=== PATIENT | male | born 1940 | race Caucasian/White ===

== ENCOUNTER 2016-04-30 19:26 | Emergency (ER) | payer OTHER ==
[~2016-04-30 19:26] MED LIST: AMLO10TA3 PO; CALC-235 PO; IPRA4AER IH; KLO1T PO; METO25TA99 PO; MOXI400T32 PO; OXYC5TAB72 PO; QUET50TA55 PO; TAMS0.4C98 PO; TERA2CAP4 PO; TRAZ-115 PO; VENL75TA3 PO
[2016-04-30 19:36] VITALS: BP 105/72; PULSE 69; RESP 18; O2SAT 98
--- NOTE | 2016-04-30 19:54 | ED.REPORT ---
HPI-Psychiatric Illness Date of Service Apr 30, 2016 ED Provider: Sebastian Herman DO A 76 year old male with a history of depression and PTSD from [place] presents to the ED complaining of depression. The pt states that he has been isolated by choice since 11/2015 and has been suffering from depression and suicidal ideation. The pt has been feeling "very desperate" and surrendered his firearm to avoid suicide. He experienced a flashback several days ago but did not come to the ED because he had other obligations at the time. The pt denies self- mutilation, suicidal ideation, or homicidal ideation while in the ED but is requesting medications to "settle him down." [facility] and is hoping to be admitted at that point. Nursing Notes Stated Complaint: DEPRESSION Chief Complaint: Psychiatric Complaint Nursing Notes Reviewed: Yes Allergies: Coded Allergies: meperidine (Verified Allergy, Severe, HIVES, 12/02/15) HAS TOLERATED OXYCODONE X MANY morphine (Verified Allergy, Severe, HIVES, 12/02/15) HAS TOLERATED OXYCODONE X MANY hydroxyzine (Verified Allergy, Intermediate, Hives, 12/02/15) codeine (Verified Allergy, Unknown, 12/02/15) HAS TOLERATED OXYCODONE X MANY Scheduled Amlodipine (Amlodipine) 10 Mg Tablet 10 MG PO DAILY Calcium Carbonate/Vitamin D3 (Calcium 250+D Tablet) 1 Each Tablet 2 EACH PO BID Metoprolol Succinate ER (Metoprolol Succinate ER) 25 Mg Tab.er.24h 25 MG PO DAILY Moxifloxacin (Moxifloxacin) 400 Mg Tablet 400 MG PO DAILY Quetiapine Fumarate (Quetiapine Fumarate) 50 Mg Tablet 50 MG PO HS Tamsulosin (Flomax) 0.4 Mg Capsule 0.4 MG PO QAM Terazosin (Terazosin) 2 Mg Capsule 2 MG PO HS Trazodone (Trazodone) 50 Mg Tablet 25 MG PO HS Venlafaxine (Venlafaxine) 75 Mg Tablet 225 MG PO DAILY Scheduled PRN Albuterol/Ipratropium (Combivent Respimat Inhal [place]) 120 Spr/4 Gm Inhaler 1 PUFF IH QID PRN PRN For Shortness of Breath Clonazepam (Clonazepam) 1 Mg Tablet 1 MG PO BID PRN PRN For Anxiety oxyCODONE (oxyCODONE) 5 Mg Tablet 5-10 MG PO Q4H PRN PRN For Pain General Time Seen by MD: 19:54 Chief Complaint Depressed Hx Obtained From: Patient Arrived By: Walk-in Onset Occurred: More than a week ago... Symptom Duration: Since onset Recent Healthcare: No recent hospitalization, Recent doctor visit Similar Sx Previous: Yes Risk-Psychiatric Illness Suicide Risk Stratification Suicide Risk Factors - Adult: : Access to firearms RF Statements: Risk factors reviewed Past Medical History Past Medical History depression PTSD from [place] Past Surgical History none reported Smoking History Unknown if Ever Smoker Ambulatory Status Independent Review of Systems Constitutional: Denies: Fever Respiratory: Denies: Non-productive cough, Shortness of breath Cardiovascular: Denies: Chest pain GI: Denies: Abdominal pain Skin: Denies Rash Psychiatric: Reports: Depression, Suicidal ideation (several days ago, not in ED), Denies: Homicidal ideation Complete sys rev & neg: except as marked. Physical Exam Initial Vital Signs Vital Signs (First) Date Time Temp Pulse Resp B/P Pulse Ox O2 Delivery O2 Flow Rate FiO2 04/30/16 19:36 36.4 69 18 105/72 98 Room Air Initial VS: Reviewed General/Constitutional: Awake, Alert rambling, explaining experiences in [place] Neurologic: Oriented X3, Speech NL, No motor deficits, No sensory deficits Psychiatric: Not suicidal, Not homicidal requesting help Head / Eyes: Atraumatic, Normocephalic, PERRL, EOMI ENT: Atraumatic, Airway patent, Mucous membranes moist Respiratory / Chest: Atraumatic, Breath sounds NL, Breath sounds = bilat, No respiratory distress Cardiovascular: Heart rate NL, Regular rhythm, Heart sounds NL Abdomen: Atraumatic, Soft, Non-tender Skin: Atraumatic, Color NL, No rash, Warm, Dry Neck: Atraumatic, Supple, Full range of motion Back: Atraumatic, Full range of motion Upper Extremity / MS: Atraumatic, Full range of motion Lower Extremity / Pelvis / MS: Atraumatic, Full range of motion Interpretation & Diagnostics Lab Results Interpretation Result Diagram: 04/30/16202004/30/162020 Test 04/30/16 20:21 White Blood Count 7.0th/mm3 (3.8-10.1) Red Blood Count 3.95mil/mm3 (4.40-5.80) Hemoglobin 10.9g/dL (13.8-17.2) Hematocrit 33.8% (41.0-50.0) Mean Corpuscular Volume 85.6fL (81-100) Mean Corpuscular Hemoglobin 27.6pg (27.0-35.0) Mean Corpuscular Hemoglobin Concent 32.2% (32.0-37.0) Red Cell Distribution Width 13.6% (12.3-15.4) Platelet Count 423bil/L (150-400) Neutrophils (%) (Auto) 66.5% (40-74) Lymphocytes (%) (Auto) 24.9% (14-46) Monocytes (%) (Auto) 8.0% (4-12) Eosinophils (%) (Auto) 0% (0-5) Basophils (%) (Auto) 0.3% (0-3) Sodium Level 133mEq/L (134-144) Potassium Level 4.3mEq/L (3.5-5.2) Chloride Level 100mEq/L (97-108) Carbon Dioxide Level 19mmol/L (18-29) Blood Urea Nitrogen 23mg/dL (8-27) Creatinine 1.71mg/dL (0.76-1.27) Estimat Glomerular Filtration Rate 42mL/min (>59) Glucose Level 97mg/dL (60-99) Calcium Level 9.2mg/dL (8.5-10.1) Total Bilirubin 0.3mg/dL (0.0-1.2) Aspartate Amino Transf (AST/SGOT) 59U/L (0-50) Alanine Aminotransferase (ALT/SGPT) 46U/L (0-44) Alkaline Phosphatase 110U/L (25-160) Total Protein 7.5g/dL (6.4-8.4) Albumin 3.7g/dL (3.4-5.0) Thyroid Stimulating Hormone (TSH) 3.040uIU/mL (0.450-4.500) Hold Forrest Top Tube Received (Received) Alcohols < 10mg/dL (0-10) Pulse Oximetry Interpretation Pulse Oximetry Interpretation: 98% on room air Pulse Oximetry: Pulse Ox normal Re-Eval/Medical Decision Med Decision/Clinical Course Mr. Benítez is not suicidal nor homicidal. He is clearly anxious. Our secondary social studies teacher recommends discharge with anxiolytics. Mr. Benítez does not like the benzodiazepines that he had been prescribed visit to sedating. He was given lorazepam and he felt much better. My intention was to discuss with him a short course of lorazepam until [facility]. However he left before I could talk to him at discharge. He was not suicidal nor homicidal slight could not force him to stay either way. We will notify the police to see if they can do a welfare check on him because he is a [place] with PTSD and access to firearms. I think that he is going to do well as long as close outpatient follow-up. Source of Hx: Old records Re-Evaluation/Progress : Time of Eval: 21:15 Patient Status: Condition improved Re-Evaluation/Progress Note: Pt rechecked, who is feeling significantly better with Ativan. The plan for discharge is discussed. The pt understands and agrees with the plan. All questions are addressed at this time. Consultation : Call Returned at: 20:48 [employer]: Agrees with eval Note: Spoke with secondary social studies teacher in the ED. warp worker recommends discharge. Counseled Regarding: Diagnosis, Lab results, Need for follow-up, When/why to return to ED Discharge & Departure Impression: Primary Impression: Posttraumatic stress disorder )( Condition at Discharge: No danger to self, No danger to others, No suicidal ideation, No homicidal ideation Disposition: Home Discharge Condition All VS Reviewed: Yes Condition: Stable Patient Instructions: Generalized Anxiety Disorder (GEN), Major Depression (DC) Additional Instructions: [facility] your [facility]. Return to the emergency department if you develop any new or worsening symptoms. Do not drive tonight or while you are under the influence of any sedating medications. Return if you develop any suicidal or homicidal ideations. Return if you feel that you are having a medical or psychiatric emergency. Referrals: [facility] Res[facility] Scribe Attestation Portions of this note were transcribed by Sourav Dodge. I, Dr. Herman personally performed the history, physical exam and medical decision-making; I reviewed and confirmed the accuracy of the information in the transcribed note. Signed by: Padmaja Whyte, 04/30/2016 and 2331. copies to: [facility] Res[facility] Sebastian Herman DO Apr 30, 2016 19:54 SOURAV DODGE Apr 30, 2016 20:16
[2016-04-30 20:34] LABS: BASOPHILS % (AUTO) 0.3 % (0-3); EOSINOPHILS % (AUTO) 0 % (0-5); Mean Corpuscular Hemoglobin 27.6 pg (27.0-35.0); Mean Corpuscular Volume 85.6 fL (81-100); NEUTROPHILS % (AUTO) 66.5 % (40-74); Platelet Count 423 bil/L (150-400)
[2016-04-30] MEDS ORDERED: LORazepam 0.5 mg Tablet PO ONE (20:50)
[2016-04-30] MEDS ORDERED: _LORazepam 1 mg Tablet PO PRN (21:25)
== END 2016-04-30 21:35 | disposition home or self-care (01) ==
LOC: EDUNIT# 19:26 → SED 19:26
DX: F43.10 Post-traumatic stress disorder, unspecified (principal); Z88.5 Allergy status to narcotic agent; Z88.8 Allergy status to other drugs, medicaments and biological substances
CPT/HCPCS: 36415; 80053; 82075; 84443; 85025; 99284; G0480

== ENCOUNTER 2016-05-19 17:45 | Emergency (ER) | payer OTHER ==
[~2016-05-19] VITALS: Ht 177.8 cm; Wt 75.9 kg
[2016-05-19 18:01] VITALS: BP 175/95; PULSE 87; RESP 20; O2SAT 93
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
[2016-05-19 19:53] VITALS: BP 164/98; PULSE 91; RESP 17; O2SAT 95
== END 2016-05-19 21:00 | disposition home or self-care (01) ==
LOC: SED 17:45
DX: M54.9 Dorsalgia, unspecified (principal); G89.29 Other chronic pain; M25.512 Pain in left shoulder; V89.2XXA Person injured in unspecified motor-vehicle accident, traffic, initial encounter; Y93.89 Activity, other specified; Y92.410 Unspecified street and highway as the place of occurrence of the external cause; Y99.8 Other external cause status; I10 Essential (primary) hypertension; K21.9 Gastro-esophageal reflux disease without esophagitis; J44.9 Chronic obstructive pulmonary disease, unspecified; Z90.5 Acquired absence of kidney; Z88.5 Allergy status to narcotic agent; Z88.8 Allergy status to other drugs, medicaments and biological substances

== ENCOUNTER 2016-05-21 03:43 | Inpatient (IN) | payer OTHER ==
[2016-05-21] VITALS (14 sets, daily range): BP systolic 126–168; BP diastolic 56–93; PULSE 57–104; RESP 18–24; O2SAT 93–98
[~2016-05-21] VITALS: Ht 177.8 cm; Wt 78.0 kg
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
[2016-05-21] MEDS ORDERED: Albuterol-Ipratropium 3 mL Inhalation Solution NEB ONE (03:55)
[2016-05-21] MEDS ORDERED: Furosemide 10 mg/mL 4 mL Inj IVPUSH ONE (03:55)
[2016-05-21] MEDS ORDERED: Albuterol 2.5 mg/3 mL Inhalation Solution NEB ONE ×2 (03:55→05:40)
[2016-05-21 04:15] LABS: BASOPHILS % (AUTO) 0.2 % (0-3); EOSINOPHILS % (AUTO) 0 % (0-5); MONOCYTES % (AUTO) 8.1 % (4-12); Mean Corpuscular Hemoglobin 27.8 pg (27.0-35.0); Mean Corpuscular Volume 87.7 fL (81-100); NEUTROPHILS % (AUTO) 72.3 % (40-74); Platelet Count 392 bil/L (150-400)
[2016-05-21 04:32] LABS: INR 0.97 ratio
[2016-05-21 04:38] LABS: TROPONIN T 0.021 ug/L (0.0-0.011)
[2016-05-21 04:49] LABS: Magnesium 1.8 mg/dL (1.6-2.6)
[2016-05-21 04:54] LABS: COLOR,URINE STRAW (YELLOW)
[2016-05-21 04:55] LABS: APPEARANCE,URINE CLEAR (CLEAR,HAZY); OCCULT BLOOD,URINE NEGATIVE (NEGATIVE); UROBILINOGEN,URINE NORMAL (NORMAL)
[2016-05-21] MEDS ORDERED: MethylprednisoLONE Sodium Succinate 62.5 mg/mL 2 mL Inj IVPUSH ONE (06:05)
--- NOTE | 2016-05-21 07:19 | DRSVH ---
PROCEDURE: X-RAY CHEST ONE VIEW, PORTABLE ([id number]) INDICATIONS: chf TECHNIQUE: One view of the chest was acquired. COMPARISON: [facility], CR, XR CHEST 2VW, 05/18/2016, 17:18. FINDINGS: Surgical changes and devices: Cardiac recording device is projected over the left apex. This Lungs and pleura: No pleural effusions or pneumothorax. Lungs are clear. Mediastinum: Mediastinal contours appear normal. Heart size is normal. Bones and chest wall: No suspicious bony lesions. Overlying soft tissues appear unremarkable. IMPRESSION: No acute cardiopulmonary findings. Dictated by: Mitra Marshall M.D. on 05/21/2016 at 7:16 Approved by: Mitra Marshall M.D. on 05/21/2016 at 7:17
[2016-05-21] MEDS ORDERED: Ondansetron 2 mg/mL 2 mL Inj IVPUSH PRN (08:00)
[2016-05-21] MEDS ORDERED: Polyethylene Glycol (PEG) 17 Gm Powder PO PRN (08:00)
[2016-05-21] MEDS ORDERED: Alum-Mag Hydrox-Simeth 30 mL Suspension PO PRN (08:00)
[2016-05-21] MEDS ORDERED: Albuterol-Ipratropium 3 mL Inhalation Solution NEB SCH (08:30)
--- NOTE | 2016-05-21 09:23 | NUR ---
Admission Patient arrived via WC from ED at approx 0915. Oriented patient to room and hospital policies. Patient ambulated to bathroom as SBA. Does state that he uses a FWW at home as baseline. Bed locked and in low position. Continue frequent rounding.
[2016-05-21] MEDS: Potassium Chloride 20 mEq SR Tablet PO SCH ×2 (11:25→21:47)
[2016-05-21] MEDS: Furosemide 10 mg/mL 4 mL Inj IVPUSH SCH ×2 (11:27→21:48)
[2016-05-21] MEDS ORDERED: Albuterol-Ipratropium 120 Spray 4 Gm Inhaler INHALATION PRN (14:10)
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
[2016-05-21] MEDS: MethylprednisoLONE Sodium Succinate 40 mg/mL Inj IVPUSH SCH (18:00)
--- NOTE | 2016-05-21 18:35 | NUR ---
Evaluation completed. Please go to "Notes" then click on "Assessments and Notes" (bottom left corner of screen). Then select appropriate discipline tab on top of screen.
[2016-05-21] MEDS: LORazepam 0.5 mg Tablet PO PRN (19:54)
[2016-05-21] MEDS: Albuterol-Ipratropium 3 mL Inhalation Solution NEB SCH (19:56)
[2016-05-21] MEDS ORDERED: CALCIUM CARBONATE PO SCH (20:30)
[2016-05-21] MEDS ORDERED: VITAMIN D3 PO SCH (20:30)
[2016-05-22] VITALS (16 sets, daily range): BP systolic 102–146; BP diastolic 61–83; PULSE 68–157; RESP 13–24; O2SAT 91–98
[2016-05-22] MEDS: MethylprednisoLONE Sodium Succinate 40 mg/mL Inj IVPUSH SCH ×3 (01:40→17:10)
[2016-05-22] MEDS: Albuterol-Ipratropium 3 mL Inhalation Solution NEB SCH ×4 (02:14→23:55)
[2016-05-22] MEDS: LORazepam 0.5 mg Tablet PO PRN ×3 (02:44→17:52)
[2016-05-22 05:48] LABS: BASOPHILS % (AUTO) 0.1 % (0-3); EOSINOPHILS % (AUTO) 0 % (0-5); MONOCYTES % (AUTO) 2.8 % (4-12); Mean Corpuscular Hemoglobin 28.1 pg (27.0-35.0); Mean Corpuscular Volume 86.6 fL (81-100); NEUTROPHILS % (AUTO) 93.1 % (40-74); Platelet Count 366 bil/L (150-400)
--- NOTE | 2016-05-22 05:55 | NUR ---
Anxiety/Pain Patient was anxious tonight, Ativan given x 2 for minimal calming. 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 Pain medication given x 1 for 10/10 general all over pain.
[2016-05-22 06:26] LABS: TROPONIN T 0.01 ug/L (0.0-0.011)
[2016-05-22 06:38] LABS: Magnesium 1.6 mg/dL (1.6-2.6); Phosphorus 2.9 mg/dL (2.5-4.9)
[2016-05-22] MEDS ORDERED: Magnesium Sulf 4 Gm/100 mL H2O 4 GM in IV Premix 1 EACH IV ONE (09:25)
[2016-05-22] MEDS: MeTOProlol XL 25 mg ER24 Tablet PO SCH (09:28)
[2016-05-22] MEDS: Furosemide 10 mg/mL 4 mL Inj IVPUSH SCH ×2 (09:28→22:15)
[2016-05-22] MEDS: Pantoprazole 40 mg ER24 Tablet PO SCH (09:28)
[2016-05-22] MEDS: Potassium Chloride 20 mEq SR Tablet PO SCH ×2 (09:29→22:15)
--- NOTE | 2016-05-22 11:46 | DRSVH ---
PROCEDURE: X-RAY CHEST, TWO VIEWS ([id number]) INDICATIONS: Follow up for CHF TECHNIQUE: 2 views of the chest were acquired. COMPARISON: [facility], CR, CHEST 1VW (PORTABLE), 12/16/2013, 23:36. [facility], CR, CHEST 2VW, 11/29/2013, 5:37. [facility], CR, XR CHEST 1VW (PORTABLE), 7, 4:13. [facility], CR, XR CHEST 2VW, 05/18/2016, 17:18. FINDINGS: Surgical changes and devices: A electronic device projecting to the left hemithorax. Lungs and pleura: No pleural effusions or pneumothorax. Lungs are clear. The nodular density in th e right lower lung zone is likely the nipple shadow. Mediastinum: Mediastinal contours are normal. Heart size is normal. Bones and chest wall: Multiple old left rib fractures noted. Soft tissues appear unremarkable. IMPRESSION: No acute cardiopulmonary disease. Dictated by: Tiana Gary M.D. on 05/22/2016 at 11:43 Approved by: Tiana Gary M.D. on 05/22/2016 at 11:44
[2016-05-22] MEDS ORDERED: Diltiazem 5 mg/mL 5 mL Inj IVPUSH ONE (13:30)
--- NOTE | 2016-05-22 13:36 | NUR ---
tachycardia parking technician notified this RN that the Pt had a HR that was sustaining in the 170s fir a few minutes. Pt was asymptomatic and resting in bed; denies chest pain but stated This RN asked tele to continue to monitor the pts HR on the patient who was asymptomatic. parking technician notified this RN 45 minutes later that pt was still in the 160-170s. Notified MD. Patient this time stated "I am having chest pain, but not heart pain, just chest pain from anxiety. I just don't feel well". VS: BP 128/77 P 156 RR 20, Spo2 92% on RA. Stat EKG preformed and Dilt bolus and drip ordered. PT to be transferred to [facility].
[2016-05-22] MEDS ORDERED: 0.9% Sodium Chloride 250 ML ONE (14:46)
[2016-05-22] MEDS: levoFLOXacin Inj 500 MG in IV Premix 1 EACH IV SCH (14:54)
[2016-05-22] MEDS: Diltiazem Inj 125 MG in 0.9% Sodium Chloride 100 ML, Pharmacy To Mix 1 EA IV SCH ×2 (15:08→23:06)
[2016-05-22] MEDS ORDERED: LORazepam 0.5 mg Tablet PO ONE (18:45)
--- NOTE | 2016-05-22 19:34 | NUR ---
Transfer to [facility] Afib/Agitation/weakness walking Pt transferred to [facility] at 14:00 from [facility], report received from ISABEL Pangsugar house supervisor: Pt has difficulty describing sensation in chest. He denies that it is pain, but reports he can feel his heart beating quickly. Tele: afib 150s on arrival to floor, Dilt bolus given and gtt started, rate down to 130-140s, gtt titrated up to 15mg/hr. Resp: Pt denies SOB, SPo2 92% on RA. GI/: Pt denies n/v/d Neuro: Pt calm, polite, and receptive to care upon arrival to [facility]. Pt increasingly anxious and reports feeling constrained and claustrophobic. Pt started demanding to return to "his" room on third floor. Ativan 0.5mg given. Dr Dominguez called for anxiolytic order. Ativan dose increased and given and PRN haldol started, but not given. Pt calmed once told that the Dr wanted him to remain on second floor. Pt also came out into [place] with IV pole at one point. While discussing his desire to leave with the nurse the pt's legs grew weak and shaky, pt was assisted back to bed by two nurses without falls but remained weak and unsteady with difficulty walking. Pt reported some pain in his legs which he said was not new. Despite questioning, it was difficult to ascertain from pt whether leg weakness is new.
[2016-05-22] MEDS ORDERED: LORazepam 1 mg Tablet PO PRN (20:00)
--- NOTE | 2016-05-22 22:11 | PCM.PNMED ---
Subjective Date of Service May 22, 2016 Subjective The patient is complaining of extremely high anxiety today. He thanked me for the Ativan and stated that it was helping him. However, the dose had to be escalated as patient continued to have a significant amount of anxiety. Patient has no other new complaints. He has some chest pressure. However, he claims a chest pressure is due to his anxiety and he is used to it. He does not think it is his heart. Exam Vital Signs Vital Sign - Last Date Time Temp Pulse Resp B/P Pulse Ox O2 Delivery O2 Flow Rate FiO2 05/22/16 21:30 36.5 106 24 102/63 93 Room Air 05/22/16 05:19 2.00 Intake and Output 05/21/16 05/21/16 05/22/16 Cumulative From/Thru 15:00 23:00 07:00 05/21/16 03:44 - 05/22/16 06:21 Intake Total 872 ml 800 ml 1672 ml Output Total 2125 ml 570 ml 2695 ml Balance -1253 ml 230 ml -1023 ml Intake Oral 872 ml 800 ml 1672 ml Output Urine Total 2125 ml 570 ml 2695 ml # Voids 2 2 # Bowel Movements 0 0 0 Exam General: Patient appears somewhat anxious today. Otherwise he is in no apparent distress. HEENT: Head is atraumatic and normocephalic. Eyes: Pupils are equally round and reactive to light and accommodation. Extraocular muscles are intact. Sclera are white, anicteric. Subconjunctival mucosa is pink. Ears and nose are unremarkable. Oropharynx: There is no mucosal lesions, there is no thrush, there is no pharyngitis. Neck: Is supple, there are no nodes, or masses or tenderness. Chest: Is slightly clearer today with persistent bibasilar rales and scattered rhonchi. Heart: Rate is tachycardic, rhythm is irregular. There is no murmur, rub or gallop appreciated. Abdomen: Good bowel sounds are present. Abdomen is soft, nontender, no organomegaly or masses were appreciated. Extremities: Are symmetrical and well perfused. There is no edema, there is no cellulitis, no rash. Neurologic: There are no focal neurological deficits. Cranial nerves II through XII are intact. There are no sensory or motor deficits. Psychiatric: Patients mood is somewhat anxious. Genital: Deferred Rectal: Deferred Lab and Diagnostics Result Diagram: 05/22/16 0530 05/22/16 0530 X-Rays, CTs and MRIs PROCEDURE: X-RAY CHEST ONE VIEW, PORTABLE ([id number]) INDICATIONS: chf TECHNIQUE: One view of the chest was acquired. COMPARISON: [facility], CR, XR CHEST 2VW, 05/18/2016, 17:18. FINDINGS: Surgical changes and devices: Cardiac recording device is projected over the left apex. This Lungs and pleura: No pleural effusions or pneumothorax. Lungs are clear. Mediastinum: Mediastinal contours appear normal. Heart size is normal. Bones and chest wall: No suspicious bony lesions. Overlying soft tissues appear unremarkable. IMPRESSION: No acute cardiopulmonary findings. Dictated by: Mitra Marshall M.D. on 05/21/2016 at 7:16 Approved by: Mitra Marshall M.D. on 05/21/2016 at 7:17 Assessment & Plan The patient is a 76-year-old white male with a history of hypertension, depression, pacemaker insertion and COPD who was just admitted to the [facility] PTSD unit in [place] for 2 weeks and was just discharged less than 48 hours ago. He began feeling like he was getting pneumonia in the left lung. He has had pneumonia in an numerous occasions. He was recently seen at [facility] as well as the [place] where he was diagnosed with pleurisy was put on penicillin. His cough and shortness of breath worsened following discharge and he beat became concerned again that he had pneumonia. Patient decided to seek medical care before symptoms became too severe as he has been hospitalized for 2 weeks at a time in the past for pneumonia. He states that he had pneumonia last November and it lasted 13 weeks". Therefore, patient came to [facility] emergency room for further evaluation and treatment. She was evaluated by Dr. Garcia. Patient was felt to have extreme shortness of breath. Patient had edema and jugular venous distention. His chest x-ray showed mildly increased heart size and mild venous engorgement consistent with CHF. His BNP was mildly elevated. Patient was treated with 40 mg of Lasix and with several 100 mL of urine output. Patient was also given a nebulizer treatment with some improvement. Is currently requesting a second treatment. He was eventually admitted to the hospitallist service for further evaluation and treatment. # Acute on chronic respiratory failure with exacerbation of COPD and hypoxia. - Patient is not on oxygen at home and is requiring approximately 3 L here of O2 per nasal cannula despite Lasix and 125 mg of IV Solu-Medrol and SVN treatments. - We will continue SVN treatments - We will continue his Medrol 40 mg IV every 8 hours - We will start levofloxacin 500 mg IV every 24 hours. - We will respiratory virus PCR panel - Check blood cultures and sputum culture if available - Check urine for streptococcal urinary antigen and for Legionella urinary antigen # Suspected congestive heart failure - We will check echocardiogram to further evaluate. The echocardiogram has not yet been either done or red. - We will give further doses of Lasix 40 mg IV twice a day - We will consider beta nivia therapy if necessary. However due to new onset atrial fibrillation with rapid ventricular response today will start on a Cardizem drip after a Cardizem IV bolus. - Patient feels some chest pressure and troponins have been trended and have normalized. He attributes it to anxiety. # Chest pressure - Troponins have been trended and have normalized. She will troponins were not very remarkable. - Could be exacerbated by anxiety and/or atrial fibrillation with rapid ventricular response. - Consider cardiology consult # Atrial fibrillation with rapid ventricular response. - Cardizem drip has been started after Cardizem bolus. - We will order anxiety relief with Ativan 1 mg by mouth 4 times a day when necessary - Consider cardiology consultation. # History of obesity - Patient had gastric bypass surgery and lost approximately 300 pounds - Consider nutrition consult - Multivitamin therapy # History of PTSD, anxiety and depression. Patient was just recently released from a two week stay in a locked inpatient PTSD unit at the [facility] in [place]. - We will offer lorazepam while in patient patient states that he does not want lorazepam ordered for home. - We will observe closely. # Disposition: I suspect patient will be here several more days for the evaluation and treatment of the above problems.. Pain Evaluation: Adequate Pain Control GI Prophylaxis: Proton Pump Inhibitor VTE Prophylaxis: Sub-Q Enoxaparin Resuscitation Status: CPR: Attempt Resuscitation Sumit Dominguez MD May 22, 2016 22:11
[2016-05-23] VITALS (12 sets, daily range): BP systolic 92–115; BP diastolic 56–84; PULSE 67–111; RESP 13–18; O2SAT 89–93
[2016-05-23 03:06] LABS: BASOPHILS % (AUTO) 0.1 % (0-3); EOSINOPHILS % (AUTO) 0 % (0-5); MONOCYTES % (AUTO) 2.4 % (4-12); Mean Corpuscular Hemoglobin 28.1 pg (27.0-35.0); Mean Corpuscular Volume 87.8 fL (81-100); NEUTROPHILS % (AUTO) 93.7 % (40-74); Platelet Count 422 bil/L (150-400)
[2016-05-23 03:28] LABS: Magnesium 2.5 mg/dL (1.6-2.6)
[2016-05-23] MEDS: Albuterol-Ipratropium 3 mL Inhalation Solution NEB SCH ×4 (05:32→22:24)
--- NOTE | 2016-05-23 05:45 | NUR ---
Demeanor/Behavior: Pt. agitated and argumentative throughout shift. Pt. highly anxious throughout shift as well. PRN Ativan administered with little effect. Pt. refused HS Seroquel. This nurse and charge nurse Domingo Yu RN at bedside throughout large portion of shift calming and de-escalating pt. Pt. has variable mentation and answers orientation questions correctly during assessment, however is confused at times and accuses staff of keeping him in a "beauty parlor" and a "storage closet". Pt. also needs very frequent reminders of what equipment and medications are being utilized for. Sitter at bedside for pt. agitation. Pt. remains agitated and extremely argumentative throughout shift. Additionally, pt. demanding that this nurse stay in room at all times with pt.
[2016-05-23] MEDS: LORazepam 1 mg Tablet PO PRN ×4 (08:08→22:04)
[2016-05-23] MEDS: Diltiazem Inj 125 MG in 0.9% Sodium Chloride 100 ML, Pharmacy To Mix 1 EA IV SCH (08:09)
[2016-05-23] MEDS: Furosemide 10 mg/mL 4 mL Inj IVPUSH SCH ×2 (08:33→22:03)
[2016-05-23] MEDS: MethylprednisoLONE Sodium Succinate 40 mg/mL Inj IVPUSH SCH ×2 (08:38)
--- NOTE | 2016-05-23 10:18 | NUR ---
Social Work: Initial Assessment Data & Assessment: See Initial Assessment. EMR reviewed. Patient is a 76 y/o male that admitted on 05/21/16 for COPD and CHF per H&P. House Coordinator met with patient to complete initial assessment, SW role reviewed and discharge plan discussed. Patient is alert and oriented x 3. patient uses a hearing device to hear. Patient could not recall PCP and patient insurance is [employer]. Patient has no LTC benefits. Patient does not have an Advance Directive and decline the information. Patient OLEGARIO is his friend Chuy Wiseman- [phone]. Patient lives home alone in a one story home with 2 steps to enter. Patient uses a WC at baseline, but he also has a walker. Patient has no HH history, but he has been to [facility] and rehab in the past. SW notified patient that PT is recommendin SNF. Patient stated that he is not sure if he wants to go to a SNF when discharged. SW will continue to work with patient on discharge plan. SW provided phone number and plan on white board in room. SW will continue to follow. Plan:Pt to likely discharge home with HH vs SNF. PT recommended SNF. SW will continue to follow. Addendum: 05/23/16 at 1027 by JOHNNY TOMAS Amended: Links added.
[2016-05-23] MEDS: Potassium Chloride 20 mEq SR Tablet PO SCH ×2 (10:28→22:03)
[2016-05-23] MEDS: levoFLOXacin Inj 500 MG in IV Premix 1 EACH IV SCH (10:28)
[2016-05-23] MEDS: MeTOProlol XL 25 mg ER24 Tablet PO SCH (10:29)
[2016-05-23] MEDS: Venlafaxine XR 75 mg ER24 Capsule PO SCH (10:29)
[2016-05-23] MEDS: Pantoprazole 40 mg ER24 Tablet PO SCH (10:29)
--- NOTE | 2016-05-23 10:54 | NUR ---
Spoke with Montse in patient access at [facility], this patient is 100% connected and he also holds MCR A & B. Updated ROLL HANDLER
--- NOTE | 2016-05-23 13:35 | PCM.PNMED ---
Subjective Date of Service May 23, 2016 Subjective Overnight: Per nursing notes patient reported to be agitated and argumentative throughout shift, refusing Seroquel and eventually requiring sitter at bedside for agitation. Today: Patient awake and alert and sitting up in bed. Difficult to direct patient regarding current situation and health status. Patient remains very fixated on his PTSD and care received prior to this admission. As convinced he has a pneumonia as he has had them in the past, fairly uncooperative in regards to helping us complete interview and exam. States that he does not trust us ( the doctors in the room) - but was able to be redirected with assurances that his wishes will be respected regarding his medical care and medications administered to him. Does not endorse any specific complaints. Exam Vital Signs Vital Sign - Last Date Time Temp Pulse Resp B/P Pulse Ox O2 Delivery O2 Flow Rate FiO2 05/23/16 11:45 36.9 95 16 113/84 93 Room Air 05/22/16 05:19 2.00 Intake and Output 05/22/16 05/22/16 05/23/16 Cumulative From/Thru 15:00 23:00 07:00 05/21/16 03:44 - 05/23/16 05:42 Intake Total 1022 ml 917 ml 3611 ml Output Total 650 ml 250 ml 3595 ml Balance 372 ml 667 ml 16 ml Intake Oral 872 ml 917 ml 3461 ml IV Total 150 ml 150 ml Output Urine Total 650 ml 250 ml 3595 ml # Voids 2 4 # Bowel Movements 0 0 Exam General: Awake and alert sitting up in bed, in no apparent distress with hearing aid device in place. Affect is guarded and somewhat confrontational. HEENT: Normocephalic, atraumatic. External ears without defect. Pupils equal, round, and reactive to light and accommodation. Neck: Supple with full range of motion. No jugular venous distension. Cardiovascular: Regular rate and rhythm with no murmurs appreciated. Pulmonary: Upper anterior wheezes, bilateral lower lobe crackles - or prominent on the right. Normal respiratory effort. No use of accessory muscles. Abdomen: Soft, nontender, nondistended. Extremities: No clubbing, cyanosis, edema, or lymphadenopathy appreciated. Skin: Normal temperature, turgor, and texture Neurological: Cranial nerves grossly intact. Psychiatric: Distant and guarded affect becoming easily agitated and confrontational. IVs and Medications Medications Reviewed: Medications were reviewed in detail Lab and Diagnostics Result Diagram: 05/23/16 0255 05/23/16 0255 Microbiology Urine Strep pneumo antigen negative Blood cultures pending Nasopharyngeal viral PCR pending X-Rays, CTs and MRIs . X-RAY CHEST ONE VIEW, PORTABLE IMPRESSION: No acute cardiopulmonary findings. Dictated by: Mitra Marshall M.D. on 05/21/2016 at 7:16 X-RAY CHEST, TWO VIEWS IMPRESSION: No acute cardiopulmonary disease. Dictated by: Tiana Gary M.D. on 05/22/2016 at 11:43 Assessment & Plan is a 76-year-old male with past medical history of hypertension, PTSD, depression, pacemaker placement and history of pneumonia admitted for shortness of breath and cough concern for pneumonia. Hospital day 2. 1. Acute on chronic respiratory failure with exacerbation of COPD and hypoxia. Present on admission. Ongoing - On presentation patient states this is secondary to pneumonia as he has had significant history of same per patient - Patient is not on oxygen at home and is requiring approximately 3 L here of O2 per nasal cannula despite Lasix and 125 mg of IV Solu-Medrol and SVN treatments. - Time of interview today patient on room air saturating low 90s - Continue duo nebs - Prednisone 40 mg daily - Levofloxacin discontinued, no clinical indication bacterial pneumonia - Appropriate cultures and serologies negative to date 2. Atrial fibrillation with rapid ventricular response. Not present on admission. Ongoing - Etiology unknown, possibly secondary to #3, patient believes secondary to anxiety as in #4 - Cardizem drip has been started after Cardizem bolus. - Attempt to wean Cardizem drip - Metoprolol XL 25 mg daily - Initial troponin slightly elevated 0.013, repeat troponin negative 2 - Consider cardiology consultation. 3. Suspected congestive heart failure. Present on admission. Ongoing - Echo pending, prior echo 10/22/2014 showed EF 60/65% - Lasix 40 mg IV twice a day - Consider beta nivia therapy if necessary. 4. PTSD with anxiety and depression. Present on admission. Ongoing - Just completed 2 week stay at [facility] for same - Continue lorazepam 1 mg every 6 when necessary - Continue Seroquel 25 mg by mouth 3 times a day - Continue venlafaxine 225 mg daily - Continue with doctor of nurse anesthesia (sitter) 5. Chest pressure - Possibly secondary to anxiety or A. fib as an #2 - Continue current medications as above 6. History of obesity - Patient had gastric bypass surgery and lost approximately 300 pounds - Consider nutrition consult - Multivitamin therapy 7. Hyperglycemia. Present on admission. Ongoing - A1c 5.3 - Continue with diabetic diet # Disposition: Remain inpatient status for at least another day, test results regarding pneumonia still pending and he remains on a diltiazem drip for rate control. Pain Evaluation: Adequate Pain Control GI Prophylaxis: Proton Pump Inhibitor VTE Prophylaxis: Sub-Q Enoxaparin Resuscitation Status: CPR: Attempt Resuscitation Attending Statement The patient was seen and examined together with Dr. Marx on 05/23/2016 and I agree with the history, exam and plan as outlined in the note above. . BRANDON MARX DO May 23, 2016 13:35 Sanjay Stout MD May 23, 2016 17:19
--- NOTE | 2016-05-23 14:11 | DRSVH ---
[facility] [address] [place] [address] Echocardiogram Report Name: JAYLEN LOPEZ RStudy Date : 05/23/2016 Height: 70 in Hospital Exam Location: [facility] Weight: 150 lb Gender: Male BSA: 1.8 m2 : 1940 Age: 76 yrs BP: 110/65 mmHg Reason For Study: CHF Ordering Physician: Performed By: Rosalia Cruz Interpretation Summary Left ventricular systolic function is normal without focal wall motion abnormalities. The ejection fraction is estimated to be 60-65%. LVEF has not changed since priro study. Left ventricular wall thickness is mild-moderately increased. The right ventricle is at the upper limits of normal in size. The right ventricular systolic function is normal. Right ventricular systolic pressure is estimated to be 20 mmHg plus the clinically estimated CVP which cannot be estimated on this exam. The left atrium is severely dilated. The right atrium is severely dilated. There is mild mitral regurgitation. There is no other significant valvular heart disease. The aortic root is mildly dilated. The ascending aorta is mildly enlarged. The aortic arch is mildly enlarged. Procedure: A two-dimensional transthoracic echocardiogram with color flow and Doppler was performed. The study quality was technically adequate. Comparison is made with the echocardiogram of 10-22-2014. The subcostal views were not obtained due to no visualization. The patient was in atrial fibrillation with rapid ventricular response during the exam with a heart rate exceeding 100 bpm. Left Ventricle: The left ventricle is normal in size. Left ventricular wall thickness is mild-moderately increased. Left ventricular systolic function is normal without focal wall motion abnormalities. The ejection fraction is estimated to be 60-65%. Diastolic function could not be accurately assessed due to atrial fibrillation. Right Ventricle: The right ventricle is at the upper limits of normal in size. The right ventricular systolic function is normal. Atria: The left atrium is severely dilated. The right atrium is severely dilated. There is no Doppler evidence for an atrial septal defect. Mitral Valve: The mitral valve leaflets appear normal. There is no evidence of stenosis, fluttering, or prolapse. There is mild mitral regurgitation. Aortic Valve: The aortic valve is trileaflet. The aortic valve is mildly calcified. The calculated aortic valve area is 1.9 cm2. The peak aortic velocity is 1.8 m/sec. The aortic valve mean gradient is 8 mmHg. There is no hemodynamically significant valvular aortic stenosis. No aortic regurgitation is present. Tricuspid Valve: The tricuspid valve leaflets are thin and pliable. There is trace tricuspid regurgitation. Right ventricular systolic pressure is estimated to be 20 mmHg plus the clinically estimated CVP which cannot be estimated on this exam. Pulmonic Valve: The pulmonic valve is not well visualized. There is no pulmonic valvular regurgitation. There is no other significant valvular heart disease. Great Vessels: The aortic root is mildly dilated. The ascending aorta is mildly enlarged. The aortic arch is mildly enlarged. The pulmonary artery is not well visualized, but is probably normal size. The inferior vena cava was not visualized. Pericardium/ Pleura There is no pericardial effusion. There is no pleural effusion. MMode/2D Measurements & Calculations LVIDd: 4.2 cm LA dimension: 5.0 cm RA long axis LVOT diam: 2.1 cm LVIDs: 2.9 cm AoV Opening FS: 30.1 % LA A2 area: 28.6 cm RA area EPSS: 0.24 cm LA A4 area: 23.5 cm Ao root diam IVSd: 1.3 cm LA length (vol) : 27.3 cm LVPWd: 1.5 cm RA vol asc Aorta Diam LA vol: 94.7 ml : 107.ml LA vol index RA Ao Arch Diam (Prox : 58.1 mm/ Trans): 3.6 cm : 51.3 ml/m2 RVDd major : 6.5 cm LV villeda. diameter/BSA LV sys. diameter/BSA RVD2 (mid) (cm/m^2): 2.3 (cm/m^2): 1.6 : 3.8 cm Doppler Measurements & Calculations Ao V2 max MV E max darío Med Peak E' Darío TR max darío : 184.7 cm/sec : 106.1 cm/sec : 221.7 cm/sec Ao max PG E/E' med: 15.1 TR max P.7 mmHg : 13.7 mmHg Lat Peak E' Darío PA V2 max: 92.5 cm/sec Ao mean PG PA mean P.2 mmHg E/E' lat: 11.5 PA Accel Time LVOT Max Darío E/e' average : 0.10 sec : 131.7 cm/sec ALICE(I,D): 1.9 cm sev ratio Ao V2 mean LV V1 max PG PA V2 mean ALICE indexed to BSA : 134.3 cm/sec : 71.9 cm/sec (cm^2/m^2): 1.0 Ao V2 VTI: 30.6 cmLV V1 VTI: 16.3 cm ALICE(V,D): 2.6 cm2 Reading Physician:DIONISIO
--- NOTE | 2016-05-23 14:46 | NUR ---
Social Work: Brief Note Data Assessment: SW met with patient and attempted to obtain SNF and HH choice, but patient stated that he did not want SNF. Patient stated that he was unable to make a HH decision until he speaks with his senior attorney. SW will continue to follow patient to assist with discharge needs. Plan: Patient will likely discharge home with HH. SW will continue to follow patient and assist with discharge needs. Mariana Cai, SAMEERA, ACM
--- NOTE | 2016-05-23 16:12 | NUR ---
Scheduled hospital [facility] June 03 check in 1040AM for 1050AM with Updated NOTCHING MACHINE OPERATOR
--- NOTE | 2016-05-23 18:11 | NUR ---
Sitter at bedside for safety. Pt cooperative with care for the most part although did refuse to work with PT. He was assisted with a bed bath. Accepting of scheduled medications although does refuse scheduled seroquel. Anxious at times and requesting ativan PRN, given twice this shift. Continues to have shoulder/back/hip pain and was given oxycodone x2 during this shift. Cardiac: Telemetry A-Fib, HR in low 100's. Cardizem gtt infusing at 15mg/hr. Resp: O2 sats stable on RA, SOB with exertion GI/: no BM yet this shift. Reports some issues retention Neuro: AxO x3. Anxiety and paranoia at times, PRN ativan given. Int:
--- NOTE | 2016-05-23 23:22 | NUR ---
Labile emotions and demeanor: Pt. having very labile emotions and demeanor towards staff. Pt. very agitated, aggressive, and argumentative towards staff at beginning of shift. Pt. threatening towards staff. Physician arrived to bedside to appease pt. who was demanding to speak with the physician. Pt. remained agitated even after physician left bedside. At approximately 2100, pt. suddenly became very cooperative and pleasant towards staff. Pt. now thanking staff for care and agreed to take HS medications. Giovanny Hart CNA and charge nurse Shannon Pennington RN witnessing pt.'s labile behavior.
[2016-05-24] VITALS (14 sets, daily range): BP systolic 85–110; BP diastolic 60–74; PULSE 85–108; RESP 10–22; O2SAT 88–94
[2016-05-24] MEDS: Diltiazem Inj 125 MG in 0.9% Sodium Chloride 100 ML, Pharmacy To Mix 1 EA IV SCH ×2 (00:36→22:44)
[2016-05-24] MEDS: LORazepam 1 mg Tablet PO PRN ×2 (04:15→09:28)
[2016-05-24] MEDS: Albuterol-Ipratropium 3 mL Inhalation Solution NEB SCH ×4 (04:57→23:13)
--- NOTE | 2016-05-24 06:25 | NUR ---
Urinary retention: Pt. only able to void 50mL urine independently during shift. Pt. states he has urge to void, however is unable to do so despite multiple attempts. Bladder scan performed, indicating 609mL in bladder. Physician notified of findings, orders received to perform straight cath. Straight cath completed, 700mL light kaveh urine drained from bladder.
--- NOTE | 2016-05-24 08:44 | DRSVH ---
PROCEDURE: X-RAY CHEST ONE VIEW, PORTABLE ([id number]) INDICATIONS: Poss Pneumonia TECHNIQUE: One view of the chest was acquired. COMPARISON: [facility], CR, XR CHEST 2VW, 05/22/2016, 8:29. [facility], CR, XR CHEST 1VW (PORTABLE), 05/21/2016, 4:13. FINDINGS: Surgical changes and devices: Electronic device overlying the left hemithorax. Lungs and pleura: No pleural effusions or pneumothorax. Lungs are clear. Aortic calcification seco ndary to atherosclerosis. Mediastinum: Mediastinal contours appear normal. Heart size is normal. Bones and chest wall: No suspicious bony lesions. Overlying soft tissues appear unremarkable. Maddy re bilateral shoulder joint degeneration. There is an ossicle inferior to the right glenohumeral join t compatible with an intra-articular body. IMPRESSION: No acute cardiopulmonary disease. Dictated by: Tiana Gary M.D. on 05/24/2016 at 8:42 Approved by: Tiana Gary M.D. on 05/24/2016 at 8:42
[2016-05-24 09:06] LABS: BASOPHILS % (AUTO) 0.1 % (0-3); EOSINOPHILS % (AUTO) 0 % (0-5); MONOCYTES % (AUTO) 5.4 % (4-12); Mean Corpuscular Hemoglobin 27.9 pg (27.0-35.0); Mean Corpuscular Volume 87.7 fL (81-100); NEUTROPHILS % (AUTO) 89.1 % (40-74); Platelet Count 369 bil/L (150-400)
[2016-05-24] MEDS: Pantoprazole 40 mg ER24 Tablet PO SCH (09:13)
[2016-05-24] MEDS: Venlafaxine XR 75 mg ER24 Capsule PO SCH (09:14)
[2016-05-24] MEDS: predniSONE 20 mg Tablet PO SCH (09:14)
[2016-05-24] MEDS: Potassium Chloride 20 mEq SR Tablet PO SCH ×2 (09:14→20:30)
[2016-05-24] MEDS: Furosemide 10 mg/mL 4 mL Inj IVPUSH SCH (09:29)
[2016-05-24 09:43] LABS: Magnesium 2.3 mg/dL (1.6-2.6)
--- NOTE | 2016-05-24 10:27 | NUR ---
Refused medication/Behavior Pt refused his Seroquel medication this AM. Cooperative with AM cares. Stated that he was starting to become agitated and was in pain. Administered 5mg PO Oxycodone and 1mg PO Ativan, pt upon reassessment is sleeping. Addendum: 05/24/16 at 1159 by ABEL GERBER RN Pt refusing PT. PT requested that pt move his briefcase off of his lap to allow him to get up. Pt was unable to move his briefcase off of his lap and became extremely agitated. Pt was reassured that we would not move his briefcase and he became calm. Will reapproach at later time. Addendum: 05/24/16 at 1611 by ABEL GERBER RN Pt refused of midday Seroquel.
--- NOTE | 2016-05-24 10:59 | PCM.PNMED ---
Subjective Date of Service May 24, 2016 Subjective Overnight: Per telemetry Patient remained in A. fib with IVCD running and heart rate 70s throughout the evening. Occasional PVCs no other events reported. Per nurse's notes. Patient continued to have labile emotions and demeanor towards staff, times becoming very agitated and aggressive/argumentative as well as threatening. After medications patient was cooperative and pleasant towards staff. Today: Patient to sleep at beginning of interview, awoken to voice though is hard of hearing. Was very calm and cooperative and very respectful towards physicians in rooms. Stating he has no specific complaints no cough shortness of breath or chest pain, though does endorse a left hip pain which she states is being well taken care of and managed with his current medication regimen. Exam Vital Signs Vital Sign - Last Date Time Temp Pulse Resp B/P Pulse Ox O2 Delivery O2 Flow Rate FiO2 05/24/16 09:06 36.9 91 15 100/66 92 Room Air 05/23/16 23:13 2.00 Intake and Output 05/23/16 05/23/16 05/24/16 Cumulative From/Thru 15:00 23:00 07:00 05/21/16 03:44 - 05/24/16 06:22 Intake Total 292 ml 1916 ml 1081 ml 6900 ml Output Total 200 ml 750 ml 4545 ml Balance 292 ml 1716 ml 331 ml 2355 ml Intake Oral 1546 ml 911 ml 5918 ml IV Total 292 ml 370 ml 170 ml 982 ml Output Urine Total 200 ml 750 ml 4545 ml # Voids 4 # Bowel Movements 0 0 0 Exam General: Awake and alert laying in hospital bed in no apparent distress without hearing aid device in place. Pleasant and cooperative demeanor. HEENT: Normocephalic, atraumatic. External ears without defect. Pupils equal, round, and reactive to light and accommodation, tinted eyeglasses in place Neck: Supple with full range of motion. No jugular venous distension. Cardiovascular: Regular rate and rhythm with no murmurs appreciated. Pulmonary: Upper anterior lung field expiratory wheezes bilaterally. Normal respiratory effort. No use of accessory muscles. Abdomen: Soft, nontender, nondistended. Extremities: No edema appreciated Skin: Normal temperature, turgor, and texture Neurological: Cranial nerves grossly intact. Psychiatric: Calm cooperative and pleasant. IVs and Medications Medications Reviewed: Medications were reviewed in detail Lab and Diagnostics Result Diagram: 05/24/16 0850 05/24/16 0850 Microbiology Urine Strep pneumo antigen negative Blood cultures pending Nasopharyngeal viral PCR pending X-Rays, CTs and MRIs . X-RAY CHEST ONE VIEW, PORTABLE IMPRESSION: No acute cardiopulmonary findings. Dictated by: Mitra Marshall M.D. on 05/21/2016 at 7:16 X-RAY CHEST, TWO VIEWS IMPRESSION: No acute cardiopulmonary disease. Dictated by: Tiana Gary M.D. on 05/22/2016 at 11:43 X-RAY CHEST ONE VIEW, PORTABLE IMPRESSION: No acute cardiopulmonary disease. Dictated by: Tiana Gary M.D. on 05/24/2016 at 8:42 Cardiac Echo Impressions . Echocardiogram Report Interpretation Summary Left ventricular systolic function is normal without focal wall motion abnormalities. The ejection fraction is estimated to be 60-65%. LVEF has not changed since priro study. Left ventricular wall thickness is mild-moderately increased. The right ventricle is at the upper limits of normal in size. The right ventricular systolic function is normal. Right ventricular systolic pressure is estimated to be 20 mmHg plus the clinically estimated CVP which cannot be estimated on this exam. The left atrium is severely dilated. The right atrium is severely dilated. There is mild mitral regurgitation. There is no other significant valvular heart disease. The aortic root is mildly dilated. The ascending aorta is mildly enlarged. The aortic arch is mildly enlarged. Assessment & Plan is a 76-year-old male with past medical history of hypertension, PTSD, depression, pacemaker placement and history of pneumonia admitted for shortness of breath and cough concern for pneumonia. Hospital day 3. 1. Acute on chronic respiratory failure with exacerbation of COPD and hypoxia. Present on admission. Ongoing - On presentation patient states this is secondary to pneumonia as he has had significant history of same - Patient is not on home O2, was initially requiring O2 nasal cannula to maintain saturation - Currently saturating in the low 90s on room air ir - Hold Lasix secondary to #5 - Prednisone 40 mg by mouth daily - DuoNeb's when necessary - Levofloxacin discontinued, no clinical indication bacterial pneumonia - Respiratory PCR positive for RSV - All other appropriate cultures and serologies negative to date 2. Atrial fibrillation with rapid ventricular response. Not present on admission. Ongoing - Etiology unknown, possibly secondary to #3, patient believes secondary to anxiety as in #4 - Cardizem drip continues - Continue to attempt to wean Cardizem drip - Metoprolol XL 25 mg twice a day - Initial troponin slightly elevated 0.013, repeat troponin negative 2 - Consider cardiology consultation if rate control achieved 3. Suspected congestive heart failure. Present on admission. Ongoing - Echo pending, prior echo 10/22/2014 showed EF 60/65% - Repeat echo showed EF 6065%, LVEF not changed. Normal RV function, severely dilated left and right atrium - Hold Lasix secondary to #5 - Consider beta nivia therapy if necessary. 4. PTSD with anxiety and depression. Present on admission. Ongoing - Just completed 2 week stay at [facility] in [place] for same - Continue lorazepam 1 mg every 4 when necessary - Continue Seroquel 25 mg by mouth 3 times a day - Continue venlafaxine 225 mg daily - Continue home trazodone 5 mg at bedtime - Continue with supervisor reinforced steel placing (sitter) 5. GILMAR. Present on admission. Ongoing -Creatinine has trended up, on admission 1.72 to 3.23 today -Renal US pending -Urine output last 24 hrs 750mL -Bladder scan showed ~100mL today -Repeat bladder scan tonight -Hold Lasix -Nephrology consult 6. Chest pressure. Present on admission. Resolved - Possibly secondary to anxiety or A. fib as an #2 - Continue current medications as above - Today patient has no complaints of this 7. History of obesity. Present on admission. Resolved - Patient had gastric bypass surgery and lost approximately 300 pounds - BMI 21.7 - Consider nutrition consult - Multivitamin therapy 8. Hyperglycemia. Present on admission. Ongoing - A1c 5.3 - Continue with diabetic diet 9. Hyponatremia. Not present on admission. Ongoing - Most likely secondary to delusional status, patient +2.3 L to date - Continue to monitor 10. BPH. Present on admission. Ongoing - Continue home doxazosin - Continue home tamsulosin # Disposition: Remain inpatient status for at least another day, patient has viral pneumonia. He remains on a diltiazem drip currently trying to wean off. We will reassess tomorrow anticipate discharge 1-2 days. [facility] contacted today no beds. Pain Evaluation: Adequate Pain Control GI Prophylaxis: Proton Pump Inhibitor VTE Prophylaxis: Sub-Q Enoxaparin Resuscitation Status: CPR: Attempt Resuscitation Attending Statement The patient was seen and examined together with Dr. Marx on 05/24/2016 and I agree with the history, exam and plan as outlined in the note above. . BRANDON MARX DO May 24, 2016 10:59 Sanjay Stout MD May 27, 2016 09:59
[2016-05-24] MEDS ORDERED: LORazepam 1 mg Tablet PO PRN (12:30)
--- NOTE | 2016-05-24 16:09 | NUR ---
Social Work Note: Continued Discharge Planning Data& Assessment: SW received phone call from Bautista ruby [place] socially responsible investment adviser who follows pt in the community. Pt had recent psychiatric hospitalization from May 06-May 18 for PTSD, anxiety and suicidal ideation. Pt has not communicated any suicidal ideation during this hospitalization. Pt has an appointment with psychiatric prescriber Janette David on May 31 at 2:45, at [address] through the [place] choice program. Pt was provided with [facility] phone number and with nurses aid was able to speak with Bautista today. SW to continue to follow and check in with regarding safety and if he is experiencing any suicidal ideation. SW to continue to follow. Plan: SW to continue to engage pt in discharge planning, encouraging home health vs. SNF and check in with regarding safety and if he is experiencing any suicidal ideation. SW to continue to follow. NATALIE Hernadez
--- NOTE | 2016-05-24 18:11 | NUR ---
Behavior Pt combative, attempting to leave AMA. Afib per monitor car operator, HR 125. No reported pain. Unable to reassure or calm patient despite multiple attempts. Dr Desir notified, IV ativan ordered and administered without change in pt behavior. Security, RN and sitter remain at bedside. Soft restraints placed for patient safety. Will continue to monitor.
[2016-05-24] MEDS: 0.9% Sodium Chloride 1,000 ML IV SCH (18:29)
[2016-05-24] MEDS ORDERED: Haloperidol 5 mg/mL Inj IVPUSH ONE (20:05)
--- NOTE | 2016-05-24 20:09 | NUR ---
/cardiac No urine output since 6:25 this AM when pt straight catheterization done. Bladder scan results showing < 150cc urine present in bladder. Patient denies distention or urge to void. Continues in atrial fibrillation per natural resources technician. HR controlled in the 90s. Pressure stable, 90s/60s. Dr Desir contacted and updated on patient status. Order for IVFs given. Continue to monitor I&0s closely and bladder scan PRN to r/o urinary retention.
--- NOTE | 2016-05-24 22:55 | NUR ---
Agitation Pt agitated with care. In restraints since previous shift. Difficult to redirect. Pt attempting to take off Cristine sleeve and remove IV. Pt stating "why are you doing this to me!." Calm approach given. PRN Haldol 5mg IV push given. Pt asleep within 5 mins of administration. VSS. Pt At times hypotensive at 93/59 being the lowest BP on the left arm.
[2016-05-25] VITALS (12 sets, daily range): BP systolic 95–111; BP diastolic 57–73; PULSE 85–125; RESP 12–22; O2SAT 90–100
[2016-05-25] MEDS: 0.9% Sodium Chloride 1,000 ML IV SCH ×2 (04:28→13:55)
[2016-05-25 05:18] LABS: Magnesium 2.3 mg/dL (1.6-2.6)
[2016-05-25] MEDS: Albuterol-Ipratropium 3 mL Inhalation Solution NEB SCH ×4 (06:46→20:17)
[2016-05-25 07:14] LABS: BASOPHILS % (AUTO) 0.1 % (0-3); EOSINOPHILS % (AUTO) 0 % (0-5); MONOCYTES % (AUTO) 6.8 % (4-12); Mean Corpuscular Hemoglobin 27.8 pg (27.0-35.0); Mean Corpuscular Volume 87.8 fL (81-100); NEUTROPHILS % (AUTO) 83.8 % (40-74); Platelet Count 351 bil/L (150-400)
[2016-05-25] MEDS: Potassium Chloride 20 mEq SR Tablet PO SCH ×2 (08:30→19:02)
--- NOTE | 2016-05-25 10:29 | NUR ---
D/C from PT; reorder when appropriate D/C from PT secondary to inablility or refusal to participate x3. Please reorder once pt is appropriate to participate.
[2016-05-25] MEDS: LORazepam 1 mg Tablet PO PRN ×3 (11:09→18:43)
[2016-05-25] MEDS: predniSONE 20 mg Tablet PO SCH (11:09)
[2016-05-25] MEDS: Venlafaxine XR 75 mg ER24 Capsule PO SCH (11:09)
--- NOTE | 2016-05-25 11:34 | PCM.PNMED ---
Subjective Date of Service May 25, 2016 Subjective Overnight:Per telemetry Patient remained in A. fib with IVCD running and heart rate in the 90s with a run of bigeminal PVCs. Patient remained agitated and attempting to remove IVs stating "why are you doing this to me" in addition to IV Ativan and Haldol 5 mg IV push given with affect. Elizondo cath placed with approximately 1 L urine drained. Today: Patient , and cooperative during interval, Ativan 1 mg push given just prior. States he is in no pain, has no known history of urinary retention or urinary obstruction. Agrees to be complacent with renal ultrasound which is still pending. Does not state he has any chest pain, shortness of breath or any other complaints. Exam Vital Signs Vital Sign - Last Date Time Temp Pulse Resp B/P Pulse Ox O2 Delivery O2 Flow Rate FiO2 05/25/16 10:34 106 05/25/16 07:54 15 106/73 93 Nasal Cannula 2.00 05/25/16 04:28 36.8 Intake and Output 05/24/16 05/24/16 05/25/16 Cumulative From/Thru 15:00 23:00 07:00 05/21/16 03:44 - 05/25/16 06:08 Intake Total 580 ml 1577 ml 9057 ml Output Total 0 ml 975 ml 5520 ml Balance 580 ml 602 ml 3537 ml Intake Oral 580 ml 300 ml 6798 ml IV Total 1277 ml 2259 ml Output Urine Total 0 ml 975 ml 5520 ml # Voids 4 # Bowel Movements 0 0 Exam General: Awake and alert laying in hospital bed in no apparent distress. Pleasant and cooperative demeanor, inquisitive about health status and care plan. HEENT: Normocephalic, atraumatic. External ears without defect. Pupils equal, round, and reactive to light and accommodation, tinted eyeglasses in place Neck: Supple with full range of motion. No jugular venous distension. Cardiovascular: Regular rate and rhythm with no murmurs appreciated. Pulmonary: Upper anterior lung field expiratory wheezes bilaterally. Normal respiratory effort. No use of accessory muscles. Abdomen: Soft, nontender, nondistended. Extremities: No edema appreciated Skin: Normal temperature, turgor, and texture Neurological: Cranial nerves grossly intact. Psychiatric: Calm cooperative and pleasant. IVs and Medications Medications Reviewed: Medications were reviewed in detail Lab and Diagnostics Result Diagram: 05/25/16 0655 05/25/16 0945 Microbiology Urine Strep pneumo antigen negative Blood cultures pending Nasopharyngeal viral PCR pending X-Rays, CTs and MRIs . X-RAY CHEST ONE VIEW, PORTABLE IMPRESSION: No acute cardiopulmonary findings. Dictated by: Mitra Marshall M.D. on 05/21/2016 at 7:16 X-RAY CHEST, TWO VIEWS IMPRESSION: No acute cardiopulmonary disease. Dictated by: Tiana Gary M.D. on 05/22/2016 at 11:43 X-RAY CHEST ONE VIEW, PORTABLE IMPRESSION: No acute cardiopulmonary disease. Dictated by: Tiana Gary M.D. on 05/24/2016 at 8:42 Cardiac Echo Impressions . Echocardiogram Report Interpretation Summary Left ventricular systolic function is normal without focal wall motion abnormalities. The ejection fraction is estimated to be 60-65%. LVEF has not changed since priro study. Left ventricular wall thickness is mild-moderately increased. The right ventricle is at the upper limits of normal in size. The right ventricular systolic function is normal. Right ventricular systolic pressure is estimated to be 20 mmHg plus the clinically estimated CVP which cannot be estimated on this exam. The left atrium is severely dilated. The right atrium is severely dilated. There is mild mitral regurgitation. There is no other significant valvular heart disease. The aortic root is mildly dilated. The ascending aorta is mildly enlarged. The aortic arch is mildly enlarged. Assessment & Plan is a 76-year-old male with past medical history of hypertension, PTSD, depression, pacemaker placement and history of pneumonia admitted for shortness of breath and cough concern for pneumonia. Hospital day 4. 1. Acute on chronic respiratory failure with exacerbation of COPD and hypoxia. Present on admission. Ongoing - On presentation patient states this is secondary to pneumonia as he has had significant history of same - Patient is not on home O2, was initially requiring O2 nasal cannula to maintain saturation - Currently saturating in the low 90s on room air ir - Hold Lasix secondary to #5 - Prednisone 40 mg by mouth daily - DuoNeb's when necessary - Levofloxacin discontinued, no clinical indication bacterial pneumonia - Respiratory PCR positive for RSV - All other appropriate cultures and serologies negative to date 2. Atrial fibrillation with rapid ventricular response. Not present on admission. Ongoing - Etiology unknown, possibly secondary to #3, patient believes secondary to anxiety as in #4 - Cardizem drip continues - Continue to attempt to wean Cardizem drip - Metoprolol XL 25 mg twice a day - Initial troponin slightly elevated 0.013, repeat troponin negative 2 - Consider cardiology consultation if rate control achieved 3. Suspected congestive heart failure. Present on admission. Ongoing - Echo 10/22/2014 showed EF 60/65% - Repeat echo showed EF 6065%, LVEF not changed. Normal RV function, severely dilated left and right atrium - Hold Lasix secondary to #5 - Consider beta nivia therapy if necessary. 4. PTSD with anxiety and depression. Present on admission. Ongoing - Just completed 2 week stay at [facility] in [place] for same - Continue lorazepam 1 mg every 4 when necessary - Continue Seroquel 25 mg by mouth 3 times a day - Continue venlafaxine 225 mg daily - Continue home trazodone 5 mg at bedtime - Continue with distribution supervisor (sitter) - Ativan 1-2 mg by mouth every 4 when necessary - Ativan 1 mg IV push every 4 when necessary - - Secondary to recurrent nighttime behavioral incidents patient will have Doxazosyn 2 mg by mouth at bedtime replaced with prazosin 2 mg at bedtime - If behavioral incidents continue give additional prazosin 2 mg (2 hours after initial dose), monitor for hypotension - If patient does not find benefit with this new medication regiment will obtain psychiatric consult tomorrow 05/26/2016 5. GILMAR. Present on admission. Ongoing -Creatinine has trended up, on admission 1.72 to 3.83 today -Renal US pending -Overnight Elizondo cath placed with 1 L urine drainage -Hold Lasix -Nephrology consult, the recommendations are appreciated 6. Chest pressure. Present on admission. Resolved - Possibly secondary to anxiety or A. fib as an #2 - Continue current medications as above -Patient continues to have no complaints of chest pain 7. History of obesity. Present on admission. Resolved - Patient had gastric bypass surgery and lost approximately 300 pounds - BMI 21.7 - Consider nutrition consult - Multivitamin therapy 8. Hyperglycemia. Present on admission. Ongoing - A1c 5.3 - Continue with diabetic diet 9. Hyponatremia. Not present on admission. Ongoing - Most likely secondary to delusional status, patient +2.3 L to date - Continue to monitor 10. BPH. Present on admission. Ongoing - Continue home doxazosin - Continue home tamsulosin # Disposition: Remain inpatient status for at least another day, patient has viral pneumonia. He remains on a diltiazem drip currently trying to wean off. We will reassess tomorrow anticipate discharge 1-2 days. [facility] Pain Evaluation: Adequate Pain Control GI Prophylaxis: Proton Pump Inhibitor VTE Prophylaxis: Sub-Q Enoxaparin Resuscitation Status: CPR: Attempt Resuscitation Attending Statement The patient was seen and examined together with Dr. Marx on 05/25/2016 and I agree with the history, exam and plan as outlined in the note above. . BRANDON MARX DO May 25, 2016 11:34 Sanjay Stout MD May 27, 2016 09:59
--- NOTE | 2016-05-25 11:45 | PCM.CHPMED ---
Subjective Date of Service: May 25, 2016 Provider requesting consult: BRANDON SANCHEZ DO Primary Physician: Admitting Physician: Sumit Dominguez MD Primary Care Physician: Jourdan Attending Physician: Sumit Dominguez MD Chief Complaint: Chief Complaint: shortness of breath and trouble with urination History of Present Illness: Nephrology Consult Note The patient is a 76-year-old white male with a history of hypertension, depression, pacemaker insertion and COPD who was just admitted to the [facility] PTSD unit in [place] for 2 weeks and was discharged less than 48 hours prior to readmission into [facility]. The patient states that he was becoming short of breath with some pain with breathing but denies a cough, reports from the H& P indicated that the patient felt he was developing a pneumonia as he has had pneumonia several times in the past. 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 He is seen by a urologist for his BPH and feels as if his difficulty with urination has become worse recently within the last several days. The patient denies a history of kidney stones, gout, HIV/hepatitis , diabetes, cataracts, protein of blood in his urine. The patient denies taking NSAIDS frequently and states that he uses them less than one dose a week. He is very hunger right now. He is a long time [facility] resident and denies hospitalization at other facilities besides the [facility] or [facility]. He is typically followed by a PCP at the [facility], however he cannot recall the doctors name. He is unsure of his past medical history at this time and cannot recall his prior surgeries. from the H&P from Dr. Dominguez "He began feeling like he was getting pneumonia in the left lung. He has had pneumonia in an numerous occasions. He was recently seen at [facility] as well as the [facility] where he was diagnosed with pleurisy was put on penicillin. His cough and shortness of breath worsened following discharge and he beat became concerned again that he had pneumonia. Patient decided to seek medical care before symptoms became too severe as he has been hospitalized for 2 weeks at a time in the past for pneumonia. He states that he had pneumonia last November and it lasted 13 weeks". Therefore, patient came to [facility] emergency room for further evaluation and treatment. She was evaluated by Dr. Garcia. Patient was felt to have extreme shortness of breath. Patient had edema and jugular venous distention. His chest x-ray showed mildly increased heart size and mild venous engorgement consistent with CHF. His BNP was mildly elevated. Patient was treated with 40 mg of Lasix and with several 100 mL of urine output. Patient was also given a nebulizer treatment with some improvement. Is currently requesting a second treatment. He was eventually admitted to the hospitallist service for further evaluation and treatment." Review of Systems: A comprehensive review of systems was obtained and all are negative except for what is included in the HPI. PMH Past Medical History obtained from the H&P PTSD, anxiety and depression after being involved in combat in [place] Bilateral cataracts History of obesity status post gastric bypass surgery patient weighed over 450 pounds and now weighs 154 pounds. BPH Surgical History obtained from the H&P of Dr. 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 The patient has had all this tooth removed. Home Medications Amlodipine (Amlodipine) 10 Mg Tablet 10 MG PO DAILY Calcium Carbonate/Vitamin D3 (Calcium 250+D Tablet) 1 Each Tablet 2 EACH PO BID Metoprolol Succinate ER (Metoprolol Succinate ER) 25 Mg Tab.er.24h 25 MG PO DAILY Moxifloxacin (Moxifloxacin) 400 Mg Tablet 400 MG PO DAILY Quetiapine Fumarate (Quetiapine Fumarate) 50 Mg Tablet 50 MG PO HS Tamsulosin (Flomax) 0.4 Mg Capsule 0.4 MG PO QAM Terazosin (Terazosin) 2 Mg Capsule 2 MG PO HS Trazodone (Trazodone) 50 Mg Tablet 25 MG PO HS Venlafaxine (Venlafaxine) 75 Mg Tablet 225 MG PO DAILY Scheduled PRN Albuterol/Ipratropium (Combivent Respimat Inhal [place]) 120 Spr/4 Gm Inhaler 1 PUFF IH QID PRN PRN For Shortness of Breath Clonazepam (Clonazepam) 1 Mg Tablet 1 MG PO BID PRN PRN For Anxiety oxyCODONE (oxyCODONE) 5 Mg Tablet 5-10 MG PO Q4H PRN PRN For Pain Allergies: Coded Allergies: meperidine (Verified Allergy, Severe, HIVES, 12/02/15) HAS TOLERATED OXYCODONE X MANY morphine (Verified Allergy, Severe, HIVES, 12/02/15) HAS TOLERATED OXYCODONE X MANY hydroxyzine (Verified Allergy, Intermediate, Hives, 12/02/15) codeine (Verified Allergy, Unknown, 12/02/15) HAS TOLERATED OXYCODONE X MANY Family History Family History obtained from the H&P of Dr. Dominguez His father at 59 of a myocardial infarction. He was a heavy smoker and drinker. Patient's mother at 40 after attempting suicide with a 22 caliber gun injuring her right frontal lobe she had to have a plate put over her frontal part of her cranium. She of complications at the age of 40 Patient one sister who is 72 years old and has COPD and is on home oxygen.. Social History Hx Alcohol Use: YesHx Substance Use: NoHx Tobacco Use: Yes (quit 24 years ago ) Smoking Status: Former Smoker (patient quit 31 years ago) Unknown if Ever Smoker Living Arrangement: Alone Exam Vital Signs Vital Sign - Last Date Time Temp Pulse Resp B/P Pulse Ox O2 Delivery O2 Flow Rate FiO2 05/25/16 10:34 106 05/25/16 07:54 15 106/73 93 Nasal Cannula 2.00 05/25/16 04:28 36.8 Intake and Output 05/24/16 05/24/16 05/25/16 Cumulative From/Thru 15:00 23:00 07:00 05/21/16 03:44 - 05/25/16 06:08 Intake Total 580 ml 1577 ml 9057 ml Output Total 0 ml 975 ml 5520 ml Balance 580 ml 602 ml 3537 ml Intake Oral 580 ml 300 ml 6798 ml IV Total 1277 ml 2259 ml Output Urine Total 0 ml 975 ml 5520 ml # Voids 4 # Bowel Movements 0 0 Additional Information: General: Awake and alert laying in hospital bed in no apparent distress. Pleasant and cooperative demeanor, inquisitive about health status and care plan. tinted eyeglasses in place Eyes: PERRLA, EOMI, anicteric sclera, noninjected conjunctiva HEENT: Normocephalic, atraumatic. External ears without defect. dry mucus membranes without central cyanosis or cobblestoning mucosa Neck: Supple with full range of motion. noted jugular venous distension. Cardiovascular: Regular rate and rhythm with no murmurs appreciated. Pulmonary: Upper anterior lung field expiratory wheezes bilaterally mild course breath sounds noted in the axillary bases bilaterally. Normal respiratory effort. No use of accessory muscles. Abdomen: Soft, nontender, nondistended. Extremities: pulses intact bilaterally at the radial and dorsalis pedis with no edema, cyanosis or clubbing appreciated Skin: Normal temperature, turgor, and texture Neurological: Cranial nerves grossly intact, without focal neurologic deficit Psychiatric: Calm cooperative and pleasant. Oriented to Time and person not place Lab and Diagnostics Result Diagram: 05/25/16 0655 05/25/16 0945 X-Rays, CTs and MRIs X-RAY CHEST ONE VIEW, PORTABLE ([id number]) IMPRESSION: No acute cardiopulmonary disease. Dictated by: Tiana Gary M.D. on 05/24/2016 at 8:42 Approved by: Tiana Gary M.D. on 05/24/2016 at 8:42 Additional Diagnostics: renal US ordered and pending Assessment & Plan Assessment is a 76-year-old male with past medical history of hypertension, PTSD, depression, pacemaker placement and history of pneumonia admitted for shortness of breath and cough concern for pneumonia. 1. Acute kidney injury ond chronic kidney disease. Present on admission. Ongoing -Creatinine has trended up, on admission 1.72 to 3.83 today - baseline creatine appears elevated around 1.3 or higher is is unclear currently the etiology of the kidney disease, this will need to be elucidated in the future -Likely a combination of poor renal perfusion with Afib with RVR and rapid reduction of blood pressure from rate control with diltiazem drip and rapid correction of hypervolemia with lasix therapy with systolic blood pressure dropping from 150s to 80s within approximately one day -NS at 100mL per hour will discontinue after this bag of IV fluids is finished to avoid fluid overload of CHF -Renal US pending -Overnight Schaffer cath placed with 1 L urine drainage -Hold Lasix -Changed Enoxaparin to Heparin SQ for DVT prophylaxis given poor creatinine clearance 2. Suspected congestive heart failure. Present on admission. Ongoing - prior echo 10/22/2014 showed EF 60/65% - Repeat echo showed EF 60-65%, LVEF not changed. Normal RV function, severely dilated left and right atrium - Hold Lasix secondary to #1 - discontinue IV fluids after current bag finished to avoid fluid overload - Consider beta nivia therapy if necessary. 3. urinary retention with a history of BPH. Present on admission. Ongoing - Continue home doxazosin - Continue home tamsulosin - bladder scan showed urinary retention and a reported 1000mL of urine with schaffer placed by primary team - renal US ordered and pending for causes of obstruction Patient was seen and examined. Agreed with Dr. Nice' assessment and plan as outlined. Thank you for the consultation. Problems: Pain Evaluation: Adequate Pain Control GI Prophylaxis: H2 nivia VTE Prophylaxis: Sub-Q Heparin (Unfractionated) Resuscitation Status: CPR: Attempt Resuscitation Gabe Nice DO May 25, 2016 11:45 Jose Valles MD May 26, 2016 08:49
--- NOTE | 2016-05-25 13:53 | NUR ---
NUTRITION ASSESSMENT: ASSESS: Pt is a 76yo M admitted for COPD/CHF. Pt has history of PTSD and on occasion can be combative and experience increased agitation. Currently requiring sitter. He is on a Heart healthy diet and due to GILMAR, nephrology has placed him on a 2g K restriction. He has been tolerating his diet well. PO varies a bit, overall eating ~50% of meals. Pt H&P, pt has history of ~300lb intentional wt loss due to gastric bypass surgery. Wt has been stable since admit. PMHX: HTN, PTSD, depression, pacemaker, pneumonia, COPD, gastric bypass. LABS: Reviewed. Na 133, Cl 96, Bun 61, Continuous Improvement Manager 3.83, Glu 156, Ca 8.3, Alb 3.4 MEDS: Reviewed. prednisone GI: 0 BM SKIN: Rogelio 16, no major issues CURRENT WTS: 68.7kg, BMI 21.8kg/m2, admit wt: 68.7kg, IBW: 75kg DIET: Heart Healthy, 2g K restriction, PO 0-75% (avg ~50%) EST. NEEDS: GILMAR Kcals: 1715-2060kcal/day (25-30kcal/kg) Pro: 40-55g/day (.6-.8g/kg) NUTRITION DIAGNOSIS: 1.) Altered nutrition related lab values related to GILMAR as evidence by need for 2gm K diet. 2.) Variable PO intake related at ams as evidence by PO intake varying from 0-75% and pt experiencing episodes of agitation NUTRITION INTERVENTION: 1.) Continue current diet at this time. If PO intake continues to be variable, recommend addition of Suplena nutrition shake on L tray as it is high in kcal, low in protein and low in K. MONITOR / EVAL: PO, labs, wt, BM, POC, nutrition status. Will continue to monitor per moderate nutrition risk guidelines.
--- NOTE | 2016-05-25 14:23 | DRSVH ---
PROCEDURE: US RENAL SONOGRAM INDICATIONS: 76-year-old male with elevated creatinine levels. TECHNIQUE: Real-time scanning was performed of the kidneys and bladder, with image documentation. COMPARISON: None. FINDINGS: Image quality is suboptimal secondary to patient combativeness and lack of cooperation. Kidneys: Kidneys are normal in size. Right kidney measures 11.3 cm long; left kidney measures 10.4 cm long. Right renal cortical thickness is 1.3 cm; left renal cortical thickness is 1.2 cm. Renal pa renchyma is diffusely hyperechoic. No hydronephrosis or nephrolithiasis. No suspicious solid mass l esions. Bladder: Decompressed by a Elizondo catheter, and unable to be further evaluated. Miscellaneous: No free pelvic fluid. IMPRESSION: A post-renal cause is not identified for renal insufficiency. Echogenic bilateral kidneys , consistent with medical renal disease. Dictated by: Enoch Zhu M.D. on 05/25/2016 at 14:19 Approved by: Enoch Zhu M.D. on 05/25/2016 at 14:22
[2016-05-25] MEDS: Polyethylene Glycol (PEG) 17 Gm Powder PO SCH (15:17)
--- NOTE | 2016-05-25 18:20 | NUR ---
Constipation/Afib/LOC Cardiac: Pt denies CP, Tele afib 90-115. cardizem gtt continues at 5mg/hr. Resp: SpO2: 93% on RA. Denies SOB at this time. GI/: schaffer draining to gravity. Denies n/v. No stool since 05/21 Mirilax and senna given. Pt very hungry this shift. Neuro: Alert and oriented x1. Pt states, "I don't know where I am". Agitated, at times. PRN ativan IV and PO ordered. Pt given 1mg ativan IV this AM followed by another 2mg PO two hours later when pt requested them. pt sleeping most of shift. Pt's LOC is diminished from when he was admitted.
[2016-05-25 19:02] LABS: APPEARANCE,URINE CLEAR (CLEAR,HAZY); COLOR,URINE YELLOW (YELLOW); PH,URINE 5.5 (5.0-8.0)
[2016-05-25 19:03] LABS: OCCULT BLOOD,URINE MODERATE (NEGATIVE); UROBILINOGEN,URINE NORMAL (NORMAL)
[2016-05-25] MEDS: Heparin 5,000 Unit/mL Inj SUBQ SCH (20:30)
[2016-05-25] MEDS: Diltiazem Inj 125 MG in 0.9% Sodium Chloride 100 ML, Pharmacy To Mix 1 EA IV SCH (22:51)
--- NOTE | 2016-05-25 23:18 | NUR ---
Confusion Pt awoke in a confusion. Has difficulty hearing. Staff using a pocket talker to assist communication. Pt redirected several times and assured that he is safe and cared for here at the hospital. Pt's HR at 120-140 BPM. BP 95/57. Provider contacted and plan is to watch pt as nephrology does not want to give pt any IV fluids. PO fluids encouraged. Pt has schaffer which is draining straw coloured urine. Currently, pt has 150mL output. Post HS medications, pt is asleep.
[2016-05-26] VITALS (10 sets, daily range): BP systolic 102–120; BP diastolic 66–85; PULSE 87–143; RESP 18–25; O2SAT 93–96
[2016-05-26 03:08] LABS: BASOPHILS % (AUTO) 0.1 % (0-3); EOSINOPHILS % (AUTO) 0 % (0-5); MONOCYTES % (AUTO) 5.8 % (4-12); Mean Corpuscular Volume 88.2 fL (81-100); Platelet Count 363 bil/L (150-400)
[2016-05-26] MEDS: Albuterol-Ipratropium 3 mL Inhalation Solution NEB SCH ×4 (03:27→20:52)
[2016-05-26 03:52] LABS: Magnesium 2.1 mg/dL (1.6-2.6)
--- NOTE | 2016-05-26 06:54 | NUR ---
RIGHT HEARING AID AT BEGINNING OF SHIFT THIS CITY SUPERINTENDENT WAS UNABLE TO LOCATE PTS RIGHT HEARING AID. PT ASSIST W/GOING THROUGH HIS BRIEFCASE;STILL UNFOUND. REPORTED TO RN/CLINICAL GENETICIST.
[2016-05-26] MEDS: Heparin 5,000 Unit/mL Inj SUBQ SCH ×2 (08:30→20:13)
[2016-05-26] MEDS: Polyethylene Glycol (PEG) 17 Gm Powder PO SCH ×2 (08:30→09:25)
[2016-05-26] MEDS ORDERED: Lactulose 20 Gm/30 mL 30 mL Syrup PO ONE (09:20)
[2016-05-26] MEDS: predniSONE 20 mg Tablet PO SCH (09:24)
[2016-05-26] MEDS: LORazepam 1 mg Tablet PO PRN ×3 (09:24→20:01)
[2016-05-26] MEDS: Venlafaxine XR 75 mg ER24 Capsule PO SCH (09:24)
[2016-05-26] MEDS ORDERED: Albuterol 1.25 mg/3 mL Inhalation Solution NEB ONE (10:25)
--- NOTE | 2016-05-26 10:39 | NUR ---
Spoke with Dana in patient access at [facility] and he confirmed there are no ICU step down beds available today. He did confirm patient did have recent stay with them in there [facility] unit, this was from April to May. The number for admit to this unit is [phone] and the patient will need to medically stable before attempting to admit patient to the [facility]. Spoke with DO resident following patient as of this morning patient is not medically stable. When patient becomes medically they will update case management. Updated SEMICONDUCTOR PROCESSOR
--- NOTE | 2016-05-26 11:36 | PCM.PNNEPH ---
Subjective Date of Service May 26, 2016 Subjective The patient continues to have a cough which was bothersome overnight. The patient has some belly pain which feels like constipation. The patient still had not had a bowel movement this morning however nursing reports a large bowel movement occurred since the patient was seen. Exam Vital Signs Vital Sign - Last Date Time Temp Pulse Resp B/P Pulse Ox O2 Delivery O2 Flow Rate FiO2 05/26/16 10:57 104 18 96 Room Air 05/26/16 08:10 102/66 2.00 05/26/16 02:48 36.4 Intake and Output 05/25/16 05/25/16 05/26/16 Cumulative From/Thru 15:00 23:00 07:00 05/21/16 03:44 - 05/26/16 06:18 Intake Total 2088 ml 350 ml 95008 ml Output Total 900 ml 250 ml 6670 ml Balance 1188 ml 100 ml 4825 ml Intake Oral 1200 ml 350 ml 8348 ml IV Total 888 ml 3147 ml Output Urine Total 900 ml 250 ml 6670 ml # Voids 4 # Bowel Movements 0 Exam General: Awake and alert laying in hospital bed in no apparent distress. Pleasant and cooperative demeanor, inquisitive about health status and care plan. tinted eyeglasses in place Eyes: PERRLA, EOMI, anicteric sclera, noninjected conjunctiva HEENT: Normocephalic, atraumatic. External ears without defect. dry mucus membranes without central cyanosis or cobblestoning mucosa Neck: Supple with full range of motion. noted mild jugular venous distension. Cardiovascular: Regular rate and rhythm with no murmurs appreciated. Pulmonary: Upper anterior lung field expiratory wheezes bilaterally mild course breath sounds noted in the axillary bases bilaterally. Normal respiratory effort. No use of accessory muscles. Abdomen: Soft, nontender, nondistended. Extremities: pulses intact bilaterally at the radial and dorsalis pedis with no edema, cyanosis or clubbing appreciated Skin: Normal temperature, turgor, and texture Neurological: Cranial nerves grossly intact, without focal neurologic deficit Psychiatric: Calm cooperative and pleasant. Normal mood and affect Lab and Diagnostics Result Diagram: 05/26/16 0245 05/26/16 0245 Microbiology Urine Strep pneumo antigen negative Blood cultures pending Nasopharyngeal viral PCR pending X-Rays, CTs and MRIs . X-RAY CHEST ONE VIEW, PORTABLE IMPRESSION: No acute cardiopulmonary findings. Dictated by: Mitra Marshall M.D. on 05/21/2016 at 7:16 X-RAY CHEST, TWO VIEWS IMPRESSION: No acute cardiopulmonary disease. Dictated by: Tiana Gary M.D. on 05/22/2016 at 11:43 X-RAY CHEST ONE VIEW, PORTABLE IMPRESSION: No acute cardiopulmonary disease. Dictated by: Tiana Gary M.D. on 05/24/2016 at 8:42 Cardiac Echo Impressions . Echocardiogram Report Interpretation Summary Left ventricular systolic function is normal without focal wall motion abnormalities. The ejection fraction is estimated to be 60-65%. LVEF has not changed since priro study. Left ventricular wall thickness is mild-moderately increased. The right ventricle is at the upper limits of normal in size. The right ventricular systolic function is normal. Right ventricular systolic pressure is estimated to be 20 mmHg plus the clinically estimated CVP which cannot be estimated on this exam. The left atrium is severely dilated. The right atrium is severely dilated. There is mild mitral regurgitation. There is no other significant valvular heart disease. The aortic root is mildly dilated. The ascending aorta is mildly enlarged. The aortic arch is mildly enlarged. Plan Impression is a 76-year-old male with past medical history of hypertension, PTSD, depression, pacemaker placement and history of pneumonia admitted for shortness of breath and cough concern for pneumonia. 1. Acute kidney injury on chronic kidney disease. Present on admission. Ongoing 2. Suspected congestive heart failure. Present on admission. Ongoing 3. urinary retention with a history of BPH. Present on admission. Ongoing Plan: 1. Acute kidney injury ond chronic kidney disease. Present on admission. Ongoing -Creatinine trended up after admission creatinine 1.72 to 3.38 today - baseline creatine appears elevated around 1.3 or higher is is unclear currently the etiology of the kidney disease, this will need to be elucidated in the future -Likely a combination of poor renal perfusion with Afib with RVR and rapid reduction of blood pressure from rate control with diltiazem drip and rapid correction of hypervolemia with lasix therapy with systolic blood pressure dropping from 150s to 80s within approximately one day -NS discontinue to avoid fluid overload of CHF -Schaffer cath placed with 1 L urine drainage -Renal US shows no cause of obstruction -Hold Lasix -Changed Enoxaparin to Heparin SQ for DVT prophylaxis given poor creatinine clearance 2. Suspected congestive heart failure. Present on admission. Ongoing - prior echo 10/22/2014 showed EF 60/65% - Repeat echo showed EF 60-65%, LVEF not changed. Normal RV function, severely dilated left and right atrium - Hold Lasix secondary to #1 - discontinue IV fluids to avoid fluid overload - Consider beta nivia therapy if necessary. 3. urinary retention with a history of BPH. Present on admission. Ongoing - Continue home doxazosin - Continue home tamsulosin - bladder scan showed urinary retention and a reported 1000mL of urine with schaffer placed by primary team - renal US ordered without cause of obstruction identified, likely BPH Gabe Nice DO May 26, 2016 11:36
[2016-05-26] MEDS ORDERED: Diltiazem CD 180 mg ER24 Capsule PO SCH (14:05)
--- NOTE | 2016-05-26 14:47 | NUR ---
Social Work: Continued Discharge Planning D: Pt discussed in am rounds and with REPRODUCTIVE HEALTHCARE ASSISTANT. Per REPRODUCTIVE HEALTHCARE ASSISTANT, once pt is medically stable for discharge case management can pursue a bed at [facility] the inpatient MH unit at the [facility]. See [facility] note for more details. Per MD, pt is medically stable and can discharge to the MH unit if they have a bed available. t/c to [facility] admissions pager ([phone]). Left case management telephone number. BORDER PATROL AGENT confirmed that pt does voluntarily want to go back to [facility] and was recently discharged from there. A: Pt who is ambulatory with PTSD P: BORDER PATROL AGENT working on contacting the [facility] for possible admission to the MH Unit for further stabilization. NATALIE Matias Addendum: 05/26/16 at 1637 by TROY VICKERS SS BORDER PATROL AGENT met with pt at bedside. Pt would like to go the MH unit at the [facility]. Pt denies current suicidal ideation and states that his most recent SI was "about 5 years ago." Pt does not remember the circumstances that got him admitted to the [facility] in April. Pt appears to be struggling with his recent and remote memory. BORDER PATROL AGENT reviewed pt's chart. At this time, pt does not appear to be medically stable with HR in the 120-130s. BORDER PATROL AGENT spoke with [facility] Psych ED Psychiatrist Dr. Zina Macias. She was very helpful and states that they are an acute stabilization unit for an acute psychiatric event. As the pt is not currently suicidal or homicidal, she does not feel that he would meet their clinical criteria for admission. Even then, the Pt's active medical conditions would need to be controlled before he could be admitted. At this time, they feel that the pt needs more outpatient follow up and as he is seen at the [facility], BORDER PATROL AGENT should consult with the [facility] WILIAM Siddiqi ([phone]) to discuss getting pt setup with in-home caregiving and outpatient mental health counseling. She will put in a consult to the [facility] SW to contact BORDER PATROL AGENT to discuss retirement care planning for this pt. t/c to Mony Siddiqi; left message to discuss pt's care and requested return phone call.
--- NOTE | 2016-05-26 17:04 | PCM.PNMED ---
Subjective Date of Service May 26, 2016 Subjective Overnight: Patient remained confused, and anxious. Was given medications at bedtime with effect Today: Patient awake and alert quite agitated and anxious, stating he does not know where he is or why he is here. [facility] he be returned to the third floor. States she has no memory of the last 2 days. Does not endorse any specific complaints though remains quite anxious during interview Exam Vital Signs Vital Sign - Last Date Time Temp Pulse Resp B/P Pulse Ox O2 Delivery O2 Flow Rate FiO2 05/26/16 16:22 36.6 137 25 120/75 95 Room Air 05/26/16 08:10 2.00 Intake and Output 05/25/16 05/25/16 05/26/16 Cumulative From/Thru 15:00 23:00 07:00 05/21/16 03:44 - 05/26/16 06:18 Intake Total 2088 ml 350 ml 22629 ml Output Total 900 ml 250 ml 6670 ml Balance 1188 ml 100 ml 4825 ml Intake Oral 1200 ml 350 ml 8348 ml IV Total 888 ml 3147 ml Output Urine Total 900 ml 250 ml 6670 ml # Voids 4 # Bowel Movements 0 Exam General: Awake and alert laying in hospital bed agitated and anxious. HEENT: Normocephalic, atraumatic. External ears without defect. Pupils equal, round, and reactive to light and accommodation Neck: Supple with full range of motion. No jugular venous distension. Cardiovascular: Regular rate and rhythm with no murmurs appreciated. Pulmonary: Upper anterior lung field expiratory wheezes bilaterally. Normal respiratory effort. No use of accessory muscles. Abdomen: Soft, nontender, nondistended. Extremities: No edema appreciated Skin: Normal temperature, turgor, and texture Neurological: Cranial nerves grossly intact. Psychiatric: Anxious and agitated IVs and Medications Medications Reviewed: Medications were reviewed in detail Lab and Diagnostics Result Diagram: 05/26/16 0245 05/26/16 1150 Microbiology Urine Strep pneumo antigen negative Blood cultures pending Nasopharyngeal viral PCR pending X-Rays, CTs and MRIs . X-RAY CHEST ONE VIEW, PORTABLE IMPRESSION: No acute cardiopulmonary findings. Dictated by: Mitra Marshall M.D. on 05/21/2016 at 7:16 X-RAY CHEST, TWO VIEWS IMPRESSION: No acute cardiopulmonary disease. Dictated by: Tiana Gary M.D. on 05/22/2016 at 11:43 X-RAY CHEST ONE VIEW, PORTABLE IMPRESSION: No acute cardiopulmonary disease. Dictated by: Tiana Gary M.D. on 05/24/2016 at 8:42 US RENAL SONOGRAM IMPRESSION: A post-renal cause is not identified for renal insufficiency. Echogenic bilateral kidneys, consistent with medical renal disease. Dictated by: Enoch Zhu M.D. on 05/25/2016 at 14:19 Cardiac Echo Impressions . Echocardiogram Report Interpretation Summary Left ventricular systolic function is normal without focal wall motion abnormalities. The ejection fraction is estimated to be 60-65%. LVEF has not changed since priro study. Left ventricular wall thickness is mild-moderately increased. The right ventricle is at the upper limits of normal in size. The right ventricular systolic function is normal. Right ventricular systolic pressure is estimated to be 20 mmHg plus the clinically estimated CVP which cannot be estimated on this exam. The left atrium is severely dilated. The right atrium is severely dilated. There is mild mitral regurgitation. There is no other significant valvular heart disease. The aortic root is mildly dilated. The ascending aorta is mildly enlarged. The aortic arch is mildly enlarged. Assessment & Plan is a 76-year-old male with past medical history of hypertension, PTSD, depression, pacemaker placement and history of pneumonia admitted for shortness of breath and cough concern for pneumonia. Hospital day 5. 1. Acute on chronic respiratory failure with exacerbation of COPD and hypoxia. Present on admission. Improved - On presentation patient states this is secondary to pneumonia as he has had significant history of same - Patient is not on home O2, was initially requiring O2 nasal cannula to maintain saturation - Currently saturating in the low 90s on room air ir - Hold Lasix secondary to #5 - Prednisone 40 mg by mouth daily, begin taper tomorrow 30 mg - DuoNeb's when necessary - Levofloxacin discontinued, no clinical indication bacterial pneumonia - Respiratory PCR positive for RSV - All other appropriate cultures and serologies negative to date 2. Atrial fibrillation with rapid ventricular response. Not present on admission. Ongoing - Etiology unknown, possibly secondary to #3, patient believes secondary to anxiety as in #4 - Cardizem drip discontinued, transitioned to oral diltiazem 240 mg daily - Metoprolol XL 25 mg twice a day - Initial troponin slightly elevated 0.013, repeat troponin negative 2 - Consider cardiology consultation if rate control not achieved 3. Suspected congestive heart failure. Present on admission. Ongoing - Echo 10/22/2014 showed EF 60/65% - Repeat echo showed EF 6065%, LVEF not changed. Normal RV function, severely dilated left and right atrium - Hold Lasix secondary to #5 4. PTSD with anxiety and depression. Present on admission. Ongoing - Just completed 2 week stay at [facility] for same - Continue lorazepam 1 mg every 4 when necessary - Continue Seroquel 25 mg by mouth 3 times a day - Continue venlafaxine 225 mg daily - Continue home trazodone 5 mg at bedtime - Continue with watch and clock repair clerk (sitter) when necessary - Ativan 1-2 mg by mouth every 4 when necessary - Ativan 1 mg IV push every 4 when necessary - Prazosin 2 mg by mouth at bedtime 5. GILMAR. Present on admission. Ongoing -Creatinine has begun to trend back down -Renal US did not show a cause for renal insufficiency -Overnight Elizondo cath placed with 1 L urine drainage -Hold Lasix -Nephrology consult, the recommendations are appreciated 6. Chest pressure. Present on admission. Resolved - Possibly secondary to anxiety or A. fib as an #2 - Continue current medications as above - Patient continues to have no complaints of chest pain 7. History of obesity. Present on admission. Resolved - Patient had gastric bypass surgery and lost approximately 300 pounds - BMI 21.7 - Consider nutrition consult - Multivitamin therapy 8. Hyperglycemia. Present on admission. Ongoing - A1c 5.3 - Continue with diabetic diet 9. Hyponatremia. Not present on admission. Resolved - Most likely secondary to dilution - Continue to monitor 10. BPH. Present on admission. Ongoing - Home doxazosin and changed to prazosin as a number for - Continue home tamsulosin # Disposition: Remain inpatient status for at least another day, patient has viral pneumonia. Successfully weaned off diltiazem drip, oral diltiazem increase in metoprolol for rate control. NH will not take patient for psychiatric needs at this time. Refer to social work note Pain Evaluation: Adequate Pain Control GI Prophylaxis: H2 nivia VTE Prophylaxis: Sub-Q Heparin (Unfractionated) Resuscitation Status: CPR: Attempt Resuscitation Attending Statement The patient was seen and examined together with Dr. Marx on 05/26/2016 and I agree with the history, exam and plan as outlined in the note above. . BRANDON MARX DO May 26, 2016 17:04 Sanjay Stout MD May 27, 2016 09:59
[2016-05-26] MEDS ORDERED: Diltiazem CD 240 mg ER24 Capsule PO ONE (17:35)
--- NOTE | 2016-05-26 18:44 | NUR ---
Afib/BM/Anxiety Cardiac: Pt denies CP. Tele: Afib 100-130. Pt has multiple PVCs Cardizem PO given this evening gtt will be titrated off. Resp: SpO2: 95%on RA. Denies SOB at this time. Pt encouraged to drink plenty of fluids. GI/: Large loose BM this AM x2 post senna, lactulose and Kayexalate held due to BMs and lowered K+ per nephrology instructions. Neuro: Alert and oriented x1, more reorientable and alert today. Pt is agitated at times and does not understand why he is in the hospital. Pt's short term memory is currently very poor. Ativan is effective and pt is able to assess his own anxiety level and needs for anxiolytics.
[2016-05-27] VITALS (10 sets, daily range): BP systolic 105–128; BP diastolic 70–97; PULSE 69–139; RESP 14–20; O2SAT 90–98
[2016-05-27] MEDS: LORazepam 1 mg Tablet PO PRN (03:41)
[2016-05-27 05:27] LABS: BASOPHILS % (AUTO) 0 % (0-3); EOSINOPHILS % (AUTO) 0 % (0-5); MONOCYTES % (AUTO) 4.6 % (4-12); Mean Corpuscular Hemoglobin 27.6 pg (27.0-35.0); Mean Corpuscular Volume 87.7 fL (81-100); NEUTROPHILS % (AUTO) 85.4 % (40-74); Platelet Count 373 bil/L (150-400)
--- NOTE | 2016-05-27 06:37 | NUR ---
NOC Pt has been in afib with HR in the 80-90's this shift. Occasional IVCD and PVC's noted. Pt is ORA and gets quite dyspneic with ambulation. His gait is unsteady. Pt is oriented only to self. Twice this shift pt had to be "talked down." It took about a half hour each time to get him to calm down. Ativan was given 3 times this shift. PT does not want to be touched at all, even though at times he was near falling over in room. He did get moderately agitated twice, but again was redirectable. He does not do well with multiple people. ONe person approach, with a relaxed approach. Elizondo intact with clear yellow urine. He was given oxy once for back pain. Lungs have rhonchi t/o. No cough noted. Remains on droplet precautions. Sitter present all shift for pt safety.
--- NOTE | 2016-05-27 07:47 | NUR ---
NOC At around 0710 pt was noted to be attempting to leave his room. THe sitter present was trying to keep in him room at which time pt became aggressive and made contact with the QUILLER MACHINE FIXER. A code rc was called at which time pt was then placed in 4pt restraints. PT is not cooperative. NOt oriented, and at this time, not able to redirect. PT was given 1mg of ativan when placed in restraints as his HR was up into the 150's. He is currently more calm in room and stating, "let me out, I did not do anything."
[2016-05-27] MEDS ORDERED: Diltiazem CD 180 mg ER24 Capsule PO SCH (08:30)
[2016-05-27] MEDS: Venlafaxine XR 75 mg ER24 Capsule PO SCH ×2 (08:30→11:41)
[2016-05-27] MEDS: Heparin 5,000 Unit/mL Inj SUBQ SCH ×2 (08:30→23:34)
[2016-05-27] MEDS: Polyethylene Glycol (PEG) 17 Gm Powder PO SCH (08:30)
[2016-05-27] MEDS: predniSONE 20 mg Tablet PO SCH ×2 (08:30→11:41)
[2016-05-27] MEDS: Diltiazem CD 240 mg ER24 Capsule PO SCH ×2 (08:30→11:41)
[2016-05-27] MEDS: Albuterol-Ipratropium 3 mL Inhalation Solution NEB SCH ×3 (10:52→23:00)
--- NOTE | 2016-05-27 13:53 | NUR ---
Social Work: Continued Discharge Planning D: Pt discussed in am rounds. Pt is still not medically stable. Overnight, pt had several episodes of combativeness with rn staff and received three doses of PRN Ativan. PT was placed in four point restraints which were removed at 0900 this morning. Today pt is not oriented to place or current situation. BAND STRAIGHTENER attempted to meet with pt at bedside however pt is sleeping heavily and not easily roused. BAND STRAIGHTENER reviewed pt's home medications with MD as referenced in [facility] Discharge summary on 05/18/2016. [facility] records were placed on pt's chart. BAND STRAIGHTENER is concerned that the combination of pt receiving Ativan and Halidol along with being placed in 4 point restraints, may be triggering a PTSD response and contributing to the pt's altered mental status. At baseline, pt has a labile personality and can be verbally aggressive. Clinically, the pt is ambulating I although rn staff state that the pt has periods where he is unsteady on his feet. Pt declined SNF during this hospitalization. Pt had expressed interest in going to the [facility] hospital. BAND STRAIGHTENER spoke with Mimi Henderson at the [facility] and they do not have any medical beds at this time. Pt is not clinically appropriate for the inpatient psychiatric unit at this time as he is not currently suicidal, homicidal or gravely disabled. t/c to pt's friend and only NOK, Chuy Melendez ([phone]); no answer. Left message requesting return phone call. BAND STRAIGHTENER staffed the pt's care with [facility] [employer]ier[employer] Knitter, Mony Siddiqi ([phone]). She is aware of the pt and his complex MH and medical history. She agrees that the pt will need ongoing MH Counseling and confirmed that he is scheduled with Janette Hooks on 05/31/16 at 2:45pm. She explained the process of getting the pt in-home care through the [facility] and explained that the pt would be required to have a need in three area of ADLS (Bathing, dressing, toileting, walking, etc.) and that the process takes many months to complete. BAND STRAIGHTENER informed her of the challenges of caring for the pt and agreed that his personality traits can make it challenging for caregivers and that chemical restraints may be contributing to his current change in mental status. She is requesting an update from BAND STRAIGHTENER when pt's discharge plan is more apparent. Plan: Evolving; BAND STRAIGHTENER will continue to follow pt's clinical course closely and work to develop a safe discharge plan with the pt once he is alert and oriented. BAND STRAIGHTENER to rule out any suicidal ideation/plan/intent prior to discharge. NATALIE Matias
--- NOTE | 2016-05-27 14:23 | PCM.PNMED ---
Subjective Date of Service May 27, 2016 Subjective Overnight: Patient continued to receive Ativan both by mouth as well as IV pushes for anxiety and agitation. This morning patient got up and attempted to leave the room. Night staff attempted to redirect the patient and patient quickly became agitated and somewhat combative code hang was called which led to 4-point restraints for patient and an additional dose of Ativan. Rate was controlled with diltiazem oral, remaining in the 80s overnight. Today: Patient awake and alert laying in hospital bed still very confused as to situation. Restraints were removed and patient remained calm. Seen patient later in the morning sitting at bedside chair awake and alert, and cooperative. Still does not remember many events during hospital admission though does remember he has a pneumonia that is being treated. [facility] patient was supposed to be on prior to this admission and will be changed and reflected in today's note. Exam Vital Signs Vital Sign - Last Date Time Temp Pulse Resp B/P Pulse Ox O2 Delivery O2 Flow Rate FiO2 05/27/16 10:52 69 18 97 Room Air 05/27/16 09:28 37.0 128/97 05/26/16 20:52 3.00 Intake and Output 05/26/16 05/26/16 05/27/16 Cumulative From/Thru 15:00 23:00 07:00 05/21/16 03:44 - 05/27/16 06:22 Intake Total 1100 ml 100 ml 86877 ml Output Total 1200 ml 450 ml 8320 ml Balance -100 ml -350 ml 4375 ml Intake Oral 950 ml 100 ml 9398 ml IV Total 150 ml 3297 ml Output Urine Total 1200 ml 450 ml 8320 ml # Voids 4 # Bowel Movements 2 2 Exam General: Awake and alert sitting up at site of hospital bed very anxious and agitated HEENT: Normocephalic, atraumatic. External ears without defect. Pupils equal, round, and reactive to light and accommodation. Tinted glasses in place. Hearing aid device not in place Neck: Supple with full range of motion. No jugular venous distension. Cardiovascular: Tachycardic rate with regular rhythm, no murmurs appreciated. Pulmonary: Upper anterior lung field expiratory wheezes bilaterally - audible without stethoscope. Normal respiratory effort. No use of accessory muscles. Abdomen: Soft, nontender, nondistended. Extremities: No edema appreciated Skin: Normal temperature, turgor, and texture Neurological: Cranial nerves grossly intact. Psychiatric: Anxious and agitated IVs and Medications Medications Reviewed: Medications were reviewed in detail Lab and Diagnostics Result Diagram: 05/27/1651905/27/16519 Microbiology Urine Strep pneumo antigen negative Blood cultures pending Nasopharyngeal viral PCR pending X-Rays, CTs and MRIs . X-RAY CHEST ONE VIEW, PORTABLE IMPRESSION: No acute cardiopulmonary findings. Dictated by: Mitra Marshall M.D. on 05/21/2016 at 7:16 X-RAY CHEST, TWO VIEWS IMPRESSION: No acute cardiopulmonary disease. Dictated by: Tiana Gary M.D. on 05/22/2016 at 11:43 X-RAY CHEST ONE VIEW, PORTABLE IMPRESSION: No acute cardiopulmonary disease. Dictated by: Tiana Gary M.D. on 05/24/2016 at 8:42 US RENAL SONOGRAM IMPRESSION: A post-renal cause is not identified for renal insufficiency. Echogenic bilateral kidneys, consistent with medical renal disease. Dictated by: Enoch Zhu M.D. on 05/25/2016 at 14:19 Cardiac Echo Impressions . Echocardiogram Report Interpretation Summary Left ventricular systolic function is normal without focal wall motion abnormalities. The ejection fraction is estimated to be 60-65%. LVEF has not changed since priro study. Left ventricular wall thickness is mild-moderately increased. The right ventricle is at the upper limits of normal in size. The right ventricular systolic function is normal. Right ventricular systolic pressure is estimated to be 20 mmHg plus the clinically estimated CVP which cannot be estimated on this exam. The left atrium is severely dilated. The right atrium is severely dilated. There is mild mitral regurgitation. There is no other significant valvular heart disease. The aortic root is mildly dilated. The ascending aorta is mildly enlarged. The aortic arch is mildly enlarged. Assessment & Plan is a 76-year-old male with past medical history of hypertension, PTSD, depression, pacemaker placement and history of pneumonia admitted for shortness of breath and cough concern for pneumonia. Hospital day 6. 1. Acute on chronic respiratory failure with exacerbation of COPD and hypoxia. Present on admission. Improved - On presentation patient states this is secondary to pneumonia as he has had significant history of same - Patient is not on home O2, was initially requiring O2 nasal cannula to maintain saturation - Currently saturating in the low 90s on room air ir - Hold Lasix secondary to #5 - Prednisone 40 mg by mouth daily, continue taper - DuoNeb's when necessary - Levofloxacin discontinued, no clinical indication bacterial pneumonia - Respiratory PCR positive for RSV - All other appropriate cultures and serologies negative to date 2. Atrial fibrillation with rapid ventricular response. Not present on admission. Improving - Etiology unknown, possibly secondary to #3, patient believes secondary to anxiety as in #4 - Cardizem drip discontinued, transitioned to oral diltiazem 240 mg daily - overnight telemetry showed improvement in rate control - Metoprolol XL 25 mg twice a day - Initial troponin slightly elevated 0.013, repeat troponin negative 2 - Consider cardiology consultation if rate control not achieved 3. Suspected congestive heart failure. Present on admission. Ongoing - Echo 10/22/2014 showed EF 60/65% - Repeat echo showed EF 6065%, LVEF not changed. Normal RV function, severely dilated left and right atrium - Hold Lasix secondary to #5 4. PTSD with anxiety and depression. Present on admission. Ongoing - Just completed 2 week stay at [facility] for same - Stop Lorazepam - Stop Seroquel, per [place] records patient does not respond well to this medication - Continue venlafaxine 225 mg daily - Continue home trazodone 5 mg at bedtime - Continue with machine filler shredder (sitter) when necessary - Per [place] medication records: - Started citalopram 10 mg daily -Effexor discontinued - Started gabapentin 300 mg by mouth 3 times a day - Continue Prazosin 2 mg by mouth at bedtime - Per admit med rec: - Continued clonazepam 1 mg by mouth twice a day when necessary for anxiety - Psychiatric consult pending, recommendations will be greatly appreciated 5. GILMAR. Present on admission. Ongoing - Nephrology consulted, continue to follow patient -Creatinine has begun to trend back down -Renal US did not show a cause for renal insufficiency -Elizondo cath remains with good urine output, considering removal tomorrow or the next day -Hold Lasix 6. Chest pressure. Present on admission. Resolved - Possibly secondary to anxiety or A. fib as an #2 - Continue current medications as above - Patient continues to have no complaints of chest pain 7. History of obesity. Present on admission. Resolved - Patient had gastric bypass surgery and lost approximately 300 pounds - BMI 21.7 - Consider nutrition consult - Multivitamin therapy 8. Hyperglycemia. Present on admission. Ongoing - A1c 5.3 - Continue with diabetic diet 9. Hyponatremia. Not present on admission. Resolved - Most likely secondary to dilution - Continue to monitor 10. BPH. Present on admission. Ongoing - Home doxazosin and changed to prazosin as in #4 - Continue home tamsulosin # Disposition: Remain inpatient status for at least another day, patient has viral pneumonia. Successfully weaned off diltiazem drip, oral diltiazem increased for rate control. [facility] at this time. Refer to social work note GI Prophylaxis: H2 nivia VTE Prophylaxis: Sub-Q Heparin (Unfractionated) Resuscitation Status: CPR: Attempt Resuscitation Attending Statement The patient was seen and examined together with House Staff/Resident on 05/27/16 and I agree with the history, exam and plan as outlined in the note above. BRANDON SANCHEZ DO May 27, 2016 14:23 Tino Guy May 31, 2016 19:22
--- NOTE | 2016-05-27 15:48 | PCM.PNNEPH ---
Gabe Nice DO 05/27/16 1548: Subjective Date of Service May 27, 2016 Subjective Patient is currently unsure of where he is. The patient is aware that he is in a [place] but he believes he is [place] and does not know the date. The patient denies any abdominal pain at this time. Exam Vital Signs Vital Sign - Last Date Time Temp Pulse Resp B/P Pulse Ox O2 Delivery O2 Flow Rate FiO2 05/27/16 14:12 111 14 93 Room Air 05/27/16 09:28 37.0 05/26/16 20:52 3.00 Intake and Output 05/26/16 05/26/16 05/27/16 Cumulative From/Thru 15:00 23:00 07:00 05/21/16 03:44 - 05/27/16 06:22 Intake Total 1100 ml 100 ml 93654 ml Output Total 1200 ml 450 ml 8320 ml Balance -100 ml -350 ml 4375 ml Intake Oral 950 ml 100 ml 9398 ml IV Total 150 ml 3297 ml Output Urine Total 1200 ml 450 ml 8320 ml # Voids 4 # Bowel Movements 2 2 Exam General: Awake and alert laying in hospital bed in no apparent distress. Pleasant and cooperative demeanor, oriented only to person town and president. tinted eyeglasses in place Eyes: PERRLA, EOMI, anicteric sclera, noninjected conjunctiva HEENT: Normocephalic, atraumatic. External ears without defect. dry mucus membranes without central cyanosis or cobblestoning mucosa Neck: Supple with full range of motion. noted mild jugular venous distension. Cardiovascular: Regular rate and rhythm with no murmurs appreciated. Pulmonary: Upper anterior lung field expiratory wheezes bilaterally mild course breath sounds noted in the axillary bases bilaterally. Normal respiratory effort. No use of accessory muscles. Abdomen: Soft, nontender, nondistended. Extremities: pulses intact bilaterally at the radial and dorsalis pedis with no edema, cyanosis or clubbing appreciated Skin: Normal temperature, turgor, and texture Neurological: Cranial nerves grossly intact, without focal neurologic deficit Psychiatric: Calm cooperative and pleasant. Normal mood and affect Lab and Diagnostics Result Diagram: 05/27/16 0520 05/27/16 0520 Microbiology Urine Strep pneumo antigen negative Blood cultures pending Nasopharyngeal viral PCR pending X-Rays, CTs and MRIs X-RAY CHEST ONE VIEW, PORTABLE IMPRESSION: No acute cardiopulmonary findings. Dictated by: Mitra Marshall M.D. on 05/21/2016 at 7:16 X-RAY CHEST, TWO VIEWS IMPRESSION: No acute cardiopulmonary disease. Dictated by: Tiana Gary M.D. on 05/22/2016 at 11:43 X-RAY CHEST ONE VIEW, PORTABLE IMPRESSION: No acute cardiopulmonary disease. Dictated by: Tiana Gary M.D. on 05/24/2016 at 8:42 US RENAL SONOGRAM IMPRESSION: A post-renal cause is not identified for renal insufficiency. Echogenic bilateral kidneys, consistent with medical renal disease. Dictated by: Enoch Zhu M.D. on 05/25/2016 at 14:19 Cardiac Echo Impressions Echocardiogram Report Interpretation Summary Left ventricular systolic function is normal without focal wall motion abnormalities. The ejection fraction is estimated to be 60-65%. LVEF has not changed since priro study. Left ventricular wall thickness is mild-moderately increased. The right ventricle is at the upper limits of normal in size. The right ventricular systolic function is normal. Right ventricular systolic pressure is estimated to be 20 mmHg plus the clinically estimated CVP which cannot be estimated on this exam. The left atrium is severely dilated. The right atrium is severely dilated. There is mild mitral regurgitation. There is no other significant valvular heart disease. The aortic root is mildly dilated. The ascending aorta is mildly enlarged. The aortic arch is mildly enlarged. Plan Impression is a 76-year-old male with past medical history of hypertension, PTSD, depression, pacemaker placement and history of pneumonia admitted for shortness of breath and cough concern for pneumonia. 1. Acute kidney injury on chronic kidney disease. Present on admission. Ongoing 2. Suspected congestive heart failure. Present on admission. Ongoing 3. urinary retention with a history of BPH. Present on admission. Ongoing Plan: 1. Acute kidney injury ond chronic kidney disease. Present on admission. Ongoing -Creatinine trended up after admission creatinine 1.72 to 3.38 today - baseline creatine appears elevated around 1.3 or higher is is unclear currently the etiology of the kidney disease, this will need to be elucidated in the future -Likely a combination of poor renal perfusion with Afib with RVR and rapid reduction of blood pressure from rate control with diltiazem drip and rapid correction of hypervolemia with lasix therapy with systolic blood pressure dropping from 150s to 80s within approximately one day -NS discontinue to avoid fluid overload of CHF -Schaffer cath placed with 1 L urine drainage -Renal US shows no cause of obstruction -Hold Lasix -Changed Enoxaparin to Heparin SQ for DVT prophylaxis given poor creatinine clearance - Creatinine continues to improve slowly monitored daily 2. Suspected congestive heart failure. Present on admission. Ongoing - prior echo 10/22/2014 showed EF 60/65% - Repeat echo showed EF 60-65%, LVEF not changed. Normal RV function, severely dilated left and right atrium - Hold Lasix secondary to #1 - discontinue IV fluids to avoid fluid overload - Consider beta nivia therapy if necessary. 3. urinary retention with a history of BPH. Present on admission. Ongoing - Discontinue home doxazosin, start prazosin for added PTSD control - Continue home tamsulosin - bladder scan showed urinary retention and a reported 1000mL of urine with schaffer placed by primary team - renal US ordered without cause of obstruction identified, likely BPH Jose Valles MD 05/28/16 0956: Exam Exam Lab and Diagnostics Result Diagram: 05/27/16 0505/27/16 0520 Plan Impression Gabe Nice DO May 27, 2016 15:48 Jose Valles MD May 28, 2016 09:56 Abdomen: Soft, nontender, nondistended. Extremities: pulses intact bilaterally at the radial and dorsalis pedis with no edema, cyanosis or clubbing appreciated Lab and Diagnostics Result Diagram: 05/27/1651905/27/16519 Plan Impression 1. Acute kidney injury on chronic kidney disease. - secondary to prerenal azotemia (overdiuresis), possible ischemic ATN due to poor CO and urinary retention. 2. Afib with RVR. 3. Urinary retention with a history of BPH. 4. HTN with hypertensive nephrosclerosis. Plan: start NS 80 ml/hr. adjust meds per eGFR. avoid nephrotoxin. maintain BP, MAP > 65 mmHg. Gabe Nice DO May 27, 2016 15:48 Jose Valles MD May 28, 2016 09:56
--- NOTE | 2016-05-27 18:04 | NUR ---
Code Lane/Mentation Upon beginning of shift during nurse report Pt. became uncooperative and aggressive and a code hnag was called. MD ordered IV push 1mg ativan once and was administered at ~0730. Pt. was on soft restraints on his lower and upper extremity bilaterally. At ~0900 MD ordered to DC soft restraints due to Pt. being more cooperative. Pt. became agitated again this afternoon and MD was made aware and MD ordered clonazepam 1mg PRN for anxiety. After a couple of minutes and redirecting Pt. agreed to take his clonazepam as long as we left him alone. At this time Pt. is more cooperative with care and appears more relaxed. MD made it clear to not give ativan PO or IV, no more ativan.
[2016-05-28] VITALS (9 sets, daily range): BP systolic 82–114; BP diastolic 53–81; PULSE 80–117; RESP 16–26; O2SAT 92–94
[2016-05-28 02:50] LABS: BASOPHILS % (AUTO) 0.1 % (0-3); EOSINOPHILS % (AUTO) 0 % (0-5); MONOCYTES % (AUTO) 4.6 % (4-12); Mean Corpuscular Hemoglobin 27.7 pg (27.0-35.0); NEUTROPHILS % (AUTO) 89.9 % (40-74); Platelet Count 372 bil/L (150-400)
--- NOTE | 2016-05-28 05:36 | NUR ---
Behavior Patient sleeping throughout most of shift. Arousable to voice and cooperates with care. Woke up shortly after midnight and asked for something to eat; offered to share his snacks with caregivers, then went back to sleep afterwards. Says "thank you" every time a care task is performed. Continues to be oriented to self only, but accepts that he is in the hospital when reminded. Sitter in place. Continue to monitor.
[2016-05-28] MEDS: Polyethylene Glycol (PEG) 17 Gm Powder PO SCH (08:30)
[2016-05-28] MEDS ORDERED: predniSONE 20 mg Tablet PO SCH (08:30)
[2016-05-28] MEDS: Albuterol-Ipratropium 3 mL Inhalation Solution NEB SCH ×4 (08:34→23:00)
[2016-05-28] MEDS: Diltiazem CD 240 mg ER24 Capsule PO SCH (09:10)
[2016-05-28] MEDS: predniSONE 20 mg Tablet PO SCH (09:12)
[2016-05-28] MEDS: Heparin 5,000 Unit/mL Inj SUBQ SCH ×2 (09:17→19:55)
[2016-05-28] MEDS: 0.9% Sodium Chloride 1,000 ML IV SCH ×2 (09:25→22:04)
--- NOTE | 2016-05-28 10:01 | PCM.PNNEPH ---
Subjective Date of Service May 28, 2016 Subjective c/o pain on the left side of the body, reports having anxiety attack. no CP/SOB. labile BP, lowest BP was 82/53. Exam Vital Signs Vital Sign - Last Date Time Temp Pulse Resp B/P Pulse Ox O2 Delivery O2 Flow Rate FiO2 05/28/16 09:01 36.3 110 26 113/61 94 Room Air 05/26/16 20:52 3.00 Intake and Output 05/27/16 05/27/16 05/28/16 Cumulative From/Thru 15:00 23:00 07:00 05/21/16 03:44 - 05/28/16 06:16 Intake Total 800 ml 1030 ml 39974 ml Output Total 900 ml 400 ml 9620 ml Balance -100 ml 630 ml 4905 ml Intake Oral 800 ml 1000 ml 87869 ml IV Total 30 ml 3327 ml Output Urine Total 900 ml 400 ml 9620 ml # Voids 4 # Bowel Movements 0 2 4 Exam General: AAOx3, anxious. Eyes: PERRLA, EOMI, anicteric sclera, noninjected conjunctiva HEENT: Normocephalic, atraumatic. External ears without defect. dry mucus membranes without central cyanosis or cobblestoning mucosa Neck: Supple with full range of motion. noted mild jugular venous distension. Cardiovascular: irregular rhythm. Pulmonary: coarse crackles B/L, expiratory wheezing note. Abdomen: Soft, nontender, nondistended. Extremities: pulses intact bilaterally at the radial and dorsalis pedis with no edema, cyanosis or clubbing appreciated Lab and Diagnostics Result Diagram: 05/28/16 0235 05/28/16 0235 Microbiology Urine Strep pneumo antigen negative Blood cultures pending Nasopharyngeal viral PCR pending X-Rays, CTs and MRIs X-RAY CHEST ONE VIEW, PORTABLE IMPRESSION: No acute cardiopulmonary findings. Dictated by: Mitra Marshall M.D. on 05/21/2016 at 7:16 X-RAY CHEST, TWO VIEWS IMPRESSION: No acute cardiopulmonary disease. Dictated by: Tiana Gary M.D. on 05/22/2016 at 11:43 X-RAY CHEST ONE VIEW, PORTABLE IMPRESSION: No acute cardiopulmonary disease. Dictated by: Tiana Gary M.D. on 05/24/2016 at 8:42 RENAL SONOGRAM IMPRESSION: A post-renal cause is not identified for renal insufficiency. Echogenic bilateral kidneys, consistent with medical renal disease. Dictated by: Enoch Zhu M.D. on 05/25/2016 at 14:19 Cardiac Echo Impressions Echocardiogram Report Interpretation Summary Left ventricular systolic function is normal without focal wall motion abnormalities. The ejection fraction is estimated to be 60-65%. LVEF has not changed since priro study. Left ventricular wall thickness is mild-moderately increased. The right ventricle is at the upper limits of normal in size. The right ventricular systolic function is normal. Right ventricular systolic pressure is estimated to be 20 mmHg plus the clinically estimated CVP which cannot be estimated on this exam. The left atrium is severely dilated. The right atrium is severely dilated. There is mild mitral regurgitation. There is no other significant valvular heart disease. The aortic root is mildly dilated. The ascending aorta is mildly enlarged. The aortic arch is mildly enlarged. Plan Impression 1. Acute kidney injury on chronic kidney disease. - secondary to prerenal azotemia (overdiuresis), possible ischemic ATN due to poor CO and urinary retention. 2. Afib with RVR. 3. Urinary retention with a history of BPH. 4. HTN with hypertensive nephrosclerosis. Plan: Start NS 80 ml/hr. Avoid nephrotoxins, adjust meds per eGFR. Maintain MAP > 65 mmHg. Jsoe Valles MD May 28, 2016 10:00
[2016-05-28] MEDS: Haloperidol 5 mg/mL Inj IVPUSH PRN ×2 (13:56→19:55)
--- NOTE | 2016-05-28 14:37 | CONS ---
[address] [address] CONSULTATION REPORT PATIENT: JAYLEN LOPEZ : 1940 MR#: [id number] ADMIT: 05/21/2016 JOB ID: [id number] DATE OF SERVICE: 05/28/2016 IDENTIFICATION OF PATIENT: The patient is a 76-year-old male seen at request of Dr. Guy due to altered mental status. The patient reportedly has extensive history of PTSD and significant confusion and disorientation. Evidently, last evening, per nursing notes, the patient did require restraint due to combative behaviors. CHIEF COMPLAINT: "I have done a lot of bad things, I can't forgive myself." HISTORY OF PRESENT ILLNESS: As stated above, the patient reportedly was seen at the request of Dr. Guy and hospitalist team due to a significant difficulties with agitation requiring significant Code Lane, forced medications and four-point restraints. The patient most recently was discharged from the [facility] within the past two weeks and has an extensive history of interventions through the [place] medical system. The patient reported to myself that he has spent greater than one year at [facility] in the past for treatment of PTSD. He also spent one year in the [facility] in another residential treatment facility. He reports extensive history of combat flashbacks, difficulties with intrusive nightmares. Most recently, the patient had been initiated on doses of Seroquel, but evidently per [facility] records, patient does not respond well in documentation through the hospitalist team. He reportedly had received greater than 12 mg of Ativan within the past [address] Rodgers was to discontinue p.r.n. usage of Ativan, discontinuation of Effexor, with continuation of doses of Klonopin. In meeting with myself, the patient openly identified significant difficulties with intrusive flashbacks, nightmares. He indicated that he has been tried on so many different medications throughout the years. He reportedly is maintained on prazosin 2 mg q.h.s. and was recently initiated on gabapentin 300 mg t.i.d. He was also initiated on Celexa 10 mg daily at the recommendations of Dr. Rodgers. In reviewing his current status, the patient openly admitted to significant difficulties with confusion, disorientation. He had difficulties with place, time, and situation. He reportedly has an extensive history of gastric bypass, hyperglycemia, hyponatremia, and kidney difficulties. PAST MEDICAL HISTORY: Deferred to the hospitalist team. PAST PSYCHIATRIC HISTORY: Substantial for the above information. SOCIAL HISTORY: Currently patient lives alone independently. 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 The patient reportedly has been clean and sober since 1983. He has been several times, per his own report. He has no contact with his children. He admits to significant combat exposure to trauma and admits to daily flashbacks, nightmare activity. FAMILY HISTORY: Deferred. DEVELOPMENT HISTORY: Deferred. MENTAL STATUS EXAM: General appearance: The patient is quite confused. He has had significant latency of speech throughout. Appears fairly anxious. His speech is noted with paucity. His mood is highly anxious. His affect is congruent to mood. His thought process shows evidence of some racing thoughts, some loose and disorganized presentation. Thought content: He denied any evidence of current suicidal ideation, intent, or plan. He admitted to difficulties with flashbacks and visual illusions. He was alert, orientation often in all quadrants. His attention and concentration are poor. Insight and judgment are poor. IMPRESSIONS: Rogers I. 1. Delirium, not otherwise specified. 2. Posttraumatic stress disorder, chronic. 3. 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 4. Generalized anxiety disorder. 5. Alcohol use disorder, in remission. Rogers II. Deferred. Rogers III. Defer to medical team. Rogers IV. Stressors are noted for significant trauma exposure. Limited social support system. Rogers V. Global Assessment of Functioning current 25. PLAN: 1. Recommendations for discontinuation of Klonopin due to possible disinhibition with combined previous usage of Ativan. 2. Recommendations for continuation of Celexa 10 mg q.a.m. 3. Introduction of some melatonin 5 mg q.h.s. for sleep and possible assistance in dealing with patient's factors of PTSD. 4. Continuation of prazosin with further titration to follow. 5. I do support discontinuation of Seroquel based on the patient's previous history. 6. If the patient does show significant further elevation in aggression, recommendations would be to utilize p.r.n. doses of Haldol IV 2 mg q.2 h. 7. I will continue to check in on the patient periodically to monitor his ongoing status. cc: Rafiq Baker, DO MTDD
--- NOTE | 2016-05-28 16:14 | PCM.PNMED ---
Subjective Date of Service May 28, 2016 Subjective Denies any new issues/complaints Exam Vital Signs Vital Sign - Last Date Time Temp Pulse Resp B/P Pulse Ox O2 Delivery O2 Flow Rate FiO2 05/28/16 14:30 86 21 93 Room Air 05/28/16 13:21 36.4 112/80 05/26/16 20:52 3.00 Intake and Output 05/27/16 05/27/16 05/28/16 Cumulative From/Thru 15:00 23:00 07:00 05/21/16 03:44 - 05/28/16 06:16 Intake Total 800 ml 1030 ml 16061 ml Output Total 900 ml 400 ml 9620 ml Balance -100 ml 630 ml 4905 ml Intake Oral 800 ml 1000 ml 10876 ml IV Total 30 ml 3327 ml Output Urine Total 900 ml 400 ml 9620 ml # Voids 4 # Bowel Movements 0 2 4 General: Alert, Cooperative, No Acute Distress, Other (oriented to place and time only) Head: Normal Eyes: Scleral Anicteric Nose: Mucous Membr Moist/[place] Mouth: Mucous Membr Moist/[place] Neck: Supple Chest & Lungs: Chest Wall Normal, Coarse breath sounds (bilat), Expiratory wheezes (bilat) Cardiovascular: Regular Rate/Rhythm Abdomen: Non-tender, Non-distended, Normoactive bowel tones, Soft Extremities: No cyanosis/clubbing/edma bilat Neurological: Grossly Neurologically Intact, Normal Speech IVs and Medications Medications Reviewed: Medications were reviewed in detail Lab and Diagnostics Result Diagram: 05/28/165 05/28/16 0235 Microbiology Urine Strep pneumo antigen negative Blood cultures pending Nasopharyngeal viral PCR pending X-Rays, CTs and MRIs X-RAY CHEST ONE VIEW, PORTABLE IMPRESSION: No acute cardiopulmonary findings. Dictated by: Mitra Marshall M.D. on 05/21/2016 at 7:16 X-RAY CHEST, TWO VIEWS IMPRESSION: No acute cardiopulmonary disease. Dictated by: Tiana Gary M.D. on 05/22/2016 at 11:43 X-RAY CHEST ONE VIEW, PORTABLE IMPRESSION: No acute cardiopulmonary disease. Dictated by: Tiana Gary M.D. on 05/24/2016 at 8:42 RENAL SONOGRAM IMPRESSION: A post-renal cause is not identified for renal insufficiency. Echogenic bilateral kidneys, consistent with medical renal disease. Dictated by: Enoch Zhu M.D. on 05/25/2016 at 14:19 Cardiac Echo Impressions Echocardiogram Report Interpretation Summary Left ventricular systolic function is normal without focal wall motion abnormalities. The ejection fraction is estimated to be 60-65%. LVEF has not changed since priro study. Left ventricular wall thickness is mild-moderately increased. The right ventricle is at the upper limits of normal in size. The right ventricular systolic function is normal. Right ventricular systolic pressure is estimated to be 20 mmHg plus the clinically estimated CVP which cannot be estimated on this exam. The left atrium is severely dilated. The right atrium is severely dilated. There is mild mitral regurgitation. There is no other significant valvular heart disease. The aortic root is mildly dilated. The ascending aorta is mildly enlarged. The aortic arch is mildly enlarged. Assessment & Plan 76-year-old male with past medical history of hypertension, PTSD, depression, pacemaker placement and history of pneumonia admitted for shortness of breath and cough concern for pneumonia. 1. Acute on chronic respiratory failure with exacerbation of COPD and hypoxia. Present on admission. Improving - Patient is not on home O2, was initially requiring O2 nasal cannula to maintain saturation - Hold Lasix secondary to #5 - Continue with Prednisone taper (down to 30mg daily at this time) - DuoNeb's when necessary - Levofloxacin discontinued, no clinical indication bacterial infection - Respiratory PCR positive for RSV 2. Atrial fibrillation with rapid ventricular response. Not present on admission. Improved - Etiology unknown, possibly secondary to #1 and 3 - Cardizem drip discontinued, transitioned to oral diltiazem 240 mg daily - overnight telemetry showed improvement in rate control - Metoprolol XL 25 mg twice a day - Initial troponin slightly elevated 0.013, repeat troponin negative 2 3. Suspected acute diastolic congestive heart failure. Present on admission. Improved - Echo showed EF 60-65%, LVEF not changed. Normal RV function, severely dilated left and right atrium - Hold Lasix secondary to #5 4. PTSD with anxiety and depression. Present on admission. Ongoing - Just completed 2 week stay at [facility] in [place] for same - Appreciate psychiatry consult. will followup with recommendations: - Recommendations for discontinuation of Klonopin due to possible disinhibition with combined previous usage of Ativan. - Recommendations for continuation of Celexa 10 mg q.a.m. - Introduction of some melatonin 5 mg q.h.s. for sleep and possible assistance in dealing with patient's factors of PTSD. - Continuation of prazosin with further titration to follow. - Continue to hold Seroquel based on the patient's previous history. - If the patient does show significant further elevation in aggression, recommendations would be to utilize p.r.n. doses of Haldol IV 2 mg q.2 h 5. GILMAR. Present on admission. Ongoing - Renal US did not show a cause for renal insufficiency - Elizondo cath remains with good urine output, considering removal tomorrow or the next day - Appreciate Nephrology consult. Will followup with recommendations - Gentle IV NS and followup 6. Chest pressure. Present on admission. Resolved - Possibly secondary to anxiety or A. fib as an #2 - Continue current medications as above 7. History of gastric bypass surgery and lost approximately 300 pounds. Stable 8. Hyperglycemia. Present on admission. - A1c 5.3 - Continue with diabetic diet 9. Hyponatremia. Not present on admission. Resolved - Continue to monitor 10. BPH. Present on admission. Ongoing - Home doxazosin and changed to prazosin as in #4 - Continue home tamsulosin Disposition: 2-3 days pending improved mental, respiratory, and renal functions. GI Prophylaxis: H2 nivia VTE Prophylaxis: Sub-Q Heparin (Unfractionated) Resuscitation Status: CPR: Attempt Resuscitation EjjoselinadelitaCaridadTino May 28, 2016 16:14 # Disposition: Remain inpatient status for at least another day, patient has viral pneumonia. Successfully weaned off diltiazem drip, oral diltiazem increased for rate control. [place] will not take patient for psychiatric needs at this time. Refer to social work note GI Prophylaxis: H2 nivia VTE Prophylaxis: Sub-Q Heparin (Unfractionated) Resuscitation Status: CPR: Attempt Resuscitation Tino Guy May 28, 2016 16:14 GI Prophylaxis: H2 nivia VTE Prophylaxis: Sub-Q Heparin (Unfractionated) Resuscitation Status: CPR: Attempt Resuscitation Tino Guy May 28, 2016 16:14
--- NOTE | 2016-05-28 18:21 | NUR ---
Anxiety Pt. states having high anxiety this morning and was requesting clonazepam, I gave medication as ordered and it seemed to have helped. Later this afternoon Pts. clonazepam was DC'D by and replaced with haldol PRN 2mg IV push. Pt. did get agitated and was getting slightly combative. I administered haldol as ordered and it seemed to have helped Pt. calm down. Pt. at this time is pleasant and cooperative.
--- NOTE | 2016-05-28 20:43 | NUR ---
Per RN to withhold neb treatment due to patient sleeping. Patient is slightly decreased in no distress resting comfortably
[2016-05-29] VITALS (15 sets, daily range): BP systolic 82–113; BP diastolic 50–71; PULSE 64–97; RESP 14–22; O2SAT 89–95
[2016-05-29] MEDS: Haloperidol 5 mg/mL Inj IVPUSH PRN ×4 (01:07→23:52)
--- NOTE | 2016-05-29 01:56 | NUR ---
Anxiety Patient awake at 0100, states he has been having "terrible nightmares" and that he is "hearing voices and having racing thoughts." PRN haldol given. Patient stayed up and had some snacks, then noted to be asleep at 0155. Continue to monitor. Addendum: 05/29/16 at 0435 by TREV CAMPBELL RN Patient awake again at 0425 with nightmares. Spilled water on blankets; bed change and fresh gown. RT to bedside for breathing treatment.
[2016-05-29 03:42] LABS: Magnesium 2.2 mg/dL (1.6-2.6); Phosphorus 6.3 mg/dL (2.5-4.9)
[2016-05-29] MEDS: Albuterol-Ipratropium 3 mL Inhalation Solution NEB SCH ×4 (04:26→23:51)
[2016-05-29] MEDS: Diltiazem CD 240 mg ER24 Capsule PO SCH (07:37)
[2016-05-29] MEDS: predniSONE 20 mg Tablet PO SCH (07:38)
[2016-05-29] MEDS: Polyethylene Glycol (PEG) 17 Gm Powder PO SCH (07:42)
[2016-05-29] MEDS: Heparin 5,000 Unit/mL Inj SUBQ SCH ×2 (07:42→19:47)
[2016-05-29] MEDS: 0.9% Sodium Chloride 1,000 ML IV SCH ×3 (07:45→21:00)
--- NOTE | 2016-05-29 12:29 | PCM.PNNEPH ---
Subjective Date of Service May 29, 2016 Subjective (+) anxiety attack last night, hearing voices. hard of hearing. no F/C/N/V. no CP/SOB. good UOP, serum cr trends. Exam Vital Signs Vital Sign - Last Date Time Temp Pulse Resp B/P Pulse Ox O2 Delivery O2 Flow Rate FiO2 05/29/16 11:02 70 05/29/16 07:29 36.5 22 108/69 95 Room Air 05/26/16 20:52 3.00 Intake and Output 05/28/16 05/28/16 05/29/16 Cumulative From/Thru 15:00 23:00 07:00 05/21/16 03:44 - 05/29/16 05:51 Intake Total 650 ml 2202 ml 19434 ml Output Total 800 ml 450 ml 00051 ml Balance -150 ml 1752 ml 6507 ml Intake Oral 650 ml 600 ml 57900 ml IV Total 1602 ml 4929 ml Output Urine Total 800 ml 450 ml 11250 ml # Voids 4 # Bowel Movements 4 Exam General: AAOx3, anxious. Hard of hearing. Eyes: PERRLA, EOMI, anicteric sclera, noninjected conjunctiva HEENT: Normocephalic, atraumatic. External ears without defect. dry mucus membranes. Neck: Supple with full range of motion. Cardiovascular: irregular rhythm. Pulmonary: coarse crackles B/L, expiratory wheezing noted. Abdomen: Soft, nontender, nondistended. Extremities: no edema, cyanosis, no rash. : Schaffer cath in place, yellowish urine. Lab and Diagnostics Result Diagram: 05/28/16 0235 05/29/16 0214 Microbiology Urine Strep pneumo antigen negative Blood cultures pending Nasopharyngeal viral PCR pending X-Rays, CTs and MRIs X-RAY CHEST ONE VIEW, PORTABLE IMPRESSION: No acute cardiopulmonary findings. Dictated by: Mitra Marshall M.D. on 05/21/2016 at 7:16 X-RAY CHEST, TWO VIEWS IMPRESSION: No acute cardiopulmonary disease. Dictated by: Tiana Gary M.D. on 05/22/2016 at 11:43 X-RAY CHEST ONE VIEW, PORTABLE IMPRESSION: No acute cardiopulmonary disease. Dictated by: Tiana Gary M.D. on 05/24/2016 at 8:42 RENAL SONOGRAM IMPRESSION: A post-renal cause is not identified for renal insufficiency. Echogenic bilateral kidneys, consistent with medical renal disease. Dictated by: Enoch Zhu M.D. on 05/25/2016 at 14:19 Cardiac Echo Impressions Echocardiogram Report Interpretation Summary Left ventricular systolic function is normal without focal wall motion abnormalities. The ejection fraction is estimated to be 60-65%. LVEF has not changed since priro study. Left ventricular wall thickness is mild-moderately increased. The right ventricle is at the upper limits of normal in size. The right ventricular systolic function is normal. Right ventricular systolic pressure is estimated to be 20 mmHg plus the clinically estimated CVP which cannot be estimated on this exam. The left atrium is severely dilated. The right atrium is severely dilated. There is mild mitral regurgitation. There is no other significant valvular heart disease. The aortic root is mildly dilated. The ascending aorta is mildly enlarged. The aortic arch is mildly enlarged. Plan Impression 1. Acute kidney injury on chronic kidney disease. - secondary to prerenal azotemia (overdiuresis), possible ischemic ATN due to poor CO and urinary retention. 2. Afib with RVR. 3. Urinary retention with a history of BPH. 4. HTN with hypertensive nephrosclerosis. Plan: D/c IVF when the current bag is over. d/c schafefr in am. check PVR within 6 hr after schaffer cath removed. start phosphate binders. Jose Valles MD May 29, 2016 12:29
[2016-05-29] MEDS ORDERED: 0.9% Sodium Chloride 500 ML IV ONE (14:10)
--- NOTE | 2016-05-29 15:10 | PCM.PNMED ---
Subjective Date of Service May 29, 2016 Subjective Denies any new issues/complaints at this time but says had a "rough night". Per nursing report patient was agitated last night and received Haldol Exam Vital Signs Vital Sign - Last Date Time Temp Pulse Resp B/P Pulse Ox O2 Delivery O2 Flow Rate FiO2 05/29/16 12:49 36.6 67 14 82/55 92 Room Air 05/26/16 20:52 3.00 Intake and Output 05/28/16 05/28/16 05/29/16 Cumulative From/Thru 15:00 23:00 07:00 05/21/16 03:44 - 05/29/16 05:51 Intake Total 650 ml 2202 ml 76531 ml Output Total 800 ml 450 ml 62850 ml Balance -150 ml 1752 ml 6507 ml Intake Oral 650 ml 600 ml 89200 ml IV Total 1602 ml 4929 ml Output Urine Total 800 ml 450 ml 49334 ml # Voids 4 # Bowel Movements 4 Exam General: Alert, Cooperative, No Acute Distress, Other (oriented to place and time only) Head: Normal Eyes: Scleral Anicteric Nose: Mucous Membr Moist/[place] Mouth: Mucous Membr Moist/[place] Neck: Supple Chest & Lungs: Chest Wall Normal, Coarse breath sounds (bilat), Expiratory wheezes (bilat) Cardiovascular: Regular Rate/Rhythm Abdomen: Non-tender, Non-distended, Normoactive bowel tones, Soft Extremities: No cyanosis/clubbing/edema bilat Neurological: Grossly Neurologically Intact, Normal Speech IVs and Medications Medications Reviewed: Medications were reviewed in detail Lab and Diagnostics Result Diagram: 05/28/16 0235 05/29/16 0214 Microbiology Urine Strep pneumo antigen negative Blood cultures pending Nasopharyngeal viral PCR pending X-Rays, CTs and MRIs X-RAY CHEST ONE VIEW, PORTABLE IMPRESSION: No acute cardiopulmonary findings. Dictated by: Mitra Marshall M.D. on 05/21/2016 at 7:16 X-RAY CHEST, TWO VIEWS IMPRESSION: No acute cardiopulmonary disease. Dictated by: Tiana Gary M.D. on 05/22/2016 at 11:43 X-RAY CHEST ONE VIEW, PORTABLE IMPRESSION: No acute cardiopulmonary disease. Dictated by: Tiana Gary M.D. on 05/24/2016 at 8:42 RENAL SONOGRAM IMPRESSION: A post-renal cause is not identified for renal insufficiency. Echogenic bilateral kidneys, consistent with medical renal disease. Dictated by: Enoch Zhu M.D. on 05/25/2016 at 14:19 Cardiac Echo Impressions Echocardiogram Report Interpretation Summary Left ventricular systolic function is normal without focal wall motion abnormalities. The ejection fraction is estimated to be 60-65%. LVEF has not changed since priro study. Left ventricular wall thickness is mild-moderately increased. The right ventricle is at the upper limits of normal in size. The right ventricular systolic function is normal. Right ventricular systolic pressure is estimated to be 20 mmHg plus the clinically estimated CVP which cannot be estimated on this exam. The left atrium is severely dilated. The right atrium is severely dilated. There is mild mitral regurgitation. There is no other significant valvular heart disease. The aortic root is mildly dilated. The ascending aorta is mildly enlarged. The aortic arch is mildly enlarged. Assessment & Plan 76-year-old male with past medical history of hypertension, PTSD, depression, pacemaker placement and history of pneumonia admitted for shortness of breath and cough concern for pneumonia. 1. Acute on chronic respiratory failure with exacerbation of COPD and hypoxia. Present on admission. Improving - Patient is not on home O2, was initially requiring O2 nasal cannula to maintain saturation - Hold Lasix secondary to #5 - Continue with Prednisone taper (down to 20mg daily starting on 05/30) - DuoNeb's when necessary - Levofloxacin discontinued, no clinical indication bacterial infection - Respiratory PCR positive for RSV 2. Atrial fibrillation with rapid ventricular response. Not present on admission. Improved - Etiology unknown, possibly secondary to #1 and 3 - Cardizem drip discontinued, transitioned to oral diltiazem 240 mg daily - overnight telemetry showed improvement in rate control - Metoprolol XL 25 mg twice a day - Initial troponin slightly elevated 0.013, repeat troponin negative 2 3. Suspected acute diastolic congestive heart failure. Present on admission. Improved - Echo showed EF 60-65%, LVEF not changed. Normal RV function, severely dilated left and right atrium - Hold Lasix secondary to #5 4. PTSD with anxiety and depression. Present on admission. Ongoing - Just completed 2 week stay at [facility] for same - Appreciate psychiatry consult. will followup with recommendations: - Recommendations for discontinuation of Klonopin due to possible disinhibition with combined previous usage of Ativan. - Recommendations for continuation of Celexa 10 mg q.a.m. - Introduction of some melatonin 5 mg q.h.s. for sleep and possible assistance in dealing with patient's factors of PTSD. - Continuation of prazosin with further titration to follow. - Continue to hold Seroquel based on the patient's previous history. - If the patient does show significant further elevation in aggression, recommendations would be to utilize p.r.n. doses of Haldol IV 2 mg q.2 h 5. GILMAR. Present on admission. Ongoing - Renal US did not show a cause for renal insufficiency - Elizondo cath remains with good urine output, considering removal tomorrow or the next day - Appreciate Nephrology consult. Will followup with recommendations - Gentle IV NS and followup 6. Chest pressure. Present on admission. Resolved - Possibly secondary to anxiety or A. fib as an #2 - Continue current medications as above 7. History of gastric bypass surgery and lost approximately 300 pounds. Stable 8. Hyperglycemia. Present on admission. - A1c 5.3 - Continue with diabetic diet 9. Hyponatremia. Not present on admission. Resolved - Continue to monitor 10. BPH. Present on admission. Ongoing - Home doxazosin and changed to prazosin as in #4 - Continue home tamsulosin Disposition: 1-2 days pending improved mental, respiratory, and renal functions. GI Prophylaxis: H2 nivia VTE Prophylaxis: Sub-Q Heparin (Unfractionated) Resuscitation Status: CPR: Attempt Resuscitation Tino Guy May 29, 2016 15:10
--- NOTE | 2016-05-29 18:03 | NUR ---
Anxiety/Hypotension/Respiratory Pt. states having high anxiety this afternoon and one dose of 2mg haldol IV push PRN was given. Pt. states anxiety decreasing. Pts. blood presser was hypotensive this afternoon and MD made aware. MD ordered 500mL bolus 0.9% NS over and hour and 100mL/hr for 10hr of 0.9% NS. Pts. blood pressure slowly increasing with last BP 98/60. Pt. began to c/o of his breathing becoming a little more difficult and feels "rattles" in his chest. MD was made aware and MD ordered to stop IV fluids. Will continue to monitor.
[2016-05-30] VITALS (14 sets, daily range): BP systolic 89–138; BP diastolic 56–67; PULSE 68–104; RESP 10–22; O2SAT 89–95
--- NOTE | 2016-05-30 00:02 | NUR ---
Anxiety Patient expressing multiple times to nursing staff that he is afraid of being discharged home alone. "I don't want to be discharged, I feel very bad, if they discharge me home I'm just going to get sick again." "It's going to end up back in my lungs." "I live alone and I'm afraid I can't take care of myself like this." "If I can't stay here, [facility] Reassured patient that his concerns would be shared with his care team. PRN haldol given for increased anxiety around midnight. Continue to monitor.
[2016-05-30] MEDS: 0.9% Sodium Chloride 1,000 ML IV SCH ×5 (01:10→22:00)
[2016-05-30] MEDS: Albuterol-Ipratropium 3 mL Inhalation Solution NEB SCH ×4 (05:58→23:41)
[2016-05-30] MEDS ORDERED: 0.9% Sodium Chloride 500 ML IV ONE (08:05)
[2016-05-30] MEDS: Haloperidol 5 mg/mL Inj IVPUSH PRN (08:08)
[2016-05-30] MEDS: predniSONE 20 mg Tablet PO SCH (09:59)
[2016-05-30] MEDS: Polyethylene Glycol (PEG) 17 Gm Powder PO SCH (10:00)
[2016-05-30] MEDS: Diltiazem CD 240 mg ER24 Capsule PO SCH (10:01)
[2016-05-30] MEDS: Heparin 5,000 Unit/mL Inj SUBQ SCH ×2 (10:02→20:43)
--- NOTE | 2016-05-30 11:15 | NUR ---
NUTRITION FOLLOW UP: ASSESS: 76 YO M admitted for COPD/CHF. Pt has history of PTSD and on occasion can be combative and experience increased agitation. Pt remains on a Heart healthy diet and due to GILMAR, nephrology has placed him on a 2g K restriction. PO intake continues to be variable but fair. Pt H&P, pt has history of ~300lb intentional wt loss due to gastric bypass surgery. PMHX: HTN, PTSD, depression, pacemaker, pneumonia, COPD, gastric bypass. LABS: Reviewed. Na 133, BUN 62, Cr 3.12, (05/29): 3.1 MEDS: Reviewed. Prednisone, Senna. GI: 2 BM 05/30. SKIN: Rogelio 16, no major issues CURRENT WT: 74.6 kg, BMI 23.6 kg/m2, Admit wt: 68.7 kg, IBW: 75kg DIET: Heart Healthy, 2g K restriction, PO 0-100% ESTIMATED NEEDS: GILMAR Calories: 2112-8906 kcal/day (25-30 kcal/kg BW) Protein: 40-55 g/day (0.6-0.8 g/kg BW) NUTRITION DIAGNOSIS: 1.) Altered nutrition related lab values related to GILMAR as evidence by need for 2gm K diet.---IMPROVING. 2.) Variable PO intake related at ams as evidence by PO intake varying from 0-75% and pt experiencing episodes of agitation.-PERSISTS. NUTRITION INTERVENTION: 1.) Continue current diet at this time. 2.) As pt's PO intake remains variable, will add Suplena nutrition shake on L tray as it is high in kcal, low in protein, and low in K+. MONITOR/EVALUATE: PO intake, labs, wt, POC, GI/nutrition status. Follow per moderate nutrition risk guidelines.
--- NOTE | 2016-05-30 13:46 | PCM.PNMED ---
Subjective Date of Service May 30, 2016 Subjective Overnight: Patient remained anxious and was given Haldol with good effect. Fluids were given for blood pressure support, then discontinued secondary to increased work of breathing. Today: Patient awake and alert lying in hospital bed in no apparent distress and appropriately interactive. Exam Vital Signs Vital Sign - Last Date Time Temp Pulse Resp B/P Pulse Ox O2 Delivery O2 Flow Rate FiO2 05/30/16 12:30 36.4 88 19 100/61 93 Room Air 05/30/16 11:28 3.00 Intake and Output 05/29/16 05/29/16 05/30/16 Cumulative From/Thru 15:00 23:00 07:00 05/21/16 03:44 - 05/30/16 06:35 Intake Total 1610 ml 330 ml 74259 ml Output Total 850 ml 200 ml 88581 ml Balance 760 ml 130 ml 7397 ml Intake Oral 355 ml 300 ml 12974 ml IV Total 1255 ml 30 ml 6214 ml Output Urine Total 850 ml 200 ml 23679 ml # Voids 4 # Bowel Movements 2 6 Exam General: Patient sleeping in bed during start of interview, arousable to voice at which point he is awake and alert and conversing appropriately though still has trouble answering some situational questions HEENT: Normocephalic, atraumatic. External ears without defect. Pupils equal, round, and reactive to light and accommodation. Eyeglasses in place hearing aids not in place Neck: Supple with full range of motion. No jugular venous distension. Cardiovascular: Regular rate with regular rhythm, no murmurs appreciated. Pulmonary: Upper anterior lung field expiratory wheezes bilaterally - audible without stethoscope. Normal respiratory effort. No use of accessory muscles. Abdomen: Soft, nontender, nondistended. Extremities: No edema appreciated Skin: Normal temperature, turgor, and texture Neurological: Cranial nerves grossly intact. Psychiatric: Calm and cooperative. Able to answer some questions such as name and place though cannot tell time date. A&O 2/4 IVs and Medications Medications Reviewed: Medications were reviewed in detail Lab and Diagnostics Result Diagram: 05/28/16 0235 05/30/16 0245 Microbiology Urine Strep pneumo antigen negative Blood cultures negative to date Nasopharyngeal PCR positive for RSV X-Rays, CTs and MRIs X-RAY CHEST ONE VIEW, PORTABLE IMPRESSION: No acute cardiopulmonary findings. Dictated by: Mitra Marshall M.D. on 05/21/2016 at 7:16 X-RAY CHEST, TWO VIEWS IMPRESSION: No acute cardiopulmonary disease. Dictated by: Tiana Gary M.D. on 05/22/2016 at 11:43 X-RAY CHEST ONE VIEW, PORTABLE IMPRESSION: No acute cardiopulmonary disease. Dictated by: Tiana Gary M.D. on 05/24/2016 at 8:42 US RENAL SONOGRAM IMPRESSION: A post-renal cause is not identified for renal insufficiency. Echogenic bilateral kidneys, consistent with medical renal disease. Dictated by: Enoch Zhu M.D. on 05/25/2016 at 14:19 Cardiac Echo Impressions Echocardiogram Report Interpretation Summary Left ventricular systolic function is normal without focal wall motion abnormalities. The ejection fraction is estimated to be 60-65%. LVEF has not changed since priro study. Left ventricular wall thickness is mild-moderately increased. The right ventricle is at the upper limits of normal in size. The right ventricular systolic function is normal. Right ventricular systolic pressure is estimated to be 20 mmHg plus the clinically estimated CVP which cannot be estimated on this exam. The left atrium is severely dilated. The right atrium is severely dilated. There is mild mitral regurgitation. There is no other significant valvular heart disease. The aortic root is mildly dilated. The ascending aorta is mildly enlarged. The aortic arch is mildly enlarged. Assessment & Plan 76-year-old male with past medical history of hypertension, PTSD, depression, pacemaker placement and history of pneumonia admitted for shortness of breath and cough concern for pneumonia. Hospital day 10 Acute on chronic respiratory failure with exacerbation of COPD and hypoxia. Present on admission. Improving - Patient is not on home O2, was initially requiring O2 nasal cannula to maintain saturation - Hold Lasix secondary to GILMAR - Continue with Prednisone taper (down to 20mg daily starting on 05/30) - DuoNeb's when necessary - Levofloxacin discontinued, no clinical indication bacterial infection - Respiratory PCR positive for RSV Atrial fibrillation with rapid ventricular response. Not present on admission. Improved - Etiology unknown, possibly secondary to COPD and CHF - Cardizem drip discontinued, transitioned to oral diltiazem 240 mg daily - remains rate controlled - Metoprolol XL 25 mg twice a day - stopped 05/30/2016 - Initial troponin slightly elevated 0.013, repeat troponin negative 2 Suspected acute diastolic congestive heart failure. Present on admission. Improved - Echo showed EF 60-65%, LVEF not changed. Normal RV function, severely dilated left and right atrium - Hold Lasix secondary to GILMAR PTSD with anxiety and depression. Present on admission. Ongoing - Recently completed 2 week stay at [facility] in [place] - Appreciate psychiatry consult. will followup with recommendations: - Recommendations for discontinuation of Klonopin due to possible disinhibition with combined previous usage of Ativan. - Recommendations for continuation of Celexa 10 mg q.a.m. - Introduction of some melatonin 5 mg q.h.s. for sleep and possible assistance in dealing with patient's factors of PTSD. - Continuation of prazosin with further titration to follow. - Continue to hold Seroquel based on the patient's previous history. - If the patient does show significant further elevation in aggression, recommendations would be to utilize p.r.n. doses of Haldol IV 2 mg q.2 h GILMAR. Present on admission. Ongoing - Renal US did not show a cause for renal insufficiency - Elizondo cath removed today awaiting thyroid response - Nephrology following - Gentle IV NS Chest pressure. Present on admission. Resolved - Possibly secondary to anxiety or A. fib - Continue current medications as above History of gastric bypass surgery and lost approximately 300 pounds. Stable - Continue to monitor Hyperglycemia. Present on admission. - A1c 5.3 - Continue with diabetic diet Hyponatremia. Not present on admission. Resolved - Continue to monitor BPH. Present on admission. Ongoing - Home doxazosin and changed to prazosin - Continue home tamsulosin Disposition: 1-2 days pending improved mental, respiratory, and renal functions. Patient amenable to a SNF placement. GI Prophylaxis: H2 nivia VTE Prophylaxis: Sub-Q Heparin (Unfractionated) Resuscitation Status: CPR: Attempt Resuscitation Attending Statement The patient was seen and examined together with Dr. Marx on 05/30/16 and I have added additional information to the note above. BRANDON MARX DO May 30, 2016 13:46 Nakia Kay DO May 31, 2016 13:23
--- NOTE | 2016-05-30 14:37 | PCM.PNNEPH ---
Subjective Date of Service May 30, 2016 Subjective The patient states that he is feeling better however the patient is concerned that he lives alone and is nervous he may deteriorate at home. The patient states that his appetite has improved. The patient notes some coarse breath and mild trouble with breathing. Exam Vital Signs Vital Sign - Last Date Time Temp Pulse Resp B/P Pulse Ox O2 Delivery O2 Flow Rate FiO2 05/30/16 12:30 36.4 88 19 100/61 93 Room Air 05/30/16 11:28 3.00 Intake and Output 05/29/16 05/29/16 05/30/16 Cumulative From/Thru 15:00 23:00 07:00 05/21/16 03:44 - 05/30/16 06:35 Intake Total 1610 ml 330 ml 19589 ml Output Total 850 ml 200 ml 09059 ml Balance 760 ml 130 ml 7397 ml Intake Oral 355 ml 300 ml 46793 ml IV Total 1255 ml 30 ml 6214 ml Output Urine Total 850 ml 200 ml 98592 ml # Voids 4 # Bowel Movements 2 6 Exam General: Awake and alert laying in hospital bed in no apparent distress. Pleasant and cooperative demeanor, oriented only to person town and president. tinted eyeglasses in place Eyes: PERRLA, EOMI, anicteric sclera, noninjected conjunctiva HEENT: Normocephalic, atraumatic. External ears without defect. dry mucus membranes without central cyanosis or cobblestoning mucosa Neck: Supple with full range of motion. noted mild jugular venous distension. Cardiovascular: Irregularly irregular rate and rhythm with no murmurs appreciated. Pulmonary: Moderate course breath sounds noted in the axillary bases bilaterally worse in the right with significant upper airway transmission no notable wheezing. Normal respiratory effort. No use of accessory muscles. Abdomen: Soft, nontender, nondistended. Extremities: pulses intact bilaterally at the radial and dorsalis pedis with no edema, cyanosis or clubbing appreciated Skin: Normal temperature, turgor, and texture Neurological: Cranial nerves grossly intact, without focal neurologic deficit Psychiatric: Calm cooperative and pleasant. Normal mood and affect Lab and Diagnostics Result Diagram: 05/28/16 0235 05/30/16 0245 Microbiology Urine Strep pneumo antigen negative Blood cultures negative to date Nasopharyngeal PCR positive for RSV X-Rays, CTs and MRIs X-RAY CHEST ONE VIEW, PORTABLE IMPRESSION: No acute cardiopulmonary findings. Dictated by: Mitra Marshall M.D. on 05/21/2016 at 7:16 X-RAY CHEST, TWO VIEWS IMPRESSION: No acute cardiopulmonary disease. Dictated by: Tiana Gary M.D. on 05/22/2016 at 11:43 X-RAY CHEST ONE VIEW, PORTABLE IMPRESSION: No acute cardiopulmonary disease. Dictated by: Tiana Gary M.D. on 05/24/2016 at 8:42 US RENAL SONOGRAM IMPRESSION: A post-renal cause is not identified for renal insufficiency. Echogenic bilateral kidneys, consistent with medical renal disease. Dictated by: Enoch Zhu M.D. on 05/25/2016 at 14:19 Cardiac Echo Impressions Echocardiogram Report Interpretation Summary Left ventricular systolic function is normal without focal wall motion abnormalities. The ejection fraction is estimated to be 60-65%. LVEF has not changed since priro study. Left ventricular wall thickness is mild-moderately increased. The right ventricle is at the upper limits of normal in size. The right ventricular systolic function is normal. Right ventricular systolic pressure is estimated to be 20 mmHg plus the clinically estimated CVP which cannot be estimated on this exam. The left atrium is severely dilated. The right atrium is severely dilated. There is mild mitral regurgitation. There is no other significant valvular heart disease. The aortic root is mildly dilated. The ascending aorta is mildly enlarged. The aortic arch is mildly enlarged. Plan Impression is a 76-year-old male with past medical history of hypertension, PTSD, depression, pacemaker placement and history of pneumonia admitted for shortness of breath and cough concern for pneumonia. 1. Acute kidney injury on chronic kidney disease. 2. Suspected congestive heart failure. 3. urinary retention with a history of BPH. Plan: 1. Acute kidney injury on chronic kidney disease. Present on admission. Ongoing - baseline creatine appears elevated around 1.3 or higher -Creatinine trended up after admission creatinine 1.72 to 3.38, this is likely due to a combination of prerenal azotemia secondary to overdiuresis as well as ischemic acute tubular necrosis due to low cardiac output as well as obstructive uropathy with increased postvoid residual volumes -Encourage oral fluids monitored daily -Mild bump in creatinine today likely secondary to mild hypotension on May 29 , patient was given a 500 mL normal saline fluid bolus May 30 -Initiated PhosLo 667 mg 3 times a day -Patient will need follow-up with nephrology as an outpatient and will likely have a higher baseline creatinine closer to the 1.7 than to the 1.3 2. urinary retention with a history of BPH. Present on admission. Ongoing - Discontinue home doxazosin, start prazosin for added PTSD control - Continue home tamsulosin - bladder scan showed urinary retention and a reported 1000mL of urine with schaffer placed by primary team - renal US ordered without cause of obstruction identified, likely BPH - Schaffer catheter removed May 30 and patient monitored for 6 hours with encouragement by nursing staff to micturate as well as with serial bladder scans before Schaffer replaced 3. Suspected congestive heart failure. Present on admission. Ongoing - prior echo 10/22/2014 showed EF 60/65% - Repeat echo showed EF 60-65%, LVEF not changed - Hold Lasix secondary to #1 - Primary team ordered normal saline 500 mL IV fluids to avoid fluid overload Gabe Nice DO May 30, 2016 14:36 schaffer placed by primary team - renal US ordered without cause of obstruction identified, likely BPH Gabe Nice DO May 30, 2016 14:36
--- NOTE | 2016-05-30 15:42 | NUR ---
Gave access and faxed facesheet to [facility] and [facility] per [employer]
--- NOTE | 2016-05-30 15:59 | NUR ---
Social Work Note: Continued Discharge Planning Data& Assessment: Per MD pt is getting closer to being medically ready for discharge. SW met with pt at bedside to re-engage regarding discharge planning. Pt is now agreeable to discharging to SNF for rehab and continued strengthening. Pt prefers to stay in [place] and does not have a preference for which facility, and will go to whichever SNF has a bed available for him. WILIAM updated [place] social work specialist Bautista ([phone]) who will try and contact his psychiatrist Janette Hooks who he is scheduled to see tomorrow and notify her that pt is hospitalized still. Pt denies any other needs. SW to continue to follow. Plan: Anticipated discharge to [facility] vs[facility] pending acceptance when medically ready. Pt denies any other needs. SW to continue to follow. NATALIE Hernadez
[2016-05-30] MEDS ORDERED: Albuterol 0.5% (5mg/mL) 20 mL Inhalation Solution NEB PRN (17:20)
[2016-05-30] MEDS ORDERED: Albuterol 2.5 mg/3 mL Inhalation Solution NEB PRN (17:27)
--- NOTE | 2016-05-30 18:35 | NUR ---
Bladder Scan Patient voided 100 mL per urinal. Post void bladder scan is 428 mL.
[2016-05-31] VITALS (10 sets, daily range): BP systolic 103–125; BP diastolic 48–86; PULSE 85–116; RESP 12–19; O2SAT 90–100
[2016-05-31 03:33] LABS: BASOPHILS % (AUTO) 0.1 % (0-3); EOSINOPHILS % (AUTO) 0 % (0-5); MONOCYTES % (AUTO) 6.6 % (4-12); Mean Corpuscular Hemoglobin 27.1 pg (27.0-35.0); Mean Corpuscular Volume 86.3 fL (81-100); NEUTROPHILS % (AUTO) 85.9 % (40-74); Platelet Count 353 bil/L (150-400)
[2016-05-31] MEDS: Albuterol-Ipratropium 3 mL Inhalation Solution NEB SCH ×4 (05:37→23:00)
--- NOTE | 2016-05-31 06:04 | NUR ---
NOC mentation / UOP a/o x 3, pleasant and cooperative. no increased behaviors, no hallucinations. mild anxiety, Trazadone and melatonin helpful for c/o sleeplessness. 1:1 listening support provided. voiding small amounts at begin of shift; bladder scan PVR >525. in/out cath 550cc @ 0230. reported need to urinate, and expressed relief after straight cath. 0600: bladder scan: >236mL. denies urinary sx.
--- NOTE | 2016-05-31 06:51 | NUR ---
respiratory Lung sounds continue to be wet, course crackles L>R. encourage cough and deep breathing. PC- creamy sputum.
[2016-05-31] MEDS: Diltiazem CD 240 mg ER24 Capsule PO SCH (08:51)
[2016-05-31] MEDS: predniSONE 20 mg Tablet PO SCH (08:51)
[2016-05-31] MEDS: Heparin 5,000 Unit/mL Inj SUBQ SCH ×2 (08:52→21:14)
[2016-05-31] MEDS: Polyethylene Glycol (PEG) 17 Gm Powder PO SCH (08:53)
[2016-05-31] MEDS: 0.9% Sodium Chloride 1,000 ML IV SCH (08:56)
--- NOTE | 2016-05-31 11:10 | PCM.PNMED ---
Subjective Date of Service May 31, 2016 Subjective Overnight: Patient reportedly pleasant cooperative throughout the night mild anxiety. Reported benefit with melatonin and trazodone. Remained in A. fib in the 80s to 90s with frequent PVCs. Today: Awake and alert program interactive, endorses left lower quadrant abdominal pain ecchymotic bruise over area where heparin injections were administered. No other complaints Exam Vital Signs Vital Sign - Last Date Time Temp Pulse Resp B/P Pulse Ox O2 Delivery O2 Flow Rate FiO2 05/31/16 10:32 106 05/31/16 10:19 Supplement Oxygen 05/31/16 08:48 36.4 14 123/74 100 1.00 Intake and Output 05/30/16 05/30/16 05/31/16 Cumulative From/Thru 15:00 23:00 07:00 05/21/16 03:44 - 05/31/16 06:09 Intake Total 270 ml 800 ml 31975 ml Output Total 100 ml 200 ml 1250 ml 66488 ml Balance -100 ml 70 ml -450 ml 6917 ml Intake Oral 12899 ml IV Total 20 ml 6234 ml TPN/PPN 250 ml 800 ml 1050 ml Output Urine Total 100 ml 200 ml 1250 ml 14270 ml # Voids 0 4 # Bowel Movements 6 Exam General: Patient awake and alert lying in bed appropriately interactive HEENT: Normocephalic, atraumatic. External ears without defect. Pupils equal, round, and reactive to light and accommodation. Eyeglasses in place hearing aids not in place Neck: Supple with full range of motion. No jugular venous distension. Cardiovascular: Regular rate with irregular irregular rhythm, no murmurs appreciated. Pulmonary: Upper anterior and posterior lung field expiratory wheezes bilaterally. Lung bases decreased air movement Normal respiratory effort. + rhonchi Abdomen: Soft, tender to palpation left lower quadrant, nondistended. No rigidity and no guarding. Extremities: No edema or clubbing appreciated Skin: Normal temperature, turgor, and texture Neurological: Cranial nerves grossly intact. Psychiatric: Calm and cooperative. IVs and Medications Medications Reviewed: Medications were reviewed in detail Lab and Diagnostics Result Diagram: 05/31/16 0302 05/31/16 0302 Microbiology Urine Strep pneumo antigen negative Blood cultures negative to date Nasopharyngeal PCR positive for RSV X-Rays, CTs and MRIs X-RAY CHEST ONE VIEW, PORTABLE IMPRESSION: No acute cardiopulmonary findings. Dictated by: Mitra Marshall M.D. on 05/21/2016 at 7:16 X-RAY CHEST, TWO VIEWS IMPRESSION: No acute cardiopulmonary disease. Dictated by: Tiana Gary M.D. on 05/22/2016 at 11:43 X-RAY CHEST ONE VIEW, PORTABLE IMPRESSION: No acute cardiopulmonary disease. Dictated by: Tiana Gary M.D. on 05/24/2016 at 8:42 US RENAL SONOGRAM IMPRESSION: A post-renal cause is not identified for renal insufficiency. Echogenic bilateral kidneys, consistent with medical renal disease. Dictated by: Enoch Zhu M.D. on 05/25/2016 at 14:19 Cardiac Echo Impressions Echocardiogram Report Interpretation Summary Left ventricular systolic function is normal without focal wall motion abnormalities. The ejection fraction is estimated to be 60-65%. LVEF has not changed since priro study. Left ventricular wall thickness is mild-moderately increased. The right ventricle is at the upper limits of normal in size. The right ventricular systolic function is normal. Right ventricular systolic pressure is estimated to be 20 mmHg plus the clinically estimated CVP which cannot be estimated on this exam. The left atrium is severely dilated. The right atrium is severely dilated. There is mild mitral regurgitation. There is no other significant valvular heart disease. The aortic root is mildly dilated. The ascending aorta is mildly enlarged. The aortic arch is mildly enlarged. Assessment & Plan 76-year-old male with past medical history of hypertension, PTSD, depression, pacemaker placement and history of pneumonia admitted for shortness of breath and cough concern for pneumonia. Hospital day 10 Acute on chronic respiratory failure with exacerbation of COPD and hypoxia. Present on admission. Improving - Patient is not on home O2, was initially requiring O2 nasal cannula to maintain saturation - Hold Lasix secondary to CAD - Continue with Prednisone taper (down to 10mg daily starting on 06/01) - DuoNeb's when necessary - Levofloxacin discontinued, no clinical indication bacterial infection - Respiratory PCR positive for RSV Pneumonia. Present on admission. Acute. Ongoing -Viral PCR showed respiratory syncopal virus -Continue with supportive treatment Atrial fibrillation with rapid ventricular response. Not present on admission. Improved - Etiology unknown, possibly secondary to respiratory failure and CHF - Cardizem drip discontinued, transitioned to oral diltiazem 240 mg daily - remains rate controlled - Metoprolol XL 25 mg twice a day - stopped 05/30/2016 - Initial troponin slightly elevated 0.013, repeat troponin negative 2 Suspected acute diastolic congestive heart failure. Present on admission. Improved - Echo showed EF 60-65%, LVEF not changed. Normal RV function, severely dilated left and right atrium - Hold Lasix PTSD with anxiety and depression. Present on admission. Ongoing - Just completed 2 week stay at [facility] for same - Appreciate psychiatry consult. will followup with recommendations: - Recommendations for discontinuation of Klonopin due to possible disinhibition with combined previous usage of Ativan. - Recommendations for continuation of Celexa 10 mg q.a.m. - Introduction of some melatonin 5 mg q.h.s. for sleep and possible assistance in dealing with patient's factors of PTSD. - Continuation of prazosin with further titration to follow. - Continue to hold Seroquel based on the patient's previous history. - If the patient does show significant further elevation in aggression, recommendations would be to utilize p.r.n. doses of Haldol IV 2 mg q.2 h Leukocytosis. Not present on admission. Every. Ongoing -Slightly secondary to stress reaction versus steroids -Consider concomitant bacterial infection -Calcitonin is mildly elevated 0.24 -Patient remains afebrile -Continue to monitor GILMAR. Present on admission. Ongoing - Renal U/S did not show a cause for renal insufficiency - Elizondo cath removed today - Nephrology following and recommend fluids for dehydration - Gentle IV NS Chest pressure. Present on admission. Resolved - Possibly secondary to anxiety or A. fib - Continue current medications as above History of gastric bypass surgery and lost approximately 300 pounds. Stable - Continue to monitor Hyperglycemia. Present on admission. - A1c 5.3 - Continue with diabetic diet Hyponatremia. Not present on admission. Resolved - Continue to monitor BPH. Present on admission. Ongoing - Home doxazosin and changed to prazosin as in #4 - Continue home tamsulosin Disposition: 1-2 days pending improved mental, respiratory, and renal functions. Patient amenable to a SNF placement. This case was discussed with Dr. Grubbs from nephrology who agrees that today the patient does seem to be a little dehydrated and will continue fluids at 80 mL an hour after current fluid bolus. We will continue to monitor the patient. GI Prophylaxis: H2 nivia VTE Prophylaxis: Sub-Q Heparin (Unfractionated) Resuscitation Status: CPR: Attempt Resuscitation Attending Statement The patient was seen and examined together with Dr. Marx on 05/31/16 and I have added additional information to the note above. BRANDON MARX DO May 31, 2016 11:10 Nakia Kay DO May 31, 2016 13:31
--- NOTE | 2016-05-31 12:41 | DRSVH ---
PROCEDURE: X-RAY CHEST ONE VIEW, PORTABLE ([id number]) INDICATIONS: Pneumonia TECHNIQUE: One view of the chest was acquired. COMPARISON: Located Within [facility], CR, XR CHEST 1VW (PORTABLE), 05/24/2016, 5:20. FINDINGS: Surgical changes and devices: Electronic device again seen projected over the mid left lung. Cholecy stectomy clips. Lungs and pleura: Bibasalar space opacity present otherwise lungs are clear. Mediastinum: Mediastinal contours appear normal. Heart size is normal. Bones and chest wall: No suspicious bony lesions. Overlying soft tissues appear unremarkable. Maddy re left glenohumeral joint arthropathy and probable intra-articular body involving the right glenohum eral join IMPRESSION: Bibasilar atelectasis versus aspiration or pneumonia. Correlate clinically. Dictated by: Earl Zavala RRA Interpreted: Wendie Villar MD on 05/31/2016 at 12:37 Transcribed by: ANDRES on 05/31/2016 at 12:40 Approved by: Wendie Villar MD, PhD on 05/31/2016 at 13:17
--- NOTE | 2016-05-31 13:04 | NUR ---
NS infusion IV on hold per patient's request while he eats.
--- NOTE | 2016-05-31 13:30 | PCM.PNNEPH ---
Gabe iNce DO 05/31/16 1330: Subjective Date of Service May 31, 2016 Subjective The patient states that his had some abdominal pain as well as some shortness of breath and cough which is consistent with the prior days. The patient states that he does not believe he is fully emptying his bladder after voiding. He denies any ongoing fever or chills, or nausea and vomiting. Exam Vital Signs Vital Sign - Last Date Time Temp Pulse Resp B/P Pulse Ox O2 Delivery O2 Flow Rate FiO2 05/31/16 12:37 36.5 103 12 104/86 94 Nasal Cannula 1.00 Intake and Output 05/30/16 05/30/16 05/31/16 Cumulative From/Thru 15:00 23:00 07:00 05/21/16 03:44 - 05/31/16 06:09 Intake Total 270 ml 800 ml 13882 ml Output Total 100 ml 200 ml 1250 ml 30551 ml Balance -100 ml 70 ml -450 ml 6917 ml Intake Oral 39637 ml IV Total 20 ml 6234 ml TPN/PPN 250 ml 800 ml 1050 ml Output Urine Total 100 ml 200 ml 1250 ml 25247 ml # Voids 0 4 # Bowel Movements 6 Exam General: Pleasant and cooperative elderly male, awake and alert laying in hospital bed in no apparent distress, tinted eyeglasses in place Eyes: PERRLA, EOMI, anicteric sclera, noninjected conjunctiva HENT: Normocephalic, atraumatic. External ears without defect. dry mucus membranes without central cyanosis or cobblestoning mucosa Neck: Supple with full range of motion. noted mild jugular venous distension which decreases with inspiration Cardiovascular: Irregularly irregular rate and rhythm with no murmurs appreciated. Pulmonary: mild course breath sounds noted in the axillary bases bilaterally worse in the right with significant upper airway transmission no notable wheezing. Normal respiratory effort. No use of accessory muscles. Abdomen: Soft, nontender, nondistended, some guarding noted Extremities: pulses intact bilaterally at the radial and dorsalis pedis with no edema, cyanosis or clubbing appreciated Skin: Normal temperature, and texture, mildly decreased skin turgor Neurological: Cranial nerves grossly intact, without focal neurologic deficit Psychiatric: Calm cooperative and pleasant. Normal mood and affect Lab and Diagnostics Result Diagram: 05/31/16 0302 05/31/16 0302 Microbiology Urine Strep pneumo antigen negative Blood cultures negative to date Nasopharyngeal PCR positive for RSV X-Rays, CTs and MRIs X-RAY CHEST ONE VIEW, PORTABLE IMPRESSION: No acute cardiopulmonary findings. Dictated by: Mitra Marshall M.D. on 05/21/2016 at 7:16 X-RAY CHEST, TWO VIEWS IMPRESSION: No acute cardiopulmonary disease. Dictated by: Tiana Gary M.D. on 05/22/2016 at 11:43 X-RAY CHEST ONE VIEW, PORTABLE IMPRESSION: No acute cardiopulmonary disease. Dictated by: Tiana Gary M.D. on 05/24/2016 at 8:42 US RENAL SONOGRAM IMPRESSION: A post-renal cause is not identified for renal insufficiency. Echogenic bilateral kidneys, consistent with medical renal disease. Dictated by: Enoch Zhu M.D. on 05/25/2016 at 14:19 Cardiac Echo Impressions Echocardiogram Report Interpretation Summary Left ventricular systolic function is normal without focal wall motion abnormalities. The ejection fraction is estimated to be 60-65%. LVEF has not changed since priro study. Left ventricular wall thickness is mild-moderately increased. The right ventricle is at the upper limits of normal in size. The right ventricular systolic function is normal. Right ventricular systolic pressure is estimated to be 20 mmHg plus the clinically estimated CVP which cannot be estimated on this exam. The left atrium is severely dilated. The right atrium is severely dilated. There is mild mitral regurgitation. There is no other significant valvular heart disease. The aortic root is mildly dilated. The ascending aorta is mildly enlarged. The aortic arch is mildly enlarged. Plan Impression is a 76-year-old male with past medical history of hypertension, PTSD, depression, pacemaker placement and history of pneumonia admitted for shortness of breath and cough concern for pneumonia. 1. Acute kidney injury on chronic kidney disease. 2. urinary retention with a history of BPH 3. Suspected congestive heart failure. Plan: 1. Acute kidney injury on chronic kidney disease. Present on admission. Ongoing - baseline creatine appears elevated around 1.3 or higher -Creatinine trended up after admission creatinine 1.72 to 3.38, this is likely due to a combination of prerenal azotemia secondary to overdiuresis as well as ischemic acute tubular necrosis due to low cardiac output from Atrial fibrillation with RVR and hypotension as well as obstructive uropathy with increased postvoid residual volumes -Encourage oral fluids monitored daily -Initiated PhosLo 667 mg 3 times a day -Patient appears to be still intravascularly volume depleted May 31 -Primary team to load 2 liters with the initial 1L at 150mL/hr and the second at 80mL/hr -Patient will need follow-up with nephrology as an outpatient and will likely have a higher baseline creatinine closer to the 1.7 than to the 1.3 2. urinary retention with a history of BPH. Present on admission. Ongoing - Discontinue home doxazosin, start prazosin for added PTSD control - Continue home tamsulosin - bladder scan showed urinary retention and a reported 1000mL of urine with schaffer placed by primary team - renal US ordered without cause of obstruction identified, likely BPH - Schaffer catheter removed May 30 and patient monitored for 6 hours with encouragement by nursing staff to micturate as well as with serial bladder scans before Schaffer replaced 3. Suspected congestive heart failure. Present on admission. Ongoing - prior echo 10/22/2014 showed EF 60/65% - Repeat echo showed EF 60-65%, LVEF not changed - Hold Lasix secondary to #1 - avoid fluid overload Delano Grubbs DO 05/31/16 1424: Exam Lab and Diagnostics Result Diagram: 05/31/16 0302 05/31/16 030 Plan Plan: Pt. was seen and examined with Dr. Nice, lab reviewed and plan detailed above. I feel that he has intravascular vol. depletion and IVF is appropriate. Gabe Nice DO May 31, 2016 13:30 Delano Grubbs DO May 31, 2016 14:24
--- NOTE | 2016-05-31 15:09 | NUR ---
[facility] will accept patient with to follow Updated [employer]
--- NOTE | 2016-05-31 16:56 | NUR ---
Social Work Note: Readiness for Discharge Data& Assessment: EMR reviewed. Pt is on day 10 of hospitalization for COPD/CHF per H&P. Pt is not medically stable, anticipate discharge in 1-2 more days. Pt received on site visit today from [facility] and Laura Medina. [facility] is agreeable to accept pt with MD Nelson to follow. PT reordered by MD. SW met with pt regarding discharge plan, reinforced need for pt to continue to work with PT. Pt agreeable to this, stated emphatically that he needs to get stronger. SW to update ID psych social worker Bautista ([phone]) as discharge plan evolves. Paperwork in chart, PASRR in folder. SW to continue to follow. Plan: [facility] has accepted pt with MD Nelson to follow. Paperwork in chart, PASRR in folder. SW to continue to follow. Yvonne Lakhani MSW
--- NOTE | 2016-05-31 18:34 | NUR ---
Fluids asked that NS be ran at 150 mls/hr per Nephrology consult for 1L then go to 80 mls/hr from there on out. NS started this am. Due to pt's IV being in his left ac it has taken a while to get in. When pt at rest it flows fine, when pt agitated and fidgety we need to remind him multiple times to quit bending his arm. Pt declines having another IV started. Orders still say NS at 250, will pass along in report.
[2016-05-31] MEDS ORDERED: 0.9% Sodium Chloride 1,000 ML IV SCH (20:40)
[2016-06-01] MEDS: Albuterol-Ipratropium 3 mL Inhalation Solution NEB SCH ×3 (00:19→08:48)
[2016-06-01 00:21] VITALS: PULSE 87; RESP 16; O2SAT 93
[2016-06-01 03:01] VITALS: BP 140/71; PULSE 101; RESP 15; O2SAT 92
[2016-06-01] MEDS ORDERED: 0.9% Sodium Chloride 1,000 ML IV SCH (03:19)
--- NOTE | 2016-06-01 03:24 | NUR ---
NOC activity uneventful night; tolerating IVF, NS at 80cc/hour per nephrology.
[2016-06-01 03:34] LABS: BASOPHILS % (AUTO) 0.1 % (0-3); EOSINOPHILS % (AUTO) 0 % (0-5); MONOCYTES % (AUTO) 7.6 % (4-12); Mean Corpuscular Hemoglobin 27.4 pg (27.0-35.0); Mean Corpuscular Volume 87.7 fL (81-100); Platelet Count 349 bil/L (150-400)
[2016-06-01] MEDS: 0.9% Sodium Chloride 1,000 ML IV SCH (05:55)
[2016-06-01 07:36] VITALS: BP 132/68; PULSE 70; RESP 16; O2SAT 95
[2016-06-01] MEDS: predniSONE 20 mg Tablet PO SCH (07:49)
[2016-06-01] MEDS: Diltiazem CD 240 mg ER24 Capsule PO SCH (07:50)
[2016-06-01] MEDS: Polyethylene Glycol (PEG) 17 Gm Powder PO SCH (07:51)
[2016-06-01] MEDS: Heparin 5,000 Unit/mL Inj SUBQ SCH (07:52)
[2016-06-01] MEDS: Haloperidol 5 mg/mL Inj IVPUSH PRN (10:13)
[2016-06-01 10:27] VITALS: PULSE 105
[2016-06-01] MEDS ORDERED: ASPI81TA3 PO (10:51)
[2016-06-01] MEDS ORDERED: GABA300C PO (10:51)
[2016-06-01] MEDS ORDERED: PRAZ2CAP PO (10:51)
[2016-06-01] MEDS ORDERED: OXYC5TAB72 PO (10:51)
[2016-06-01] MEDS ORDERED: DILT240C85 PO (10:51)
[2016-06-01] MEDS ORDERED: HALO5AMP3 IVPUSH (11:18)
[2016-06-01] MEDS ORDERED: PRED-508 PO (11:18)
[2016-06-01] MEDS ORDERED: CITA20TA PO (11:18)
[2016-06-01] MEDS ORDERED: MELA5TAB14 PO (11:18)
[2016-06-01] MEDS ORDERED: HALO5AMP3 PO (11:22)
--- NOTE | 2016-06-01 11:40 | PCM.DIMED ---
BRANDON MARX DO 06/01/16 1052: Discharge Instructions Date of Service Jun 01, 2016 Dates of Hospitalization May 21, 2016 at 08:00 Discharge Diagnosis Discharge Diagnosis . Acute on chronic respiratory failure with exacerbation of COPD and hypoxia Viral Pneumonia Atrial fibrillation with rapid ventricular response Suspected acute diastolic congestive heart failure PTSD with anxiety and depression Leukocytosis GILMAR Chest pressure Hyperglycemia Hyponatremia BPH Medication Instructions Mr. Benítez is being discharged with the following medications. New prescriptions: Aspirin 81 mg by mouth daily Citalopram 10 mg by mouth daily Diltiazem ER 240 mg by mouth daily Gabapentin 300 mg by mouth 3 times a day Haloperidol 2 mg by mouth 3 times a day Melatonin 5 mg by mouth at bedtime Prazosin 2 mg by mouth at bedtime Prednisone 10 mg by mouth daily for 2 days starting 06/02/2016 - patient will take 10 mg of this medication on 06/02/2016, an additional 10 mg this medication 06/03/2016 thus ending a prednisone taper Changed prescriptions: Oxycodone 5 mg tablets, 1 tablet by mouth every 4 when necessary Continued medications: Amlodipine 10 mg daily Albuterol/ipratropium (Combivent) 1 puff IH 4 times a day when necessary for SOB Calcium carbonate/vitamin D -2 each by mouth twice a day Tamsulosin 0.4 mg by mouth every morning Trazodone when he 5 mg by mouth at bedtime Stopped medications: Clonazepam Metoprolol Moxifloxacin Quetiapine Fumarate Terazosin Venlafaxine Diet Heart Healthy, Renal Diet Activity Limited until seen by PCP Call your provider Fever or Chills, Shortness of breath, Bleeding, Chest pain, Vomitting, Excessive diarrhea, Weakness (unilateral) Patient Instructions Patient is being [facility]. I spoke with the director of the facility Dr. Nelson and he is aware of patient transfer for inpatient needs. Follow-up Provider: Ken Nelson DO Follow-up with PCP in: 1 week Sanjay Stout MD 06/02/16 0208: Discharge Instructions Attending's Statement The patient was seen and examined together with Dr. Marx on 06/01/2016 and I agree with the history, exam and plan as outlined in the note above. . BRANDON MARX DO Jun 01, 2016 10:52 Sanjay Stout MD Jun 02, 2016 02:08
[2016-06-01 12:29] VITALS: BP 126/82; PULSE 98; RESP 12; O2SAT 98
--- NOTE | 2016-06-01 13:46 | PCM.PNNEPH ---
Subjective Date of Service Jun 01, 2016 Subjective The patient is a bit more alert today. He denies any chest pain, nausea or vomiting. His systolic blood pressures have ranged between 100 and 140. Intake and output in the last 24 hours are 2202 in and 2050 out. His hemoglobin is 9.1, sodium 136, potassium 5.8, chloride 103, bicarbonate 15, BUN and creatinine were 59 and 2.92 Exam Vital Signs Vital Sign - Last Date Time Temp Pulse Resp B/P Pulse Ox O2 Delivery O2 Flow Rate FiO2 06/01/16 12:29 36.8 98 12 126/82 98 Nasal Cannula 2.00 Intake and Output 05/31/16 05/31/16 06/01/16 Cumulative From/Thru 15:00 23:00 07:00 05/21/16 03:44 - 06/01/16 06:18 Intake Total 422 ml 980 ml 537 ml 27665 ml Output Total 175 ml 625 ml 650 ml 20780 ml Balance 247 ml 355 ml -113 ml 7406 ml Intake Oral 530 ml 537 ml 32414 ml IV Total 422 ml 450 ml 7106 ml TPN/PPN 1050 ml Output Urine Total 175 ml 625 ml 650 ml 18959 ml # Voids 1 5 # Bowel Movements 0 6 Exam HEENT examination is remarkable for pale sclera. Neck is supple without adenopathy, thyromegaly, or jugular venous distention. Lungs showed scattered rhonchi and end expiratory wheezes throughout both lung ayala. Heart was regular rhythmical but somewhat distant. Abdomen is soft without any tenderness rebound guarding masses or hepatosplenomegaly. Extremities show any evidence of any clubbing, cyanosis, or edema. Good. Lab and Diagnostics Result Diagram: 06/01/16 0311 06/01/16 0311 Microbiology Urine Strep pneumo antigen negative Blood cultures negative to date Nasopharyngeal PCR positive for RSV X-Rays, CTs and MRIs X-RAY CHEST ONE VIEW, PORTABLE IMPRESSION: No acute cardiopulmonary findings. Dictated by: Mitra Marshall M.D. on 05/21/2016 at 7:16 X-RAY CHEST, TWO VIEWS IMPRESSION: No acute cardiopulmonary disease. Dictated by: Tiana Gary M.D. on 05/22/2016 at 11:43 X-RAY CHEST ONE VIEW, PORTABLE IMPRESSION: No acute cardiopulmonary disease. Dictated by: Tiana Gary M.D. on 05/24/2016 at 8:42 RENAL SONOGRAM IMPRESSION: A post-renal cause is not identified for renal insufficiency. Echogenic bilateral kidneys, consistent with medical renal disease. Dictated by: Enoch Zhu M.D. on 05/25/2016 at 14:19 Cardiac Echo Impressions Echocardiogram Report Interpretation Summary Left ventricular systolic function is normal without focal wall motion abnormalities. The ejection fraction is estimated to be 60-65%. LVEF has not changed since priro study. Left ventricular wall thickness is mild-moderately increased. The right ventricle is at the upper limits of normal in size. The right ventricular systolic function is normal. Right ventricular systolic pressure is estimated to be 20 mmHg plus the clinically estimated CVP which cannot be estimated on this exam. The left atrium is severely dilated. The right atrium is severely dilated. There is mild mitral regurgitation. There is no other significant valvular heart disease. The aortic root is mildly dilated. The ascending aorta is mildly enlarged. The aortic arch is mildly enlarged. Plan Impression Impression #1 acute on chronic kidney injury #2 obstructive uropathy #3 type IV renal tubular acidosis Recommendations #1 would like to start him on sodium bicarbonate tablets 650 mg one twice a day. Once he is discharged like to see him in the office in about one month. Delano Grubbs DO Jun 01, 2016 13:46
--- NOTE | 2016-06-01 15:35 | NUR ---
Discharge Pt. discharged to [facility] [place]. Pt. left his watch and cologne in room 2006. Other belongings that Pt. had in his room he took with him. Transporters came and took Pt. down with wheel chair and patients information packet for [facility] was taken by transporters. Transfer report was given to RN from [facility].
--- NOTE | 2016-06-01 16:59 | NUR ---
Social Work Note: Discharge Data& Assessment: EMR reviewed. Per pt is medically ready to discharge. Donovan Benítez is a 76 year old male admitted on 05/21/2016 for COPD/CHF. Per pt is medically ready to discharge to SNF for rehab. PT continues to recommend SNF. SW met with pt at bedside to confirm discharge plan and assess for any unmet needs. Pt is excited to discharge to [facility]. Pt denies any other needs. SW confirmed with [facility] that they are able to accept pt today and arranged transportation for 3:30p.m. MD ISABEL, pt and facility all updated and agreeable to plan. SW also notified pt [place] social security specialist Bautista [phone]. Plan: Per pt is medically stable and ready to discharge to [facility] for rehab. MD ISABEL, pt and facility all updated and agreeable to plan. Pt denies any unmet needs. No other discharge needs identified. NATALIE Hernadez
--- NOTE | 2016-06-01 17:42 | PCM.DC.MED ---
Discharge Summary Date of Service Jun 01, 2016 Dates of Hospitalization Date of Hospital Admission May 21, 2016 at 08:00 Date of Discharge: Jun 01, 2016 Providers: Admitting Physician: Sumit Dominguez MD Primary Care Physician: Nopcp Attending Physician: Sumit Dominguez MD Diagnosis at Time of Discharge Diagnosis at Time of Discharge . Acute on chronic respiratory failure with exacerbation of COPD and hypoxia Viral Pneumonia Atrial fibrillation with rapid ventricular response Suspected acute diastolic congestive heart failure PTSD with anxiety and depression Leukocytosis GILMAR Chest pressure Hyperglycemia Hyponatremia BPH Consultations Dr. Hai Varghese, nephrology Dr. Mildred D.O., psychiatry Dr. Romie D.O., nephrology Procedures XRay, CTs & MRIs X-RAY CHEST ONE VIEW, PORTABLE IMPRESSION: No acute cardiopulmonary findings. Dictated by: Mitra Marshall M.D. on 05/21/2016 at 7:16 X-RAY CHEST, TWO VIEWS IMPRESSION: No acute cardiopulmonary disease. Dictated by: Tiana Gary M.D. on 05/22/2016 at 11:43 X-RAY CHEST ONE VIEW, PORTABLE IMPRESSION: No acute cardiopulmonary disease. Dictated by: Tiana Gary M.D. on 05/24/2016 at 8:42 US RENAL SONOGRAM IMPRESSION: A post-renal cause is not identified for renal insufficiency. Echogenic bilateral kidneys, consistent with medical renal disease. Dictated by: Enoch Zhu M.D. on 05/25/2016 at 14:19 Cardiac Echo Impression Echocardiogram Report Interpretation Summary Left ventricular systolic function is normal without focal wall motion abnormalities. The ejection fraction is estimated to be 60-65%. LVEF has not changed since priro study. Left ventricular wall thickness is mild-moderately increased. The right ventricle is at the upper limits of normal in size. The right ventricular systolic function is normal. Right ventricular systolic pressure is estimated to be 20 mmHg plus the clinically estimated CVP which cannot be estimated on this exam. The left atrium is severely dilated. The right atrium is severely dilated. There is mild mitral regurgitation. There is no other significant valvular heart disease. The aortic root is mildly dilated. The ascending aorta is mildly enlarged. The aortic arch is mildly enlarged. Brief History History of present illness per Dr. Alberto M.D. 05/21/2016 "The patient is a 76-year-old white male with a history of hypertension, depression, pacemaker insertion and COPD who was just admitted to the [facility] PTSD unit in [place] for 2 weeks and was just discharged less than 48 hours ago. He began feeling like he was getting pneumonia in the left lung. He has had pneumonia in an numerous occasions. He was recently seen at [facility] as well as the [place] where he was diagnosed with pleurisy was put on penicillin. His cough and shortness of breath worsened following discharge and he beat became concerned again that he had pneumonia. Patient decided to seek medical care before symptoms became too severe as he has been hospitalized for 2 weeks at a time in the past for pneumonia. He states that he had pneumonia last November and it lasted 13 weeks". Therefore, patient came to [facility] emergency room for further evaluation and treatment. She was evaluated by Dr. Garcia. Patient was felt to have extreme shortness of breath. Patient had edema and jugular venous distention. His chest x-ray showed mildly increased heart size and mild venous engorgement consistent with CHF. His BNP was mildly elevated. Patient was treated with 40 mg of Lasix and with several 100 mL of urine output. Patient was also given a nebulizer treatment with some improvement. Is currently requesting a second treatment. He was eventually admitted to the hospitallist service for further evaluation and treatment." Hospital Course 76-year-old male with past medical history of hypertension, PTSD, depression, pacemaker placement and history of pneumonia admitted for shortness of breath and cough concern for pneumonia. Patient stayed in the hospital for 11 days total. Summary of hospital stay as below Acute on chronic respiratory failure with exacerbation of COPD and hypoxia - Prior to admission patient was not on home 2 and initially required O2 via nasal cannula periodically throughout hospital admission - Prednisone given, was almost complete with taper at time of discharge - DuoNeb's when necessary throughout hospital admission - Levofloxacin discontinued, no clinical indication bacterial infection - Respiratory PCR positive for RSV Pneumonia. -Viral PCR showed respiratory syncytial virus -Continued with supportive treatment. Atrial fibrillation with rapid ventricular response. - Etiology unknown, possibly secondary to respiratory failure and CHF - Cardizem drip initiated then weaned down with successful transition to oral diltiazem 240 mg daily with control of heart rate - Metoprolol XL 25 mg twice a day - stopped 05/30/2016 - Initial troponin slightly elevated 0.013, repeat troponin negative 2 Suspected acute diastolic congestive heart failure - Echo showed EF 60-65%, LVEF not changed. Normal RV function, severely dilated left and right atrium - Held Lasix PTSD with anxiety and depression. - Two days prior to admission he had completed 2 week stay at [facility] in [place] for [facility] - Psychiatry consult during hospital admission, recommendations as follows - Recommendations for discontinuation of Klonopin due to possible disinhibition with combined previous usage of Ativan. - Overall patient seems to not respond well to benzodiazepines - Recommendations for continuation of Celexa 10 mg q.a.m. - Introduction of some melatonin 5 mg q.h.s. for sleep and possible assistance in dealing with patient's factors of PTSD. - Continuation of prazosin with further titration to follow. - Continue to hold Seroquel based on the patient's previous history. - If the patient does show significant further elevation in aggression, recommendations would be to utilize p.r.n. doses of Haldol IV 2 mg q.2 h - Haldol was utilized with resolution of aggression and almost complete resolution of anxiety. Patient responded very well to this medication. Prior to discharge from hospital psychiatrist Dr. Levy contacted and agreed with discharge medication of 2 mg Haldol by mouth 3 times a day scheduled Leukocytosis. -Likely secondary to stress reaction versus steroids -Less likely bacterial infection -Calcitonin is mildly elevated 0.24, remained at this level throughout stay -Patient remains afebrile Acute renal failure, present on admission. Ongoing. - Nephrology followed patient throughout hospital admission - Upon discharge recommendations for sodium bicarbonate pills 650 mg twice a day Chest pressure. - EKG, troponin physical exam findings did not show evidence of myocardial infarction - Possibly secondary to anxiety or A. fib - Continued current medications as above, chest pressure resolved within 1 day of hospital admission History of gastric bypass surgery and lost approximately 300 pounds. - Nutrition consult, followed recommendations Hyperglycemia. - A1c 5.3 - Continue with diabetic diet Hyponatremia. - Resolved after fluid administration BPH. - Continued home doxazosin and changed to prazosin - Continued home tamsulosin Exam Vital Signs (Last) Date Time Temp Pulse Resp B/P Pulse Ox O2 Delivery O2 Flow Rate FiO2 06/01/16 12:29 36.8 98 12 126/82 98 Nasal Cannula 2.00 Exam General: Patient awake and alert lying in bed appropriately interactive. No apparent distress HEENT: Normocephalic, atraumatic. External ears without defect. Pupils equal, round, and reactive to light and accommodation. Eyeglasses in place hearing aids not in place Neck: Supple with full range of motion. No jugular venous distension. Cardiovascular: Regular rate with irregular irregular rhythm, no murmurs appreciated. Pulmonary: Upper anterior and posterior lung field expiratory wheezes bilaterally. Lung bases decreased air movement Normal respiratory effort. Abdomen: Soft, tender to palpation left lower quadrant, nondistended. No rigidity and no guarding. Extremities: No edema or clubbing appreciated Skin: Normal temperature, turgor, and texture Neurological: Cranial nerves grossly intact. Psychiatric: Calm and cooperative. Test 05/21/16 04:05 05/21/16 04:45 05/21/16 10:50 05/22/16 05:30 Prothrombin Time 10.4sec (8.1-12.5) Prothromb Time International Ratio 0.97ratio Hold Forrest Top Tube Received (Received) Urine Legionella pneumophilia Ag Negative (Negative) Hemoglobin A1c 5.3% (4.8-5.6) Troponin T 0.010ug/L (0.0-0.011) Pro-B-Type Natriuretic Peptide 6402pg/mL (0-486) Triglycerides Level 53mg/dL (0-149) Cholesterol Level 121mg/dL (100-199) LDL Cholesterol, Calculated 32.400mg/dL (0-99) VLDL Cholesterol 10.600mg/dL HDL Cholesterol 78mg/dL (>39) Cholesterol/HDL Ratio 1.55 (0.0-4.4) Test 05/25/16 09:45 05/25/16 18:24 05/29/16 02:14 06/01/16 03:11 Osmolality 300 (275-300) Thyroid Stimulating Hormone (TSH) 3.100uIU/mL (0.450-4.500) Urine Color Yellow (YELLOW) Urine Appearance Clear (CLEAR,HAZY) Urine pH 5.5 (5.0-8.0) Urine Specific [place] 1.015 (1.003-1.035) Urine Protein Negativemg/dL (NEG,TRACE) Urine Glucose (UA) Negativemg/dL (NEGATIVE) Urine Ketones Negativemg/dL (NEGATIVE) Urine Occult Blood Moderate (NEGATIVE) Urine Nitrite Negative (NEGATIVE) Urine Bilirubin Negative (NEGATIVE) Urine Urobilinogen Normalmg/dL (NORMAL) Urine Leukocyte Esterase Moderate (NEGATIVE) Urine RBC 3-10/hpf (0-2) Urine WBC 6-10/hpf (0-5) Urine Epithelial Cells Moderate/hpf (NONE-MOD) Urine Crystals None seen (NONE SEEN) Urine Bacteria Few/hpf (NONE-FEW) Urine Hyaline Casts None/lpf (NONE) Urine Granular Casts None seen (NONE SEEN) Urine Waxy Casts None seen (NONE SEEN) Urine Red Blood Cell Casts None seen (NONE SEEN) Urine White Blood Cell Casts None seen (NONE SEEN) Urine Mucus None seen (None Seen) Urine Trichomonas None seen (NONE SEEN) Urine Yeast None (NONE SEEN) Urinalysis Comment None Urine Culture Reflexed Indicated Urine Random Creatinine 85mg/dL (22-328) Urine Random Total Protein 16mg/dL (0-15) Urine Urea Nitrogen 700mg/dL (Not Estab.) Phosphorus Level 6.3mg/dL (2.5-4.9) White Blood Count 11.9th/mm3 (3.8-10.1) Red Blood Count 3.32mil/mm3 (4.40-5.80) Hemoglobin 9.1g/dL (13.8-17.2) Hematocrit 29.1% (41.0-50.0) Mean Corpuscular Volume 87.7fL (81-100) Mean Corpuscular Hemoglobin 27.4pg (27.0-35.0) Mean Corpuscular Hemoglobin Concent 31.3% (32.0-37.0) Red Cell Distribution Width 14.1% (12.3-15.4) Platelet Count 349bil/L (150-400) Neutrophils (%) (Auto) 83.0% (40-74) Lymphocytes (%) (Auto) 8.3% (14-46) Monocytes (%) (Auto) 7.6% (4-12) Eosinophils (%) (Auto) 0% (0-5) Basophils (%) (Auto) 0.1% (0-3) Sodium Level 136mEq/L (134-144) Potassium Level 5.2mEq/L (3.5-5.2) Chloride Level 103mEq/L (97-108) Carbon Dioxide Level 15mmol/L (18-29) Blood Urea Nitrogen 59mg/dL (8-27) Creatinine 2.92mg/dL (0.76-1.27) Estimat Glomerular Filtration Rate 23mL/min (>59) Glucose Level 97mg/dL (60-99) Calcium Level 8.5mg/dL (8.5-10.1) Magnesium Level 2.0mg/dL (1.6-2.6) Total Bilirubin 0.3mg/dL (0.0-1.2) Aspartate Amino Transf (AST/SGOT) 17U/L (0-50) Alanine Aminotransferase (ALT/SGPT) 19U/L (0-44) Alkaline Phosphatase 80U/L (25-160) Total Protein 5.5g/dL (6.4-8.4) Albumin 3.2g/dL (3.4-5.0) Procalcitonin 0.21ng/mL (0.00-0.08) Microbiology Results Urine Strep pneumo antigen negative Blood cultures negative to date Nasopharyngeal PCR positive for RSV Discharge Medications Discharge Medications Amlodipine (Amlodipine) 10 Mg Tablet 10 MG PO DAILY (Reported) Aspirin Chew (Aspirin Chew) 81 Mg Chew 81 MG PO DAILY Prescribed by: BRANDON MARX DO Calcium Carbonate/Vitamin D3 (Calcium 250+D Tablet) 1 Each Tablet 2 EACH PO BID (Reported) Citalopram Hydrobromide (Celexa) 20 Mg Tablet 10 MG PO DAILY Prescribed by: BRANDON MARX DO Diltiazem ER (Cardizem CD) 240 Mg Cap.er.24h 240 MG PO DAILY Prescribed by: BRANDON MARX DO Gabapentin (Neurontin) 300 Mg Capsule 300 MG PO TID Prescribed by: BRANDON MARX DO Prazosin (Minipress) 2 Mg Capsule 2 MG PO HS Prescribed by: BRANDON MARX DO Prednisone (Deltasone) 20 Mg Tablet 10 MG PO DAILY Prescribed by: BRANDON MARX DO Tamsulosin (Flomax) 0.4 Mg Capsule 0.4 MG PO QAM (Reported) Trazodone (Trazodone) 50 Mg Tablet 25 MG PO HS (Reported) As needed Albuterol/Ipratropium (Combivent Respimat Inhal [place]) 120 Spr/4 Gm Inhaler 1 PUFF IH QID PRN PRN For Shortness of Breath (Reported) Haloperidol Lactate (Haloperidol) 5 Mg/1 Ml Ampul 2 MG PO TID PRN PRN For Agitation Prescribed by: BRANDON MARX DO Melatonin (Melatonin) 5 Mg Tablet 5 MG PO HS PRN PRN Insomnia Prescribed by: BRANDON MARX DO Sodium Bicarbonate (Sodium Bicarbonate) 650 Mg Tablet 650 MG PO BID PRN PRN DO Prescribed by: BRANDON MARX DO oxyCODONE (oxyCODONE) 5 Mg Tablet 5 MG PO Q4H PRN PRN For Pain Prescribed by: BRANDON MARX DO Additional med instructions Mr. Benítez is being discharged with the following medications. New prescriptions: Aspirin 81 mg by mouth daily Citalopram 10 mg by mouth daily Diltiazem ER 240 mg by mouth daily Gabapentin 300 mg by mouth 3 times a day Haloperidol 2 mg by mouth 3 times a day Melatonin 5 mg by mouth at bedtime Prazosin 2 mg by mouth at bedtime Prednisone 10 mg by mouth daily for 2 days starting 06/02/2016 - patient will take 10 mg of this medication on 06/02/2016, an additional 10 mg this medication 06/03/2016 thus ending a prednisone taper Changed prescriptions: Oxycodone 5 mg tablets, 1 tablet by mouth every 4 when necessary Continued medications: Amlodipine 10 mg daily Albuterol/ipratropium (Combivent) 1 puff IH 4 times a day when necessary for SOB Calcium carbonate/vitamin D -2 each by mouth twice a day Tamsulosin 0.4 mg by mouth every morning Trazodone when he 5 mg by mouth at bedtime Stopped medications: Clonazepam Metoprolol Moxifloxacin Quetiapine Fumarate Terazosin Venlafaxine Additional medication instructions: Per Nephrology - patient to start on sodium bicarbonate 650 mg twice a day, this prescription was sent to patient's pharmacy [facility] Followup Plan Disposition: Discharged to shelter facility in stable condition Follow-up plan Follow-up with Dr. Nelson within the week, follow up Dr. Grubbs of nephrology in one month Discharge Diet: Heart Healthy, Renal Diet Discharge Activity: Limited until seen by PCP Patient Instructions Patient is being discharged to shelter facility. I spoke with the director of the facility Dr. Nelson and he is aware of patient transfer for inpatient needs. Follow-up Provider: Ken Nelson DO Follow-up with PCP in: 1 week Provider: Delano Grubbs DO Follow-up in: 4 weeks Time spent Greater than 30 minutes was spent in preparation of discharge with greater than 50% of that time dedicated to patient counseling and coordination of care. . Attending Statement The patient was seen and examined together with Dr. Marx on 06/01/2016 and I agree with the history, exam and plan as outlined in the note above. . copies to: Delano Grubbs DO; Ken Nelson GILES A DO Jun 01, 2016 17:42 Sanjay Stout MD Jun 02, 2016 02:12
[2016-06-01] MEDS ORDERED: SODI650T PO (17:50)
== END 2016-06-01 15:32 | DRG 189 ==
LOC: SED 03:43 → MPC 08:00 → OBSVTOIN 08:00 → PCC 05-22 14:47 → UNDODISIN 05-31 11:47
PROVIDERS: ADMIT Internal Medicine Infectious Disease; ATTEND Internal Medicine Infectious Disease
DX: J96.21 Acute and chronic respiratory failure with hypoxia (principal); I50.31 Acute diastolic (congestive) heart failure; J12.1 Respiratory syncytial virus pneumonia; J44.1 Chronic obstructive pulmonary disease with (acute) exacerbation; N17.9 Acute kidney failure, unspecified; E87.1 Hypo-osmolality and hyponatremia; I13.0 Hypertensive heart and chronic kidney disease with heart failure and stage 1 through stage 4 chronic kidney disease, or unspecified chronic kidney disease; F43.10 Post-traumatic stress disorder, unspecified; Y36.90XA War operations, unspecified, initial encounter; F32.9 Major depressive disorder, single episode, unspecified; Z95.0 Presence of cardiac pacemaker; Z87.891 Personal history of nicotine dependence; Z98.84 Bariatric surgery status; I48.91 Unspecified atrial fibrillation; R73.9 Hyperglycemia, unspecified; N40.1 Benign prostatic hyperplasia with lower urinary tract symptoms; R33.8 Other retention of urine; Z78.1 Physical restraint status; N18.9 Chronic kidney disease, unspecified

== ENCOUNTER 2016-06-18 04:13 | Inpatient (IN) | payer OTHER ==
[2016-06-18] VITALS (13 sets, daily range): BP systolic 86–118; BP diastolic 52–70; PULSE 101–126; RESP 17–23; O2SAT 89–99
[~2016-06-18] VITALS: Ht 177.8 cm; Wt 90.2 kg
[~2016-06-18 04:13] MED LIST changes: +ASPI81TA3 PO; +CITA20TA PO; +DILT240C85 PO; +GABA300C PO; +HALO5AMP3 PO; -KLO1T PO; +MELA5TAB14 PO; -METO25TA99 PO; -MOXI400T32 PO; +PRAZ2CAP PO; +PRED-508 PO; -QUET50TA55 PO; +SODI650T PO; -TERA2CAP4 PO; -VENL75TA3 PO
[2016-06-18] MEDS ORDERED: Albuterol-Ipratropium 3 mL Inhalation Solution ONE (04:23)
[2016-06-18] MEDS ORDERED: Albuterol 2.5 mg/3 mL Inhalation Solution NEB ONE (04:34)
--- NOTE | 2016-06-18 04:35 | ED.REPORT ---
HPI-General Illness Date of Service June 18, 2016 ED Provider: Sumit Fields MD 76 year old male with a history of COPD, multiple episodes of pneumonia, chronic renal failure, and HTN presents to the ER via EMS after staff at [facility] found him unresponsive with decreased O2 saturation just prior to arrival. Recent diagnosis of pneumonia. He was given oxycodone and Ativan at 03:30. It is not possible to obtain a history from the patient due to his current condition. Nursing Notes Stated Complaint: SHORT OF BREATH Chief Complaint: Respiratory Distress Nursing Notes Reviewed: Yes Allergies: Coded Allergies: meperidine (Verified Allergy, Severe, HIVES, 12/02/15) HAS TOLERATED OXYCODONE X MANY morphine (Verified Allergy, Severe, HIVES, 12/02/15) HAS TOLERATED OXYCODONE X MANY hydroxyzine (Verified Allergy, Intermediate, Hives, 12/02/15) codeine (Verified Allergy, Unknown, 12/02/15) HAS TOLERATED OXYCODONE X MANY Scheduled Amlodipine (Amlodipine) 10 Mg Tablet 10 MG PO DAILY Aspirin Chew (Aspirin Chew) 81 Mg Chew 81 MG PO DAILY Calcium Carbonate/Vitamin D3 (Calcium 250+D Tablet) 1 Each Tablet 2 EACH PO BID Citalopram Hydrobromide (Celexa) 20 Mg Tablet 10 MG PO DAILY Diltiazem ER (Cardizem CD) 240 Mg Cap.er.24h 240 MG PO DAILY Gabapentin (Neurontin) 300 Mg Capsule 300 MG PO TID Prazosin (Minipress) 2 Mg Capsule 2 MG PO HS Prednisone (Deltasone) 20 Mg Tablet 10 MG PO DAILY Tamsulosin (Flomax) 0.4 Mg Capsule 0.4 MG PO QAM Trazodone (Trazodone) 50 Mg Tablet 25 MG PO HS Scheduled PRN Albuterol/Ipratropium (Combivent Respimat Inhal [place]) 120 Spr/4 Gm Inhaler 1 PUFF IH QID PRN PRN For Shortness of Breath Haloperidol Lactate (Haloperidol) 5 Mg/1 Ml Ampul 2 MG PO TID PRN PRN For Agitation Melatonin (Melatonin) 5 Mg Tablet 5 MG PO HS PRN PRN Insomnia Sodium Bicarbonate (Sodium Bicarbonate) 650 Mg Tablet 650 MG PO BID PRN PRN DO oxyCODONE (oxyCODONE) 5 Mg Tablet 5 MG PO Q4H PRN PRN For Pain General Time Seen by MD: 04:34 Chief Complaint Other (Shortness of Breath) Hx Obtained From: EMS Arrived By: Ambulance Sudden in Onset?: Yes Onset Occurred: Just prior to arrival Symptom Duration: Since onset Context Related History: Reports COPD Similar Sx Previous: Yes Past Medical History Past Medical History Notes: Multiple admissions for pneumonia Recent admission with acute on chronic renal failure COPD PTSD/depression Chronic atrial fibrillation Hypertension Past Medical History depression PTSD from [place] Reports: COPD, Congestive heart failure, GERD, Hypertension Reports: Atrial fibrillation, Depression, Renal failure Past Surgical History Pacemaker Reports: Knee replacement, Pacemaker insertion Family History Noncontributory Smoking History Former Smoker Social History Alcohol Use: In recovery Drug Use: Denies drug use Other Social History: Local resident Occupation [place] [employer] Amb[employer] Status Independent Review of Systems Unable to Obtain ROS Patient condition Physical Exam Vital Signs Vital Signs Date Time Temp Pulse Resp B/P Pulse Ox O2 Delivery O2 Flow Rate FiO2 06/18/16 05:39 96 06/18/16 05:15 113 23 118/61 99 Mechanical Ventilator 06/18/16 05:00 115 19 86/52 94 11 06/18/16 04:23 37.3 101 20 102/56 89 Nasal Cannula 5 Initial VS: Reviewed Head / Eyes: Atraumatic, Normocephalic Neck: Supple, Non-tender, Full range of motion Abdomen / GI: Soft, Non-tender, No guarding, No rebound, No distention Extremities: Vascular intact, Neuro intact, No swelling, No tenderness Skin: Warm, Dry, No cyanosis General/Constitutional: Well developed, Well nourished Alertness: Positive: Unresponsive Neck: Full range of motion, Non-tender, No midline vertebral tend Neck Vascular: Positive: JVD moderate (Drains with occasional prolonged labored breaths) Resp Distress / Stridor: Positive: Resp distress severe Rales / Rhonchi: Positive: Rales diffuse, Rhonchi diffuse Heart Rate / Rhythm: Positive: Irregular rhythm, Tachycardia Chronic peripheral edema. Abdomen: Soft, Non-tender, No guarding, No rebound, No distention Draining wound, dressed. Neurologic: No motor deficits, No sensory deficits Mental Status: Positive: Unresponsive Interpretation & Diagnostics Lab Results Interpretation Result Diagram: 06/18/16 0455 06/18/16 0455 Test 06/18/16 04:50 06/18/16 04:55 06/18/16 05:45 Hold Forrest Top Tube Received (Received) White Blood Count 8.9th/mm3 (3.8-10.1) Red Blood Count 2.92mil/mm3 (4.40-5.80) Hemoglobin 8.0g/dL (13.8-17.2) Hematocrit 24.7% (41.0-50.0) Mean Corpuscular Volume 84.6fL (81-100) Mean Corpuscular Hemoglobin 27.4pg (27.0-35.0) Mean Corpuscular Hemoglobin Concent 32.4% (32.0-37.0) Red Cell Distribution Width 15.6% (12.3-15.4) Platelet Count 322bil/L (150-400) Neutrophils (%) (Auto) 87.4% (40-74) Lymphocytes (%) (Auto) 4.5% (14-46) Monocytes (%) (Auto) 7.8% (4-12) Eosinophils (%) (Auto) 0% (0-5) Basophils (%) (Auto) 0% (0-3) Prothrombin Time 11.0sec (8.1-12.5) Prothromb Time International Ratio 1.03ratio Activated Partial Thromboplast Time 33.0sec (22.8-33.0) Sodium Level 124mEq/L (134-144) Potassium Level 4.4mEq/L (3.5-5.2) Chloride Level 92mEq/L (97-108) Carbon Dioxide Level 16mmol/L (18-29) Blood Urea Nitrogen 90mg/dL (8-27) Creatinine 4.53mg/dL (0.76-1.27) Estimat Glomerular Filtration Rate 14mL/min (>59) Glucose Level 97mg/dL (60-99) Lactic Acid Level 1.0mmol/L (0.4-2.0) Calcium Level 8.0mg/dL (8.5-10.1) Phosphorus Level 7.0mg/dL (2.5-4.9) Magnesium Level 1.8mg/dL (1.6-2.6) Total Bilirubin 0.3mg/dL (0.0-1.2) Aspartate Amino Transf (AST/SGOT) 21U/L (0-50) Alanine Aminotransferase (ALT/SGPT) 11U/L (0-44) Alkaline Phosphatase 60U/L (25-160) Troponin T 0.034ug/L (0.0-0.011) Pro-B-Type Natriuretic Peptide 54837za/mL (0-486) Total Protein 6.0g/dL (6.4-8.4) Albumin 3.0g/dL (3.4-5.0) Lipase 125U/L (13-60) Procalcitonin 0.24ng/mL (0.00-0.08) Urine Color Yellow (YELLOW) Urine Appearance Cloudy (CLEAR,HAZY) Urine pH 7.5 (5.0-8.0) Urine Specific [place] 1.010 (1.003-1.035) Urine Protein Negativemg/dL (NEG,TRACE) Urine Glucose (UA) Negativemg/dL (NEGATIVE) Urine Ketones Negativemg/dL (NEGATIVE) Urine Occult Blood Trace (NEGATIVE) Urine Nitrite Negative (NEGATIVE) Urine Bilirubin Negative (NEGATIVE) Urine Urobilinogen Normalmg/dL (NORMAL) Urine Leukocyte Esterase Large (NEGATIVE) Urine RBC 0-2/hpf (0-2) Urine WBC Packed/hpf (0-5) Urine Epithelial Cells Occasional/hpf (NONE-MOD) Urine Crystals None seen (NONE SEEN) Urine Bacteria Moderate/hpf (NONE-FEW) Urine Hyaline Casts None/lpf (NONE) Urine Granular Casts None seen (NONE SEEN) Urine Waxy Casts None seen (NONE SEEN) Urine Red Blood Cell Casts None seen (NONE SEEN) Urine White Blood Cell Casts None seen (NONE SEEN) Urine Mucus None seen (None Seen) Urine Trichomonas None seen (NONE SEEN) Urine Yeast None (NONE SEEN) Urinalysis Comment None Urine Culture Reflexed Indicated X-Ray Chest Interpretation Chest Xray Interpretation: Diffuse right lung pneumnonia. NG tube in place. Endotracheal tube in place. View: Portable, 1 view Interpretation / Wet Read by: Wet read ED physician Procedures Central Line Placement Time: 06:03 Procedure Performed by: ED physician Consent / Setup / Site Prep: No consent - emergent, Time-out performed, Needle aspirate performed, Oxygen administered, Pulse oximeter applied, boiler room helper applied, Hand hygiene observed, Standard surgical scrub, Max barrier precaution, Sterile drapes applied, Position Trendelenburg Skin Preparation Agent: Hibiclens - Chlorhexidine Procedural Sedation/Analgesia: Sedation: Etomidate (20mg) Side / Location / Ultrasound: Subclavian right, Ultrasound assisted Catheter / Lumen / Technique: Triple lumen, Seldinger technique, Good blood return, Secured w catheter device Central Line Tip Location: Cath tip good position in the SVC Post-Procedure / Complications: Condition improved, Tolerated procedure well , Patient stable Intubation Time: 04:56 Procedure Performed by: ED physician Consent / Setup / Site Prep: No consent - emergent, Time-out performed, Oxygen administered, Pulse oximeter applied, boiler room helper applied, Hand hygiene observed, Stand sterile technique, Removed dentures Patient Position: Neutral position Blade / ET Tube / Route: [place], ET tube cuffed, Route: oral Procedural Sedation/Analgesia: Sedation: Etomidate (20mg) Neuromuscular Agent: Succinylcholine (160mg) ET Confirmation: Direct visualization, BS equal, End tidal CO2 device, CXR, Rising O2 sat Secured / Marked: ET tube device, Tube marked at ___ cm (22), Tube marked at teeth Complications: None Post-Procedure: Condition improved, Tolerated procedure well, Patient stable NG Tube Insertion Time: 05:08 Procedure Performed by: ED physician Site of Insertion: Nare right # of Attempts: 1 Size of Oral/NG Tube: 16 Fr Placement/Verification/Secured: Insertion difficult, Placement by auscultation , Verified by auscultation, Verified by x-ray Post-Procedure / Complications: Suction: continuous med, No complications, Tolerated procedure well, Patient stable Peripheral / EJ IV Start Time: 04:43 Procedure Performed by: ED physician Type of Catheter: Single lumen Size of Catheter: #18 # of Attempts: Unsuccessful IV Site: ACF left Skin Preparation Agent: Hibiclens - Chlorhexidine Proced Mod Sedation/Analgesia Time: 04:56 Procedure Performed by: ED physician Consent / Setup: No consent - emergent, Time-out performed, Hand hygiene observed, Stand sterile technique, Patient sitting up Preparation: boiler room helper applied, Pulse oximeter applied, Constant attendance, IV access established, Eval last meal time, Supplemental oxygen, Procedure explained, Suction available, End tidal CO2 mon applied VS Prior to Procedure: All vital signs normal, O2 saturation normal, Blood pressure normal, Heart Rate normal, Respiratory rate normal Mallampati: Class & Anatomy: 1 tonsils/uvula/s palate Airway Exam: Normal facial anatomy, Normal neck anatomy, Normal anatomy CVS/Resp Exam: Rales, Respiratory distress, Rhonchi Sedation: Sedation: Etomidate (20mg) Response During Procedure: Handled secretions adeq, Maintained airway well, Oxygenation stable, Sedation appropriate, Vital signs stable Complications During/After: None Reversal: None required Attestation: I performed procedure, I performed sedation Re-Eval/Medical Decision Med Decision/Clinical Course 76-year-old with multiple medical issues presents from [facility] with what is probably an aspiration episode and pneumonia. Pneumonia is fairly extensive and all of the right upper middle and lower lobes. He is requiring high flow oxygen to maintain barely adequate saturations. He is acidotic and required intubation. Blood pressure is been borderline. A central line was placed for fluid management and CVP measurements. BUN/creatinine are noted be markedly elevated from his recent discharge. He appears to be clinically somewhat dry, and some of the observed renal failure is probably prerenal azotemia superimposed on underlying chronic kidney disease. Begun with antibiotics for healthcare associated pneumonia including vancomycin and Zosyn and Levaquin. Urinary tract infection also noted. Source of Hx: Old records Counseled Regarding: Diagnosis, Lab results Discharge & Departure Primary Impression: Sepsis Additional Impressions: Pneumonia Acute on chronic renal failure HCAP (healthcare-associated pneumonia) UTI (lower urinary tract infection) Respiratory failure Hyponatremia Disposition: ADMITTED TO HOSPITAL Discharge Condition All VS Reviewed: Yes Condition: Critical Referrals: NOPCP (PCP) Crit Care Except Billable Proc Time Spent: 105-134 minutes (117) Services Performed: Patient management by me, Time spent at bedside, Reviewing test results, Reviewing imaging, Discussing patient care, Documentation in record Critical Care Notes: Critical care time exclusive of procedures including intubation, NG tube placement and right internal jugular triple-lumen central line placement all done by me. Ginaibe Attestation Portions of this note were transcribed by Giuliano Garg. I, Dr. Fields, personally performed the history, physical exam and medical decision-making; I reviewed and confirmed the accuracy of the information in the transcribed note. Signed by: Padmaja Matias, 06/18/2016 at 06:25 Sumit Fields MD June 18, 2016 04:35 GIULIANO GARG June 18, 2016 04:43
--- NOTE | 2016-06-18 04:41 | ABG ---
DateTimeAnalyzed 04:37:00 -_ pH ____7.246 - 7.350 7.450 pCO2 ___43.0__ -mmHg 35.0 45.0 pO2 ___36.5__ -mmHg 69.0 116 HCO3- ___18.0__ -mmol/L 22.0 26.0 ABE ___-8.2__ -mmol/L -2.0 2.0 tHb ____8.2__ -g/dL O2Hb ___61.2__ -% COHb ____1.0__ -% MetHb ____1.3__ -% sO2 ___62.6__ -% 25.0 FIO2 ___45.0__ -% Drawn By LT - Date/Time Notified____ 04:40:00 -_ Notified By LT - Notified Whom DR BORJA - B 755 -mmHg tO2 ____7.1__ -Vol% Joel test N/A -
[2016-06-18 05:07] LABS: BASOPHILS % (AUTO) 0 % (0-3); EOSINOPHILS % (AUTO) 0 % (0-5); MONOCYTES % (AUTO) 7.8 % (4-12); Mean Corpuscular Hemoglobin 27.4 pg (27.0-35.0); Mean Corpuscular Volume 84.6 fL (81-100); NEUTROPHILS % (AUTO) 87.4 % (40-74); Platelet Count 322 bil/L (150-400)
[2016-06-18] MEDS ORDERED: Propofol 10,000 mCg/mL 100 mL Inj ONE (05:18)
[2016-06-18 05:35] LABS: INR 1.03 ratio
[2016-06-18 05:53] LABS: TROPONIN T 0.034 ug/L (0.0-0.011)
[2016-06-18] MEDS ORDERED: levoFLOXacin Inj 750 MG in IV Premix 1 EACH IV ONE (05:55)
[2016-06-18] MEDS ORDERED: Vancomycin Dose per Pharmacist XX ONE (05:55)
[2016-06-18] MEDS ORDERED: Piperacillin-Tazo 3.375 Gm Inj 3.375 GM in Dextrose 5% Minibag Plus 50 ML IV ONE (05:55)
[2016-06-18] MEDS ORDERED: Vancomycin Inj 1,000 MG in IV Premix 1 EACH IV ONE (06:00)
[2016-06-18 06:03] LABS: APPEARANCE,URINE CLOUDY (CLEAR,HAZY); COLOR,URINE YELLOW (YELLOW); OCCULT BLOOD,URINE TRACE (NEGATIVE); PH,URINE 7.5 (5.0-8.0); UROBILINOGEN,URINE NORMAL (NORMAL)
[2016-06-18 06:08] LABS: Magnesium 1.8 mg/dL (1.6-2.6)
[2016-06-18] MEDS ORDERED: Succinylcholine Chloride 20 mg/mL 5 mL Inj ONE (06:19)
[2016-06-18] MEDS ORDERED: Propofol 10,000 mCg/mL 20 mL Inj ONE (06:19)
[2016-06-18] MEDS ORDERED: Acetaminophen IV 1,000 MG in IV Premix 1 EACH IV PRN (08:05)
[2016-06-18] MEDS: Albuterol-Ipratropium 3 mL Inhalation Solution NEB SCH ×2 (08:30→19:55)
[2016-06-18] MEDS: metroNIDAZOLE Inj 500 MG in IV Premix 1 EACH IV SCH ×3 (08:30→20:59)
[2016-06-18] MEDS: Chlorhexidine 0.12% 15 mL Oral Solution MT SCH ×4 (08:30→20:30)
--- NOTE | 2016-06-18 08:35 | NUR ---
Urgent admit from E.R. Intubated pt/borderline BP 94/59 after 500cc NS bolus. Sedation currently Propofol @ 10mcg/kg/min. Admit in progress. Med records requested from [facility].
[2016-06-18] MEDS ORDERED: LORA0.5T PO (09:05)
[2016-06-18] MEDS ORDERED: ALBU0.63 INHALATION (09:06)
[2016-06-18] MEDS ORDERED: FUR20 PO (09:07)
[2016-06-18] MEDS ORDERED: FLUT1AER IH (09:08)
[2016-06-18] MEDS ORDERED: MAGN400O4 PO (09:12)
[2016-06-18] MEDS: Propofol Inj 1,000,000 MCG in IV Premix 1 EACH IV SCH ×2 (09:12→15:50)
[2016-06-18] MEDS ORDERED: fentaNYL 2,500 mCg/250 mL 2,500 MCG in IV Premix 1 EACH IV PRN (09:12)
[2016-06-18] MEDS ORDERED: BISA10SU61 RC (09:13)
[2016-06-18] MEDS ORDERED: ACET325T51 PO (09:15)
[2016-06-18] MEDS ORDERED: ONDA-54 PO (09:17)
[2016-06-18] MEDS ORDERED: MELA1TAB11 PO (09:18)
[2016-06-18] MEDS ORDERED: 0.9% Sodium Chloride 1,000 ML IV ONE (09:20)
--- NOTE | 2016-06-18 10:02 | ABG ---
DateTimeAnalyzed 09:56:00 -_ pH ____7.463 - 7.350 7.450 pCO2 ___24.5__ -mmHg 35.0 45.0 pO2 ___71.7__ -mmHg 69.0 116 HCO3- ___17.3__ -mmol/L 22.0 26.0 ABE ___-5.4__ -mmol/L -2.0 2.0 tHb ____7.7__ -g/dL O2Hb ___93.1__ -% COHb ____0.0__ -% MetHb ____0.9__ -% sO2 ___93.9__ -% 25.0 FIO2 ___40.0__ -% PRVC 560 - PEEP ____5.0__ -cmH2O Set_RR ___20.0__ -b/min Vt __599.0__ -L Drawn By RC - Date/Time Notified____ 10:01:00 -_ Spontaneous_RR ___20.0__ -b/min Oxygen Device 1 VENTILATOR - Notified By RC - Notified Whom ___DR. FOUNTAIN - B 756 -mmHg tO2 ___10.2__ -Vol% Joel test _Positive -
--- NOTE | 2016-06-18 10:22 | CONS ---
[address] [address] CONSULTATION REPORT PATIENT: JAYLEN LOPEZ : 1940 MR#: [id number] ADMIT: 06/18/2016 JOB ID: [id number] DATE OF SERVICE: 06/18/2016 REQUESTING PHYSICIAN: Frandy perezist . REASON FOR CONSULTATION: Acute respiratory failure, acute kidney injury, pneumonia. HISTORY OF ILLNESS: The patient is a 76-year-old resident of a local care facility who was brought to our emergency room early on the day of admission due to altered mental status and hypoxemia. He was intubated in our department. Chest x-ray revealed extensive infiltrates throughout much of the right lung. Admission laboratories revealed significant acute kidney injury. Physical exam revealed a draining fluctuant wound over the mid abdomen. He was admitted to the intensive care unit, and pulmonary critical care consultation was requested. The patient himself is intubated and sedated and unable to provide additional information. None of his caregivers or other sources of information are available except for the electronic medical record. PAST MEDICAL HISTORY: 1. Morbid obesity, status post bariatric surgery. 2. History of PSVT. 3. Status post pacemaker placement, indication unclear from available records. 4. Obstructive sleep apnea, reportedly noncompliant with CPAP. 5. Chronic pain on chronic oral narcotics. 6. Nephrolithiasis. 7. Gastroesophageal reflux disease. 8. Prostatism. 9. Hypertension. 10. PTSD. 11. Previous "bowel blockages," status post surgeries. 12. "Colitis" 2012. 13. COPD by report without any documented pulmonary function testing to confirm. OUTPATIENT MEDICATIONS: No reconciliation done. 1. Albuterol by nebulizer q.4 p.r.n. 2. Albuterol ipratropium Respimat q.i.d. p.r.n. 3. Amlodipine 10 mg daily. 4. Citalopram 20 mg daily. 5. Diltiazem ER 240 mg daily. 6. Fluticasone/vilanterol Breo inhaler one puff daily. 7. Furosemide 20 mg daily. 8. Gabapentin 300 mg t.i.d. 9. Lorazepam 0.5 to 1 mg p.o. q.6 h. p.r.n. 10. Melatonin/pyridoxine at bedtime. 11. Zofran 8 mg p.r.n. 12. Oxycodone 5 mg p.o. q.4 p.r.n. 13. Prazosin 2 mg daily. 14. Trazodone 25 mg at bedtime. DRUG ALLERGIES: 1. CODEINE. 2. HYDROXYZINE. 3. MEPERIDINE. 4. MORPHINE. SOCIAL HISTORY: He is a resident of a local extended care facility. As mentioned, he is . Unable to obtain additional information. FAMILY HISTORY: Unable to obtain. REVIEW OF SYSTEMS: Unable to obtain given patient's intubation and sedation. PHYSICAL EXAMINATION: This is a pale, obese gentleman who is sedated and on ventilation through an oral airway. His blood pressure is 90/60. His heart rate is 112 with frequent extrasystoles. Respiratory rate is 20, on a ventilator rate of 18, and his O2 saturation is 97% on FiO2 of 0.35. He is and has been afebrile with a current temperature of 37.3. HEENT exam: Conjunctivae are pale, noninjected. Sclerae anicteric. Pupils are 8 mm bilaterally and gaze appears conjugate. Head is normocephalic and atraumatic. He has a catheter in the left external jugular vein and a triple-lumen catheter in the right internal jugular vein. Visible oral mucosa is moist and free of ulceration and exudate. The trachea is midline. There is no palpable lymphadenopathy, crepitus, or mass in the neck or supraclavicular region. Chest x-ray is normal to inspection with symmetric rise. He does have some transverse scars in the inframammary regions of both hemithorax. Not sure what this was. On auscultation, he has good air movement in all ayala with minimal scattered crackles over the right lung. No wheezing is heard. Cardiac exam shows a distant irregular rhythm with frequent extrasystoles. There is no murmur, gallop, or rub. Neck veins are flat. Pulses are 1+ at the wrist, trace palpable at both dorsalis pedis. Skin: He has some ecchymoses over the left upper arm. He has area of approximately 10 x 12 cm of erythema and induration over the mid abdomen centered over a well-healed midline incision scar. This is draining some purulent material. Abdomen: He has multiple healed scars. There is a palpable infraumbilical defect without any obvious hernia. No bowel tones are present. Not obviously tender, but he is sedated. There is no organomegaly. Extremities: He has got pale upper nail beds without other pathologic change. No cyanosis. No obvious synovitis at this point. Lower extremities show some trace edema. Neurologic: Sedated with some purposeful movements of his right upper extremity on response to noxious stimuli. DATABASE: Per the electronic medical record. His CBC shows a hemoglobin of 8, hematocrit 24.7, WBC 8.9 with 87% neutrophils and 322,000 platelets. His chemistry shows sodium 124, potassium 4.4, chloride 92, total CO2 of 16. BUN 90, creatinine 4.53, random glucose 97. Total calcium is 8.0. Lactate in the ER was 1.0. B type natriuretic peptide level is 15,413. Procalcitonin level of 0.24. Venous blood gas in the ER showed a pH of 17.25, a pCO2 of 43, and a pO2 of 36.5. IMPRESSION: 1. Hypoxemic respiratory failure, though with report he has significant chronic underlying lung disease and now has a fairly extensive right-sided pneumonia on his admission imaging. Given his residence in a care facility, we can assume this is a healthcare acquired infection. He should be covered for those organisms with antipseudomonal and Staphylococcus coverage empirically. Surprising, his gas exchange is not that disturbed, as he has adequate O2 saturations on 35%. He even appeared to tolerated a very brief spontaneous breathing trial when I was in the room initially, but given the fact that he has just arrived in critical care and we are attempting to collect his extensive records, I think will maintain him on volume cycle ventilation for now and begin spontaneous trials regularly tomorrow. 2. Acute kidney injury. He was apparently hospitalized within the last month but is is not clear that he had any significant exposures to known nephrotoxic agents during that stay. This current presentation is somewhat similar to his last admission when he had acute kidney injury and a creatinine of 2.5 that returned to near normal before he was discharged after approximately a week. I suspect that this is hypovolemia perhaps with a component of acute tubular necrosis from sepsis. He needs fairly aggressive volume resuscitation. If urine output does not improve, he may need additional studies, including ultrasound. At present, it appears he is not oliguric, so I am hopeful for renal recovery with volume replacement over time. There is no indication for acute hemodialysis present. 3. Abdominal wound. This appears just to be a superficial infection, but it does overlie an old midline incision, and with the presence of the defect in the infraumbilical area, I am concerned that there may be a foreign body such as mesh in this incision. Will attempt to obtain some outside records, culture this material, and cover him empirically for probable organisms including Staphylococcus. 4. Hyponatremia. 5. History of chronic obstructive pulmonary disease. He will be on scheduled inhaled bronchodilators. It appears from his outside medical records that he is on regular corticosteroids, and these should be continued if nothing else for stress doses, although he does not appear to have significant bronchospastic component complicating this admission. RECOMMENDATIONS: 1. Empiric antibiotics as you are with cefepime and vancomycin. Stress dose steroids should be given in light of his chronic steroid use and probably adrenal suppression. 2. Culture endotracheal aspirate and abdominal wound. 3. Attempt to obtain outside records regarding previous abdominal surgeries and regarding the presence of any implants. 4. Continued fluid resuscitation. 5. Close monitoring of urine output. 6. Consider retroperitoneal ultrasound if he becomes oliguric. 7. Serial metabolics. 8. Repeat blood gas. 9. Begin spontaneous breathing trials. 10. Routine sedation with fentanyl and propofol. 11. Routine intensive care unit prophylaxis with H2 nivia and subcutaneous unfractionated heparin. Thank you for requesting pulmonary critical care consultation. Total of 45 minutes critical care spent as of this dictation exclusive of procedures and shared time. We will continue following with you while he remains critically ill. CHUCK
--- NOTE | 2016-06-18 10:57 | CONS ---
[address] [address] CONSULTATION REPORT PATIENT: JAYLEN LOPEZ : 1940 MR#: [id number] ADMIT: 06/18/2016 JOB ID: [id number] DATE OF SERVICE: 06/18/2016 RENAL CONSULTATION: HISTORY: The patient is a 76-year-old white male who was admitted to [facility] from [facility] for sepsis, pneumonia, pyelonephritis, and acute on chronic kidney injury. Renal consultation is being sought for further evaluation of his acute on chronic kidney injury. The patient is well known to our service from a hospitalization several weeks ago. At that time, he was seen by my partner, Dr. Pacheco, for a similar picture of acute on chronic kidney injury due to sepsis. He had an improvement in his renal function, and at time of discharge, his creatinine was approximately 2.6. He was discharged to [facility] for rehabilitation. The patient is currently intubated and on a ventilator so most of the information has been obtained from the patient's chart. He has had multiple episodes of pneumonia. Apparently, he has had decreased responsiveness yesterday and through the night. This morning he was found to have CO2 retention, decreased oxygen saturation and hypotension. He was given aggressive IV hydration with improvement in his blood pressure. He was subsequently intubated and placed on a mechanical ventilator after he was found to be quite hypoxic and evidence of a right multilobular pneumonia. Since being on a ventilator, he has responded well to IV hydration. He has been given several antibiotics after being velazquez cultured. Of note, at time of admission, his BUN and creatinine were 90 and 4.53 and his urinalysis showed packed white cells, white cell casts, and moderate bacteria. PAST MEDICAL HISTORY: Is significant for chronic kidney disease secondary to prior episodes of acute tubular necrosis, hypertension with hypertensive heart disease and hypertensive nephrosclerosis. There is also a history of COPD, atrial fibrillation, and posttraumatic stress disorder. PAST SURGICAL HISTORY: Significant for a left knee replacement, pacemaker insertion, and some type of abdominal surgery. ALLERGIES: He is allergic to CODEINE, HYDROXYZINE, MEPERIDINE and MORPHINE. SOCIAL HISTORY: He has a history of heavy ethanol use in the remote past but currently has not drank or used tobacco in a number of years. FAMILY HISTORY: Is unobtainable. REVIEW OF SYSTEMS: Is unobtainable other than that detailed above. PHYSICAL EXAMINATION: Revealed a thin, pale, chronically ill-appearing 76-year-old white male who was sedated and on a ventilator. His blood pressure was 108/56 with a heart rate of 93. HEENT examination is remarkable for pale sclerae, dry mucous membranes. Sclerae and cornea were normal. Pupils were quite sluggish in their reaction to the light. Neck is supple without adenopathy, thyromegaly or jugular venous distention. Lungs showed a few scattered rhonchi, more pronounced on the right as compared to the left. Heart was regular and rhythmical with a soft systolic murmur. Abdomen showed a red and erythematous area of approximately 4 x 4 cm above the umbilicus in the midline with a purulent exudative ulcer noted. The area was quite indurated and warm to touch with diffuse erythema. Bowel sounds were diminished. There were no tenderness, rebound, guarding or masses noted. Extremities did not show any evidence of any clubbing, cyanosis or edema. Skin turgor was diminished and there is no evidence of any rashes. LABORATORY EXAMINATION: His white count is 8.9, hemoglobin of 8.0, hematocrit 24.7, red cell indices and platelet count were normal. There were 87 neutrophils. PT and PTT were normal. His sodium was 124, potassium 4.4, chloride of 92, bicarbonate 16, BUN and creatinine were 90 and 4.53, phosphorus is 7.0. Liver function studies were normal with the exception of an albumin of 3.0. His lipase was slightly elevated at 125. Urinalysis showed a specific gravity 1.010, pH was 7.5. Tests for occult blood and leukocyte esterase were positive. There were packed WBCs noted on microscopic and moderate bacteria. IMPRESSION: 1. 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 2. Acute pyelonephritis. 3. Metabolic acidosis. 4. Chronic kidney disease stage 4. 5. Hypertension with hypertensive heart disease and hypertensive nephrosclerosis. RECOMMENDATION: 1. I agree with the surgical evaluation of his abdominal issues. I would also like to cautiously volume expand him to keep his systolic blood pressure above 100 and he appears to be making a fair amount of urine. Once again, I would like to thank you for allowing me to participate in the care of this most unfortunate patient. I will be following him closely with you. Total time was 45 minutes.
--- NOTE | 2016-06-18 11:21 | NUR ---
NUTRITION ASSESSMENT: ASSESS:76 YO male readmitted with sepsis, pneumonia, pyelonephritis, and acute on chronic kidney injury in patient with chronic stage 4 kidney disease. 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 He was intubated in the ED related to AMS and hypoxemia. Surgery consult pending. Code status: full. PMHx:Morbid obesity status post bariatric surgery, chronic kidney disease secondary to prior episodes of acute tubular necrosis, hypertension with hypertensive heart disease and hypertensive nephrosclerosis, COPD, atrial fibrillation, and posttraumatic stress disorder. DIET:NPO. LABS: Reviewed. Na 124, Chloride 92, CO2 16, BUN 90, Cr 4.53, Ca 8.0, Phos 7.0, Troponin 0.034, BNP 19567, alb 3.0, Lipase 125, Procalcitonin 0.24. MEDICATIONS: Reviewed. Fentanyl. Propofol rate 5 mL/hr, providing 132 lipid kcal. NUTRITION FOCUSED PHYSICAL ASSESSMENT: GI symptoms / stool: No stool reported.Rogelio: Not yet recorded. 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 ANTHROPOMETRICS: Current Wt: 84.3 kgBMI: 26.7 kg/m2. IBW: 75.45 kg (112% IBW) ESTIMATED NEEDS (VENT, GILMAR): Calories: 2108 - 2529 (25 - 30 kcal / kg BW) Protein: 67 - 84 g protein (0.8 - 1.0 g / kg BW) NUTRITION DIAGNOSIS: 1)Inadequate oral intake related to inability to consume sufficient energy, as evidenced by NPO / vent status. 2)Increased nutrient needs related to wound, acute on chronic stage 4 renal disease, as evidenced by multiple electrolyte abnormalities, nephrology and surgery consults. INTERVENTION: 1) Enteral nutrition formula difficult to recommend at this time, as there are no I&O's recorded, nephrology is cautiously observing renal function, and he appears to be a CO2 retainer. Potential enteral formula possibilities follow: a) Nepro, goal rate 60 mL/hr, would provide 2376 kcal (2508 kcal with propofol), 107 g protein. b) Pulmocare, goal rate 70 mL/hr, would provide 2310 kcal (2442 with propofol), 96 g protein. 2) In the event enteral feeding ordered today, would recommend trophic feeding with Nepro until POC determined. MONITOR/EVALUATE: NPO / vent status, renal and pulmonary function, labs, GI/nutrition status. Follow up per high nutrition risk guidelines.
[2016-06-18 11:44] LABS: Magnesium 1.7 mg/dL (1.6-2.6)
[2016-06-18] MEDS ORDERED: Chlorhexidine 0.12% 15 mL Oral Solution MT SCH (12:30)
--- NOTE | 2016-06-18 12:43 | DRSVH ---
PROCEDURE: X-RAY CHEST ONE VIEW, PORTABLE ([id number]) INDICATIONS: POST CENTRAL LINE TECHNIQUE: One view of the chest was acquired. COMPARISON: [facility], CR, XR CHEST 1VW (PORTABLE), 05/24/2016, 5:20. [facility], CR, XR CHEST 2VW, 05/22/2016, 8:29. [facility], CR, XR CHEST 2VW, 05/18/2016, 17:1 8. [facility], CR, XR CHEST 1VW (PORTABLE), 12/02/2015, 19:32. [facility], CR, XR CHEST 1VW (PORTABLE), 06/18/2016, 4:46. FINDINGS: Surgical changes and devices: Endotracheal tube with the tip projecting 3 cm above the samantha. Right subclavian central venous catheter with the tip projecting in the mid SVC. Enteric tube is seen with the tip below the gastroesophageal junction however not included on study. Lungs and pleura: Extensive right lung widespread consolidation appears mildly worsened since earlier same day. Left lung appears clear Mediastinum: Cardiac stable Bones and chest wall: No suspicious bony lesions. Overlying soft tissues appear unremarkable. Maddy re bilateral shoulder joint degeneration as before. Right rib fracture, as before IMPRESSION: Slight worsening in widespread right lung consolidative opacity since earlier same day. Support equipment as above. No pneumothorax. Dictated by: Rizwan Orta M.D. on 06/18/2016 at 12:40 Approved by: Rizwan Orta M.D. on 06/18/2016 at 12:42
[2016-06-18] MEDS ORDERED: Vancomycin Dose per Pharmacist XX SCH (13:20)
[2016-06-18] MEDS ORDERED: Vancomycin Inj 1,250 MG in 0.9% Sodium Chloride 250 ML IV ONE (13:45)
--- NOTE | 2016-06-18 13:48 | PCM.CONPHA ---
Subjective Date of Service: June 18, 2016 Vancomycin dosing Reason for Pharmacy Consult: Vancomycin Dosing Assessment/Plan Assessment/Plan Patient is a 76 y.o. male receiving vancomycin for pneumonia. Concurrent abx include: cefepime. WBC count is 8.9 and the patient is febrile. Patient is 84 kg, 70 inches tall with a SCr of 4.53 mg/dL--with GILMAR. Renal dosing in GILMAR will be an initial dose of 15mg/kg and then daily random vancomycin levels will be drawn. Pt. will be redosed for random levels <20. First random level will be drawn 06/19 @ 0500. Pharmacy will follow daily and adjust as appropriate. Thank you for the consult in the care of this patient. P Sanjay Zepeda June 18, 2016 13:48
--- NOTE | 2016-06-18 13:55 | DRSVH ---
PROCEDURE: CT ABDOMEN AND PELVIS WITHOUT CONTRAST ([id number]) INDICATIONS: mesenteric cutaneous fistula TECHNIQUE: After the administration of oral contrast, 5 mm thick sections acquired from the diaphragms to the sy mphysis. 5 mm coronal and sagittal reformats were performed. For radiation dose reduction, the foll owing was used: automated exposure control, adjustment of mA and/or kV according to patient size. COMPARISON: [facility], CT, CT ABD PELVIS W CON, 09[facility]02[facility]2014[facility] 18:18[facility] 06/18/2016, 6:19. FINDINGS: Image quality: Excellent. ABDOMEN: Lung bases: Small bilateral pleural effusions, with adjacent atelectasis right greater than left. Hea rt mildly enlarged. Enteric tube is present. Solid organs: Liver and spleen are normal in size. Gallbladder surgically absent. Pancreas is norm al in size. No adrenal nodules. Both kidneys are mildly atrophic in size, without hydronephrosis or nephrolithiasis. Peritoneum and bowel: Stomach demonstrates postsurgical changes. There is a large amount of stool. Sc attered air-fluid levels are present however no definite bowel obstruction or transition point. Marke d amount of stool seen in the rectum. Oral contrast material is present within small bowel loops. The re is linear density seen along the anterior abdominal wall and midline in position, which is probabl y postsurgical changes related to mesh and present on prior study dated 09/02/14. There is a small xu unt of oral contrast material seen within midline anterior abdominal wound in keeping with patient's given clinical history of enterocutaneous fistula, however the actual location is not definitely well -visualized. There is a small bubble of gas seen in the subcutaneous soft tissues on image 44 series 2 in the midline anterior abdominal wall which may represent the location of her technically indeterm inate. Elsewhere, no extraluminal intraperitoneal contrast material. Nodes and vessels: No retroperitoneal or mesenteric adenopathy by size criteria. Aorta and inferior vena cava are normal in size. Miscellaneous: No ventral hernias. There is extensive circumferential body wall subcutaneous edema PELVIS: Genitourinary: Bladder wall is thickened however the bladder is decompressed at this time and technic ally nonspecific. Recommend correlation with urinalysis. Miscellaneous: No inguinal hernias or adenopathy. Bones: No suspicious bony lesions. Age indeterminate L3 compression fracture with approximately 30% height loss. No vertebral body compression fractures. 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 Possible location in the midline anterior abdominal wa ll on image 44 as above, however technically indeterminate and recommend clinical correlation. No extraluminal intraperitoneal contrast material. Small bilateral pleural effusions with adjacent atelectasis, right greater left. Cardiomegaly. Dictated by: Rizwan Orta M.D. on 06/18/2016 at 13:45 Approved by: Rizwan Orta M.D. on 06/18/2016 at 13:54
--- NOTE | 2016-06-18 14:00 | NUR ---
CT Abd & pelvis w/ oral contrast completed
--- NOTE | 2016-06-18 14:01 | DRSVH ---
PROCEDURE: X-RAY CHEST ONE VIEW, PORTABLE ([id number]) INDICATIONS: shortness of breath, wheezes TECHNIQUE: One view of the chest was acquired. COMPARISON: [facility], CR, XR CHEST 1VW (PORTABLE), 06/18/2016, 6:19. [facility], CR, XR CHEST 1VW (PORTABLE), 05/31/2016, 11:20. FINDINGS: Surgical changes and devices: Endotracheal tube is seen with the tip approximately 4 cm above the car nivia. Enteric tube is present with the tip projecting in the stomach. Lungs and pleura: No pleural effusions or pneumothorax. Large right perihilar consolidative opacitie s are present. Mediastinum: Mediastinal contours appear normal. Heart size is normal. Bones and chest wall: No suspicious bony lesions. Overlying soft tissues appear unremarkable. [employer] Captain jada appearing bilateral rib fractures. IMPRESSION: Support equipment as detailed above. Right perihilar consolidation, which could represent multifocal pneumonia and/or aspiration. Recommen d clinical correlation and short interval radiographic surveillance to document resolution after silvina tment and exclude abnormal soft tissue/neoplasm. Dictated by: Rizwan Orta M.D. on 06/18/2016 at 13:58 Approved by: Rizwan Orta M.D. on 06/18/2016 at 14:00
--- NOTE | 2016-06-18 16:00 | NUR ---
Extubated to 6Lnc After SBT with sedation off, successfully extubated. Awake, alert, Ox3. See bedside CCU flowsheet for data.
[2016-06-18] MEDS: 0.9% Sodium Chloride 1,000 ML IV SCH ×2 (16:24→16:46)
[2016-06-18] MEDS: Famotidine Inj 20 MG in IV Premix 1 EACH IV SCH ×2 (16:25→20:59)
[2016-06-18] MEDS: Heparin 5,000 Unit/mL Inj SUBQ SCH ×2 (16:26→20:58)
[2016-06-18] MEDS: Cefepime Inj 2,000 MG in Dextrose 5% Minibag Plus 50 ML IV SCH (16:30)
[2016-06-18] MEDS ORDERED: Albuterol-Ipratropium 120 Spray 4 Gm Inhaler INHALATION PRN (18:15)
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
[2016-06-18] MEDS ORDERED: Albuterol 2.5 mg/3 mL Inhalation Solution NEB PRN (18:59)
[2016-06-18] MEDS: MethylprednisoLONE Sodium Succinate 40 mg/mL Inj IVPUSH SCH (20:58)
[2016-06-18] MEDS: Fluticasone-Salmererol 250-50 Inhaler INHALATION SCH (20:59)
--- NOTE | 2016-06-18 22:39 | NUR ---
Transfer Pt downgraded to PCC/Tele. He is tolerating 6L NC well. No respiratory distress noted. VSS. Pt moved to PCU # [id number]. Report given and care transfer to the receiving RN (Iman Younger) at the bedside.
[2016-06-19] VITALS (14 sets, daily range): BP systolic 94–101; BP diastolic 58–73; PULSE 70–124; RESP 18–20; O2SAT 92–98
[2016-06-19] MEDS: Chlorhexidine 0.12% 15 mL Oral Solution MT SCH ×6 (00:30→21:08)
--- NOTE | 2016-06-19 01:53 | CONS ---
[address] [address] CONSULTATION REPORT PATIENT: JAYLEN LOPEZ : 1940 MR#: [id number] ADMIT: 06/18/2016 JOB ID: [id number] CORRECTED REPORT: DATE OF SERVICE: 06/18/2016 REASON FOR CONSULTATION: Dr. Stout has asked me to see this 76-year-old man with possible abdominal wall abscess. HISTORY OF PRESENT ILLNESS: The patient was admitted from a local care facility with altered mental status and hypoxia in the setting of reported COPD and what appears to be extensive right-sided pneumonia with additional acute care kidney injury. He was noted to have a possible abscess on his anterior abdominal wall which has a clinical appearance of a small-bowel fistula with a midline incision and a punctate lesion with surrounding erythema with green drainage and expressible gas bubbles. He has had a previous history of morbid obesity, history of some sort of bariatric surgery, status post surgery for small bowel obstruction, and the CT is suggestive of a ventral hernia repair or midline closure with mesh. PAST MEDICAL HISTORY: As above. Status post pacemaker placement for unknown indications, hypertension, PTSD, SVT. All of this history is obtained from the chart and other physicians in that the patient is currently intubated and sedated. MEDICATIONS: See med reconciliation list, include albuterol, amlodipine, citalopram, diltiazem, furosemide, gabapentin, lorazepam, Zofran, prazosin, and trazodone. ALLERGIES: CODEINE, HYDROXYZINE, MEPERIDINE and MORPHINE. SOCIAL HISTORY, FAMILY HISTORY, REVIEW OF SYSTEMS: Per admission history and physical, and chart. PHYSICAL EXAMINATION: The patient appears younger than stated age, is intubated. His pulse is between 101-115, blood pressure is borderline at 92/58 to 109/70. His sclerae are clear, and he is anicteric. His abdomen is soft. He has a midline incision that is well healed. He has a punctate lesion with erythema and what appears to be very likely small-bowel contents coming out. LABORATORY DATA: White count is 8.9, hematocrit is 24.7. Chemistries on admission demonstrated a creatinine of 4.53, hyponatremia, normal LFTs, albumin of 3. IMAGING: We obtained a CT scan of the abdomen and pelvis, and this demonstrates what appears to be an enterocutaneous fistula from the small bowel at the anterior abdominal wall right next to what appears to be an intra-abdominal mesh. There does not appear to be distal obstruction. IMPRESSION/PLAN: Critically ill, 76-year-old man with what appears to be a small bowel and enteric cutaneous fistula, possibly related to intra-abdominal mesh. He clearly has a right-sided pneumonia and the question is whether this enterocutaneous fistula, which looks fairly new, is related to his sudden deterioration and status, or whether it is simply temporarily concurrent. At this point, I would address his fistula with a Wound Care consult for protecting the skin integrity, continue Zosyn for the time being, start him up on TPN for nutrition, keep him n.p.o. except meds, and General Surgery will follow him along. Given the fact that this seems to be associated with mesh, I think there is a high likelihood that he will require surgical intervention, but certainly not at this point, given his lung disease. General Surgery will continue to follow along. ADDITIONAL INFORMATION: Additionally, the patient should be on antibiotics to cover intra-abdominal infection. He has received Zosyn and vancomycin x1, with repeat doses pending his renal function. I believe that piperacillin and tazobactam is a good selection for his antibiotic coverage at this time. Addenda added by KIRSTY 06/20/16 at 8:18am
[2016-06-19] MEDS: 0.9% Sodium Chloride 1,000 ML IV SCH ×3 (01:55→17:40)
[2016-06-19] MEDS: metroNIDAZOLE Inj 500 MG in IV Premix 1 EACH IV SCH ×4 (01:57→21:08)
--- NOTE | 2016-06-19 04:26 | NUR ---
Mentation Alert and orientated. Speech is clear and pt is able to make needs known. No concerns voiced.
[2016-06-19] MEDS ORDERED: Vancomycin Serum Trough XX ONE (05:00)
[2016-06-19 05:16] LABS: BASOPHILS % (AUTO) 0 % (0-3); EOSINOPHILS % (AUTO) 0 % (0-5); MONOCYTES % (AUTO) 1.2 % (4-12); Mean Corpuscular Hemoglobin 27.9 pg (27.0-35.0); Mean Corpuscular Volume 85.1 fL (81-100); NEUTROPHILS % (AUTO) 96.9 % (40-74); Platelet Count 279 bil/L (150-400)
[2016-06-19] MEDS: LORazepam 0.5 mg Tablet PO PRN ×3 (05:41→22:46)
[2016-06-19] MEDS: Cefepime Inj 2,000 MG in Dextrose 5% Minibag Plus 50 ML IV SCH ×2 (05:41→15:44)
[2016-06-19] MEDS ORDERED: Vancomycin Inj 1,000 MG in IV Premix 1 EACH IV ONE (06:20)
--- NOTE | 2016-06-19 06:36 | PCM.PHAPRO ---
Progress Date of Service: June 19, 2016 Health care acquired Pneumonia Vancomycin management per pharmacy Indication: pneumonia Vancomycin trough goal: 15-20 Pertinent info: - SCr: 3.67 - patient with GILMAR. SCr has improved from 4.53 at admit. - Patient received one time loading dose of vancomycin 1250 mg IV one time yesterday. - WBC: 8.1 - Procalcitonin: pending - Nasal MRSA swab: neg Vancomycin random level is subtherapeutic. Will order another bolus dose. Give vancomycin 1000 mg IV one time now. Another random level has been ordered for 06/20 @ 0500. Pharmacy to continue to monitor and dose vancomycin daily. Thank you, Krista Whyte Pharmacist Krista Whyte June 19, 2016 06:36
--- NOTE | 2016-06-19 07:57 | PCM.PNMED ---
Subjective Date of Service June 19, 2016 Subjective Sleeping comfortably After awakening, C/O Lt shoulder pain which he says has been present for 8 months. Reviewed his problems and plan for probable surgery once his PNA and GILMAR have resolved/improved. Yesterday, he had requested transfer to the [place] [facility] and I mentioned that we could explore that as an option. He said " Oh I see, now it' s all about dollars and cents, you want all you can get from [facility] and [facility]". I reminded him that he was the one who repeatedly requested that we explore transferring him to the [facility] and that where he had his surgery made no financial difference to me. He then began to complain " Every time I come here for the last 2 years, I ask to go to the [facility] and you tell me that they can't take me because they don't have any room but when I ask them later the [facility] tells me they were never asked and had room". At this point I told him that if he had questions about whether we were giving him accurate information from the [facility], he might call them directly. He then told me "fuck you " and I told him our meeting was over. Exam Vital Signs Vital Sign - Last Date Time Temp Pulse Resp B/P Pulse Ox O2 Delivery O2 Flow Rate FiO2 06/19/16 04:43 36.7 91 20 99/64 98 Nasal Cannula 6.00 06/18/16 15:00 35 Intake and Output 06/18/16 06/18/16 06/19/16 Cumulative From/Thru 15:00 23:00 07:00 06/18/16 04:23 - 06/19/16 06:42 Intake Total 2861 ml 0 ml 3361 ml Output Total 1580 ml 850 ml 2430 ml Balance 1281 ml -850 ml 931 ml Intake Oral 0 ml 0 ml IV Total 2861 ml 3361 ml Output Urine Total 1500 ml 850 ml 2350 ml Gastric Drainage Total 80 ml 80 ml # Bowel Movements 0 0 Exam Pale Chronically ill man speaking in short sentences Lungs Good air movement with scattered crackles on LT, Decreased BS on Rt, NO wheezes CV Distant HTs, IIR, no m/g/r Ext LE's warm, no edema Lab and Diagnostics Result Diagram: 06/19/16 0510 06/19/16 0510 Microbiology Respiratory viral panel negative Gram stain of abdominal pus with gram variable rods MRSA nasal negative X-Rays, CTs and MRIs CT abdomen and pelvis without contrast IMPRESSION: Small amount of contrast material seen within the midline anterior abdominal wall wound, presumably leaked from a 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 Possible location in the midline anterior abdominal wall on image 44 as above, however technically indeterminate and recommend clinical correlation. No extraluminal intraperitoneal contrast material. Small bilateral pleural effusions with adjacent atelectasis, right greater left. Cardiomegaly. Chest x-ray 06/18/2016 at 0429 FINDINGS: Surgical changes and devices: Endotracheal tube is seen with the tip approximately 4 cm above the samantha. Enteric tube is present with the tip projecting in the stomach. Lungs and pleura: No pleural effusions or pneumothorax. Large right perihilar consolidative opacities are present. Mediastinum: Mediastinal contours appear normal. Heart size is normal. Bones and chest wall: No suspicious bony lesions. Overlying soft tissues appear unremarkable. Chronic appearing bilateral rib fractures. IMPRESSION: Support equipment as detailed above. Right perihilar consolidation, which could represent multifocal pneumonia and/ or aspiration. Recommend clinical correlation and short interval radiographic surveillance to document resolution after treatment and exclude abnormal soft tissue/neoplasm. Chest x-ray 06/18/2016 at 0626 12-lead ECG Atrial fibrillation with a rate of 120, ventricular premature complexes, right bundle branch block and left anterior fascicular block Assessment & Plan IMP HAP day #2 Cefepime and Vanco ET aspirate mixed jarvis. O2 requirement stable GILMAR/CKD Probably hyoperfusion and ATN d/t sepsis. Slow improvement in creatinine over noc. No indications for acute renal replacement A. 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 Will need to be resected eventually. For now needs wound care, nutrition until appropriate for surgery Morbid obesity S/P bariatric surgery H/O COPD No PFT's available, Seems well controlled for now PTSD Might partly explain some of his anger and personality issues REC Begin TPN, Providing adequate protein may be an issue if his renal function doesn't improve significantly but he needs this in order to have any chance of healing from his upcoming surgery. Abx as you are Taper steroids Mobility, PT consult Wean O2 as tolerates Resume outpatient meds, especially psych VTE Prophylaxis: Sub-Q Heparin (Unfractionated) VTE Mechanical Devices: Intermittant Pneumatic CD Resuscitation Status: CPR: Attempt Resuscitation Mcarthur,Sanjay S MD June 19, 2016 07:57 Suspected acute diastolic congestive heart failure. Present on admission. - BNP greater than 15,000 - Echo showed EF 60-65% from last hospitalization, LVEF not changed. Normal RV function, severely dilated left and right atrium - Hold Lasix Hyponatremia. Present on admission. Active -Sodium at discharge on 06/01/2016 is 136, but also low during that admission -Likely secondary to poor volume status PTSD with anxiety and depression. Present on admission. Ongoing - Recently completed [address] [facility] for same - Continue home medications have been in use at the SNF since his last hospitalization Chest pressure. Present on admission. Resolved - Possibly secondary to anxiety or A. fib - Continue current medications as above History of gastric bypass surgery and lost approximately 300 pounds. Stable - Continue to monitor Hyperglycemia. Present on admission. - A1c 5.3 - Continue with diabetic diet Hyponatremia. Not present on admission. Resolved - Continue to monitor BPH. Present on admission. Ongoing - Home doxazosin and changed to prazosin as in #4 - Continue home tamsulosin Disposition: Patient likely to return to SNF, length of hospitalization may be extensive VTE Prophylaxis: Sub-Q Heparin (Unfractionated) VTE Mechanical Devices: Intermittant Pneumatic CD Resuscitation Status: CPR: Attempt Resuscitation Sanjay Mcarthur MD June 19, 2016 07:57
[2016-06-19] MEDS: Albuterol-Ipratropium 3 mL Inhalation Solution NEB SCH ×4 (07:59→20:31)
[2016-06-19] MEDS: Famotidine Inj 20 MG in IV Premix 1 EACH IV SCH ×2 (08:20→20:46)
[2016-06-19] MEDS: MethylprednisoLONE Sodium Succinate 40 mg/mL Inj IVPUSH SCH ×2 (08:24→20:46)
[2016-06-19] MEDS ORDERED: Diltiazem CD 240 mg ER24 Capsule PO SCH (08:30)
[2016-06-19] MEDS: Heparin 5,000 Unit/mL Inj SUBQ SCH ×2 (08:33→20:47)
[2016-06-19] MEDS: Fluticasone-Salmererol 250-50 Inhaler INHALATION SCH ×2 (09:58→20:46)
--- NOTE | 2016-06-19 11:39 | PCM.PNNEPH ---
Subjective Date of Service June 19, 2016 Subjective Patient is considerably better today compared to yesterday. He is awake alert and wheezing on his own without the ventilator he denies any headache or chest pain. He still has some shortness of breath and has audible rhonchi during my evaluation. He denies any nausea or vomiting but does have some abdominal pain over the fistula which is in the midline. I have reviewed CT scan and discuss the case with Dr. Shetty of surgery. 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 In light of his poor nutritional and physical condition the goal is to do TPN for a week or so prior to surgery. His intake and output last 24 hours were 3361 in and 1580 out with 850 out already today. His hemoglobin is 7.7, sodium is 135 potassium 4.6, chloride 101 , bicarbonate 16, BUN and creatinine are improving at 78 and 3.67. His albumin is 2.7 with a Vanco 3.6. Exam Vital Signs Vital Sign - Last Date Time Temp Pulse Resp B/P Pulse Ox O2 Delivery O2 Flow Rate FiO2 06/19/16 09:51 113 06/19/16 08:40 36.4 18 97/73 97 Nasal Cannula 5.00 06/18/16 15:00 35 Intake and Output 06/18/16 06/18/16 06/19/16 Cumulative From/Thru 15:00 23:00 07:00 06/18/16 04:23 - 06/19/16 06:42 Intake Total 2861 ml 0 ml 3361 ml Output Total 1580 ml 850 ml 2430 ml Balance 1281 ml -850 ml 931 ml Intake Oral 0 ml 0 ml IV Total 2861 ml 3361 ml Output Urine Total 1500 ml 850 ml 2350 ml Gastric Drainage Total 80 ml 80 ml # Bowel Movements 0 0 Exam HEENT examination is remarkable for pale sclerae and bitemporal wasting. Neck is supple without adenopathy, thyromegaly, or jugular venous distention. He does have some mild conversational dyspnea and he does use the accessory muscles of respiration. Lungs loud rhonchi, rales, and scattered wheezes more pronounced on the right as compared to the left side. Heart is tachycardic. Abdomen is nondistended and there are diminished bowel sounds noted. There is some mild tenderness to palpation which is nonfocal. There is no rebound guarding or hepatosplenomegaly. Extremities do not show any evidence of any clubbing, cyanosis, or edema. Skin turgor is a bit diminished and there are no rashes noted. 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 Possible location in the midline anterior abdominal wall on image 44 as above, however technically indeterminate and recommend clinical correlation. No extraluminal intraperitoneal contrast material. Small bilateral pleural effusions with adjacent atelectasis, right greater left. Cardiomegaly. Chest x-ray 06/18/2016 at 0429 FINDINGS: Surgical changes and devices: Endotracheal tube is seen with the tip approximately 4 cm above the samantha. Enteric tube is present with the tip projecting in the stomach. Lungs and pleura: No pleural effusions or pneumothorax. Large right perihilar consolidative opacities are present. Mediastinum: Mediastinal contours appear normal. Heart size is normal. Bones and chest wall: No suspicious bony lesions. Overlying soft tissues appear unremarkable. Chronic appearing bilateral rib fractures. IMPRESSION: Support equipment as detailed above. Right perihilar consolidation, which could represent multifocal pneumonia and/ or aspiration. Recommend clinical correlation and short interval radiographic surveillance to document resolution after treatment and exclude abnormal soft tissue/neoplasm. Chest x-ray 06/18/2016 at 0626 12-lead ECG Atrial fibrillation with a rate of 120, ventricular premature complexes, right bundle branch block and left anterior fascicular block Plan Impression Impression #1 acute on chronic kidney injury secondary to acute pyelonephritis with Proteus #2 dehydration #3 chronic kidney disease stage III/4 #4 anion gap and non-anion gap metabolic acidosis #5 and control continuous fistula #5 hypertension with hypertensive heart disease and hypertensive nephrosclerosis. Recommendations #1 he is to be started on TPN today. I would not recommend trying to restrict protein on him as he needs protein he can tolerate. We need to continue to follow his renal function along with his intake and output. He is currently getting cefepime and I will await sensitivities. It is fully adequate for Proteus infections. Delano Grubbs DO June 19, 2016 11:38
--- NOTE | 2016-06-19 12:55 | PROG NOTE ---
[address] [address] PROGRESS NOTE PATIENT: JAYLEN LOPEZ : 1940 MR#: [id number] ADMIT: 06/18/2016 JOB ID: [id number] DATE: 06/19/2016 NOTE FOLLOWS: Patient was extubated yesterday and I have awakened him to review his surgical problem. He initially seemed a bit confused about where he was, but then blamed that on his being hard of hearing. I reviewed his history and he does tell me that he has had a hernia repair with mesh though was vague about the year and dismissed the question. He initially asked me to leave him alone and that he just wanted to watch TV, but after I have reviewed his overall situation, I explained that he had a small-bowel fistula that was likely related to mesh erosion, and that after we got him over his acute lung illness, as well as optimized his nutritional status, and controlled any gross infection that he would likely need an operation to have this repaired. His abdominal examination is much the same as it was yesterday though there is increased skin erythema due to small bowel contents. IMPRESSION AND PLAN: Patient acknowledges his situation and does agree to eventually proceed with surgery though it is not entirely clear to me that his mental status is back to baseline and/or whether his psychiatric issues are playing into our discussion today. Nonetheless, I think we need to move ahead with the plan of continuing his Zosyn for now, starting up IV TPN, and keeping him n.p.o. except for sips of liquids, getting him over his lung problems, and I think he will still likely need an operation though it may not be this hospitalization. I have put in a Wound Care consult for his skin integrity. Dr. Desir of the General Surgery service will follow up for me tomorrow.
--- NOTE | 2016-06-19 14:32 | NUR ---
Social Work: Initial Assessment Data & Assessment: See Initial Assessment. EMR reviewed. Patient is a 76 y/o male that admitted on 06/18/16 for Trilobar Pneumonia and Respiratory failure per H&P. First Assistant Manager met with patient to complete initial assessment, SW role reviewed and discharge plan discussed. Patient is alert and oriented. patient uses a hearing device to hear. Patient was unable to recall PCP and patient insurance is [facility] [employer]. Patient has no LTC benefits. Patient's Advance Directive is scanned into his chart. Patient's person to notify is his friend Chuy Wiseman- [phone]. Patient lives home alone in a one story home with 2 steps to enter, but prior to admission patient was at [facility]. Patient uses a WC at baseline, but he also has a walker. Patient has no HH history, but he has been to [facility] and rehab in the past. Patient currently has a PT evaluation pending, but he declined today due to pain. SW will continue to follow and assist patient throughout stay. SW provided phone number and plan on white board in room. SW will continue to follow. Plan:Pt will continue to follow patient for discharge planning needs. Plan evolving. Johnny Cai LMSW, JODY Addendum: 06/19/16 at 1440 by JOHNNY CAI SS Amended: Links added. Addendum: 06/19/16 at 1440 by JOHNNY TOMAS Patient's re-admit score is 5 high risk
--- NOTE | 2016-06-19 16:09 | PCM.PNMED ---
Subjective Date of Service June 19, 2016 Subjective Hospital day 2. Overnight, his mentation improved significantly to baseline normal. However, continuing to require about 6 L by nasal cannula to maintain saturations. 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 Nephrology also met with the patient, and agrees with surgical intervention if necessary. In addition, pulmonology is following. Meeting with the patient today, he reports that he has some pain/discomfort in his abdomen near area of the fistula and surrounding. He notes that the pain medications he is receiving here in the hospital are helpful, but to wear off somewhat quickly. He otherwise denies complaints today. Focused ROS otherwise negative except as noted above. Exam Vital Signs Vital Sign - Last Date Time Temp Pulse Resp B/P Pulse Ox O2 Delivery O2 Flow Rate FiO2 06/19/16 12:30 36.5 111 20 101/69 96 Nasal Cannula 5.00 06/18/16 15:00 35 Intake and Output 06/18/16 06/18/16 06/19/16 Cumulative From/Thru 15:00 23:00 07:00 06/18/16 04:23 - 06/19/16 06:42 Intake Total 2861 ml 0 ml 3361 ml Output Total 1580 ml 850 ml 2430 ml Balance 1281 ml -850 ml 931 ml Intake Oral 0 ml 0 ml IV Total 2861 ml 3361 ml Output Urine Total 1500 ml 850 ml 2350 ml Gastric Drainage Total 80 ml 80 ml # Bowel Movements 0 0 Exam General/Constitutional: Well developed, Well nourished, appropriately interactive today. No acute distress, but does appear mildly to moderately uncomfortable Head / Eyes: Atraumatic, Normocephalic. Pupils are equal and reactive to light , with normal extraocular movements. Sclerae are anicteric, conjunctiva are not injected Neck: Supple, Non-tender, Full range of motion Resp: Clear bilaterally with diffuse rales. Normal respiratory effort on supplemental oxygen CV: Regular (please note sinus tachycardia overnight), systolic ejection murmur 2/6. Radial pulses are 2+ bilaterally Abdomen: Soft, mildly tender around the fistula and surrounding area, No guarding, No rebound, No distention Extremities: Vascular intact, Neuro intact, No swelling, No tenderness. No peripheral edema appreciated Skin: Warm, Dry, No cyanosis, erythema of anterior abdomen midline, approximately 5x8cm, with an elevation midline topped by a draining wound/ fistula Neurologic: Grossly intact today Psych: Appropriate mood and affect IVs and Medications Medications Reviewed: Medications were reviewed in detail Lab and Diagnostics Laboratory Tests Test 06/19/16 05:10 White Blood Count 8.1th/mm3 (3.8-10.1) Red Blood Count 2.76mil/mm3 (4.40-5.80) Hemoglobin 7.7g/dL (13.8-17.2) Hematocrit 23.5% (41.0-50.0) Mean Corpuscular Volume 85.1fL (81-100) Mean Corpuscular Hemoglobin 27.9pg (27.0-35.0) Mean Corpuscular Hemoglobin Concent 32.8% (32.0-37.0) Red Cell Distribution Width 15.6% (12.3-15.4) Platelet Count 279bil/L (150-400) Neutrophils (%) (Auto) 96.9% (40-74) Lymphocytes (%) (Auto) 1.7% (14-46) Monocytes (%) (Auto) 1.2% (4-12) Eosinophils (%) (Auto) 0% (0-5) Basophils (%) (Auto) 0% (0-3) Sodium Level 135mEq/L (134-144) Potassium Level 4.6mEq/L (3.5-5.2) Chloride Level 101mEq/L (97-108) Carbon Dioxide Level 16mmol/L (18-29) Blood Urea Nitrogen 78mg/dL (8-27) Creatinine 3.67mg/dL (0.76-1.27) Estimat Glomerular Filtration Rate 17mL/min (>59) Glucose Level 155mg/dL (60-99) Calcium Level 8.0mg/dL (8.5-10.1) Total Bilirubin 0.3mg/dL (0.0-1.2) Aspartate Amino Transf (AST/SGOT) 18U/L (0-50) Alanine Aminotransferase (ALT/SGPT) 8U/L (0-44) Alkaline Phosphatase 51U/L (25-160) Total Protein 5.1g/dL (6.4-8.4) Albumin 2.7g/dL (3.4-5.0) Triglycerides Level 33mg/dL (0-149) Procalcitonin 0.40ng/mL (0.00-0.08) Random Vancomycin Level 8.6ug/mL Rx Result Diagram: 06/19/16 0510 06/19/16 0510 Microbiology Respiratory viral panel positive for RSV (please note this was positive in 2016) Gram stain of abdominal pus with gram variable rods with ID and sensitivity to follow Preliminary urine culture showing probable Proteus * Please note: Urine culture 12/16/13 showed velazquez-resistant Proteus mirabilis MRSA nasal negative Strep urine antigen negative Sputum culture shows normal jarvis X-Rays, CTs and MRIs CT abdomen and pelvis without contrast 06/18/16 IMPRESSION: Small amount of contrast material seen within the midline anterior abdominal wall wound, presumably leaked from a 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 Possible location in the midline anterior abdominal wall on image 44 as above, however technically indeterminate and recommend clinical correlation. No extraluminal intraperitoneal contrast material. Small bilateral pleural effusions with adjacent atelectasis, right greater left. Cardiomegaly. Chest x-ray 06/18/2016 at 0429 IMPRESSION: Support equipment as detailed above. Right perihilar consolidation, which could represent multifocal pneumonia and/ or aspiration. Recommend clinical correlation and short interval radiographic surveillance to document resolution after treatment and exclude abnormal soft tissue/neoplasm. 12-lead ECG 06/18/16 Atrial fibrillation with a rate of 120, ventricular premature complexes, right bundle branch block and left anterior fascicular block Cardiac Echo Impressions Please note following echo is from 05/23/16: Interpretation Summary Left ventricular systolic function is normal without focal wall motion abnormalities. The ejection fraction is estimated to be 60-65%. LVEF has not changed since priro study. Left ventricular wall thickness is mild-moderately increased. The right ventricle is at the upper limits of normal in size. The right ventricular systolic function is normal. Right ventricular systolic pressure is estimated to be 20 mmHg plus the clinically estimated CVP which cannot be estimated on this exam. The left atrium is severely dilated. The right atrium is severely dilated. There is mild mitral regurgitation. There is no other significant valvular heart disease. The aortic root is mildly dilated. The ascending aorta is mildly enlarged. The aortic arch is mildly enlarged. Assessment & Plan 76-year-old male with past medical history of hypertension, PTSD, depression, pacemaker placement and history of pneumonia admitted for shortness of breath and cough concern for pneumonia. Hospital day 2. Acute on chronic hypoxic respiratory failure. Present on admission. - extensive right lung widespread consolidation on chest x-ray - Empiric cefepime and Flagyl, and vancomycin were initiated at time of admission. (Vancomycin stopped 06/19 given negative MRSA screen) - microbiological workup as noted above - Patient is not on home O2, intubated a.m. 06/18 in the emergency room, (and extubated 06/18 afternoon at 1540) - Hold Lasix for now given GILMAR - Solu-Medrol 40 mg IV every 12 hours in the setting of COPD (possible exacerbation). Consider switching to prednisone 40 mg daily tomorrow - DuoNeb's when necessary Healthcare associated pneumonia. Presumed acute. Present on admission. -Cefepime 2 g IV every 12 hours, Flagyl 500 mg IV every 6 hours (please note again vancomycin was stopped 06/19). Otherwise these antibiotics will continue -Appreciate the expertise of the pulmonary service in the care of this patient -Continue empiric antibiotic coverage given slowly increasing pro-calcitonin -Please note RSV positive -Continue with supportive treatment Enterocutaneous fistula, unknown chronicity. Present on admission. - Surgery has been consulted, and we appreciate their expertise in the care of this patient. -Suspect associated with previous abdominal surgery involving mesh. -Some suspicion that he will proceed to the OR, but deferred surgery in that regard. -Wound care to evaluate his fistula, and continue in his evaluation throughout hospitalization -We will initiate TPN -Nothing by mouth except for medications, sips, and ice chips -Pain control with narcotic medication by mouth (consideration for IV if unable to tolerate by mouth) Abdominal wall cellulitis, presumed acute. Present on admission -Associated with enterocutaneous fistula -Empiric antibiotics as noted -Surgical intervention (possible) as noted GILMAR in the setting of CKD stage IV. Present on admission. -Suspect baseline closer to 1.7 -CKD likely secondary to his hypertension (nephrosclerosis - Patient was discharged last on 06/01/[address] ([facility]) with creatinine of 2.92, creatinine at time of admission was 4.53 - Renal U/S on last admission did not show a cause for renal insufficiency - Nephrology following, and we appreciate their expertise - Hold Lasix as noted - We will reduce Normal saline to 100 mils per hour IV (consideration for stopping altogether tomorrow a.m. as we get TPN started) Anion gap metabolic acidosis. Acute, present on admission. -Anion gap today is 20 after correction for albumin -Likely associated with GILMAR, potential contributions from infections as noted and/or respiratory failure -Ingestions seem less likely at this time, but we will check aspirin and Tylenol levels -Continue to monitor labs Bacteriuria, unclear if represents acute UTI versus colonization. Present on admission. -Please note the patient has history of velazquez resistant Proteus mirabilis in 2013 -Please note that the patient's urine culture is growing probable Proteus -Current cefepime and Flagyl regimen ineffective against suspected velazquez resistant microbe -Continue patient in full contact precautions. * Consideration for involving infectious disease tomorrow Atrial fibrillation with rapid ventricular response. Acute RVR on chronic disease. Present on admission. -Patient without home medications the morning of day of admission, and is infectious/hypoxic respiratory failure presentation may have precipitated RVR. -Fluid replacement as above -Hold off on home diltiazem as he is relatively rate controlled off of medication at this time. We are also holding based on his borderline low blood pressures. * Consideration for restarting diltiazem (perhaps in the IV formulation) if rate worsens, and BP drops. -Consideration for anticoagulation as the patient's Pa Vasc score is 2-3 ( hypertension, age, question of CHF). Question of acute diastolic congestive heart failure was raised in previous notes. - BNP greater than 15,000. Admission note mentioned JVD present. This would indicate clinical CHF. - Echo from last hospitalization as noted above (please note the diastolic function could not be ascertained at that time as the patient was in atrial fibrillation) - Hold Lasix as noted above -Consideration for medication optimization (beta nivia, zaida/ARB, etc.) once more stable clinically with regards to his abdominal process -IVF as noted above Hyponatremia. Present on admission. Resolved -Was 124 at time of admission, with rapid correction to 135 on 06/19 * Potentially contributing to patient's altered mentation at time of presentation -Sodium at discharge on 06/01/2016 was 136 -Likely secondary to hypovolemia given response to isotonic fluids. -Continue to monitor closely Encephalopathy of uncertain etiology. Present on admission. Resolved -Likely multifactorial in this gentleman with acute GILMAR/uremia, hypoxemia, hypoperfusion in the setting of volume depletion and clinical CHF, and possible contribution from significant outpatient medications (gabapentin, trazodone, Ativan). -Continue to monitor closely PTSD with anxiety and depression, chronic - Recently completed 2 week stay at [facility] in [place] for same - Continue home medications have been in use at the SNF since his last hospitalization * Gabapentin, prazosin, trazodone, melatonin, citalopram, Ativan Patient has a pacemaker, chronic. Uncertain initial indication per available records. -We will continue to monitor on telemetry as noted above Chest pressure. Present on admission. Resolved - Possibly secondary to anxiety or A. fib History of gastric bypass surgery and lost approximately 300 pounds. - Continue to monitor (especially as surgery is contemplating intervention for suspected mesh involvement) -TPN and nothing by mouth as noted above Hyperglycemia, acute. Present on admission. - A1c 5.3 last admission, repeat pending -No need for intervention at this time given patient's bedside blood glucose readings BPH, chronic - Continue home tamsulosin PRN MEDICATIONS - Acetaminophen as needed for mild pain/fever/headache - Bowel regimen as needed - Antiemetic as needed Patient is admitted under inpatient status with expected length of stay greater than 2 midnights due to severity of presenting symptoms, risk of adverse event, and complexity of treatment plan. Disposition: Anticipate several days prior to full determination of disposition. Likely to return to [facility] at time of discharge. Pain Evaluation: Adequate Pain Control GI Prophylaxis: H2 nivia VTE Prophylaxis: Sub-Q Heparin (Unfractionated) VTE Mechanical Devices: Intermittant Pneumatic CD Resuscitation Status: CPR: Attempt Resuscitation Attending Statement The patient was seen and examined together with Dr. Vallejo on 06/19/2016 and I agree with the history, exam and plan as outlined in the note above. . Tj Phan DO June 19, 2016 16:09 Sanjay Stout MD June 19, 2016 18:09
[2016-06-19] MEDS ORDERED: MeTOProlol 1 mg/mL 5 mL Inj IVPUSH SCH (18:30)
--- NOTE | 2016-06-19 19:46 | NUR ---
abdominal drainage Dressing on abdomen was soaked after around 4 hours. Light green/yellow copious drainage. Surrounding skin is red, blanchable. Cleansed with NS, covered with gauze, and secured with tape. Pt states no pain but is tender to touch. Pt has been NPO for entire shift except for ice chips and meds.
[2016-06-20] VITALS (11 sets, daily range): BP systolic 90–110; BP diastolic 57–65; PULSE 74–120; RESP 16–20; O2SAT 90–98
[2016-06-20] MEDS: Chlorhexidine 0.12% 15 mL Oral Solution MT SCH ×6 (00:30→20:57)
[2016-06-20] MEDS: metroNIDAZOLE Inj 500 MG in IV Premix 1 EACH IV SCH ×2 (02:22→09:18)
[2016-06-20] MEDS: Diltiazem CD 240 mg ER24 Capsule PO SCH (02:40)
--- NOTE | 2016-06-20 03:07 | NUR ---
Pain/dressing/HR Pt reporting pain to right shoulder and abdomen rated 8/10, given 5mg Oxycodone with relief for 2 hrs then pt was given Tylenol and was able to sleep until about 0230. Dressing to abdomen has been changed x1 so far, cleaned with NS, bright red in color, wound care to see today, Gauze and tape applied. Pt HR trending up into 120-140, paged due to lower BP 94/58. changed order to Cardizem CD 240 mg daily (first dose now). Pt had been taking this medication at home. Upon waking pt HR jumped into 160s per surveillance system monitor. Cardizem given. Continue to monitor. Addendum: 06/20/16 at 0503 by LUCRECIA SNYDER RN HR Pt telemetry now AFib 100s-110s.
[2016-06-20] MEDS: Cefepime Inj 2,000 MG in Dextrose 5% Minibag Plus 50 ML IV SCH (03:54)
[2016-06-20] MEDS: 0.9% Sodium Chloride 1,000 ML IV SCH ×2 (04:29→09:32)
[2016-06-20 04:52] LABS: Magnesium 1.8 mg/dL (1.6-2.6); Phosphorus 6.7 mg/dL (2.5-4.9)
[2016-06-20] MEDS ORDERED: Vancomycin Serum Trough XX ONE (05:00)
[2016-06-20] MEDS: Albuterol-Ipratropium 3 mL Inhalation Solution NEB SCH ×4 (08:05→19:45)
--- NOTE | 2016-06-20 09:08 | PCM.PNSURG ---
Subjective Visit Information: Reason for Visit Trilobar Pneumonia, Respiratory Failure Surgery/Surgery Date Post-Op Day # Date of Admission: June 18, 2016 at 06:01 Hospital Day # Subjective: pt unable to provide detailed hx of prior surgery, except some at [facility], no n/v, unable to tell me how long he's had this abd wound Objective Objective Awake in bed, no distress Abd: midabodmen with small opening with drainage of greenish fluid, and a visible stitch thru the opening, surrounding erythema about 8-10 cm wide, mildly tender Vital Sign- Last 8 Hours Date Time Temp Pulse Resp B/P Pulse Ox O2 Delivery O2 Flow Rate FiO2 06/20/16 08:05 88 20 92 Room Air 06/20/16 04:52 36.4 120 16 110/61 94 Nasal Cannula 5.00 06/20/16 02:29 105 90/57 Intake and Output- Last 8 Hour 06/20/16 Cumulative From/Thru 07:00 06/18/16 04:23 - 06/20/16 06:04 Intake Total 1300 ml 6861 ml Output Total 600 ml 3730 ml Balance 700 ml 3131 ml Intake Oral 0 ml 100 ml IV Total 1300 ml 6761 ml Output Urine Total 600 ml 3650 ml Gastric Drainage Total 80 ml # Bowel Movements 0 0 Result Diagram: 06/20/16 0400 06/20/16 0400 Assessment & Plan Impression 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
[2016-06-20] MEDS: Fluticasone-Salmererol 250-50 Inhaler INHALATION SCH ×2 (09:17→21:00)
[2016-06-20] MEDS: MethylprednisoLONE Sodium Succinate 40 mg/mL Inj IVPUSH SCH ×2 (09:19→20:58)
[2016-06-20] MEDS: Heparin 5,000 Unit/mL Inj SUBQ SCH ×2 (09:31→20:59)
--- NOTE | 2016-06-20 10:31 | NUR ---
NUTRITION FOLLOW UP: ASSESS: 76 YO male readmitted with sepsis, pneumonia, pyelonephritis, and acute on chronic kidney injury in patient with chronic stage 4 kidney disease. 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 TPN to start today. Pt extubated 06/18. Per notes, nephrology recommends not restricting protein. 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 DIET: NPO. LABS: Reviewed. Na 133, BUN 72, Cr 3.29, Ca 8.2, Glu 150, Ca 6.7, (06/19): Alb 2.7, (06/18): PAB 7 MEDICATIONS: Reviewed. Solu-medrol. GI: No BM noted. SKIN: Surgery consult pending related to potential abdominal wall abscess with possible enteric fistula. ANTHROPOMETRICS: Current Wt: 83.6 kg, BMI: 26.4 kg/m2. IBW: 75.45 kg (112% IBW) ESTIMATED NEEDS (CKD/FISTULA): Calories: 4848-3358 kcal/day (25-35 kcal/kg BW) Protein: 67-100 g/day (0.8-1.2 g/kg BW) NUTRITION DIAGNOSIS: 1) Inadequate oral intake related to inability to consume sufficient energy, as evidenced by NPO status.---PERSISTS. 2) Increased nutrient needs related to wound, acute on chronic stage 4 renal disease, as evidenced by multiple electrolyte abnormalities, nephrology and surgery consults.---PERSISTS. INTERVENTION: 1) Recommend initial TPN of 200 g Dex, 40 g Lipids, 60 g AA to provide 1320 kcal, 60 g protein; meeting 63% calorie 90% protein needs. DIR: 1.66 mg/kg/min. Recommendations given to Pharmacy. 2) Once TPN tolerance established, slowly advance to 400 g Dex, 60 g lipids, 85 g protein, providing 2300 kcal, 85 g protein; meeting 100% calorie/protein needs. DIR: 3.32 mg/kg/min. MONITOR/EVALUATE: NPO status, labs, TPN tolerance/advance, GI/nutrition status. Follow per high nutrition risk guidelines.
[2016-06-20] MEDS ORDERED: TPN Per Pharmacist XX ONE (10:54)
[2016-06-20] MEDS: Famotidine Inj 20 MG in IV Premix 1 EACH IV SCH (11:09)
--- NOTE | 2016-06-20 12:09 | PCM.CONPHA ---
Subjective Health care acquired Pneumonia Reason for Pharmacy Consult: TPN Management Assessment/Plan Assessment/Plan PARENTERAL NUTRITION ORDERS 1 - Standard Hang Time: 2100 Substrates Total kcal: 1320 AMINO ACIDS 60 g DEXTROSE 200 g Total Volume (mL): 1500 LIPIDS 40 g Sterile Water for Injection QS mL To Infuse Over (hrs): 24 Total Volume 1500 mL At at a rate of (mL/hr): 63 Additives Sodium Chloride 40 mEq "typical" daily requirements Sodium Acetate 40 mEq Sodium 50-120mEq Potassium Chloride 60 mEq Potassium 60-120mEq Potassium Phosphate mEq Phosphate 20-40mEq Calcium Gluconate 12 mEq Magnesium 8-32mEq Magnesium Sulfate 16 mEq Calcium 9-22mEq Acetate* 80-120mEq Chloride* 80-120mEq Regular Insulin units *Depending on acid-base status Famotidine mg Multivitamins 1 std dose Insulin Regimen Trace Elements 1 std dose none Thiamine 100 mg Regular Low Intensity Subcut Folic Acid 1 mg Regular Medium Intensity Subcut Ascorbic Acid mg Regular High Intensity Subcut Regular Insulin Infusion Other: Special Instructions: To be infused via central line only. For delay or inturruption of TPN contact the pharmacist for alternative replacement solution. Signature Date: JAYLEN LOPEZ [address] [facility] Will recommend that current maintenance fluids be stopped once TPN is started this evening. Pt does show signs of renal insufficiency. Estimated needs of a little over 1600ml/day. Jose Oconnor, PharmD Jose Oconnor June 20, 2016 12:09
[2016-06-20] MEDS ORDERED: Ertapenem Inj 1,000 MG in 0.9% Sodium Chloride 50 ML IV ONE (12:30)
--- NOTE | 2016-06-20 13:33 | NUR ---
Evaluation completed. Please go to "Notes" then click on "Assessments and Notes" (bottom left corner of screen). Then select appropriate discipline tab on top of screen.
--- NOTE | 2016-06-20 13:44 | NUR ---
Called and left message for Kirti in patient access at [facility] [phone]. Let her know patient is here and we are needing bed. Updated INFORMATION ASSISTANT
--- NOTE | 2016-06-20 14:12 | PCM.PNNEPH ---
Subjective Date of Service June 20, 2016 Subjective (+) Afib with RVR. (+) starving, wants to eat. Serum creatinine continues to improve. Exam Vital Signs Vital Sign - Last Date Time Temp Pulse Resp B/P Pulse Ox O2 Delivery O2 Flow Rate FiO2 06/20/16 13:29 36.3 18 101/59 93 Nasal Cannula 2.00 06/20/16 12:24 74 06/18/16 15:00 35 Intake and Output 06/19/16 06/19/16 06/20/16 Cumulative From/Thru 15:00 23:00 07:00 06/18/16 04:23 - 06/20/16 06:04 Intake Total 2200 ml 1300 ml 6861 ml Output Total 700 ml 600 ml 3730 ml Balance 1500 ml 700 ml 3131 ml Intake Oral 100 ml 0 ml 100 ml IV Total 2100 ml 1300 ml 6761 ml Output Urine Total 700 ml 600 ml 3650 ml Gastric Drainage Total 80 ml # Bowel Movements 0 0 0 Exam General: AAOx3, anxious. Eyes: PERRLA, EOMI, anicteric sclera, noninjected conjunctiva. HEENT: Normocephalic, atraumatic. mild pallor, no icteric sclerae. Neck: Supple with full range of motion. Cardiovascular: irregular rhythm, variable S1, S2. Pulmonary: coarse crackles B/L, occasional expiratory wheezing noted. Abdomen: Soft, tenderness at midabdomen, (+) greenish drainage. Extremities: no edema, cyanosis, no rash. : Elizondo cath in place, yellowish urine. Lab and Diagnostics Result Diagram: 06/20/16 0400 06/20/16 0400 Microbiology Respiratory viral panel positive for RSV (please note this was positive in 2016) Gram stain of abdominal pus with gram variable rods with ID and sensitivity to follow Preliminary urine culture showing probable Proteus * Please note: Urine culture 12/16/13 showed velazquez-resistant Proteus mirabilis MRSA nasal negative Strep urine antigen negative Sputum culture shows normal jarvis X-Rays, CTs and MRIs CT abdomen and pelvis without contrast 06/18/16 IMPRESSION: Small amount of contrast material seen within the midline anterior abdominal wall wound, presumably leaked from a 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 Possible location in the midline anterior abdominal wall on image 44 as above, however technically indeterminate and recommend clinical correlation. No extraluminal intraperitoneal contrast material. Small bilateral pleural effusions with adjacent atelectasis, right greater left. Cardiomegaly. Chest x-ray 06/18/2016 at 0429 IMPRESSION: Support equipment as detailed above. Right perihilar consolidation, which could represent multifocal pneumonia and/ or aspiration. Recommend clinical correlation and short interval radiographic surveillance to document resolution after treatment and exclude abnormal soft tissue/neoplasm. 12-lead ECG 06/18/16 Atrial fibrillation with a rate of 120, ventricular premature complexes, right bundle branch block and left anterior fascicular block Cardiac Echo Impressions Please note following echo is from 05/23/16: Interpretation Summary Left ventricular systolic function is normal without focal wall motion abnormalities. The ejection fraction is estimated to be 60-65%. LVEF has not changed since priro study. Left ventricular wall thickness is mild-moderately increased. The right ventricle is at the upper limits of normal in size. The right ventricular systolic function is normal. Right ventricular systolic pressure is estimated to be 20 mmHg plus the clinically estimated CVP which cannot be estimated on this exam. The left atrium is severely dilated. The right atrium is severely dilated. There is mild mitral regurgitation. There is no other significant valvular heart disease. The aortic root is mildly dilated. The ascending aorta is mildly enlarged. The aortic arch is mildly enlarged. Plan Impression 1. GILMAR on CKD due to ATN/UTI. h/o urinary retention. 2. Enterocutaneous fistula. 3. UTI. 4. High anion gap and non gap metabolic acidosis. 5. COPD. 6. Afib. 7. PTSD. 8. Hypertension with hypertensive nephrosclerosis. 9. Hyperphosphatemia Plan: Start TPN. Recommend low phos concentration. D/c IVF. Anemia w/u. Jose Valles MD June 20, 2016 14:12
--- NOTE | 2016-06-20 15:25 | NUR ---
Wound Note Wound orders for help with skin integrity received, patent seen at bedside. 76 yo male admitted to [facility] with pneumonia. Patient presents with a draining fistula at his abdomen approx 5 inches above his umbilicus. Fistula has a non absorbable suture sticking out of it, fistula opening itself is 0.4 cms and is draining moderate amount of thin greenish fluid, i believe that this drainage may be partly responsible for his reddened perifistula skin. I applied skin prep and stoma powder to control this and placed a high output drainable fistula pouch on him to collect drainage and spare his skin further insult, left an extra replacement bag in patients room for nursing in case appliance were to fail or if patient inadvertently removed it. Will follow up as needed.
--- NOTE | 2016-06-20 16:19 | NUR ---
Social Work Note: Continued Discharge Planning Data& Assessment: Per MD pt is not medically ready for discharge at this time. Pt may require surgery for his fistula. Pt TPN started tonight. laboratory courier placed fistula pouch today. Per MD in morning rounds, pt will likely require SNF again at time of discharge. SW spoke with [facility] and confirmed they will accept pt back to their facility when medically ready for continued rehab. Access provided. SW to continue to follow. Plan: Anticipate discharge to [facility] when medically ready. SW to continue to follow for MD recommendations and medical progression. NATALIE Hernadez
--- NOTE | 2016-06-20 16:55 | PCM.PNMED ---
Subjective Date of Service June 20, 2016 Subjective Mr. Benítez is a 76 year old male with a history of COPD, multiple episodes of pneumonia, Afib with RVR, chronic renal failure, PTSD, pacemaker, and HTN, hospitalized here from 05/21-06/01/16 with respiratory failure and hospitalized at the [facility] PTSD unit in [place] for 2 weeks with discharge on 05/19/16, who presented to the ER via EMS after staff at [facility] found him unresponsive with decreased O2 saturation just prior to arrival. Today is hospital day 3. Overnight, patient had atrial fibrillation in 160s bpm and low blood pressure. Medication switched to diltiazem ER 240 mg and rate decreased to 100-110s bpm. Today, he continues to have a productive cough and abdominal pain and feels fatigued and generalized weakness. He is concerned about his pet dogs and finances. Exam Vital Signs Vital Sign - Last Date Time Temp Pulse Resp B/P Pulse Ox O2 Delivery O2 Flow Rate FiO2 06/20/16 13:29 36.3 18 101/59 93 Nasal Cannula 2.00 06/20/16 12:24 74 06/18/16 15:00 35 Intake and Output 06/19/16 06/19/16 06/20/16 Cumulative From/Thru 15:00 23:00 07:00 06/18/16 04:23 - 06/20/16 06:04 Intake Total 2200 ml 1300 ml 6861 ml Output Total 700 ml 600 ml 3730 ml Balance 1500 ml 700 ml 3131 ml Intake Oral 100 ml 0 ml 100 ml IV Total 2100 ml 1300 ml 6761 ml Output Urine Total 700 ml 600 ml 3650 ml Gastric Drainage Total 80 ml # Bowel Movements 0 0 0 Exam General/Constitutional: Well developed, Well nourished, appropriately interactive today. No acute distress, but does appear mildly to moderately uncomfortable Head / Eyes: Atraumatic, Normocephalic. Normal extraocular movements. Sclerae are anicteric, conjunctiva are not injected Neck: Supple with full range of motion Resp: Clear bilaterally with diffuse rales, worse at lung bases. Normal respiratory effort on supplemental oxygen CV: Irregularly irregular, systolic ejection murmur 2/6. Radial pulses are 2+ bilaterally Abdomen: Soft, mildly tender around the fistula and surrounding area, No guarding, No rebound, No distention Extremities: No swelling, No tenderness. No peripheral edema appreciated Skin: Warm, Dry, No cyanosis, erythema of anterior abdomen midline, approximately 5x8cm, with an elevation midline topped by a draining wound/ fistula Neurologic: Grossly intact today Psych: Anxious about psychosocial stressors today. Appropriate affect IVs and Medications Medications Reviewed: Medications were reviewed in detail Lab and Diagnostics Result Diagram: 06/20/16 0400 06/20/16 0400 Microbiology Respiratory viral panel positive for RSV (please note this was positive in 2016) Gram stain of abdominal pus with gram variable rods with ID and sensitivity to follow Preliminary urine culture showing probable Proteus * Please note: Urine culture 12/16/13 showed velazquez-resistant Proteus mirabilis MRSA nasal negative Strep urine antigen negative Sputum culture shows normal jarvis X-Rays, CTs and MRIs CT abdomen and pelvis without contrast 06/18/16 IMPRESSION: Small amount of contrast material seen within the midline anterior abdominal wall wound, presumably leaked from a 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 Possible location in the midline anterior abdominal wall on image 44 as above, however technically indeterminate and recommend clinical correlation. No extraluminal intraperitoneal contrast material. Small bilateral pleural effusions with adjacent atelectasis, right greater left. Cardiomegaly. Chest x-ray 06/18/2016 at 0429 IMPRESSION: Support equipment as detailed above. Right perihilar consolidation, which could represent multifocal pneumonia and/ or aspiration. Recommend clinical correlation and short interval radiographic surveillance to document resolution after treatment and exclude abnormal soft tissue/neoplasm. 12-lead ECG 06/18/16 Atrial fibrillation with a rate of 120, ventricular premature complexes, right bundle branch block and left anterior fascicular block Cardiac Echo Impressions Please note following echo is from 05/23/16: Interpretation Summary Left ventricular systolic function is normal without focal wall motion abnormalities. The ejection fraction is estimated to be 60-65%. LVEF has not changed since priro study. Left ventricular wall thickness is mild-moderately increased. The right ventricle is at the upper limits of normal in size. The right ventricular systolic function is normal. Right ventricular systolic pressure is estimated to be 20 mmHg plus the clinically estimated CVP which cannot be estimated on this exam. The left atrium is severely dilated. The right atrium is severely dilated. There is mild mitral regurgitation. There is no other significant valvular heart disease. The aortic root is mildly dilated. The ascending aorta is mildly enlarged. The aortic arch is mildly enlarged. Assessment & Plan 76-year-old male with past medical history of hypertension, PTSD, depression, pacemaker placement and history of pneumonia admitted for shortness of breath and cough concern for pneumonia. Hospital day 3. Acute on chronic hypoxic respiratory failure. Present on admission. - extensive right lung widespread consolidation on chest x-ray - Empiric cefepime and Flagyl, and vancomycin were initiated at time of admission. (Vancomycin stopped 06/19 given negative MRSA screen) - microbiological workup as noted above - Patient is not on home O2, intubated a.m. 06/18 in the emergency room, (and extubated 06/18 afternoon at 1540) - Hold Lasix for now given acute kidney injury - Solu-Medrol 40 mg IV every 12 hours in the setting of COPD (possible exacerbation). Consider switching to prednisone 40 mg daily tomorrow morning. - DuoNebs as needed - Consider discussing possible thoracentesis with IR tomorrow if patient will not be able to be transferred to a [place] facility Healthcare associated pneumonia. Presumed acute. Present on admission. -Cefepime 2 g IV every 12 hours, Flagyl 500 mg IV every 6 hours (please note again vancomycin was stopped 06/19). Otherwise these antibiotics will continue -Appreciate the expertise of the pulmonary service in the care of this patient -Continue empiric antibiotic coverage given slowly increasing pro-calcitonin -Please note RSV positive -Continue with supportive treatment -Infectious disease consulted. Their time and recommendations are appreciated. Enterocutaneous fistula, unknown chronicity. Present on admission. - Surgery has been consulted, and we appreciate their expertise in the care of this patient. -Suspect associated with previous abdominal surgery involving mesh. -Some suspicion that he will proceed to the OR, but deferred surgery in that regard. -Wound care to evaluate his fistula, and continue in his evaluation throughout hospitalization -We will initiate TPN, pharmacy consulted, their time and recommendations appreciated. -Nothing by mouth except for medications, sips, and ice chips -Pain control with narcotic medication by mouth (consideration for IV if unable to tolerate by mouth) -Discontinue normal saline IV fluids once TPN has been initiated -Discussing with aids social worker possible transfer to [place] for optimal continuity of care for patient Abdominal wall cellulitis, presumed acute. Present on admission -Associated with enterocutaneous fistula -Empiric antibiotics as noted -Surgical intervention (possible) as noted GILMAR in the setting of CKD stage IV. Present on admission. -Suspect baseline closer to 1.7 -CKD likely secondary to his hypertension (nephrosclerosis) - Patient was discharged last on 06/01/2016 (from [facility]) with creatinine of 2.92, creatinine at time of admission was 4.53 - Renal U/S on last admission did not show a cause for renal insufficiency - Nephrology following, and we appreciate their expertise - Hold Lasix as noted - We will reduce Normal saline to 100 mils per hour IV and discontinue when TPN started Anion gap metabolic acidosis. Acute, present on admission. -Anion gap today is 20 after correction for albumin -Likely associated with GILMAR, potential contributions from infections as noted and/or respiratory failure -Ingestions seem less likely at this time, but we will check aspirin and Tylenol levels -Continue to monitor labs Bacteriuria, unclear if represents acute UTI versus colonization. Present on admission. -Please note the patient has history of velazquez resistant Proteus mirabilis in 2013 -Please note that the patient's urine culture is growing probable Proteus -Current cefepime and Flagyl regimen ineffective against suspected velazquez resistant microbe -Continue patient in full contact precautions. * Infectious disease consulted today. Atrial fibrillation with rapid ventricular response. Acute RVR on chronic disease. Present on admission. -Patient without home medications the morning of day of admission, and is infectious/hypoxic respiratory failure presentation may have precipitated RVR. -Fluid replacement as above -Resumed home diltiazem last night due to low blood pressure and increased rate -Metoprolol tartrate 5 mg IV pushes available for total of 3 doses -Consideration for anticoagulation as the patient's Pa Vasc score is 2-3 ( hypertension, age, question of CHF). -Continue to monitor on telemetry Question of acute diastolic congestive heart failure was raised in previous notes. - BNP greater than 15,000. Admission note mentioned JVD present. This would indicate clinical CHF. - Echo from last hospitalization as noted above (please note the diastolic function could not be ascertained at that time as the patient was in atrial fibrillation) - Hold Lasix as noted above -Consideration for medication optimization (beta nivia, zaida/ARB, etc.) once more stable clinically with regards to his abdominal process -IVF as noted above Hyponatremia. Present on admission. Resolved -Was 124 at time of admission, with rapid correction to 135 on 06/19 * Potentially contributing to patient's altered mentation at time of presentation -Sodium at discharge on 06/01/2016 was 136 -Likely secondary to hypovolemia given response to isotonic fluids. -Continue to monitor closely Encephalopathy of uncertain etiology. Present on admission. Resolved -Likely multifactorial in this gentleman with acute GILMAR/uremia, hypoxemia, hypoperfusion in the setting of volume depletion and clinical CHF, and possible contribution from significant outpatient medications (gabapentin, trazodone, Ativan). -Continue to monitor closely PTSD with anxiety and depression, chronic - Recently completed 2 week stay at [facility] for same - Continue home medications have been in use at the SNF since his last hospitalization * Gabapentin, prazosin, trazodone, melatonin, citalopram, Ativan Patient has a pacemaker, chronic. Uncertain initial indication per available records. -We will continue to monitor on telemetry as noted above Chest pressure. Present on admission. Resolved - Possibly secondary to anxiety or A. fib History of gastric bypass surgery and lost approximately 300 pounds. - Continue to monitor (especially as surgery is contemplating intervention for suspected mesh involvement) -TPN and nothing by mouth as noted above Hyperglycemia, acute. Present on admission. - A1c 5.3 last admission, repeat pending -No need for intervention at this time given patient's bedside blood glucose readings BPH, chronic - Continue home tamsulosin PRN MEDICATIONS - Acetaminophen as needed for mild pain/fever/headache - Bowel regimen as needed - Antiemetic as needed Patient is admitted under inpatient status with expected length of stay greater than 2 midnights due to severity of presenting symptoms, risk of adverse event, and complexity of treatment plan. Disposition: Anticipate several days prior to full determination of disposition. Likely to return to [facility] [place] at time of discharge. GI Prophylaxis: H2 nivia VTE Prophylaxis: Sub-Q Heparin (Unfractionated) VTE Mechanical Devices: Intermittant Pneumatic CD Resuscitation Status: CPR: Attempt Resuscitation Attending Statement The patient was seen and examined together with Dr. Franz on 06/20/2016 and I agree with the history, exam and plan as outlined in the note above. . Cammie Franz DO June 20, 2016 16:36 Sanjay Stout MD June 20, 2016 17:08
--- NOTE | 2016-06-20 16:57 | DRSVH ---
PROCEDURE: X-RAY CHEST ONE VIEW, PORTABLE ([id number]) INDICATIONS: aspiration pneumonia TECHNIQUE: One view of the chest was acquired. COMPARISON: [facility], CR, XR CHEST 1VW (PORTABLE), 05/31/2016, 11:20. [facility], CR, XR CHEST 1VW (PORTABLE), 06/18/2016, 4:46. [facility], CR, XR CHEST 1VW (PORT ABLE), 06/18/2016, 6:19. FINDINGS: Surgical changes and devices: The endotracheal tube and nasogastric tube have been removed. There is a right IJ central line with the tip in the error of SVT. An electronic device is again noted projec ting in the left lung. Lungs and pleura: There is improved aeration in right lung, reflecting decreased pneumonia. No pleur al effusions or pneumothorax. Mediastinum: Mediastinal contours appear normal. Heart size is normal. Bones and chest wall: No suspicious bony lesions. Overlying soft tissues appear unremarkable. Maddy re shoulder joint degeneration bilaterally. IMPRESSION: Decreased right pneumonia. Dictated by: Tiana Gary M.D. on 06/20/2016 at 16:52 Approved by: Tiana Gary M.D. on 06/20/2016 at 16:55
--- NOTE | 2016-06-20 17:28 | CONS ---
[address] [address] CONSULTATION REPORT PATIENT: JAYLEN LOPEZ : 1940 MR#: [id number] ADMIT: 06/18/2016 JOB ID: [id number] DATE OF SERVICE: 06/20/[address] Stout for this timely consult. REASON FOR CONSULTATION: ESBL E. coli urinary tract infection with associated enterocutaneous ESBL Proteus urinary tract infection with associated enterocutaneous fistula in a patient with multiple underlying medical problems. HISTORY OF PRESENT ILLNESS: The patient is a 76-year-old gentleman who has been residing at [facility]. He was admitted here back in April with respiratory failure and following that admission was transferred to [facility] where he has remained. He was sent back to this facility on the when he was found with altered mental status. Since his admission here, it has been found that the patient has any ESBL Proteus complicated urinary tract infection which may produce his change in mental status, but he also has what appears to be an infected enterocutaneous fistula which was not noted at present back on his May 2016 admission for other causes. He has been seen by General Surgery and numerous other specialties. Since his readmission, General Surgery is planning to place him on TPN to help beef him up in preparation for an abdominal surgery to remove his enterocutaneous fistula as well as any infected mesh which remains from prior bariatric surgery. Infectious Disease is consulted today regarding management of his ESBL Proteus UTI. The patient is confused at times and confabulates. He is known to have underlying severe PTSD. He at times is uncertain as to recent events and believes that he may have been locked in a basement during his hospital stay, for example. On the other hand, he does seem able to answer some questions about where he has been living in a more general way about his life history. Nonetheless, the patient's history should be taken with a grain of salt given his confabulation and confusion which permeates his thought processes. The patient today states he has no significant headache, cough, shortness of breath or dyspnea. He does say that he has some abdominal pain and localizes that to the area of the enterocutaneous fistula. He specifically denies urgency, frequency or dysuria and does not have an indwelling Elizondo catheter. Little else can be garnered from his history other than he is clear on the fact that he has mesh in his abdominal wall which is left over from a bariatric surgery procedure. PAST MEDICAL HISTORY: 1. Organic heart disease; a. Atrial fibrillation. b. Pacemaker in place. 2. Chronic renal insufficiency. 3. Severe PTSD. 4. Recurrent pneumonia. 5. Hypertension. 6. COPD. 7. 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 SOCIAL HISTORY: The patient was born on the [facility] [place] in [place], subsequently grew up in [place] and then joined the [employer] where he saw action in [place] which has left him with rather severe PTSD. He states that he stopped drinking and smoking 31 years ago. He currently resides at [facility] for the last month. He has been three times. FAMILY HISTORY: Negative for tuberculosis, he says, in 1st or 2nd-degree relatives and he himself has never been suspected of having TB. REVIEW OF SYSTEMS: Was done but was at times quite confusing. Patient states he has no significant headache. No visual loss. No sores in the mouth. No trouble swallowing. No significant cough, shortness of breath or chest pain. He does note that he has abdominal pain but no nausea, vomiting, or diarrhea. He has had weight loss. He denies urgency, frequency or dysuria. The patient can walk at baseline though has not during his short stay here. Remainder of the review of systems was not obtainable or negative. PHYSICAL EXAMINATION: Reveals an afebrile, gentleman lying supine in his hospital bed. Temperature 36.4, pulse 91, respiratory rate 16, blood pressure 101/65. He is saturating 91% but on 2 L. He is confused at times and confabulating at times, so I would say oriented x1 though he is able to give some apparently sharp answers to selected questions. His head is notable for very significant temporal wasting. We note his BMI is 26. His eyes are without scleral icterus or conjunctivitis. Nose is normal. He is edentulous. There is no pharyngitis. No gingivitis noted. His neck seems reasonably supple. Does not have cervical or supraclavicular adenopathy. Lungs are no significant rales or rhonchi. He does have a right IJ that was placed here and does have a left upper chest pacer which is nontender. His abdomen is a bit difficult to examine, but he has a cross-like scar in the middle of his abdomen which presumably is related to his bariatric surgery. From the middle of this, there is a small enterocutaneous fistula apparently draining greenish material which was present on the dressing. There is some surrounding erythema and about a 4 cm in diameter circular area surrounding the enterocutaneous fistula and this is somewhat tender as well. The lower portions of the abdomen are nontender. He does not have a Elizondo. His penis and scrotum appear normal. No significant evidence of synovitis. His extremities are well perfused. No skin rashes noted. No significant peripheral edema. The patient can move his extremities and participates some in his exam. As mentioned, no skin rash noted. LABORATORIES: Include white count 8100, hematocrit 23, neutrophils 97%, but note that he has been placed on steroids for possible COPD exacerbation. His creatinine is 3.29, down from 4.53 when he was admitted. His LFTs basically normal. Albumin 2.7. Lipase was elevated at 125, that is about two times normal. Procalcitonin has been bouncing around but basically we have four measurements all around 0.3 which, given his renal function, is normal. Urinalysis had too numerous to count white cells, no red cells. Micro studies include negative blood cultures. Negative MRSA screen. Positive Proteus urine culture to go with the packed white cells, and this is a true ESBL organism which is resistant to everything except ertapenem on our panel. Note that meropenem of course, was not checked but presumably would work, but everything else is completely resistant with very high MICs and this is a Proteus mirabilis. Multiple urine blood cultures as noted are negative. A swab from the draining enterocutaneous fistula shows rare polys and moderate gram-negative rods. A comment from the radiologist shows that there is mixed aerobic and anaerobic organisms consistent with a bowel fistula and they did not work up those organisms. A respiratory viral PCR study is positive for RSV, interestingly, but it was also positive during his admission back in May and this likely represents simply residual virus. A chest x-ray done on this admission shows some right lower lobe consolidation. The CT of the abdomen was reviewed. It shows some leaking contrast material into the anterior abdominal wall, undoubtedly coming from an enterocutaneous fistula. Small bilateral pleural effusions are seen, and there is atelectasis in the right lung in particular as well as cardiomegaly. IMPRESSION: This is an extremely unfortunate gentleman with a collection of severe problems as well as a fairly abnormal mental status perhaps secondary to his chronic underlying postraumatic stress disorder. His current major problems would include altered mental status which I believe is due to his extended spectrum beta lactamase Proteus complicated urinary tract infection as well as an ongoing and apparently recently developed enterocutaneous fistula. The enterocutaneous fistula, in and of itself, represents a major problem because we believe, and the patient believes, that there is mesh underlying this and this certainly constitutes a major upcoming surgical problem as efforts will need to be made to correct the enterocutaneous fistula, but with some difficulty because of the retained mesh which will need to be removed if possible. In addition to these problems, the patient has quite severe renal failure as well as underlying chronic obstructive pulmonary disease and organic heart disease. RECOMMENDATIONS: 1. Will change the cefepime to ertapenem. A recent article in the Journal Clinical Infectious Disease shows the cefepime is a poor choice for ESBL organisms even when they appear to be susceptible which this one does not. There are almost no other antibiotic options available here, but we could consider the use of a novel antibiotic combination, ceftolozane plus tazobactam, but I think in this case ertapenem will suffice. 2. We will go ahead and discontinue the metronidazole as well, as we do not need any additional anaerobic coverage beyond the ertapenem. 3. Note that the ertapenem will be renally adjusted because of his ongoing renal failure. 4. This case discussed in person with Dr. Stout. I believe this patient should be transferred to the [facility] in [place] if possible as they know him and his complex history and would be in a better position perhaps to address his enterocutaneous fistula with underlying mesh infection presumably. Thank you very much for this consultation.
--- NOTE | 2016-06-20 19:22 | PROG NOTE ---
[address] [address] PROGRESS NOTE PATIENT: JAYLEN LOPEZ : 1940 MR#: [id number] ADMIT: 06/18/2016 JOB ID: [id number] DATE: 06/20/2016 PROBLEM LIST: 1. Aspiration pneumonia. 2. Enterocutaneous fistula, status post abdominal surgery with mesh implantation. 3. Acute kidney injury with slowly improving creatinine. 4. Proteus mirabilis in urine. SUBJECTIVE: Feeling a little bit better. Still notes shortness of breath with minimal exertion. Coughing up some rather thick phlegm. Relatively white in color. No chest pain per se. Having problems with abdominal wall drainage. He is happier with the colostomy bag to help collect the drainage. OBJECTIVE: Afebrile with T-max of 36.4, pulse 74-100, respiratory rate of 16-20, blood pressure 101/59, O2 sat on 2 L is 93% to 98%. General appearance: Rather loquacious. Seemingly pleasant. Confused. Chest shows fairly good breath sounds bilaterally. Maybe a few scattered crackles, mostly in the lower lung ayala. No use of accessory muscles. Heart tones normal. Abdomen soft. Colostomy collecting some thinnish, green piriform secretions. Extremities: No pretibial edema. LABORATORY DATA: White cell count is 8100. Hemoglobin slowly decreasing, 8 on admission, now 7.2. Platelet count 279,000. White cell differential: Marked neutrophilia. Sodium 133, potassium 4.3, chloride 101, CO2 16, BUN 72, creatinine 3.29. Calcium 8.2. Procalcitonin 0.34, relatively stable. Calcium 8.2. Phosphorus elevated at 6.7. Magnesium normal at 1.8. ASSESSMENT: Aspiration pneumonitis. Doing reasonably well. I think we will repeat the chest x-ray, see how we are doing. Certainly his oxygenation is improving. Seems to be coughing up secretions relatively well. Do not know that we need Acapella or any other measures at this point. Will see how he is doing symptomatically at this point. PLAN: 1. Continue current regimen. 2. Chest x-ray, AP portable upright today.
[2016-06-20] MEDS: LORazepam 0.5 mg Tablet PO PRN (19:28)
--- NOTE | 2016-06-20 19:59 | NUR ---
Heart rate/Neuros Tele HR a-fib IVCD with occasional RVR up to the 140s and 150s. MD notified. Metroprolol 5mg IVP given per MD order for sustained HR above 120. HR decreased to around 90s and has remained there. Pt was less oriented today than he was yesterday. Asked two different times where he was. Asked many times where his dogs were. Does not remember previous conversations we had. Increased agitation noted that subsided in the evening.
[2016-06-20] MEDS: Total Parenteral Nutrition 1 BAG IV SCH (22:38)
[2016-06-21] VITALS (12 sets, daily range): BP systolic 103–129; BP diastolic 63–103; PULSE 82–129; RESP 12–22; O2SAT 92–96
[2016-06-21] MEDS: Chlorhexidine 0.12% 15 mL Oral Solution MT SCH ×7 (00:34→22:41)
[2016-06-21] MEDS: LORazepam 0.5 mg Tablet PO PRN (00:38)
--- NOTE | 2016-06-21 03:29 | NUR ---
Confusion/IJ line and TPN Pt alert and forgetful but oriented at start of shift. Awakened confused asking where his bed was and pulled out his IJ with TPN infusing. Catheter intact and bleeding stopped with dressing. MD notified. No new orders at present, with plan for PICC in AM.
[2016-06-21 03:59] LABS: Mean Corpuscular Hemoglobin 26.9 pg (27.0-35.0); Mean Corpuscular Volume 84.5 fL (81-100)
[2016-06-21 04:00] LABS: BASOPHILS % (AUTO) 0.1 % (0-3); EOSINOPHILS % (AUTO) 0 % (0-5); MONOCYTES % (AUTO) 4.6 % (4-12); NEUTROPHILS % (AUTO) 91.7 % (40-74); Platelet Count 326 bil/L (150-400)
[2016-06-21 04:35] LABS: Phosphorus 5.8 mg/dL (2.5-4.9)
[2016-06-21 04:36] LABS: Unsaturated Iron Binding 239.7 ug/dL
--- NOTE | 2016-06-21 04:39 | NUR ---
Pain/HR HR increased to 130's and 140's during periods of agitation. Now afib in 110's while sleeping. C/o left shoulder pain and given pain medication. Calmed down and now sleeping.
[2016-06-21] MEDS: Albuterol-Ipratropium 3 mL Inhalation Solution NEB SCH ×4 (07:25→20:53)
--- NOTE | 2016-06-21 08:50 | NUR ---
Spoke with Montse in patient access at Loc[facility] and there is no bed available today but they have spoken with and this patient will be the first to move once something is available. He will either be moved to their surgical floor or to a medicine bed with surgical consult. Montse is requesting clinicals be sent first thing on Mon06/22/16 to ensure transfer if bed is open. Patient is 100% connected for PTSD patient is PNT and FEE. This is a priority patient and is being paid for while here. Updated [employer] and
[2016-06-21] MEDS ORDERED: Sodium Chloride LOK Flush 10 mL Syringe IVFLUSH PRN ×2 (09:05)
--- NOTE | 2016-06-21 09:13 | PCM.PNSURG ---
Subjective Visit Information: Reason for Visit Trilobar Pneumonia, Respiratory Failure Surgery/Surgery Date Post-Op Day # Date of Admission: June 18, 2016 at 06:01 Hospital Day # Subjective: comfortable in bed, bag placed by administrative services specialist yesterday onto abd wound, not completely oriented, thinks he's in [place] Objective Objective Awake in bed, answers questions, but not oriented to place Abd: bag appliance on mid-abd wound, low output of greenish drainage in bag, otherwise nontender Vital Sign- Last 8 Hours Date Time Temp Pulse Resp B/P Pulse Ox O2 Delivery O2 Flow Rate FiO2 06/21/16 08:55 36.4 110 109/74 94 Nasal Cannula 06/21/16 07:26 118 12 92 Nasal Cannula 3.00 06/21/16 02:50 36.6 106 20 129/103 93 Nasal Cannula 3.00 Intake and Output- Last 8 Hour 06/21/16 Cumulative From/Thru 07:00 06/18/16 04:23 - 06/21/16 06:03 Intake Total 1422 ml 93332 ml Output Total 700 ml 5080 ml Balance 722 ml 5235 ml Intake Oral 540 ml 1040 ml IV Total 882 ml 9275 ml Output Urine Total 700 ml 5000 ml Gastric Drainage Total 80 ml # Bowel Movements 0 Result Diagram: 06/21/16 0350 06/21/16 0350 Assessment & Plan Impression Likely enterocutaneous fistula from mesh/suture erosion R pneumonia Clinically stable Problems: Plan Continue TPN and abx NPO x ice chips Recommend transfer to [facility]. VTE Prophylaxis: Sub-Q Heparin (Unfractionated) Resuscitation Status: CPR: Attempt Resuscitation John Desir MD June 21, 2016 09:13
[2016-06-21] MEDS: Fluticasone-Salmererol 250-50 Inhaler INHALATION SCH ×2 (09:16→20:18)
[2016-06-21] MEDS: Heparin 5,000 Unit/mL Inj SUBQ SCH ×2 (09:17→20:19)
[2016-06-21] MEDS: Diltiazem CD 240 mg ER24 Capsule PO SCH (09:27)
--- NOTE | 2016-06-21 09:50 | DRSVH ---
PROCEDURE: X-RAY CHEST ONE VIEW, PORTABLE ([id number]) INDICATIONS: f/u lung infiltrate TECHNIQUE: One view of the chest was acquired. COMPARISON: [facility], CR, XR CHEST 1VW (PORTABLE), 06/18/2016, 6:19. [facility], CR, XR CHEST 1VW (PORTABLE), 06/18/2016, 4:46. [facility], CR, XR CHEST 1VW (IGNACIO BLE), 05/31/2016, 11:20. [facility], CR, XR CHEST 1VW (PORTABLE), 06/20/2016, 16:02. FINDINGS: Surgical changes and devices: None. Lungs and pleura: Persistent airspace opacity redemonstrated throughout the right lung and the medial left lung base which appears increased within the right upper lobe. No pneumothorax. Mediastinum: Mediastinal contours appear normal. Heart size is normal. Bones and chest wall: No suspicious bony lesions. Overlying soft tissues appear unremarkable. Maddy re left shoulder arthropathy redemonstrated. IMPRESSION: Bilateral pneumonia, increased involving the right upper lobe when compared to prior exam ination. Dictated by: Earl Zavala RRA Interpreted: Wendie Villar MD on 06/21/2016 at 9:48 Transcribed by: ANDRES on 06/21/2016 at 9:49 Approved by: Wendie Villar MD, PhD on 06/21/2016 at 15:04
--- NOTE | 2016-06-21 10:10 | PROG NOTE ---
[address] [address] PROGRESS NOTE PATIENT: JAYLEN LOPEZ : 1940 MR#: [id number] ADMIT: 06/18/2016 JOB ID: [id number] DATE: 06/21/2016 INFECTIOUS DISEASE FOLLOW UP NOTE: REASON FOR FOLLOW UP: RSV pneumonitis, ESBL UTI, possible superimposed bacterial aspiration pneumonia and enterocutaneous fistula with TPN. INTERVAL HISTORY: Overnight, the patient reports he has not been feeling too bad. He notes that he has no fever or chills. He has a bit of a cough and a little shortness of breath but he thinks they are both better. He notes he has continued drainage from his abdominal enterocutaneous fistula but that a device has been placed over it to catch the drainage which is an improvement. He has no abdominal pain at this point and denies nausea or vomiting. He is currently n.p.o. and receiving TPN in an attempt to correct his enterocutaneous fistula. LABORATORIES: Include a white count of 9100, 91% segs. Creatinine slightly better at 3.1. LFTs normal. Procalcitonin stable at 0.3. Note that his procalcitonin is being checked almost daily and it is consistently about 0.3 which is normal for someone in renal failure. I do not think any more procalcitonins need to be checked. Urinalysis was packed with white cells and the urine culture grew Proteus mirabilis which was an ESBL organism that was sensitive to carbapenems and Zosyn and nothing else. Though there is controversy in the literature, Zosyn would probably work for this organism as the BURT was 4. Chest x-ray shows continued extensive right greater than left infiltrate which could be compatible with aspiration pneumonia or unilateral pulmonary edema or RSV pneumonia rather than a bacterial aspiration pneumonia. I reviewed this chest x-ray and compared it to prior films myself. IMPRESSION: This was an unfortunate gentleman with multiple significant medical problems. His current issues include a complicated ESBL, Proteus urinary tract infection which we are treating with ertapenem. In addition, he appears to have an aspiration type pneumonia superimposed on his previously documented RSV pneumonitis which is also being likely effectively treated with the ertapenem. As a third issue, we have an enterocutaneous fistula which is being treated conservatively with drainage bag and TPN to rest his bowel. This is probably on the basis of a chronically infected mesh which is a messy problem that will eventually require surgical intervention. RECOMMENDATIONS: 1. Will continue with ertapenem. 2. The ertapenem will be a renally adjusted dose of 500 a day. 3. All involved physicians agree this patient should be transferred to the [facility] where he is well-known where appropriate surgical expertise would be available to take out the mesh which apparently was placed as a consequence of a prior surgery for morbid obesity.
--- NOTE | 2016-06-21 10:56 | NUR ---
NUTRITION FOLLOW UP: ASSESS: 76 YO male readmitted with sepsis, pneumonia, pyelonephritis, and acute on chronic kidney injury in patient with chronic stage 4 kidney disease. 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 TPN started 06/20. Pt extubated 06/18. Per notes, nephrology recommends not restricting protein. Pt awaiting bed at [facility]. Pt with some confusion per notes. 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 DIET: NPO. TPN: 200 g Dex, 40 g Lipids, 60 g AA providing 1320 kcal, 60 g protein; 63% calorie 90% protein needs. DIR: 1.66 mg/kg/min LABS: Reviewed. Na 133, BUN 71, Cr 3.10, Glu 154, Ca 8.3, Phos 5.8, Alb 2.6, PAB 8, K+/Mg WNL. MEDICATIONS: Reviewed. Solu-medrol. GI: No BM noted. SKIN: Surgery consult pending related to potential abdominal wall abscess with possible enteric fistula. ANTHROPOMETRICS: Current Wt: 84.3 kg, BMI: 26.7 kg/m2. IBW: 75.45 kg (112% IBW), Admit wt: 84.3 kg. ESTIMATED NEEDS (CKD/FISTULA): Calories: 5132-7011 kcal/day (25-35 kcal/kg BW) Protein: 67-100 g/day (0.8-1.2 g/kg BW) NUTRITION DIAGNOSIS: 1) Inadequate oral intake related to inability to consume sufficient energy, as evidenced by NPO status.---PERSISTS. 2) Increased nutrient needs related to wound, acute on chronic stage 4 renal disease, as evidenced by multiple electrolyte abnormalities, nephrology and surgery consults.---PERSISTS. INTERVENTION: 1) Continue current TPN as ordered. If TPN appears tolerated tomorrow, consider advancing to 300 g Dex, 50 g lipids, 75 g protein; meeting 1820 kcal, 75 g protein; meeting 87% calorie, 100% protein needs. 2) Once TPN tolerance established, slowly advance to goal of 400 g Dex, 60 g lipids, 85 g protein, providing 2300 kcal, 85 g protein; meeting 100% calorie/protein needs. DIR: 3.32 mg/kg/min. MONITOR/EVALUATE: NPO status, labs, TPN tolerance/advance, GI/nutrition status. Follow per high nutrition risk guidelines.
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
--- NOTE | 2016-06-21 12:01 | PCM.PNNEPH ---
Subjective Date of Service June 21, 2016 Subjective TPN started last night. Pulled out IJ. Confused at times. Kidney function continues to improve slowly. Exam Vital Signs Vital Sign - Last Date Time Temp Pulse Resp B/P Pulse Ox O2 Delivery O2 Flow Rate FiO2 06/21/16 11:20 120 16 95 Nasal Cannula 3.00 06/21/16 08:55 36.4 109/74 06/18/16 15:00 35 Intake and Output 06/20/16 06/20/16 06/21/16 Cumulative From/Thru 15:00 23:00 07:00 06/18/16 04:23 - 06/21/16 06:03 Intake Total 2032 ml 1422 ml 75332 ml Output Total 650 ml 700 ml 5080 ml Balance 1382 ml 722 ml 5235 ml Intake Oral 400 ml 540 ml 1040 ml IV Total 1632 ml 882 ml 9275 ml Output Urine Total 650 ml 700 ml 5000 ml Gastric Drainage Total 80 ml # Bowel Movements 0 0 Exam General: AAOx3,NAD, comfortably at the moment. Eyes: PERRLA, EOMI, anicteric sclera, noninjected conjunctiva. HEENT: Normocephalic, atraumatic. mild pallor, no icteric sclerae. Neck: Supple with full range of motion. Cardiovascular: irregular rhythm, variable S1, S2. Pulmonary: coarse crackles B/L, occasional expiratory wheezing noted. Abdomen: Soft, tenderness at midabdomen, fistula noted colostomy bag placed. Extremities: no edema, cyanosis, no rash. : Elizondo cath in place, yellowish urine. Lab and Diagnostics Result Diagram: 06/21/16 0350 06/21/16 0350 Microbiology Respiratory viral panel positive for RSV (please note this was positive in 2016) Gram stain of abdominal pus with gram variable rods with ID and sensitivity to follow Preliminary urine culture showing probable Proteus * Please note: Urine culture 12/16/13 showed velazquez-resistant Proteus mirabilis MRSA nasal negative Strep urine antigen negative Sputum culture shows normal jarvis X-Rays, CTs and MRIs CT abdomen and pelvis without contrast 06/18/16 IMPRESSION: Small amount of contrast material seen within the midline anterior abdominal wall wound, presumably leaked from a 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 Possible location in the midline anterior abdominal wall on image 44 as above, however technically indeterminate and recommend clinical correlation. No extraluminal intraperitoneal contrast material. Small bilateral pleural effusions with adjacent atelectasis, right greater left. Cardiomegaly. Chest x-ray 06/18/2016 at 0429 IMPRESSION: Support equipment as detailed above. Right perihilar consolidation, which could represent multifocal pneumonia and/ or aspiration. Recommend clinical correlation and short interval radiographic surveillance to document resolution after treatment and exclude abnormal soft tissue/neoplasm. 12-lead ECG 06/18/16 Atrial fibrillation with a rate of 120, ventricular premature complexes, right bundle branch block and left anterior fascicular block Cardiac Echo Impressions Please note following echo is from 05/23/16: Interpretation Summary Left ventricular systolic function is normal without focal wall motion abnormalities. The ejection fraction is estimated to be 60-65%. LVEF has not changed since priro study. Left ventricular wall thickness is mild-moderately increased. The right ventricle is at the upper limits of normal in size. The right ventricular systolic function is normal. Right ventricular systolic pressure is estimated to be 20 mmHg plus the clinically estimated CVP which cannot be estimated on this exam. The left atrium is severely dilated. The right atrium is severely dilated. There is mild mitral regurgitation. There is no other significant valvular heart disease. The aortic root is mildly dilated. The ascending aorta is mildly enlarged. The aortic arch is mildly enlarged. Plan Impression 1. GILMAR on CKD due to ATN/UTI. h/o urinary retention. 2. Enterocutaneous fistula. 3. UTI. 4. High anion gap and non gap metabolic acidosis. 5. COPD. 6. Afib. 7. PTSD. 8. Hypertension with hypertensive nephrosclerosis. 9. Hyperphosphatemia Plan: Continue supportive treatment per renal. Continue TPN. No objection to place PICC line. Jose Valles MD June 21, 2016 12:01
--- NOTE | 2016-06-21 13:44 | DRSVH ---
PROCEDURE: X-RAY PICC LINE PLACEMENT BY NURSE ([id number]) INDICATIONS: access for TPN, pt pulled out his IJ COMPARISON: [facility], CR, XR PICC LINE PLACE BY NURSE, 10/14/2014, 20:51. FINDINGS: PICC was placed by the intravenous therapy team from the right side. Fluoroscopic spot fi lm demonstrates tip projected over the cavoatrial junction. IMPRESSION: Tip of PICC projected over the cavoatrial junction. Dictated by: Earl ALFARO Interpreted: Wendie Villar MD on 06/21/2016 at 13:43 Transcribed by: ANDRES on 06/21/2016 at 13:43 Approved by: Wendie Villar MD, PhD on 06/21/2016 at 15:13
[2016-06-21] MEDS ORDERED: 0.9% Sodium Chloride 250 ML ONE (13:47)
[2016-06-21] MEDS: Ertapenem Inj 500 MG in 0.9% Sodium Chloride 50 ML IV SCH (13:55)
[2016-06-21] MEDS: Famotidine Inj 20 MG in IV Premix 1 EACH IV SCH (13:55)
[2016-06-21] MEDS: Dextrose 10% 1,000 ML IV SCH ×2 (17:30→22:41)
--- NOTE | 2016-06-21 18:28 | NUR ---
Wound Care Patient seen at bedside at nursing request as fistula appliance is noted to be leaking. Excoriated skin was treated with stoma powder and skin barrier for crusting. Replaced fistula bag with a flat moldable convatec #[id number] appliance and pouch. Will recheck on how this is working for the patient tomorrow.
--- NOTE | 2016-06-21 19:47 | NUR ---
Confusion/Pain/fistula Cardiac: Denies chest pain. Tele afib 90-120 up to 150 this AM. Resp: = Pt denies SOB, SPO2 low to mid 90s on 3LNC. GI/: Pt denies n/v, reports abdominal pain around noon. abdominal fistula is putting out brown green liquid. Fistula bag changed for ostomy bag by wound care. Elizondo draining to gravity. Neuro: Pt is confused at times, A&O to self and year only. Has been cooperative with care so long as things are well explained. Pt is reorientable, sometimes needs to be reminded that he has been confused lately. Abdominal and shoulder pain is tolerable with Po pain meds.
[2016-06-21] MEDS: Total Parenteral Nutrition 1 BAG IV SCH (20:19)
[2016-06-22] VITALS (9 sets, daily range): BP systolic 100–122; BP diastolic 67–77; PULSE 83–113; RESP 14–20; O2SAT 87–93
[2016-06-22 04:23] LABS: Magnesium 2.2 mg/dL (1.6-2.6); Phosphorus 5.8 mg/dL (2.5-4.9)
--- NOTE | 2016-06-22 05:49 | NUR ---
Agitation Pt AOX3 at beginning of shift, compliant with care, answers questions appropriately and verbalizes needs. Verbalized understanding of POC and interventions. Able to rest throughout shift until approx. 0300 when aide reported hearing pt waking up and cussing in room - upon arrival to room, pt agitated, angry, and confused. Reported "feeling like an animal" and that he "didn't deserve to be treated this way", though unable to verbalize what "this way" meant. Pt demanded to speak to "higher-up", charge nurse notified. Charge nurse Earl Ortega conversed with pt for approx. 20-30min with this RN present attempting to reorient to situation. Pt eventually calmed once excess furniture removed from room, bedside table de-cluttered, and curtains/windows opened to prevent claustrophobic feelings in pt. No further incidents this shift. VSS, tele afib 80s-90s, TPN infusing through PICC. Oxycodone administered x1 this shift with relief upon reassessment per pt report.
--- NOTE | 2016-06-22 08:12 | NUR ---
Called and left message for Montse in patient access at [facility] [phone] checking on beds. There are no beds available and they are currently boarding 11 patients in their ER. Updated MANAGER SKILLED
[2016-06-22] MEDS ORDERED: MethylprednisoLONE Sodium Succinate 40 mg/mL Inj IVPUSH SCH (08:30)
[2016-06-22] MEDS: Fluticasone-Salmererol 250-50 Inhaler INHALATION SCH ×2 (08:44→20:09)
[2016-06-22] MEDS: Heparin 5,000 Unit/mL Inj SUBQ SCH ×2 (08:45→20:10)
[2016-06-22] MEDS: Chlorhexidine 0.12% 15 mL Oral Solution MT SCH ×5 (08:45→19:17)
[2016-06-22] MEDS: Polyethylene Glycol (PEG) 17 Gm Powder PO PRN (08:45)
[2016-06-22] MEDS: Albuterol-Ipratropium 3 mL Inhalation Solution NEB SCH ×4 (08:47→19:48)
--- NOTE | 2016-06-22 09:40 | PCM.PNSURG ---
Subjective Date of Service: June 22, 2016 Date of Service: June 22, 2016 Visit Information: Reason for Visit Trilobar Pneumonia, Respiratory Failure Surgery/Surgery Date Post-Op Day # Date of Admission: June 18, 2016 at 06:01 Hospital Day # Subjective: Pt states that he had not moved from bed. He has not had a bowel movement, he is passing gas. He states abdominal pain and tenderness. During interview he became upset and refused to answer additional questions. He continues to have behavioral problems and conflicts with day and night staff. Objective Objective Laying in bed in no apparent distress. Abdominal fistula drainage bag in place and draining minimal amount of green fluid. Surrounding skin is slightly erythematous and tender to palpation. Pt refused further physical exam and requested to be left alone. Vital Sign- Last 8 Hours Date Time Temp Pulse Resp B/P Pulse Ox O2 Delivery O2 Flow Rate FiO2 06/22/16 08:21 36.3 95 18 110/74 Nasal Cannula 2.50 06/22/16 03:53 36.3 102 20 100/67 91 Room Air 0.00 Intake and Output- Last 8 Hour 06/22/16 Cumulative From/Thru 07:00 06/18/16 04:23 - 06/22/16 06:20 Intake Total 980 ml 00320 ml Output Total 400 ml 6030 ml Balance 580 ml 6206 ml Intake Oral 200 ml 2040 ml IV Total 780 ml 82771 ml Output Urine Total 400 ml 5950 ml Gastric Drainage Total 80 ml # Bowel Movements 0 0 General: Alert, No Acute Distress Abdomen: Appropriately tender, Guarding Result Diagram: 06/22/16 0345 06/22/16 0345 Assessment & Plan Impression Assessment and Plan: 1. Probable enterocutaneous fistula - Most likely secondary to previous abdominal surgery mesh/suture erosion - Wound care following, fistula drainage bag in place - NPO, with the exception of ice chips, sips of water and medications - Continue with ABX - [facility] ([facility] today), pt reported to be at top of transfer list Other Conditions 2. Healthcare associated pneumonia 3. Acute kidney injury in the setting of chronic kidney disease stage IV 4. Atrial fibrillation with rapid ventricular response 5. Anion gap metabolic acidosis 6. Bacteriuria 7. Hyponatremia 8. Encephalopathy 9. PTSD with anxiety and depression Problems: VTE Prophylaxis: Sub-Q Heparin (Unfractionated) Resuscitation Status: CPR: Attempt Resuscitation Attending Statement: I agree with Dr. Marx's assessment and plan. Continue TPN and IV abx. BRANDON MARX DO June 22, 2016 09:10 John Desir MD June 26, 2016 16:15
[2016-06-22] MEDS: Famotidine Inj 20 MG in IV Premix 1 EACH IV SCH (09:51)
[2016-06-22] MEDS: Diltiazem CD 240 mg ER24 Capsule PO SCH (09:52)
--- NOTE | 2016-06-22 10:13 | NUR ---
NUTRITION FOLLOW UP: ASSESS: 76 YO male readmitted with sepsis, pneumonia, pyelonephritis, and acute on chronic kidney injury in patient with chronic stage 4 kidney disease. Pt with likely enterocutaneous fistula. TPN started 06/20 due to need for bowel rest. Surgery is following. Pt extubated 06/18. Nephrology is following for CKD stg 4. Pt awaiting bed at [facility]. Pt with some confusion per notes. 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 DIET: NPO. TPN: 200 g Dex, 40 g Lipids, 60 g AA providing 1320 kcal, 60 g protein; 63% calorie 90% protein needs. DIR: 1.66 mg/kg/min LABS: Reviewed. CO2 16, Bun 76, District Manager In Training 3.03, Glu 143, phos 5.8, Alb 2.7 MEDICATIONS: Reviewed. Solu-medrol. GI: No BM noted. SKIN: WC following for Enterocutaneous fistula ANTHROPOMETRICS: Current Wt: 88.8 kg, BMI: 28.1kg/m2. IBW: 75.45 kg, Admit wt: 84.3 kg. ESTIMATED NEEDS (CKD/FISTULA): Calories: 5016-2929 kcal/day (25-35 kcal/kg admit BW) Protein: 65-85 g/day (0.8-1.0 g/kg BW) Fluids: 1850-2100ml/day (22-25ml/kg) or per nephrology NUTRITION DIAGNOSIS: 1) Inadequate oral intake related to inability to consume sufficient energy, as evidenced by NPO status.---PERSISTS. 2) Increased nutrient needs related to wound, acute on chronic stage 4 renal disease, as evidenced by multiple electrolyte abnormalities, nephrology and surgery consults.---PERSISTS. INTERVENTION: 1) Recommend advance TPN to 275g Dex, 70g AA and 50g lipids to provide 1715kcal and 70g pro (~75% kcal and 100% pro needs) Pharmacy aware. 2) Once TPN tolerance established, slowly advance to goal of 375 g Dex, 80g AA and 60g lipids providing 2110 kcal, 80 g protein; meeting 100% calorie/protein needs. 3) Adjust TPN macronutrients based on labs/POC MONITOR/EVALUATE: NPO status, labs, TPN tolerance/advance, GI/nutrition status. Follow per high nutrition risk guidelines. Addendum: 06/23/16 at [address] Continue current TPN today. Pharmacy is aware of recommendations. Will continue to monitor per high nutrition risk guidelines
--- NOTE | 2016-06-22 11:07 | NUR ---
Social Work Note: Continued Discharge Planning Data& Assessment: Per MD in morning rounds, pt is await bed at [facility] for transfer to fistula repair surgery. No beds at [facility] at this time. SW met with pt at bedside to assess for any unmet needs. Pt RN explained he was concerned about his dogs Tawanna and Sandi who are staying at the [facility] in [facility] and have been for the past couple of months. Pt requested SW contact them to ensure his payments were up to date and pay ahead for a couple more months in anticipation of a lengthy hospitalization and recover process. SW contacted the [employer] who explained pt owes $208 at this time and the cost per day after today would be $35 per day. This information was provided to pt and pt explained he would call on his own to make further payments for the upcoming weeks. Pt denies any other needs at this time. SW to continue to follow if any needs arise. Plan: Pt awaiting bed at [facility] for fistula surgery. [facility] is willing to accept pt back to their facility for continued rehab when pt is medically ready and stable if [facility] hospital transfers him back to his community at discharge. Pt denies any other needs at this time. SW to continue to follow if any needs arise. NATALIE Hernadez Addendum: 06/22/16 at 1618 by MUNIR TOMAS WILIAM received phone call from [facility] explaining pt daughter was attempting to get update on pt status, but they did NOT share any information with her based on previous requests from the pt. Pt was notified and will think about whether or not he would like his daughter involved in his care but requested SW follow up with him about this tomorrow. SW to continue to follow. NATALIE Hernadez
[2016-06-22] MEDS: Ertapenem Inj 500 MG in 0.9% Sodium Chloride 50 ML IV SCH (13:41)
--- NOTE | 2016-06-22 14:01 | PCM.PHAPRO ---
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 Fluids/VS Euvolemic, heart rate controlled reasonably, UOP good, I/O trending positive. p/ Consider reducing fluid delivery Continue ~ 1/3 NS equivalent solution II. Chem Lytes WNL and without significant trends. SCr trending down slowly p/ Keep Mg>2, K>4 and consider restricting fluids further III. Glycemic control BG < 150 IV. Substrate/Misc Advancing today per rec's of Clinical Nutrition PARENTERAL NUTRITION ORDERS 3 22-Jun-16 Standard Hang Time: 2100 Substrates Total kcal: 1715 AMINO ACIDS 70 g DEXTROSE 275 g Total Volume (mL): 1500 LIPIDS 50 g Sterile Water for Injection QS mL To Infuse Over (hrs): 24 Total Volume 1500 mL At at a rate of (mL/hr): 63 Additives Sodium Chloride 40 mEq "typical" daily requirements Sodium Acetate 40 mEq Sodium 50-120mEq Potassium Chloride 40 mEq Potassium 60-120mEq Potassium Phosphate mEq Phosphate 20-40mEq Calcium Gluconate 12 mEq Magnesium 8-32mEq Magnesium Sulfate 12 mEq Calcium 9-22mEq Acetate* 80-120mEq Chloride* 80-120mEq Regular Insulin units *Depending on acid-base status Famotidine mg Multivitamins 1 std dose Insulin Regimen Trace Elements 1 std dose none Thiamine mg Regular Low Intensity Subcut Folic Acid mg Regular Medium Intensity Subcut Ascorbic Acid mg Regular High Intensity Subcut Regular Insulin Infusion Other: Special Instructions: To be infused via central line only. For delay or inturruption of TPN contact the pharmacist for alternative replacement solution. Dick Ramirez Pharm D June 22, 2016 14:01
[2016-06-22] MEDS: LORazepam 0.5 mg Tablet PO PRN (14:10)
--- NOTE | 2016-06-22 16:20 | PCM.PNMED ---
Subjective Date of Service June 22, 2016 Subjective Mr. Benítez is a 76 year old male with a history of COPD, multiple episodes of pneumonia, Afib with RVR, chronic renal failure, PTSD, pacemaker, and HTN, hospitalized here from 05/21-06/01/16 with respiratory failure and hospitalized at the [facility] PTSD unit in [place] for 2 weeks with discharge on 05/19/16, who presented to the ER via EMS after staff at [facility] found him unresponsive with decreased O2 saturation just prior to arrival. Today is hospital day 5. Overnight, he became agitated but was able to be reoriented and calmed down with some changes to his environment. This morning, he states that he has abdominal pain and left shoulder pain. The pain medication does not completely help. He feels the same as yesterday. He does not feel any better. Exam Vital Signs Vital Sign - Last Date Time Temp Pulse Resp B/P Pulse Ox O2 Delivery O2 Flow Rate FiO2 06/22/16 03:53 36.3 102 20 100/67 91 Room Air 0.00 06/18/16 15:00 35 Intake and Output 06/21/16 06/21/16 06/22/16 Cumulative From/Thru 15:00 23:00 07:00 06/18/16 04:23 - 06/22/16 06:20 Intake Total 941 ml 980 ml 51189 ml Output Total 550 ml 400 ml 6030 ml Balance 391 ml 580 ml 6206 ml Intake Oral 800 ml 200 ml 2040 ml IV Total 141 ml 780 ml 70201 ml Output Urine Total 550 ml 400 ml 5950 ml Gastric Drainage Total 80 ml # Bowel Movements 0 0 0 Exam General/Constitutional: Thin, Well nourished, appropriately interactive. Mild distress due to frustration with being in a hospital, but does appear mildly uncomfortable Head / Eyes: Atraumatic, Normocephalic. Normal extraocular movements. Sclerae are anicteric, conjunctiva are not injected Neck: Supple with full range of motion. Bandage in place on right side of neck at site of IJ catheter insertion. Resp: Bilateral diffuse rales, worse at lung bases. Normal respiratory effort on supplemental oxygen CV: Irregularly irregular, systolic ejection murmur grade 2/6. Radial pulses are 2+ bilaterally Abdomen: Soft, moderately tender around the fistula and surrounding area, No guarding, No rebound, No distention Extremities: No swelling, No tenderness. No peripheral edema appreciated Skin: Warm, Dry, No cyanosis, erythema of anterior abdomen midline with an elevation midline topped by a draining wound/fistula covered by a wound bag with purulent brown drainage. Neurologic: Grossly intact today Psych: Irritable about being in the hospital. Appropriate affect IVs and Medications Medications Reviewed: Medications were reviewed in detail Lab and Diagnostics Result Diagram: 06/22/16 0345 06/22/16 0345 Microbiology Respiratory viral panel positive for RSV (please note this was positive in 2016) Gram stain of abdominal pus with gram variable rods with ID and sensitivity to follow Preliminary urine culture showing Proteus mirabilis sensitive to ertapenem * Please note: Urine culture 12/16/13 showed velazquez-resistant Proteus mirabilis MRSA nasal negative Strep urine antigen negative Sputum culture shows normal jarvis X-Rays, CTs and MRIs CT abdomen and pelvis without contrast 06/18/16 IMPRESSION: Small amount of contrast material seen within the midline anterior abdominal wall wound, presumably leaked from a 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 Possible location in the midline anterior abdominal wall on image 44 as above, however technically indeterminate and recommend clinical correlation. No extraluminal intraperitoneal contrast material. Small bilateral pleural effusions with adjacent atelectasis, right greater left. Cardiomegaly. Chest x-ray 06/18/2016 at 0429 IMPRESSION: Support equipment as detailed above. Right perihilar consolidation, which could represent multifocal pneumonia and/ or aspiration. Recommend clinical correlation and short interval radiographic surveillance to document resolution after treatment and exclude abnormal soft tissue/neoplasm. PROCEDURE: X-RAY CHEST ONE VIEW, PORTABLE IMPRESSION: Bilateral pneumonia, increased involving the right upper lobe when compared to prior examination. Approved by: Wendie Villar MD, PhD on 06/21/2016 at 15:04 12-lead ECG 06/18/16 Atrial fibrillation with a rate of 120, ventricular premature complexes, right bundle branch block and left anterior fascicular block Cardiac Echo Impressions Please note following echo is from 05/23/16: Interpretation Summary Left ventricular systolic function is normal without focal wall motion abnormalities. The ejection fraction is estimated to be 60-65%. LVEF has not changed since priro study. Left ventricular wall thickness is mild-moderately increased. The right ventricle is at the upper limits of normal in size. The right ventricular systolic function is normal. Right ventricular systolic pressure is estimated to be 20 mmHg plus the clinically estimated CVP which cannot be estimated on this exam. The left atrium is severely dilated. The right atrium is severely dilated. There is mild mitral regurgitation. There is no other significant valvular heart disease. The aortic root is mildly dilated. The ascending aorta is mildly enlarged. The aortic arch is mildly enlarged. Assessment & Plan 76-year-old male with past medical history of hypertension, PTSD, depression, pacemaker placement and history of pneumonia admitted for shortness of breath and cough concern for pneumonia. Acute on chronic hypoxic respiratory failure. Present on admission. - Patient is not on home O2, intubated a.m. 06/18 in the emergency room, (and extubated 06/18 afternoon at 1540). However, patient has probable chronic obstructive pulmonary disease. - Extensive right lung widespread consolidation on chest x-ray - Empiric cefepime and Flagyl, and vancomycin were initiated at time of admission. (Vancomycin stopped 06/19 given negative MRSA screen and cefepime and Flagyl stopped 06/20/16 due to better coverage with ertapenem) - Microbiological workup as noted above - Hold Lasix for now given acute kidney injury - Solu-Medrol 40 mg IV every 12 hours in the setting of COPD (possible exacerbation). Started taper today. Decreased Solu-Medrol to 40 mg IV once daily 06/21/16. Continue taper with transition to PO prednisone 40 mg once daily tomorrow morning. - DuoNebs as needed Healthcare associated pneumonia. Presumed acute. Present on admission. -Please note RSV positive -Appreciate the expertise of the pulmonary service in the care of this patient -Continue antibiotic coverage as above -Continue with supportive treatment -Infectious disease consulted. Their time and recommendations are appreciated. Enterocutaneous fistula, unknown chronicity. Present on admission. -Suspect associated with previous abdominal surgery involving mesh. -Some suspicion that he will proceed to the OR, but defer to surgery in that regard. -Surgery has been consulted, and we appreciate their expertise in the care of this patient. -Wound care to evaluate his fistula, and continue in his evaluation throughout hospitalization -Continue TPN, pharmacy consulted, their time and recommendations appreciated. -Nothing by mouth except for medications, sips, and ice chips -Pain control with narcotic medication by mouth (consideration for IV if unable to tolerate by mouth) and topical lidocaine patch. Acetaminophen as needed for pain as well. -PICC line placement 06/21/16 to replace prior IJ and for TPN -Continue working towards transfer to [place] for optimal continuity of care for patient. Awaiting an open bed. Abdominal wall cellulitis, presumed acute. Present on admission -Associated with enterocutaneous fistula -Empiric antibiotics as noted above -Surgical intervention (possible) as noted PTSD with anxiety and depression, chronic - Recently completed 2 week stay at [facility] in [place] for same - Continue home medications have been in use at the SNF since his last hospitalization * Gabapentin, prazosin, trazodone, melatonin, citalopram, Ativan -Tapering steroid down as above -Continue reorienting patient and environmental modifications Chronic pain - Continue oxycodone as needed - Tylenol as needed - Added lidocaine patch once daily - K pad for additional relief for left shoulder pain - Reassess tomorrow and consider switch oxycodone alone to Percocet and adding diclofenac topical gel as needed Acute kidney injury in the setting of chronic kidney disease stage IV. Present on admission, improving. -Suspect baseline closer to 1.7. -CKD likely secondary to his hypertension (nephrosclerosis) - Patient was discharged last on 06/01/2016 (from [facility]) with creatinine of 2.92, creatinine at time of admission was 4.53 but now 3.03 - Renal U/S on last admission did not show a cause for renal insufficiency - Nephrology following, and we appreciate their expertise - Hold Lasix as noted - Discontinued fluids - TPN started as above Atrial fibrillation with rapid ventricular response. Acute RVR on chronic disease. Present on admission. -Patient without home medications the morning of day of admission, and is infectious/hypoxic respiratory failure presentation may have precipitated RVR. -Fluid replacement as above -Resumed home diltiazem 240 mg on 06/19/16 due to low blood pressure and increased rate -Metoprolol tartrate 5 mg IV pushes available for total of 3 doses -Consideration for anticoagulation as the patient's Pa Vasc score is 2-3 ( hypertension, age, question of CHF). -Continue to monitor on telemetry Anion gap metabolic acidosis. Acute, present on admission. -Anion gap today is 18.25 after correction for albumin -Likely associated with GILMAR, potential contributions from infections as noted and/or respiratory failure -Ingestions seem less likely at this time -Continue to monitor labs Bacteriuria, unclear if represents acute UTI versus colonization. Present on admission. -Please note the patient has history of velazquez resistant Proteus mirabilis in 2014 -Please note that the patient's urine culture is growing Proteus sensitive to ertapenem -Current cefepime and Flagyl regimen ineffective against suspected velazquez resistant microbe. Ertapenem as above. -Continue patient in full contact precautions. * Infectious disease consulted and following. Their time and recommendations are appreciated. Question of acute diastolic congestive heart failure was raised in previous notes. - BNP greater than 15,000. Admission note mentioned JVD present. This would indicate clinical CHF. - Echo from last hospitalization as noted above (please note the diastolic function could not be ascertained at that time as the patient was in atrial fibrillation) - Hold Lasix as noted above -Consideration for medication optimization (beta nivia, zaida/ARB, etc.) once more stable clinically with regards to his abdominal process -IVF as noted above Hyponatremia. Present on admission. Resolved. -Was 124 at time of admission, with rapid correction to 135 on 06/19. Sodium 134 today. * Potentially contributing to patient's altered mentation at time of presentation -Sodium at discharge on 06/01/2016 was 136 -Likely secondary to hypovolemia given response to isotonic fluids. -Continue to monitor closely Encephalopathy of uncertain etiology. Present on admission. Resolved -Likely multifactorial in this gentleman with acute GILMAR/uremia, hypoxemia, hypoperfusion in the setting of volume depletion and clinical CHF, and possible contribution from significant outpatient medications (gabapentin, trazodone, Ativan). -Continue to monitor closely Patient has a pacemaker, chronic. Uncertain initial indication per available records. -We will continue to monitor on telemetry as noted above Chest pressure. Present on admission. Resolved - Possibly secondary to anxiety or A. fib History of gastric bypass surgery and lost approximately 300 pounds. - Continue to monitor (especially as surgery is contemplating intervention for suspected mesh involvement) -TPN and nothing by mouth as noted above Hyperglycemia, acute. Present on admission. - A1c 5.3 last admission, repeat 5.1% -No need for intervention at this time given patient's bedside blood glucose readings BPH, chronic - Continue home tamsulosin PRN MEDICATIONS - Acetaminophen as needed for mild pain/fever/headache - Bowel regimen as needed - Antiemetic as needed Pain Evaluation: Adequate Pain Control GI Prophylaxis: H2 nivia VTE Prophylaxis: Sub-Q Heparin (Unfractionated) VTE Mechanical Devices: Intermittant Pneumatic CD Resuscitation Status: CPR: Attempt Resuscitation Attending Statement The patient was seen and examined together with Dr. Franz on 06/22/2016 and I agree with the history, exam and plan as outlined in the note above. . Cammie Franz DO June 22, 2016 08:21 Sanjay Stout MD June 24, 2016 07:46
[2016-06-22] MEDS: Lidocaine Topical 5% Patch TOPICAL SCH (18:25)
[2016-06-22] MEDS: Dextrose 10% 1,000 ML IV SCH (19:16)
--- NOTE | 2016-06-22 19:26 | PCM.PHAPRO ---
Progress Date of Service: June 22, 2016 Health care acquired Pneumonia TPN FOR 06/22 PARENTERAL NUTRITION ORDERS 2 - Standard Hang Time: 2100 Substrates Total kcal: 1320 AMINO ACIDS 60 g DEXTROSE 200 g Total Volume (mL): 1500 LIPIDS 40 g Sterile Water for Injection QS mL To Infuse Over (hrs): 24 Total Volume 1500 mL At at a rate of (mL/hr): 63 Additives Sodium Chloride 40 mEq "typical" daily requirements Sodium Acetate 40 mEq Sodium 50-120mEq Potassium Chloride 40 mEq Potassium 60-120mEq Potassium Phosphate mEq Phosphate 20-40mEq Calcium Gluconate 12 mEq Magnesium 8-32mEq Magnesium Sulfate 12 mEq Calcium 9-22mEq Acetate* 80-120mEq Chloride* 80-120mEq Regular Insulin units *Depending on acid-base status Famotidine mg Multivitamins 1 std dose Insulin Regimen Trace Elements 1 std dose none Thiamine mg Regular Low Intensity Subcut Folic Acid mg Regular Medium Intensity Subcut Ascorbic Acid mg Regular High Intensity Subcut Regular Insulin Infusion Other: 06/22 TPN FORMULA WILL BE THE SAME PREVIOUS DAY. Rio Heller [facility] June 22, 2016 19:26
--- NOTE | 2016-06-22 19:46 | NUR ---
TPN/no BM/Fistula/Dogs TPN continues to run. Fistula redressed with ostomy appliance this shift. 30ml dark green fluid out. Skin is excoriated around fistula. barrier wipes used to clean skin between dressing changes. Cardiac: Pt denies CP, tele afib 80-110 Resp: Pt denies SOB, SPO2 93% on 2.5LNC GI/: Pt denies N/V, No BM since admit, NPO for many days. Mirilax given this AM. Still no BM, discussed with Dr doll. Neuro: A&Ox3, NAIR pt confused at times and needs reorientation. Quite worried about his dogs this AM, worked with SW to contact kennel and help pt set up accommodation for his pets while he is hospitalized.
[2016-06-22] MEDS: Total Parenteral Nutrition 1 BAG IV SCH (20:10)
[2016-06-23] VITALS (9 sets, daily range): BP systolic 108–125; BP diastolic 63–86; PULSE 84–112; RESP 16–18; O2SAT 89–94
[2016-06-23] MEDS: Chlorhexidine 0.12% 15 mL Oral Solution MT SCH ×5 (00:13→19:48)
[2016-06-23 04:09] LABS: BASOPHILS % (AUTO) 0 % (0-3); EOSINOPHILS % (AUTO) 0 % (0-5); MONOCYTES % (AUTO) 7.4 % (4-12); Mean Corpuscular Hemoglobin 27.6 pg (27.0-35.0); Mean Corpuscular Volume 85.8 fL (81-100); NEUTROPHILS % (AUTO) 87.4 % (40-74); Platelet Count 327 bil/L (150-400)
--- NOTE | 2016-06-23 06:14 | NUR ---
Pain Pt c/o significant pain to arm throughout shift; oxycodone 10mg administered x2 this shift with relief upon reassessment. Pt cooperative and compliant this shift; at HS, pt attempted to get out of bed to go tend to dogs - pt reoriented to situation and reassured dogs were cared for in kennel as per report from day nurse: arrangements had been made prior in the day for dog care. VSS, tele afib 90s. Able to rest this shift. TPN infusing.
[2016-06-23 07:25] LABS: Magnesium 2.4 mg/dL (1.6-2.6); Phosphorus 5.2 mg/dL (2.5-4.9)
[2016-06-23] MEDS: predniSONE 20 mg Tablet PO SCH (08:12)
[2016-06-23] MEDS: Diltiazem CD 240 mg ER24 Capsule PO SCH (08:14)
[2016-06-23] MEDS: Heparin 5,000 Unit/mL Inj SUBQ SCH ×2 (08:14→19:46)
[2016-06-23] MEDS: Famotidine Inj 20 MG in IV Premix 1 EACH IV SCH (08:14)
[2016-06-23] MEDS: Polyethylene Glycol (PEG) 17 Gm Powder PO PRN (08:15)
[2016-06-23] MEDS: Fluticasone-Salmererol 250-50 Inhaler INHALATION SCH ×2 (08:15→19:46)
[2016-06-23] MEDS: Albuterol-Ipratropium 3 mL Inhalation Solution NEB SCH ×4 (08:26→20:07)
--- NOTE | 2016-06-23 09:13 | PCM.PNSURG ---
Subjective Visit Information: Reason for Visit Trilobar Pneumonia, Respiratory Failure Surgery/Surgery Date Post-Op Day # Date of Admission: June 18, 2016 at 06:01 Hospital Day # Subjective: hasn't had a BM for a few days, no n/v reported, on TPN, stomal bag is on EC fistula Objective Objective Awake in bed Abd: Stomal bag removed, obvious passage of flatus and greenish fluid from fistula, suture sticking out of EC fistula opening; no peritonitis Some skin erythema and excoriation around the EC fistula Vital Sign- Last 8 Hours Date Time Temp Pulse Resp B/P Pulse Ox O2 Delivery O2 Flow Rate FiO2 06/23/16 08:26 102 16 89 Room Air 06/23/16 08:01 36.4 96 16 125/80 90 Room Air 06/23/16 05:21 92 06/23/16 03:51 36.5 99 18 108/63 90 Room Air Intake and Output- Last 8 Hour 06/23/16 Cumulative From/Thru 07:00 06/18/16 04:23 - 06/23/16 06:28 Intake Total 1158 ml 87147 ml Output Total 450 ml 7080 ml Balance 708 ml 7757 ml Intake Oral 400 ml 2960 ml IV Total 758 ml 60604 ml Output Urine Total 450 ml 7000 ml Gastric Drainage Total 80 ml # Bowel Movements 0 Result Diagram: 06/23/16 0400 06/23/16 0400 Assessment & Plan Impression Low output EC fistula likely due to mesh erosion Multiple co-morbidity R pneumonia Problems: Plan Continue abx and TPN Await transfer to [facility] for EC fistula site VTE Prophylaxis: Sub-Q Heparin (Unfractionated) Resuscitation Status: CPR: Attempt Resuscitation John Desir MD June 23, 2016 09:13
--- NOTE | 2016-06-23 09:51 | DRSVH ---
PROCEDURE: X-RAY CHEST ONE VIEW, PORTABLE ([id number]) INDICATIONS: PNEUMONIA TECHNIQUE: One view of the chest was acquired. COMPARISON: [facility], CR, XR CHEST 1VW (PORTABLE), 06/21/2016, 5:00. FINDINGS: Surgical changes and devices: Stable position of right PICC. Lungs and pleura: Slight decrease in airspace opacity within the right upper lobe otherwise persisten t mid and basilar patchy air space opacities are present. No pneumothorax. Mediastinum: Mediastinal contours appear normal. Heart size is normal. Bones and chest wall: No suspicious bony lesions. Overlying soft tissues appear unremarkable. IMPRESSION: Slight decrease in confluent right upper lobe airspace opacity otherwise persistent pulmo nary opacities present likely related to multiple old pneumonia. Dictated by: Earl ALFARO Interpreted: Blanca Phoenix MD on 06/23/2016 at 9:50 Transcribed by: JERSON on 06/23/2016 at 9:51 Approved by: Blanca Phoenix M.D. on 06/24/2016 at 9:09
[2016-06-23] MEDS ORDERED: oxyCODONE-Acetamin 5-325 mg Tablet PO PRN (10:05)
--- NOTE | 2016-06-23 11:05 | PCM.PHAPRO ---
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 Fluids/VS VSS, ~8 Liters fluid overload, I=O last 24h p/ Consider reducing fluid delivery Continue ~ 1/3 NS equivalent solution II. Chem Anion gap metabolic acidosis - nephrology managing p/ Continue 1:1 Cl to Ac salts Hyperphosphatemia - continue to hold SCr ~ 3.0 and relatively stable p/ Keep Mg>2, K>4 and consider restricting fluids further III. Glycemic control BG >150 today p/ Add 10 units insulin to TPN and start SQ insulin Regular, low intensity IV. Substrate/Misc Advancing today per rec's of Clinical Nutrition PARENTERAL NUTRITION ORDERS 23-Jun-16 Standard Hang Time: 2100 Substrates Total kcal: 1715 AMINO ACIDS 70 g DEXTROSE 275 g Total Volume (mL): 1500 LIPIDS 50 g Sterile Water for Injection QS mL To Infuse Over (hrs): 24 Total Volume 1500 mL At at a rate of (mL/hr): 63 Additives Sodium Chloride 40 mEq "typical" daily requirements Sodium Acetate 40 mEq Sodium 50-120mEq Potassium Chloride 40 mEq Potassium 60-120mEq Potassium Phosphate mEq Phosphate 20-40mEq Calcium Gluconate 12 mEq Magnesium 8-32mEq Magnesium Sulfate 12 mEq Calcium 9-22mEq Acetate* 80-120mEq Chloride* 80-120mEq Regular Insulin units *Depending on acid-base status Famotidine mg Multivitamins 1 std dose Insulin Regimen Trace Elements 1 std dose none Thiamine mg Regular Low Intensity Subcut Folic Acid mg Regular Medium Intensity Subcut Ascorbic Acid mg Regular High Intensity Subcut Regular Insulin Infusion Other: Special Instructions: To be infused via central line only. For delay or inturruption of TPN contact the pharmacist for alternative replacement solution. Signature Date: JAYLEN LOPEZ 2002 Dick Ramirez Pharm D June 23, 2016 11:05
--- NOTE | 2016-06-23 11:42 | PCM.PNNEPH ---
Subjective Date of Service June 23, 2016 Subjective C/o abd pain, no BM. no F/C/N/V. Kidney function essentially unchanged. Exam Vital Signs Vital Sign - Last Date Time Temp Pulse Resp B/P Pulse Ox O2 Delivery O2 Flow Rate FiO2 06/23/16 08:26 102 16 89 Room Air 06/23/16 08:01 36.4 125/80 06/22/16 16:29 2.00 06/18/16 15:00 35 Intake and Output 06/22/16 06/22/16 06/23/16 Cumulative From/Thru 15:00 23:00 07:00 06/18/16 04:23 - 06/23/16 06:28 Intake Total 1443 ml 1158 ml 42012 ml Output Total 600 ml 450 ml 7080 ml Balance 843 ml 708 ml 7757 ml Intake Oral 520 ml 400 ml 2960 ml IV Total 923 ml 758 ml 83628 ml Output Urine Total 600 ml 450 ml 7000 ml Gastric Drainage Total 80 ml # Bowel Movements 0 Exam General: AAOx3,NAD, comfortably at the moment. Eyes: PERRLA, EOMI, anicteric sclera, noninjected conjunctiva. HEENT: Normocephalic, atraumatic. mild pallor, no icteric sclerae. Neck: Supple with full range of motion. Cardiovascular: irregular rhythm, variable S1, S2. Pulmonary: coarse crackles B/L, occasional expiratory wheezing noted. Abdomen: Soft, tenderness at midabdomen, EC fistula noted stromal bag placed with greenish fluid. Extremities: no edema, cyanosis, no rash. : Elizondo cath in place, yellowish urine. Lab and Diagnostics Result Diagram: 06/23/16 0400 06/23/16 0400 Microbiology Respiratory viral panel positive for RSV (please note this was positive in 2016) Gram stain of abdominal pus with gram variable rods with ID and sensitivity to follow Preliminary urine culture showing Proteus mirabilis sensitive to ertapenem * Please note: Urine culture 12/16/13 showed velazquez-resistant Proteus mirabilis MRSA nasal negative Strep urine antigen negative Sputum culture shows normal jarvis X-Rays, CTs and MRIs CT abdomen and pelvis without contrast 06/18/16 IMPRESSION: Small amount of contrast material seen within the midline anterior abdominal wall wound, presumably leaked from a 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 Possible location in the midline anterior abdominal wall on image 44 as above, however technically indeterminate and recommend clinical correlation. No extraluminal intraperitoneal contrast material. Small bilateral pleural effusions with adjacent atelectasis, right greater left. Cardiomegaly. Chest x-ray 06/18/2016 at 0429 IMPRESSION: Support equipment as detailed above. Right perihilar consolidation, which could represent multifocal pneumonia and/ or aspiration. Recommend clinical correlation and short interval radiographic surveillance to document resolution after treatment and exclude abnormal soft tissue/neoplasm. PROCEDURE: X-RAY CHEST ONE VIEW, PORTABLE IMPRESSION: Bilateral pneumonia, increased involving the right upper lobe when compared to prior examination. Approved by: Wendie Villar MD, PhD on 06/21/2016 at 15:04 12-lead ECG 06/18/16 Atrial fibrillation with a rate of 120, ventricular premature complexes, right bundle branch block and left anterior fascicular block Cardiac Echo Impressions Please note following echo is from 05/23/16: Interpretation Summary Left ventricular systolic function is normal without focal wall motion abnormalities. The ejection fraction is estimated to be 60-65%. LVEF has not changed since priro study. Left ventricular wall thickness is mild-moderately increased. The right ventricle is at the upper limits of normal in size. The right ventricular systolic function is normal. Right ventricular systolic pressure is estimated to be 20 mmHg plus the clinically estimated CVP which cannot be estimated on this exam. The left atrium is severely dilated. The right atrium is severely dilated. There is mild mitral regurgitation. There is no other significant valvular heart disease. The aortic root is mildly dilated. The ascending aorta is mildly enlarged. The aortic arch is mildly enlarged. Plan Impression 1. GILMAR on CKD due to ATN/UTI. h/o urinary retention. 2. Enterocutaneous fistula. 3. UTI. 4. High anion gap and non gap metabolic acidosis. 5. COPD. 6. Afib. 7. PTSD. 8. Hypertension with hypertensive nephrosclerosis. 9. Hyperphosphatemia Plan: Add more sodium acetate in TPN. Low K/PO4 concentration. Double concentrate IV meds and TPN to minimize fluid intake. Repeat UA. DW pharmacist. Jose Valles MD June 23, 2016 11:42
[2016-06-23] MEDS: Ertapenem Inj 500 MG in 0.9% Sodium Chloride 50 ML IV SCH (13:20)
[2016-06-23] MEDS: Insulin REGULAR SS Low-Dose SUBQ PRN ×2 (13:22→19:53)
--- NOTE | 2016-06-23 13:23 | PROG NOTE ---
[address] [address] PROGRESS NOTE PATIENT: JAYLEN LOPEZ : 1940 MR#: [id number] ADMIT: 06/18/2016 JOB ID: [id number] DATE: 06/23/2016 INFECTIOUS DISEASE FOLLOWUP NOTE: REASON FOR FOLLOWUP: ESBL klebsiella urinary tract infection with enterocutaneous fistula and possible aspiration type bibasilar pneumonia. INTERVAL HISTORY: Overnight, the patient has been relatively stable. He continues to receive prednisone for a presumed COPD exacerbation, as well as TPN to rest his gut, given his enterocutaneous fistula, and he is still on the ertapenem for treatment of a complex UTI and possible pneumonia. The patient is tolerating all his therapies well. He has no fever or chills today. No significant change in his compromised respiratory status and perhaps more drainage from his enterocutaneous fistula. PHYSICAL EXAMINATION: Reveals an afebrile gentleman. Temperature 36.4, pulse 102, respiratory rate 16, blood pressure 125/80. He is saturating 89% to 91% on room air. He is somnolent much of the time. Oral cavity negative. He is edentulous. His lungs are with bibasilar crackles. Abdomen is notable for an enterocutaneous fistula, which seems to be producing more air than yellow material. Remainder of the abdomen is fairly benign. The patient still has a Elizondo catheter. LABORATORIES: Include white count 7200 today and stable. Mild left shift likely due to steroids. Creatinine 3.08. LFT are normal. Hemoglobin A1c on admission was 5.1, though his blood glucose is now 178, likely due to the effect of steroids. His procalcitonin is down to 0.19. It was as high at one point to 0.4. Serologic studies include negative urine legionella and pneumococcal antigens. Blood cultures likewise negative. Urine grew Proteus mirabilis, which is an extremely resistant ESBL organism, sensitive only to carbapenems and Zosyn. IMAGING: His most recent chest radiograph dated today shows a decrease in the right upper lobe infiltrate. I personally reviewed the chest x-ray. It is difficult to tell how much of this is scarring and old disease versus new but he certainly has extensive right greater than left infiltrate, some of which appear more like atelectasis or scar than infiltrate but nonetheless, considerable infiltrate on the right. IMPRESSION: This is an unfortunate 76-year-old gentleman who has multiple ongoing overlapping and intertwined medical problems. He has an extended spectrum beta lactamase proteus urinary tract infection we are treating with ertapenem. In addition, it looks like he has a right-sided aspiration pneumonia, which should also be effectively treated with ertapenem. Unfortunately, he has an enterocutaneous fistula arising from what is probably an infected mesh in his anterior abdominal wall. This is an extraordinarily difficult problem, which will eventually likely require surgical exploration and debridement. He is currently receiving total parenteral nutrition in an attempt to rest his gut and improve the enterocutaneous fistula but this is problematic because he is also receiving broad-spectrum antibiotics. To cap off his problems, he is receiving prednisone for presumed chronic obstructive pulmonary disease exacerbation which further increases his risk of opportunistic superinfection with organisms such as juan pablo. RECOMMENDATIONS: 1. Will continue with ertapenem. 2. The total course of ertapenem will probably be on the order of 10 days, which would be about four or five days from now. 3. Will continue with the renally adjusted dose of ertapenem, given his renal insufficiency. 4. A transfer to the [place] is still under active consideration for this complex patient. 5. Should he develop any unexplained fevers or worsening leukocytosis, fungal blood cultures and Fungitell should be obtained, as it is likely that he will develop disseminated candidiasis or fungemia on the basis of the above-mentioned risk factors, including high-dose steroids, TPN, broad-spectrum antibiotics and renal insufficiency.
[2016-06-23] MEDS: LORazepam 0.5 mg Tablet PO PRN ×2 (13:28→21:20)
[2016-06-23] MEDS: Dextrose 10% 1,000 ML IV SCH (13:28)
--- NOTE | 2016-06-23 14:54 | PCM.PNMED ---
Subjective Date of Service June 23, 2016 Subjective Mr. Benítez is a 76 year old male with a history of COPD, multiple episodes of pneumonia, Afib with RVR, chronic renal failure, PTSD, pacemaker, and HTN, hospitalized here from 05/21-06/01/16 with respiratory failure and hospitalized at the [facility] PTSD unit in [place] for 2 weeks with discharge on 05/19/16, who presented to the ER via EMS after staff at [facility] found him unresponsive with decreased O2 saturation just prior to arrival. Today is hospital day 6. Today, he reports that he currently does not have abdominal pain. His arms intermittently feel weak. His left shoulder is not bothering him this morning. He continues to have a cough. He feels a little better today. Exam Vital Signs Vital Sign - Last Date Time Temp Pulse Resp B/P Pulse Ox O2 Delivery O2 Flow Rate FiO2 06/23/16 12:45 Room Air 06/23/16 11:45 36.6 110 18 111/72 90 06/22/16 16:29 2.00 06/18/16 15:00 35 Intake and Output 06/22/16 06/22/16 06/23/16 Cumulative From/Thru 15:00 23:00 07:00 06/18/16 04:23 - 06/23/16 06:28 Intake Total 1443 ml 1158 ml 46936 ml Output Total 600 ml 450 ml 7080 ml Balance 843 ml 708 ml 7757 ml Intake Oral 520 ml 400 ml 2960 ml IV Total 923 ml 758 ml 30314 ml Output Urine Total 600 ml 450 ml 7000 ml Gastric Drainage Total 80 ml # Bowel Movements 0 Exam General/Constitutional: Thin, well developed, appropriately interactive. No acute distress. Head / Eyes: Atraumatic, Normocephalic. Normal extraocular movements. Sclerae are anicteric, conjunctiva are not injected Neck: Supple with full range of motion. Resp: Bilateral diffuse rales, worse at lung bases. Normal respiratory effort on supplemental oxygen CV: Irregularly irregular, systolic ejection murmur grade 2/6. Radial pulses are 2+ bilaterally Abdomen: Soft, non-tender,surrounding area, No guarding, No rebound, No distention Extremities: Bilateral mild non-pitting edema of legs up to mid lower leg , No tenderness. Skin: Warm, Dry, No cyanosis, erythema of anterior abdomen midline with an elevation midline topped by a draining wound/fistula covered by a wound bag with green fluid. Neurologic: Grossly intact Psych: Appropriate mood and affect. Behavior appropriate for age. IVs and Medications Medications Reviewed: Medications were reviewed in detail Lab and Diagnostics Result Diagram: 06/23/16 0400 06/23/16 0400 Microbiology Respiratory viral panel positive for RSV (please note this was positive in 2016) Gram stain of abdominal pus with gram variable rods with ID and sensitivity to follow Preliminary urine culture showing Proteus mirabilis sensitive to ertapenem * Please note: Urine culture 12/16/13 showed velazquez-resistant Proteus mirabilis MRSA nasal negative Strep urine antigen negative Sputum culture shows normal jarvis X-Rays, CTs and MRIs CT abdomen and pelvis without contrast 06/18/16 IMPRESSION: Small amount of contrast material seen within the midline anterior abdominal wall wound, presumably leaked from a 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 Possible location in the midline anterior abdominal wall on image 44 as above, however technically indeterminate and recommend clinical correlation. No extraluminal intraperitoneal contrast material. Small bilateral pleural effusions with adjacent atelectasis, right greater left. Cardiomegaly. Chest x-ray 06/18/2016 at 0429 IMPRESSION: Support equipment as detailed above. Right perihilar consolidation, which could represent multifocal pneumonia and/ or aspiration. Recommend clinical correlation and short interval radiographic surveillance to document resolution after treatment and exclude abnormal soft tissue/neoplasm. PROCEDURE: X-RAY CHEST ONE VIEW, PORTABLE IMPRESSION: Bilateral pneumonia, increased involving the right upper lobe when compared to prior examination. Approved by: Wendie Villar MD, PhD on 06/21/2016 at 15:04 12-lead ECG 06/18/16 Atrial fibrillation with a rate of 120, ventricular premature complexes, right bundle branch block and left anterior fascicular block Cardiac Echo Impressions Please note following echo is from 05/23/16: Interpretation Summary Left ventricular systolic function is normal without focal wall motion abnormalities. The ejection fraction is estimated to be 60-65%. LVEF has not changed since priro study. Left ventricular wall thickness is mild-moderately increased. The right ventricle is at the upper limits of normal in size. The right ventricular systolic function is normal. Right ventricular systolic pressure is estimated to be 20 mmHg plus the clinically estimated CVP which cannot be estimated on this exam. The left atrium is severely dilated. The right atrium is severely dilated. There is mild mitral regurgitation. There is no other significant valvular heart disease. The aortic root is mildly dilated. The ascending aorta is mildly enlarged. The aortic arch is mildly enlarged. Assessment & Plan 76-year-old male with past medical history of hypertension, PTSD, depression, pacemaker placement and history of pneumonia admitted for shortness of breath and cough concern for pneumonia. Acute on chronic hypoxic respiratory failure. Present on admission. - Patient is not on home O2, intubated a.m. 06/18 in the emergency room, (and extubated 06/18 afternoon at 1540). However, patient has probable chronic obstructive pulmonary disease. - Extensive right lung widespread consolidation on chest x-ray - Empiric cefepime and Flagyl, and vancomycin were initiated at time of admission. (Vancomycin stopped 06/19 given negative MRSA screen and cefepime and Flagyl stopped 06/20/16 due to better coverage with ertapenem) - Microbiological workup as noted above - Hold Lasix for now given acute kidney injury - Solu-Medrol 40 mg IV every 12 hours in the setting of COPD (possible exacerbation). Started taper.. Decreased Solu-Medrol to 40 mg IV once daily on 06/21/16. Continue taper with transition to PO prednisone 40 mg once daily for 3 days. - DuoNebs as needed Healthcare associated pneumonia. Presumed acute. Present on admission. -Please note RSV positive -Appreciate the expertise of the pulmonary service in the care of this patient -Continue antibiotic coverage as above -Continue with supportive treatment -Infectious disease consulted. Their time and recommendations are appreciated. Enterocutaneous fistula, unknown chronicity. Present on admission. -Suspect associated with previous abdominal surgery involving mesh. -Some suspicion that he will proceed to the OR, but defer to surgery in that regard. -Surgery has been consulted, and we appreciate their expertise in the care of this patient. -Wound care to evaluate his fistula, and continue in his evaluation throughout hospitalization -Continue TPN, pharmacy consulted, their time and recommendations appreciated. -Nothing by mouth except for medications, sips, and ice chips -Pain control with narcotic medication by mouth (consideration for IV if unable to tolerate by mouth). -PICC line placement 06/21/16 to replace prior IJ and for TPN -Continue working towards transfer to [place] for optimal continuity of care for patient. Awaiting an open bed. Abdominal wall cellulitis, presumed acute. Present on admission -Associated with enterocutaneous fistula -Empiric antibiotics as noted above -Surgical intervention (possible) as noted PTSD with anxiety and depression, chronic - Recently completed 2 week stay at [facility] in [place] for same - Continue home medications have been in use at the SNF since his last hospitalization * Gabapentin, prazosin, trazodone, melatonin, citalopram, Ativan -Tapering steroid down as above -Continue reorienting patient and environmental modifications Chronic pain - Switched oxycodone to oxycodone with acetaminophen - Added lidocaine patch once daily - K pad for additional relief for left shoulder pain - Reassess tomorrow and consider adding diclofenac topical gel as needed Acute kidney injury in the setting of chronic kidney disease stage IV. Present on admission, improving. - Suspect baseline closer to 1.7. - CKD likely secondary to his hypertension (nephrosclerosis) - Patient was discharged last on 06/01/2016 (from [facility]) with creatinine of 2.92, creatinine at time of admission was 4.53 but now 3.08 - Renal U/S on last admission did not show a cause for renal insufficiency - Nephrology following, and we appreciate their expertise - Hold Lasix as noted - Discontinued fluids - TPN started as above Atrial fibrillation with rapid ventricular response. Acute RVR on chronic disease. Present on admission. -Patient without home medications the morning of day of admission, and is infectious/hypoxic respiratory failure presentation may have precipitated RVR. -Resumed home diltiazem 240 mg on 06/19/16 due to low blood pressure and increased rate -Metoprolol tartrate 5 mg IV pushes available for total of 3 doses -Consideration for anticoagulation as the patient's Pa Vasc score is 2-3 ( hypertension, age, question of CHF). -Continue to monitor on telemetry Possible acute diastolic congestive heart failure was raised in previous notes. - BNP greater than 15,000. Admission note mentioned JVD present. This would indicate clinical CHF. - Echo from last hospitalization as noted above (please note the diastolic function could not be ascertained at that time as the patient was in atrial fibrillation) - Hold Lasix as noted above - Consideration for medication optimization (beta nivia, zaida/ARB, etc.) once more stable clinically with regards to his abdominal process - IVF as noted above - Monitor lower extremity edema, added SIDNEY hose Anion gap metabolic acidosis. Acute, present on admission. -Anion gap today is 19 after correction for albumin -Likely associated with GILMAR, potential contributions from infections as noted and/or respiratory failure -Ingestions seem less likely at this time -Continue to monitor labs Bacteriuria, unclear if represents acute UTI versus colonization. Present on admission. -Please note the patient has history of velazquez resistant Proteus mirabilis in 2013 -Please note that the patient's urine culture is growing Proteus sensitive to ertapenem -Current cefepime and Flagyl regimen ineffective against suspected velazquez resistant microbe. Ertapenem as above. -Continue patient in full contact precautions. * Infectious disease consulted and following. Their time and recommendations are appreciated. Hyponatremia. Present on admission. Resolved. -Was 124 at time of admission, with rapid correction to 135 on 06/19. Sodium 134 today. * Potentially contributing to patient's altered mentation at time of presentation -Sodium at discharge on 06/01/2016 was 136 -Likely secondary to hypovolemia given response to isotonic fluids. -Continue to monitor closely Encephalopathy of uncertain etiology. Present on admission. Resolved -Likely multifactorial in this gentleman with acute GILMAR/uremia, hypoxemia, hypoperfusion in the setting of volume depletion and clinical CHF, and possible contribution from significant outpatient medications (gabapentin, trazodone, Ativan). -Continue to monitor closely Patient has a pacemaker, chronic. Uncertain initial indication per available records. -We will continue to monitor on telemetry as noted above Chest pressure. Present on admission. Resolved - Possibly secondary to anxiety or A. fib History of gastric bypass surgery and lost approximately 300 pounds. - Continue to monitor (especially as surgery is contemplating intervention for suspected mesh involvement) -TPN and nothing by mouth as noted above Hyperglycemia, acute. Present on admission. - A1c 5.3 last admission, repeat 5.1% -No need for intervention at this time given patient's bedside blood glucose readings BPH, chronic - Continue home tamsulosin PRN MEDICATIONS - Acetaminophen as needed for mild pain/fever/headache - Bowel regimen as needed - Antiemetic as needed Pain Evaluation: Adequate Pain Control GI Prophylaxis: H2 nivia VTE Prophylaxis: Sub-Q Heparin (Unfractionated) VTE Mechanical Devices: Intermittant Pneumatic CD Resuscitation Status: CPR: Attempt Resuscitation Attending Statement The patient was seen and examined together with Dr. Franz on 06/23/2016 and I agree with the history, exam and plan as outlined in the note above. . Cammie Franz DO June 23, 2016 14:54 Sanjay Stout MD June 24, 2016 07:47
[2016-06-23] MEDS: Lidocaine Topical 5% Patch TOPICAL SCH (15:58)
--- NOTE | 2016-06-23 20:04 | NUR ---
Fistula Cardiac: Pt denies CP, tele afib 80-110 up to 150 with activity today. Resp: sp02 low 90s on RA GI/: Pt denies nausea and vomiting, schaffer catheter draining to\ gravity. Abdominal fistula bubbling green liquid, bag changed twice today. Barrior wipes used to protect skin. 30 ml out this shift. No BM, mirilax given. Po zofran given this afternoon for nausea with good effect. Neuro: AOx3 at times, confused an unoriented at times, reorientable and remembers staff members. able to NAIR, moves independently in bed. Ativan given for anxiety.
[2016-06-23] MEDS: Total Parenteral Nutrition 1 BAG IV SCH (20:58)
[2016-06-24] VITALS (9 sets, daily range): BP systolic 100–122; BP diastolic 54–79; PULSE 84–117; RESP 16–20; O2SAT 82–94
[2016-06-24] MEDS: Chlorhexidine 0.12% 15 mL Oral Solution MT SCH ×3 (00:30→08:30)
[2016-06-24] MEDS: Insulin REGULAR SS Low-Dose SUBQ PRN (04:06)
--- NOTE | 2016-06-24 04:41 | NUR ---
NOC: Tele Afib- pt denies chest pain/ discomfort. When awake sp02 maintained on RA. when asleep sp02 decreased to mid- low 80s. pt placed on 2 L NC. sats currently low 90s. PRN PO Ativan given x1 for increase in anxiety. Dressing to fistula remains intact. TPN infusing as ordered. Blood glucoses checked q6hrs. Blood sugars have been in the 170s- insulin given per s/s
[2016-06-24 05:06] LABS: Magnesium 2.5 mg/dL (1.6-2.6); Phosphorus 4.7 mg/dL (2.5-4.9)
--- NOTE | 2016-06-24 07:53 | NUR ---
NUTRITION FOLLOW UP: ASSESS: 76 YO male readmitted with sepsis, pneumonia, pyelonephritis, and acute on chronic kidney injury in patient with chronic stage 4 kidney disease. Chest x-ray showing extensive right lung widespread consolidation; RSV positive. Pt now with enterocutaneous fistula associated with previous abdominal surgery involving mesh. There is some suspicion that he require surgical intervention. TPN started 06/20 due to need for bowel rest; surgery following. Nephrology is following for CKD stg 4. Pt awaiting bed at [place]. Pt with some confusion per notes. 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 DIET: NPO. TPN: 275 g Dex, 50 g Lipids, 70 g AA providing 1715kcal and 70g pro (~75% kcal and 100% pro needs). LABS: Reviewed. CO2 16, BUn 81, Cr 2.97, Glu 174, Alb 2.7. MEDICATIONS: Reviewed. Solu-medrol decreasing, insulin. GI: No BM noted since admit x 6 D. SKIN: WC following for Enterocutaneous fistula. Fistula appliance noted to be leaking. Excoriated skin treated with stoma powder and skin barrier for crusting. Replaced fistula bag. ANTHROPOMETRICS: Current Wt: 90.2 kg, BMI: 28.0 kg/m2. IBW: 75.45 kg, Admit wt: 84.3 kg. ESTIMATED NEEDS (CKD/FISTULA): Calories: 1611-2223 kcal/day (25-35 kcal/kg admit BW) Protein: 65-85 g/day (0.8-1.0 g/kg BW) Fluids: 1850-2100ml/day (22-25ml/kg) or per nephrology NUTRITION DIAGNOSIS: 1) Inadequate oral intake related to inability to consume sufficient energy, as evidenced by NPO status - PERSISTS. 2) Increased nutrient needs related to wound, acute on chronic stage 4 renal disease, as evidenced by multiple electrolyte abnormalities, nephrology and surgery consults - PERSISTS. INTERVENTION: 1) Now that refeeding risk resolved, recommend advance TPN to goal: 375 g Dex, 80g AA and 60g lipids providing 2110 kcal, 80 g protein; meeting 100% calorie/protein needs. 2) Adjust TPN macronutrients based on labs/POC. MONITOR/EVALUATE: NPO status, labs, TPN tolerance/advance, GI/nutrition status. Follow per high nutrition risk guidelines.
[2016-06-24] MEDS: Albuterol-Ipratropium 3 mL Inhalation Solution NEB SCH ×2 (08:03→12:29)
[2016-06-24] MEDS: predniSONE 20 mg Tablet PO SCH (08:39)
[2016-06-24] MEDS: Heparin 5,000 Unit/mL Inj SUBQ SCH (08:40)
[2016-06-24] MEDS: Fluticasone-Salmererol 250-50 Inhaler INHALATION SCH (08:44)
[2016-06-24] MEDS: Lidocaine Topical 5% Patch TOPICAL SCH (08:44)
--- NOTE | 2016-06-24 08:49 | NUR ---
Spoke with Montse at [facility] in patient access and she is working with Surgical team to coordinate with for transfer of patient if possible. She needed 's pager # and the surgeon from [place] will be contacting him directly. Updated HOME HEALTH AIDE
[2016-06-24] MEDS: Diltiazem CD 240 mg ER24 Capsule PO SCH (08:55)
[2016-06-24] MEDS: LORazepam 0.5 mg Tablet PO PRN (08:55)
[2016-06-24] MEDS: Dextrose 10% 1,000 ML IV SCH (10:26)
[2016-06-24] MEDS: Famotidine Inj 20 MG in IV Premix 1 EACH IV SCH (10:28)
--- NOTE | 2016-06-24 10:33 | NUR ---
Verbally inappropriate Pt verbally inappropriate with this RN, called this RN a bitch for not bringing in another cup of ice. This RN unaware pt was out of ice. Called [facility] [employer] STAFF OFFICER to help while hanging bag of protonix and D5. Encouraged pt this RN would help him after programing pump. Pt calling MDs names, RN names and [facility] [employer] STAFF OFFICER names. [facility] [employer] STAFF OFFICER brought ice cup in after [facility] [employer] STAFF OFFICER was done with other pt. Pt is not appropriate during this shift. MD notified Care continues.
--- NOTE | 2016-06-24 10:54 | PCM.PNSURG ---
Subjective Date of Service: June 24, 2016 Date of Service: June 24, 2016 Visit Information: Reason for Visit Trilobar Pneumonia, Respiratory Failure Surgery/Surgery Date Post-Op Day # Date of Admission: June 18, 2016 at 06:01 Hospital Day # Subjective: Continues to remain in bed with. Still has not had a bowel movement, he is passing gas. He states abdominal pain and tenderness. States he does not wish to remain in this hospital and remains verbally abusive to nursing staff. During today's interview he was pleasant. Primary status transferred to assisted facility Objective Vital Sign- Last 8 Hours Date Time Temp Pulse Resp B/P Pulse Ox O2 Delivery O2 Flow Rate FiO2 06/24/16 08:10 36.5 117 18 109/72 90 Nasal Cannula 3.00 06/24/16 08:00 108 06/24/16 07:50 93 16 94 Room Air 06/24/16 06:06 84 06/24/16 03:29 36.5 86 18 100/58 93 Nasal Cannula 2.00 Intake and Output- Last 8 Hour 06/24/16 Cumulative From/Thru 07:00 06/18/16 04:23 - 06/24/16 06:07 Intake Total 707 ml 22427 ml Output Total 60 ml 7840 ml Balance 647 ml 9856 ml Intake Oral 50 ml 3610 ml IV Total 657 ml 91528 ml Output Urine Total 60 ml 7760 ml Gastric Drainage Total 80 ml # Bowel Movements 0 General: Alert Lungs: Normal Air Movement Abdomen: Appropriately tender SURGICAL WOUND : Wound Location/Description Stomal bag in place, continues to drain minimal amount greenish fluid from fistula. Some surrounding skin erythema. Result Diagram: 06/24/16 0400 06/24/16 0400 Assessment & Plan Impression Assessment and Plan: 1. 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 Healthcare associated pneumonia 3. Acute kidney injury in the setting of chronic kidney disease stage IV 4. Atrial fibrillation with rapid ventricular response 5. Anion gap metabolic acidosis 6. Bacteriuria 7. Hyponatremia 8. Encephalopathy 9. PTSD with anxiety and depression Problems: VTE Prophylaxis: Sub-Q Heparin (Unfractionated) Resuscitation Status: CPR: Attempt Resuscitation Attending Statement: I agree with Dr. Marx's assessment and plan. Await transfer to [facility]. BRANDON MARX DO June 24, 2016 10:13 John Desir MD June 26, 2016 16:08
--- NOTE | 2016-06-24 12:06 | NUR ---
Social Work: Readiness for Discharge D: Pt discussed in am rounds. Pt is awaiting surgery at the [facility] for a fistula repair. Case Management KATELYN and have been in contact with the [facility] who states that they do not have beds available for pt's transfer. The patient will need to discharge back to [facility] and follow up with the [facility] Outpatient coordinator to schedule this surgery. Pt is currently on TPN and IV ABX. LOGISTICS PLANNER met with the pt at bedside to discuss discharge back to [facility]. [facility] but agreeable to discharge back to [facility] after a conversation with . LOGISTICS PLANNER spoke with Ayala at [facility] who states that they can accept the patient back but will need orders by 1:00pm to order the TPN. LOGISTICS PLANNER updated MD on this and is writing orders. A: Pt who will require a return to halfway based on clinical status. P: Anticipate pt to return back to [facility] with Dr. Webb to follow; LOGISTICS PLANNER to fax orders and arrange for transport once orders are finalized. NATALIE Matias Addendum: 06/24/16 at 1347 by TROY VICKERS Orders have been faxed and NATALIE confirmed they have been received by Ayala at [facility]. Per EMR review, pt is able to transport via cabulance and does not require BLS transport. [facility] is calling to arrange for transportation and will update LOGISTICS PLANNER. NATALIE met with pt at bedside, per patient's request. He is very concerned about his Medicare days and not receiving a bill for his co-pay. LOGISTICS PLANNER spoke with Ayala at [facility] who states that the pt has used 16 of his 100 days of coverage. Pt update of this and wanting to leave [facility] before his 20 days of 100 percent coverage are up. He is willing to go for several days to allow [facility] to assist him in getting setup for home TPN (if possible) and finish his course of IV ABX.
[2016-06-24] MEDS ORDERED: LORA0.5T PO (12:14)
[2016-06-24] MEDS ORDERED: GABA300C PO (12:14)
[2016-06-24] MEDS ORDERED: PRED-508 PO (12:14)
[2016-06-24] MEDS ORDERED: OXYC1TAB24 PO (12:14)
[2016-06-24] MEDS ORDERED: ADV250INH INHALATION (12:14)
[2016-06-24] MEDS ORDERED: MELA1TAB9 PO (12:14)
[2016-06-24] MEDS ORDERED: Ferric Sod Gluc Complex Inj 125 MG in 0.9% Sodium Chloride 100 ML IV ONE (12:15)
--- NOTE | 2016-06-24 12:20 | PCM.PNNEPH ---
Subjective Date of Service June 24, 2016 Subjective Verbally abuse to nursing staffs. Reports abd pain, no fever/chills. Exam Vital Signs Vital Sign - Last Date Time Temp Pulse Resp B/P Pulse Ox O2 Delivery O2 Flow Rate FiO2 06/24/16 11:57 37.0 104 18 122/79 91 Room Air 06/24/16 08:10 3.00 06/18/16 15:00 35 Intake and Output 06/23/16 06/23/16 06/24/16 Cumulative From/Thru 15:00 23:00 07:00 06/18/16 04:23 - 06/24/16 06:07 Intake Total 2152 ml 707 ml 58144 ml Output Total 700 ml 60 ml 7840 ml Balance 1452 ml 647 ml 9856 ml Intake Oral 600 ml 50 ml 3610 ml IV Total 1552 ml 657 ml 69292 ml Output Urine Total 700 ml 60 ml 7760 ml Gastric Drainage Total 80 ml # Bowel Movements 0 Exam General: AAOx3,NAD, comfortably at the moment. Eyes: PERRLA, EOMI, anicteric sclera, noninjected conjunctiva. HEENT: Normocephalic, atraumatic. mild pallor, no icteric sclerae. Neck: Supple with full range of motion. Cardiovascular: irregular rhythm, variable S1, S2. Pulmonary: coarse crackles B/L, occasional expiratory wheezing noted. Abdomen: Soft, tenderness at midabdomen, EC fistula noted stomal bag placed with greenish fluid. Extremities: no edema, cyanosis, no rash. : Elizondo cath in place, yellowish urine. Lab and Diagnostics Result Diagram: 06/24/16 0400 06/24/16 0400 Microbiology Respiratory viral panel positive for RSV (please note this was positive in 2016) Gram stain of abdominal pus with gram variable rods with ID and sensitivity to follow Preliminary urine culture showing Proteus mirabilis sensitive to ertapenem * Please note: Urine culture 12/16/13 showed velazquez-resistant Proteus mirabilis MRSA nasal negative Strep urine antigen negative Sputum culture shows normal jarvis X-Rays, CTs and MRIs CT abdomen and pelvis without contrast 06/18/16 IMPRESSION: Small amount of contrast material seen within the midline anterior abdominal wall wound, presumably leaked from a 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 Possible location in the midline anterior abdominal wall on image 44 as above, however technically indeterminate and recommend clinical correlation. No extraluminal intraperitoneal contrast material. Small bilateral pleural effusions with adjacent atelectasis, right greater left. Cardiomegaly. Chest x-ray 06/18/2016 at 0429 IMPRESSION: Support equipment as detailed above. Right perihilar consolidation, which could represent multifocal pneumonia and/ or aspiration. Recommend clinical correlation and short interval radiographic surveillance to document resolution after treatment and exclude abnormal soft tissue/neoplasm. PROCEDURE: X-RAY CHEST ONE VIEW, PORTABLE IMPRESSION: Bilateral pneumonia, increased involving the right upper lobe when compared to prior examination. Approved by: Wendie Villar MD, PhD on 06/21/2016 at 15:04 12-lead ECG 06/18/16 Atrial fibrillation with a rate of 120, ventricular premature complexes, right bundle branch block and left anterior fascicular block Cardiac Echo Impressions Please note following echo is from 05/23/16: Interpretation Summary Left ventricular systolic function is normal without focal wall motion abnormalities. The ejection fraction is estimated to be 60-65%. LVEF has not changed since priro study. Left ventricular wall thickness is mild-moderately increased. The right ventricle is at the upper limits of normal in size. The right ventricular systolic function is normal. Right ventricular systolic pressure is estimated to be 20 mmHg plus the clinically estimated CVP which cannot be estimated on this exam. The left atrium is severely dilated. The right atrium is severely dilated. There is mild mitral regurgitation. There is no other significant valvular heart disease. The aortic root is mildly dilated. The ascending aorta is mildly enlarged. The aortic arch is mildly enlarged. Plan Impression 1. GILMAR on CKD due to ATN/UTI. h/o urinary retention. 2. Enterocutaneous fistula. 3. UTI. 4. Health-assoc PNA. 5. COPD excerbation. 6. Afib with RVR. 7. PTSD. 8. Hypertension with hypertensive nephrosclerosis. 9. Iron def anemia. Plan: start IV ferrlecit 125 mg given controlled infection and being NPO. Add more sodium acetate in TPN. Low K/PO4 concentration. Double concentrate IV meds and TPN to minimize fluid intake. Jose Valles MD June 24, 2016 12:20
--- NOTE | 2016-06-24 12:43 | PCM.DIMED ---
Cammie Franz DO 06/24/16 1229: Discharge Instructions Date of Service June 24, 2016 Dates of Hospitalization June 18, 2016 at 06:01 Discharge Diagnosis Discharge Diagnosis Acute on chronic hypoxic respiratory failure. Present on admission. Healthcare associated pneumonia. Presumed acute. Present on admission. Enterocutaneous fistula, unknown chronicity. Present on admission. Abdominal wall cellulitis, presumed acute. Present on admission PTSD with anxiety and depression, chronic Chronic pain Acute kidney injury in the setting of chronic kidney disease stage IV. Present on admission, improving. Atrial fibrillation with rapid ventricular response. Acute RVR on chronic disease. Present on admission. Possible acute diastolic congestive heart failure was raised in previous notes. Anion gap metabolic acidosis. Acute, present on admission. Bacteriuria, unclear if represents acute UTI versus colonization. Present on admission. Hyponatremia. Encephalopathy of uncertain etiology. Patient has a pacemaker, chronic. Chest pressure. History of gastric bypass surgery and lost approximately 300 pounds. Hyperglycemia, acute. Present on admission. BPH, chronic Medication Instructions NUTRITION FOLLOW UP: ASSESS: 76 YO male readmitted with sepsis, pneumonia, pyelonephritis, and acute on chronic kidney injury in patient with chronic stage 4 kidney disease. Chest x-ray showing extensive right lung widespread consolidation; RSV positive. Pt now with enterocutaneous fistula associated with previous abdominal surgery involving mesh. There is some suspicion that he require surgical intervention. TPN started 06/20 due to need for bowel rest; surgery following. Nephrology is following for CKD stg 4. Pt awaiting bed at [place]. Pt with some confusion per notes. 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 DIET: NPO. TPN: 275 g Dex, 50 g Lipids, 70 g AA providing 1715kcal and 70g pro (~ 75% kcal and 100% pro needs). LABS: Reviewed. CO2 16, BUn 81, Cr 2.97, Glu 174, Alb 2.7. MEDICATIONS: Reviewed. Solu-medrol decreasing, insulin. GI: No BM noted since admit x 6 D. SKIN: WC following for Enterocutaneous fistula. Fistula appliance noted to be leaking. Excoriated skin treated with stoma powder and skin barrier for crusting. Replaced fistula bag. ANTHROPOMETRICS: Current Wt: 90.2 kg, BMI: 28.0 kg/m2. IBW: 75.45 kg, Admit wt: 84.3 kg. ESTIMATED NEEDS (CKD/FISTULA): Calories: 5295-4750 kcal/day (25-35 kcal/kg admit BW) Protein: 65-85 g/day (0.8-1.0 g/kg BW) Fluids: 1850-2100ml/day (22-25ml/kg) or per nephrology NUTRITION DIAGNOSIS: 1) Inadequate oral intake related to inability to consume sufficient energy, as evidenced by NPO status - PERSISTS. 2) Increased nutrient needs related to wound, acute on chronic stage 4 renal disease, as evidenced by multiple electrolyte abnormalities, nephrology and surgery consults - PERSISTS. INTERVENTION: 1) Now that refeeding risk resolved, recommend advance TPN to goal: 375 g Dex, 80g AA and 60g lipids providing 2110 kcal, 80 g protein; meeting 100% calorie/protein needs. 2) Adjust TPN macronutrients based on labs/POC. MONITOR/EVALUATE: NPO status, labs, TPN tolerance/advance, GI/nutrition status. Follow per high nutrition risk guidelines. 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 Fluids/VS VSS, >8 Liters fluid overload, continues upward trend p/ TPN maximally concentrated at 1250mL ~ 1/3 NS equivalent solution II. Chem Anion gap metabolic acidosis - nephrology managing p/ Increase acetate salts to 80mEq/d Hyperphosphatemia a/normalized, will add SMALL place-holding dose in TPN SCr ~ 3.0 and relatively stable III. Glycemic control BG >150 today p/ Add 10 units insulin to TPN and start SQ insulin Regular, low intensity 5 - Standard Hang Time: 2100 Substrates Total kcal: 1715 AMINO ACIDS 70 g DEXTROSE 275 g Total Volume (mL): 1250 LIPIDS 50 g Sterile Water for Injection QS mL To Infuse Over (hrs): 24 Total Volume 1250 mL At at a rate of (mL/hr): 52 Additives Sodium Chloride 10 mEq "typical" daily requirements Sodium Acetate 80 mEq Sodium 50-120mEq Potassium Chloride 20 mEq Potassium 60-120mEq Potassium Phosphate 2 mEq Phosphate 20-40mEq Calcium Gluconate 12 mEq Magnesium 8-32mEq Magnesium Sulfate 8 mEq Calcium 9-22mEq Acetate* 80-120mEq Chloride* 80-120mEq Regular Insulin 10 units *Depending on acid-base status Famotidine mg Multivitamins 1 std dose Insulin Regimen Trace Elements 1 std dose none Thiamine mg Regular Low Intensity Subcut x Folic Acid mg Regular Medium Intensity Subcut Ascorbic Acid mg Regular High Intensity Subcut Regular Insulin Infusion Other: Dick Ramirez Pharm D June 24, 2016 12:45 <Electronically signed by Dick Ramirez Pharm D> 06/24/16 1245 Report status: Signed Transcribed by: ROCÍO 06/24/16 1245 REPORT#: [id number] cc: Dick Ramirez Pharm D; STEVAN CUETO [facility] Diet Other (TPN see above) Activity Other (physical therapy at [facility]) Call your provider Fever or Chills, Shortness of breath, Bleeding, Chest pain, Vomitting, Excessive diarrhea, Weakness (unilateral), Other Patient Instructions See above for TPN order and ertapenem. Continue ertapenem IV 500 mg every 24 hours until 06/29/2016. The [place] surgical office will contact the [facility] with instructions about managing TPN. Nephrology recommends starting an iron supplement. Start taking iron once daily with vitamin C. The [place] surgical office will need to be contacted by the [facility] about setting up an appointment for the patient with the surgeon. The patient will need to follow up with his primary care provider in 7-10 days. Please discuss his left shoulder pain as well. Physical therapy [facility] and progression of safe functional independence with mobility. Please finish the prednisone taper as deemed appropriate by your primary care provider. Please help the patient find his two dogs. Also, please help the patient obtain a pocket communication device as requested by the patient. Continue to follow patient's renal function, phosphorus, magnesium, hemoglobin, and hematocrit. Please do a daily basic metabolic panel with phosphorus and magnesium level. Also check a hemoglobin and hematocrit every other day. [facility] Follow-up with PCP in: 1 week Sanjay Stout MD 06/25/16 1436: Discharge Instructions Attending's Statement The patient was seen and examined together with Dr. Franz on 06/24/2016 and I agree with the history, exam and plan as outlined in the note above. . Cmamie Franz DO June 24, 2016 12:29 Sanjay Stout MD June 25, 2016 14:36
[2016-06-24] MEDS ORDERED: ASCO-294 PO (12:47)
[2016-06-24] MEDS ORDERED: FERR324T5 PO (12:47)
[2016-06-24] MEDS: Ertapenem Inj 500 MG in 0.9% Sodium Chloride 50 ML IV SCH (13:39)
--- NOTE | 2016-06-24 13:48 | NUR ---
Called and spoke with Colleen at [facility] in admission and she is arranging transport for 1500. Updated EQUINE VET
--- NOTE | 2016-06-24 14:40 | PROG NOTE ---
[address] [address] PROGRESS NOTE PATIENT: JAYLEN LOPEZ : 1940 MR#: [id number] ADMIT: 06/18/2016 JOB ID: [id number] DATE: 10/11/1914 The patient is seen in followup. He is still awaiting transportation to the [facility] pending availability of a bed, but by Dr. Desir's report, they have otherwise accepted him.
--- NOTE | 2016-06-24 14:41 | PROG NOTE ---
[address] [address] PROGRESS NOTE PATIENT: JAYLEN LOPEZ : 1940 MR#: [id number] ADMIT: 06/18/2016 JOB ID: [id number] DATE: 06/24/2016 REASON FOR FOLLOWUP: ESBL Proteus urinary tract infection with enterocutaneous fistula and respiratory RSV infection. INTERVAL HISTORY: Overnight, the patient has been relatively stable. He complains of chills this morning but has not had any measured fevers. He has an occasional cough but is not short of breath. He reports diffuse abdominal pain unchanged from baseline. No skin rash. PHYSICAL EXAMINATION: Reveals an afebrile gentleman, temperature 36.5, pulse 117, respiratory rate 18, blood pressure 109/72, saturating reasonably well on 3 L. The patient is awake and alert. His oral exam unchanged. He remains edentulous, of course. His lungs relatively clear anteriorly. Cardiac tones without new murmur but remains irregular, as he is in atrial fibrillation. His abdomen is diffusely rather tender. There is an enterocutaneous fistula just left of the midline without significant surrounding erythema or tenderness beyond that which he has elsewhere in his abdomen. No skin rashes noted. LABORATORIES: Include a white count yesterday at 7000. Today, a crit is 23. Creatinine today 2.97. That creatinine is only slightly better than baseline. His liver function tests are normal. Procalcitonin 0.19. Serologic studies include negative urine Legionella and pneumococcal antigen. RSV PCR respiratory secretions positive. Urine grew the ESBL Proteus. Blood cultures have been negative. IMAGING: Includes a chest x-ray done yesterday that shows right upper lobe opacity. IMPRESSION: This is an extremely complicated case of a 76-year-old [place] with underlying chronic obstructive pulmonary disease made worse by respiratory syncytial virus, as well as an extended-spectrum beta-lactamase Proteus urinary tract infection and an enterocutaneous fistula related to mesh placement from prior gastric bypass for morbid obesity. This extraordinary range of intertwined problems makes his management extremely challenging. At this point, I think he is improving with respect to infectious parameters, and especially with respect to his extended-spectrum beta-lactamase Proteus urinary tract infection, as well as his respiratory syncytial virus. RECOMMENDATIONS: 1. I would continue the IV ertapenem to complete a 10-day course which will take us through June 29, which is five days from now. 2. The patient remains at extremely high risk for fungemia, as he is now receiving TPN for his enterocutaneous fistula even as he receives prednisone for COPD exacerbation and broad-spectrum antibiotics with the ertapenem. Should he have any fevers, fungal blood culture should be drawn through the PICC line, as well as through the skin, and a Fungitell should be done. 3. ID will go ahead and sign off at this time, as there are no active ID issues. 4. I continue to believe this patient's interest would be best served at the [facility] where they can surgically addressed the issues with his enterocutaneous fistula and overlying multiple medical problems.
--- NOTE | 2016-06-24 15:47 | NUR ---
Discharge Pt discharged at approximately [address] [facility] via cabulance. Pt refused catheter removal by RN per . Pt left with double lumen PICC intact for antibiotic regimen, pt left with schaffer intact bag emptied. Pt able to transfer to wheelchair for transport. Report given to Aleah HALL by .
--- NOTE | 2016-06-24 20:54 | PCM.DC.MED ---
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 06/24/16 1245 Report status: Signed Transcribed by: ROCÍO 06/24/16 1245 REPORT#: [id number] cc: Dick Ramirez Pharm D; [facility] Followup Plan Discharge Diet: Other (TPN see above) Discharge Activity: Other (physical therapy at [facility]) Patient Instructions See above for TPN order and ertapenem. Continue ertapenem IV 500 mg every 24 hours until 06/29/2016. The OR surgical office will contact the [facility] with instructions about managing TPN. Nephrology recommends starting an iron supplement. Start taking iron once daily with vitamin C. The OR surgical office will need to be contacted by the Assisted Facility about setting up an appointment for the patient with the surgeon. The patient will need to follow up with his primary care provider in 7-10 days. Please discuss his left shoulder pain as well. Physical therapy recommends Assisted Facility via [facility] for daily PT and progression of safe functional independence with mobility. Please finish the prednisone taper as deemed appropriate by your primary care provider. Please help the patient find his two dogs. Also, please help the patient obtain a pocket communication device as requested by the patient. Continue to follow patient's renal function, phosphorus, magnesium, hemoglobin, and hematocrit. Please do a daily basic metabolic panel with phosphorus and magnesium level. Also check a hemoglobin and hematocrit every other day. Follow-up Provider: [facility] Follow-up with PCP in: 1 week Time spent Greater than 30 minutes was spent in preparation of discharge with greater than 50% of that time dedicated to patient counseling and coordination of care. . Attending Statement The patient was seen and examined together with Dr. Franz on 06/24/2016 and I agree with the history, exam and plan as outlined in the note above. . copies to: [facility]; Eduar Webb MD, Marissa L DO June 24, 2016 20:54 Sanjay Stout MD June 25, 2016 14:42
== END 2016-06-24 15:30 | DRG 208 ==
LOC: SED 04:13 → CCU 06:01 → PCC 22:44
PROVIDERS: ADMIT Internal Medicine; ATTEND Internal Medicine
PROC: 5A1935Z Respiratory Ventilation, Less than 24 Consecutive Hours (ICD-10-PCS; principal; 2016-06-18)
PROC: 02HV33Z Insertion of Infusion Device into Superior Vena Cava, Percutaneous Approach (ICD-10-PCS; 2016-06-18)
PROC: 0BH17EZ Insertion of Endotracheal Airway into Trachea, Via Natural or Artificial Opening (ICD-10-PCS; 2016-06-18)
PROC: 0D9670Z Drainage of Stomach with Drainage Device, Via Natural or Artificial Opening (ICD-10-PCS; 2016-06-18)
PROC: 4A033R1 Measurement of Arterial Saturation, Peripheral, Percutaneous Approach (ICD-10-PCS; 2016-06-18)
PROC: 3E0436Z Introduction of Nutritional Substance into Central Vein, Percutaneous Approach (ICD-10-PCS; 2016-06-20)
DX: J96.21 Acute and chronic respiratory failure with hypoxia (principal); I50.31 Acute diastolic (congestive) heart failure; G93.40 Encephalopathy, unspecified; N17.0 Acute kidney failure with tubular necrosis; J12.1 Respiratory syncytial virus pneumonia; J69.0 Pneumonitis due to inhalation of food and vomit; E87.1 Hypo-osmolality and hyponatremia; J44.0 Chronic obstructive pulmonary disease with (acute) lower respiratory infection; K63.2 Fistula of intestine; N10 Acute pyelonephritis; N18.4 Chronic kidney disease, stage 4 (severe); L03.311 Cellulitis of abdominal wall; T83.718A Erosion of other implanted mesh to organ or tissue, initial encounter; Y95 Nosocomial condition; Z79.52 Long term (current) use of systemic steroids; I48.2 Chronic atrial fibrillation; F43.10 Post-traumatic stress disorder, unspecified; I12.9 Hypertensive chronic kidney disease with stage 1 through stage 4 chronic kidney disease, or unspecified chronic kidney disease; Z87.891 Personal history of nicotine dependence; Z79.82 Long term (current) use of aspirin; Z98.84 Bariatric surgery status; Z96.653 Presence of artificial knee joint, bilateral; R73.9 Hyperglycemia, unspecified; N40.0 Benign prostatic hyperplasia without lower urinary tract symptoms; B96.4 Proteus (mirabilis) (morganii) as the cause of diseases classified elsewhere; Y83.2 Surgical operation with anastomosis, bypass or graft as the cause of abnormal reaction of the patient, or of later complication, without mention of misadventure at the time of the procedure

== ENCOUNTER 2016-08-31 15:31 | Inpatient (IN) | payer OTHER ==
[~2016-08-31] VITALS: Ht 152.4 cm; Wt 87.7 kg
[2016-08-31] VITALS (8 sets, daily range): BP systolic 103–152; BP diastolic 76–106; PULSE 63–162; RESP 13–25; O2SAT 92–99
[~2016-08-31 15:31] MED LIST changes: +ACET325T51 PO; +ADV250INH INHALATION; +ALBU0.63 INHALATION; -AMLO10TA3 PO; +ASCO-294 PO; -ASPI81TA3 PO; +BISA10SU61 RC; -CALC-235 PO; +FERR324T5 PO; -HALO5AMP3 PO; +LORA0.5T PO; +MAGN400O4 PO; +MELA1TAB9 PO; -MELA5TAB14 PO; +ONDA-54 PO; +OXYC1TAB24 PO; -OXYC5TAB72 PO; -SODI650T PO; -TAMS0.4C98 PO
--- NOTE | 2016-08-31 15:42 | ED.REPORT ---
HPI-Dyspnea / Wheezing Date of Service Aug 31, 2016 ED Provider: Sonny Lantigua MD History of Present Illness: OCC Patient is a 76 year old male with a history of COPD, CHF, pacemaker, chronic atrial fibrillation and was recently hospitalized for a PE who presents to the ED via EMS complaining of shortness of breath onset 4 days ago. Associated symptoms include dyspnea with exertion, chest pain, palpitations, chills, subjective fever today, lightheadedness and swelling in his legs that began about 1.5 weeks ago. The patient describes the chest pain as a sharp, 10/10 pain. Upon medics arrival, the patient was found to be in atrial fibrillation with RVR. He denies cough. The patient reports that his dyspnea is worse than when he was in the hospital a week ago. During his stay at the [facility] the patient was put on Warfarin for his PE and he also had a blood transfusion. Nursing Notes Stated Complaint: RESPIRATORY DISTRESS Chief Complaint: Respiratory Distress Nursing Notes Reviewed: Yes ([employer], blank) Allergies: Coded Allergies: meperidine (Verified Allergy, Severe, HIVES, 12/02/15) HAS TOLERATED OXYCODONE X MANY morphine (Verified Allergy, Severe, HIVES, 12/02/15) HAS TOLERATED OXYCODONE X MANY hydroxyzine (Verified Allergy, Intermediate, Hives, 12/02/15) codeine (Verified Allergy, Unknown, 12/02/15) HAS TOLERATED OXYCODONE X MANY Scheduled Cholecalciferol (Vitamin D3) (Vitamin D3) 2,000 Unit Capsule 2,000 UNIT PO DAILY Docusate Sodium (Docusate Sodium) 250 Mg Capsule 250 MG PO QAM Gabapentin (Gabapentin) 300 Mg Capsule 300 MG PO TID Metoprolol Tartrate (Metoprolol Tartrate) 25 Mg Tablet 25 MG PO BID Omeprazole (Omeprazole) 20 Mg Capsule.dr 20 MG PO DAILY Prazosin (Prazosin) 1 Mg Capsule 3 MG PO HS Tamsulosin (Flomax) 0.4 Mg Capsule 0.4 MG PO DAILY Venlafaxine (Venlafaxine) 75 Mg Tablet 75 MG PO TID Warfarin Sodium (Warfarin Sodium) 5 Mg Tablet 5 MG PO DAILY Scheduled PRN Acetaminophen (Acetaminophen) 500 Mg Tablet 500 MG PO BID PRN PRN For Pain Melatonin/Pyridoxine HCl (B6) (Melatonin 3 mg Tablet) 1 Each Tablet 1 EACH PO HS PRN PRN Insomnia Oxycodone (Roxicodone) 5 Mg Tablet 5 MG PO Q4H PRN PRN For Pain General Time Seen by MD: 15:37 Chief Complaint Shortness of breath Hx Obtained From: Patient, EMS Arrived By: Ambulance Sudden in Onset?: Yes Onset Occurred: 4 days ago Symptom Duration: Since onset Location: : Substernal Quality: Painful, Sharp Radiation: : Does not radiate Severity: Current: Moderate Severity: Maximum: Pain level 10 out of 10 Associated with: Reports: Chest pain, Leg swelling, Nausea, Denies: Cough Recent Healthcare: Recent doctor visit, Recent hospitalization Similar Sx Previous: Yes Past Medical History Past Medical History Notes: Multiple admissions for pneumonia (June 2016) Recent admission with acute on chronic renal failure Chronic atrial fibrillation History of ESBL Proteus UTI History of enterocutaneous fistula Past Medical History depression PTSD from [place] Reports: COPD, Congestive heart failure, GERD, Hypertension Reports: Atrial fibrillation, Depression, Renal failure Past Surgical History Pacemaker History of gastric bypass Reports: Knee replacement, Pacemaker insertion Family History Noncontributory Smoking History Former Smoker Social History Alcohol Use: In recovery Drug Use: Denies drug use Other Social History: Local resident Occupation [employer] [place] Ambulatory Status Independent Review of Systems Constitutional: Reports: Chills, Fever Respiratory: Reports: Dyspnea on exertion, Shortness of breath, Denies: Non-productive cough Cardiovascular: Reports: Chest pain, Palpitations Skin: Denies Diaphoresis, Denies Itching, Denies Rash Complete sys rev & neg: except as marked. GI: Reports: Nausea, Denies: Vomiting Neurologic: Reports: Lightheaded Physical Exam Initial Vital Signs Vital Signs (First) Date Time Temp Pulse Resp B/P Pulse Ox O2 Delivery O2 Flow Rate FiO2 08/31/16 15:43 36.1 162 25 142/104 96 Room Air 08/31/16 17:08 2 Initial VS: Reviewed, Vital signs abnormal General/Constitutional: Awake, Alert Neck: Atraumatic, Supple Respiratory / Chest: Atraumatic, Breath sounds NL, Breath sounds = bilat, No respiratory distress, No wheezing Cardiovascular: Regular rhythm, No murmurs Heart Rate / Rhythm: Positive: Tachycardia Abdomen: Atraumatic, Soft enterocutaneous fistula on the right side of the abdomen LOWER EXTREMITIES: 2-3+ pitting edema bilateral extremities Skin: Atraumatic, Color NL, No rash, Warm, Dry Neurologic: Oriented X3, Speech NL, No motor deficits, No sensory deficits Head / Eyes: Atraumatic, Normocephalic, PERRL, EOMI Psychiatric: Affect NL, Mood NL Interpretation & Diagnostics Lab Results Interpretation Result Diagram: 08/31/16 1629 08/31/16 1629 Test 08/31/16 16:29 08/31/16 16:35 08/31/16 16:47 08/31/16 19:10 White Blood Count 6.7th/mm3 (3.8-10.1) Red Blood Count 3.78mil/mm3 (4.40-5.80) Hemoglobin 11.4g/dL (13.8-17.2) Hematocrit 36.6% (41.0-50.0) Mean Corpuscular Volume 96.8fL (81-100) Mean Corpuscular Hemoglobin 30.2pg (27.0-35.0) Mean Corpuscular Hemoglobin Concent 31.1% (32.0-37.0) Red Cell Distribution Width 15.2% (12.3-15.4) Platelet Count 426bil/L (150-400) Neutrophils (%) (Auto) 76.2% (40-74) Lymphocytes (%) (Auto) 15.3% (14-46) Monocytes (%) (Auto) 7.5% (4-12) Eosinophils (%) (Auto) 0.3% (0-5) Basophils (%) (Auto) 0.2% (0-3) Prothrombin Time 19.3sec (8.1-12.5) Prothromb Time International Ratio 1.78ratio Sodium Level 136mEq/L (134-144) Potassium Level 4.9mEq/L (3.5-5.2) Chloride Level 100mEq/L (97-108) Carbon Dioxide Level 21mmol/L (18-29) Blood Urea Nitrogen 26mg/dL (8-27) Creatinine 1.77mg/dL (0.76-1.27) Estimat Glomerular Filtration Rate 40mL/min (>59) Glucose Level 103mg/dL (60-99) Calcium Level 8.5mg/dL (8.5-10.1) Magnesium Level 1.9mg/dL (1.6-2.6) Total Bilirubin 0.6mg/dL (0.0-1.2) Aspartate Amino Transf (AST/SGOT) 41U/L (0-50) Alanine Aminotransferase (ALT/SGPT) 27U/L (0-44) Alkaline Phosphatase 70U/L (25-160) Troponin T 0.056ug/L (0.0-0.011) Pro-B-Type Natriuretic Peptide 37552ix/mL (0-486) Total Protein 6.6g/dL (6.4-8.4) Albumin 3.2g/dL (3.4-5.0) Procalcitonin 0.06ng/mL (0.00-0.08) D-Dimer 0.78mg/L FEU (<0.50) Lactic Acid Level 1.2mmol/L (0.4-2.0) Urine Color Yellow (YELLOW) Urine Appearance Hazy (CLEAR,HAZY) Urine pH 6.5 (5.0-8.0) Urine Specific [place] 1.020 (1.003-1.035) Urine Protein 30mg/dL (NEG,TRACE) Urine Glucose (UA) Negativemg/dL (NEGATIVE) Urine Ketones Negativemg/dL (NEGATIVE) Urine Occult Blood Trace (NEGATIVE) Urine Nitrite Positive (NEGATIVE) Urine Bilirubin Negative (NEGATIVE) Urine Urobilinogen Normalmg/dL (NORMAL) Urine Leukocyte Esterase Small (NEGATIVE) Urine RBC 0-2/hpf (0-2) Urine WBC Packed/hpf (0-5) Urine Epithelial Cells Few/hpf (NONE-MOD) Urine Crystals None seen (NONE SEEN) Urine Bacteria Many/hpf (NONE-FEW) Urine Hyaline Casts None/lpf (NONE) Urine Granular Casts None seen (NONE SEEN) Urine Waxy Casts None seen (NONE SEEN) Urine Red Blood Cell Casts None seen (NONE SEEN) Urine White Blood Cell Casts None seen (NONE SEEN) Urine Mucus None seen (None Seen) Urine Trichomonas None seen (NONE SEEN) Urine Yeast None (NONE SEEN) Urinalysis Comment None Urine Culture Reflexed Indicated Lab Results Interpretation: CBC normal CMP moderate renal insufficiency D-dimer marginally elevated, borderline for age adjustment INR subtherapeutic Troponin elevated, difficult since interpret in setting of atrial fibrillation, renal insufficiency Lactic acid normal ProBNP severely elevated ECG Interpretation ECG Interpretation: atrial fibrillation, rate 162 Q waves anteriorly left ventricular hypertrophy intraventricular conduction block Time: 15:38 Interpreted by: ED physician ECG Interpretation: still in atrial fibrillation, rate control achieved (92bpm) no acute ischemic changes, overall improved Time: 16:24 Interpreted by: ED physician X-Ray Chest Interpretation Chest Xray Interpretation: IMPRESSION: The bibasilar pneumonia, left greater than right, possible mild or early pneumonia right upper lobe. Asymmetric left greater than right shoulder joint osteoarthritis, with intra-articular 1.2 cm loose body inferior margin of the right glenohumeral joint. Dictated by: William Baker M.D. on 08/31/2016 at 16:23 Approved by: William Baker M.D. on 08/31/2016 at 16:24 View: Portable, 1 view Interpretation / Wet Read by: Interpret - Radiologist CT Chest Interpretation IMPRESSION: Small to moderate bilateral pleural effusions with adjacent atelectasis. Additional patchy consolidation in the left lung base possibly pneumonia or aspiration. Please correlate clinically. Mild cardiomegaly. Circumferential lower chest wall edema, possibly third spacing/anasarca. Please correlate clinically. Dictated by: Rizwan Orta M.D. on 08/31/2016 at 18:13 Approved by: Rizwan Orta M.D. on 08/31/2016 at 18:19 Interpretation / Wet Read by: Interpret - Radiologist Re-Eval/Medical Decision Med Decision/Clinical Course This is a very complex 76-year-old male presents with worsening shortness of breath for the past several days. Patient reports this is worse than, and he reports he just recently got out of the hospital the [facility]. He has a history of recurrent pneumonias, history of COPD and chronic low-dose steroids, and was recently diagnosed with a pulmonary embolus and is now on warfarin. He denies chest pain, but reports increasing shortness breath, thinks he may benefit fever , no chills, and nausea that has been progressively the past few days. He denies new leg swelling. He reports she has been compliant with his medications. On arrival is dyspneic with a respiratory rate of 25, but still oxygenating adequately, he appears moderately ill, and he is very tachycardic with atrial fibrillation with rapid ventricular response. I do not appreciate any audible bronchospasm and he seems to have reasonable air movement. There is significant edema of the legs, which the patient states is relatively new. EKG demonstrated atrial fibrillation rapid ventricular response, the patient had an IV placed with significant difficulty-was able received diltiazem with subsequent rate control. Repeat EKG is improved, I do not appreciate overt signs of ischemia. History as to x-rays directly abnormal and the radiologist reads as pneumonia. To my eyes differential also includes congestive heart failure that could be tachydysrhythmia related, but the patient does have a history of complex pneumonias. He is not currently febrile. He does not have a leukocytosis. However his proBNP, and his troponin are marginally elevated however these are both made difficult to interpret in the setting of his atrial fibrillation, and his renal insufficiency. Additionally he is marginally subtherapeutic on his INR, and I attempted to obtain records from the [facility] but been unsuccessful, but the patient clearly tells me he is diagnosed with a pulmonary embolus. He was then placed on heparin per pharmacy dosing recommendations. Given the radiologist is reading this as pneumonia, healthcare associated pneumonia antibiotics are being initiated. Again I suspect a component of CHF-the patient seems clinically improved and in no longer in distress following rate control. Given he has marked edema, and what may be CHF and again may be rate controlled rather than volume related. However with his complex presentation, admission and careful monitoring are warranted. I discussed this issue the [facility] and was content to return to the [facility] for bed available. Source of Hx: Old records Re-Evaluation/Progress #1: Time of Eval: 15:55 Re-Evaluation/Progress Note: More than 10 calls have been put out to the [facility] in attempt to get records for the patient, without success. Re-Evaluation/Progress #2: Time of Eval: 16:11 Patient Status: Condition improved Re-Evaluation/Progress Note: Patient reports that his breathing has improved as well as his other symptoms. Heart rate is down to 89 Re-Evaluation/Progress #3: Time of Eval: 17:52 Re-Evaluation/Progress Note: Patient would like to wait to see if he can be admitted at the [facility] Re-Evaluation/Progress #4: Time of Eval: 19:04 Re-Evaluation/Progress Note: Discussed plan to admit here. Patient understands and agrees to plan. All questions were addressed. Consultation #1: Call Returned at: 18:46 Note: Spoke with SHAWN Dexter at the [facility] who indicates they cannot accept the patient transfers there are no beds available. Consultation #2: Referral / Consult Name: Damien Vila MD Consulted With: Hospitalist Call Returned at: 19:58 Cash Applications Analyst: Agrees with eval, Agrees with plan, Accepts admit Counseled Regarding: Diagnosis, Lab results, Need for admission Discharge & Departure Impression: Primary Impression: Dyspnea Dyspnea type: unspecified Qualified Code: R06.00 - Dyspnea, unspecified Additional Impressions: Healthcare associated bacterial pneumonia CHF (congestive heart failure) Congestive heart failure type: unspecified congestive heart failure type Congestive heart failure chronicity: unspecified congestive heart failure chronicity Qualified Code: I50.9 - Heart failure, unspecified Atrial fibrillation with RVR Subtherapeutic international normalized ratio (INR) History of pulmonary embolism Disposition: ADMITTED TO HOSPITAL Discharge Condition All VS Reviewed: Yes Condition: Stable Referrals: [facility] (PCP) Crit Care Except Billable Proc Time Spent: 30-74 minutes Services Performed: Patient management by me, Time spent at bedside, Reviewing test results, Reviewing imaging, Discussing patient care, Documentation in record Critical Care Notes: Management of Afib w/RVR in complex patient with extensive differential Scribe Attestation Portions of this note were transcribed by vIory Johnson. I, Dr. Lantigua personally performed the history, physical exam and medical decision-making; I reviewed and confirmed the accuracy of the information in the transcribed note. Signed by: Ivory Giang, 08/31/16 copies to: [facility] Sonny Lantigua MD Aug 31, 2016 15:42 Lisa Johnson Aug 31, 2016 15:59
[2016-08-31] MEDS ORDERED: Diltiazem 5 mg/mL 5 mL Inj IVPUSH ONE (15:45)
[2016-08-31] MEDS ORDERED: Ondansetron 2 mg/mL 2 mL Inj IVPUSH ONE (16:25)
--- NOTE | 2016-08-31 16:26 | DRSVH ---
PROCEDURE: X-RAY CHEST ONE VIEW, PORTABLE ([id number]) INDICATIONS: sob TECHNIQUE: One view of the chest was acquired. COMPARISON: [facility], CR, XR CHEST 1VW (PORTABLE), 06/23/2016, 8:37. [facility], CR, XR CHEST 1VW (PORTABLE), 06/21/2016, 5:00. FINDINGS: Surgical changes and devices: None. Lungs and pleura: No pleural effusions or pneumothorax. Lungs are abnormal with left lower lobe pne umonia, and probable medial right lower lung pneumonia and possibly a slight degree of pneumonia the right upper lobe. Mediastinum: Mediastinal contours appear normal. Heart size is normal. Bones and chest wall: No suspicious bony lesions. Note is made of an intra-articular loose body at the inferior margin of the glenohumeral joint on the right, and moderate osteoarthritis in that area. Severe left osteoarthritis at the shoulder joint is noted at the glenohumeral articulation. [place] ing soft tissues appear unremarkable. IMPRESSION: The bibasilar pneumonia, left greater than right, possible mild or early pneumonia right upper lobe. Asymmetric left greater than right shoulder joint osteoarthritis, with intra-articular 1.2 cm loose b reji inferior margin of the right glenohumeral joint. Dictated by: William Baker M.D. on 08/31/2016 at 16:23 Approved by: William Baker M.D. on 08/31/2016 at 16:24
[2016-08-31 16:32] LABS: BASOPHILS % (AUTO) 0.2 % (0-3); EOSINOPHILS % (AUTO) 0.3 % (0-5); MONOCYTES % (AUTO) 7.5 % (4-12); Mean Corpuscular Hemoglobin 30.2 pg (27.0-35.0); Mean Corpuscular Volume 96.8 fL (81-100); NEUTROPHILS % (AUTO) 76.2 % (40-74); Platelet Count 426 bil/L (150-400)
[2016-08-31] MEDS ORDERED: levoFLOXacin Inj 750 MG in IV Premix 1 EACH IV ONE (16:35)
[2016-08-31] MEDS ORDERED: Piperacillin-Tazo 3.375 Gm Inj 3.375 GM in Dextrose 5% Minibag Plus 50 ML IV ONE (16:35)
[2016-08-31] MEDS ORDERED: Vancomycin Dose per Pharmacist XX ONE (16:35)
[2016-08-31] MEDS ORDERED: MethylprednisoLONE Sodium Succinate 62.5 mg/mL 2 mL Inj IVPUSH ONE (16:40)
[2016-08-31 17:09] LABS: Magnesium 1.9 mg/dL (1.6-2.6)
[2016-08-31 17:12] LABS: INR 1.78 ratio
[2016-08-31 17:16] LABS: TROPONIN T 0.056 ug/L (0.0-0.011)
[2016-08-31] MEDS ORDERED: Heparin 25K Unit/500mL 0.45 NS 25,000 UNIT in IV Premix 1 EACH IV ONE (17:25)
--- NOTE | 2016-08-31 18:22 | DRSVH ---
PROCEDURE: CT CHEST WITHOUT CONTRAST ([id number]) INDICATIONS: SOB TECHNIQUE: Noncontrast 5 mm thick sections acquired from the pulmonary apices to the posterior costophrenic angl es. 7 mm thick coronal and sagittal MIP reformats were then acquired. For radiation dose reduction, the following was used: automated exposure control, adjustment of mA and/or kV according to patient size. COMPARISON: None. FINDINGS: Image quality: Excellent. Lungs and pleura: Small-moderate bilateral pleural effusions with adjacent atelectasis. There is supe rimposed bilateral lower lobe scarring, and left basilar consolidation. Mediastinum: Heart size is mildly enlarged. Trace pericardial effusion. No mediastinal adenopathy b y size criteria. Thoracic aorta and central pulmonary arteries are normal in size. Esophagus is nor mal in caliber. Bones and chest wall: No suspicious bony lesions. No vertebral body compression fractures. No axil rosa maria or supraclavicular adenopathy by size criteria. Thyroid gland negative. Abdomen: There is diffuse circumferential chest wall edema. Possible small hiatal hernia and postsurg ical changes in the region of the stomach IMPRESSION: Small to moderate bilateral pleural effusions with adjacent atelectasis. Additional patchy consolidat ion in the left lung base possibly pneumonia or aspiration. Please correlate clinically. Mild cardiomegaly. Circumferential lower chest wall edema, possibly third spacing/anasarca. Please correlate clinically. Dictated by: Rizwan Orta M.D. on 08/31/2016 at 18:13 Approved by: Rizwan Orta M.D. on 08/31/2016 at 18:19
[2016-08-31] MEDS ORDERED: Insulin Human REGular-Omnicell 100 Unit/mL SUBQ ONE (18:40)
[2016-08-31] MEDS ORDERED: PRAZ1CAP2 PO (19:32)
[2016-08-31] MEDS ORDERED: WARF5TAB7 PO (19:32)
[2016-08-31] MEDS ORDERED: ACET-171 PO (19:32)
[2016-08-31] MEDS ORDERED: CHOL200047 PO (19:32)
[2016-08-31] MEDS ORDERED: VENL75TA3 PO (19:32)
[2016-08-31] MEDS ORDERED: OMEP20CA11 PO (19:32)
[2016-08-31] MEDS ORDERED: MELA1TAB28 PO (19:32)
[2016-08-31] MEDS ORDERED: DOCU250C2 PO (19:32)
[2016-08-31] MEDS ORDERED: GABA-502 PO (19:32)
[2016-08-31] MEDS ORDERED: METO25TA6 PO (19:32)
[2016-08-31] MEDS ORDERED: TAMS0.4C98 PO (19:32)
[2016-08-31] MEDS ORDERED: OXYC-474 PO (19:32)
[2016-08-31 19:45] LABS: APPEARANCE,URINE HAZY (CLEAR,HAZY); COLOR,URINE YELLOW (YELLOW); PH,URINE 6.5 (5.0-8.0)
[2016-08-31 19:47] LABS: OCCULT BLOOD,URINE TRACE (NEGATIVE); UROBILINOGEN,URINE NORMAL (NORMAL)
[2016-08-31] MEDS ORDERED: Alum-Mag Hydrox-Simeth 30 mL Suspension PO PRN (20:20)
[2016-08-31] MEDS ORDERED: Senna-Docusate 8.6-50 mg Tablet PO PRN (20:20)
[2016-08-31] MEDS ORDERED: Polyethylene Glycol (PEG) 17 Gm Powder PO PRN (20:20)
--- NOTE | 2016-08-31 21:07 | NUR ---
admit note: pt. admitted for sob, rapid afib, heart rate now 113, sats 93% on room air. pt. on heparin drip.
[2016-08-31] MEDS: Sodium Chloride LOK Flush 10 mL Syringe IVFLUSH SCH (21:40)
[2016-08-31] MEDS ORDERED: Heparin 25K Unit/500mL 0.45 NS 25,000 UNIT in IV Premix 1 EACH IV SCH (21:45)
[2016-08-31] MEDS ORDERED: Heparin 5,000 Unit/mL Inj IVPUSH PRN (21:45)
--- NOTE | 2016-08-31 21:54 | PCM.HPMED ---
Subjective Date of Service Aug 31, 2016 Primary Provider: Admitting Physician: Damien Vila MD [facility] Attending Physician: Damien Vila MD Chief Complaint: Shortness of breath History of Present Illness: Donovan Benítez is a 76 -year-old man with past medical history significant for COPD, diastolic congestive heart failure, pacemaker placement, atrial fibrillation, PTSD requiring admission in a psychiatric facility, with multiple recurrent admissions for pneumonia who was recently admitted to an outside facility for pulmonary embolism now on warfarin who presented to the [facility] emergency department today via EMS due to shortness of breath that started 4 days ago. Patient noted dyspnea on exertion, chest pain, palpitations, chills, subjective fever, lightheadedness and swelling in his legs that has been worsening for about last week and a half. Patient noticed that he became her breath while walking a few steps which is new for him. Patient also noticed orthopnea. Patient notes that his chest pain but states that this chest pain is similar to his anxiety events. Medics noted that the patient was found in fibrillation with rapid ventricular response. Patient denies any nausea or vomiting. He does state that he feels very anxious and claustrophobic. In the emergency department his vital signs were notable for a pulse of 162. Patient was afebrile with a temperature of 36.1. Patient underwent evaluation with chest x-ray which noted some possible pneumonia and then a chest CT which noted likely atelectasis and bilateral pleural effusions more consistent with fluid overload rather than pneumonia. Patient's EKG was notable for atrial fibrillation with left ventricular hypertrophy and intraventricular block. Patient's INR was found to be subtherapeutic in the setting of a elevated d- dimer and a past history of pulmonary and was not patient was initiated on a heparin drip until his warfarin could be therapeutic. Patient was also started on given IV doses of Cardizem with good response. She was also given vancomycin , Levaquin, Zosyn 4 possible healthcare associated pneumonia. Patient was also given 125 mg of Solu-Medrol for possible COPD exacerbation. Review of Systems: A comprehensive review of systems was conducted with the patient and found to be negative except as above in the History of Present Illness. Allergies Coded Allergies: meperidine (Verified Allergy, Severe, HIVES, 12/02/15) HAS TOLERATED OXYCODONE X MANY morphine (Verified Allergy, Severe, HIVES, 12/02/15) HAS TOLERATED OXYCODONE X MANY hydroxyzine (Verified Allergy, Intermediate, Hives, 12/02/15) codeine (Verified Allergy, Unknown, 12/02/15) HAS TOLERATED OXYCODONE X MANY Home Medications Discharge Medications Ascorbate Calcium (Vitamin C) 500 Mg Tablet 500 MG PO DAILY Prescribed by: XENIA CARR DO Citalopram Hydrobromide (Celexa) 20 Mg Tablet 10 MG PO DAILY Prescribed by: BRANDON SANCHEZ DO Diltiazem ER (Cardizem CD) 240 Mg Cap.er.24h 240 MG PO DAILY Prescribed by: BRANDON SANCHEZ DO Ferrous Gluconate (Ferrous Gluconate) 324 Mg Tablet 324 MG PO DAILY Prescribed by: XENIA CARR DO Fluticasone/Salmeterol (Advair 250-50 Diskus) 60 Puff/Inh Disk 1 PUFF INHALATION BID Prescribed by: XENIA CARR DO Gabapentin (Neurontin) 300 Mg Capsule 300 MG PO DAILY Prescribed by: XENIA CARR DO Prazosin (Minipress) 2 Mg Capsule 2 MG PO HS Prescribed by: BRANDON SANCHEZ DO Prednisone (Deltasone) 20 Mg Tablet 40 MG PO DAILY Take 2 tablets (40 mg) by mouth for 3 days, then take 1.5 tablets (30 mg) by mouth for 5 days, then take 1 tablet (20 mg) by mouth for 5 days, then take 0.5 tablet (10 mg) by mouth for 5 days, and then as directed by your PCP. Prescribed by: XENIA CARR DO Trazodone (Trazodone) 50 Mg Tablet 25 MG PO HS (Reported) As needed Acetaminophen (Acetaminophen) 325 Mg Tablet 650 MG PO Q4H PRN PRN For Fever ( Reported) Albuterol Neb Soln (Albuterol Neb Soln) 0.63 Mg/3 Ml Vial.neb 0.63 MG INHALATION Q4H PRN PRN For Wheezing (Reported) Albuterol/Ipratropium (Combivent Respimat Inhal [place]) 120 Spr/4 Gm Inhaler 1 PUFF IH QID PRN PRN For Shortness of Breath (Reported) Bisacodyl (Dulcolax Rectal) 10 Mg Supp.rect 10 MG RC Q3D PRN PRN For Constipation (Reported) Lorazepam (Lorazepam) 0.5 Mg Tablet 0.5-1 TABLET PO Q6H PRN PRN For Anxiety or Agitation Prescribed by: XENIA CARR DO Magnesium Hydroxide (Milk of Magnesia) 400 Mg/5 Ml Oral.susp 30 ML PO Q3D PRN PRN For Constipation (Reported) Melatonin (Melatonin) 1 Mg Tablet 3 MG PO HS PRN PRN Insomnia Prescribed by: XENIA CARR DO Ondansetron (Ondansetron) 8 Mg Tablet 8 MG PO Q6H PRN PRN For Nausea/Vomiting ( Reported) oxyCODONE-Acetaminophen 5-325 mg (oxyCODONE-Acetaminophen 5-325 mg) 1 Each Tablet 1-2 TAB PO Q4H PRN PRN For Pain Prescribed by: XENIA CARR DO PMH PTSD, anxiety and depression after being involved in combat in [place] Bilateral cataracts History of obesity status post gastric bypass surgery patient weighed over 450 pounds BPH Surgical History Gastric bypass surgery in [place] Small bowel obstruction requiring surgery twice Tonsillectomy Appendectomy at the age of 10 ORIF of compound fracture of the right distal upper extremity Patient states he has had 3 right total knee arthroplasties and 2 left total knee arthroplasties. The patient has had all this tooth removed. Family History His father at 59 of a myocardial infarction. He was a heavy smoker and drinker. Patient's mother at 40 after attempting suicide with a 22 caliber gun injuring her right frontal lobe she had to have a plate put over her frontal part of her cranium. She of complications at the age of 40 Patient one sister who is 72 years old and has COPD and is on home oxygen.. Social History Hx Alcohol Use: Yes Hx Substance Use: No Hx Tobacco Use: Yes (quit 24 years ago) Smoking Status: Former Smoker (patient quit 31 years ago) Exam Vital Signs Vital Sign - Last Date Time Temp Pulse Resp B/P Pulse Ox O2 Delivery O2 Flow Rate FiO2 08/31/16 20:04 37.4 113 17 144/104 93 Room Air 08/31/16 17:08 2 Exam General: No acute distress, chronically ill-appearing, appropriately interactive appears anxious HEENT: Normocephalic, atraumatic. External ears without defect. Pupils equal, round, and reactive to light and accommodation. Anicteric sclerae, moist conjunctivae, and no lid lag. Oropharynx free of erythema and cobble stoning with moist mucosa. Neck: Supple with full range of motion. No jugular venous distension. No lymphadenopathy or thyromegaly. Cardiovascular: Regular rate and irregular rhythm with soft systolic murmur. Pulmonary: Clear to auscultation bilaterally with no crackles, wheezes, or rhonchi. Normal respiratory effort with no use of accessory muscles. Reduced breath sounds at bilateral bases. Abdomen: Bowel tones present. Soft, nontender, nondistended. No hepatosplenomegaly or masses appreciated. Extremities: No clubbing, cyanosis. Bilateral pitting lower extremity edema up to the knee. Skin: Normal temperature, turgor, and texture; no rash, ulcers, or subcutaneous nodules appreciated. Neurological: Cranial nerves grossly intact. Normal muscle strength, tone, and bulk. No known gait impairment. Psychiatric: Anxious but pleasant and cooperative.. Alert and oriented to person , place, and time. Lab and Diagnostics Result Diagram: 08/31/16 1629 08/31/16 1629 X-Rays, CTs and MRIs CT CHEST WITHOUT CONTRAST IMPRESSION: Small to moderate bilateral pleural effusions with adjacent atelectasis. Additional patchy consolidation in the left lung base possibly pneumonia or aspiration. Please correlate clinically. Mild cardiomegaly. Circumferential lower chest wall edema, possibly third spacing/anasarca. Please correlate clinically. Dictated by: Rizwan Orta M.D. on 08/31/2016 at 18:13 X-RAY CHEST ONE VIEW, PORTABLE IMPRESSION: The bibasilar pneumonia, left greater than right, possible mild or early pneumonia right upper lobe. 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 Dictated by: William Baker M.D. on 08/31/2016 at 16:23 Cardiac Echo Impressions Interpretation Summary Left ventricular systolic function is normal without focal wall motion abnormalities. The ejection fraction is estimated to be 60-65%. LVEF has not changed since priro study. Left ventricular wall thickness is mild-moderately increased. The right ventricle is at the upper limits of normal in size. The right ventricular systolic function is normal. Right ventricular systolic pressure is estimated to be 20 mmHg plus the clinically estimated CVP which cannot be estimated on this exam. The left atrium is severely dilated. The right atrium is severely dilated. There is mild mitral regurgitation. There is no other significant valvular heart disease. The aortic root is mildly dilated. The ascending aorta is mildly enlarged. The aortic arch is mildly enlarged. E/E' med: 15.1 Assessment & Plan Donovan Benítez is a 76 -year-old man with past medical history significant for COPD, diastolic congestive heart failure, pacemaker placement, atrial fibrillation, PTSD requiring admission in a psychiatric facility, with multiple recurrent admissions for pneumonia who was recently admitted to an outside facility for pulmonary embolism now on warfarin who presented to the [facility] emergency department today via EMS due to shortness of breath that started 4 days ago. Atrial fibrillation with rapid ventricular response, present on admission, active -Unclear if CHF exacerbated the atrial fibrillation or vice versa. -Troponin elevation likely secondary to demand ischemia from rapid rate, will trend. -Patient well rate controlled with IV Cardizem. -We will continue to monitor and give IV Cardizem when necessary. -We will continue with outpatient by mouth medications as well. -Telemetry monitoring. Acute exacerbation of chronic diastolic congestive heart failure, present on admission, active -Patient has noted orthopnea, exertional dyspnea and lower extremity edema over the last week. BNP is also significantly elevated at 25,000. -Patient had an echocardiogram about 3 months ago which did note a significantly elevated E to E' ratio suggestive of diastolic dysfunction. Of note, E to E' can denote diastolic dysfunction even in the setting of atrial fibrillation. -Unclear if atrial fibrillation with RVR has worsened CHF or vice versa -Patient is now rate controlled with IV diltiazem -We will initiate 40 mg of IV Lasix twice a day -Strict I and O's, standing weights, CHF teaching, low-salt diet, 2 L fluid restriction Acute on chronic respiratory failure in the setting of COPD and CHF, present on admission, active - Likely secondary to CHF exacerbation. Do not see evidence of pneumonia or COPD exacerbation at this time. Patient is afebrile, has no white count, has a normal calcitonin, has no cough. - Patient was given 125 mg of SoluMedrol in emergency department. - He was also given vancomycin, Zosyn and Levaquin for presumed HCAP. We will not be continuing this as there is does not appear to be pneumonia. Patient also has a history of ESBL and we would like to prevent further antibiotic resistance in this patient. - respiratory virus PCR panel - Ipratropium every 4 hours while awake, levalbuterol every 2 hours as needed for shortness of breath - Keep O2 saturation between 88 and 92% Recent history of pulmonary embolism, present on admission, active -Patient's INR is subtherapeutic. He was initiated on heparin drip. We will continue. -Warfarin pharmacy. Chronic issues, present on admission, stable: History of PTSD, anxiety and depression - Patient feels significantly claustrophobic. Will leave the door open. - 1 time IV lorazepam 1 mg. Continue patient's outpatient by mouth lorazepam. Chronic kidney disease stage IV -Appears to be patient's baseline. -Continue to monitor CODE STATUS: Full code Patient is admitted under inpatient status with expected length of stay greater than 2 midnights due to severity of presenting symptoms, risk of adverse event, and complexity of treatment plan. VTE Prophylaxis Indicated: Meets Criteria for Anticoag Therapy Resuscitation Status: CPR: Attempt Resuscitation Attending Statement The patient was seen and examined together with Dr. Heredia on 08/31 and I agree with the history, exam and plan as outlined in the note above. Angela Heredia DO Aug 31, 2016 20:25 Damien Vila MD Sep 01, 2016 06:51
[2016-08-31] MEDS: Furosemide 10 mg/mL 4 mL Inj IVPUSH SCH (21:58)
[2016-09-01] VITALS (13 sets, daily range): BP systolic 90–123; BP diastolic 67–92; PULSE 69–126; RESP 8–22; O2SAT 92–96
[2016-09-01 02:35] LABS: BASOPHILS % (AUTO) 0.2 % (0-3); EOSINOPHILS % (AUTO) 0 % (0-5); MONOCYTES % (AUTO) 1.7 % (4-12); Mean Corpuscular Hemoglobin 31.1 pg (27.0-35.0); Mean Corpuscular Volume 97.4 fL (81-100); NEUTROPHILS % (AUTO) 90.7 % (40-74); Platelet Count 338 bil/L (150-400)
--- NOTE | 2016-09-01 04:18 | PCM.CONPHA ---
Subjective Date of Service: Sep 01, 2016 Requesting Provider: Angela Heredia DO Shortness of breath History of Present Illness SOB, ACS, CHF Reason for Pharmacy Consult: Anticoagulation Management Objective Assessment/Plan Assessment/Plan A/ - 76 y/o male patient is on warfarin for atrial fibrillation and recently diagnosed with pulmonary embolism. He has hx of CHF, pacemaker replacement, CKD stage IV, COPD, and PTSD - Home dose: reported 5mg daily (no record of outpt), unknown last dose taken - INR: 1.78; Hct/Plt: 36.6/426, no s/s of bruises or bleed - Patient was first thought to have pneumonia, in ED, he received one dose of Vancomycin, Levaquin, and Zosyn, and no antibiotics at this moment - Heparin drip was initiated until INR is therapeutic P/ - Give Warfarin 5mg tonight (08/31). INR ordered until 09/05 Pharmacy will monitor s/s of bleeding, INR level, and dose warfarin daily Thank you Chani Rodriguez Sep 01, 2016 04:18 Height (Inches): 0.00 Test 08/31/16 16:29 08/31/16 16:35 08/31/16 16:47 08/31/16 19:10 Sodium Level 136mEq/L (134-144) Potassium Level 4.9mEq/L (3.5-5.2) Chloride Level 100mEq/L (97-108) Carbon Dioxide Level 21mmol/L (18-29) Blood Urea Nitrogen 26mg/dL (8-27) Creatinine 1.77mg/dL (0.76-1.27) Estimat Glomerular Filtration Rate 40mL/min (>59) Glucose Level 103mg/dL (60-99) Calcium Level 8.5mg/dL (8.5-10.1) Magnesium Level 1.9mg/dL (1.6-2.6) Total Bilirubin 0.6mg/dL (0.0-1.2) Aspartate Amino Transf (AST/SGOT) 41U/L (0-50) Alanine Aminotransferase (ALT/SGPT) 27U/L (0-44) Alkaline Phosphatase 70U/L (25-160) Troponin T 0.056ug/L (0.0-0.011) Pro-B-Type Natriuretic Peptide 42205zp/mL (0-486) Total Protein 6.6g/dL (6.4-8.4) Albumin 3.2g/dL (3.4-5.0) Procalcitonin 0.06ng/mL (0.00-0.08) D-Dimer 0.78mg/L FEU (<0.50) Lactic Acid Level 1.2mmol/L (0.4-2.0) Urine Color Yellow (YELLOW) Urine Appearance Hazy (CLEAR,HAZY) Urine pH 6.5 (5.0-8.0) Urine Specific [place] 1.020 (1.003-1.035) Urine Protein 30mg/dL (NEG,TRACE) Urine Glucose (UA) Negativemg/dL (NEGATIVE) Urine Ketones Negativemg/dL (NEGATIVE) Urine Occult Blood Trace (NEGATIVE) Urine Nitrite Positive (NEGATIVE) Urine Bilirubin Negative (NEGATIVE) Urine Urobilinogen Normalmg/dL (NORMAL) Urine Leukocyte Esterase Small (NEGATIVE) Urine RBC 0-2/hpf (0-2) Urine WBC Packed/hpf (0-5) Urine Epithelial Cells Few/hpf (NONE-MOD) Urine Crystals None seen (NONE SEEN) Urine Bacteria Many/hpf (NONE-FEW) Urine Hyaline Casts None/lpf (NONE) Urine Granular Casts None seen (NONE SEEN) Urine Waxy Casts None seen (NONE SEEN) Urine Red Blood Cell Casts None seen (NONE SEEN) Urine White Blood Cell Casts None seen (NONE SEEN) Urine Mucus None seen (None Seen) Urine Trichomonas None seen (NONE SEEN) Urine Yeast None (NONE SEEN) Urinalysis Comment None Urine Culture Reflexed Indicated Test 09/01/16 02:05 White Blood Count 5.5th/mm3 (3.8-10.1) Red Blood Count 3.86mil/mm3 (4.40-5.80) Hemoglobin 12.0g/dL (13.8-17.2) Hematocrit 37.6% (41.0-50.0) Mean Corpuscular Volume 97.4fL (81-100) Mean Corpuscular Hemoglobin 31.1pg (27.0-35.0) Mean Corpuscular Hemoglobin Concent 31.9% (32.0-37.0) Red Cell Distribution Width 15.0% (12.3-15.4) Platelet Count 338bil/L (150-400) Neutrophils (%) (Auto) 90.7% (40-74) Lymphocytes (%) (Auto) 7.0% (14-46) Monocytes (%) (Auto) 1.7% (4-12) Eosinophils (%) (Auto) 0% (0-5) Basophils (%) (Auto) 0.2% (0-3) Prothrombin Time 24.8sec (8.1-12.5) Prothromb Time International Ratio 2.28ratio Assessment/Plan Assessment/Plan A/ - 76 y/o male patient is on warfarin for atrial fibrillation and recently diagnosed with pulmonary embolism - Home dose: reported 5mg daily (no record of outpt), unknown last dose taken - INR: 1.78; Hct/Plt: 36.6/426, no s/s of bruises or bleed - Patient was first thought to have pneumonia, in ED, he received one dose of Vancomycin, Levaquin, and Zosyn, and no antibiotics at this moment - Heparin drip was initiated until INR is therapeutic P/ - Give Warfarin 5mg tonight (08/31). INR ordered until 09/05 Pharmacy will monitor s/s of bleeding, INR level, and dose warfarin daily Thank you Chani Rodriguez Sep 01, 2016 04:18
[2016-09-01 05:58] LABS: INR 2.41 ratio
[2016-09-01] MEDS ORDERED: Albuterol 2.5 mg/3 mL Inhalation Solution NEB PRN (07:00)
[2016-09-01] MEDS: Ipratropium 0.02% 0.5 mg/2.5 mL Inhalation Solution NEB SCH ×4 (07:43→19:57)
[2016-09-01] MEDS ORDERED: Diltiazem HCl 125 MG in 0.9% Sodium Chloride 100 ML, Pharmacy To Mix 1 EA IV SCH (08:00)
--- NOTE | 2016-09-01 08:18 | NUR ---
Spoke with Montse at [facility] in patient access and he is 100% permanent and total service connected and also holds MCR A and B Updated PRODUCTION QUALITY ANALYST
[2016-09-01] MEDS ORDERED: LORazepam 0.5 mg Tablet PO ONE (09:00)
[2016-09-01] MEDS: Pantoprazole 20 mg ER24 Tablet PO SCH (09:09)
[2016-09-01] MEDS: Furosemide 10 mg/mL 4 mL Inj IVPUSH SCH ×2 (09:10→17:29)
[2016-09-01] MEDS: Sodium Chloride LOK Flush 10 mL Syringe IVFLUSH SCH ×2 (09:22→15:45)
--- NOTE | 2016-09-01 11:29 | NUR ---
Social Work: Initial Assessment/Multidisciplinary Rounds D: Per EMR review, pt is a 76 year old male admitted for SOB/Pneumonia/ACS/CHF. Pt is 100 percent service connected with the [place]; pt has has Medicare. ASSISTANT ACCOUNTING MANAGER inquired if pt wishes to use his VA benefit or [facility] for hospitzation coverage. Pt states that he would like to use his VA benefit. PCP continues to be through the [place]. NOK is Darwin Perez, friend, . Advanced directives not completed- POLST on file. Pt declined AD info from ASSISTANT ACCOUNTING MANAGER. Reamdit score not entered at this time. Pt discussed in am round. ASSISTANT ACCOUNTING MANAGER and MD familiar with this patient. Pt frequently admitted to [facility] and was recently down at the [facility] in [place]. Anticipate pt to likely require several days of hospitalization. D/c needs unknown at this time. ASSISTANT ACCOUNTING MANAGER met with the patient at bedside. Sw role explained, contact info and d/c planning checklist provided. Pt lives at home, alone in [place]. Pt has been ambulating with the use of a FWW but also owns a w/c. Pt has 2 steps to enter his home. Pt states that he was recently down at the [facility] and would be receptive to a transfer if they have a bed available. Pt has a history at [facility] and [facility]. Pt states that he will not return to a SNF at discharge. He is willing to consider possible home health services if the MD orders them. He is reviewing the CHOICE LIST. Pt very friendly with ASSISTANT ACCOUNTING MANAGER and willing to engage in assessment. Pt has a labile personality and is easily frustrated with the healthcare system, per previously visits and interactions with the case management department. A: Pt who lives at home, alone. P: Evolving; ASSISTANT ACCOUNTING MANAGER to continue to follow pt's clinical course closely to assess for d/c needs. Case management to call [facility] daily to inquire about bed status for this patient. NATALIE Matias Addendum: 09/01/16 at 1137 by TROY TOMAS Amended: Links added.
--- NOTE | 2016-09-01 11:49 | PCM.PNMED ---
Subjective Date of Service Sep 01, 2016 Subjective Donovan Benítez is a 76 -year-old man with past medical history significant for COPD, diastolic congestive heart failure, pacemaker placement, atrial fibrillation, PTSD requiring admission in a psychiatric facility, with multiple recurrent admissions for pneumonia who was recently admitted to an outside facility for pulmonary embolism now on warfarin who presented to the [facility] emergency department today via EMS due to shortness of breath that started 4 days ago. Patient noted dyspnea on exertion, chest pain, palpitations, chills, subjective fever, lightheadedness and swelling in his legs that has been worsening [facility]). Patient notes that his chest pain but states that this chest pain is similar to his anxiety events. He was reported to be in afib with RVR. Patient reports today feeling the same as the day before. He is anxious regarding his health condition and his 2 dogs. He reports completely positive review of systems. Exam Vital Signs Vital Sign - Last Date Time Temp Pulse Resp B/P Pulse Ox O2 Delivery O2 Flow Rate FiO2 09/01/16 08:00 126 09/01/16 07:44 22 96 Room Air 09/01/16 02:31 36.8 123/83 08/31/16 20:35 2 Intake and Output 08/31/16 08/31/16 09/01/16 Cumulative From/Thru 15:00 23:00 07:00 08/31/16 15:43 - 09/01/16 05:06 Intake Total 300 ml 300 ml Output Total 650 ml 650 ml Balance -350 ml -350 ml Intake Oral 300 ml 300 ml Output Urine Total 650 ml 650 ml # Bowel Movements 0 0 Exam General: No acute distress, chronically ill-appearing, appropriately interactive appears anxious HEENT: Normocephalic, atraumatic. External ears without defect. Pupils equal, round, and reactive to light and accommodation, with sunglasses in place. Anicteric sclerae, moist conjunctivae, and no lid lag. Oropharynx free of erythema and cobble stoning with moist mucosa. Neck: Supple with full range of motion. No jugular venous distension. No lymphadenopathy or thyromegaly. Cardiovascular: Regular rate and irregular rhythm with soft systolic murmur. Pulmonary: Clear to auscultation bilaterally with no crackles, wheezes, or rhonchi. Normal respiratory effort with no use of accessory muscles. Reduced breath sounds at right base. Abdomen: Bowel tones present. Soft, nontender, nondistended. No hepatosplenomegaly or masses appreciated. Extremities: No clubbing, cyanosis. Bilateral pitting lower extremity edema up to the knee. Skin: Normal temperature, turgor, and texture; no rash, ulcers, or subcutaneous nodules appreciated. Neurological: Cranial nerves grossly intact. Normal muscle strength, tone, and bulk. No known gait impairment. Psychiatric: Anxious but pleasant and cooperative.. Alert and oriented to person , place, and time. IVs and Medications Medications Reviewed: Medications were reviewed in detail Lab and Diagnostics Result Diagram: 09/01/16 0205 09/01/16 0420 X-Rays, CTs and MRIs CT CHEST WITHOUT CONTRAST IMPRESSION: Small to moderate bilateral pleural effusions with adjacent atelectasis. Additional patchy consolidation in the left lung base possibly pneumonia or aspiration. Please correlate clinically. Mild cardiomegaly. Circumferential lower chest wall edema, possibly third spacing/anasarca. Please correlate clinically. Dictated by: Rizwan Orta M.D. on 08/31/2016 at 18:13 X-RAY CHEST ONE VIEW, PORTABLE IMPRESSION: The bibasilar pneumonia, left greater than right, possible mild or early pneumonia right upper lobe. 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 Dictated by: William Baker M.D. on 08/31/2016 at 16:23 Cardiac Echo Impressions Interpretation Summary Left ventricular systolic function is normal without focal wall motion abnormalities. The ejection fraction is estimated to be 60-65%. LVEF has not changed since priro study. Left ventricular wall thickness is mild-moderately increased. The right ventricle is at the upper limits of normal in size. The right ventricular systolic function is normal. Right ventricular systolic pressure is estimated to be 20 mmHg plus the clinically estimated CVP which cannot be estimated on this exam. The left atrium is severely dilated. The right atrium is severely dilated. There is mild mitral regurgitation. There is no other significant valvular heart disease. The aortic root is mildly dilated. The ascending aorta is mildly enlarged. The aortic arch is mildly enlarged. E/E' med: 15.1 Assessment & Plan Donovan Benítez is a 76 -year-old man with past medical history significant for COPD, diastolic congestive heart failure, pacemaker placement, atrial fibrillation, PTSD requiring admission in a psychiatric facility, with multiple recurrent admissions for pneumonia who was recently admitted to an outside facility for pulmonary embolism now on warfarin who presented to the [facility] emergency department today via EMS due to shortness of breath that started 4 days ago. Atrial fibrillation with rapid ventricular response, present on admission, active - Unclear if CHF exacerbated the atrial fibrillation or vice versa.Troponin elevation likely secondary to demand ischemia from rapid rate, will trend. - We will continue with outpatient by mouth medications as well. - Telemetry monitoring. - Diltiazem ggt for now. Acute exacerbation of chronic diastolic congestive heart failure, present on admission, active -Patient has noted orthopnea, exertional dyspnea and lower extremity edema over the last week. BNP is also significantly elevated at 25,000. -Patient had an echocardiogram about 3 months ago which did note a significantly elevated E to E' ratio suggestive of diastolic dysfunction. Of note, E to E' can denote diastolic dysfunction even in the setting of atrial fibrillation. -Unclear if atrial fibrillation with RVR has worsened CHF or vice versa -Strict I and O's, standing weights, CHF teaching, low-salt diet, 2 L fluid restriction - Continue diuresis, 40 mg IV Lasix BID. Acute on chronic respiratory failure in the setting of COPD and CHF, present on admission, Resolved. - Likely secondary to CHF exacerbation. Do not see evidence of pneumonia or COPD exacerbation at this time. Patient is afebrile, has no white count, has a normal calcitonin, has no cough. - Patient was given 125 mg of SoluMedrol in emergency department. - He was also given vancomycin, Zosyn and Levaquin for presumed HCAP. Patient also has a history of ESBL and we would like to prevent further antibiotic resistance in this patient. - Respiratory virus PCR panel - Ipratropium every 4 hours while awake, levalbuterol every 2 hours as needed for shortness of breath - Keep O2 saturation between 88 and 92% - Moderate sized right sided pleural effusions on CT. Patient reports a recent thoracentesis at [facility] in [place]. - Procalcitonin negative. Will d/c abs. Recent history of pulmonary embolism, present on admission, active - Patient's INR is subtherapeutic. - Warfarin per pharmacy. Chronic issues, present on admission, stable: History of PTSD, anxiety and depression - Patient feels significantly claustrophobic. Will leave the door open. - 1 time IV lorazepam 1 mg. Continue patient's outpatient by mouth lorazepam. Chronic kidney disease stage IV, stable -Appears to be patient's baseline. -Continue to monitor CODE STATUS: Full code Patient is admitted under inpatient status with expected length of stay greater than 2 midnights due to severity of presenting symptoms, risk of adverse event, and complexity of treatment plan. Pain Evaluation: Adequate Pain Control Resuscitation Status: CPR: Attempt Resuscitation Attending Statement I interviewed and examined the patient on rounds today. Improving A. fib rate control. I agree with the assessment and plan as stated above. JANEY SANCHEZ DO Sep 01, 2016 11:49 Rupesh Carolina MD Sep 02, 2016 07:11
--- NOTE | 2016-09-01 16:30 | NUR ---
Anxiety pt c/o of anxiety in AM medicated with one dose of 0.5mg Ativan. Pt resting quietly for most the day however around 1600 pt asking for more Ativan. MD made aware, no Ativan orders at his time. Ongoing care.
[2016-09-02] VITALS (12 sets, daily range): BP systolic 72–107; BP diastolic 45–76; PULSE 87–104; RESP 11–22; O2SAT 91–95
[2016-09-02] MEDS: Sodium Chloride LOK Flush 10 mL Syringe IVFLUSH SCH ×3 (00:30→17:28)
[2016-09-02 03:12] LABS: INR 3.71 ratio
--- NOTE | 2016-09-02 05:41 | NUR ---
Cardiac/Pain/Anxiety Pt on Diltiazem @ 5mg/hr pt became slightly hypotensive 75/49 and asymptomatic, diltiazem stopped and BP increased to 91/65 and HR stable at Afib 80's to 100's. Pt c/o of abdominal pain 09/15 x1 this shift. Administered 1 Tab roxicodone and effective, no further complaints. Pt also stated he was having some anxiety, allowed pt to express feelings and provided a calm environment. VSS
[2016-09-02 07:07] LABS: BASOPHILS % (AUTO) 0.1 % (0-3); EOSINOPHILS % (AUTO) 0.5 % (0-5); MONOCYTES % (AUTO) 6.3 % (4-12); Mean Corpuscular Hemoglobin 31.1 pg (27.0-35.0); Mean Corpuscular Volume 99.4 fL (81-100); NEUTROPHILS % (AUTO) 83.8 % (40-74); Platelet Count 319 bil/L (150-400)
[2016-09-02] MEDS: Ipratropium 0.02% 0.5 mg/2.5 mL Inhalation Solution NEB SCH ×4 (07:36→20:46)
[2016-09-02] MEDS: Pantoprazole 20 mg ER24 Tablet PO SCH (08:26)
[2016-09-02] MEDS ORDERED: CITA20TA PO (09:00)
--- NOTE | 2016-09-02 11:08 | PCM.PHAPRO ---
Progress Shortness of breath WARFARIN MANAGEMENT Age: Gender: Ht (in): Wt (Kg) Room Name: JAYLEN LOPEZ 76 M 62 78 2000 Indication: A.fib and recent PE Home dose: reported 5mg daily INR goal: 2-3 Admit Dx: ACS, SOB, CHF Pertinent Hx: CHF, a.fib, CKD stage IV, pacemaker replacement, COPD Hospital Team: [facility] (day) 1 [facility] DFF f Date Sep 01-Sep 02-Sep 03-Sep 04-Sep 05-Aug 06-Sep INR 1.78 2.41 3.71 Warf Dose 5 mg 2.5 hold a/p; INR jump likely related to CHF exacerbation. Hold today and follow INR. Dick Ramirez Pharm D Sep 02, 2016 11:08
[2016-09-02] MEDS: Furosemide 10 mg/mL 4 mL Inj IVPUSH SCH ×2 (11:28→17:28)
--- NOTE | 2016-09-02 16:23 | PCM.PNMED ---
Subjective Date of Service Sep 02, 2016 Subjective Donovan Benítez is a 76 -year-old man with past medical history significant for COPD, diastolic congestive heart failure, pacemaker placement, atrial fibrillation, PTSD requiring admission in a psychiatric facility, with multiple recurrent admissions for pneumonia who was recently admitted to an outside facility for pulmonary embolism now on warfarin who presented to the [facility] emergency department today via EMS due to shortness of breath that started 4 days ago. Patient noted dyspnea on exertion, chest pain, palpitations, chills, subjective fever, lightheadedness and swelling in his legs that has been worsening [facility]). Patient notes that his chest pain but states that this chest pain is similar to his anxiety events. He was reported to be in afib with RVR. Patient reports feeling very anxious today and requests a transfer to [facility]. He also requests that we not discharge him too quickly, cause last time we "missed the GI bleed." He reports completely positive review of systems. Exam Vital Signs Vital Sign - Last Date Time Temp Pulse Resp B/P Pulse Ox O2 Delivery O2 Flow Rate FiO2 09/02/16 03:51 36.5 87 11 82/51 91 Room Air 08/31/16 20:35 2 Intake and Output 09/01/16 09/01/16 09/02/16 Cumulative From/Thru 15:00 23:00 07:00 08/31/16 15:43 - 09/02/16 00:43 Intake Total 396 ml 740 ml 1436 ml Output Total 1275 ml 1925 ml Balance 396 ml -535 ml -489 ml Intake Oral 700 ml 1000 ml IV Total 396 ml 40 ml 436 ml Output Urine Total 1275 ml 1925 ml # Bowel Movements 0 0 Exam General: No acute distress, chronically ill-appearing, appropriately interactive appears very anxious HEENT: Normocephalic, atraumatic. External ears without defect. Pupils equal, round, and reactive to light and accommodation, with sunglasses in place. Anicteric sclerae, moist conjunctivae, and no lid lag. Oropharynx free of erythema and cobble stoning with moist mucosa. Neck: Supple with full range of motion. No jugular venous distension. No lymphadenopathy or thyromegaly. Cardiovascular: Regular rate and irregular rhythm with soft systolic murmur. Pulmonary: Clear to auscultation bilaterally with no crackles, wheezes, or rhonchi. Normal respiratory effort with no use of accessory muscles. Reduced breath sounds at right base. Abdomen: Bowel tones present. Soft, nontender, nondistended. No hepatosplenomegaly or masses appreciated. Extremities: No clubbing, cyanosis. Bilateral pitting lower extremity edema up to the knee. Skin: Normal temperature, turgor, and texture; no rash, ulcers, or subcutaneous nodules appreciated. Neurological: Cranial nerves grossly intact. Normal muscle strength, tone, and bulk. No known gait impairment. Psychiatric: Anxious but pleasant and cooperative.. Alert and oriented to person , place, and time. IVs and Medications Medications Reviewed: Medications were reviewed in detail Lab and Diagnostics Result Diagram: 09/01/16 0205 09/01/16 0420 X-Rays, CTs and MRIs CT CHEST WITHOUT CONTRAST IMPRESSION: Small to moderate bilateral pleural effusions with adjacent atelectasis. Additional patchy consolidation in the left lung base possibly pneumonia or aspiration. Please correlate clinically. Mild cardiomegaly. Circumferential lower chest wall edema, possibly third spacing/anasarca. Please correlate clinically. Dictated by: Rizwan Orta M.D. on 08/31/2016 at 18:13 X-RAY CHEST ONE VIEW, PORTABLE IMPRESSION: The bibasilar pneumonia, left greater than right, possible mild or early pneumonia right upper lobe. 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 Dictated by: William Baker M.D. on 08/31/2016 at 16:23 Cardiac Echo Impressions Interpretation Summary Left ventricular systolic function is normal without focal wall motion abnormalities. The ejection fraction is estimated to be 60-65%. LVEF has not changed since priro study. Left ventricular wall thickness is mild-moderately increased. The right ventricle is at the upper limits of normal in size. The right ventricular systolic function is normal. Right ventricular systolic pressure is estimated to be 20 mmHg plus the clinically estimated CVP which cannot be estimated on this exam. The left atrium is severely dilated. The right atrium is severely dilated. There is mild mitral regurgitation. There is no other significant valvular heart disease. The aortic root is mildly dilated. The ascending aorta is mildly enlarged. The aortic arch is mildly enlarged. E/E' med: 15.1 Assessment & Plan Donovan Benítez is a 76 -year-old man with past medical history significant for COPD, diastolic congestive heart failure, pacemaker placement, atrial fibrillation, PTSD requiring admission in a psychiatric facility, with multiple recurrent admissions for pneumonia who was recently admitted to an outside facility for pulmonary embolism now on warfarin who presented to the [facility] emergency department today via EMS due to shortness of breath that started 4 days ago. Atrial fibrillation with rapid ventricular response, present on admission, active - Unclear if CHF exacerbated the atrial fibrillation or vice versa.Troponin elevation likely secondary to demand ischemia from rapid rate, will trend. - We will continue with outpatient by mouth medications as well. - Telemetry monitoring. - Diltiazem 30 mg Q6H. Acute on chronic anemia. not present on admission. Active and stable. - Recent GI bleed and surgery at the [facility] within the last 2 mo. - Hgb on admit 11.4, - 09/02 - 10.1 to 10.3 on repeat. - Stool guiac pending. - LDH, haptoglobin, and peripheral smear ordered. Acute Pyuria, present on admission. Active. - He was also given vancomycin, Zosyn and Levaquin for presumed HCAP in the ED. - Patient also has a history of ESBL proteus M. in June. and we would like to prevent further antibiotic resistance in this patient, await cx and sensitivities. Acute exacerbation of chronic diastolic congestive heart failure, present on admission, active - Patient has noted orthopnea, exertional dyspnea and lower extremity edema over the last week. BNP is also significantly elevated at 25,000. - Patient had an echocardiogram about 3 months ago which did note a significantly elevated E to E' ratio suggestive of diastolic dysfunction. Of note, E to E' can denote diastolic dysfunction even in the setting of atrial fibrillation. - Unclear if atrial fibrillation with RVR has worsened CHF or vice versa - Strict I and O's, standing weights, CHF teaching, low-salt diet, 2 L fluid restriction - Continue diuresis, 40 mg IV Lasix BID. Acute on chronic respiratory failure in the setting of COPD and CHF, present on admission, Resolved. - Likely secondary to CHF exacerbation. Do not see evidence of pneumonia or COPD exacerbation at this time. Patient is afebrile, has no white count, has a normal calcitonin, has no cough. - Patient was given 125 mg of SoluMedrol in emergency department. - Ipratropium every 4 hours while awake, levalbuterol every 2 hours as needed for shortness of breath - Keep O2 saturation between 88 and 92% - Moderate sized right sided pleural effusions on CT. Patient reports a recent thoracentesis at [facility] in [place]. - Procalcitonin negative. Will d/c abs. Recent history of pulmonary embolism, present on admission, active - Patient's INR is subtherapeutic. - Warfarin per pharmacy. Chronic issues, present on admission, stable: History of PTSD, anxiety and depression - Patient feels significantly claustrophobic. Will leave the door open. - 1 time IV lorazepam 1 mg. Continue patient's outpatient by mouth lorazepam. Chronic kidney disease stage IV, stable -Appears to be patient's baseline. -Continue to monitor CODE STATUS: Full code Social: Spoke with [facility]. Thay have no available beds, and do not expect a bed to open up this weekend. They are aware of inpatient status. Patient is admitted under inpatient status with expected length of stay greater than 2 midnights due to severity of presenting symptoms, risk of adverse event, and complexity of treatment plan. Pain Evaluation: Adequate Pain Control Resuscitation Status: CPR: Attempt Resuscitation Time spent 45 minutes Attending Statement I interviewed and examined the patient on rounds today. Listened to patient at length regarding his concerns about quality of care. Offered supportive responses. I agree with the assessment and plan as stated above. JANEY SANCHEZ DO Sep 02, 2016 06:11 Rupesh Carolina MD Sep 02, 2016 17:03
--- NOTE | 2016-09-02 18:00 | NUR ---
Pain/telemetry/anxiety pt reported abdominal pain a couple times during the day. PRN oxycodone given per md order. pt transition to PO cardizem, effective in reducing hr. pt maintained blood pressure/map. pt napping throughout afternoon, noting brief dips in respiratory rate, pt arousible. maintained adequate o2 saturation. MD informed of situation. instructed to monitor. Pt reporting moderate anxiety at times. requesting meds. ordered ativan as needed as pt able to tolerate medication load. will continue to monitor.
[2016-09-02] MEDS ORDERED: LORazepam 0.5 mg Tablet PO ONE (18:05)
[2016-09-02] MEDS ORDERED: LORazepam 0.5 mg Tablet PO PRN (18:10)
[2016-09-02] MEDS ORDERED: 0.9% Sodium Chloride 100 ML ONE (20:11)
[2016-09-02] MEDS: Ertapenem Inj 500 MG in 0.9% Sodium Chloride 50 ML IV SCH (22:13)
[2016-09-03] VITALS (11 sets, daily range): BP systolic 74–111; BP diastolic 6–81; PULSE 70–113; RESP 14–20; O2SAT 92–99
[2016-09-03] MEDS: Sodium Chloride LOK Flush 10 mL Syringe IVFLUSH SCH ×3 (00:30→16:32)
--- NOTE | 2016-09-03 05:21 | NUR ---
Pain/Hypotension Pt c/o pain in his abdomen 8-10/16 x2 this shift. Administered 5mg Roxicodone x2 and effective at decreasing pain. Held pm dose of prazosin as pt BP was 90/53. VSS and Tele Afib
[2016-09-03 06:01] LABS: INR 2.73 ratio
[2016-09-03] MEDS: Ipratropium 0.02% 0.5 mg/2.5 mL Inhalation Solution NEB SCH ×4 (07:00→20:01)
[2016-09-03] MEDS: Pantoprazole 20 mg ER24 Tablet PO SCH (07:59)
--- NOTE | 2016-09-03 11:25 | NUR ---
NUTRITION ASSESSMENT: ASSESS:76 YO male admitted with shortness of breath that started 4 days ago. Patient noted dyspnea on exertion, chest pain, palpitations, chills, subjective fever, lightheadedness and swelling in his legs that has been worsening for about last week and a half. Patient noticed that he became SOB while walking a few steps which is new for him. Patient also noticed orthopnea. Patient notes that his chest pain but states that this chest pain is similar to his anxiety events. Medics noted that the patient was found in fibrillation with rapid ventricular response. Patient denies any nausea or vomiting. He does state that he feels very anxious and claustrophobic d/t complex PTSD issues. He is currently being treated for A-fib, acute exacerbation CHF, acute on chronic respiratory failure, UTI. 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 DIET:General with fluid restriction. PO intake 0 - 100% trays. LABS: Reviewed. BUN 29, Cr 1.97, Glu 166, ca 8.0, Lactate Dehydrogenaase 242, Alb 2.6. MEDICATIONS: Reviewed. Coumadin, ativan. NUTRITION FOCUSED PHYSICAL ASSESSMENT: GI symptoms / stool: BM x 1 today.Rogelio: 17. Skin Integrity: No issues reported. ANTHROPOMETRICS: Current Wt: 73.8 kgBMI: 31.0 kg/m2.Admit weight: 78.1 kg. IBW: 162% IBW. ESTIMATED NEEDS (CLASS I OBESITY): Calories: 1205 - 1445 kcal (25 - 30 kcal / kg IBW) Protein: 87 - 96 g protein (1.8 - 2.0 g / kg IBW) NUTRITION DIAGNOSIS: 1)Inconsistent PO intake related to inability to consume sufficient energy, as evidenced by 0 - 100% trays, likely due to significant psychological issues. INTERVENTION: 1) Will add supplements to trays. MONITOR/EVALUATE: PO intake, supplement tolerance, labs, GI status. Follow up per low nutrition risk guidelines.
--- NOTE | 2016-09-03 16:41 | PCM.PNMED ---
Subjective Date of Service Sep 03, 2016 Subjective 76 -year-old man with COPD, diastolic congestive heart failure, pacemaker placement, atrial fibrillation, PTSD, recurrent admissions for pneumonia, recent for pulmonary embolism presents with 4 days of shortness of breath and found to be in rapid atrial fibrillation. States he continues to feel quite weak despite better rate control and diuresis. Initiated antibiotic treatment for recurrence of his UTI yesterday. No specific complaint of dysuria or CVAT. No fevers or leukocytosis. These infections have been ESBL, now on ertapenem. Worried about gastrointestinal bleeding which he feels was missed in previous hospital admissions. He has severe anxiety and requests benzodiazepine. Exam Vital Signs Vital Sign - Last Date Time Temp Pulse Resp B/P Pulse Ox O2 Delivery O2 Flow Rate FiO2 09/03/16 11:45 78 20 94 Room Air 09/03/16 07:49 36.7 111/81 08/31/16 20:35 2 Intake and Output 09/02/16 09/02/16 09/03/16 Cumulative From/Thru 15:00 23:00 07:00 08/31/16 15:43 - 09/03/16 05:52 Intake Total 47 ml 306 ml 674 ml 3193 ml Output Total 375 ml 775 ml 950 ml 5000 ml Balance -328 ml -469 ml -276 ml -1807 ml Intake Oral 306 ml 674 ml 2710 ml IV Total 47 ml 483 ml Output Urine Total 375 ml 775 ml 950 ml 5000 ml # Bowel Movements 1 1 4 Exam General: [place] ill-appearing man in mild psychological distress HEENT: sclerae anicteric, oral mucosa moist Neck: no JVD Chest: Generally clear to auscultation, dull at bases Cardiac: S1S2, irregular Abdomen: BS normal, non-tender Extremities: No pitting edema Neuro: A&O, cranial nerves symmetric, motor strength 5-/5 diffusely, coordination normal IVs and Medications Medications Reviewed: Medications were reviewed in detail Lab and Diagnostics Result Diagram: 09/03/16 0520 09/02/16 0220 X-Rays, CTs and MRIs CT CHEST WITHOUT CONTRAST IMPRESSION: Small to moderate bilateral pleural effusions with adjacent atelectasis. Additional patchy consolidation in the left lung base possibly pneumonia or aspiration. Please correlate clinically. Mild cardiomegaly. Circumferential lower chest wall edema, possibly third spacing/anasarca. Please correlate clinically. Dictated by: Rizwan Orta M.D. on 08/31/2016 at 18:13 X-RAY CHEST ONE VIEW, PORTABLE IMPRESSION: The bibasilar pneumonia, left greater than right, possible mild or early pneumonia right upper lobe. 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 Dictated by: William Baker M.D. on 08/31/2016 at 16:23 Cardiac Echo Impressions Interpretation Summary Left ventricular systolic function is normal without focal wall motion abnormalities. The ejection fraction is estimated to be 60-65%. LVEF has not changed since priro study. Left ventricular wall thickness is mild-moderately increased. The right ventricle is at the upper limits of normal in size. The right ventricular systolic function is normal. Right ventricular systolic pressure is estimated to be 20 mmHg plus the clinically estimated CVP which cannot be estimated on this exam. The left atrium is severely dilated. The right atrium is severely dilated. There is mild mitral regurgitation. There is no other significant valvular heart disease. The aortic root is mildly dilated. The ascending aorta is mildly enlarged. The aortic arch is mildly enlarged. E/E' med: 15.1 Assessment & Plan Chronic Atrial fibrillation with acute rapid ventricular response, present on admission, active. Cause of escape from rate control is unclear. Possibly related to worsened congestive heart failure or urinary infection. - Telemetry monitoring. - Diltiazem 30 mg Q6H. Acute exacerbation of chronic diastolic congestive heart failure, present on admission, active. Patient has noted orthopnea, exertional dyspnea and lower extremity edema over the last week. BNP is also significantly elevated at 25, 000. Unclear if atrial fibrillation with RVR has worsened CHF or vice versa - Strict I and O's, standing weights, CHF teaching, low-salt diet, 2 L fluid restriction - Continue diuresis, 40 mg IV Lasix BID. Acute on chronic anxiety, History of PTSD and depression. Patient feels significantly anxious and claustrophobic. Processes limited trust with care providers at [facility]. Will leave the door open. We do not have accurate medication records and he [facility] twice daily lor[facility]epam. - Lorazepam 1 mg twice a day - Resume sertraline . Acute Pyuria, present on admission. Active. No clinical symptoms. He has history of relatively asymptomatic infections in the past. - He was also given vancomycin, Zosyn and Levaquin for presumed HCAP in the ED. - Patient also has a history of ESBL proteus M. in June. - Ertapenem initiated on 09/02/16 Acute on chronic respiratory failure in the setting of COPD and CHF, present on admission, Resolved. Likely secondary to CHF exacerbation. Do not see evidence of pneumonia or COPD exacerbation at this time. Patient is afebrile, has no white count, has a normal calcitonin, has no cough. Patient was given 125 mg of SoluMedrol in emergency department, subsequently discontinued. Moderate sized right sided pleural effusions on CT. Patient reports a recent thoracentesis at [facility] in [place]. Procalcitonin negative. No antibiotic treatment for pneumonia at this time. - Ipratropium every 4 hours while awake, levalbuterol every 2 hours as needed for shortness of breath - Keep O2 saturation between 88 and 92% Resolving or Chronic issues, present on admission, stable: Recent history of pulmonary embolism, present on admission, active. Patient's INR was subtherapeutic on admission. - Warfarin management per pharmacy. Troponin elevation, present on admission. Troponin elevation likely secondary to demand ischemia from rapid rate. Acute on chronic anemia. not present on admission. Active and stable. Recent GI bleed and surgery at the [facility] within the last 2 mo. Hgb on admit 11.4, 09/02 - 10.1 to 10.3 on repeat. Stool guiac negative. LDH, haptoglobin, and peripheral smear ordered. No evidence of GI blood loss anemia at this time. - Follow clinically Chronic kidney disease stage IV, stable -Appears to be patient's baseline. -Continue to monitor CODE STATUS: Full code Social: Spoke with [facility]. Thay have no available beds, and do not expect a bed to open up this weekend. They are aware of inpatient status. Patient is admitted under inpatient status with expected length of stay greater than 2 midnights due to severity of presenting symptoms, risk of adverse event, and complexity of treatment plan. Pain Evaluation: Adequate Pain Control VTE Prophylaxis: Theraputic Anticoag with Warfarin Resuscitation Status: CPR: Attempt Resuscitation Time spent 35 minutes Rupesh Carolina MD Sep 03, 2016 16:41
--- NOTE | 2016-09-03 17:59 | NUR ---
Anxiety Patient c/o feeling extremely anxious. PRN ativan given, patient resting with eyes closed for several hours. When patient awoke, stated he feels much more relaxed.
[2016-09-03] MEDS: Ertapenem Inj 500 MG in 0.9% Sodium Chloride 50 ML IV SCH (19:19)
[2016-09-03] MEDS ORDERED: 0.9% Sodium Chloride 250 ML IV ONE (23:25)
[2016-09-04] VITALS (12 sets, daily range): BP systolic 86–109; BP diastolic 59–77; PULSE 62–109; RESP 14–20; O2SAT 92–95
[2016-09-04] MEDS: Sodium Chloride LOK Flush 10 mL Syringe IVFLUSH SCH ×3 (00:37→15:23)
--- NOTE | 2016-09-04 00:37 | NUR ---
Hypotension BP noted to be 74/50 P 86 at 2300, symptomatic for dizziness. Provider notified, rec'd order for 250 mL NS bolus. BP improved to 90/58 P 81. Orders rec'd for 250 mL NS bolus for MAP <65. Care continues. Addendum: 09/04/16 at 0553 by ELIUD MALIN RN BP stable for the remainder of this shift. No agitation or anxiety observed. Pt slept soundly after administration of roxicodone x1 for abdominal pain and ondansetron x1 for nausea. No stools this shift. LS diminished at bases per pt's baseline, no s/s fluid overload observed.
[2016-09-04] MEDS ORDERED: 0.9% Sodium Chloride 250 ML IV ONE (01:55)
[2016-09-04] MEDS ORDERED: 0.9% Sodium Chloride 250 ML IV PRN (02:15)
[2016-09-04] MEDS: Ondansetron 2 mg/mL 2 mL Inj IVPUSH PRN (02:35)
[2016-09-04 02:47] LABS: BASOPHILS % (AUTO) 0.1 % (0-3); MONOCYTES % (AUTO) 6.9 % (4-12); Mean Corpuscular Hemoglobin 30.7 pg (27.0-35.0); Mean Corpuscular Volume 98.8 fL (81-100); NEUTROPHILS % (AUTO) 81.1 % (40-74); Platelet Count 292 bil/L (150-400)
[2016-09-04 03:03] LABS: INR 1.95 ratio
[2016-09-04] MEDS: Pantoprazole 20 mg ER24 Tablet PO SCH (05:58)
[2016-09-04] MEDS: Ipratropium 0.02% 0.5 mg/2.5 mL Inhalation Solution NEB SCH ×4 (07:00→20:30)
[2016-09-04] MEDS: LORazepam 0.5 mg Tablet PO PRN ×2 (08:53→20:17)
--- NOTE | 2016-09-04 12:48 | PCM.PNMED ---
Subjective Date of Service Sep 04, 2016 Subjective Donovan Benítez is a 76 -year-old man with past medical history significant for COPD, diastolic congestive heart failure, pacemaker placement, atrial fibrillation, PTSD requiring admission in a psychiatric facility, with multiple recurrent admissions for pneumonia who was recently admitted to an outside facility for pulmonary embolism now on warfarin who presented to the [facility] emergency department today via EMS due to shortness of breath that started 4 days ago. Patient noted dyspnea on exertion, chest pain, palpitations, chills, subjective fever, lightheadedness and swelling in his legs that has been worsening [facility]08[facility]25/16). Patient notes that his chest pain but states that this chest pain is similar to his anxiety events. He was reported to be in afib with RVR. He reports increased lower extremity weakness. His UA and vitals presented similar to his last admit when he was treated with ertapenem for ESBL proteus UTI. IV Ertapenem was started. His strength is increasing daily and we are no longer concerned about a GI bleed. Patient reports feeling very anxious today. Feeling better and stronger from the day before. He reports a nearly positive review of systems. Exam Vital Signs Vital Sign - Last Date Time Temp Pulse Resp B/P Pulse Ox O2 Delivery O2 Flow Rate FiO2 09/04/16 11:34 36.7 86 20 101/71 95 Room Air 08/31/16 20:35 2 Intake and Output 09/03/16 09/03/16 09/04/16 Cumulative From/Thru 15:00 23:00 07:00 08/31/16 15:43 - 09/04/16 05:37 Intake Total 840 ml 500 ml 4533 ml Output Total 875 ml 375 ml 6250 ml Balance -35 ml 125 ml -1717 ml Intake Oral 840 ml 200 ml 3750 ml IV Total 300 ml 783 ml Output Urine Total 875 ml 375 ml 6250 ml # Bowel Movements 0 4 Exam General: No acute distress, chronically ill-appearing, appropriately interactive appears very anxious HEENT: Normocephalic, atraumatic. External ears without defect. Pupils equal, round, and reactive to light and accommodation, with sunglasses in place. Anicteric sclerae, moist conjunctivae, and no lid lag. Oropharynx free of erythema and cobble stoning with moist mucosa. Neck: Supple with full range of motion. No jugular venous distension. No lymphadenopathy or thyromegaly. Cardiovascular: Regular rate and irregular rhythm with soft systolic murmur. Pulmonary: Clear to auscultation bilaterally with no crackles, wheezes, or rhonchi. Normal respiratory effort with no use of accessory muscles. Reduced breath sounds at right base. Abdomen: Bowel tones present. Soft, nontender, nondistended. No hepatosplenomegaly or masses appreciated. Extremities: No clubbing, cyanosis. Bilateral pitting lower extremity edema up to the knee. Skin: Normal temperature, turgor, and texture; no rash, ulcers, or subcutaneous nodules appreciated. Neurological: Cranial nerves grossly intact. Normal muscle strength, tone, and bulk. No known gait impairment. Psychiatric: Anxious but pleasant and cooperative.. Alert and oriented to person , place, and time. IVs and Medications Medications Reviewed: Medications were reviewed in detail Lab and Diagnostics Result Diagram: 09/04/1623409/04/16 023 X-Rays, CTs and MRIs CT CHEST WITHOUT CONTRAST IMPRESSION: Small to moderate bilateral pleural effusions with adjacent atelectasis. Additional patchy consolidation in the left lung base possibly pneumonia or aspiration. Please correlate clinically. Mild cardiomegaly. Circumferential lower chest wall edema, possibly third spacing/anasarca. Please correlate clinically. Dictated by: Rizwan Orta M.D. on 08/31/2016 at 18:13 X-RAY CHEST ONE VIEW, PORTABLE IMPRESSION: The bibasilar pneumonia, left greater than right, possible mild or early pneumonia right upper lobe. 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 Dictated by: William Baker M.D. on 08/31/2016 at 16:23 Cardiac Echo Impressions Interpretation Summary Left ventricular systolic function is normal without focal wall motion abnormalities. The ejection fraction is estimated to be 60-65%. LVEF has not changed since priro study. Left ventricular wall thickness is mild-moderately increased. The right ventricle is at the upper limits of normal in size. The right ventricular systolic function is normal. Right ventricular systolic pressure is estimated to be 20 mmHg plus the clinically estimated CVP which cannot be estimated on this exam. The left atrium is severely dilated. The right atrium is severely dilated. There is mild mitral regurgitation. There is no other significant valvular heart disease. The aortic root is mildly dilated. The ascending aorta is mildly enlarged. The aortic arch is mildly enlarged. E/E' med: 15.1 Assessment & Plan Chronic Atrial fibrillation with acute rapid ventricular response, present on admission, Stable. Cause of escape from rate control is unclear. Possibly related to worsened congestive heart failure or urinary infection. - Telemetry monitoring. - Diltiazem 30 mg Q6H. Acute exacerbation of chronic diastolic congestive heart failure, present on admission, active. Patient has noted orthopnea, exertional dyspnea and lower extremity edema over the last week. BNP is also significantly elevated at 25,000. Unclear if atrial fibrillation with RVR has worsened CHF or vice versa - Strict I and O's, standing weights, CHF teaching, low-salt diet, 2 L fluid restriction - Continue diuresis, 40 mg IV Lasix BID. Acute on chronic anxiety, History of PTSD and depression. Patient feels significantly anxious and claustrophobic. Processes limited trust with care providers at [facility]. Will leave the door open. We do not have accurate medication records and he claims [facility] twice daily lorazepam. - Lorazepam 1 mg twice a day - Resume sertraline . Acute Pyuria, present on admission. Active. No clinical symptoms. He has history of relatively asymptomatic infections in the past. - He was also given vancomycin, Zosyn and Levaquin for presumed HCAP in the ED. - Patient also has a history of ESBL proteus M. in June. - Ertapenem initiated on 09/02/16 Acute on chronic respiratory failure in the setting of COPD and CHF, present on admission, Resolved. Likely secondary to CHF exacerbation. Do not see evidence of pneumonia or COPD exacerbation at this time. Patient is afebrile, has no white count, has a normal calcitonin, has no cough. Patient was given 125 mg of SoluMedrol in emergency department, subsequently discontinued. Moderate sized right sided pleural effusions on CT. Patient reports a recent thoracentesis at [facility] in [place]. Procalcitonin negative. No antibiotic treatment for pneumonia at this time. - Ipratropium every 4 hours while awake, levalbuterol every 2 hours as needed for shortness of breath - Keep O2 saturation between 88 and 92% Resolving or Chronic issues, present on admission, stable: Recent history of pulmonary embolism, present on admission, active. Patient's INR was subtherapeutic on admission. - Warfarin management per pharmacy. Troponin elevation, present on admission. Troponin elevation likely secondary to demand ischemia from rapid rate. Acute on chronic anemia. not present on admission. Active and stable. Recent GI bleed and surgery at the [facility] within the last 2 mo. Hgb on admit 11.4, 09/02 - 10.1 to 10.3 on repeat. Stool guiac negative. LDH, haptoglobin, and peripheral smear ordered. No evidence of GI blood loss anemia at this time. - Follow clinically Chronic kidney disease stage IV, stable -Appears to be patient's baseline. -Continue to monitor CODE STATUS: Full code Social: Spoke with [facility]. They have no available beds, and do not expect a bed to open up this weekend. They are aware of inpatient status. Patient is admitted under inpatient status with expected length of stay greater than 2 midnights due to severity of presenting symptoms, risk of adverse event, and complexity of treatment plan. Pain Evaluation: Adequate Pain Control VTE Prophylaxis: Theraputic Anticoag with Warfarin Resuscitation Status: CPR: Attempt Resuscitation Attending Statement I interviewed and examined the patient on rounds today. I agree with the assessment and plan as stated above. JANEY SANCHEZ DO Sep 04, 2016 12:48 Rupesh Carolina MD Sep 05, 2016 07:05
--- NOTE | 2016-09-04 15:12 | NUR ---
Anxiety Patient c/o extreme anxiety at beginning of shift. PRN lorazepam ordered and given with good effect. No further s/sx or c/o of anxiety.
[2016-09-04] MEDS: Ertapenem Inj 500 MG in 0.9% Sodium Chloride 50 ML IV SCH (20:35)
[2016-09-05] VITALS (10 sets, daily range): BP systolic 99–111; BP diastolic 62–78; PULSE 77–109; RESP 16–22; O2SAT 91–97
[2016-09-05] MEDS: Sodium Chloride LOK Flush 10 mL Syringe IVFLUSH SCH ×3 (00:39→16:26)
--- NOTE | 2016-09-05 03:18 | NUR ---
Behavior Pt irate that soda wasn't given at what he considers, "proper time." Pt up from bed and yelling in the hallway for a soda. Pt on fluid restrictions.
[2016-09-05] MEDS: Ondansetron 2 mg/mL 2 mL Inj IVPUSH PRN (05:40)
[2016-09-05] MEDS: Ipratropium 0.02% 0.5 mg/2.5 mL Inhalation Solution NEB SCH ×4 (06:00→20:24)
[2016-09-05] MEDS: Pantoprazole 20 mg ER24 Tablet PO SCH (07:04)
[2016-09-05 07:32] LABS: INR 1.37 ratio
--- NOTE | 2016-09-05 08:32 | NUR ---
Spoke with Montse in patient access at [facility] and there are no beds available today. Updated RN SURGICAL
[2016-09-05] MEDS: LORazepam 0.5 mg Tablet PO PRN (09:04)
--- NOTE | 2016-09-05 12:42 | NUR ---
Pt will need a f/u apt at the anti-coag clinic at [place], . advised DATAST[employer] ARCHITECT>
--- NOTE | 2016-09-05 14:01 | PCM.PNMED ---
Subjective Date of Service Sep 05, 2016 Subjective Donovan Benítez is a 76 -year-old man with past medical history significant for COPD, diastolic congestive heart failure, pacemaker placement, atrial fibrillation, PTSD requiring admission in a psychiatric facility, with multiple recurrent admissions for pneumonia who was recently admitted to an outside facility for pulmonary embolism now on warfarin who presented to the [facility] emergency department today via EMS due to shortness of breath that started 4 days ago. Patient noted dyspnea on exertion, chest pain, palpitations, chills, subjective fever, lightheadedness and swelling in his legs that has been worsening [facility]08[facility]16). Patient notes that his chest pain but states that this chest pain is similar to his anxiety events. He was reported to be in afib with RVR. He reports increased lower extremity weakness. His UA and vitals presented similar to his last admit when he was treated with ertapenem for ESBL proteus UTI. IV Ertapenem was started. His strength is increasing daily and we are no longer concerned about a GI bleed. Patient reports feeling a bit more anxious today. Feeling better and stronger from the day before. He reports a nearly positive review of systems daily and expresses desire to increase strength. Exam Vital Signs Vital Sign - Last Date Time Temp Pulse Resp B/P Pulse Ox O2 Delivery O2 Flow Rate FiO2 09/05/16 11:44 83 16 95 Room Air 09/05/16 08:56 36.6 103/66 08/31/16 20:35 2 Intake and Output 09/04/16 09/04/16 09/05/16 Cumulative From/Thru 15:00 23:00 07:00 08/31/16 15:43 - 09/05/16 06:08 Intake Total 900 ml 400 ml 5833 ml Output Total 500 ml 300 ml 7050 ml Balance 400 ml 100 ml -1217 ml Intake Oral 900 ml 400 ml 5050 ml IV Total 783 ml Output Urine Total 500 ml 300 ml 7050 ml # Bowel Movements 1 1 6 Exam General: No acute distress, chronically ill-appearing, appropriately interactive appears very anxious HEENT: Normocephalic, atraumatic. External ears without defect. Pupils equal, round, and reactive to light and accommodation, with sunglasses in place. Anicteric sclerae, moist conjunctivae, and no lid lag. Oropharynx free of erythema and cobble stoning with moist mucosa. Neck: Supple with full range of motion. No jugular venous distension. No lymphadenopathy or thyromegaly. Cardiovascular: Regular rate and irregular rhythm with soft systolic murmur. Pulmonary: Clear to auscultation bilaterally with no crackles, wheezes, or rhonchi. Normal respiratory effort with no use of accessory muscles. Reduced breath sounds at right base. Abdomen: Bowel tones present. Soft, nontender, nondistended. No hepatosplenomegaly or masses appreciated. Extremities: No clubbing, cyanosis. Bilateral pitting lower extremity edema up to the knee. Skin: Normal temperature, turgor, and texture; no rash, ulcers, or subcutaneous nodules appreciated. Neurological: Cranial nerves grossly intact. Normal muscle strength, tone, and bulk. No known gait impairment. Psychiatric: Anxious but pleasant and cooperative.. Alert and oriented to person , place, and time. IVs and Medications Medications Reviewed: Medications were reviewed in detail Lab and Diagnostics Result Diagram: 09/05/16 0655 09/05/16 0655 X-Rays, CTs and MRIs CT CHEST WITHOUT CONTRAST IMPRESSION: Small to moderate bilateral pleural effusions with adjacent atelectasis. Additional patchy consolidation in the left lung base possibly pneumonia or aspiration. Please correlate clinically. Mild cardiomegaly. Circumferential lower chest wall edema, possibly third spacing/anasarca. Please correlate clinically. Dictated by: Rizwan Orta M.D. on 08/31/2016 at 18:13 X-RAY CHEST ONE VIEW, PORTABLE IMPRESSION: The bibasilar pneumonia, left greater than right, possible mild or early pneumonia right upper lobe. 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 Dictated by: William Baker M.D. on 08/31/2016 at 16:23 Cardiac Echo Impressions Interpretation Summary Left ventricular systolic function is normal without focal wall motion abnormalities. The ejection fraction is estimated to be 60-65%. LVEF has not changed since priro study. Left ventricular wall thickness is mild-moderately increased. The right ventricle is at the upper limits of normal in size. The right ventricular systolic function is normal. Right ventricular systolic pressure is estimated to be 20 mmHg plus the clinically estimated CVP which cannot be estimated on this exam. The left atrium is severely dilated. The right atrium is severely dilated. There is mild mitral regurgitation. There is no other significant valvular heart disease. The aortic root is mildly dilated. The ascending aorta is mildly enlarged. The aortic arch is mildly enlarged. E/E' med: 15.1 Assessment & Plan ESBL proteus UTI, present on admission. Active. - No clinical symptoms aside from lower extremity weakness. He has history of relatively asymptomatic infections in the past. - Ertapenem initiated on 09/02/16 - Infectious disease consult, recommendations for length of treatment and expertise appreciated. Chronic Atrial fibrillation with acute rapid ventricular response, present on admission, Stable. Cause of escape from rate control is unclear. Possibly related to worsened congestive heart failure or urinary infection. - Telemetry monitoring. - Diltiazem 30 mg Q6H. Acute exacerbation of chronic diastolic congestive heart failure, present on admission, active. Patient has noted orthopnea, exertional dyspnea and lower extremity edema over the last week. BNP is also significantly elevated at 25,000. Unclear if atrial fibrillation with RVR has worsened CHF or vice versa - Strict I and O's, standing weights, CHF teaching, low-salt diet, 2 L fluid restriction - Continue diuresis, 40 mg IV Lasix BID. Acute on chronic anxiety, History of PTSD and depression. Patient feels significantly anxious and claustrophobic. Processes limited trust with care providers at [facility]. Will leave the door open. We do not have accurate medication records and he claims his [facility] him twice daily lorazepam. - Lorazepam 1 mg twice a day - Resume sertraline . Acute on chronic respiratory failure in the setting of COPD and CHF, present on admission, Resolved. Likely secondary to CHF exacerbation. Do not see evidence of pneumonia or COPD exacerbation at this time. Patient is afebrile, has no white count, has a normal calcitonin, has no cough. Patient was given 125 mg of SoluMedrol in emergency department, subsequently discontinued. Moderate sized right sided pleural effusions on CT. Patient reports a recent thoracentesis at [facility] in [place]. Procalcitonin negative. No antibiotic treatment for pneumonia at this time. - Ipratropium every 4 hours while awake, levalbuterol every 2 hours as needed for shortness of breath - Keep O2 saturation between 88 and 92% Resolving or Chronic issues, present on admission, stable: Recent history of pulmonary embolism, present on admission, active. Patient's INR was subtherapeutic on admission. - Warfarin management per pharmacy. Troponin elevation, present on admission. Troponin elevation likely secondary to demand ischemia from rapid rate. Acute on chronic anemia. not present on admission. Active and stable. Recent GI bleed and surgery at the [facility] within the last 2 mo. Hgb on admit 11.4, 09/02 - 10.1 to 10.3 on repeat. Stool guiac negative. LDH, haptoglobin, and peripheral smear ordered. No evidence of GI blood loss anemia at this time. - Follow clinically Chronic kidney disease stage IV, stable -Appears to be patient's baseline. -Continue to monitor CODE STATUS: Full code Social: Spoke with [facility]. They have no available beds, and do not expect a bed to open up this weekend. They are aware of inpatient status. Patient is admitted under inpatient status with expected length of stay greater than 2 midnights due to severity of presenting symptoms, risk of adverse event, and complexity of treatment plan. Pain Evaluation: Adequate Pain Control VTE Prophylaxis: Theraputic Anticoag with Warfarin Resuscitation Status: CPR: Attempt Resuscitation Attending Statement I interviewed and examined the patient on rounds today. Cardiac stable, requiring ongoing treatment for urinary infection. I agree with the assessment and plan as stated above. JANEY SANCHEZ DO Sep 05, 2016 14:01 Rupesh Carolina MD Sep 05, 2016 19:07
--- NOTE | 2016-09-05 16:44 | CONS ---
[address] [address] CONSULTATION REPORT PATIENT: JAYLEN LOPEZ : 1940 MR#: [id number] ADMIT: 08/31/2016 JOB ID: [id number] DATE OF SERVICE: 09/05/[address] Cleary for this timely consult. REASON FOR CONSULT: Complicated urinary tract infection due to ESBL E. coli. HISTORY OF PRESENT ILLNESS: The patient is an extremely unfortunate gentleman well known to me from an admission earlier this year. 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 When we saw him here in the hospital in June, the patient was having a very difficult time in terms of the enterocutaneous fistula and attendant problems and also was suffering from a complicated urinary tract infection as well as respiratory RSV infection. Our plan at that time was to continue with IV ertapenem for his very resistant gram-negative urinary tract infection. It is also notable at that time, he was receiving TPN for his enterocutaneous fistula as well as prednisone for COPD and we were very worried about the possibility of a fungemia. The plan was for him to be transferred to the [facility] in [place] and apparently this was eventually done after I had signed off on the case. The patient then had a very long hospital stay at the [facility]. We do not have complete records, but some of the house staff caring for the patient have found out that the during the time of the [facility] surgery, his enterocutaneous fistula was repaired and instead ostomy was placed in his upper abdomen. He still has apparently stool via the rectum as well as output through this ostomy, and he is now much improved overall. In spite of his successful surgery at the [facility] in [place], the patient still has some ongoing problems and was admitted to [facility] again on August 31 with progressive shortness of breath for several days. This shortness of breath was severe when he exerted himself, and was associated with some chest pain, palpitations, chills, sweats, lightheadedness and weakness. He also noticed his legs have been swelling up for about a week prior to his admission on the . He also noted that he had orthopnea and increase in baseline anxiety. In the emergency department on the , he was found to have AFib with rapid ventricular response. Additional studies were done which included urinalysis when it was noted the patient complained of dysuria. That urinalysis returned packed with white cells, and subsequent grew an ESBL gram-negative juan jose. Patient was appropriately started three days ago on ertapenem for his highly resistant urinary gram-negative juan jose and ID consult is requested today regarding the duration and intensity recommended for treatment of this ESBL complicated urinary tract infection. PAST MEDICAL HISTORY: 1. Organic heart disease; a. Atrial fibrillation. b. Pacemaker in place. c. Periods of recurrent rapid ventricular response. 2. Chronic renal insufficiency. 3. Severe PTSD. 4. Recurrent pulmonary infections including recent RSV infection. 5. Hypertension. 6. COPD. 7. History of morbid obesity cured with bypass surgery.. 8. 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 SOCIAL HISTORY: The patient [place] up [place] the [facility] and subsequently lived in [place]. He served four years in the [employer] and [employer] and left there with PTSD. He stopped drinking and smoking 31 years ago. He has been three times. Currently lives near the hospital in an apartment. FAMILY HISTORY: Negative for TB in 1st and 2nd-degree relatives. REVIEW OF SYSTEMS: Generally quite positive. The patient reports he has headache though it is improving. He has diminished vision which is stable. No sore throat or trouble swallowing per se. No stiff neck. He is short of breath at baseline but is better than when he was admitted here now several days ago with rapid AFib. He is not currently having chest pain. He has a minimal dry cough. He has less abdominal pain than on his last admission but still a bit of pain around his right upper quadrant colostomy. He denies nausea or vomiting at this time. No diarrhea. He notes that his legs are gradually getting stronger since his surgery at the [facility], and he is able to ambulate some on his own. Remainder of the review of systems is negative. PHYSICAL EXAMINATION: Reveals a chronically ill gentleman lying supine in his hospital bed. He is quite hard of hearing. He has been afebrile since his admission now five days ago. Currently, his temp is 36.6, his pulse is 83, respiratory rate 16, blood pressure 103/66, he is saturating well on room air. The patient is alert, oriented, and able to give a history though it is a bit discombobulated. His head is without evidence of trauma. There is some evidence of what could be early temporal wasting. His eyes are without conjunctivitis or scleral icterus. His oral cavity without pharyngitis. Neck reasonably supple without adenopathy. Lungs: Clear except a few crackles, left greater than right base. Cardiac tones: Irregular rate and rhythm. The abdomen is notable for the absence of the enterocutaneous fistula he had when he was here two months ago. The ostomy is in almost the center of the abdomen above the umbilicus on the right side. There is no surrounding inflammation. His abdomen is surprisingly nontender in an area where it was quite painful previously. He does not have a Elizondo catheter nor does he have suprapubic fullness. He is wearing a diaper. No inguinal adenopathy. Lower extremities have 2+ edema bilaterally but without any skin breakdown or oozing. No evidence of cellulitis is seen. No evidence of synovitis. Patient has reasonable strength in his lower extremities, about 4/5 bilaterally. Remainder of the exam unremarkable. LABORATORIES: Include white count 7100, hematocrit 35, platelet count 292, mild left shift is present, 81% segs. His creatinine is 1.57 which is actually better than his baseline, so, this is quite good renal function for him. His LFTs normal. LDH 242. Albumin 2.6. Procalcitonin has been measured three times, all are less than 0.1. Urinalysis had packed white cells, 0-2 red cells. Serologic studies not done during this admission. Blood cultures from admission on the negative. Urine grew Proteus mirabilis which is an ESBL sensitive only to ertapenem with an excellent BURT. IMAGING: Includes a chest CT that was done shortly after admission. The chest CT shows medium-sized bilateral pleural effusions with some atelectasis, especially on the left base. Mild cardiomegaly is also seen. I concur with this interpretation and do not think there is a significant underlying pneumonia. The chest x-ray itself shows bibasilar infiltrates, pneumonia versus atelectasis. IMPRESSION: This is a difficult case in that it is hard to know whether or not he has a true complicated urinary tract infection or simply asymptomatic bacteriuria. This patient is known to harbor extremely resistant organisms and is a frequent patient on inpatient facilities receiving considerable antibiotics and this has produced a very resistant Proteus organism. Given the fact he has pyuria, positive culture, and does report dysuria, I believe we have to treat him even though I am a bit concerned that he may not have a urinary tract infection. The patient tends on this and prior admissions to have a rather positive review of systems, so how much to make of his dysuria, urgency and frequency is unclear, but given he reports these symptoms with pyuria and with the culture, I think we have no option but to treat him here. RECOMMENDATIONS: 1. Will continue with ertapenem 500 a day for total course of 14 days. This will take us through approximately September 15. 2. If the patient is going to a intermediate facility, this could be accomplished by placement of a midline catheter which should probably be adequate to use for the next 10 days. 3. If the patient is going home, will have to try and arrange for home IV antibiotic therapy or arrange for the patient to come and go every day back to the hospital for this single infusion of ertapenem through September 15. 4. This case was discussed with Dr. Cleary. 5. As there are no additional ID decisions to be made, ID will go ahead and sign off at this time.
--- NOTE | 2016-09-05 17:50 | NUR ---
Mobility/TELE/Mentation The pt was able to ambulate in the [place] with PT today. He refused the walker, and was markedly unsteady on his feet. The pt continued to refuse despite PT and RN requests. TELE Afib 90-100's. The pt exhibits large variances in behavior throughout the shift.
[2016-09-05] MEDS: Ertapenem Inj 500 MG in 0.9% Sodium Chloride 50 ML IV SCH (22:00)
[2016-09-06] VITALS (11 sets, daily range): BP systolic 92–118; BP diastolic 60–81; PULSE 85–120; RESP 16–20; O2SAT 92–97
[2016-09-06] MEDS: Ondansetron 2 mg/mL 2 mL Inj IVPUSH PRN (01:31)
[2016-09-06] MEDS: Sodium Chloride LOK Flush 10 mL Syringe IVFLUSH SCH ×3 (01:32→18:26)
[2016-09-06 03:06] LABS: INR 1.37 ratio
--- NOTE | 2016-09-06 05:59 | NUR ---
Pain Pt c/o pain in abdomen -09/15 administered PRN oxycodone x2 this shift and effective at decreasing pain. VSS and Tele AFib 80's to 100's
[2016-09-06] MEDS: Pantoprazole 20 mg ER24 Tablet PO SCH (06:43)
--- NOTE | 2016-09-06 08:34 | NUR ---
[facility] [place] report but will transfer patient if bed is open and they have accepting doctor. Updated WRISTER
[2016-09-06] MEDS: Ipratropium 0.02% 0.5 mg/2.5 mL Inhalation Solution NEB SCH ×4 (08:46→21:00)
[2016-09-06] MEDS: LORazepam 0.5 mg Tablet PO PRN ×2 (09:04→21:03)
--- NOTE | 2016-09-06 11:15 | NUR ---
Fpc Referral: Gave access and faxed facesheet to [facility] per MD order, patient is needing additional 10 days of IV ABX and patient has HX at [facility] Addendum: 09/07/16 at 0821 by COLLEEN WEEMS CM Spoke with Patrick CLARK at [facility] and he is working with [facility] to see if they can accept patient. Patient currently owes them 1316.00 and would need to pay that upon arrival. He would also need to know he is over his 20 days so immediately he will have a copay. They would also like us to encourage patient to participate because last stay at [facility] patient was not committed to participating in therapies. Updated [facility]
--- NOTE | 2016-09-06 17:25 | PCM.PNMED ---
Subjective Date of Service Sep 06, 2016 Subjective Donovan Benítez is a 76 -year-old man with past medical history significant for COPD, diastolic congestive heart failure, pacemaker placement, atrial fibrillation, PTSD requiring admission in a psychiatric facility, with multiple recurrent admissions for pneumonia who was recently admitted to an outside facility for pulmonary embolism now on warfarin who presented to the [facility] emergency department today via EMS due to shortness of breath that started 4 days ago. Patient noted dyspnea on exertion, chest pain, palpitations, chills, subjective fever, lightheadedness and swelling in his legs that has been worsening [facility] Patient notes that his chest pain but states that this chest pain is similar to his anxiety events. He was reported to be in afib with RVR. He reports increased lower extremity weakness. His UA and vitals presented similar to his last admit when he was treated with ertapenem for ESBL proteus UTI. IV Ertapenem was started and will continue till August 15. His strength is increasing daily and we are no longer concerned about a GI bleed. We recommend a follow up with urology as an outpatient. Patient reports feeling well today. He slept for most of the day. He worked with PT well and they continue to recommend SNF. Feeling better and stronger from the day before. He reports a nearly positive review of systems daily and expresses desire to increase strength. Exam Vital Signs Vital Sign - Last Date Time Temp Pulse Resp B/P Pulse Ox O2 Delivery O2 Flow Rate FiO2 09/06/16 04:26 36.5 90 20 118/81 97 Room Air 08/31/16 20:35 2 Intake and Output 09/05/16 09/05/16 09/06/16 Cumulative From/Thru 15:00 23:00 07:00 08/31/16 15:43 - 09/06/16 05:58 Intake Total 1010 ml 711 ml 7554 ml Output Total 500 ml 7550 ml Balance 1010 ml 211 ml 4 ml Intake Oral 1010 ml 711 ml 6771 ml IV Total 783 ml Output Urine Total 500 ml 7550 ml # Voids 1 2 3 # Bowel Movements 1 1 8 Exam General: No acute distress, chronically ill-appearing, appropriately interactive appears very anxious HEENT: Normocephalic, atraumatic. External ears without defect. Pupils equal, round, and reactive to light and accommodation, with sunglasses in place. Anicteric sclerae, moist conjunctivae, and no lid lag. Oropharynx free of erythema and cobble stoning with moist mucosa. Neck: Supple with full range of motion. No jugular venous distension. No lymphadenopathy or thyromegaly. Cardiovascular: Regular rate and irregular rhythm with soft systolic murmur. Pulmonary: Clear to auscultation bilaterally with no crackles, wheezes, or rhonchi. Normal respiratory effort with no use of accessory muscles. Reduced breath sounds at right base. Abdomen: Bowel tones present. Soft, nontender, nondistended. No hepatosplenomegaly or masses appreciated. Extremities: No clubbing, cyanosis. Bilateral pitting lower extremity edema up to the knee. Skin: Normal temperature, turgor, and texture; no rash, ulcers, or subcutaneous nodules appreciated. Neurological: Cranial nerves grossly intact. Normal muscle strength, tone, and bulk. No known gait impairment. Psychiatric: Anxious but pleasant and cooperative.. Alert and oriented to person , place, and time. IVs and Medications Medications Reviewed: Medications were reviewed in detail Lab and Diagnostics Result Diagram: 09/05/16 0655 09/05/16 0655 X-Rays, CTs and MRIs CT CHEST WITHOUT CONTRAST IMPRESSION: Small to moderate bilateral pleural effusions with adjacent atelectasis. Additional patchy consolidation in the left lung base possibly pneumonia or aspiration. Please correlate clinically. Mild cardiomegaly. Circumferential lower chest wall edema, possibly third spacing/anasarca. Please correlate clinically. Dictated by: Rizwan Orta M.D. on 08/31/2016 at 18:13 X-RAY CHEST ONE VIEW, PORTABLE IMPRESSION: The bibasilar pneumonia, left greater than right, possible mild or early pneumonia right upper lobe. 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 Dictated by: William Baker M.D. on 08/31/2016 at 16:23 Cardiac Echo Impressions Interpretation Summary Left ventricular systolic function is normal without focal wall motion abnormalities. The ejection fraction is estimated to be 60-65%. LVEF has not changed since priro study. Left ventricular wall thickness is mild-moderately increased. The right ventricle is at the upper limits of normal in size. The right ventricular systolic function is normal. Right ventricular systolic pressure is estimated to be 20 mmHg plus the clinically estimated CVP which cannot be estimated on this exam. The left atrium is severely dilated. The right atrium is severely dilated. There is mild mitral regurgitation. There is no other significant valvular heart disease. The aortic root is mildly dilated. The ascending aorta is mildly enlarged. The aortic arch is mildly enlarged. E/E' med: 15.1 Assessment & Plan ESBL proteus UTI, present on admission. Active. - No clinical symptoms aside from lower extremity weakness. He has history of relatively asymptomatic infections in the past. - Ertapenem initiated on 09/02/16, will continue through August 15. Plan to place a picc line tomorrow. - Infectious disease consult, recommendations for length of treatment and expertise appreciated. Chronic Atrial fibrillation with acute rapid ventricular response, present on admission, Stable. Cause of escape from rate control is unclear. Possibly related to worsened congestive heart failure or urinary infection. - Telemetry monitoring. - Diltiazem 30 mg Q6H. Acute on chronic anxiety, History of PTSD and depression. Patient feels significantly anxious and claustrophobic. Processes limited trust with care providers at [facility]. Will leave the door open. We do not have accurate medication records and he claims [facility] daily lorazepam. - Lorazepam 1 mg twice a day - Resume sertraline . Resolving or Chronic issues, present on admission, stable: Acute on chronic respiratory failure in the setting of COPD and CHF, present on admission, Resolved. Likely secondary to CHF exacerbation. Do not see evidence of pneumonia or COPD exacerbation at this time. Patient is afebrile, has no white count, has a normal calcitonin, has no cough. Patient was given 125 mg of SoluMedrol in emergency department, subsequently discontinued. Moderate sized right sided pleural effusions on CT. Patient reports a recent thoracentesis at [facility] in [place]. Procalcitonin negative. No antibiotic treatment for pneumonia at this time. - Ipratropium every 4 hours while awake, levalbuterol every 2 hours as needed for shortness of breath - Keep O2 saturation between 88 and 92% Acute exacerbation of chronic diastolic congestive heart failure, present on admission, Resolved. Patient has noted orthopnea, exertional dyspnea and lower extremity edema over the last week. BNP is also significantly elevated at 25,000. Unclear if atrial fibrillation with RVR has worsened CHF or vice versa Recent history of pulmonary embolism, present on admission, active. Patient's INR was subtherapeutic on admission. - Warfarin management per pharmacy. Troponin elevation, present on admission. Troponin elevation likely secondary to demand ischemia from rapid rate. Acute on chronic anemia. not present on admission. Active and stable. Recent GI bleed and surgery at the [facility] within the last 2 mo. Hgb on admit 11.4, 09/02 - 10.1 to 10.3 on repeat. Stool guiac negative. LDH, haptoglobin, and peripheral smear ordered. No evidence of GI blood loss anemia at this time. - Follow clinically Chronic kidney disease stage IV, stable -Appears to be patient's baseline. -Continue to monitor CODE STATUS: Full code Social: Spoke with [facility]. They have no available beds, and do not expect a bed to open up this weekend. They are aware of inpatient status. We recommend SNF for strength and IV Ertapenem antibiotics till August 15. Patient is admitted under inpatient status with expected length of stay greater than 2 midnights due to severity of presenting symptoms, risk of adverse event, and complexity of treatment plan. Pain Evaluation: Adequate Pain Control VTE Prophylaxis: Theraputic Anticoag with Warfarin Resuscitation Status: CPR: Attempt Resuscitation Time spent 30 minutes Attending Statement I interviewed and examined the patient on rounds today. I agree with the assessment and plan as stated above. JANEY SANCHEZ DO Sep 06, 2016 08:01 Rupesh Carolina MD Sep 07, 2016 07:09
[2016-09-06] MEDS: Ertapenem Inj 500 MG in 0.9% Sodium Chloride 50 ML IV SCH (18:35)
[2016-09-07] VITALS (10 sets, daily range): BP systolic 107–119; BP diastolic 57–88; PULSE 52–119; RESP 18–20; O2SAT 88–97
[2016-09-07] MEDS: Sodium Chloride LOK Flush 10 mL Syringe IVFLUSH SCH ×3 (00:30→17:04)
[2016-09-07 05:14] LABS: INR 1.35 ratio
--- NOTE | 2016-09-07 05:18 | NUR ---
Mentation/Urine output Around 0000 pt has a bout of BM incontinence and nursing went to change and clean pt. Pt very agitated, kept asking where he was and kept yelling at nursing to stop. Tried to reorient pt but unable at that time. Nursing able to change and clean pt. Pt awake around 0400 and was A&O and agreeable to POC. Pt unable to urinate at this time, bladder scanner showed greater than 600mL. MD notified and orders for extra dose of Flowmax given. Pt has UTI and MD reluctant to place [place] or do in and out at this time. Awaiting medication from pharmacy. VSS and Tele Afib 80's to 120's.
[2016-09-07] MEDS: Pantoprazole 20 mg ER24 Tablet PO SCH (05:42)
[2016-09-07] MEDS: Ipratropium 0.02% 0.5 mg/2.5 mL Inhalation Solution NEB SCH ×5 (07:45→21:29)
[2016-09-07] MEDS: Diltiazem CD 120 mg ER24 Capsule PO SCH (09:30)
[2016-09-07] MEDS: LORazepam 0.5 mg Tablet PO PRN (09:30)
[2016-09-07] MEDS ORDERED: Sodium Chloride LOK Flush 10 mL Syringe IVFLUSH PRN ×2 (09:40)
--- NOTE | 2016-09-07 11:16 | NUR ---
NUTRITION FOLLOW-UP: ASSESS: 76 YO male admitted with shortness of breath. He is on a general diet and tolerating well at ~50-100% of meals. His wt has been stable throughout hospital stay. ID is following. 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 DIET: General with fluid restriction. PO intake 0 - 100% trays. LABS: Reviewed. (09/06) K 5.5, property site manager 1.57, Ca 7.7, Alb 2.6 MEDICATIONS: Reviewed. Coumadin, ativan. GI symptoms / stool: BMx1 09/07 Skin Integrity: No issues reported. ANTHROPOMETRICS: Current Wt: 77.1 kg BMI: 33.2 kg/m2. Admit weight: 78.1 kg ESTIMATED NEEDS Calories: 1700-1925kcal/day (22-25kcal/kg) Protein: 75-95g/day (1.0-1.2g/kg) NUTRITION DIAGNOSIS: 1) Inconsistent PO intake related to inability to consume sufficient energy, as evidenced by 0 - 100% trays, likely due to significant psychological issues.--IMPROVING INTERVENTION: 1) Continue current supplements of PBw/crackers @ 10 and yogurt @ 2 MONITOR/EVALUATE: PO intake, wt, labs, GI status, POC, nutrition status. Follow up per moderate nutrition risk guidelines.
--- NOTE | 2016-09-07 11:23 | NUR ---
Spoke with Montse at [facility] in patient access and she does not have bed available today. 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 Updated BUTTON CUTTING MACHINE OPERATOR
--- NOTE | 2016-09-07 11:24 | NUR ---
Social Work-continued d/c planning: Data:EMR reviewed. Pt is on day 7 of hospitalization for SOB per H&P. Pt is not medically stable for discharge. Pt resides at home alone. PT recommending SNF placement. SW followed up with regarding SNF placement. Pt refusing to go to SNF and states that he will go home. SW went over risk and benefits with pt and he continues to decline. SW updated in rounds that pt needs 10 days of IV abx and has already had 2 days. IV abx are once a day. SW explained recommendation of IV abx to pt and explained 3 options. 1. SNF placement 2. Daily MOC abx 3. Home infusion. Pt states he does not want to go SNF, does not want to come to MOC. Pt is agreeable to home Infusion. order receive for arrange home infusion. SW provided pt with choice list, pt has no agency preference. SW referred to rotating calendar and made referral to [facility], access given. Rupert to check benefits and call SW back. SW will continue to follow. Assessment:Pt who will need IV abx. Plan:pt to discharge home when medically stable via POV. pt declining SNF and MOC for IV abx. Pt is agreeable to Home Infusion, SW made referral to [facility]. [facility] checking benefits. SW will continue to follow. NATALIE Tidwell
[2016-09-07] MEDS ORDERED: LORazepam 0.5 mg Tablet PO ONE (13:45)
--- NOTE | 2016-09-07 17:45 | NUR ---
Discharge plan Social work came to talk about discharge plan and possible SNF placement, patient became agitated and refuses to go to SNF. Patient continued to be agitated, repeatedly asking the plan and what we were up to, stating "I don't trust you guys". This RN and MD calmly explained POC repeadtedly to patient and PRN lorazepam given which seemed to help patient relax. Patient currently resting with eyes closed, call light within reach.
--- NOTE | 2016-09-07 19:39 | PCM.PNMED ---
Subjective Date of Service Sep 07, 2016 Subjective Donovan Benítez is a 76 -year-old man with past medical history significant for COPD, diastolic congestive heart failure, pacemaker placement, atrial fibrillation, PTSD requiring admission in a psychiatric facility, with multiple recurrent admissions for pneumonia who was recently admitted to an outside facility for pulmonary embolism now on warfarin who presented to the [facility] emergency department today via EMS due to shortness of breath that started 4 days ago. Patient noted dyspnea on exertion, chest pain, palpitations, chills, subjective fever, lightheadedness and swelling in his legs that has been worsening since d/c from the [place] last , 1 week ago (08/25/16). Patient notes that his chest pain but states that this chest pain is similar to his anxiety events. He was reported to be in afib with RVR. He reports increased lower extremity weakness. His UA and vitals presented similar to his last admit when he was treated with ertapenem for ESBL proteus UTI. IV Ertapenem was started and will continue till August 15. His strength is increasing daily and we are no longer concerned about a GI bleed. We recommend a follow up with urology as an outpatient. Patient reports feeling well early in the day. He became very agitated mid-day today with thoughts of persecution. We did not place the picc line due to his agitation. He expressed extreme anxiety with going to another facility. He slept for most of the day. He worked with PT well and they continue to recommend SNF. Feeling better and stronger from the day before. He reports a nearly positive review of systems daily and expresses desire to increase strength. He does not wish to be transferred to [facility] or anywhere else aside from the [facility]. Exam Vital Signs Vital Sign - Last Date Time Temp Pulse Resp B/P Pulse Ox O2 Delivery O2 Flow Rate FiO2 09/07/16 11:07 116 09/07/16 09:25 36.6 20 110/73 88 Room Air Intake and Output 09/06/16 09/06/16 09/07/16 Cumulative From/Thru 15:00 23:00 07:00 08/31/16 15:43 - 09/07/16 05:24 Intake Total 1180 ml 300 ml 9089 ml Output Total 150 ml 150 ml 7850 ml Balance 1030 ml 150 ml 1239 ml Intake Oral 1180 ml 300 ml 8251 ml IV Total 838 ml Output Urine Total 150 ml 150 ml 7850 ml Drainage Total 0 ml 0 ml # Voids 3 # Bowel Movements 0 1 9 Exam General: No acute distress, chronically ill-appearing, appropriately interactive appears very anxious HEENT: Normocephalic, atraumatic. External ears without defect. Pupils equal, round, and reactive to light and accommodation, with sunglasses in place. Anicteric sclerae, moist conjunctivae, and no lid lag. Oropharynx free of erythema and cobble stoning with moist mucosa. Neck: Supple with full range of motion. No jugular venous distension. No lymphadenopathy or thyromegaly. Cardiovascular: Regular rate and irregular rhythm with soft systolic murmur. Pulmonary: Clear to auscultation bilaterally with no crackles, wheezes, or rhonchi. Normal respiratory effort with no use of accessory muscles. Reduced breath sounds at right base. Abdomen: Bowel tones present. Soft, nontender, nondistended. No hepatosplenomegaly or masses appreciated. Extremities: No clubbing, cyanosis. Bilateral pitting lower extremity edema up to the knee. Skin: Normal temperature, turgor, and texture; no rash, ulcers, or subcutaneous nodules appreciated. Neurological: Cranial nerves grossly intact. Normal muscle strength, tone, and bulk. No known gait impairment. Psychiatric: Anxious but pleasant and cooperative.. Alert and oriented to person , place, and time. IVs and Medications Medications Reviewed: Medications were reviewed in detail Lab and Diagnostics Result Diagram: 09/06/16 0815 09/06/16 0815 X-Rays, CTs and MRIs CT CHEST WITHOUT CONTRAST IMPRESSION: Small to moderate bilateral pleural effusions with adjacent atelectasis. Additional patchy consolidation in the left lung base possibly pneumonia or aspiration. Please correlate clinically. Mild cardiomegaly. Circumferential lower chest wall edema, possibly third spacing/anasarca. Please correlate clinically. Dictated by: Rizwan Orta M.D. on 08/31/2016 at 18:13 X-RAY CHEST ONE VIEW, PORTABLE IMPRESSION: The bibasilar pneumonia, left greater than right, possible mild or early pneumonia right upper lobe. 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 Dictated by: William Baker M.D. on 08/31/2016 at 16:23 Cardiac Echo Impressions Interpretation Summary Left ventricular systolic function is normal without focal wall motion abnormalities. The ejection fraction is estimated to be 60-65%. LVEF has not changed since priro study. Left ventricular wall thickness is mild-moderately increased. The right ventricle is at the upper limits of normal in size. The right ventricular systolic function is normal. Right ventricular systolic pressure is estimated to be 20 mmHg plus the clinically estimated CVP which cannot be estimated on this exam. The left atrium is severely dilated. The right atrium is severely dilated. There is mild mitral regurgitation. There is no other significant valvular heart disease. The aortic root is mildly dilated. The ascending aorta is mildly enlarged. The aortic arch is mildly enlarged. E/E' med: 15.1 Assessment & Plan ESBL proteus UTI, present on admission. Active. - No clinical symptoms aside from lower extremity weakness. He has history of relatively asymptomatic infections in the past. - Ertapenem initiated on 09/02/16, will continue through August 15. Plan to place a picc line tomorrow. - Infectious disease consult, recommendations for length of treatment and expertise appreciated. Chronic Atrial fibrillation with acute rapid ventricular response, present on admission, Stable. Cause of escape from rate control is unclear. Possibly related to worsened congestive heart failure or urinary infection. - Telemetry monitoring. - Diltiazem 30 mg Q6H transitioned to 120 CD PO daily. Acute on chronic anxiety, History of PTSD and depression. Patient feels significantly anxious and claustrophobic. Processes limited trust with care providers at [facility]. Will leave the door open. We do not have accurate medication records and he claims his [facility] doctors give him twice daily lorazepam. - Lorazepam 1 mg twice a day - Resume sertraline. Resolving or Chronic issues, present on admission, stable: Acute on chronic respiratory failure in the setting of COPD and CHF, present on admission, Resolved. Likely secondary to CHF exacerbation. Do not see evidence of pneumonia or COPD exacerbation at this time. Patient is afebrile, has no white count, has a normal calcitonin, has no cough. Patient was given 125 mg of SoluMedrol in emergency department, subsequently discontinued. Moderate sized right sided pleural effusions on CT. Patient reports a recent thoracentesis at [facility] in [place]. Procalcitonin negative. No antibiotic treatment for pneumonia at this time. - Ipratropium every 4 hours while awake, levalbuterol every 2 hours as needed for shortness of breath - Keep O2 saturation between 88 and 92% Acute exacerbation of chronic diastolic congestive heart failure, present on admission, Resolved. Patient has noted orthopnea, exertional dyspnea and lower extremity edema over the last week. BNP is also significantly elevated at 25,000. Unclear if atrial fibrillation with RVR has worsened CHF or vice versa Recent history of pulmonary embolism, present on admission, active. Patient's INR was subtherapeutic on admission. - Warfarin management per pharmacy. Troponin elevation, present on admission. Troponin elevation likely secondary to demand ischemia from rapid rate. Acute on chronic anemia. not present on admission. Active and stable. Recent GI bleed and surgery at the [facility] within the last 2 mo. Hgb on admit 11.4, 09/02 - 10.1 to 10.3 on repeat. Stool guiac negative. LDH, haptoglobin, and peripheral smear ordered. No evidence of GI blood loss anemia at this time. - Follow clinically Chronic kidney disease stage IV, stable -Appears to be patient's baseline. -Continue to monitor CODE STATUS: Full code Social: Spoke with [facility]. They have no available beds, and do not expect a bed to open up this weekend. They are aware of inpatient status. We recommend SNF for strength and IV Ertapenem antibiotics till August 15. Patient is admitted under inpatient status with expected length of stay greater than 2 midnights due to severity of presenting symptoms, risk of adverse event, and complexity of treatment plan. Pain Evaluation: Adequate Pain Control VTE Prophylaxis: Theraputic Anticoag with Warfarin Resuscitation Status: CPR: Attempt Resuscitation Attending Statement I interviewed and examined the patient on rounds today. I agree with the assessment and plan as stated above. JANEY SANCHEZ DO Sep 07, 2016 11:53 Rupesh Carolina MD Sep 15, 2016 07:07
[2016-09-07] MEDS: Ertapenem Inj 500 MG in 0.9% Sodium Chloride 50 ML IV SCH (20:40)
[2016-09-08] VITALS (8 sets, daily range): BP systolic 113–135; BP diastolic 80–98; PULSE 55–115; RESP 14–22; O2SAT 93–97
[2016-09-08] MEDS: Sodium Chloride LOK Flush 10 mL Syringe IVFLUSH SCH ×3 (00:34→15:39)
--- NOTE | 2016-09-08 03:26 | NUR ---
IV/Refusal Pulled out IV , refused assessment by RN , Initially refused PO meds from RN, then allowed them to be given Hard of hearing, difficult to assess, difficult to communicate with. can become withdrawn with scant provocation ON 2 Liter fluid restriction. Tele: A-Fib up to 130 generally in the low 100 range.
[2016-09-08 06:42] LABS: INR 1.52 ratio
[2016-09-08] MEDS: Pantoprazole 20 mg ER24 Tablet PO SCH (06:55)
[2016-09-08] MEDS: Ipratropium 0.02% 0.5 mg/2.5 mL Inhalation Solution NEB SCH ×5 (07:26→20:19)
[2016-09-08] MEDS: Diltiazem CD 120 mg ER24 Capsule PO SCH (08:01)
[2016-09-08] MEDS: LORazepam 0.5 mg Tablet PO PRN ×2 (08:01→21:45)
--- NOTE | 2016-09-08 11:52 | NUR ---
Pt. just went to sleep. Tx. held till pt awakens. Nsg informed. Will call.
[2016-09-08] MEDS: ERTAPENEM IM SCH (12:44)
[2016-09-08] MEDS: LIDOCAINE 1% IM SCH (12:44)
--- NOTE | 2016-09-08 17:04 | NUR ---
1619- PT. REFUSED TX @1550. REQUESTED TX AND GIVEN MED NEB. SEE MAR.
--- NOTE | 2016-09-08 18:27 | PCM.PNMED ---
Subjective Date of Service Sep 08, 2016 Subjective Donovan Benítez is a 76 -year-old man with past medical history significant for COPD, diastolic congestive heart failure, pacemaker placement, atrial fibrillation, PTSD requiring admission in a psychiatric facility, with multiple recurrent admissions for pneumonia who was recently admitted to an outside facility for pulmonary embolism now on warfarin who presented to the [facility] emergency department today via EMS due to shortness of breath that started 4 days ago. Patient noted dyspnea on exertion, chest pain, palpitations, chills, subjective fever, lightheadedness and swelling in his legs that has been worsening since [facility] , 1 [facility] ago (08/25/16). Patient notes that his chest pain but states that this chest pain is similar to his anxiety events. He was reported to be in afib with RVR. He reports increased lower extremity weakness. His UA and vitals presented similar to his last admit when he was treated with ertapenem for ESBL proteus UTI. IV Ertapenem was started and will continue till August 15. His strength is increasing daily and we are no longer concerned about a GI bleed. We recommend a follow up with urology as an outpatient. Overnight events: patient pulled out his IV access and refused to have it replaced. Patient reports feeling well early in the day. We did not place the picc line due to his agitation. He expressed extreme anxiety with going to another facility. He slept for most of the day. He worked with PT well and they continue to recommend SNF. Feeling better and stronger from the day before. He reports a nearly positive review of systems daily and expresses desire to increase strength. He does not wish to be transferred to [facility] or anywhere else aside from the [facility]. Exam Vital Signs Vital Sign - Last Date Time Temp Pulse Resp B/P Pulse Ox O2 Delivery O2 Flow Rate FiO2 09/08/16 17:03 36.6 95 18 123/87 95 Room Air 09/08/16 08:00 2.00 Intake and Output 09/07/16 09/07/16 09/08/16 Cumulative From/Thru 15:00 23:00 07:00 08/31/16 15:43 - 09/08/16 05:10 Intake Total 890 ml 364 ml 89274 ml Output Total 400 ml 250 ml 8500 ml Balance 490 ml 114 ml 1843 ml Intake Oral 890 ml 300 ml 9441 ml IV Total 64 ml 902 ml Output Urine Total 400 ml 250 ml 8500 ml Drainage Total 0 ml # Voids 3 # Bowel Movements 0 9 Exam General: No acute distress, chronically ill-appearing, appropriately interactive appears very anxious HEENT: Normocephalic, atraumatic. External ears without defect. Pupils equal, round, and reactive to light and accommodation, with sunglasses in place. Anicteric sclerae, moist conjunctivae, and no lid lag. Oropharynx free of erythema and cobble stoning with moist mucosa. Neck: Supple with full range of motion. No jugular venous distension. No lymphadenopathy or thyromegaly. Cardiovascular: Regular rate and irregular rhythm with soft systolic murmur. Pulmonary: Clear to auscultation bilaterally with no crackles, wheezes, or rhonchi. Normal respiratory effort with no use of accessory muscles. Reduced breath sounds at right base. Abdomen: Bowel tones present. Soft, nontender, nondistended. No hepatosplenomegaly or masses appreciated. Extremities: No clubbing, cyanosis. Bilateral pitting lower extremity edema up to the knee. Skin: Normal temperature, turgor, and texture; no rash, ulcers, or subcutaneous nodules appreciated. Neurological: Cranial nerves grossly intact. Normal muscle strength, tone, and bulk. No known gait impairment. Psychiatric: Anxious but pleasant and cooperative.. Alert and oriented to person , place, and time. IVs and Medications Medications Reviewed: Medications were reviewed in detail Lab and Diagnostics Result Diagram: 09/06/16 0815 09/06/16 0815 X-Rays, CTs and MRIs CT CHEST WITHOUT CONTRAST IMPRESSION: Small to moderate bilateral pleural effusions with adjacent atelectasis. Additional patchy consolidation in the left lung base possibly pneumonia or aspiration. Please correlate clinically. Mild cardiomegaly. Circumferential lower chest wall edema, possibly third spacing/anasarca. Please correlate clinically. Dictated by: Rizwan Orta M.D. on 08/31/2016 at 18:13 X-RAY CHEST ONE VIEW, PORTABLE IMPRESSION: The bibasilar pneumonia, left greater than right, possible mild or early pneumonia right upper lobe. 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 Dictated by: William Baker M.D. on 08/31/2016 at 16:23 Cardiac Echo Impressions Interpretation Summary Left ventricular systolic function is normal without focal wall motion abnormalities. The ejection fraction is estimated to be 60-65%. LVEF has not changed since priro study. Left ventricular wall thickness is mild-moderately increased. The right ventricle is at the upper limits of normal in size. The right ventricular systolic function is normal. Right ventricular systolic pressure is estimated to be 20 mmHg plus the clinically estimated CVP which cannot be estimated on this exam. The left atrium is severely dilated. The right atrium is severely dilated. There is mild mitral regurgitation. There is no other significant valvular heart disease. The aortic root is mildly dilated. The ascending aorta is mildly enlarged. The aortic arch is mildly enlarged. E/E' med: 15.1 Assessment & Plan ESBL proteus UTI, present on admission. Active. - No clinical symptoms aside from lower extremity weakness. He has history of relatively asymptomatic infections in the past. - Ertapenem initiated on 09/02/16, will continue through August 15. IM injections 1G Q24H. - Infectious disease consult, recommendations for length of treatment and expertise appreciated. Chronic Atrial fibrillation with acute rapid ventricular response, present on admission, Stable. Cause of escape from rate control is unclear. Possibly related to worsened congestive heart failure or urinary infection. - Telemetry monitoring. - Diltiazem 30 mg Q6H transitioned to 120 CD PO daily. Acute on chronic anxiety, History of PTSD and depression. Patient feels significantly anxious and claustrophobic. Processes limited trust with care providers at [facility]. Will leave the door open. We do not have accurate medication records and he claims his [facility] doctors give him twice daily lorazepam. - Lorazepam 1 mg twice a day - Resume sertraline. Resolving or Chronic issues, present on admission, stable: Acute on chronic respiratory failure in the setting of COPD and CHF, present on admission, Resolved. Likely secondary to CHF exacerbation. Do not see evidence of pneumonia or COPD exacerbation at this time. Patient is afebrile, has no white count, has a normal calcitonin, has no cough. Patient was given 125 mg of SoluMedrol in emergency department, subsequently discontinued. Moderate sized right sided pleural effusions on CT. Patient reports a recent [facility]acentesis at [facility] in [place]. Procalcitonin negative. No antibiotic treatment for pneumonia at this time. - Ipratropium every 4 hours while awake, levalbuterol every 2 hours as needed for shortness of breath - Keep O2 saturation between 88 and 92% Acute exacerbation of chronic diastolic congestive heart failure, present on admission, Resolved. Patient has noted orthopnea, exertional dyspnea and lower extremity edema over the last week. BNP is also significantly elevated at 25,000. Unclear if atrial fibrillation with RVR has worsened CHF or vice versa Recent history of pulmonary embolism, present on admission, active. Patient's INR was subtherapeutic on admission. - Warfarin management per pharmacy. Troponin elevation, present on admission. Troponin elevation likely secondary to demand ischemia from rapid rate. Acute on chronic anemia. not present on admission. Active and stable. Recent GI bleed and surgery at the [facility] within the last 2 mo. Hgb on admit 11.4, 09/02 - 10.1 to 10.3 on repeat. Stool guiac negative. LDH, haptoglobin, and peripheral smear ordered. No evidence of GI blood loss anemia at this time. - Follow clinically Chronic kidney disease stage IV, stable -Appears to be patient's baseline. -Continue to monitor CODE STATUS: Full code Social: Spoke with [facility]. They have no available beds, and do not expect a bed to open up this weekend. They are aware of inpatient status. We recommend SNF for strength and IV Ertapenem antibiotics till August 15. Patient is admitted under inpatient status with expected length of stay greater than 2 midnights due to severity of presenting symptoms, risk of adverse event, and complexity of treatment plan. Pain Evaluation: Adequate Pain Control VTE Prophylaxis: Theraputic Anticoag with Warfarin Resuscitation Status: CPR: Attempt Resuscitation Attending Statement The patient was seen and examined together with Dr. Sanchez on 09/08/2016 and I agree with the history, exam findings, and plan as outlined in the note above. I did participate in all aspects of the services provided today, including documentation and the plan of care. The patient continues to improve with regards to his breathing and diuresis. He has overall felt much improved off last 2 days. He continues to decline discharge to shelter facility and transferred back to the [facility] continues to be unavailable. JANEY SANCHEZ DO Sep 08, 2016 18:27 Joel Mckenna MD Sep 11, 2016 15:25
[2016-09-09] VITALS (9 sets, daily range): BP systolic 105–122; BP diastolic 67–88; PULSE 53–106; RESP 18–20; O2SAT 92–99
[2016-09-09] MEDS: Sodium Chloride LOK Flush 10 mL Syringe IVFLUSH SCH ×4 (00:25→21:20)
--- NOTE | 2016-09-09 05:43 | NUR ---
SOB / O2 / Pain / Tele / Refusing Care Pt c/o SOB at the beginning of the shift. Pt Placed on O2 @ 1.5L NC, and was still c/o SOB, with SpO2 sats 94-96%. RT called for Neb treatment was given, and SOB then resolved. Bilateral lung sounds are course diminished with crackles and rhonchi heard per auscultation. Pt c/o abdominal pain 10/16, medicated for Pain with Oxycodone once this shift and pain resolved. No c/o chest pain, Tele Afib per Screening Technician with base HR 100-120s. Pt medicated with PO Ativan once this evening for anxiety 11/15, with no further c/o anxiety. Pt refusing to allow RN to assess abdomen Ostomy tonight and also refused his AM Lab draws as well.
[2016-09-09] MEDS: Pantoprazole 20 mg ER24 Tablet PO SCH (09:06)
[2016-09-09] MEDS: LORazepam 0.5 mg Tablet PO PRN (09:06)
[2016-09-09] MEDS: Diltiazem CD 120 mg ER24 Capsule PO SCH (09:06)
[2016-09-09 09:11] LABS: Mean Corpuscular Hemoglobin 30.5 pg (27.0-35.0); Mean Corpuscular Volume 98.6 fL (81-100)
[2016-09-09] MEDS: ERTAPENEM IM SCH (09:15)
[2016-09-09] MEDS: LIDOCAINE 1% IM SCH (09:15)
[2016-09-09 09:18] LABS: INR 1.97 ratio
[2016-09-09] MEDS: Ipratropium 0.02% 0.5 mg/2.5 mL Inhalation Solution NEB SCH ×3 (10:32→21:22)
--- NOTE | 2016-09-09 13:26 | NUR ---
Pain/Transfer Pt reporting pain / in abd this am, given PRN oxycodone, Pt reported as effective, Pt requesting pain medication prior to Q4 seven and reporting pain had returned, spoke with MD, dose increased to 5-10mg and 5mg dose given prior to Pt's transfer. Report called to receiving ISABEL ARELLANO on [facility] and Pt transferred from room 2003 to [facility] room 3005 at ~1330.
--- NOTE | 2016-09-09 13:40 | NUR ---
Arrival on [facility] Pt transferred up to room 3005 following report from [facility] ISABEL Savage. Pt alert, req to be left alone to sleep. Introduced to staff/call light/bed controls. Pt did allow VS to be taken. On TELE: afib at 105. Bed in lowest, locked position and call light in reach.
--- NOTE | 2016-09-09 14:40 | PCM.PNMED ---
Subjective Date of Service Sep 09, 2016 Subjective Donovan Benítez is a 76 -year-old man with past medical history significant for COPD, diastolic congestive heart failure, pacemaker placement, atrial fibrillation, PTSD requiring admission in a psychiatric facility, with multiple recurrent admissions for pneumonia who was recently admitted to an outside facility for pulmonary embolism now on warfarin who presented to the [facility] emergency department today via EMS due to shortness of breath that started 4 days ago. Patient noted dyspnea on exertion, chest pain, palpitations, chills, subjective fever, lightheadedness and swelling in his legs that has been worsening [facility] Patient notes that his chest pain but states that this chest pain is similar to his anxiety events. He was reported to be in afib with RVR. He reports increased lower extremity weakness. His UA and vitals presented similar to his last admit when he was treated with ertapenem for ESBL proteus UTI. IV Ertapenem was started and will continue till August 15. His strength is increasing daily and we are no longer concerned about a GI bleed. We recommend a follow up with urology as an outpatient. Overnight events: NONE Patient reports feeling well early in the day. We did not place the picc line due to his agitation the day before, however patient was agreeable to IV line. He expressed extreme anxiety with going to another facility. He stated he was about 85% his normal strength however he slept for most of the day, refused to work with PT and often refuses to ambulate with RN. He reports a nearly positive review of systems daily and expresses desire to increase strength but does not act upon it. He does not wish to be transferred to [facility] or anywhere else aside from the [facility]. Exam Vital Signs Vital Sign - Last Date Time Temp Pulse Resp B/P Pulse Ox O2 Delivery O2 Flow Rate FiO2 09/09/16 13:40 36.7 105 20 115/67 96 Room Air 09/09/16 09:02 1.50 Intake and Output 09/08/16 09/08/16 09/09/16 Cumulative From/Thru 14:59 22:59 06:59 08/31/16 15:43 - 09/09/16 04:01 Intake Total 550 ml 100 ml 58170 ml Output Total 450 ml 0 ml 8950 ml Balance 100 ml 100 ml 2043 ml Intake Oral 550 ml 100 ml 63159 ml IV Total 902 ml Output Urine Total 450 ml 0 ml 8950 ml Drainage Total 0 ml # Voids 3 # Bowel Movements 2 11 Exam General: No acute distress, chronically ill-appearing, appropriately interactive appears very anxious HEENT: Normocephalic, atraumatic. External ears without defect. Pupils equal, round, and reactive to light and accommodation, with sunglasses in place. Anicteric sclerae, moist conjunctivae, and no lid lag. Oropharynx free of erythema and cobble stoning with moist mucosa. Neck: Supple with full range of motion. No jugular venous distension. No lymphadenopathy or thyromegaly. Cardiovascular: Regular rate and irregular rhythm with soft systolic murmur. Pulmonary: Clear to auscultation bilaterally with no crackles, wheezes, or rhonchi. Normal respiratory effort with no use of accessory muscles. Reduced breath sounds at right base. Abdomen: Bowel tones present. Soft, nontender, nondistended. No hepatosplenomegaly or masses appreciated. Extremities: No clubbing, cyanosis. Bilateral pitting lower extremity edema up to the knee. Skin: Normal temperature, turgor, and texture; no rash, ulcers, or subcutaneous nodules appreciated. Neurological: Cranial nerves grossly intact. Normal muscle strength, tone, and bulk. No known gait impairment. Psychiatric: Anxious but pleasant and cooperative.. Alert and oriented to person , place, and time. IVs and Medications Medications Reviewed: Medications were reviewed in detail Lab and Diagnostics Result Diagram: 09/09/16 0850 09/09/16 0850 X-Rays, CTs and MRIs CT CHEST WITHOUT CONTRAST IMPRESSION: Small to moderate bilateral pleural effusions with adjacent atelectasis. Additional patchy consolidation in the left lung base possibly pneumonia or aspiration. Please correlate clinically. Mild cardiomegaly. Circumferential lower chest wall edema, possibly third spacing/anasarca. Please correlate clinically. Dictated by: Rizwan Orta M.D. on 08/31/2016 at 18:13 X-RAY CHEST ONE VIEW, PORTABLE IMPRESSION: The bibasilar pneumonia, left greater than right, possible mild or early pneumonia right upper lobe. 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 Dictated by: William Baker M.D. on 08/31/2016 at 16:23 Cardiac Echo Impressions Interpretation Summary Left ventricular systolic function is normal without focal wall motion abnormalities. The ejection fraction is estimated to be 60-65%. LVEF has not changed since priro study. Left ventricular wall thickness is mild-moderately increased. The right ventricle is at the upper limits of normal in size. The right ventricular systolic function is normal. Right ventricular systolic pressure is estimated to be 20 mmHg plus the clinically estimated CVP which cannot be estimated on this exam. The left atrium is severely dilated. The right atrium is severely dilated. There is mild mitral regurgitation. There is no other significant valvular heart disease. The aortic root is mildly dilated. The ascending aorta is mildly enlarged. The aortic arch is mildly enlarged. E/E' med: 15.1 Assessment & Plan ESBL proteus UTI, present on admission. Active. - No clinical symptoms aside from lower extremity weakness. He has history of relatively asymptomatic infections in the past. - Ertapenem initiated on 09/02/16, will continue through August 15. IM injections 1G Q24H. - Infectious disease consult. Chronic Atrial fibrillation with acute rapid ventricular response, present on admission, Stable. Cause of escape from rate control is unclear. Possibly related to worsened congestive heart failure or urinary infection. - Telemetry monitoring. - Diltiazem 120 CD PO daily, however patient's HR spikes in the low 100s, will increase to 180 daily starting 09/10/16. Acute on chronic anxiety, History of PTSD and depression. Active. Patient feels significantly anxious and claustrophobic. Processes limited trust with care providers at [facility]. Will leave the door open. We do not have accurate medication records and [facility] daily lorazepam. - Lorazepam 1 mg twice a day - Resume sertraline. Resolving or Chronic issues, present on admission, stable: Acute on chronic respiratory failure in the setting of COPD and CHF, present on admission, Resolved. Likely secondary to CHF exacerbation. Do not see evidence of pneumonia or COPD exacerbation at this time. Patient is afebrile, has no white count, has a normal calcitonin, has no cough. Patient was given 125 mg of SoluMedrol in emergency department, subsequently discontinued. Moderate sized right sided pleural effusions on CT. Patient reports a recent [facility]acentesis at [facility] [place]. Procalcitonin negative. No antibiotic treatment for pneumonia at this time. - Ipratropium every 4 hours while awake, levalbuterol every 2 hours as needed for shortness of breath - Keep O2 saturation between 88 and 92% Acute exacerbation of chronic diastolic congestive heart failure, present on admission, Resolved. Patient has noted orthopnea, exertional dyspnea and lower extremity edema over the last week. BNP is also significantly elevated at 25,000. Unclear if atrial fibrillation with RVR has worsened CHF or vice versa Recent history of pulmonary embolism, present on admission, active. Patient's INR was subtherapeutic on admission. - Warfarin management per pharmacy. Troponin elevation, present on admission. Troponin elevation likely secondary to demand ischemia from rapid rate. Acute on chronic anemia. not present on admission. Active and stable. Recent GI bleed and surgery at the [facility] within the last 2 mo. Hgb on admit 11.4, 09/02 - 10.1 to 10.3 on repeat. Stool guiac negative. LDH, haptoglobin, and peripheral smear ordered. No evidence of GI blood loss anemia at this time. - Follow clinically Chronic kidney disease stage IV, stable -Appears to be patient's baseline. -Continue to monitor CODE STATUS: Full code Social: Spoke with [facility]. They have no available beds, and do not expect a bed to open up this weekend. They are aware of inpatient status. We recommend SNF for strength and IV Ertapenem antibiotics till August 15. He is requesting to go Home on Monday09/12/16, when his friend can give him a ride... Patient is admitted under inpatient status with expected length of stay greater than 2 midnights due to severity of presenting symptoms, risk of adverse event, and complexity of treatment plan. Pain Evaluation: Adequate Pain Control VTE Prophylaxis: Theraputic Anticoag with Warfarin Resuscitation Status: CPR: Attempt Resuscitation Attending Statement The patient was seen and examined together with on 09/09/2016 and I agree with the history, exam findings, and plan as outlined in the note above. I did participate in all aspects of the services provided today, including documentation and the plan of care. Patient is improving medically. We will continue to treat his ESBL Proteus urinary tract infection. The patient has improved from a respiratory standpoint. JANEY SANCHEZ DO Sep 09, 2016 14:40 Joel Mckenna MD Sep 11, 2016 07:55
--- NOTE | 2016-09-09 16:05 | NUR ---
Anxiety Pt reporting increased anxiety, tearful. Current order is BID PRN, pt states this "is not sufficient." paged, order rec'd for 0.5mg x1.
[2016-09-09] MEDS ORDERED: LORazepam 0.5 mg Tablet PO ONE (16:10)
--- NOTE | 2016-09-09 17:50 | NUR ---
Patient without IV access due to patient refusal until now. He is agreeable. One attempt at U.S. IV was unsuccessful. Will place PICC or midline first thing in the morning, whichever the hospitalist recommends. RN and MD aware that pt has no IV access overnight.
--- NOTE | 2016-09-09 18:15 | NUR ---
IV IVT unable to place IV on pt this evening. paged and does NOT want a PICC/midline placed at this time. Okay per MD to leave IV out for now and AM MD will re evaluate.
[2016-09-10] VITALS (8 sets, daily range): BP systolic 90–118; BP diastolic 63–69; PULSE 78–107; RESP 12–20; O2SAT 93–98
--- NOTE | 2016-09-10 05:08 | NUR ---
Nursing, NOC shift Patient slept well thru NOC, reluctant to change soiled gown and attends; hitting at DENTAL CERAMIST ASSISTANT and this RN. Buttocks and scrotum red, patient refused barrier cream but fresh gown and attends. Urinal available at bedside. o2 via 1.5lpm via NC, spo2 mid 90s. Denies pain/discomfort. Tele: Afib 89. Call light w/in reach, CTM for changes. Addendum: 09/10/16 at 0512 by JUAN F CANALES RN allowed emptying of ostomy; approx light green liquid emptied into graduate. Patient refused to allow t-drain dressing change to insertion site.
[2016-09-10 06:00] LABS: INR 2.56 ratio
[2016-09-10] MEDS: Pantoprazole 20 mg ER24 Tablet PO SCH (06:14)
--- NOTE | 2016-09-10 07:31 | PCM.PNMED ---
Subjective Date of Service Sep 10, 2016 Subjective Patient resting in bed in has no new complaints. He does admit to some mild abdominal pain after his ostomy placement at the [facility] a few weeks ago. Exam Vital Signs Vital Sign - Last Date Time Temp Pulse Resp B/P Pulse Ox O2 Delivery O2 Flow Rate FiO2 09/10/16 05:17 107 09/10/16 00:57 36.5 16 99/69 94 Nasal Cannula 1.50 Intake and Output 09/09/16 09/09/16 09/10/16 Cumulative From/Thru 15:00 23:00 07:00 08/31/16 15:43 - 09/10/16 05:36 Intake Total 236 ml 400 ml 02647 ml Output Total 0 ml 0 ml 8950 ml Balance 236 ml 400 ml 2679 ml Intake Oral 236 ml 400 ml 97033 ml IV Total 902 ml Output Urine Total 0 ml 0 ml 8950 ml Drainage Total 0 ml # Voids 3 # Bowel Movements 0 2 13 Exam Constitutional: Elderly male in no acute distress but does appear anxious Head: Normocephalic atraumatic Chest: Decreased breath sounds at his bases Cor: Irregular rate and rhythm S1-S2 Abdomen: Soft mild diffuse tenderness ostomy is in place no surrounding erythema bowel sounds are present stool is an ostomy bag Studies: No pedal edema Psych: Slightly anxious Neuro: Alert and oriented 3, motor strength is intact bilaterally Skin: No rashes seen on areas examined IVs and Medications Medications Reviewed: Medications were reviewed in detail Lab and Diagnostics Laboratory Tests 72 Hours Test 09/08/16 06:05 09/09/16 08:50 09/10/16 05:32 Prothrombin Time 16.4sec (8.1-12.5) 21.4sec (8.1-12.5) 27.9sec (8.1-12.5) Prothromb Time International Ratio 1.52ratio 1.97ratio 2.56ratio White Blood Count 6.3th/mm3 (3.8-10.1) Red Blood Count 3.57mil/mm3 (4.40-5.80) Hemoglobin 10.9g/dL (13.8-17.2) Hematocrit 35.2% (41.0-50.0) Mean Corpuscular Volume 98.6fL (81-100) Mean Corpuscular Hemoglobin 30.5pg (27.0-35.0) Mean Corpuscular Hemoglobin Concent 31.0% (32.0-37.0) Red Cell Distribution Width 14.7% (12.3-15.4) Platelet Count 296bil/L (150-400) Sodium Level 137mEq/L (134-144) Potassium Level 5.3mEq/L (3.5-5.2) Chloride Level 100mEq/L (97-108) Carbon Dioxide Level 27mmol/L (18-29) Blood Urea Nitrogen 23mg/dL (8-27) Creatinine 1.60mg/dL (0.76-1.27) Estimat Glomerular Filtration Rate 45mL/min (>59) Glucose Level 69mg/dL (60-99) Calcium Level 8.1mg/dL (8.5-10.1) Total Bilirubin 0.2mg/dL (0.0-1.2) Aspartate Amino Transf (AST/SGOT) 80U/L (0-50) Alanine Aminotransferase (ALT/SGPT) 34U/L (0-44) Alkaline Phosphatase 80U/L (25-160) Total Protein 5.2g/dL (6.4-8.4) Albumin 2.8g/dL (3.4-5.0) Result Diagram: 09/09/16 0850 09/09/16 0850 X-Rays, CTs and MRIs CT CHEST WITHOUT CONTRAST IMPRESSION: Small to moderate bilateral pleural effusions with adjacent atelectasis. Additional patchy consolidation in the left lung base possibly pneumonia or aspiration. Please correlate clinically. Mild cardiomegaly. Circumferential lower chest wall edema, possibly third spacing/anasarca. Please correlate clinically. Dictated by: Rizwan Orta M.D. on 08/31/2016 at 18:13 X-RAY CHEST ONE VIEW, PORTABLE IMPRESSION: The bibasilar pneumonia, left greater than right, possible mild or early pneumonia right upper lobe. 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 Dictated by: William Baker M.D. on 08/31/2016 at 16:23 PROCEDURE: X-RAY CHEST, TWO VIEWS ([id number]) INDICATIONS: hypoxia TECHNIQUE: 2 views of the chest were acquired. COMPARISON: None. FINDINGS: Surgical changes and devices: None. Lungs and pleura: No pleural effusions or pneumothorax. Lungs are abnormal with retrocardiac left lower lobe pneumonia what appears to be mild scarring over the right upper lobe. Mediastinum: Mediastinal contours are normal. Heart size is normal. Bones and chest wall: No suspicious bony abnormalities. Soft tissues appear unremarkable. IMPRESSION: Retrocardiac left lower lobe pneumonia, while mild right upper lobe scarring. Dictated by: William Baker M.D. on 09/10/2016 at 17:23 Approved by: William Baker M.D. on 09/10/2016 at 17:23 Cardiac Echo Impressions Interpretation Summary Left ventricular systolic function is normal without focal wall motion abnormalities. The ejection fraction is estimated to be 60-65%. LVEF has not changed since priro study. Left ventricular wall thickness is mild-moderately increased. The right ventricle is at the upper limits of normal in size. The right ventricular systolic function is normal. Right ventricular systolic pressure is estimated to be 20 mmHg plus the clinically estimated CVP which cannot be estimated on this exam. The left atrium is severely dilated. The right atrium is severely dilated. There is mild mitral regurgitation. There is no other significant valvular heart disease. The aortic root is mildly dilated. The ascending aorta is mildly enlarged. The aortic arch is mildly enlarged. E/E' med: 15.1 Assessment & Plan ESBL proteus UTI, present on admission. Active. - No clinical symptoms aside from lower extremity weakness. He has history of relatively asymptomatic infections in the past. - Ertapenem initiated on 09/02/16, will continue through August 15. IM injections 1G Q24H. - Infectious disease consult. Has been completed by Dr. Summers. Chronic Atrial fibrillation with acute rapid ventricular response, present on admission, Stable. Cause of escape from rate control is unclear. Possibly related to worsened congestive heart failure or urinary infection. - Telemetry monitoring. - Diltiazem 120 CD PO daily, however patient's HR spikes in the low 100s, will increase to 180 daily starting 09/10/16. Acute on chronic anxiety, History of PTSD and depression. Active. Patient feels significantly anxious and claustrophobic. Processes limited trust with care providers at [facility]. Will leave the door open. We do not have accurate medication records and he claims [facility] him twice daily lorazepam. - Lorazepam 1 mg twice a day - Resume sertraline. Acute respiratory distress with new retrocardiac pneumonic infiltrate, acute, not present on admission -Patient has developed a retrocardiac pneumonic infiltrate and will be placed on broad-spectrum antibiotics this occurred this afternoon at 6:30 PM -VBG obtained by respiratory showed pH of 7.28 PCO2 of 64 with bicarbonate of 29.[address] on BiPAP protocol and transferred to [facility] for this -We will also obtain sputum culture Gram stain and respiratory PCR Resolving or Chronic issues, present on admission, stable: Acute on chronic respiratory failure in the setting of COPD and CHF, present on admission, Resolved. Likely secondary to CHF exacerbation. Do not see evidence of pneumonia or COPD exacerbation at this time. Patient is afebrile, has no white count, has a normal calcitonin, has no cough. Patient was given 125 mg of SoluMedrol in emergency department, subsequently discontinued. Moderate sized right sided pleural effusions on CT. Patient reports a recent thoracentesis at NH in [place]. Procalcitonin negative. No antibiotic treatment for pneumonia at this time. - Ipratropium every 4 hours while awake, levalbuterol every 2 hours as needed for shortness of breath - Keep O2 saturation between 88 and 92% Acute exacerbation of chronic diastolic congestive heart failure, present on admission, Resolved. Patient has noted orthopnea, exertional dyspnea and lower extremity edema over the last week. BNP is also significantly elevated at 25,000. Unclear if atrial fibrillation with RVR has worsened CHF or vice versa -We will go ahead and check BMP today and will give dose of po Lasix 40 mg daily Recent history of pulmonary embolism, present on admission, active. Patient's INR was subtherapeutic on admission. - Warfarin management per pharmacy. Troponin elevation, present on admission. Troponin elevation likely secondary to demand ischemia from rapid rate. Acute on chronic anemia. not present on admission. Active and stable. Recent GI bleed and surgery at the NH within the last 2 mo. Hgb on admit 11.4, 09/02 - 10.1 to 10.3 on repeat. Stool guiac negative. LDH, haptoglobin, and peripheral smear ordered. No evidence of GI blood loss anemia at this time. - Follow clinically Chronic kidney disease stage IV, stable -Appears to be patient's baseline. -Continue to monitor CODE STATUS: Full code Social: [facility] beds, and do not expect a bed to open up this weekend. They are aware of inpatient status. We recommend SNF for strength and IV Ertapenem antibiotics till August 15. He is requesting to go Home on Monday09/12/16, when his friend can give him a ride... Patient is admitted under inpatient status with expected length of stay greater than 2 midnights due to severity of presenting symptoms, risk of adverse event, and complexity of treatment plan. VTE Prophylaxis: Theraputic Anticoag with Warfarin VTE Mechanical Devices: Venous Foot Pump Resuscitation Status: CPR: Attempt Resuscitation Time spent 30 minutes Sanaz Zimmer MD Sep 10, 2016 07:30
[2016-09-10] MEDS: LORazepam 0.5 mg Tablet PO PRN ×2 (07:41→17:34)
[2016-09-10] MEDS: Diltiazem CD 180 mg ER24 Capsule PO SCH (07:41)
[2016-09-10] MEDS: Sodium Chloride LOK Flush 10 mL Syringe IVFLUSH SCH ×3 (07:44→22:16)
[2016-09-10] MEDS ORDERED: Furosemide 10 mg/mL 4 mL Inj IVPUSH SCH (08:30)
[2016-09-10] MEDS: Ipratropium 0.02% 0.5 mg/2.5 mL Inhalation Solution NEB SCH ×3 (08:35→21:00)
--- NOTE | 2016-09-10 09:27 | PCM.PHAPRO ---
Progress Date of Service: Sep 10, 2016 Shortness of breath warfarin dosing Sep 01-Sep 02-Sep 03-Sep 04-Sep 05-Aug 06-Sep 07-Sep 08-Sep 09-Sep 10-Sep 1.78 2.41 3.71 2.73 1.95 1.37 1.37 1.35 1.57 1.97 2.56 0.63 1.3 -0.98 -0.78 -0.58 -0.02 0.22 0.4 0.59 5 mg 2.5 hold 1 2.5 5 5 10 10 8 2mg Jae Almaguer [facility] Sep 10, 2016 09:27
[2016-09-10] MEDS: LIDOCAINE 1% IM SCH (10:39)
[2016-09-10] MEDS: ERTAPENEM IM SCH (10:39)
--- NOTE | 2016-09-10 12:25 | NUR ---
Abd pain/ostomy drainage and sample Pt c/o 10/10 abdominal pain that increased with palpitation to all 4 quadrants. Drainage in ostomy bag was purulent looking in color and pt stated that is "was not normal looking." notified. Stool PCR sample taken from ostomy bag and sent to lab. 10 Oxycodone administered to pt for abd pain and upon reassessment pt stated that pain decreased to a 5/10.
--- NOTE | 2016-09-10 14:41 | PROG NOTE ---
[address] [address] PROGRESS NOTE PATIENT: JAYLEN LOPEZ : 1940 MR#: [id number] ADMIT: 08/31/2016 JOB ID: [id number] DATE: 09/10/2016 REASON FOR FOLLOWUP: Possible CRE from colostomy site. INTERVAL HISTORY: I saw this patient in consult about one week ago. At that time, it appeared that in addition to other issues that he may have a complicated UTI due to any ESBL E. coli. It is always difficult to know if this patient is truly infected or colonized, but we decided that we would treat him for a total of two weeks through September 15 with ertapenem, and that has been ongoing. I then signed off the case. Apparently in the last week or so, he started to have some odd discharge through his colostomy, as well as some perhaps increasing abdominal pain. There have been no reports though with fevers, chills, sweats or overt symptoms of infection. This morning, I was called by the micro lab, and they report that an abdominal swab done from the abdomen on September 06 is growing what may be a carbapenem-resistant enteric organism. This has not been confirmed but is preliminary. I came up to see how the patient was doing today. I found the patient sleeping, and when I woke him up, he opened his eyes but remained essentially noncommunicative. I was unable to get any more history. PHYSICAL EXAMINATION: Reveals a comfortable but nonspeaking gentleman. He has been afebrile throughout his long hospital stay which is now up to about its 10th day. His temperature is 36.5 this morning. Pulse 98, respiratory rate 20, blood pressure 99/69. He is saturating well on 2 L. He appears comfortable. His lungs are clear. Cardiac tones without new murmur. Abdomen is rather firm including the area around the colostomy but I see no open wounds. The colostomy had scant drainage of what almost appears to be purulent material. No skin rash noted. LABORATORIES: Include a white count yesterday 6300. Creatinine 1.6. BNP is 11,000. AST 80, ALT 34, albumin 2.8. Procalcitonin 0.04. Urinalysis had packed white cells back on August 31 and it grew Proteus mirabilis ESBL which we are treating with ertapenem. More recently, on September 06, a culture of the abdomen was done by Dr. Heredia, and I am not sure exactly how this was done, but it was growing a very light growth of what appears to be CRE. It is worth noting there were very few gram-negative rods seen on the Gram stain with this sample and no polys, suggesting it was not purulent. IMPRESSION: This is a complicated patient who has got an extended-spectrum beta-lactamase Proteus urinary tract infection which seems to be responding well to the ertapenem therapy. We now have what appears to be a CRE growing from an abdominal swab, but there was no real purulence associated with this sample as no polys were seen on the Gram stain. My sense is that this represents contamination rather than true infection in this afebrile, nontoxic-appearing gentleman but will need to continue to carefully assess the situation. RECOMMENDATIONS: 1. Continue with ertapenem through September 15. 2. We await the final identification of the abdominal organism. 3. I will see the patient again on September 12 and comment again on what we should do with antibiotics, if anything.
--- NOTE | 2016-09-10 17:25 | DRSVH ---
PROCEDURE: X-RAY CHEST, TWO VIEWS ([id number]) INDICATIONS: hypoxia TECHNIQUE: 2 views of the chest were acquired. COMPARISON: None. FINDINGS: Surgical changes and devices: None. Lungs and pleura: No pleural effusions or pneumothorax. Lungs are abnormal with retrocardiac left l ower lobe pneumonia what appears to be mild scarring over the right upper lobe. Mediastinum: Mediastinal contours are normal. Heart size is normal. Bones and chest wall: No suspicious bony abnormalities. Soft tissues appear unremarkable. IMPRESSION: Retrocardiac left lower lobe pneumonia, while mild right upper lobe scarring. Dictated by: William Baker M.D. on 09/10/2016 at 17:23 Approved by: William Baker M.D. on 09/10/2016 at 17:23
--- NOTE | 2016-09-10 17:34 | DRSVH ---
PROCEDURE: CT ABDOMEN AND PELVIS WITHOUT CONTRAST ([id number]) INDICATIONS: abd pain, prior history of enterocutaneous fistula TECHNIQUE: After the administration of oral contrast, 5 mm thick sections acquired from the diaphragms to the sy mphysis. 5 mm coronal and sagittal reformats were performed. For radiation dose reduction, the foll owing was used: automated exposure control, adjustment of mA and/or kV according to patient size. COMPARISON: None. FINDINGS: Image quality: Excellent. ABDOMEN: Lung bases: Lung bases are atelectatic posteriorly adjacent to bilateral moderate effusions. Heart size is normal. Solid organs: Liver and spleen are normal in size. Gallbladder appears previously resected. Pancre as is normal in size. No adrenal nodules. Both kidneys are normal in size, without hydronephrosis o r nephrolithiasis. Peritoneum and bowel: Bowel loops demonstrate normal wall thickness and caliber. No free fluid or a ir. Nodes and vessels: No retroperitoneal or mesenteric adenopathy by size criteria. Aorta and inferior vena cava are normal in size. Miscellaneous: No abdominal ventral hernias but the anterior midline of the upper abdominal body wal l in the area of prior identified gas and contrast within the soft tissues (series 2 image 33) there 2 separate small gas bubbles. There is a suspected enterocutaneous in this area. PELVIS: Genitourinary: Bladder wall thickness is normal. Miscellaneous: No inguinal hernias or adenopathy. There is a pelvic ventral hernia at the midline ju st above the bladder dome, containing small bowel loops with contrast within show no evidence of inca rceration or strangulation. Bones: No suspicious bony lesions. No vertebral body compression fractures. 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 No abscess is seen, no intestinal obstruction is suspected. Small nonincarcerated non-strangulated small bowel ventral hernia at the pelvic body wall, just abov e the bladder level. Moderate bilateral pleural effusions with adjacent posterior bibasilar atelecta sis, prior cholecystectomy. Dictated by: William Baker M.D. on 09/10/2016 at 17:28 Approved by: William Baker M.D. on 09/10/2016 at 17:32
[2016-09-10 17:48] LABS: Mean Corpuscular Hemoglobin 30.5 pg (27.0-35.0); Mean Corpuscular Volume 99.2 fL (81-100)
[2016-09-10 17:49] LABS: BASOPHILS % (AUTO) 0.5 % (0-3); EOSINOPHILS % (AUTO) 1.1 % (0-5); MONOCYTES % (AUTO) 12.4 % (4-12); NEUTROPHILS % (AUTO) 72.1 % (40-74); Platelet Count 279 bil/L (150-400)
--- NOTE | 2016-09-10 18:03 | ABG ---
DateTimeAnalyzed 17:55:00 -_ pH ____7.284 - pCO2 ___63.7__ -mmHg pO2 ___45.4__ -mmHg HCO3- ___29.3__ -mmol/L ABE ____1.9__ -mmol/L tHb ___11.1__ -g/dL O2Hb ___79.0__ -% COHb ____1.4__ -% MetHb ____1.0__ -% sO2 ___80.9__ -% FIO2 ___28.0__ -% Drawn By __[facility] - Date/Time Notified____ 18:03:00 -_ Liter_Flow ____2.0__ -L/min Oxygen Device 1 nasal cannula - Notified By lw - Notified Whom ___Dr. Kubisty - B 755 -mmHg tO2 ___12.3__ -Vol% Joel test N/A -
[2016-09-10] MEDS: Vancomycin Dose per Pharmacist XX SCH (18:25)
[2016-09-10] MEDS ORDERED: Piperacillin-Tazo 3.375 Gm Inj 3.375 GM in Dextrose 5% Minibag Plus 50 ML IV ONE (18:50)
[2016-09-10] MEDS ORDERED: Vancomycin Inj 1,250 MG in 0.9% Sodium Chloride 250 ML IV ONE (19:00)
--- NOTE | 2016-09-10 19:55 | PCM.CONPHA ---
Subjective Date of Service: Sep 10, 2016 Shortness of breath Objective Vital Signs Date Time Temp Pulse Resp B/P Pulse Ox O2 Delivery O2 Flow Rate FiO2 09/10/16 15:42 Supplement Oxygen 09/10/16 14:41 36.4 82 20 93/67 93 Nasal Cannula 1.50 09/10/16 12:34 98 20 95 Nasal Cannula 2.50 09/10/16 11:20 97 09/10/16 08:35 93 16 97 Nasal Cannula 2.00 09/10/16 08:00 Supplement Oxygen 09/10/16 05:17 107 09/10/16 00:57 36.5 78 16 99/69 94 Nasal Cannula 1.50 09/09/16 21:24 105 18 99 Nasal Cannula 3.50 09/09/16 21:00 Supplement Oxygen 09/09/16 20:14 36.4 106 20 105/75 97 Room Air 1.50 Intake and Output 09/08/16 09/09/16 09/10/16 00:00 00:00 00:00 Intake Total 1190 ml 914 ml 336 ml Output Total 550 ml 700 ml 0 ml Balance 640 ml 214 ml 336 ml Weight (Kilograms): 79.000 Assessment/Plan Assessment/Plan Vancomycin management per pharmacy Indication: Acute respiratory distress with new retrocardiac pneumonic infiltrate, acute, not present on admission Vancomycin trough goal: 15-20 Pertinent info: - SCr: 1.47 - Weight: 79 kg Vancomycin loading dose of 1250 mg IV one time has been ordered. However, per RN , patient does not have IV access. RN will discuss with night hospitalist regarding lack of IV access. Pharmacy to continue to follow. Thank you, Krista Whyte Pharmacist Krista Whyte Sep 10, 2016 19:55 Hazy (CLEAR,HAZY) Urine pH 6.5 (5.0-8.0) Urine Specific [place] 1.020 (1.003-1.035) Urine Protein 30mg/dL (NEG,TRACE) Urine Glucose (UA) Negativemg/dL (NEGATIVE) Urine Ketones Negativemg/dL (NEGATIVE) Urine Occult Blood Trace (NEGATIVE) Urine Nitrite Positive (NEGATIVE) Urine Bilirubin Negative (NEGATIVE) Urine Urobilinogen Normalmg/dL (NORMAL) Urine Leukocyte Esterase Small (NEGATIVE) Urine RBC 0-2/hpf (0-2) Urine WBC Packed/hpf (0-5) Urine Epithelial Cells Few/hpf (NONE-MOD) Urine Crystals None seen (NONE SEEN) Urine Bacteria Many/hpf (NONE-FEW) Urine Hyaline Casts None/lpf (NONE) Urine Granular Casts None seen (NONE SEEN) Urine Waxy Casts None seen (NONE SEEN) Urine Red Blood Cell Casts None seen (NONE SEEN) Urine White Blood Cell Casts None seen (NONE SEEN) Urine Mucus None seen (None Seen) Urine Trichomonas None seen (NONE SEEN) Urine Yeast None (NONE SEEN) Urinalysis Comment None Urine Culture Reflexed Indicated Phosphorus Level 5.0mg/dL (2.5-4.9) D-Dimer 0.52mg/L FEU (<0.50) Test 09/01/16 20:38 09/02/16 13:32 09/02/16 14:15 09/04/16 02:35 Troponin T 0.066ug/L (0.0-0.011) Hematology Comments Haptoglobin < 10mg/dL (34-200) Lactate Dehydrogenase 242U/L (100-190) Procalcitonin 0.04ng/mL (0.00-0.08) Test 09/10/16 05:32 09/10/16 17:10 Prothrombin Time 27.9sec (8.1-12.5) Prothromb Time International Ratio 2.56ratio Pro-B-Type Natriuretic Peptide 73710ee/mL (0-486) White Blood Count 6.1th/mm3 (3.8-10.1) Red Blood Count 3.61mil/mm3 (4.40-5.80) Hemoglobin 11.0g/dL (13.8-17.2) Hematocrit 35.8% (41.0-50.0) Mean Corpuscular Volume 99.2fL (81-100) Mean Corpuscular Hemoglobin 30.5pg (27.0-35.0) Mean Corpuscular Hemoglobin Concent 30.7% (32.0-37.0) Red Cell Distribution Width 14.3% (12.3-15.4) Platelet Count 279bil/L (150-400) Neutrophils (%) (Auto) 72.1% (40-74) Lymphocytes (%) (Auto) 13.7% (14-46) Monocytes (%) (Auto) 12.4% (4-12) Eosinophils (%) (Auto) 1.1% (0-5) Basophils (%) (Auto) 0.5% (0-3) Sodium Level 133mEq/L (134-144) Potassium Level 4.9mEq/L (3.5-5.2) Chloride Level 95mEq/L (97-108) Carbon Dioxide Level 26mmol/L (18-29) Blood Urea Nitrogen 23mg/dL (8-27) Creatinine 1.47mg/dL (0.76-1.27) Estimat Glomerular Filtration Rate 50mL/min (>59) Glucose Level 77mg/dL (60-99) Lactic Acid Level 1.0mmol/L (0.4-2.0) Calcium Level 7.9mg/dL (8.5-10.1) Total Bilirubin 0.2mg/dL (0.0-1.2) Aspartate Amino Transf (AST/SGOT) 110U/L (0-50) Alanine Aminotransferase (ALT/SGPT) 46U/L (0-44) Alkaline Phosphatase 89U/L (25-160) Total Protein 5.6g/dL (6.4-8.4) Albumin 2.7g/dL (3.4-5.0) Krista Whyte Sep 10, 2016 19:55
[2016-09-10] MEDS: Albuterol-Ipratropium 3 mL Inhalation Solution NEB SCH (20:30)
--- NOTE | 2016-09-10 22:02 | NUR ---
TRANSFER FROM 3004 TO 2018 1929 - Patient transferred into room 2019, very drowsy and not following commands, ordered IV abx and BIPAP, no IV access at this time, RT notified of BIPAP orders. 2144 - Patient mentation improving slightly, opens eyes to voice and squeezes hands on command, moving upper extremities but weak, IV access obtained, tolerating BiPAP well. 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
[2016-09-11] VITALS (12 sets, daily range): BP systolic 89–120; BP diastolic 58–82; PULSE 71–107; RESP 14–20; O2SAT 92–98
[2016-09-11] MEDS: Ipratropium 0.02% 0.5 mg/2.5 mL Inhalation Solution NEB SCH ×5 (00:03→21:00)
[2016-09-11] MEDS: Albuterol-Ipratropium 3 mL Inhalation Solution NEB SCH ×7 (00:04→20:30)
[2016-09-11] MEDS: LORazepam 0.5 mg Tablet PO PRN ×4 (01:27→19:28)
[2016-09-11] MEDS: Piperacillin-Tazo 3.375 Gm Inj 3.375 GM in Dextrose 5% Minibag Plus 50 ML IV SCH ×2 (02:47→10:08)
[2016-09-11 03:45] LABS: INR 2.87 ratio
--- NOTE | 2016-09-11 03:47 | NUR ---
Activity Assumed care of patient at 0000. Pt alert and oriented x 3 answering and asking questions appropriately. Pt stated, "Did I do something wrong?" Pt educated on reason for hospital stay and civil celebrant being in the room. "Oh I'm sorry." Pt moving upper extremities with generalized weakness noted. Pt requested a sandwich and ate a small portion due to the need for Bipap. Pt also requested an anxiety and pain medication 8/10 px. Lorazepam and Oxycodone given. Bipap in place and the Pt appears to be asleep at this time resting without s/sx of distress. Care continues.
[2016-09-11] MEDS: Pantoprazole 20 mg ER24 Tablet PO SCH (06:49)
[2016-09-11] MEDS: Sodium Chloride LOK Flush 10 mL Syringe IVFLUSH SCH ×2 (07:52→15:48)
[2016-09-11] MEDS: Diltiazem CD 180 mg ER24 Capsule PO SCH (07:53)
[2016-09-11] MEDS: levoFLOXacin Inj 750 MG in IV Premix 1 EACH IV SCH (08:27)
[2016-09-11] MEDS: Vancomycin Dose per Pharmacist XX SCH (08:28)
[2016-09-11] MEDS ORDERED: Vancomycin Serum Trough XX ONE (09:00)
[2016-09-11] MEDS: LIDOCAINE 1% IM SCH (09:10)
[2016-09-11] MEDS: ERTAPENEM IM SCH (09:10)
--- NOTE | 2016-09-11 10:16 | PCM.PHAPRO ---
Progress Date of Service: Sep 11, 2016 Warfarin dosing Date Sep 01-Sep 02-Sep 03-Sep 04-Sep 05-Aug 06-Sep 07-Sep 08-Sep 09-Sep 10-Sep 11 -Sep INR 1.78 2.41 3.71 2.73 1.95 1.37 1.37 1.35 1.57 1.97 2.56 2.87 INR change 0.63 1.3 -0.98 -0.78 -0.58 -0.02 0.22 0.4 0.59 0.31 Warf Dose 5 mg 2.5 mg hold 1 mg 2.5 mg 5 mg 5 mg 10 mg 10 mg 8 mg 2mg 2mg Sanjay Cage Sep 11, 2016 10:16
--- NOTE | 2016-09-11 10:46 | NUR ---
Social Work: Continued d/c planning Data: Pt is on day 7 of hospitalization. EMR reviewed, pt discussed in multidisciplinary rounds. MD states pt is not medically stable for discharge likely for 2-3 more days. MD states that he will discuss SNF with pt again in relation to some other nursing needs, D[facility]ISER will follow up with MD and pt if needed regarding pt possibly changing their mind regarding SNF. D[facility]ER continues to move forward with information for home IVABX for this pt to fully understand options. Referral previously sent to [facility] for home IVABX. DOUGH RAISER or UR specialist will follow up with MD benefit for home infusion on Monday. D[facility]ISER will continue to follow. Assessment:Pt who will need IV abx. Plan: Pt to discharge home when medically stable via POV. Pt declining SNF and MOC for IV abx. MD to talk with pt regarding SNF and other nursing needs along with IVABX. DOUGH RAISER will follow up regarding SNF if pt changes their mind. Pt is agreeable to Home Infusion, SW previously made referral to [facility]. DOUGH RAISER or UR specialist will follow up with MD benefit for home infusion on Monday. D[facility] RAISER will continue to follow. NATALIE Cabrera
--- NOTE | 2016-09-11 12:41 | PCM.PNMED ---
Subjective Date of Service Sep 11, 2016 Subjective He states he is doing well at this point denies any pain. He also denies shortness of breath and does not remember what happened last night. He is not having any diarrhea. He denies any abdominal pain. With long discussion about residential facility discharge and again he adamantly refuses this and will be discharged back to his house. Overnight events were notable for confusion leading to a blood gas with PCO2 of 62 and a pH of 7.2. He was transferred to second floor and placed on BiPAP overnight and only tolerated this for several hours. He denies confusion currently. Exam Vital Signs Vital Sign - Last Date Time Temp Pulse Resp B/P Pulse Ox O2 Delivery O2 Flow Rate FiO2 09/11/16 12:00 37.0 93 18 101/65 98 Nasal Cannula 2.00 09/11/16 05:08 30 Intake and Output 09/10/16 09/10/16 09/11/16 Cumulative From/Thru 15:00 23:00 07:00 08/31/16 15:43 - 09/11/16 06:44 Intake Total 636 ml 580 ml 74090 ml Output Total 60 ml 20 ml 9030 ml Balance 576 ml 560 ml 3815 ml Intake Oral 636 ml 100 ml 41554 ml IV Total 480 ml 1382 ml Output Urine Total 8950 ml Stool Total 60 ml 60 ml Drainage Total 20 ml 20 ml # Voids 2 5 # Bowel Movements 13 Exam Alert and oriented to person and place. He thinks it is 1998. No distress. Fluent speech Anicteric sclera. Lungs are clear with normal rate and effort Heart is regular without murmur gallop or rub Abdomen soft nontender, flat Extremities are free of edema. Skin is free of rash or lesions. IVs and Medications Medications Reviewed: Medications were reviewed in detail Lab and Diagnostics Result Diagram: 09/10/16 1710 09/11/16 0300 X-Rays, CTs and MRIs CT CHEST WITHOUT CONTRAST IMPRESSION: Small to moderate bilateral pleural effusions with adjacent atelectasis. Additional patchy consolidation in the left lung base possibly pneumonia or aspiration. Please correlate clinically. Mild cardiomegaly. Circumferential lower chest wall edema, possibly third spacing/anasarca. Please correlate clinically. Dictated by: Rizwan Orta M.D. on 08/31/2016 at 18:13 X-RAY CHEST ONE VIEW, PORTABLE IMPRESSION: The bibasilar pneumonia, left greater than right, possible mild or early pneumonia right upper lobe. 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 Dictated by: William Baker M.D. on 08/31/2016 at 16:23 PROCEDURE: X-RAY CHEST, TWO VIEWS ([id number]) INDICATIONS: hypoxia TECHNIQUE: 2 views of the chest were acquired. COMPARISON: None. FINDINGS: Surgical changes and devices: None. Lungs and pleura: No pleural effusions or pneumothorax. Lungs are abnormal with retrocardiac left lower lobe pneumonia what appears to be mild scarring over the right upper lobe. Mediastinum: Mediastinal contours are normal. Heart size is normal. Bones and chest wall: No suspicious bony abnormalities. Soft tissues appear unremarkable. IMPRESSION: Retrocardiac left lower lobe pneumonia, while mild right upper lobe scarring. Dictated by: William Baker M.D. on 09/10/2016 at 17:23 Approved by: William Baker M.D. on 09/10/2016 at 17:23 Cardiac Echo Impressions Interpretation Summary Left ventricular systolic function is normal without focal wall motion abnormalities. The ejection fraction is estimated to be 60-65%. LVEF has not changed since priro study. Left ventricular wall thickness is mild-moderately increased. The right ventricle is at the upper limits of normal in size. The right ventricular systolic function is normal. Right ventricular systolic pressure is estimated to be 20 mmHg plus the clinically estimated CVP which cannot be estimated on this exam. The left atrium is severely dilated. The right atrium is severely dilated. There is mild mitral regurgitation. There is no other significant valvular heart disease. The aortic root is mildly dilated. The ascending aorta is mildly enlarged. The aortic arch is mildly enlarged. E/E' med: 15.1 Assessment & Plan #. ESBL proteus UTI, present on admission. Active and improving. - No clinical symptoms aside from lower extremity weakness. He has history of relatively asymptomatic infections in the past. - Ertapenem initiated on 09/02/16, will continue through August 15. 1G Q24H. - Infectious disease consult. Has been completed by Dr. Summers. #. Chronic Atrial fibrillation with acute rapid ventricular response, present on admission, improved. Cause of escape from rate control is unclear. Possibly related to worsened congestive heart failure or urinary infection. - Telemetry monitoring. -He is currently rate controlled. Continue diltiazem at current dose. Continue warfarin. #. Acute on chronic anxiety, History of PTSD and depression. Active and stable. Patient feels significantly anxious and claustrophobic. Processes limited trust with care providers at [facility]. Will leave the door open. We do not have accurate medication records and [facility] daily lorazepam. - Lorazepam 1 mg twice a day - Resume sertraline. #. Acute respiratory failure with hypercarbia (with new retrocardiac pneumonic infiltrate), acute, not present on admission and improving. Patient has been off BiPAP all day and is doing well. Ertapenem should cover this without difficulty. We will discontinue Zosyn and vancomycin. #. Acute on chronic respiratory failure in the setting of COPD and CHF, present on admission, Resolved. Likely secondary to CHF exacerbation. Do not see evidence of pneumonia or COPD exacerbation at this time. Patient is afebrile, has no white count, has a normal calcitonin, has no cough. Patient was given 125 mg of SoluMedrol in emergency department, subsequently discontinued. Moderate sized right sided pleural effusions on CT. Patient reports a recent thoracentesis at [facility] in [place]. Procalcitonin negative. No antibiotic treatment for pneumonia at this time. - Ipratropium every 4 hours while awake, levalbuterol every 2 hours as needed for shortness of breath - Keep O2 saturation between 88 and 92% Acute exacerbation of chronic diastolic congestive heart failure, present on admission, Resolved. Patient has noted orthopnea, exertional dyspnea and lower extremity edema over the last week. BNP is also significantly elevated at 25,000. Unclear if atrial fibrillation with RVR has worsened CHF or vice versa -We will go ahead and check BMP today and will give dose of po Lasix 40 mg daily Recent history of pulmonary embolism, present on admission, active. Patient's INR was subtherapeutic on admission. - Warfarin management per pharmacy. Troponin elevation, present on admission. Troponin elevation likely secondary to demand ischemia from rapid rate. Acute on chronic anemia. not present on admission. Active and stable. Recent GI bleed and surgery at the [facility] within the last 2 mo. Hgb on admit 11.4, 09/02 - 10.1 to 10.3 on repeat. Stool guiac negative. LDH, haptoglobin, and peripheral smear ordered. No evidence of GI blood loss anemia at this time. - Follow clinically Chronic kidney disease stage IV, stable -Appears to be patient's baseline. -Continue to monitor CODE STATUS: Full code Social: [facility], and do not expect a bed to open up this weekend. They are aware of inpatient status. We recommend SNF for strength and IV Ertapenem antibiotics till August 15. He is requesting to go Home on Monday09/12/16, when his friend can give him a ride he continues to decline residential facility. Patient is admitted under inpatient status with expected length of stay greater than 2 midnights due to severity of presenting symptoms, risk of adverse event, and complexity of treatment plan. VTE Prophylaxis: Theraputic Anticoag with Warfarin VTE Mechanical Devices: Venous Foot Pump Resuscitation Status: CPR: Attempt Resuscitation Joel Mckenna MD Sep 11, 2016 12:41
--- NOTE | 2016-09-11 13:53 | NUR ---
Mentation/Resp/Hemodynamics/Activity Patient is a/o x3 this morning upon first assessment, but has been confused since. He has short term memory problems and does not remember what he has been told. Sitter at bedside until around 1400. Patient pulls at lines, but does not try to get OOB. Remains on 2L 02. Lungs decreased t/o and noted a few crackles in the bases. BP stable. UOP adequate, but voids only a small amount at a time. Incontinent x1. Small bm, but minimal ostomy output. Turning patient q 2 hours in bed. Patient does not move himself. Occasionally patient refuses any care at all. Insists on holding his one galvan on a galvan chain and his $100 bill. These belongings have been documented. Offered to place swenson in safe, but patient refused. He is paranoid that staff will take his money. He is holding his money in his hand, in bed now. Continuing to monitor closely.
--- NOTE | 2016-09-11 18:48 | NUR ---
Patient transferred to room 2027. $100 bill and house galvan is still in patient's hand upon transfer.
[2016-09-12] VITALS (8 sets, daily range): BP systolic 100–127; BP diastolic 63–85; PULSE 87–113; RESP 16–20; O2SAT 90–95
[2016-09-12] MEDS: Albuterol-Ipratropium 3 mL Inhalation Solution NEB SCH ×5 (00:30→19:54)
[2016-09-12] MEDS: Sodium Chloride LOK Flush 10 mL Syringe IVFLUSH SCH ×3 (00:47→16:27)
--- NOTE | 2016-09-12 03:09 | NUR ---
MENTATION/SLEEP/BM Pt was confused throughout the night, but pleasant otherwise. Pt slept extremely well most of the night with a few confused episodes of shouting for help instead of using call light. Pt bedrest, Q2 turns, tolerated well. Pt incontin. in brief, semi-formed stools. Ostomy with low output, creamy yellow.
[2016-09-12 03:50] LABS: INR 2.96 ratio
[2016-09-12] MEDS: Pantoprazole 20 mg ER24 Tablet PO SCH (05:05)
[2016-09-12] MEDS: Ipratropium 0.02% 0.5 mg/2.5 mL Inhalation Solution NEB SCH ×4 (05:05→19:54)
[2016-09-12] MEDS: Diltiazem CD 180 mg ER24 Capsule PO SCH (09:22)
[2016-09-12] MEDS: levoFLOXacin Inj 750 MG in IV Premix 1 EACH IV SCH (09:29)
[2016-09-12] MEDS: LORazepam 0.5 mg Tablet PO PRN ×2 (09:53→22:38)
[2016-09-12] MEDS: Ertapenem Inj 1,000 MG in 0.9% Sodium Chloride 50 ML IV SCH (12:29)
--- NOTE | 2016-09-12 13:11 | PCM.PNMED ---
Subjective Date of Service Sep 12, 2016 Subjective He was a little more confused earlier this morning. He my interview denies pain or confusion but does say that it is 1953. He denies any shortness of breath, cough or pain. He denies any nausea or difficulty with bowel movements or urination. No overnight events. Exam Vital Signs Vital Sign - Last Date Time Temp Pulse Resp B/P Pulse Ox O2 Delivery O2 Flow Rate FiO2 09/12/16 12:06 36.7 113 18 100/63 95 Nasal Cannula 2.00 09/11/16 05:08 30 Intake and Output 09/11/16 09/11/16 09/12/16 Cumulative From/Thru 15:00 23:00 07:00 08/31/16 15:43 - 09/12/16 06:17 Intake Total 472 ml 16486 ml Output Total 1075 ml 88448 ml Balance -603 ml 3212 ml Intake Oral 420 ml 10518 ml IV Total 52 ml 1434 ml Output Urine Total 1075 ml 77099 ml Stool Total 60 ml Drainage Total 20 ml # Voids 1 6 # Bowel Movements 1 14 Exam Alert and oriented to person and place, no distress. Fluent speech Anicteric sclera. Lungs are clear with normal rate and effort Heart is regular without murmur gallop or rub Abdomen soft nontender, flat Extremities are free of edema. Skin is free of rash or lesions. IVs and Medications Medications Reviewed: Medications were reviewed in detail Lab and Diagnostics Result Diagram: 09/10/16 1710 09/12/16 0320 X-Rays, CTs and MRIs CT CHEST WITHOUT CONTRAST IMPRESSION: Small to moderate bilateral pleural effusions with adjacent atelectasis. Additional patchy consolidation in the left lung base possibly pneumonia or aspiration. Please correlate clinically. Mild cardiomegaly. Circumferential lower chest wall edema, possibly third spacing/anasarca. Please correlate clinically. Dictated by: Rizwan Orta M.D. on 08/31/2016 at 18:13 X-RAY CHEST ONE VIEW, PORTABLE IMPRESSION: The bibasilar pneumonia, left greater than right, possible mild or early pneumonia right upper lobe. 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 Dictated by: William Baker M.D. on 08/31/2016 at 16:23 PROCEDURE: X-RAY CHEST, TWO VIEWS ([id number]) INDICATIONS: hypoxia TECHNIQUE: 2 views of the chest were acquired. COMPARISON: None. FINDINGS: Surgical changes and devices: None. Lungs and pleura: No pleural effusions or pneumothorax. Lungs are abnormal with retrocardiac left lower lobe pneumonia what appears to be mild scarring over the right upper lobe. Mediastinum: Mediastinal contours are normal. Heart size is normal. Bones and chest wall: No suspicious bony abnormalities. Soft tissues appear unremarkable. IMPRESSION: Retrocardiac left lower lobe pneumonia, while mild right upper lobe scarring. Dictated by: William Baker M.D. on 09/10/2016 at 17:23 Approved by: William Baker M.D. on 09/10/2016 at 17:23 Cardiac Echo Impressions Interpretation Summary Left ventricular systolic function is normal without focal wall motion abnormalities. The ejection fraction is estimated to be 60-65%. LVEF has not changed since priro study. Left ventricular wall thickness is mild-moderately increased. The right ventricle is at the upper limits of normal in size. The right ventricular systolic function is normal. Right ventricular systolic pressure is estimated to be 20 mmHg plus the clinically estimated CVP which cannot be estimated on this exam. The left atrium is severely dilated. The right atrium is severely dilated. There is mild mitral regurgitation. There is no other significant valvular heart disease. The aortic root is mildly dilated. The ascending aorta is mildly enlarged. The aortic arch is mildly enlarged. E/E' med: 15.1 Assessment & Plan #. ESBL proteus UTI, present on admission. Active and improving. - No clinical symptoms aside from lower extremity weakness. He has history of relatively asymptomatic infections in the past. - Ertapenem initiated on 09/02/16, will continue through August 15. 1G Q24H. - Infectious disease consult. Has been completed by Dr. Summers. There is one additional culture revealing and ertapenem resistant species. Infectious disease is aware. #. Chronic Atrial fibrillation with acute rapid ventricular response, present on admission, improved and now rate controlled.. Cause of escape from rate control is unclear. Possibly related to worsened congestive heart failure or urinary infection. - Telemetry monitoring. -He is currently rate controlled. Continue diltiazem at current dose. Continue warfarin. #. Acute on chronic anxiety, History of PTSD and depression. Active and stable. Patient feels significantly anxious and claustrophobic. Processes limited trust with care providers at [facility]. Will leave the door open. We do not have accurate medication records and he claims his [place] doctors give him twice daily lorazepam. - Lorazepam 1 mg twice a day - Resume sertraline. #. Acute respiratory failure with hypercarbia (with new retrocardiac pneumonic infiltrate), acute, not present on admission and improving. The patient was confused this morning but declined a blood gas or BiPAP. We will continue to follow clinically. Ertapenem should cover this without difficulty. We will discontinue Zosyn and vancomycin. #. Acute on chronic respiratory failure with hypercarbia and hypoxia, present on admission, Resolved. Likely secondary to CHF exacerbation. Do not see evidence of pneumonia or COPD exacerbation at this time. Patient is afebrile, has no white count, has a normal calcitonin, has no cough. Patient was given 125 mg of SoluMedrol in emergency department, subsequently discontinued. Moderate sized right sided pleural effusions on CT. Patient reports a recent thoracentesis at [facility] in [place]. Procalcitonin negative. No antibiotic treatment for pneumonia at this time. - Ipratropium every 4 hours while awake, levalbuterol every 2 hours as needed for shortness of breath - Keep O2 saturation between 88 and 92% He did have recurrent hypercarbia 2 nights ago and required BiPAP but this appears improved. He is somewhat confused today but declines ABG or BiPAP. We will continue to follow clinically. Acute exacerbation of chronic diastolic congestive heart failure, present on admission, Resolved. Patient has noted orthopnea, exertional dyspnea and lower extremity edema over the last week. BNP is also significantly elevated at 25,000. Unclear if atrial fibrillation with RVR has worsened CHF or vice versa -We will go ahead and check BMP today and will give dose of po Lasix 40 mg daily Recent history of pulmonary embolism, present on admission, active. Patient's INR was subtherapeutic on admission. - Warfarin management per pharmacy. Troponin elevation, present on admission. Resolved. Troponin elevation likely secondary to demand ischemia from rapid rate. No further workup. Acute on chronic anemia. not present on admission. Active and stable. Recent GI bleed and surgery at the [place] within the last 2 mo. Hgb on admit 11.4, - 10.1 to 10.3 on repeat. Stool guiac negative. LDH, haptoglobin, and peripheral smear ordered. No evidence of GI blood loss anemia at this time. - Follow clinically Chronic kidney disease stage IV, POA and stable -Appears to be patient's baseline. -Continue to monitor CODE STATUS: Full code Social: [facility], and do not expect a bed to open up this weekend. They are aware of inpatient status. We recommend SNF for strength and IV Ertapenem antibiotics till August 15. He is requesting to go Home on Monday09/12/16, when his friend can give him a ride he continues to decline [facility] facility. Patient is admitted under inpatient status with expected length of stay greater than 2 midnights due to severity of presenting symptoms, risk of adverse event, and complexity of treatment plan. VTE Prophylaxis: Theraputic Anticoag with Warfarin VTE Mechanical Devices: Venous Foot Pump Resuscitation Status: CPR: Attempt Resuscitation Joel Mckenna MD Sep 12, 2016 13:11
--- NOTE | 2016-09-12 14:18 | PCM.PHAPRO ---
Progress Date of Service: Sep 12, 2016 Warfarin dosing Date Sep 01-Sep 02-Sep 03-Sep 04-Sep 05-Aug 06-Sep 07-Sep 08-Sep 09-Sep 10-Sep 11 -Sep 12-Sep INR 1.78 2.41 3.71 2.73 1.95 1.37 1.37 1.35 1.57 1.97 2.56 2.87 2.96 INR change 0.63 1.3 -0.98 -0.78 -0.58 -0.02 0.22 0.4 0.59 0.31 0.09 Warf Dose 5mg 2.5mg hold 1mg 2.5mg 5mg 5mg 10mg 10mg 8mg 2mg 2mg 2mg Sanjay Cage Sep 12, 2016 14:18
--- NOTE | 2016-09-12 14:20 | NUR ---
NUTRITION FOLLOW-UP: ASSESS: 76 YO male admitted with shortness of breath. He is on a general diet with variable PO intake, mostly good. His wt has been stable throughout hospital stay. Pt with some confusion per notes. PMHx: PTSD, anxiety and depression after being involved in combat in [place], bilateral cataracts, gastric bypass surgery, BPH, pyelonephritis, stage IV renal disease, RSV, enterocutaneous fistula requiring TPN. DIET: General with fluid restriction. PO intake refusal-100% trays. LABS: Reviewed. Cr 1.69, Ca 8.1 MEDICATIONS: Reviewed. Lasix, Coumadin, Colace GI: 1 BM 09/12. SKIN: No issues reported. ANTHROPOMETRICS: Current Wt: 79.9 kg, BMI: 34.4 kg/m2. Admit weight: 78.1 kg ESTIMATED NEEDS Calories: 2700-2956 kcal/day (22-25 kcal/kg) Protein: 75-95 g/day (1.0-1.2 g/kg) NUTRITION DIAGNOSIS: 1) Inconsistent PO intake related to inability to consume sufficient energy, as evidenced by 0-100% trays, likely due to significant psychological issues.--IMPROVING INTERVENTION: 1) Continue current diet with supplements of PB w/ crackers @ 10 am and yogurt @ 2 pm. MONITOR/EVALUATE: PO intake, wt, labs, GI status, POC, nutrition status. Follow per low nutrition risk guidelines.
--- NOTE | 2016-09-12 16:38 | PROG NOTE ---
[address] [address] PROGRESS NOTE PATIENT: JAYLEN LOPEZ : 1940 MR#: [id number] ADMIT: 08/31/2016 JOB ID: [id number] DATE: 09/12/2016 REASON FOR FOLLOWUP: Complicated urinary tract infection. INTERVAL HISTORY: Over the weekend, the patient has remained relatively stable. He again is very hard to get a history from and is very laconic. He voices no new complaint but says he has some abdominal pain, but where and how much seems very unclear as he basically does not respond to questions, though he is clearly awake. He does voice some consternation at not being able to get out of bed and use a commode or regular bathroom, as he is confined to bed because of weakness. When asked about fevers, chills, sweats, pulmonary complaints, he really does not answer. PHYSICAL EXAMINATION: Reveals a bed-bound gentleman. He has been afebrile since admission and he has now been here almost 10 days. Current temp 36.7, pulse 113, respiratory rate 18, blood pressure 100/63. He is in no acute distress but it is very difficult to read his situation as he seems to have one facial expression and not usually answer questions. His eyes are without conjunctivitis. His oral cavity is negative. His lungs without significant change. His abdomen is basically nontender today. He has a right upper quadrant ostomy device which is draining some thin beige-colored fluid which has the appearance potentially of being succus. there is no real tenderness or inflammation around the ostomy device. Remainder of the abdomen is not especially tender. There is no evidence of cellulitis. LABORATORIES: Include a white count 6100. That was two days ago. Creatinine 1.69 which is slightly increased. BNP 11,000. Micro studies include negative viral PCR panel from the 6th, a negative stool PCR panel from the 5th, an abdominal wound swab which is growing a true CRE Klebsiella and this organism is resistant to all antibiotics except Bactrim. Note that we also tested this organism for the new antibiotic combination ceftazidime/avibactam, and it was completely resistant, so this is truly a "super bug." It is also notable that his urine grew Proteus, which was an ESBL. IMAGING: Chest x-ray from the showed retrocardiac, possible left-sided infiltrate. An abdominal CT scan from the showed enterocutaneous fistula without abscess or obstruction. IMPRESSION: This is an extremely difficult case of a gentleman with probable complicated extended-spectrum beta-lactamase Proteus urinary tract infection which we are treating through . Additionally he has had an abdominal wall or wound culture that was done September 06. It is unclear to me where or how this culture was obtained, and the physician who obtained it is not mentioned in the chart, so I am not certain as to why this was done, but it is growing a CRE. I see no evidence of infection of the anterior abdominal wall and wonder if this was material from the enterocutaneous fistula or from the ostomy itself that was sent for culture. The patient has multiple additional problems including respiratory issues, posttraumatic stress disorder, depression and congestive heart failure. At this point, I think we should treat the extended-spectrum beta-lactamase organism isolated from urinary tract through September 15 and then stop therapy. I would not treat this CRE found in the abdomen as I am not sure it is causing any problem at this time and treatment would involve relatively high doses of Bactrim, as we have absolutely no other options, and I would be afraid of producing resistance to our last available antibiotic without clear-cut evidence or actually treating something. RECOMMENDATIONS: 1. Continue with the ertapenem through . 2. I would ignore the CRE organism at this point. 3. Strict isolation is indicated here and I have discussed this with Infection Control. [facility] HOSPITALAren
--- NOTE | 2016-09-12 18:32 | NUR ---
Mentation/Respirations Pt. at times becomes confused and states he does not where he is at. He is alert to self and day but not place or time. Pt. states "I want to go home get me outta here. Ill give you gas money". Pt. also at one time stated he wanted to go back to room 2027 which I reassured him that he was in room 2027 [facility]. PT. did not want to believe me. Pt. also refused to wear his CPAP machine this afternoon after RT tried to convince him to wear it because it would benefit him. Pt. still refused. Pt.a this time is using 1L NC SpO2 at 93%. Will continue to monitor.
[2016-09-13] VITALS (9 sets, daily range): BP systolic 111–129; BP diastolic 75–92; PULSE 79–119; RESP 16–20; O2SAT 92–96
[2016-09-13] MEDS: Sodium Chloride LOK Flush 10 mL Syringe IVFLUSH SCH ×4 (00:30→20:55)
[2016-09-13] MEDS: Albuterol-Ipratropium 3 mL Inhalation Solution NEB SCH ×3 (00:30→08:32)
[2016-09-13 04:20] LABS: INR 2.15 ratio
[2016-09-13] MEDS: Ipratropium 0.02% 0.5 mg/2.5 mL Inhalation Solution NEB SCH ×2 (06:00→11:00)
--- NOTE | 2016-09-13 06:21 | NUR ---
NOC PT has been awake all night except for maybe 1 hour at best. PT is oriented only to self. HE states over and over that he wants to go to the hospital. PT does not believe this RN and will continue to request to be moved. PT also requesting to speak the "head MD" because he wants someone to sit at his door because he feels isolated. PT was adamant that it was daytime and that we had not fed him. Even though we offered him snacks. He believed he missed breakfast and lunch. PT has been voiding in urinal and is incontinent of stool. He is apologetic for this. Pt on NC sometimes, but will also remove. HR remains in afib in the low 100 range. Asymptomatic. IV heplock in shoulder patent. PT requested ativan and oxycodone at bedtime for abdominal pain. Pain was relieved, but the anxiety was still present. Ostomy bag has small amount of purulent drainage noted. PT reports this is from his gallbladder and this RN could not find info contradicting this. Stool is soft. Emy area and buttocks are excoriated and barrier cream is applied with each hygiene. PT refuses to turn as often as he should. Has been yelling out all night long! PT is [employer]ITT[employer] and very loud and disruptive to other pt's. WIll CTM.
[2016-09-13] MEDS: Pantoprazole 20 mg ER24 Tablet PO SCH (06:39)
[2016-09-13] MEDS: Diltiazem CD 180 mg ER24 Capsule PO SCH (08:30)
[2016-09-13] MEDS: levoFLOXacin Inj 750 MG in IV Premix 1 EACH IV SCH (08:39)
--- NOTE | 2016-09-13 11:14 | PCM.PHAPRO ---
Progress Date of Service: Sep 13, 2016 Warfarin dosing Date Sep 01-Sep 02-Sep 03-Sep 04-Sep 05-Aug 06-Sep 07-Sep 08-Sep 09-Sep 10-Sep 11 -Sep 12-Sep 13-Sep INR 1.78 2.41 3.71 2.73 1.95 1.37 1.37 1.35 1.57 1.97 2.56 2.87 2.96 2.15 INR change 0.63 1.3 -0.98 -0.78 -0.58 -0.02 0.22 0.4 0.59 0.31 0.09 -0.81 Warf Dose 5mg 2.5mg hold 1mg 2.5mg 5mg 5mg 10mg 10mg 8mg 2mg 2mg 2mg 5mg Sanjay Cage Sep 13, 2016 11:14
--- NOTE | 2016-09-13 11:56 | PROG NOTE ---
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 INTERVAL HISTORY: The patient tells me that he has diffuse ongoing abdominal pain, which never stops and apparently does not change very much. He denies any fevers or chills. He denies shortness of breath. He states that his anxiety is somewhat worse than it has been in recent days and he wonders if he could have medicines on standby for anxiety. The patient's overall mental capacity is suspect to me. He tells me that he has not had any recent visitors, but about 10 minutes before my visit a woman in a wheelchair entered and spoke to him at some length. When I asked him if a woman in a wheelchair had been in his room this morning. He said no only a doctor, and he has not been visited by any doctors today at all according to the nursing staff. PHYSICAL EXAMINATION: Reveals a somewhat withdrawn, but more conversational gentleman in that the past couple days he has been basically just mute and today, he did answer some questions and interact a bit. He is consistently afebrile. Temp 36.6, his pulse 90 to 105, respiratory rate 18, blood pressure 113/75. He is in no acute distress though difficult to ascertain as he is not terribly interactive. Lungs relatively clear anteriorly. Cardiac tones without new murmur. Abdomen has the ostomy in the right upper abdomen area. Around it appears uninflamed and uninfected. There is diffuse mild abdominal tenderness today to palpation. No skin rash is noted. LABORATORIES: Include a white count of 6500, last done three days ago. We do have a creatinine from today and it is 1.74. AST is 110, ALT 46, albumin 2.7. Urine white cells recall was packed when he came in the hospital, it has not been repeated. Urine did grow an ESBL Proteus which we are treating with ertapenem. We have been concerned about the abdominal culture from September 06 which is growing CRE Klebsiella. I spoke to the physician who ordered this and this was done just in passing as she was asked by a nurse what to do with the swab the nurse had taken from a small area that was draining around the ostomy appliance. The nurse wondered if she could culture it and the physician then ordered a culture, but there was no real hint of any infection or change in his status on September 06 when this culture was done. That culture subsequently grew CRE Klebsiella which was resistant to all antibiotics including ceftazidime, avibactam except Bactrim to which it remains fully susceptible. IMPRESSION: We are treating what we believe to be an extended spectrum beta lactamases Proteus complicated urinary tract infection and that treatment will conclude the morning of September 15. I do not see any evidence of ongoing abdominal wall or abdominal infection related to this carbapenem resistant Enterobacteriaceae Klebsiella and suspect that this is simply a reflection of bowel or skin colonization. RECOMMENDATIONS: 1. Will continue with ertapenem through September 15 in the a.m. 2. The CRE organism does not require any treatment at this point as I think he is just colonized and will save Bactrim in reserve should we have to treat it at some point in the future. 3. I have ordered disposable trays to facilitate keeping this patient in strict isolation. 4. Given that we only have 48 hours or so to go on antibiotics I think ID will go ahead and sign off at this point, as there is no active issues. I would continue with the ertapenem through the morning of the . 5. I note that the patient is also receiving levofloxacin and it is extremely unclear to me why this was initiated. I suspect this may have been triggered by a chest x-ray done on the , though it is uncertain to me why this was initiated. Given his lack of respiratory complaint or symptom and his overall improving clinical situation, I would go ahead and discontinue this on the as well, and I have written for that. 6. ID will go ahead and sign off at this time. Note that this case was discussed with infection control practitioner as well as the nursing staff today.
[2016-09-13] MEDS: Ertapenem Inj 1,000 MG in 0.9% Sodium Chloride 50 ML IV SCH (12:19)
--- NOTE | 2016-09-13 12:34 | PCM.PNMED ---
Subjective Date of Service Sep 13, 2016 Subjective Patient continues to be very difficult. He has periods of agitation. Today he states he does not understand what is going on is reminded that he is being treated for a resistant organism in his urine. The patient continues to Brennan. He Does Have Diffuse Chronic Abdominal Pain but Denies Any Cough or Shortness of Breath. No Headache. He Does Not Believe He Is Confused. No Overnight Events Noted Exam Vital Signs Vital Sign - Last Date Time Temp Pulse Resp B/P Pulse Ox O2 Delivery O2 Flow Rate FiO2 09/13/16 10:53 106 09/13/16 08:32 20 96 Nasal Cannula 2.50 09/13/16 08:20 36.6 113/75 09/11/16 05:08 30 Intake and Output 09/12/16 09/12/16 09/13/16 Cumulative From/Thru 15:00 23:00 07:00 08/31/16 15:43 - 09/13/16 03:36 Intake Total 200 ml 400 ml 23534 ml Output Total 400 ml 525 ml 300 ml 74823 ml Balance -200 ml -125 ml -300 ml 2587 ml Intake Oral 200 ml 400 ml 59234 ml IV Total 1434 ml Output Urine Total 400 ml 525 ml 300 ml 34559 ml Stool Total 60 ml Drainage Total 20 ml # Voids 3 1 10 # Bowel Movements 1 1 16 Exam Alert and oriented -3, no distress. Fluent speech Anicteric sclera. Lungs are clear with normal rate and effort Heart is regular without murmur gallop or rub Abdomen soft nontender, flat. Ostomy in place. Extremities are free of edema. Skin is free of rash or lesions. IVs and Medications Medications Reviewed: Medications were reviewed in detail Lab and Diagnostics Result Diagram: 09/10/16 1710 09/13/16 0335 X-Rays, CTs and MRIs CT CHEST WITHOUT CONTRAST IMPRESSION: Small to moderate bilateral pleural effusions with adjacent atelectasis. Additional patchy consolidation in the left lung base possibly pneumonia or aspiration. Please correlate clinically. Mild cardiomegaly. Circumferential lower chest wall edema, possibly third spacing/anasarca. Please correlate clinically. Dictated by: Rizwan Orta M.D. on 08/31/2016 at 18:13 X-RAY CHEST ONE VIEW, PORTABLE IMPRESSION: The bibasilar pneumonia, left greater than right, possible mild or early pneumonia right upper lobe. 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 Dictated by: William Baker M.D. on 08/31/2016 at 16:23 PROCEDURE: X-RAY CHEST, TWO VIEWS ([id number]) INDICATIONS: hypoxia TECHNIQUE: 2 views of the chest were acquired. COMPARISON: None. FINDINGS: Surgical changes and devices: None. Lungs and pleura: No pleural effusions or pneumothorax. Lungs are abnormal with retrocardiac left lower lobe pneumonia what appears to be mild scarring over the right upper lobe. Mediastinum: Mediastinal contours are normal. Heart size is normal. Bones and chest wall: No suspicious bony abnormalities. Soft tissues appear unremarkable. IMPRESSION: Retrocardiac left lower lobe pneumonia, while mild right upper lobe scarring. Dictated by: William Baker M.D. on 09/10/2016 at 17:23 Approved by: William Baker M.D. on 09/10/2016 at 17:23 Cardiac Echo Impressions Interpretation Summary Left ventricular systolic function is normal without focal wall motion abnormalities. The ejection fraction is estimated to be 60-65%. LVEF has not changed since priro study. Left ventricular wall thickness is mild-moderately increased. The right ventricle is at the upper limits of normal in size. The right ventricular systolic function is normal. Right ventricular systolic pressure is estimated to be 20 mmHg plus the clinically estimated CVP which cannot be estimated on this exam. The left atrium is severely dilated. The right atrium is severely dilated. There is mild mitral regurgitation. There is no other significant valvular heart disease. The aortic root is mildly dilated. The ascending aorta is mildly enlarged. The aortic arch is mildly enlarged. E/E' med: 15.1 Assessment & Plan #. ESBL proteus UTI, present on admission. Active and improving. - No clinical symptoms aside from lower extremity weakness. He has history of relatively asymptomatic infections in the past. - Ertapenem initiated on 09/02/16, will continue through August 15. 1G Q24H. - Infectious disease consult. Has been completed by Dr. Summers. There is one additional culture revealing and ertapenem resistant species. Infectious disease is aware. Continue Anaprox September 15. #. Chronic Atrial fibrillation with acute rapid ventricular response, present on admission, improved and now rate controlled.. Cause of escape from rate control is unclear. Possibly related to worsened congestive heart failure or urinary infection. - Telemetry monitoring. -He is currently rate controlled. Continue diltiazem at current dose. Continue warfarin. No further changes. #. Acute on chronic anxiety, History of PTSD and depression. Active and stable. Patient feels significantly anxious and claustrophobic. Processes limited trust with care providers at [facility]. Will leave the door open. We do not have accurate medication records and he claims [facility] him twice daily lorazepam. - Lorazepam 1 mg twice a day - Resume sertraline. No further changes. #. Acute respiratory failure with hypercarbia (with new retrocardiac pneumonic infiltrate), acute, not present on admission and his all. The patient was confused this morning but declined a blood gas or BiPAP. We will continue to follow clinically. Ertapenem should cover this without difficulty. We will discontinue Zosyn and vancomycin. The patient continues to decline AT this point we will remove the BiPAP. We will also simplify any nebulizer treatments as when necessary every 6 hours. #. Acute on chronic respiratory failure with hypercarbia and hypoxia, present on admission, Resolved. Likely secondary to CHF exacerbation. Do not see evidence of pneumonia or COPD exacerbation at this time. Patient is afebrile, has no white count, has a normal calcitonin, has no cough. Patient was given 125 mg of SoluMedrol in emergency department, subsequently discontinued. Moderate sized right sided pleural effusions on CT. Patient reports a recent thoracentesis at [facility] in [place]. Procalcitonin negative. No antibiotic treatment for pneumonia at this time. - Ipratropium every 4 hours while awake, levalbuterol every 2 hours as needed for shortness of breath - Keep O2 saturation between 88 and 92% He did have recurrent hypercarbia 2 nights ago and required BiPAP but this appears improved. He is somewhat confused today but declines ABG or BiPAP. We will continue to follow clinically. Acute exacerbation of chronic diastolic congestive heart failure, present on admission, Resolved. Patient has noted orthopnea, exertional dyspnea and lower extremity edema over the last week. BNP is also significantly elevated at 25,000. Unclear if atrial fibrillation with RVR has worsened CHF or vice versa -We will go ahead and check BMP today and will give dose of po Lasix 40 mg daily Recent history of pulmonary embolism, present on admission, active. Patient's INR was subtherapeutic on admission. - Warfarin management per pharmacy. This is therapeutic, no change in current therapy. Troponin elevation, present on admission. Resolved. Troponin elevation likely secondary to demand ischemia from rapid rate. No further workup. Acute on chronic anemia. not present on admission. Active and stable. Recent GI bleed and surgery at the [facility] within the last 2 mo. Hgb on admit 11.4, - 10.1 to 10.3 on repeat. Stool guiac negative. LDH, haptoglobin, and peripheral smear ordered. No evidence of GI blood loss anemia at this time. - Follow clinically Chronic kidney disease stage IV, POA and stable -Appears to be patient's baseline. -Continue to monitor CODE STATUS: Full code Social: Spoke with DC. They have no available beds, and do not expect a bed to open up this weekend. They are aware of inpatient status. We recommend SNF for strength and IV Ertapenem antibiotics till August 15. He is requesting to go Home on Monday09/12/16, when his friend can give him a ride he continues to decline longterm facility. Patient is admitted under inpatient status with expected length of stay greater than 2 midnights due to severity of presenting symptoms, risk of adverse event, and complexity of treatment plan. Discharge continues to be quite difficult. Plan on keeping him through September 15 for IV antibiotics and then we will possibly attempt to send him home depending on his mental status and general gait stability VTE Prophylaxis: Theraputic Anticoag with Warfarin VTE Mechanical Devices: Intermittant Pneumatic CD Resuscitation Status: CPR: Attempt Resuscitation Joel Mckenna MD Sep 13, 2016 12:34
[2016-09-13] MEDS: LORazepam 0.5 mg Tablet PO PRN (13:52)
--- NOTE | 2016-09-13 18:40 | NUR ---
Mentation Pt is alert and oriented x3. Pt has been forgetful and at times confused during shift but has been easily reoriented. For majority of shift pt has been compliant with cares and appropriate with using call light to make needs knowm. As of approximately 1700 pt has been displaying increasing confusion. He increasingly does not know where he is or what he is doing in the hospital and when this RN tries to reorient him, he becomes defensive and argumentative. Pt has been using call light and when RN or ALARM INSTALLER enters room he can not respond or remember to what he is in need of. At 1830 pt started yelling our "Nurse, nurse" when this RN entered room he stated that "I'm sorry that I got up on the table", and that "I really enjoy it when the TV guys come in"
[2016-09-13] MEDS: Albuterol 2.5 mg/3 mL Inhalation Solution NEB PRN (19:55)
[2016-09-14 04:26] LABS: INR 1.79 ratio
[2016-09-14] MEDS: Pantoprazole 20 mg ER24 Tablet PO SCH (06:07)
--- NOTE | 2016-09-14 06:37 | NUR ---
Anxiety/Pain/Skin Pt voicing anxiety/SOB at start of shift, treated w/ neb treatment as long as pt could tolerate, O2 sats WNL. Pt given night meds and appeared to sleep comfortably between care interventions the rest of the night. Pt pleasant and cooperative w/ care, A&O though very forgetful and sometimes says things that don't make sense. Pt voices needs appropriately. Pt c/o of abdominal pain early in shift but after HS meds feel asleep and did not wake until next vitals, no c/o pain since then until this morning w/ reassessment. Pt given PRN oxycodone and appears to be sleeping again. Pt had 2 BMs overnight, skin in mike area, especially groin is very red/raw, area cleansed gently w/ barrier wipes and barrier cream used, pt resistant to this at first but allowed nursing to clean him after explaining things thoroughly.
[2016-09-14] MEDS: LORazepam 0.5 mg Tablet PO PRN ×2 (08:57→20:13)
[2016-09-14] MEDS: Sodium Chloride LOK Flush 10 mL Syringe IVFLUSH SCH ×3 (08:58→20:14)
[2016-09-14] MEDS: Diltiazem CD 180 mg ER24 Capsule PO SCH (08:58)
[2016-09-14 09:03] VITALS: BP 123/89; PULSE 112; RESP 14; O2SAT 94
--- NOTE | 2016-09-14 09:16 | PCM.PHAPRO ---
Progress Date of Service: Sep 14, 2016 Warfarin dosing Date Sep 01-Sep 02-Sep 03-Sep 04-Sep 05-Aug 06-Sep 07-Sep 08-Sep 09-Sep 10-Sep 11 -Sep 12-Sep 13-Sep 14-Sep INR 1.78 2.41 3.71 2.73 1.95 1.37 1.37 1.35 1.57 1.97 2.56 2.87 2.96 2.15 1.79 INR change 0.63 1.3 -0.98 -0.78 -0.58 -0.02 0.22 0.4 0.59 0.31 0.09 -0.81 - 0.36 Warf Dose 5mg 2.5mg hold 1mg 2.5mg 5mg 5mg 10mg 10mg 8mg 2mg 2mg 2mg 5mg 5mg Sanjay Cage Sep 14, 2016 09:16
[2016-09-14 10:18] VITALS: PULSE 107
[2016-09-14] MEDS: Ertapenem Inj 1,000 MG in 0.9% Sodium Chloride 50 ML IV SCH (11:59)
--- NOTE | 2016-09-14 12:01 | NUR ---
[facility] and faxed clinicals to [phone], he is reviewing and will be in contact with . Updated DRUG SAFETY PHYSICIAN
[2016-09-14 12:10] VITALS: BP 126/78; PULSE 98; RESP 16; O2SAT 95
--- NOTE | 2016-09-14 14:50 | PCM.PNMED ---
Subjective Date of Service Sep 14, 2016 Subjective Is doing about the same. He did a little bit better physical therapy stood up and walked a couple steps and instructed in place. He denies any chest pain cough or shortness of breath. No abdominal pain. He is somewhat intermittent and is answering of questions today. He did not refuse physical therapy today which is good. No overnight events Exam Vital Signs Vital Sign - Last Date Time Temp Pulse Resp B/P Pulse Ox O2 Delivery O2 Flow Rate FiO2 09/14/16 12:10 37.0 98 16 126/78 95 Room Air 09/13/16 19:56 2.50 09/11/16 05:08 30 Intake and Output 09/13/16 09/13/16 09/14/16 Cumulative From/Thru 15:00 23:00 07:00 08/31/16 15:43 - 09/13/16 20:40 Intake Total 686 ml 636 ml 50663 ml Output Total 800 ml 355 ml 11607 ml Balance -114 ml 281 ml 2754 ml Intake Oral 475 ml 636 ml 96955 ml IV Total 211 ml 1645 ml Output Urine Total 800 ml 325 ml 24855 ml Stool Total 60 ml Drainage Total 30 ml 50 ml # Voids 10 # Bowel Movements 1 1 18 Exam Alert and oriented to self and place. Somewhat withdrawn. Fluent speech but soft. Anicteric sclera. Lungs are clear with normal rate and effort Heart is irregular without murmur gallop or rub Abdomen soft nontender, flat Extremities are free of edema. Skin is free of rash or lesions. IVs and Medications Medications Reviewed: Medications were reviewed in detail Lab and Diagnostics Result Diagram: 09/10/16 1710 09/14/16 0355 X-Rays, CTs and MRIs CT CHEST WITHOUT CONTRAST IMPRESSION: Small to moderate bilateral pleural effusions with adjacent atelectasis. Additional patchy consolidation in the left lung base possibly pneumonia or aspiration. Please correlate clinically. Mild cardiomegaly. Circumferential lower chest wall edema, possibly third spacing/anasarca. Please correlate clinically. Dictated by: Rizwan Orta M.D. on 08/31/2016 at 18:13 X-RAY CHEST ONE VIEW, PORTABLE IMPRESSION: The bibasilar pneumonia, left greater than right, possible mild or early pneumonia right upper lobe. 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 Dictated by: William Baker M.D. on 08/31/2016 at 16:23 PROCEDURE: X-RAY CHEST, TWO VIEWS ([id number]) INDICATIONS: hypoxia TECHNIQUE: 2 views of the chest were acquired. COMPARISON: None. FINDINGS: Surgical changes and devices: None. Lungs and pleura: No pleural effusions or pneumothorax. Lungs are abnormal with retrocardiac left lower lobe pneumonia what appears to be mild scarring over the right upper lobe. Mediastinum: Mediastinal contours are normal. Heart size is normal. Bones and chest wall: No suspicious bony abnormalities. Soft tissues appear unremarkable. IMPRESSION: Retrocardiac left lower lobe pneumonia, while mild right upper lobe scarring. Dictated by: William Baker M.D. on 09/10/2016 at 17:23 Approved by: William Baker M.D. on 09/10/2016 at 17:23 Cardiac Echo Impressions Interpretation Summary Left ventricular systolic function is normal without focal wall motion abnormalities. The ejection fraction is estimated to be 60-65%. LVEF has not changed since priro study. Left ventricular wall thickness is mild-moderately increased. The right ventricle is at the upper limits of normal in size. The right ventricular systolic function is normal. Right ventricular systolic pressure is estimated to be 20 mmHg plus the clinically estimated CVP which cannot be estimated on this exam. The left atrium is severely dilated. The right atrium is severely dilated. There is mild mitral regurgitation. There is no other significant valvular heart disease. The aortic root is mildly dilated. The ascending aorta is mildly enlarged. The aortic arch is mildly enlarged. E/E' med: 15.1 Assessment & Plan #. ESBL proteus UTI, present on admission. Active and improving. - No clinical symptoms aside from lower extremity weakness. He has history of relatively asymptomatic infections in the past. - Ertapenem initiated on 09/02/16, will continue through August 15. 1G Q24H. - Infectious disease consult. Has been completed by Dr. Summers. There is one additional culture revealing and ertapenem resistant species. Infectious disease is aware. Lastl day of antibiotics is September 15. #. Chronic Atrial fibrillation with acute rapid ventricular response, present on admission, improved and now rate controlled. Active and stable. Cause of escape from rate control is unclear. Possibly related to worsened congestive heart failure or urinary infection. - Telemetry monitoring. -He is currently rate controlled. Continue diltiazem at current dose. Continue warfarin. No further changes. #. Acute on chronic anxiety, History of PTSD and depression. Active and stable. Patient feels significantly anxious and claustrophobic. Processes limited trust with care providers at [facility]. Will leave the door open. We do not have accurate medication records and he claims [facility] him twice daily lorazepam. - Lorazepam 1 mg twice a day - Resume sertraline. No further changes. #. Acute respiratory failure with hypercarbia (with new retrocardiac pneumonic infiltrate), acute, not present on admission and his all. The patient was confused this morning but declined a blood gas or BiPAP. We will continue to follow clinically. Ertapenem should cover this without difficulty. We will discontinue Zosyn and vancomycin. The patient continues to decline AT this point we will remove the BiPAP. We will also simplify any nebulizer treatments as when necessary every 6 hours. #. Acute on chronic respiratory failure with hypercarbia and hypoxia, present on admission, Resolved. Likely secondary to CHF exacerbation. Do not see evidence of pneumonia or COPD exacerbation at this time. Patient is afebrile, has no white count, has a normal calcitonin, has no cough. Patient was given 125 mg of SoluMedrol in emergency department, subsequently discontinued. Moderate sized right sided pleural effusions on CT. Patient reports a recent thoracentesis at [facility] in [place]. Procalcitonin negative. No antibiotic treatment for pneumonia at this time. - Ipratropium every 4 hours while awake, levalbuterol every 2 hours as needed for shortness of breath - Keep O2 saturation between 88 and 92% He did have recurrent hypercarbia 2 nights ago and required BiPAP but this appears improved. He is somewhat confused today but declines ABG or BiPAP. We will continue to follow clinically. Acute exacerbation of chronic diastolic congestive heart failure, present on admission, Resolved. Patient has noted orthopnea, exertional dyspnea and lower extremity edema over the last week. BNP is also significantly elevated at 25,000. Unclear if atrial fibrillation with RVR has worsened CHF or vice versa -We will go ahead and check BMP today and will give dose of po Lasix 40 mg daily Recent history of pulmonary embolism, present on admission, active. Patient's INR was subtherapeutic on admission. - Warfarin management per pharmacy. This is therapeutic, no change in current therapy. Troponin elevation, present on admission. Resolved. Troponin elevation likely secondary to demand ischemia from rapid rate. No further workup. Acute on chronic anemia. not present on admission. Active and stable. Recent GI bleed and surgery at the [facility] within the last 2 mo. Hgb on admit 11.4, - 10.1 to 10.3 on repeat. Stool guiac negative. LDH, haptoglobin, and peripheral smear ordered. No evidence of GI blood loss anemia at this time. - Follow clinically Chronic kidney disease stage IV, POA and stable -Appears to be patient's baseline. -Continue to monitor CODE STATUS: Full code Social: Spoke with [facility]. They have no available beds, and do not expect a bed to open up this weekend. They are aware of inpatient status. We recommend SNF for strength and IV Ertapenem antibiotics till August 15. He is requesting to go Home on Monday09/12/16, when his friend can give him a ride he continues to decline snf facility. Patient is admitted under inpatient status with expected length of stay greater than 2 midnights due to severity of presenting symptoms, risk of adverse event, and complexity of treatment plan. The [facility] had a bed today. However the patient only needs 1 more day of antibiotics and this really is his only true medical need. He does continue to be a discharge problem. The [facility] has no additional resources over disposition compared to our current situation. This was discussed at length with the [facility] today. The patient will likely be stable for discharge in several days. He will continue to be a tenuous discharge as he declines snf as well as home health resources. The patient will likely continue to readmit over and over again until his health deteriorates to the point that he is unable to continue to refuse for additional care. VTE Prophylaxis: Theraputic Anticoag with Warfarin VTE Mechanical Devices: Intermittant Pneumatic CD Resuscitation Status: CPR: Attempt Resuscitation Joel Mckenna MD Sep 14, 2016 14:50
--- NOTE | 2016-09-14 15:43 | NUR ---
Social Work: Continued Discharge Planning/Multidisciplinary Rounds D: Pt discussed in am rounds. Pt is not yet medically stable for discharge. Pt has CRE with a course of abx through until tomorrow. The patient's discharge plan remains undetermined at this time. Pt would require skilled rehab/nursing for a safe discharge. During admission pt has adamantly declined skilled rehab stating he would not go to a facility at discharge. Pt has been participating with PT ambulated less than 10 feet and is CGA. Per ID note, pt's mentation/memory is questionable; see ID note for more information. SINGLE CORNER CUTTER met with the patient at bedside and introduced the subject of discharge planning. Pt was very slow to answer SINGLE CORNER CUTTER's questions and initially SINGLE CORNER CUTTER believed pt was having trouble hearing. At baseline pt does have some hearing difficulties however SINGLE CORNER CUTTER has never witnessed his impairment to this extent. SINGLE CORNER CUTTER asked pt if he could hear SINGLE CORNER CUTTER- pt states "Yes, I can hear you, I'm just a really quiet dilip" SINGLE CORNER CUTTER mentioned discharge to SNF as a possible discharge option, uncharacteristically pt quietly states "oh ok that would be fine." Surprised by this response, SINGLE CORNER CUTTER informed the patient that a SNF is a facility like [facility], in which pt had previously stated he would not go to. Pt states "maybe, we'll see" and then told the SINGLE CORNER CUTTER "I'll see you later, thank you for your time and help." It is challenging for SINGLE CORNER CUTTER to determine whether pt's unexpected receptiveness to skilled rehab is due to a lack of hearing/understanding or memory loss. SINGLE CORNER CUTTER will communicate this with attending provider. A: Pt who lives at home, alone. P: Evolving; SINGLE CORNER CUTTER to continue to follow to assess pt's discharge plan and communicating concerns with MD. Safe discharge recommendation still remains for [facility]. NATALIE Matias
[2016-09-14 16:27] VITALS: BP 126/93; PULSE 81; RESP 14; O2SAT 93
--- NOTE | 2016-09-14 17:56 | NUR ---
anxiety/pain/mentation Pt anxious and in chronic pain. Pt forgetful, requests meds frequently and needs reminding of when next dose is available. Makes needs known. No changes in pt's condition this shift. Will cont to monitor.
[2016-09-14 20:11] VITALS: BP 89/59; PULSE 86; RESP 18; O2SAT 96
[2016-09-14 21:45] VITALS: BP 90/59; PULSE 86
[2016-09-15 02:51] VITALS: BP 107/75; PULSE 110; RESP 16; O2SAT 92
[2016-09-15 04:11] LABS: INR 1.93 ratio
--- NOTE | 2016-09-15 04:55 | NUR ---
Some asymptomatic hypotension observed this shift, MAP remained above 80. BP WNL at this time. Anxiety/agitation with cares. Reports 9/10 generalized pain, resolved to pt satisfaction with 10 mg oxycodone x1. Slept off and on this shift. One episode of bowel incontinence.
[2016-09-15] MEDS: Pantoprazole 20 mg ER24 Tablet PO SCH (05:38)
[2016-09-15 08:30] VITALS: BP 106/62; PULSE 68; RESP 18; O2SAT 96
[2016-09-15] MEDS: Diltiazem CD 180 mg ER24 Capsule PO SCH (09:05)
[2016-09-15] MEDS: LORazepam 0.5 mg Tablet PO PRN (09:07)
[2016-09-15] MEDS: Sodium Chloride LOK Flush 10 mL Syringe IVFLUSH SCH ×3 (09:12→22:49)
--- NOTE | 2016-09-15 13:30 | NUR ---
Faxed referral to all local SNF's per POTATO PEELING MACHINE OPERATOR.
--- NOTE | 2016-09-15 15:15 | NUR ---
Mentation/incontinence A&O to self and place. Otherwise quite confused. Continuously mistakes this RN for someone he knew from his past. Constantly asks why he has to be in the hospital and tries to refuse cares. pain meds and ativan given in the afternoon for c/o 1010 headache and "bad" anxiety. DSS held this AM however 3 large loose incontinent brown bowel movements. Also incontinent of urine. Uses the urinal at times. Spills on himself at times. Pt very reluctant to let staff roll him back and forth to clean him. Much encouragement needed.
--- NOTE | 2016-09-15 16:03 | PCM.PNMED ---
Subjective Date of Service Sep 15, 2016 Subjective 76-year-old man with multiple medical problems presented with acute on chronic systolic congestive heart failure, A. fib with RVR, and urinary infection with ESBL. Prolonged hospital course with both physical and psychological disability. He reports feeling terrible today. Seems primarily bothered by frequent diarrhea anytime he tries to eat. Also associated with nausea, possibly vomiting. States he is too weak to get up. States that he is confused and unable to properly express his concerns. No cardiorespiratory complaint. Exam Vital Signs Vital Sign - Last Date Time Temp Pulse Resp B/P Pulse Ox O2 Delivery O2 Flow Rate FiO2 09/15/16 08:30 36.4 68 18 106/62 96 Room Air 09/13/16 19:56 2.50 09/11/16 05:08 30 Intake and Output 09/14/16 09/14/16 09/15/16 Cumulative From/Thru 15:00 23:00 07:00 08/31/16 15:43 - 09/15/16 06:28 Intake Total 200 ml 924 ml 300 ml 89401 ml Output Total 1000 ml 1300 ml 425 ml 06994 ml Balance -800 ml -376 ml -125 ml 1453 ml Intake Oral 200 ml 874 ml 300 ml 65358 ml IV Total 50 ml 1695 ml Output Urine Total 1000 ml 1300 ml 425 ml 43970 ml Stool Total 60 ml Drainage Total 50 ml # Voids 1 1 12 # Bowel Movements 2 2 1 23 Exam General: Dysphoric man, hard of hearing, breathing comfortably HEENT: sclerae anicteric, oral mucosa moist Neck: no apparent JVD, supple Chest: Generally clear to auscultation Cardiac: S1S2, irregular Abdomen: BS normal, non-tender, fecal incontinence Extremities: No pitting edema Neuro: Alert but slow and easily confused, cranial nerves appear symmetric, motor strength and coordination difficult to assess, poor cooperation with exam IVs and Medications Medications Reviewed: Medications were reviewed in detail Lab and Diagnostics Result Diagram: 09/10/16 1710 09/15/16 0325 X-Rays, CTs and MRIs CT CHEST WITHOUT CONTRAST IMPRESSION: Small to moderate bilateral pleural effusions with adjacent atelectasis. Additional patchy consolidation in the left lung base possibly pneumonia or aspiration. Please correlate clinically. Mild cardiomegaly. Circumferential lower chest wall edema, possibly third spacing/anasarca. Please correlate clinically. Dictated by: Rizwan Orta M.D. on 08/31/2016 at 18:13 X-RAY CHEST ONE VIEW, PORTABLE IMPRESSION: The bibasilar pneumonia, left greater than right, possible mild or early pneumonia right upper lobe. 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 Dictated by: William Baker M.D. on 08/31/2016 at 16:23 PROCEDURE: X-RAY CHEST, TWO VIEWS ([id number]) INDICATIONS: hypoxia TECHNIQUE: 2 views of the chest were acquired. COMPARISON: None. FINDINGS: Surgical changes and devices: None. Lungs and pleura: No pleural effusions or pneumothorax. Lungs are abnormal with retrocardiac left lower lobe pneumonia what appears to be mild scarring over the right upper lobe. Mediastinum: Mediastinal contours are normal. Heart size is normal. Bones and chest wall: No suspicious bony abnormalities. Soft tissues appear unremarkable. IMPRESSION: Retrocardiac left lower lobe pneumonia, while mild right upper lobe scarring. Dictated by: William Baker M.D. on 09/10/2016 at 17:23 Approved by: William Baker M.D. on 09/10/2016 at 17:23 Cardiac Echo Impressions Interpretation Summary Left ventricular systolic function is normal without focal wall motion abnormalities. The ejection fraction is estimated to be 60-65%. LVEF has not changed since priro study. Left ventricular wall thickness is mild-moderately increased. The right ventricle is at the upper limits of normal in size. The right ventricular systolic function is normal. Right ventricular systolic pressure is estimated to be 20 mmHg plus the clinically estimated CVP which cannot be estimated on this exam. The left atrium is severely dilated. The right atrium is severely dilated. There is mild mitral regurgitation. There is no other significant valvular heart disease. The aortic root is mildly dilated. The ascending aorta is mildly enlarged. The aortic arch is mildly enlarged. E/E' med: 15.1 Assessment & Plan #. ESBL proteus UTI, present on admission. Active and improving. - No clinical symptoms aside from lower extremity weakness. He has history of relatively asymptomatic infections in the past. - Ertapenem initiated on 09/02/16, course completed on 09/15/16. Now discontinued - Infectious disease consult by Dr. Summers. There is one additional culture revealing ertapenem resistant species. Infectious disease is aware. #. Acute on chronic anxiety, History of PTSD and depression. Active and stable. Patient feels significantly anxious and claustrophobic. Processes limited trust with care providers at [facility]. Will leave the door open. We do not have accurate medication records and he claims [facility] twice daily lorazepam. He seems intermittently somewhat sedated on this regimen - Lorazepam 1 mg twice a day, continue for now if no encephalopathy - Resume sertraline. #. Acute on chronic respiratory failure with hypercarbia and hypoxia, present on admission, Resolved. Likely secondary to CHF exacerbation. Do not see evidence of pneumonia or COPD exacerbation at this time. Patient is afebrile, has no white count, has a normal calcitonin, has no cough. Patient was given 125 mg of SoluMedrol in emergency department, subsequently discontinued. Moderate sized right sided pleural effusions on CT. Patient reports a recent thoracentesis at [facility] in [place]. Procalcitonin negative. No antibiotic treatment for pneumonia at this time. - Ipratropium every 4 hours while awake, levalbuterol every 2 hours as needed for shortness of breath - Keep O2 saturation between 88 and 92% - Check ABG with any worsened encephalopathy to rule out benzodiazepine induced respiratory depression #. Acute exacerbation of chronic diastolic congestive heart failure, present on admission, Resolved. Patient has noted orthopnea, exertional dyspnea and lower extremity edema over the last week. BNP is also significantly elevated at 25,000. Unclear if atrial fibrillation with RVR has worsened CHF or vice versa - Continue po Lasix 40 mg daily Resolving, stable and/or chronic conditions. #. Recent history of pulmonary embolism, present on admission, active. Patient' s INR was subtherapeutic on admission. - Warfarin management per pharmacy. This is therapeutic, no change in current therapy. #. Chronic Atrial fibrillation with acute rapid ventricular response, present on admission, improved and now rate controlled. Active and stable. Cause of escape from rate control is unclear. Possibly related to worsened congestive heart failure or urinary infection. - Telemetry monitoring. - Continue diltiazem at current dose. Continue warfarin. No further changes. #. Troponin elevation, present on admission. Resolved. - Troponin elevation likely secondary to demand ischemia from rapid rate. No further workup. #. Acute on chronic anemia. not present on admission. Active and stable. [facility] Hgb on admit 11.4, - 10.1 to 10.3 on repeat. Stool guiac negative. LDH, haptoglobin, and peripheral smear ordered. No evidence of GI blood loss anemia at this time. - Follow clinically #. Chronic kidney disease stage IV, POA and stable -Appears to be patient's baseline. -Continue to monitor CODE STATUS: Full code Disposition: Anticipate recovery of care and antibiotic-induced diarrhea. Increase physical activity and discharge home, possibly 09/16-. VTE Prophylaxis: Theraputic Anticoag with Warfarin VTE Mechanical Devices: Intermittant Pneumatic CD Resuscitation Status: CPR: Attempt Resuscitation Time spent 35 minutes Rupesh Carolina MD Sep 15, 2016 16:03
[2016-09-15 17:17] VITALS: BP 109/77; PULSE 93; RESP 18; O2SAT 95
--- NOTE | 2016-09-15 17:44 | NUR ---
Social Work: Continued Discharge Planning D: PAVING MACHINE OPERATOR received telephone communication from pt's friend, Darwin Perez, ([phone]). He is concerned about pt's health and his mentation yesterday. He states that yesterday the patient did not recognize him. He is financial and medical DPOA and has provided a notarized copy for the patient's chart. He is not sure what he needs to do in regards to discharge planning and whether the patient is decisional. PAVING MACHINE OPERATOR and the pt's friend met with him at bedside. Pt's mentation is much improved today. He recongized his friend and appears to be alert and oriented x4. Pt provided his friend with authorization to pay his bills while he is an inpatient. PAVING MACHINE OPERATOR introduced the topic of discharge planning. Pt is now adamant that he is not going to discharge to skilled rehab/nursing. The patient states that he will go home and does not wish to speak with PAVING MACHINE OPERATOR any further. Pt's friend is very helpful attempting to help PAVING MACHINE OPERATOR establish rapport with the patient. Pt still states he will not consider SNF discharge. 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 In the future, patient's friend, Darwin, would be a very helpful resource and contact as pt will likely continue to readmit to [facility]. A: Pt who lives at home P: Anticipate pt to discharge home via POV; PAVING MACHINE OPERATOR to continue to follow to assess for discharge needs and coordinate discharge plan with pt and family. NATALIE Matias
[2016-09-15 22:42] VITALS: BP 118/85; PULSE 109; RESP 18; O2SAT 95
[2016-09-16] VITALS (8 sets, daily range): BP systolic 109–118; BP diastolic 74–85; PULSE 80–116; RESP 18–22; O2SAT 92–97
[2016-09-16 05:26] LABS: INR 2.09 ratio
[2016-09-16] MEDS: Diltiazem CD 180 mg ER24 Capsule PO SCH (09:08)
[2016-09-16] MEDS: Pantoprazole 20 mg ER24 Tablet PO SCH (09:09)
[2016-09-16] MEDS: Sodium Chloride LOK Flush 10 mL Syringe IVFLUSH SCH ×2 (09:11→16:49)
[2016-09-16] MEDS: LORazepam 0.5 mg Tablet PO PRN ×3 (10:56→22:53)
--- NOTE | 2016-09-16 12:24 | PCM.PHAPRO ---
Progress Warfarin dosing o/ INR therapeutic a/ Likely steadying up on home dose of 5mg/day p/ Continue 5mg/d and follow. Dick Ramirez Pharm D Sep 16, 2016 12:24
--- NOTE | 2016-09-16 15:23 | NUR ---
Mentation/Stools/Skin Pt A&O X3 today. Less confusion than yesterday. Answers questions appropriately, has not appeared to be confused. Pt was agitated in the morning while nursing was cleaning the pt up but appeared more calm after receiving ativan. So far only 1 loose incontinent stool today. DSS was refused by patient both yesterday and today. Has not spilled urinal on self, has only required one bed change so far today. Emy area and buttocks remain quite red and tender to touch. Lesia applied.
--- NOTE | 2016-09-16 16:37 | PCM.PNMED ---
Subjective Date of Service Sep 16, 2016 Subjective 76-year-old man with multiple medical problems presented with acute on chronic systolic congestive heart failure, A. fib with RVR, and urinary infection with ESBL. Prolonged hospital course with both physical and psychological disability. He seems to have fewer complaints today. Still bothered by diarrhea, which seems to be slowing. He was able to get up to the bathroom but slowly requiring assistance. He is voicing concerns about assistance at home, diarrhea with limited mobility. Friend and caregiver will not be home until Monday. Exam Vital Signs Vital Sign - Last Date Time Temp Pulse Resp B/P Pulse Ox O2 Delivery O2 Flow Rate FiO2 09/16/16 16:04 37.5 80 118/85 94 Room Air 09/16/16 08:59 18 09/13/16 19:56 2.50 09/11/16 05:08 30 Intake and Output 09/15/16 09/15/16 09/16/16 Cumulative From/Thru 15:00 23:00 07:00 08/31/16 15:43 - 09/16/16 05:02 Intake Total 250 ml 83073 ml Output Total 300 ml 64649 ml Balance -50 ml 1403 ml Intake Oral 250 ml 74790 ml IV Total 1695 ml Output Urine Total 300 ml 80816 ml Stool Total 60 ml Drainage Total 50 ml # Voids 12 # Bowel Movements 3 26 Exam General: Dysphoric man but generally alert, breathing comfortably HEENT: sclerae anicteric, oral mucosa moist Neck: no apparent JVD, supple Chest: Generally clear to auscultation Cardiac: S1S2, irregular Abdomen: BS normal, non-tender Extremities: No pitting edema Neuro: Alert hard of hearing, cranial nerves appear symmetric, motor strength diffusely weak Lab and Diagnostics Result Diagram: 09/10/16 1710 09/15/16 0325 X-Rays, CTs and MRIs CT CHEST WITHOUT CONTRAST IMPRESSION: Small to moderate bilateral pleural effusions with adjacent atelectasis. Additional patchy consolidation in the left lung base possibly pneumonia or aspiration. Please correlate clinically. Mild cardiomegaly. Circumferential lower chest wall edema, possibly third spacing/anasarca. Please correlate clinically. Dictated by: Rizwan Orta M.D. on 08/31/2016 at 18:13 X-RAY CHEST ONE VIEW, PORTABLE IMPRESSION: The bibasilar pneumonia, left greater than right, possible mild or early pneumonia right upper lobe. 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 Dictated by: William Baker M.D. on 08/31/2016 at 16:23 PROCEDURE: X-RAY CHEST, TWO VIEWS ([id number]) INDICATIONS: hypoxia TECHNIQUE: 2 views of the chest were acquired. COMPARISON: None. FINDINGS: Surgical changes and devices: None. Lungs and pleura: No pleural effusions or pneumothorax. Lungs are abnormal with retrocardiac left lower lobe pneumonia what appears to be mild scarring over the right upper lobe. Mediastinum: Mediastinal contours are normal. Heart size is normal. Bones and chest wall: No suspicious bony abnormalities. Soft tissues appear unremarkable. IMPRESSION: Retrocardiac left lower lobe pneumonia, while mild right upper lobe scarring. Dictated by: William Baker M.D. on 09/10/2016 at 17:23 Approved by: William aBker M.D. on 09/10/2016 at 17:23 Cardiac Echo Impressions Interpretation Summary Left ventricular systolic function is normal without focal wall motion abnormalities. The ejection fraction is estimated to be 60-65%. LVEF has not changed since priro study. Left ventricular wall thickness is mild-moderately increased. The right ventricle is at the upper limits of normal in size. The right ventricular systolic function is normal. Right ventricular systolic pressure is estimated to be 20 mmHg plus the clinically estimated CVP which cannot be estimated on this exam. The left atrium is severely dilated. The right atrium is severely dilated. There is mild mitral regurgitation. There is no other significant valvular heart disease. The aortic root is mildly dilated. The ascending aorta is mildly enlarged. The aortic arch is mildly enlarged. E/E' med: 15.1 Assessment & Plan #. ESBL proteus UTI, present on admission. Active and improving. - No clinical symptoms aside from lower extremity weakness. He has history of relatively asymptomatic infections in the past. - Ertapenem initiated on 09/02/16, course completed on 09/15/16. Now discontinued - Infectious disease consult by Dr. Summers. There is one additional culture revealing ertapenem resistant species. Infectious disease is aware. #. Acute on chronic anxiety, History of PTSD and depression. Active and stable. Patient feels significantly anxious and claustrophobic. Processes limited trust with care providers at [facility]. Will leave the door open. We do not have accurate medication records and [facility]ep[facility]. He seems intermittently somewhat sedated on this regimen - Lorazepam 1 mg twice a day, continue for now if no encephalopathy - Resume sertraline. #. Acute on chronic respiratory failure with hypercarbia and hypoxia, present on admission, Resolved. Likely secondary to CHF exacerbation. Do not see evidence of pneumonia or COPD exacerbation at this time. Patient is afebrile, has no white count, has a normal calcitonin, has no cough. Patient was given 125 mg of SoluMedrol in emergency department, subsequently discontinued. Moderate sized right sided pleural effusions on CT. Patient reports a recent thoracentesis at [facility] in [place]. Procalcitonin negative. No antibiotic treatment for pneumonia at this time. - Ipratropium every 4 hours while awake, levalbuterol every 2 hours as needed for shortness of breath - Keep O2 saturation between 88 and 92% - Check ABG with any worsened encephalopathy to rule out benzodiazepine induced respiratory depression #. Acute exacerbation of chronic diastolic congestive heart failure, present on admission, Resolved. Patient has noted orthopnea, exertional dyspnea and lower extremity edema over the last week. BNP is also significantly elevated at 25,000. Unclear if atrial fibrillation with RVR has worsened CHF or vice versa - Continue po Lasix 40 mg daily #. Diarrhea, not present on admission. Likely antibiotic related. No suspicious features to suggest C. difficile. Seems to be resolving now that antibiotic course is finished. - Antidiarrheal agents when necessary Resolving, stable and/or chronic conditions. #. Recent history of pulmonary embolism, present on admission, active. Patient' s INR was subtherapeutic on admission. - Warfarin management per pharmacy. This is therapeutic, no change in current therapy. #. Chronic Atrial fibrillation with acute rapid ventricular response, present on admission, improved and now rate controlled. Active and stable. Cause of escape from rate control is unclear. Possibly related to worsened congestive heart failure or urinary infection. - Telemetry monitoring. - Continue diltiazem at current dose. Continue warfarin. No further changes. #. Troponin elevation, present on admission. Resolved. - Troponin elevation likely secondary to demand ischemia from rapid rate. No further workup. #. Acute on chronic anemia. not present on admission. Active and stable. [facility] Hgb on admit 11.4, - 10.1 to 10.3 on repeat. Stool guiac negative. LDH, haptoglobin, and peripheral smear ordered. No evidence of GI blood loss anemia at this time. - Follow clinically #. Chronic kidney disease stage IV, POA and stable -Appears to be patient's baseline. -Continue to monitor CODE STATUS: Full code Disposition: Anticipate discharge home or SNF, possibly 09/16-. VTE Prophylaxis: Theraputic Anticoag with Warfarin VTE Mechanical Devices: Intermittant Pneumatic CD Resuscitation Status: CPR: Attempt Resuscitation Time spent 35 minutes Rupesh Carolina MD Sep 16, 2016 16:37
--- NOTE | 2016-09-16 19:00 | NUR ---
Incident Pt received his PRN ativan and oxycodone around 1640. He still had some pain, per baseline, but he appeared calm and had been A&O X3 for the entirety of the shift. Pt had been checked on recently and had no further needs. Around 1830, staff heard martín alarm go off. As staff was quickly gowning up into contact protection wear, pt stood up and immediately fell backwards, hitting the back of his head on the bathroom door. Pt has a scratch on his upper left arm and a couple of scratches on his left lower back as well as some redness. Vital signs have remained stable. MD notified. QMM paperwork filled out. Night RN notified.
--- NOTE | 2016-09-16 20:30 | NUR ---
CT Pt refused head CT which was ordered post fall. Pt incoherent, yelling, refusing to use pocket talker to letter communicate. 30 minutes later, pt calm and remembering incident, stating that he still refuses to have CT done today but would like to, "wait until tomorrow." CT staff notified and stated they would come again in the AM.
[2016-09-17] MEDS: Sodium Chloride LOK Flush 10 mL Syringe IVFLUSH SCH ×3 (00:30→17:24)
[2016-09-17 04:39] VITALS: BP 110/74; PULSE 79; RESP 18; O2SAT 91
[2016-09-17 05:57] LABS: INR 1.99 ratio
[2016-09-17] MEDS: Pantoprazole 20 mg ER24 Tablet PO SCH (06:30)
[2016-09-17] MEDS: Diltiazem CD 180 mg ER24 Capsule PO SCH (08:42)
[2016-09-17 08:57] VITALS: BP 123/82; PULSE 88; RESP 18; O2SAT 91
--- NOTE | 2016-09-17 13:38 | DRSVH ---
PROCEDURE: CT BRAIN WITHOUT CONTRAST ([id number]) INDICATIONS: head trauma, fall TECHNIQUE: Noncontrast 4.5 mm thick angled axial sections acquired from the foramen magnum to the vertex, with c oronal reformats. COMPARISON: [facility], CT, CT BRAIN WO CON, 06/25/2015, 17:54. [facility], CT, BRAIN W/O CONTRAST, 04/09/2010, 2:42. [facility], CT, BRAIN W/O CONTRAST, 009, 17:37. [facility], CT, BRAIN W/O CONTRAST, 12/21/2004, 20:53. FINDINGS: Image quality: Excellent. CSF spaces: Basal cisterns are patent. No extra-axial fluid collections. Ventricles are normal in size and shape. Brain: No midline shift. No intracranial masses or hemorrhage. Lnae-white matter interface is norm al. Skull and face: Calvarium and visualized facial bones are intact, without suspicious lesions. Sinuses: Visualized sinuses and mastoids are clear. IMPRESSION: No CT evidence of acute intracranial pathology. Dictated by: Antwon Miller M.D. on 09/17/2016 at 13:33 Approved by: Antwon Miller M.D. on 09/17/2016 at 13:36
--- NOTE | 2016-09-17 15:04 | NUR ---
CT/mentation/ambulating Pt agreed to go to CT today. No issues. Pt A&O X3 with baseline confusion. Mistakes this RN for people he knew in his past, doesn't always remember that he fell yesterday. Pt states that he plans to go home "on Monday." Agitated throughout day per baseline. More impulsive as he is becoming more ambulatory. Multiple attempts to self transfer and very resistant to accept help. Ate meals in the chair per MD request. "Get your hands off me" and "back up right now" when attempting to assist with transfers. Unsteady on feet but able to pivot short distance to chair or BSC with 1-2 assistance.
--- NOTE | 2016-09-17 16:58 | PCM.PNMED ---
Subjective Date of Service Sep 17, 2016 Subjective 76-year-old man with multiple medical problems presented with acute on chronic systolic congestive heart failure, A. fib with RVR, and urinary infection with ESBL. Prolonged hospital course with both physical and psychological disability. He seems to have fewer complaints today. He fell when ambulating to bathroom and hit his shoulder and head yesterday. Diarrhea is resolving. He is voicing concerns about need for assistance at home, due to general weakness. Friend and caregiver will not be home until Monday. He says he does not have acute his home until then. Exam Vital Signs Vital Sign - Last Date Time Temp Pulse Resp B/P Pulse Ox O2 Delivery O2 Flow Rate FiO2 09/17/16 08:57 36.5 88 18 123/82 91 Room Air 09/13/16 19:56 2.50 09/11/16 05:08 30 Intake and Output 09/16/16 09/16/16 09/17/16 Cumulative From/Thru 15:00 23:00 07:00 08/31/16 15:43 - 09/17/16 04:39 Intake Total 580 ml 850 ml 64948 ml Output Total 1000 ml 1200 ml 98087 ml Balance -420 ml -350 ml 633 ml Intake Oral 580 ml 850 ml 40285 ml IV Total 1695 ml Output Urine Total 1000 ml 1200 ml 77895 ml Stool Total 60 ml Drainage Total 50 ml # Voids 12 # Bowel Movements 1 27 Exam General: generally alert, labored breathing when he is emotionally distressed HEENT: sclerae anicteric, oral mucosa moist Neck: no apparent JVD, supple Chest: Generally clear to auscultation Cardiac: S1S2, irregular Abdomen: BS normal, non-tender Extremities: No pitting edema; left shoulder has no focal palpation pain, but he reports significant pain with active movement unwilling to tolerate passive movement Neuro: Alert, hard of hearing, cranial nerves appear symmetric, motor diffusely weak IVs and Medications Medications Reviewed: Medications were reviewed in detail Lab and Diagnostics Result Diagram: 09/15/16 0325 X-Rays, CTs and MRIs CT CHEST WITHOUT CONTRAST IMPRESSION: Small to moderate bilateral pleural effusions with adjacent atelectasis. Additional patchy consolidation in the left lung base possibly pneumonia or aspiration. Please correlate clinically. Mild cardiomegaly. Circumferential lower chest wall edema, possibly third spacing/anasarca. Please correlate clinically. Dictated by: Rizwan Orta M.D. on 08/31/2016 at 18:13 X-RAY CHEST ONE VIEW, PORTABLE IMPRESSION: The bibasilar pneumonia, left greater than right, possible mild or early pneumonia right upper lobe. 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 Dictated by: William Baker M.D. on 08/31/2016 at 16:23 PROCEDURE: X-RAY CHEST, TWO VIEWS ([id number]) IMPRESSION: Retrocardiac left lower lobe pneumonia, while mild right upper lobe scarring. Dictated by: William Baker M.D. on 09/10/2016 at 17:23 Approved by: William Baker M.D. on 09/10/2016 at 17:23 PROCEDURE: CT BRAIN WITHOUT CONTRAST ([id number]) IMPRESSION: No CT evidence of acute intracranial pathology. Dictated by: Antwon Miller M.D. on 09/17/2016 at 13:33 Cardiac Echo Impressions Interpretation Summary Left ventricular systolic function is normal without focal wall motion abnormalities. The ejection fraction is estimated to be 60-65%. LVEF has not changed since priro study. Left ventricular wall thickness is mild-moderately increased. The right ventricle is at the upper limits of normal in size. The right ventricular systolic function is normal. Right ventricular systolic pressure is estimated to be 20 mmHg plus the clinically estimated CVP which cannot be estimated on this exam. The left atrium is severely dilated. The right atrium is severely dilated. There is mild mitral regurgitation. There is no other significant valvular heart disease. The aortic root is mildly dilated. The ascending aorta is mildly enlarged. The aortic arch is mildly enlarged. E/E' med: 15.1 Assessment & Plan #. ESBL proteus UTI, present on admission. Active and improving. - No clinical symptoms aside from generalized weakness. He has history of relatively asymptomatic infections in the past. - Ertapenem initiated on 09/02/16, course completed on 09/15/16. Now discontinued - Infectious disease consult by Dr. Summers. There is one additional culture revealing ertapenem resistant species. Infectious disease is aware. #. Muscular deconditioning, not present on admission. Patient does not seem able to safely ambulate short distances. He is anticoagulated. Fall on did not result in brain bleeding. He refuses to consider discharge to SNF - Continue physical therapy - Plan discharge with home health RN and PT #. Acute on chronic anxiety, History of PTSD and depression. Active and stable. Patient feels significantly anxious and claustrophobic. Processes limited trust with care providers at [facility]. Will leave the door open. We do not have accurate medication records and he claims [facility] daily lorazepam. He seems intermittently somewhat sedated on this regimen - Lorazepam 1 mg twice a day, continue for now if no encephalopathy - Resume sertraline. #. Acute on chronic respiratory failure with hypercarbia and hypoxia, present on admission, Resolved. Likely secondary to CHF exacerbation. Do not see evidence of pneumonia or COPD exacerbation at this time. Patient is afebrile, has no white count, has a normal calcitonin, has no cough. Patient was given 125 mg of SoluMedrol in emergency department, subsequently discontinued. Moderate sized right sided pleural effusions on CT. Patient reports a recent thoracentesis at [facility] in [place]. Procalcitonin negative. No antibiotic treatment for pneumonia at this time. - Ipratropium every 4 hours while awake, levalbuterol every 2 hours as needed for shortness of breath - Keep O2 saturation between 88 and 92% - Check ABG with any worsened encephalopathy to rule out benzodiazepine induced respiratory depression #. Acute exacerbation of chronic diastolic congestive heart failure, present on admission, Resolved. Patient has noted orthopnea, exertional dyspnea and lower extremity edema over the last week. BNP is also significantly elevated at 25,000. Unclear if atrial fibrillation with RVR has worsened CHF or vice versa - Continue po Lasix 40 mg daily Resolving, stable and/or chronic conditions. #. Diarrhea, not present on admission. Likely antibiotic related. No suspicious features to suggest C. difficile. Seems to be resolving now that antibiotic course is finished. - Resolving #. Recent history of pulmonary embolism, present on admission, active. Patient' s INR was subtherapeutic on admission. - Warfarin management per pharmacy. This is therapeutic, no change in current therapy. #. Chronic Atrial fibrillation with acute rapid ventricular response, present on admission, improved and now rate controlled. Active and stable. Cause of escape from rate control is unclear. Possibly related to worsened congestive heart failure or urinary infection. - Telemetry monitoring. - Continue diltiazem at current dose. Continue warfarin. No further changes. #. Troponin elevation, present on admission. Resolved. - Troponin elevation likely secondary to demand ischemia from rapid rate. No further workup. #. Acute on chronic anemia. not present on admission. Active and stable. Recent GI bleed and surgery at the [facility] within the last 2 mo. Hgb on admit 11.4, - 10.1 to 10.3 on repeat. Stool guiac negative. LDH, haptoglobin, and peripheral smear ordered. No evidence of GI blood loss anemia at this time. - Follow clinically #. Chronic kidney disease stage IV, POA and stable -Appears to be patient's baseline. -Continue to monitor CODE STATUS: Full code Disposition: The patient is medically ready for discharge as of 09/18/16. VTE Prophylaxis: Theraputic Anticoag with Warfarin VTE Mechanical Devices: Intermittant Pneumatic CD Resuscitation Status: CPR: Attempt Resuscitation Time spent 35 minutes Rupesh Carolina MD Sep 17, 2016 16:58 - Follow clinically #. Chronic kidney disease stage IV, POA and stable -Appears to be patient's baseline. -Continue to monitor CODE STATUS: Full code Disposition: Anticipate discharge home or SNF, possibly 09/16-. VTE Prophylaxis: Theraputic Anticoag with Warfarin VTE Mechanical Devices: Intermittant Pneumatic CD Resuscitation Status: CPR: Attempt Resuscitation Rupesh Carolina MD Sep 17, 2016 16:58
[2016-09-17 17:20] VITALS: BP 95/63; PULSE 89; O2SAT 93
[2016-09-17 21:27] VITALS: BP 113/79; PULSE 83; RESP 22; O2SAT 92
[2016-09-17] MEDS: LORazepam 0.5 mg Tablet PO PRN (21:41)
[2016-09-18] MEDS: Sodium Chloride LOK Flush 10 mL Syringe IVFLUSH SCH ×3 (00:30→17:51)
--- NOTE | 2016-09-18 02:48 | NUR ---
Erratic/Pain Pt somewhat non compliant with care, not allow a full assessment, Agreed to take all his medications. is on room air, Telemetry DC'd. Saline locked Alert and oriented to self, somewhat to place. On strict Contact precautions, shoe covers required to enter room as well as gown and mask.
[2016-09-18 03:49] VITALS: BP 105/76; PULSE 82; RESP 18; O2SAT 92
[2016-09-18 04:36] LABS: INR 2.08 ratio
[2016-09-18] MEDS: Pantoprazole 20 mg ER24 Tablet PO SCH (05:53)
--- NOTE | 2016-09-18 07:48 | PCM.PHAPRO ---
Progress Warfarin dosing WARFARIN DOSING PER PHARMACY [facility] GSF DFF DFF -Sep 14-Sep 15-Sep 16-Sep 17-Sep 18-Sep 2.15 1.79 1.93 2.09 1.99 2.08 -0.81 -0.36 0.14 0.16 -0.1 0.09 5mg 5mg 5MG 5 MG 5 MG 5 MG Therapeutic INR. Will continue warfarin 5 mg this evening. Jose Oconnor, PharmD Jose Oconnor Sep 18, 2016 07:48
[2016-09-18 08:42] VITALS: BP 114/81; PULSE 90; RESP 14; O2SAT 92
[2016-09-18] MEDS: LORazepam 0.5 mg Tablet PO PRN ×2 (08:53→23:29)
[2016-09-18] MEDS: Diltiazem CD 180 mg ER24 Capsule PO SCH (08:53)
[2016-09-18 10:30] VITALS: BP 124/80; PULSE 86; RESP 18; O2SAT 92
--- NOTE | 2016-09-18 11:23 | NUR ---
Agitation Patient uncooperative with care, using inappropriate language with staff and refusing assessments. Patient requesting pain meds and ativan, both were given as ordered. Patient resting with eyes closed will not verbally respond to stimuli but pulls hands/feet away and resists repositioning. MD aware. VSS.
--- NOTE | 2016-09-18 11:47 | PCM.PNMED ---
Subjective Date of Service Sep 18, 2016 Subjective 76-year-old man with multiple medical problems presented with acute on chronic systolic congestive heart failure, A. fib with RVR, and urinary infection with ESBL. Prolonged hospital course with both physical and psychological disability. He is somnolent this morning but responding minimally to voice. Not cooperative with interview or exam. Exam Vital Signs Vital Sign - Last Date Time Temp Pulse Resp B/P Pulse Ox O2 Delivery O2 Flow Rate FiO2 09/18/16 10:30 86 18 124/80 92 Room Air 09/18/16 08:42 36.6 09/13/16 19:56 2.50 Intake and Output 09/17/16 09/17/16 09/18/16 Cumulative From/Thru 15:00 23:00 07:00 08/31/16 15:43 - 09/18/16 03:49 Intake Total 300 ml 1120 ml 09443 ml Output Total 400 ml 1025 ml 98980 ml Balance -100 ml 95 ml 628 ml Intake Oral 300 ml 1120 ml 92849 ml IV Total 1695 ml Output Urine Total 400 ml 1025 ml 22928 ml Stool Total 60 ml Drainage Total 50 ml # Voids 12 # Bowel Movements 27 Exam General: Sleepy, in no distress HEENT: sclerae anicteric, Chest: Generally clear to auscultation Cardiac: S1S2, irregular Abdomen: BS normal, non-tender Extremities: No pitting edema Neuro: Minimally responsive to voice but appears to understand, hard of hearing , cranial nerves appear symmetric IVs and Medications Medications Reviewed: Medications were reviewed in detail Lab and Diagnostics Result Diagram: 09/15/16 0325 X-Rays, CTs and MRIs CT CHEST WITHOUT CONTRAST IMPRESSION: Small to moderate bilateral pleural effusions with adjacent atelectasis. Additional patchy consolidation in the left lung base possibly pneumonia or aspiration. Please correlate clinically. Mild cardiomegaly. Circumferential lower chest wall edema, possibly third spacing/anasarca. Please correlate clinically. Dictated by: Rizwan Orta M.D. on 08/31/2016 at 18:13 X-RAY CHEST ONE VIEW, PORTABLE IMPRESSION: The bibasilar pneumonia, left greater than right, possible mild or early pneumonia right upper lobe. 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 Dictated by: William Baker M.D. on 08/31/2016 at 16:23 PROCEDURE: X-RAY CHEST, TWO VIEWS ([id number]) IMPRESSION: Retrocardiac left lower lobe pneumonia, while mild right upper lobe scarring. Dictated by: William Baker M.D. on 09/10/2016 at 17:23 Approved by: William Baker M.D. on 09/10/2016 at 17:23 PROCEDURE: CT BRAIN WITHOUT CONTRAST ([id number]) IMPRESSION: No CT evidence of acute intracranial pathology. Dictated by: Antwon Miller M.D. on 09/17/2016 at 13:33 Cardiac Echo Impressions Interpretation Summary Left ventricular systolic function is normal without focal wall motion abnormalities. The ejection fraction is estimated to be 60-65%. LVEF has not changed since priro study. Left ventricular wall thickness is mild-moderately increased. The right ventricle is at the upper limits of normal in size. The right ventricular systolic function is normal. Right ventricular systolic pressure is estimated to be 20 mmHg plus the clinically estimated CVP which cannot be estimated on this exam. The left atrium is severely dilated. The right atrium is severely dilated. There is mild mitral regurgitation. There is no other significant valvular heart disease. The aortic root is mildly dilated. The ascending aorta is mildly enlarged. The aortic arch is mildly enlarged. E/E' med: 15.1 Assessment & Plan #. Acute on chronic anxiety, History of PTSD and depression. Active and stable. Patient feels significantly anxious and claustrophobic. Processes limited trust with care providers at [facility]. Will leave the door open. We do not have accurate medication records and he claims [facility] give him twice daily lorazepam. He seems intermittently somewhat sedated on this regimen - Lorazepam 1 mg twice a day, continue for now if no encephalopathy - Resume sertraline. #. Muscular deconditioning, not present on admission. Patient does not seem able to safely ambulate short distances. He is anticoagulated. Fall on did not result in brain bleeding. He refuses to consider discharge to SNF - Continue physical therapy - Plan discharge with home health RN and PT Resolving, stable and/or chronic conditions. #. ESBL proteus UTI, present on admission. Resolved. - No clinical symptoms aside from generalized weakness. He has history of relatively asymptomatic infections in the past. - Ertapenem initiated on 09/02/16, course completed on 09/15/16. Now discontinued - Infectious disease consult by Dr. Summers. There is one additional culture revealing ertapenem resistant species. Infectious disease is aware. #. Acute on chronic respiratory failure with hypercarbia and hypoxia, present on admission, Resolved. Likely secondary to CHF exacerbation. Do not see evidence of pneumonia or COPD exacerbation at this time. Patient is afebrile, has no white count, has a normal calcitonin, has no cough. Patient was given 125 mg of SoluMedrol in emergency department, subsequently discontinued. Moderate sized right sided pleural effusions on CT. Patient reports a recent thoracentesis at [facility] in [place]. Procalcitonin negative. No antibiotic treatment for pneumonia at this time. - Ipratropium every 4 hours while awake, levalbuterol every 2 hours as needed for shortness of breath - Keep O2 saturation between 88 and 92% #. Acute exacerbation of chronic diastolic congestive heart failure, present on admission, Resolved. Patient has noted orthopnea, exertional dyspnea and lower extremity edema over the last week. BNP is also significantly elevated at 25,000. Unclear if atrial fibrillation with RVR has worsened CHF or vice versa - Continue po Lasix 40 mg daily #. Diarrhea, not present on admission. Likely antibiotic related. No suspicious features to suggest C. difficile. Seems to be resolving now that antibiotic course is finished. - Resolved #. Recent history of pulmonary embolism, present on admission, active. Patient' s INR was subtherapeutic on admission. - Warfarin management per pharmacy. This is therapeutic, no change in current therapy. #. Chronic Atrial fibrillation with acute rapid ventricular response, present on admission, improved and now rate controlled. Active and stable. Cause of escape from rate control is unclear. Possibly related to worsened congestive heart failure or urinary infection. - Telemetry monitoring. - Continue diltiazem at current dose. Continue warfarin. No further changes. #. Troponin elevation, present on admission. Resolved. - Troponin elevation likely secondary to demand ischemia from rapid rate. No further workup. #. Acute on chronic anemia. not present on admission. Active and stable. Recent GI bleed and surgery at the [facility] within the last 2 mo. Hgb on admit 11.4, - 10.1 to 10.3 on repeat. Stool guiac negative. LDH, haptoglobin, and peripheral smear ordered. No evidence of GI blood loss anemia at this time. - Follow clinically #. Chronic kidney disease stage IV, POA and stable -Appears to be patient's baseline. -Continue to monitor CODE STATUS: Full code Disposition: The patient is medically ready for discharge as of 09/18/16. VTE Prophylaxis: Theraputic Anticoag with Warfarin VTE Mechanical Devices: Intermittant Pneumatic CD Resuscitation Status: CPR: Attempt Resuscitation Time spent 25 min Rupesh Carolina MD Sep 18, 2016 11:47
--- NOTE | 2016-09-18 14:00 | NUR ---
Fall Patient was found down on floor next between bed and the bathroom. Patient unable to communicate exactly what happened, but initially refused help getting up. We were able to assist patient back to bed. Patient appears uninjured, his only complaint is L shoulder pain that has been bothering him for a few days. MD notified of fall. Patient resting in bed watching TV and eating lunch. Call light within reach and bed alarm on for safety.
--- NOTE | 2016-09-18 15:23 | NUR ---
Discharge Patient has had no chest pain/discomfort since admission, VSS. Denies dyspnea, discomfort. Discharge instructions printed and reviewed verbally with patient and her son. Patient teaching on sublingual nitroglycerin reviewed with patient. Patient left unit via with all personal belongings and discharged home via private vehicle. Addendum: 09/18/16 at 1527 by ABBIE CROWELL RN Note entered in error.
[2016-09-18 16:45] VITALS: PULSE 88; RESP 20; O2SAT 95
--- NOTE | 2016-09-18 18:07 | NUR ---
Shoulder pain Patient continues to c/o 10/10 L shoulder pain. MD notified and xrays ordered and done. Awaiting results. Will continue to monitor pt closely.
--- NOTE | 2016-09-18 18:10 | NUR ---
Social Work Note:Continued Discharge Planning Data& Assessment: Per MD in multidisciplinary rounds, pt is getting closer to being medically ready for discharge. However, pt is declining in mentation and physical strength. Pt is refusing to work with PT when they arrive for PT evaluations and pt continues to firmly decline going to SNF. Pt is having falls in his room when he does attempt to get out of bed without assistance and had a fall this afternoon. Pt CARLOSOA/Friend Darwin was at bedside today, PANELBOARD OPERATOR met with pt and pt friend Darwin together to discuss working with PT, safeness for discharge home and medical readiness for discharge. Pt states that he hasn't worked with PT lately because he hasn't found one that he feels comfortable working with. RN states that it has been different physical therapists trying to work with him. Pt confirmed his desire to discharge home as soon as possible but agrees that he needs to gain strength first. Pt friend Darwin insisted that pt work with PT and eat food to gain his strength back. Pt Friend/DANIAL Darwin shared privately that he believes pt condition is worsening and pt physically looks more ill than earlier this week. Pt friend questioned whether pt was on any new medications as well due to his change in mentation (Pt had a moment where he did not recognize Yoseph). Pt friend Darwin is beginning to think about LTC options but pt still has times of being alert and oriented and he does not feel comfortable with pt going anywhere he does not want to go in regard to SNF and states that pt would also not want caregivers or people in his home. Pt Darwin will continue to encourage pt to work with PT or consider going to SNF. Darwin plans to notify RN when he will visit pt next this week so we can coordinate PT evaluating pt while Darwin is at bedside to encourage him since Darwin seems to have a positive influence on pt. RN notified, updated and agreeable to plan. SW to continue to follow. Plan: Anticipated discharge home via POV when medically ready pending safeness of discharge and pt strengthening. Pt friend Darwin to be at bedside for PT evaluation this week to motivate pt. SW to continue to follow. NATALIE Hernadez
--- NOTE | 2016-09-18 18:28 | DRSVH ---
PROCEDURE: X-RAY LEFT SHOULDER, MINIMUM TWO VIEWS ([id number]) INDICATIONS: 76 year-old male with left shoulder pain after fall. TECHNIQUE: 2 views of the shoulder were acquired. COMPARISON: [facility], CR, XR SHOULDER MIN 2VW LT, 06/25/2015, 17:08. [facility], CR, XR SHOULDER MIN 2VW LT, 05/17/2015, 1:53. FINDINGS: Bones: There is an acute impacted fracture of the left humeral neck. There is nonacute nonunited lat eral left clavicle fracture as before. Severe left glenohumeral joint degeneration is again noted. No suspicious bony lesions. Visualized ribs appear intact. Soft tissues: No suspicious soft tissue calcifications. There is aortic atherosclerosis. IMPRESSION: 1. Mildly impacted acute fracture of the left humeral neck. 2. Nonacute nonunited lateral left clavicle fracture. 3. Severe left glenohumeral joint degeneration. Dictated by: Enoch Zhu M.D. on 09/18/2016 at 18:25 Approved by: Enoch Zhu M.D. on 09/18/2016 at 18:27
--- NOTE | 2016-09-18 18:29 | DRSVH ---
PROCEDURE: X-RAY LEFT ELBOW, TWO VIEWS ([id number]) INDICATIONS: 76 year-old male with left elbow pain after fall. TECHNIQUE: 2 views of the elbow were acquired. COMPARISON: None. FINDINGS: Bones: Comminuted intra-articular fracture of the olecranon is present, with 8 mm distraction of the main fracture components. Other bones appear intact. No suspicious bony lesions. Soft tissues: No elbow joint effusion. No suspicious soft tissue calcifications. IMPRESSION: Mildly displaced comminuted intra-articular fracture of the olecranon. Dictated by: Enoch Zhu M.D. on 09/18/2016 at 18:27 Approved by: Enoch Zhu M.D. on 09/18/2016 at 18:28
[2016-09-18 20:08] VITALS: BP 122/88; PULSE 124; RESP 23; O2SAT 89
[2016-09-19] MEDS: Sodium Chloride LOK Flush 10 mL Syringe IVFLUSH SCH ×3 (00:45→17:11)
[2016-09-19 04:25] LABS: INR 2.32 ratio
[2016-09-19 05:31] VITALS: BP 99/70; PULSE 124; RESP 20; O2SAT 90
--- NOTE | 2016-09-19 06:44 | NUR ---
MENTATION/REST/RESPIRATORY PT INTERMITTENT ORIENTATION, RESTED WITH EYES CLOSED FOR EXTENDED PERIODS. WAKES TO GENTLE STIMULI. C/O INCREASE PAIN IN L SHOULDER, IMMOBILIZER PLACED, MEDICATION GIVEN, ICE INTERMITTENTLY APPLIED. SPO2 84-86% WHEN ASLEEP, 2L O2 APPLIED SPO2 INCREASE TO 90-92%. PT. NOT ON TELE, HR RANGED 90-120. REPORT GIVEN TO ON COMING RN.
[2016-09-19 08:52] VITALS: BP 101/70; PULSE 101; O2SAT 86
[2016-09-19] MEDS: Diltiazem CD 180 mg ER24 Capsule PO SCH (09:01)
[2016-09-19] MEDS: Pantoprazole 20 mg ER24 Tablet PO SCH (09:03)
--- NOTE | 2016-09-19 10:40 | NUR ---
[facility] FOLLOW UP: Leon is asking for updated clinicals on patient and would like to know what is making this patient acute and why now would the transfer be needed. Leon is also referring us to the [facility]CH[facility] to help with any kind of fdc planning and placement. He is not understanding why we can not get patient placed at this time. Updated SCENIC DESIGNER
--- NOTE | 2016-09-19 14:15 | PCM.PNMED ---
Subjective Date of Service Sep 19, 2016 Subjective 76-year-old man with multiple medical problems presented with acute on chronic systolic congestive heart failure, A. fib with RVR, and urinary infection with ESBL. Prolonged hospital course with both physical and psychological disability. Now complicated by falling episodes with left humerus and olecranon fractures. He is alert this morning. No cardiorespiratory symptoms. Continued pain of left shoulder and upper arm, fairly minimal at rest. Exam Vital Signs Vital Sign - Last Date Time Temp Pulse Resp B/P Pulse Ox O2 Delivery O2 Flow Rate FiO2 09/19/16 09:00 Supplement Oxygen 09/19/16 08:52 36.7 101 101/70 86 09/19/16 05:31 20 09/13/16 19:56 2.50 Intake and Output 09/18/16 09/18/16 09/19/16 Cumulative From/Thru 15:00 23:00 07:00 08/31/16 15:43 - 09/19/16 05:58 Intake Total 200 ml 200 ml 100 ml 42661 ml Output Total 200 ml 1225 ml 59389 ml Balance 0 ml -1025 ml 100 ml -297 ml Intake Oral 200 ml 200 ml 100 ml 32799 ml IV Total 0 ml 1695 ml Output Urine Total 200 ml 1225 ml 42504 ml Stool Total 60 ml Drainage Total 50 ml # Voids 2 3 17 # Bowel Movements 1 28 Exam General: Alert, conversant, in no distress HEENT: sclerae anicteric, Chest: Generally clear to auscultation Cardiac: S1S2, irregular Abdomen: BS normal, non-tender Extremities: No pitting edema; left elbow with swelling 5 x 10 cm; point tender left elbow and left clavicle Neuro: Affect somewhat brighter today, hard of hearing, cranial nerves appear symmetric, moving other extremities normally IVs and Medications Medications Reviewed: Medications were reviewed in detail Lab and Diagnostics Result Diagram: 09/15/16 0325 X-Rays, CTs and MRIs CT CHEST WITHOUT CONTRAST IMPRESSION: Small to moderate bilateral pleural effusions with adjacent atelectasis. Additional patchy consolidation in the left lung base possibly pneumonia or aspiration. Please correlate clinically. Mild cardiomegaly. Circumferential lower chest wall edema, possibly third spacing/anasarca. Please correlate clinically. Dictated by: Rizwan Orta M.D. on 08/31/2016 at 18:13 X-RAY CHEST ONE VIEW, PORTABLE IMPRESSION: The bibasilar pneumonia, left greater than right, possible mild or early pneumonia right upper lobe. 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 Dictated by: William Baker M.D. on 08/31/2016 at 16:23 PROCEDURE: X-RAY CHEST, TWO VIEWS ([id number]) IMPRESSION: Retrocardiac left lower lobe pneumonia, while mild right upper lobe scarring. Dictated by: William Baker M.D. on 09/10/2016 at 17:23 Approved by: William Baker M.D. on 09/10/2016 at 17:23 PROCEDURE: CT BRAIN WITHOUT CONTRAST ([id number]) IMPRESSION: No CT evidence of acute intracranial pathology. Dictated by: Antwon Miller M.D. on 09/17/2016 at 13:33 PROCEDURE: X-RAY LEFT SHOULDER, MINIMUM TWO VIEWS ([id number]) IMPRESSION: 1. Mildly impacted acute fracture of the left humeral neck. 2. Nonacute nonunited lateral left clavicle fracture. 3. Severe left glenohumeral joint degeneration. Dictated by: Enoch Zhu M.D. on 09/18/2016 at 18:25 PROCEDURE: X-RAY LEFT ELBOW, TWO VIEWS ([id number]) IMPRESSION: Mildly displaced comminuted intra-articular fracture of the olecranon. Dictated by: Enoch Zhu M.D. on 09/18/2016 at 18:27 . Cardiac Echo Impressions Interpretation Summary Left ventricular systolic function is normal without focal wall motion abnormalities. The ejection fraction is estimated to be 60-65%. LVEF has not changed since priro study. Left ventricular wall thickness is mild-moderately increased. The right ventricle is at the upper limits of normal in size. The right ventricular systolic function is normal. Right ventricular systolic pressure is estimated to be 20 mmHg plus the clinically estimated CVP which cannot be estimated on this exam. The left atrium is severely dilated. The right atrium is severely dilated. There is mild mitral regurgitation. There is no other significant valvular heart disease. The aortic root is mildly dilated. The ascending aorta is mildly enlarged. The aortic arch is mildly enlarged. E/E' med: 15.1 Assessment & Plan #. Left humeral and olecranon fracture, acute. Current pain management as an acute when he is inactive. Will require increased pain medicines when he is ready to engage with physical therapy. Currently left arm is in sling. - Orthopedics consult, Dr. Garcia contacted - Pain management as needed #. Falling episodes, acute on chronic. Several episodes during this inpatient hospitalization. Most recently with trauma and fracture of left arm. He is left-handed. - I have advised patient he must consider SNF placement due to his inability to manage at home even with significant assistance. #. Muscular deconditioning, not present on admission. Patient does not seem able to safely ambulate short distances. He is anticoagulated. Fall on did not result in brain bleeding. He refuses to consider discharge to SNF - Continue physical therapy after patient has been okayed by orthopedics - Plan discharge to SNF assuming patient is willing #. Acute on chronic anxiety, History of PTSD and depression. Active and stable. Patient feels significantly anxious and claustrophobic. Processes limited trust with care providers at [facility]. Will leave the door open. We do not have accurate medication records and he claims [facility] give him twice daily lorazepam. He seems intermittently somewhat sedated on this regimen - Lorazepam 1 mg twice a day, continue for now, if no encephalopathy - Resume sertraline. Resolving, stable and/or chronic conditions. #. ESBL proteus UTI, present on admission. Resolved. - No clinical symptoms aside from generalized weakness. He has history of relatively asymptomatic infections in the past. - Ertapenem initiated on 09/02/16, course completed on 09/15/16. Now discontinued - Infectious disease consult by Dr. Summers. There is one additional culture revealing ertapenem resistant species. Infectious disease is aware. #. Acute on chronic respiratory failure with hypercarbia and hypoxia, present on admission, Resolved. Likely secondary to CHF exacerbation. Do not see evidence of pneumonia or COPD exacerbation at this time. Patient is afebrile, has no white count, has a normal calcitonin, has no cough. Patient was given 125 mg of SoluMedrol in emergency department, subsequently discontinued. Moderate sized right sided pleural effusions on CT. Patient reports a recent thoracentesis at [facility] in [place]. Procalcitonin negative. No antibiotic treatment for pneumonia at this time. - Ipratropium every 4 hours while awake, levalbuterol every 2 hours as needed for shortness of breath - Keep O2 saturation between 88 and 92% #. Acute exacerbation of chronic diastolic congestive heart failure, present on admission, Resolved. Patient has noted orthopnea, exertional dyspnea and lower extremity edema over the last week. BNP is also significantly elevated at 25,000. Unclear if atrial fibrillation with RVR has worsened CHF or vice versa - Continue po Lasix 40 mg daily #. Diarrhea, not present on admission. Likely antibiotic related. No suspicious features to suggest C. difficile. Seems to be resolving now that antibiotic course is finished. - Resolved #. Recent history of pulmonary embolism, present on admission, active. Patient' s INR was subtherapeutic on admission. - Warfarin management per pharmacy. This is therapeutic, no change in current therapy. #. Chronic Atrial fibrillation with acute rapid ventricular response, present on admission, improved and now rate controlled. Active and stable. Cause of escape from rate control is unclear. Possibly related to worsened congestive heart failure or urinary infection. - Telemetry monitoring. - Continue diltiazem at current dose. Continue warfarin. No further changes. #. Troponin elevation, present on admission. Resolved. - Troponin elevation likely secondary to demand ischemia from rapid rate. No further workup. #. Acute on chronic anemia. not present on admission. Active and stable. Recent GI bleed and surgery at the [facility] within the last 2 mo. Hgb on admit 11.4, - 10.1 to 10.3 on repeat. Stool guiac negative. LDH, haptoglobin, and peripheral smear ordered. No evidence of GI blood loss anemia at this time. - Follow clinically #. Chronic kidney disease stage IV, POA and stable -Appears to be patient's baseline. -Continue to monitor CODE STATUS: Full code Disposition: The patient is medically ready for discharge as of 09/18/16. VTE Prophylaxis: Theraputic Anticoag with Warfarin VTE Mechanical Devices: Intermittant Pneumatic CD Resuscitation Status: CPR: Attempt Resuscitation Time spent 35 minutes Rupesh Carolina MD Sep 19, 2016 14:15
[2016-09-19] MEDS: LORazepam 0.5 mg Tablet PO PRN (14:27)
--- NOTE | 2016-09-19 14:51 | NUR ---
NUTRITION FOLLOW-UP: ASSESS: 76 YO male admitted with shortness of breath. Pt s/p fall with L humeral and olecranon fracture. Pt is medically stable for discharge from notes. He is on a general diet with variable PO intake, however, po intake has not been well documented over the past 7 days (only 9 meals reported). PMHx: PTSD, anxiety and depression after being involved in combat in [place], bilateral cataracts, gastric bypass surgery, BPH, pyelonephritis, stage IV renal disease, RSV, enterocutaneous fistula requiring TPN. DIET: General, PB and crackers at 10, yogurt at 2, 2000 ML fluid restriction. PO intake 20-100% most trays. LABS: Reviewed. Cr 1.83. MEDICATIONS: Reviewed. GI: 1 BM 09/18. SKIN: No issues reported. ANTHROPOMETRICS: Current Wt: 69.7 kg (bed scale). Admit weight: 78.1 kg (standing scale). Question accuracy of bed scale weight. ESTIMATED NEEDS Calories: 4932-6528 kcal/day (22-25 kcal/kg) Protein: 75-95 g/day (1.0-1.2 g/kg) NUTRITION DIAGNOSIS: 1) Inconsistent PO intake related to inability to consume sufficient energy, as evidenced by 0-100% trays, likely due to significant psychological issues.--PERSISTS. INTERVENTION: 1) Continue current diet with supplements of PB w/ crackers @ 10 am and yogurt @ 2 pm. 2.) Recommend getting new standing scale weight to better assess weight trends. MONITOR/EVALUATE: PO intake, weight, labs, GI status, POC, nutrition status. Follow per low nutrition risk guidelines.
[2016-09-19 16:15] VITALS: BP 83/59; PULSE 64; RESP 22; O2SAT 90
[2016-09-19] MEDS ORDERED: 0.9% Sodium Chloride 500 ML IV ONE (16:45)
--- NOTE | 2016-09-19 17:03 | NUR ---
Mentation Pt was A&O but more confused than previous shifts. He knew he was in [place] but could not remember what city. Still oriented to self and situation. Pt has gotten up to use the BSC X2, very weak. Painful L shoulder. BM X2, formed. BP this evening 83/59. NS running 500cc over 12 hours per MD order.
--- NOTE | 2016-09-19 17:12 | NUR ---
Social Work: Multidisciplinary Rounds/Continued Discharge Planning D: Pt discussed in multidisciplinary rounds. Pt remains in PCC. Pt had a fall yesterday resulting in a broken clavicle. The patient continues to decline skilled rehab options. PT placed on hold until ortho can see the pt to assess. PRESCRIPTION CLERK LENSES has placed an APS report based on the criteria for self-neglect with information provided by pt's friend, Darwin, as supporting evidence. See notes from Case management on 09/15 and 09/18. Report confirmation #[id number]. A: Pt who lives at home, alone. P: Evolving; Anticipate pt to discharge home via POV once pt is safe to do so. PRESCRIPTION CLERK LENSES to continue to follow to assess for further discharge needs/options for the patient. NATALIE Matias
[2016-09-19 20:30] VITALS: BP 110/75; PULSE 98; RESP 18; O2SAT 94
[2016-09-20] MEDS: Sodium Chloride LOK Flush 10 mL Syringe IVFLUSH SCH ×4 (00:17→23:52)
[2016-09-20 03:33] VITALS: BP 89/60; PULSE 68; RESP 18; O2SAT 92
[2016-09-20 04:35] LABS: BASOPHILS % (AUTO) 0.1 % (0-3); EOSINOPHILS % (AUTO) 0.3 % (0-5); MONOCYTES % (AUTO) 7.6 % (4-12); Mean Corpuscular Hemoglobin 30.7 pg (27.0-35.0); Mean Corpuscular Volume 92.2 fL (81-100); NEUTROPHILS % (AUTO) 85.4 % (40-74); Platelet Count 252 bil/L (150-400)
[2016-09-20] MEDS: Pantoprazole 20 mg ER24 Tablet PO SCH ×2 (06:10→10:09)
--- NOTE | 2016-09-20 06:27 | NUR ---
NOC PT has been confused all shift. Oriented to self only. PT follows some directions, but other times pt does not even appear to hear what one is saying. PT appears to be having visual hallucinations while sleeping as he has been reaching out in front of him picking at things in the air. PT also continues to yell out random names and requests staff to "take me back to the other floor." PT is not able to reorient. PT has been NPO since RI for ORIF of L elbow today. Pt was medicated once for pain. The peripheral iv in his shoulder was leaking and RN unable to find vein in arms, but IV was placed with ease in R ankle per Dr Laurent's order to do so. NS currently infusing at 50. PT was a bit hypotensive before fluids were restarted. aware of this. Consent will have to be received from DANIAL Granados as pt is definitely not able to consent for self.
--- NOTE | 2016-09-20 06:47 | PCM.HPANE ---
Patient Data Surgeon Admitting Provider:Damien Vila MD Attending Provider:Rupesh Carolina MD [facility] Other Provider: Reason for Visit Sob/Pneumonia/Acs/Chf Ht/WT & BMI Weight (Kilograms): 68.300 Body Mass Index 33.80 Allergies Coded Allergies: meperidine (Verified Allergy, Severe, HIVES, 12/02/15) HAS TOLERATED OXYCODONE X MANY morphine (Verified Allergy, Severe, HIVES, 12/02/15) HAS TOLERATED OXYCODONE X MANY hydroxyzine (Verified Allergy, Intermediate, Hives, 12/02/15) codeine (Verified Allergy, Unknown, 12/02/15) HAS TOLERATED OXYCODONE X MANY Past Anesthesia History Anesthesia History: Denies:: Anesthesia Reactions Diabetes History Hx Diabetes?: No (hyperglycemia) 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.) Medications Active Scripts Citalopram Hydrobromide (Celexa)20 Mg Jafzbe73 Mg PO DAILY #30 TABLET Prov:JANEY SANCHEZ DO 09/02/16 Reported Medications Oxycodone (Roxicodone)5 Mg Tablet5 Mg PO Q4H PRN For Pain 08/31/16 Warfarin Sodium 5 Mg Tablet5 Mg PO DAILY 08/31/16 Melatonin/Pyridoxine HCl (B6) (Melatonin 3 mg Tablet)1 Each Tablet1 Each PO HS PRN Insomnia 08/31/16 Metoprolol Tartrate 25 Mg Rtszge94 Mg PO BID 08/31/16 Venlafaxine 75 Mg Iizhjf66 Mg PO TID 08/31/16 Omeprazole 20 Mg Capsule.dr20 Mg PO DAILY 08/31/16 Cholecalciferol (Vitamin D3) (Vitamin D3)2,000 Unit Capsule2,000 Unit PO DAILY 08/31/16 Acetaminophen 500 Mg Xfcudv236 Mg PO BID PRN For Pain 08/31/16 Tamsulosin (Flomax)0.4 Mg Capsule0.4 Mg PO DAILY 08/31/16 Prazosin 1 Mg Capsule3 Mg PO HS 08/31/16 Docusate Sodium 250 Mg Uassxud219 Mg PO QAM 08/31/16 Gabapentin 300 Mg Zdnzzvz979 Mg PO TID 08/31/16 History History of ENT Problems?: Yes HEENT History: Positive for:: Cataracts Hearing Problem Denies:: Dysphagia Sinus Problem Denture Type: Full- Upper Teeth Condition: Inflamed Gums Other HEENT Pertinent History: pt is hard of hearing Hx of Heart Problems?: Yes Cardiovascular History: Positive for:: Cardiac Surgery (AICD placement.) Chest Pain Congestive Heart Failure Edema Heart Murmur Hypertension Irregular Heartbeat (chronic afib) Pacemaker (AICD placement) Denies:: Thrombophlebitis Hx of Respiratory Problem?: Yes Respiratory History: Positive for:: COPD Dyspnea Pneumonia (frequent) Denies:: Asthma Chest Surgery Emphysema Hemoptysis Tuberculosis Hx Neurologic Problems?: Yes Neurological History: Positive for:: Dizziness Headaches Denies:: Alzheimer's Disease CVA Dementia Parkinson's Disease Seizures Hx of GI Problems?: Yes Hx of Problems?: Yes Genitourinary History: Positive for:: Kidney Stones Urinary Tract Infection (BLADDER INFECTIONS) Denies:: HX of Hemodialysis HX of Peritoneal Dialysis: No Male Hx: Denies:: Prostate Problems Scrotal Mass Testicular Surgery Hx Musculoskeletal Problems?: Yes Musculoskeletal History: Positive for:: Back Injury Joint Replacement (bilateral total knee replacement) Musculoskeletal Trauma ([place] Vet / traumatic injury PTSD) Hx of Psycho/Social Problems?: Yes Psycho Social History: Positive for:: Anxiety (PTSD from [place]) Hx Depression Denies:: Bipolar Disorder Suicide Attempt Hx Surgeries?: Yes Hx Any Other Health Problems?: Yes Other History: Positive for:: Hospitalization (sob, pna, acute renal failure, sepsis) Denies:: Cancer Endocrine Disease Thyroid Disease History Blood Transfusions: Positive for:: Accept Blood Products? Denies:: Blood Transfuse Reaction Blood Transfusions Hx Diabetes: No (hyperglycemia) Hx Alcohol Use: YesHx Substance Use: No Smoking Status: Former Smoker (patient quit 31 years ago) Have You Smoked inLast 12 mo: No Stop/Bang Treated for Sleep Apnea?: No Do You Have a CPAP Machine?: No S-Snoring: Do You Snore Loudly: No T-Tired: feel tired, fatigued: Yes O-Obsered: Observed not breath: No P-Blood Pressure: treated: Yes B- Body Mass Index > 35 kg/m2: No A- Age over 50: Yes N- Neck Large Circumference: No G- Gender Male: Yes ELLIE Total Score: 3 Risk Assessment Category Category 1A: Patient has history of documented sleep apnea, and HAS NOT received any narcotic, sedative or anesthesia administration during this stay. Category 1B: Patient has history of documented sleep apnea, and HAS received any narcotic , sedative or anesthesia administration during this stay Category 2: Patient has SUSPECTED Obstructive Sleep Apnea, and HAS received any narcotic , sedative or anesthesia administration during this stay. Category 3: Patient has SUSPECTED Obstructive Sleep Apnea and HAS NOT received narcotic, sedative or anesthesia administration during this stay. Category 4: Outpatient in Procedural Areas with known sleep apnea or who screen positive for High Risk via the STOP/BANG questionnaire. Exam Exam Vital Signs Vital Signs Date Time Temp Pulse Resp B/P Pulse Ox O2 Delivery O2 Flow Rate FiO2 09/20/16 03:33 37.5 68 18 89/60 92 Nasal Cannula 2.00 09/20/16 03:14 Supplement Oxygen General Appearance: Other HEENT/AIRWAY: Other Meds/Labs/Diagnostics Admission Meds Current Medications Nystatin 1 applic 1 applic BID TOPICAL Last administered on 09/19/16 21:34; Start 09/19/16 at 15:45 Sodium Chloride (Normal Saline) 500 ml @ 125 mls/hr Q4H ONCE IV Last administered on 09/19/16 17:11; Start 09/19/16 at 16:45; Stop 09/19/16 at 20:44 ; Status DC Labs Test 08/31/16 16:29 08/31/16 19:10 09/01/16 04:20 09/01/16 10:30 Magnesium Level 1.9mg/dL (1.6-2.6) Urine Color Yellow (YELLOW) Urine Appearance Hazy (CLEAR,HAZY) Urine pH 6.5 (5.0-8.0) Urine Specific [place] 1.020 (1.003-1.035) Urine Protein 30mg/dL (NEG,TRACE) Urine Glucose (UA) Negativemg/dL (NEGATIVE) Urine Ketones Negativemg/dL (NEGATIVE) Urine Occult Blood Trace (NEGATIVE) Urine Nitrite Positive (NEGATIVE) Urine Bilirubin Negative (NEGATIVE) Urine Urobilinogen Normalmg/dL (NORMAL) Urine Leukocyte Esterase Small (NEGATIVE) Urine RBC 0-2/hpf (0-2) Urine WBC Packed/hpf (0-5) Urine Epithelial Cells Few/hpf (NONE-MOD) Urine Crystals None seen (NONE SEEN) Urine Bacteria Many/hpf (NONE-FEW) Urine Hyaline Casts None/lpf (NONE) Urine Granular Casts None seen (NONE SEEN) Urine Waxy Casts None seen (NONE SEEN) Urine Red Blood Cell Casts None seen (NONE SEEN) Urine White Blood Cell Casts None seen (NONE SEEN) Urine Mucus None seen (None Seen) Urine Trichomonas None seen (NONE SEEN) Urine Yeast None (NONE SEEN) Urinalysis Comment None Urine Culture Reflexed Indicated Phosphorus Level 5.0mg/dL (2.5-4.9) D-Dimer 0.52mg/L FEU (<0.50) Test 09/01/16 20:38 09/02/16 13:32 09/02/16 14:15 09/04/16 02:35 Troponin T 0.066ug/L (0.0-0.011) Hematology Comments Haptoglobin < 10mg/dL (34-200) Lactate Dehydrogenase 242U/L (100-190) Procalcitonin 0.04ng/mL (0.00-0.08) Test 09/10/16 05:32 09/10/16 17:10 09/19/16 04:00 09/20/16 04:15 Pro-B-Type Natriuretic Peptide 27773iw/mL (0-486) Lactic Acid Level 1.0mmol/L (0.4-2.0) Total Bilirubin 0.2mg/dL (0.0-1.2) Aspartate Amino Transf (AST/SGOT) 110U/L (0-50) Alanine Aminotransferase (ALT/SGPT) 46U/L (0-44) Alkaline Phosphatase 89U/L (25-160) Total Protein 5.6g/dL (6.4-8.4) Albumin 2.7g/dL (3.4-5.0) Prothrombin Time 25.2sec (8.1-12.5) Prothromb Time International Ratio 2.32ratio White Blood Count 10.5th/mm3 (3.8-10.1) Red Blood Count 2.93mil/mm3 (4.40-5.80) Hemoglobin 9.0g/dL (13.8-17.2) Hematocrit 27.0% (41.0-50.0) Mean Corpuscular Volume 92.2fL (81-100) Mean Corpuscular Hemoglobin 30.7pg (27.0-35.0) Mean Corpuscular Hemoglobin Concent 33.3% (32.0-37.0) Red Cell Distribution Width 13.3% (12.3-15.4) Platelet Count 252bil/L (150-400) Neutrophils (%) (Auto) 85.4% (40-74) Lymphocytes (%) (Auto) 6.3% (14-46) Monocytes (%) (Auto) 7.6% (4-12) Eosinophils (%) (Auto) 0.3% (0-5) Basophils (%) (Auto) 0.1% (0-3) Sodium Level 133mEq/L (134-144) Potassium Level 4.0mEq/L (3.5-5.2) Chloride Level 90mEq/L (97-108) Carbon Dioxide Level 31mmol/L (18-29) Blood Urea Nitrogen 35mg/dL (8-27) Creatinine 2.19mg/dL (0.76-1.27) Estimat Glomerular Filtration Rate 31mL/min (>59) Glucose Level 84mg/dL (60-99) Calcium Level 8.1mg/dL (8.5-10.1) Plan Impression Patient chart reviewed, patient interviewed and anesthestic plan with risks, benefits, and alternatives discussed, and informed consent obtained. Other Case Postponed: 1) worsening renal function and not worked up or optimized 2) Patient has hx of PE with no Echo of heart 3) Patient has history of pacemaker. CXR shows an implanted device in chest but no wires going to heart. Need clarity on this Naresh Azevedo MD Sep 20, 2016 06:47
--- NOTE | 2016-09-20 07:30 | CONS ---
[address] [address] CONSULTATION REPORT PATIENT: JAYLEN LOPEZ : 1940 MR#: [id number] ADMIT: 08/31/2016 JOB ID: [id number] DATE OF SERVICE: 09/19/2016 HISTORY OF PRESENT ILLNESS: The patient was seen in consultation for evaluation of his left upper extremity. He fell several days ago and has had a painful elbow since that point in time. He states that he typically is able to utilize his left arm well for functions and activity of daily living. He complains of left elbow pain and left shoulder pain. His past medical history, social history, family history and review of systems is notable for multiple medical problems and is well documented in the chart. PHYSICAL EXAMINATION: On general exam, he is pleasant, alert and oriented x3. Appropriate mood and affect. He has intact skin, although skin is quite thin over his left elbow. He has tenderness with light palpation around the proximal femurs and tenderness with a palpable defect over the olecranon of the left elbow with discomfort with extension of the elbow. Radiographs reveal an old clavicle fracture on the left side, a femoral neck fracture in adequate position, and a displaced olecranon fracture. Treatment options were discussed with him. Functional return of elbow range of motion would require open reduction, internal fixation of his left elbow. He would like to proceed with this to optimize the function. This will be scheduled for tomorrow afternoon at his preference.
[2016-09-20 09:27] VITALS: BP 107/62; PULSE 80; RESP 18; O2SAT 94
[2016-09-20] MEDS: Diltiazem CD 180 mg ER24 Capsule PO SCH (09:37)
--- NOTE | 2016-09-20 10:45 | NUR ---
ND HOSPITAL FOLLOW UP: Spoke with Montse in patient access [phone] and let her know patient is still not willing to go to [facility], patient is continuing to struggle with participation. ND has placed dictation with last week stating patient was ready for rehab and not needing acute care. We have new MD on staff and thinking the patient may still need acute care. Faxed clinicals to [phone]. Updated PRINTER SLOTTER FEEDER
[2016-09-20] MEDS: 0.9% Sodium Chloride 1,000 ML IV SCH ×2 (12:51→22:07)
--- NOTE | 2016-09-20 13:49 | PCM.PNMED ---
Subjective Date of Service Sep 20, 2016 Subjective 76-year-old man with multiple medical problems presented with acute on diastolic congestive heart failure, A. fib with RVR, and urinary infection with ESBL. Prolonged hospital course with both physical and psychological disability. Now complicated by falling episodes with left humerus and olecranon fractures. His mental status waxes and wanes. It midday he seems sleepy and confused. He refused echocardiogram today. No cardiorespiratory symptoms. Continued pain of left shoulder and upper arm, controlled adequately at rest. Exam Vital Signs Vital Sign - Last Date Time Temp Pulse Resp B/P Pulse Ox O2 Delivery O2 Flow Rate FiO2 09/20/16 09:27 80 18 107/62 94 Nasal Cannula 2.00 09/20/16 03:33 37.5 Intake and Output 09/19/16 09/19/16 09/20/16 Cumulative From/Thru 15:00 23:00 07:00 08/31/16 15:43 - 09/20/16 03:33 Intake Total 608 ml 39453 ml Output Total 600 ml 09704 ml Balance 8 ml -289 ml Intake Oral 550 ml 66678 ml IV Total 58 ml 1753 ml Output Urine Total 600 ml 55481 ml Stool Total 60 ml Drainage Total 50 ml # Voids 1 18 # Bowel Movements 4 32 Exam General: Sleepy but minimally conversant, endorsing left arm pain distress HEENT: sclerae anicteric, mucosa is moist Chest: Generally clear to auscultation Cardiac: S1S2, regular Abdomen: BS normal, non-tender Extremities: No pitting edema; left elbow with swelling; point tender left elbow and left upper humerus Neuro: Hard of hearing, cranial nerves appear symmetric, moving other extremities, guarding left arm IVs and Medications Medications Reviewed: Medications were reviewed in detail Lab and Diagnostics Result Diagram: 09/20/16 0415 09/20/16 0415 X-Rays, CTs and MRIs CT CHEST WITHOUT CONTRAST IMPRESSION: Small to moderate bilateral pleural effusions with adjacent atelectasis. Additional patchy consolidation in the left lung base possibly pneumonia or aspiration. Please correlate clinically. Mild cardiomegaly. Circumferential lower chest wall edema, possibly third spacing/anasarca. Please correlate clinically. Dictated by: Rizwan Orta M.D. on 08/31/2016 at 18:13 X-RAY CHEST ONE VIEW, PORTABLE IMPRESSION: The bibasilar pneumonia, left greater than right, possible mild or early pneumonia right upper lobe. 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 Dictated by: William Baker M.D. on 08/31/2016 at 16:23 PROCEDURE: X-RAY CHEST, TWO VIEWS ([id number]) IMPRESSION: Retrocardiac left lower lobe pneumonia, while mild right upper lobe scarring. Dictated by: William Baker M.D. on 09/10/2016 at 17:23 Approved by: William Baker M.D. on 09/10/2016 at 17:23 PROCEDURE: CT BRAIN WITHOUT CONTRAST ([id number]) IMPRESSION: No CT evidence of acute intracranial pathology. Dictated by: Antwon Miller M.D. on 09/17/2016 at 13:33 PROCEDURE: X-RAY LEFT SHOULDER, MINIMUM TWO VIEWS ([id number]) IMPRESSION: 1. Mildly impacted acute fracture of the left humeral neck. 2. Nonacute nonunited lateral left clavicle fracture. 3. Severe left glenohumeral joint degeneration. Dictated by: Enoch Zhu M.D. on 09/18/2016 at 18:25 PROCEDURE: X-RAY LEFT ELBOW, TWO VIEWS ([id number]) IMPRESSION: Mildly displaced comminuted intra-articular fracture of the olecranon. Dictated by: Enoch Zhu M.D. on 09/18/2016 at 18:27 . Cardiac Echo Impressions Interpretation Summary Left ventricular systolic function is normal without focal wall motion abnormalities. The ejection fraction is estimated to be 60-65%. LVEF has not changed since priro study. Left ventricular wall thickness is mild-moderately increased. The right ventricle is at the upper limits of normal in size. The right ventricular systolic function is normal. Right ventricular systolic pressure is estimated to be 20 mmHg plus the clinically estimated CVP which cannot be estimated on this exam. The left atrium is severely dilated. The right atrium is severely dilated. There is mild mitral regurgitation. There is no other significant valvular heart disease. The aortic root is mildly dilated. The ascending aorta is mildly enlarged. The aortic arch is mildly enlarged. E/E' med: 15.1 Assessment & Plan #. Left humeral and olecranon fracture, acute. Current pain management as an acute when he is inactive. Will require increased pain medicines when he is ready to engage with physical therapy. Currently left arm is in sling. - Orthopedics consult, Dr. Garcia contacted recommend surgery for 09/21/16 - Nothing by mouth after midnight - Anesthesia requested repeat echocardiogram and hydration to improve creatinine. Unfortunately patient refused echocardiogram. Earlier this spring he had no systolic congestive heart failure, although he reportedly had DVT/PE since that time. - Pain management as needed #. Acute kidney injury. Not present on admission. He has chronic kidney disease 3a, with baseline creatinine 1.5. Creatinine is increased to 2.19 on , likely related to poor by mouth intake recently. - IV fluids at low rate today and overnight until recovery from surgery - Repeat BMP in a.m. #. Acute on chronic anxiety, History of PTSD and depression. Active and stable. Patient feels significantly anxious and claustrophobic. Processes limited trust with care providers at [facility]. Will leave the door open. We do not have accurate medication records and he claims his [facility] give him twice daily lorazepam. He seems intermittently somewhat sedated on this regimen - Lorazepam 1 mg twice a day, continue for now, if no encephalopathy - Resume sertraline. #. Acute exacerbation of chronic diastolic congestive heart failure, present on admission, Resolved. At time of admission Patient has noted orthopnea, exertional dyspnea and lower extremity edema over the last week. BNP is also significantly elevated at 25, 000. Clinical impression was acute diastolic CHF due to atrial fibrillation with RVR. He subsequently has developed poor by mouth fluid intake and rising serum creatinine - Currently holding his previous po Lasix 40 mg daily. He has diastolic CHF with good LVEF and no hypertension. Not clear that this needs to be resumed. - Daily BMP, intake and output #. Falling episodes, acute on chronic. Several episodes during this inpatient hospitalization. Most recently with trauma and fracture of left arm. He is left-handed. - I have advised patient he must consider SNF placement due to his inability to manage at home even with significant assistance. #. Muscular deconditioning, not present on admission. Patient does not seem able to safely ambulate short distances. He is anticoagulated. Fall on did not result in brain bleeding. He refuses to consider discharge to SNF - Continue physical therapy after patient has been okayed by orthopedics - Plan discharge to SNF assuming patient is willing #. Recent history of pulmonary embolism, present on admission, active. We do not have records of this diagnosis. Patient's INR was subtherapeutic on admission. - Warfarin management per pharmacy. This is therapeutic, no change in current therapy. - Currently holding warfarin in advance of surgery Resolving, stable and/or chronic conditions. #. Chronic Atrial fibrillation with acute rapid ventricular response, present on admission, improved and now rate controlled. Active and stable. Cause of escape from rate control is unclear. Possibly related to worsened congestive heart failure or urinary infection. - Telemetry monitoring. - Continue diltiazem at current dose. Continue warfarin. No further changes. #. Troponin elevation, present on admission. Resolved. Troponin level 0.042- 0.066 with no clear temporal pattern to suggest coronary ischemia, even with heart rate greater than 160. - Troponin elevation likely secondary to demand ischemia from rapid rate. No further workup. #. ESBL proteus UTI, present on admission. Resolved. - No clinical symptoms aside from generalized weakness. He has history of relatively asymptomatic infections in the past. - Ertapenem initiated on 09/02/16, course completed on 09/15/16. Now discontinued - Infectious disease consult by Dr. Summers. There is one additional culture revealing ertapenem resistant species. Infectious disease is aware. #. Acute on chronic respiratory failure with hypercarbia and hypoxia, present on admission, Resolved. At time of admission, likely secondary to diastolic CHF from rapid A. fib. Moderate sized right sided pleural effusions on CT. Patient reports a recent thoracentesis at [facility] in [place]. Procalcitonin negative. - Continue his usual Ipratropium every 4 hours while awake, levalbuterol every 2 hours as needed for shortness of breath #. Diarrhea, not present on admission. Likely antibiotic related. No suspicious features to suggest C. difficile. Seems to be resolving now that antibiotic course is finished. - Resolved #. Acute on chronic anemia. not present on admission. Active and stable. Recent GI bleed and surgery at the [facility] within the last 2 mo. Hgb on admit 11.4, - 10.1 to 10.3 on repeat. Stool guiac negative. LDH, haptoglobin, and peripheral smear ordered. No evidence of GI blood loss anemia at this time. - Follow clinically #. Chronic kidney disease stage IV, POA and stable -Appears to be patient's baseline. -Continue to monitor #. Enterocutaneous fistula, chronic. - Continue ostomy care CODE STATUS: Full code Disposition: The patient is medically ready for discharge as of 09/18/16. VTE Prophylaxis: Theraputic Anticoag with Warfarin VTE Mechanical Devices: Intermittant Pneumatic CD Resuscitation Status: CPR: Attempt Resuscitation Time spent 40 minutes Rupesh Carolina MD Sep 20, 2016 13:49
--- NOTE | 2016-09-20 14:16 | DRSVH ---
[facility] [address] [place] [address] Echocardiogram Report Name: JAYLEN LOPEZ RStudy Date : 09/20/2016 Height: 60 in Hospital Exam Location: [facility] Weight: 151 lb Gender: Male BSA: 1.7 m2 : 1940 Age: 76 yrs BP: 107/62 mmHg Reason For Study: DIASTOLIC CHF Ordering Physician: Performed By: Sondra Melgoza Referring Physician: CHLOE JAMES Interpretation Summary Patient became aggitate, grabbed the probe and refused exam. The study quality was technically limited. Left ventricular wall thickness is moderately increased. LV function or valvular disese cannot be accurately commented upon, due to limted nature of the exam. Procedure: The study quality was technically limited. The patient was in a tachycardic rhythm during the exam. Left Ventricle: Left ventricular wall thickness is moderately increased. The left ventricular cavity is small. Pericardium/ Pleura There is no pericardial effusion. There is no pleural effusion. MMode/2D Measurements & Calculations LVIDd asc Aorta Diam LV villeda. diameter/BSA LV sys. diameter/BSA : 4.1 cm (cm/m^2): 2.5 (cm/m^2): 1.9 LVIDs : 3.1 cm FS: 23.9 % IVSd : 1.cm LVPWd : 1.5 cm Electronically signed by: Rachid Coronel on Reading Physician:09/20/2016 02:15 PM
[2016-09-20 15:06] VITALS: BP 89/67; PULSE 89; O2SAT 92
[2016-09-20 16:41] VITALS: BP 81/56; PULSE 85; RESP 16; O2SAT 93
--- NOTE | 2016-09-20 17:41 | NUR ---
Mentation/BP Pt has been oriented to self only, he reported he thought he was at home. He became quite anxious in the afternoon believing staff members were trying to "move in" to his house and "take over". He has been observed hallucination frequently through the day, talking to people who are not in the room. He believed there were little children in his room at one point. Pt's BP was 81/56 this afternoon. notified. IV fluids rate increased to 125 ml/hr.
[2016-09-20 21:54] VITALS: BP 105/69; PULSE 105; RESP 16; O2SAT 90
[2016-09-21 02:03] VITALS: BP 110/73; PULSE 107; RESP 18; O2SAT 93
[2016-09-21] MEDS: 0.9% Sodium Chloride 1,000 ML IV SCH ×2 (04:46→14:16)
[2016-09-21 04:49] VITALS: BP 104/68
--- NOTE | 2016-09-21 06:31 | NUR ---
Mentation/BP/NPO Pt had moments of being oriented x3 but still intermittently confused about where he is and what the situation is, needs frequent reorienting, always at least oriented to self and easy to wake. Pt pleasant and compliant w/ care, though has been seen to talk to self in room, consistent w/ report. BP stable overnight, see vitals, HS metoprolol held d/t borderline BPs. Fluids continue. Respiratory status stable w/ reassessments. Pt continues on 2L NC, sats 93% Pt given pain meds w/ small sips around 0200, but otherwise kept NPO after midnight in case of procedure.
[2016-09-21] MEDS: Sodium Chloride LOK Flush 10 mL Syringe IVFLUSH SCH ×2 (08:30→16:30)
[2016-09-21] MEDS: Diltiazem CD 180 mg ER24 Capsule PO SCH (09:17)
[2016-09-21 09:18] VITALS: BP 113/80; PULSE 107; RESP 16; O2SAT 91
--- NOTE | 2016-09-21 11:45 | PCM.PNMED ---
Subjective Date of Service Sep 21, 2016 Subjective The patient appears to be confused today. He is not really answering questions but does open his eyes when talked to. He is moving all extremities spontaneously. Review of systems and subjective are not obtainable because of his inability to talk. Exam Vital Signs Vital Sign - Last Date Time Temp Pulse Resp B/P Pulse Ox O2 Delivery O2 Flow Rate FiO2 09/21/16 09:18 36.8 107 16 113/80 91 Room Air 09/21/16 02:03 2.00 Intake and Output 09/20/16 09/20/16 09/21/16 Cumulative From/Thru 15:00 23:00 07:00 08/31/16 15:43 - 09/21/16 07:00 Intake Total 984 ml 1653 ml 46327 ml Output Total 84487 ml Balance 984 ml 1653 ml 2348 ml Intake Oral 240 ml 100 ml 36934 ml IV Total 744 ml 1553 ml 4050 ml Output Urine Total 34212 ml Stool Total 60 ml Drainage Total 50 ml # Voids 2 3 23 # Bowel Movements 1 33 Exam Ashlyn a bowl, calm. Answers very few questions. Anicteric sclera. Lungs are clear with normal rate and effort Heart is regular without murmur gallop or rub Abdomen soft nontender, flat Extremities are with 1-2+ edema Skin is free of rash or lesions. Except multiple ecchymosis on the right forearm and a large bruising area over the left elbow. Lab and Diagnostics Result Diagram: 09/20/16 0415 09/20/16 0415 X-Rays, CTs and MRIs CT CHEST WITHOUT CONTRAST IMPRESSION: Small to moderate bilateral pleural effusions with adjacent atelectasis. Additional patchy consolidation in the left lung base possibly pneumonia or aspiration. Please correlate clinically. Mild cardiomegaly. Circumferential lower chest wall edema, possibly third spacing/anasarca. Please correlate clinically. Dictated by: Rizwan Orta M.D. on 08/31/2016 at 18:13 X-RAY CHEST ONE VIEW, PORTABLE IMPRESSION: The bibasilar pneumonia, left greater than right, possible mild or early pneumonia right upper lobe. 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 Dictated by: William Baker M.D. on 08/31/2016 at 16:23 PROCEDURE: X-RAY CHEST, TWO VIEWS ([id number]) IMPRESSION: Retrocardiac left lower lobe pneumonia, while mild right upper lobe scarring. Dictated by: William Baker M.D. on 09/10/2016 at 17:23 Approved by: William Baker M.D. on 09/10/2016 at 17:23 PROCEDURE: CT BRAIN WITHOUT CONTRAST ([id number]) IMPRESSION: No CT evidence of acute intracranial pathology. Dictated by: Antwon Miller M.D. on 09/17/2016 at 13:33 PROCEDURE: X-RAY LEFT SHOULDER, MINIMUM TWO VIEWS ([id number]) IMPRESSION: 1. Mildly impacted acute fracture of the left humeral neck. 2. Nonacute nonunited lateral left clavicle fracture. 3. Severe left glenohumeral joint degeneration. Dictated by: Enoch Zhu M.D. on 09/18/2016 at 18:25 PROCEDURE: X-RAY LEFT ELBOW, TWO VIEWS ([id number]) IMPRESSION: Mildly displaced comminuted intra-articular fracture of the olecranon. Dictated by: Enoch Zhu M.D. on 09/18/2016 at 18:27 . Cardiac Echo Impressions Interpretation Summary Left ventricular systolic function is normal without focal wall motion abnormalities. The ejection fraction is estimated to be 60-65%. LVEF has not changed since priro study. Left ventricular wall thickness is mild-moderately increased. The right ventricle is at the upper limits of normal in size. The right ventricular systolic function is normal. Right ventricular systolic pressure is estimated to be 20 mmHg plus the clinically estimated CVP which cannot be estimated on this exam. The left atrium is severely dilated. The right atrium is severely dilated. There is mild mitral regurgitation. There is no other significant valvular heart disease. The aortic root is mildly dilated. The ascending aorta is mildly enlarged. The aortic arch is mildly enlarged. E/E' med: 15.1 Assessment & Plan #. Left humeral and olecranon fracture, acute. Current pain management as an acute when he is inactive. Will require increased pain medicines when he is ready to engage with physical therapy. Currently left arm is in sling. - Orthopedics consult, Dr. Garcia contacted recommend surgery for 09/21/16. No change to this plan. - Nothing by mouth after midnight - Anesthesia requested repeat echocardiogram and hydration to improve creatinine. Unfortunately patient refused echocardiogram. Earlier this spring he had no systolic congestive heart failure, although he reportedly had DVT/PE since that time. - Pain management as needed #. Acute kidney injury. Not present on admission. He has chronic kidney disease 3a, with baseline creatinine 1.5. Creatinine is increased to 2.19 on , likely related to poor by mouth intake recently. - IV fluids at low rate today and overnight until recovery from surgery - Repeat BMP in a.m. this appears stable. #. Acute on chronic anxiety, History of PTSD and depression. Active and stable. Patient feels significantly anxious and claustrophobic. Processes limited trust with care providers at [facility]. Will leave the door open. We do not have accurate medication records and he claims [facility] give him twice daily lorazepam. He seems intermittently somewhat sedated on this regimen - Lorazepam 1 mg twice a day, continue for now, if no encephalopathy - Resume sertraline. We will stop lorazepam as patient appears to be encephalopathic. 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 #. Acute exacerbation of chronic diastolic congestive heart failure, present on admission, Resolved. At time of admission Patient has noted orthopnea, exertional dyspnea and lower extremity edema over the last week. BNP is also significantly elevated at 25, 000. Clinical impression was acute diastolic CHF due to atrial fibrillation with RVR. He subsequently has developed poor by mouth fluid intake and rising serum creatinine - Currently holding his previous po Lasix 40 mg daily. He has diastolic CHF with good LVEF and no hypertension. Not clear that this needs to be resumed. - Daily BMP, intake and output no change to his daily dosing of medications. #. Falling episodes, acute on chronic. Several episodes during this inpatient hospitalization. Most recently with trauma and fracture of left arm. He is left-handed. - I have advised patient he must consider SNF placement due to his inability to manage at home even with significant assistance. #. Muscular deconditioning, not present on admission. Patient does not seem able to safely ambulate short distances. He is anticoagulated. Fall on did not result in brain bleeding. He refuses to consider discharge to SNF - Continue physical therapy after patient has been okayed by orthopedics - Plan discharge to SNF assuming patient is willing #. Recent history of pulmonary embolism, present on admission, active. We do not have records of this diagnosis. Patient's INR was subtherapeutic on admission. - Warfarin management per pharmacy. This is therapeutic, no change in current therapy. - Currently holding warfarin in advance of surgery Resolving, stable and/or chronic conditions. #. Chronic Atrial fibrillation with acute rapid ventricular response, present on admission, improved and now rate controlled. Active and stable. Cause of escape from rate control is unclear. Possibly related to worsened congestive heart failure or urinary infection. - Telemetry monitoring. - Continue diltiazem at current dose. Continue warfarin. No further changes. #. Troponin elevation, present on admission. Resolved. Troponin level 0.042- 0.066 with no clear temporal pattern to suggest coronary ischemia, even with heart rate greater than 160. - Troponin elevation likely secondary to demand ischemia from rapid rate. No further workup. #. ESBL proteus UTI, present on admission. Resolved. - No clinical symptoms aside from generalized weakness. He has history of relatively asymptomatic infections in the past. - Ertapenem initiated on 09/02/16, course completed on 09/15/16. Now discontinued - Infectious disease consult by Dr. Summers. There is one additional culture revealing ertapenem resistant species. Infectious disease is aware. #. Acute on chronic respiratory failure with hypercarbia and hypoxia, present on admission, Resolved. At time of admission, likely secondary to diastolic CHF from rapid A. fib. Moderate sized right sided pleural effusions on CT. Patient reports a recent thoracentesis at [facility] in [place]. Procalcitonin negative. - Continue his usual Ipratropium every 4 hours while awake, levalbuterol every 2 hours as needed for shortness of breath #. Diarrhea, not present on admission. Likely antibiotic related. No suspicious features to suggest C. difficile. Seems to be resolving now that antibiotic course is finished. - Resolved #. Acute on chronic anemia. not present on admission. Active and stable. Recent GI bleed and surgery at the [facility] within the last 2 mo. Hgb on admit 11.4, - 10.1 to 10.3 on repeat. Stool guiac negative. LDH, haptoglobin, and peripheral smear ordered. No evidence of GI blood loss anemia at this time. - Follow clinically #. Chronic kidney disease stage IV, POA and stable -Appears to be patient's baseline. -Continue to monitor #. Enterocutaneous fistula, chronic. - Continue ostomy care CODE STATUS: Full code VTE Prophylaxis: Theraputic Anticoag with Warfarin VTE Mechanical Devices: Intermittant Pneumatic CD Resuscitation Status: CPR: Attempt Resuscitation Joel Mckenna MD Sep 21, 2016 11:45
[2016-09-21 12:10] LABS: Mean Corpuscular Hemoglobin 30.3 pg (27.0-35.0); Mean Corpuscular Volume 92.7 fL (81-100)
--- NOTE | 2016-09-21 15:54 | NUR ---
PT NOTE-- Spoke with MD and will discharge PT at this time. Patient with new fx's and ortho recommending surgery. Please re-order if/when appropriate.
[2016-09-21 17:17] VITALS: BP 114/73; PULSE 110; RESP 18; O2SAT 91
--- NOTE | 2016-09-21 18:04 | NUR ---
Ostomy bag Pt has pulled off his ostomy bag 2 times today and was pulling at his skin and putting his fingers in the wound. I educated the pt about the importance of leaving the bag on and keeping that area cleaned. He said he did not pull the bag off today and he knows how to keep the area clean. Will keep closer eye on this. Cleaned the site and placed another bag.
--- NOTE | 2016-09-21 18:11 | PCM.PNORTH ---
Subjective Date of Service: Sep 21, 2016 Visit Information: Reason for Visit Sob/Pneumonia/Acs/Chf Surgery/Surgery Date Post-Op Day # Date of Admission: Aug 31, 2016 at 19:38 Hospital Day # Subjective Patient is confused today and is stating he needs more pills and medications but cannot express what pills he needs and for what purpose. I attempted to discuss with the patient about how he has refused his echo and thus we cannot proceed with surgery but he seemed very confused. Postop General: No Shortness of Breath, No Chest Pain Pain Management: PO Objective Exam Objective Patient laying in bed, no immobilization of the left arm. Vital Signs and I/O Vital Sign - Last Date Time Temp Pulse Resp B/P Pulse Ox O2 Delivery O2 Flow Rate FiO2 09/21/16 17:17 36.4 110 18 114/73 91 Room Air 09/21/16 02:03 2.00 Intake and Output 09/20/16 09/20/16 09/21/16 Cumulative From/Thru 15:00 23:00 07:00 08/31/16 15:43 - 09/21/16 07:00 Intake Total 984 ml 1653 ml 18731 ml Output Total 87435 ml Balance 984 ml 1653 ml 2348 ml Intake Oral 240 ml 100 ml 33444 ml IV Total 744 ml 1553 ml 4050 ml Output Urine Total 70774 ml Stool Total 60 ml Drainage Total 50 ml # Voids 2 3 23 # Bowel Movements 1 33 Lab & Micro Results Laboratory Tests Test 09/21/16 12:00 White Blood Count 9.3th/mm3 (3.8-10.1) Red Blood Count 3.00mil/mm3 (4.40-5.80) Hemoglobin 9.1g/dL (13.8-17.2) Hematocrit 27.8% (41.0-50.0) Mean Corpuscular Volume 92.7fL (81-100) Mean Corpuscular Hemoglobin 30.3pg (27.0-35.0) Mean Corpuscular Hemoglobin Concent 32.7% (32.0-37.0) Red Cell Distribution Width 13.1% (12.3-15.4) Platelet Count 293bil/L (150-400) Sodium Level 133mEq/L (134-144) Potassium Level 4.3mEq/L (3.5-5.2) Chloride Level 94mEq/L (97-108) Carbon Dioxide Level 26mmol/L (18-29) Blood Urea Nitrogen 31mg/dL (8-27) Creatinine 1.90mg/dL (0.76-1.27) Estimat Glomerular Filtration Rate 37mL/min (>59) Glucose Level 75mg/dL (60-99) Calcium Level 7.8mg/dL (8.5-10.1) Microbiology 08/31/16 Blood Culture - Final, Complete NO GROWTH AFTER 5 DAYS 09/10/16 Campylobacter (PCR) - Final, Complete Not Detected 09/10/16 Clostridium difficile Toxin A&B (M) - Final, Complete Not Detected 09/10/16 Plesiomonas shigelloides (PCR) - Final, Complete Not Detected 09/10/16 Salmonella (PCR)(BURT) - Final, Complete Not Detected 09/10/16 Yersinia enterocolitica (PCR) - Final, Complete Not Detected 09/10/16 Vibrio Species (PCR) - Final, Complete Not Detected 09/10/16 Vibrio Cholerae (PCR) - Final, Complete Not Detected 09/10/16 Enteroaggregative E. coli (PCR) - Final, Complete Not Detected 09/10/16 Enteropathogenic E. coli (PCR) - Final, Complete Not Detected 09/10/16 Enterotoxigenic E. coli (PCR) - Final, Complete Not Detected 09/10/16 E. coli Shiga-like Toxin (PCR) - Final, Complete Not Detected 09/10/16 Escherichia coli 0157 (PCR) - Final, Complete Not Detected 09/10/16 Enteroinvasive E. coli/Shigella PCR - Final, Complete Not Detected 09/10/16 Cryptosporidium (PCR) - Final, Complete Not Detected 09/10/16 Cyclospora cayetanensis (PCR) - Final, Complete Not Detected 09/10/16 Entamoeba histolytica (PCR) - Final, Complete Not Detected 09/10/16 Giardia lamblia (PCR) - Final, Complete Not Detected 09/10/16 Adenovirus Type F 40/41 (PCR) - Final, Complete Not Detected 09/10/16 Astrovirus (PCR) - Final, Complete Not Detected 09/10/16 Norovirus (PCR) - Final, Complete Not Detected 09/10/16 Rotavirus A (PCR) - Final, Complete Not Detected 09/10/16 Sapovirus I/II/IV/V (PCR) - Final, Complete 09/11/16 Adenovirus DNA (PCR) - Final, Complete Not Detected 09/11/16 Coronavirus 229E PCR - Final, Complete Not Detected 09/11/16 Coronavirus HKU1 PCR - Final, Complete Not Detected 09/11/16 Coronavirus NL63 PCR - Final, Complete Not Detected 09/11/16 Coronavirus OC43 PCR - Final, Complete Not Detected 09/11/16 Influenza Type A (PCR) - Final, Complete Not Detected 09/11/16 Influenza Type B (PCR) - Final, Complete Not Detected 09/11/16 Human Metapneumovirus (PCR) (BURT) - Final, Complete Not Detected 09/11/16 Rhinovirus (PCR)(BURT) - Final, Complete Not Detected 09/11/16 Parainfluenza Virus Type 1 (PCR) - Final, Complete Not Detected 09/11/16 Parainfluenza Virus Type 2 (PCR) - Final, Complete Not Detected 09/11/16 Parainfluenza Virus Type 3 (PCR) - Final, Complete Not Detected 09/11/16 Parainfluenza Virus Type 4 (NAAT) - Final, Complete Not Detected 09/11/16 Respiratory Syncytial Virus (PCR)NH - Final, Complete Not Detected 09/11/16 Chlamydia pneumoniae (PCR) - Final, Complete Not Detected 09/11/16 Mycoplasma pneumoniae DNA Detection - Final, Complete 08/31/16 Urine Culture - Final, Complete Proteus Mirablis Esbl Tobacco Stemmer Mixed Urogenital Poonam 09/06/16 Gram Stain - Final, Complete 09/06/16 Culture & Sensitivity - Final, Complete Carbapenem R Klebsiella Spp. With Normal Poonam 09/06/16 Anaerobic Culture - Final, Complete No anaerobes isolated Result Diagram: 09/21/16 1200 09/21/16 1200 Extremities: Distal Pulses Palpable, No Compartment Syndrom Noted Postop Sensory Motor: Distal Motor Intact, Movement in Fingers, Distal Sensation Intact, NVI Distally SURGICAL WOUND : Drain Location Body Site: Abdomen Wound Drainage Type: ostomy Assessment & Plan Impression 1. Old clavicle fracture on the left side 2. Left humeral neck fracture in adequate position 3. Displaced left olecranon fracture Problems: Plan Patient did not seem to be concerned about us not proceeding with surgery. I explained that if we do not proceed with surgery he will have limited range of motion and, thus, decreased functionality with the left upper extremity. He voiced his understanding and admitted he "doesn't use it right now anyhow." Patient was placed in an ulnar gutter splint and instructed to remain nonweightbearing. Patient will remain in the splint for 4 weeks. He will not remove it. He will not get it wet. If the splint is disrupted or becomes wet, please call our office and we will arrange to have a new splint or cast placed. Patient should remain nonweightbearing with his left upper extremity - no pushing, pulling, lifting or grasping. Per Dr. Garcia, we will have patient follow up in our office in 4 weeks with myself, Elina Fung PA-C, with xrays out of splint. We will hopefully begin motion at that time. Patient will have a deficit in function but he verbalized his understanding and acceptance of the plan. Orthopedics will sign off at this time but appreciate the consult and are happy to return in the future if necessary. VTE Prophylaxis: Theraputic Anticoag with Warfarin Resuscitation Status: CPR: Attempt Resuscitation Elina Fung PA-C Sep 21, 2016 18:11
[2016-09-21 22:08] VITALS: BP 102/75; PULSE 113; RESP 22; O2SAT 93
[2016-09-22] MEDS: Sodium Chloride LOK Flush 10 mL Syringe IVFLUSH SCH ×3 (00:13→16:19)
[2016-09-22] MEDS: 0.9% Sodium Chloride 1,000 ML IV SCH ×3 (02:32→17:42)
--- NOTE | 2016-09-22 03:04 | NUR ---
LOC/Meds/NO tele Altered LOC, oriented to self, has conversations with entities not apparent to care givers. Not able to comprehend care needs or plan . will alternately agree and dis-agree with requests to comply with various needs of caregivers. In no apparent distress, is not complaining of pain or anxiety. only discomfort is feeling cold. Resolved with blankets Left arm in splint, bruising showing at upper margin of splint. Not on Telemetry, room air. NS @ 75 . Has skin break-down on arms that can tend to bleed, Addendum: 09/22/16 at 0415 by EMIR JAMES RN On Strict Contact precautions, shoe covers, gown, mask gloves.
[2016-09-22 04:46] VITALS: BP 112/79; PULSE 102; RESP 20; O2SAT 91
[2016-09-22] MEDS: Pantoprazole 20 mg ER24 Tablet PO SCH (06:44)
[2016-09-22] MEDS: Diltiazem CD 180 mg ER24 Capsule PO SCH (08:03)
[2016-09-22 08:30] VITALS: BP 135/85; PULSE 79; RESP 17; O2SAT 91
--- NOTE | 2016-09-22 13:13 | PCM.PNMED ---
Subjective Date of Service Sep 22, 2016 Subjective The patient is a little less confused today. He does know since 2017 but thinks is at the [facility]. He denies any chest pain but his left elbow does hurt. He states he does want have the elbow fixed. He denies any difficulty with his breathing or abdominal pain. Other than intermittent agitation no other overnight events noted. Exam Vital Signs Vital Sign - Last Date Time Temp Pulse Resp B/P Pulse Ox O2 Delivery O2 Flow Rate FiO2 09/22/16 08:30 36.7 79 17 135/85 91 Room Air 09/21/16 02:03 2.00 Intake and Output 09/21/16 09/21/16 09/22/16 Cumulative From/Thru 15:00 23:00 07:00 08/31/16 15:43 - 09/22/16 06:20 Intake Total 1112 ml 1004 ml 55716 ml Output Total 600 ml 86485 ml Balance 512 ml 1004 ml 3864 ml Intake Oral 236 ml 100 ml 82572 ml IV Total 876 ml 904 ml 5830 ml Output Urine Total 600 ml 32796 ml Stool Total 60 ml Drainage Total 50 ml # Voids 1 24 # Bowel Movements 2 35 Exam Alert and oriented to person, year and hospital. No distress. Fluent speech. Anicteric sclera. Lungs are clear with normal rate and effort Heart is regular without murmur gallop or rub Abdomen soft nontender, flat Extremities are free of edema. Moves arms and legs. Left arm is splinted at the elbow. He has good radial pulse and no normal capillary Refill and movement of all fingers. Skin is free of rash or lesions. IVs and Medications Medications Reviewed: Medications were reviewed in detail Lab and Diagnostics Result Diagram: 09/21/16 1200 09/21/16 1200 X-Rays, CTs and MRIs CT CHEST WITHOUT CONTRAST IMPRESSION: Small to moderate bilateral pleural effusions with adjacent atelectasis. Additional patchy consolidation in the left lung base possibly pneumonia or aspiration. Please correlate clinically. Mild cardiomegaly. Circumferential lower chest wall edema, possibly third spacing/anasarca. Please correlate clinically. Dictated by: Rizwan Orta M.D. on 08/31/2016 at 18:13 X-RAY CHEST ONE VIEW, PORTABLE IMPRESSION: The bibasilar pneumonia, left greater than right, possible mild or early pneumonia right upper lobe. 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 Dictated by: William Baker M.D. on 08/31/2016 at 16:23 PROCEDURE: X-RAY CHEST, TWO VIEWS ([id number]) IMPRESSION: Retrocardiac left lower lobe pneumonia, while mild right upper lobe scarring. Dictated by: William Baker M.D. on 09/10/2016 at 17:23 Approved by: William Baker M.D. on 09/10/2016 at 17:23 PROCEDURE: CT BRAIN WITHOUT CONTRAST ([id number]) IMPRESSION: No CT evidence of acute intracranial pathology. Dictated by: Antwon Miller M.D. on 09/17/2016 at 13:33 PROCEDURE: X-RAY LEFT SHOULDER, MINIMUM TWO VIEWS ([id number]) IMPRESSION: 1. Mildly impacted acute fracture of the left humeral neck. 2. Nonacute nonunited lateral left clavicle fracture. 3. Severe left glenohumeral joint degeneration. Dictated by: Enoch Zhu M.D. on 09/18/2016 at 18:25 PROCEDURE: X-RAY LEFT ELBOW, TWO VIEWS ([id number]) IMPRESSION: Mildly displaced comminuted intra-articular fracture of the olecranon. Dictated by: Enoch Zhu M.D. on 09/18/2016 at 18:27 . Cardiac Echo Impressions Interpretation Summary Left ventricular systolic function is normal without focal wall motion abnormalities. The ejection fraction is estimated to be 60-65%. LVEF has not changed since priro study. Left ventricular wall thickness is mild-moderately increased. The right ventricle is at the upper limits of normal in size. The right ventricular systolic function is normal. Right ventricular systolic pressure is estimated to be 20 mmHg plus the clinically estimated CVP which cannot be estimated on this exam. The left atrium is severely dilated. The right atrium is severely dilated. There is mild mitral regurgitation. There is no other significant valvular heart disease. The aortic root is mildly dilated. The ascending aorta is mildly enlarged. The aortic arch is mildly enlarged. E/E' med: 15.1 Assessment & Plan #. Left humeral and olecranon fracture, acute. Current pain management as an acute when he is inactive. Will require increased pain medicines when he is ready to engage with physical therapy. Currently left arm is in sling. - Orthopedics consult, Dr. Garcia contacted recommend surgery for 09/21/16. No change to this plan. - Nothing by mouth after midnight - Anesthesia requested repeat echocardiogram and hydration to improve creatinine. Unfortunately patient previously refused echocardiogram. Earlier this spring he had no systolic congestive heart failure, although he reportedly had DVT/PE since that time. - Pain management as needed The patient agrees to an echo today which will be performed. His limited. His creatinine is improved. He continues to want to repair of his left elbow per today's conversation. #. Acute kidney injury. Not present on admission and improved.. He has chronic kidney disease 3a, with baseline creatinine 1.5. Creatinine is increased to 2.19 on 09/20, likely related to poor by mouth intake recently. - IV fluids at low rate today and overnight until recovery from surgery -That is 1.90 today. #. Acute on chronic anxiety, History of PTSD and depression. Active and stable. Patient feels significantly anxious and claustrophobic. Processes limited trust with care providers at [facility]. Will leave the door open. We do not have accurate medication records and he claims [facility] him twice daily lorazepam. He seems intermittently somewhat sedated on this regimen - Lorazepam 1 mg twice a day, continue for now, if no encephalopathy - Resume sertraline. We will stop lorazepam as patient appears to be encephalopathic. 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 #. Acute exacerbation of chronic diastolic congestive heart failure, present on admission, Resolved. At time of admission Patient has noted orthopnea, exertional dyspnea and lower extremity edema over the last week. BNP is also significantly elevated at 25, 000. Clinical impression was acute diastolic CHF due to atrial fibrillation with RVR. He subsequently has developed poor by mouth fluid intake and rising serum creatinine - Currently holding his previous po Lasix 40 mg daily. He has diastolic CHF with good LVEF and no hypertension. Not clear that this needs to be resumed. - Daily BMP, intake and output no change to his daily dosing of medications. #. Falling episodes, acute on chronic. Stable. No recent falls in last 2 days. Several episodes during this inpatient hospitalization. Most recently with trauma and fracture of left arm. He is left-handed. - I have advised patient he must consider SNF placement due to his inability to manage at home even with significant assistance. #. Muscular deconditioning, not present on admission. Patient does not seem able to safely ambulate short distances. He is anticoagulated. Fall on did not result in brain bleeding. He refuses to consider discharge to SNF - Continue physical therapy after patient has been okayed by orthopedics - Plan discharge to SNF assuming patient is willing #. Recent history of pulmonary embolism, present on admission, active. We do not have records of this diagnosis. Patient's INR was subtherapeutic on admission. - Warfarin management per pharmacy. This is therapeutic, no change in current therapy. - Currently holding warfarin in advance of surgery, we will need to resume in the next day if he is not going to surgery. Will also consider unfractionated heparin if there is much more delayed. #. Chronic Atrial fibrillation with acute rapid ventricular response, present on admission, improved and now rate controlled. Active and stable. Cause of escape from rate control is unclear. Possibly related to worsened congestive heart failure or urinary infection. - Telemetry monitoring. - Continue diltiazem at current dose. Continue warfarin. No further changes. #. Troponin elevation, present on admission. Resolved. Troponin level 0.042- 0.066 with no clear temporal pattern to suggest coronary ischemia, even with heart rate greater than 160. - Troponin elevation likely secondary to demand ischemia from rapid rate. No further workup. #. ESBL proteus UTI, present on admission. Resolved. - No clinical symptoms aside from generalized weakness. He has history of relatively asymptomatic infections in the past. - Ertapenem initiated on 09/02/16, course completed on 09/15/16. Now discontinued - Infectious disease consult by Dr. Summers. There is one additional culture revealing ertapenem resistant species. Infectious disease is aware. #. Acute on chronic respiratory failure with hypercarbia and hypoxia, present on admission, Resolved. At time of admission, likely secondary to diastolic CHF from rapid A. fib. Moderate sized right sided pleural effusions on CT. Patient reports a recent thoracentesis at [facility] in [place]. Procalcitonin negative. - Continue his usual Ipratropium every 4 hours while awake, levalbuterol every 2 hours as needed for shortness of breath #. Diarrhea, not present on admission. Likely antibiotic related. No suspicious features to suggest C. difficile. Seems to be resolving now that antibiotic course is finished. - Resolved #. Acute on chronic anemia. not present on admission. Active and stable. Recent GI bleed and surgery at the [facility] within the last 2 mo. Hgb on admit 11.4, - 10.1 to 10.3 on repeat. Stool guiac negative. LDH, haptoglobin, and peripheral smear ordered. No evidence of GI blood loss anemia at this time. - Follow clinically #. Chronic kidney disease stage IV, POA and stable -Appears to be patient's baseline. -Continue to monitor #. Enterocutaneous fistula, chronic. - Continue ostomy care CODE STATUS: Full code VTE Prophylaxis: Theraputic Anticoag with Warfarin VTE Mechanical Devices: Intermittant Pneumatic CD Resuscitation Status: CPR: Attempt Resuscitation Joel Mckenna MD Sep 22, 2016 13:13
[2016-09-22 14:10] LABS: INR 2.23 ratio
--- NOTE | 2016-09-22 16:37 | NUR ---
Arm Splint Pt was picking at the lining of his splint and started to unroll his zaida wrap. I reminded him about why he was in the splint and that it had to stay on for 4 weeks. He remembered that he is to not put any weight on his left arm and remembered talking to the orthopedic docs yesterday. He stated that it itched. Full sensation to his hands and able to wiggle his fingers. The rest of the day he left the splint alone. Will continue to monitor.
--- NOTE | 2016-09-22 17:04 | NUR ---
Social Work: Continued Discharge Planning/Multidisciplinary Rounds D: Pt discussed in multidisciplinary rounds. The patient requires surgery to repair his fractures however is refusing to complete the necessary prep for surgery. The patient's mentation continues to wax and wane. Sedative medications have been removed from the pt's medication list in attempts to orient the patient back to his baseline. At this time, the patient's plan remains unknown. Treatment continues as allowed however there is no imminent plans for surgery and a discharge plan remains to be determined. If the patient's mentation does not improve, his level of decisionality will need to be assessed by providers. Attending and resident providers agree with this and are familiar with pt's baseline mentation. A: Pt who lives alone in P: Evolving; no anticipated discharge plans at this time. NATALIE Matias
[2016-09-22 17:37] VITALS: BP 134/95; PULSE 117; RESP 18; O2SAT 93
[2016-09-22 20:17] VITALS: BP 117/87; PULSE 115; RESP 16; O2SAT 92
[2016-09-23] VITALS (8 sets, daily range): BP systolic 113–143; BP diastolic 76–96; PULSE 62–132; RESP 16–20; O2SAT 91–96
[2016-09-23] MEDS: Sodium Chloride LOK Flush 10 mL Syringe IVFLUSH SCH ×3 (00:30→15:32)
--- NOTE | 2016-09-23 02:42 | NUR ---
Compliant/Confused Can re-orient pt to comply with care givers, he will have word salad episodes. Thus far he had used the urinal and remained continent of stool. He has C/O discomfort with his splinted arm , though is able to move all fingers and has touch sensation in the affected hand. While sleeping he will mumble for minutes at a time . Has been interested in when his surgery will take place as he wants to be on time and where he belongs. NS @ 75 , IV in ankle. No tele Room Air Strict Contact precautions.
[2016-09-23] MEDS: Pantoprazole 20 mg ER24 Tablet PO SCH (06:26)
[2016-09-23] MEDS: 0.9% Sodium Chloride 1,000 ML IV SCH (06:26)
[2016-09-23] MEDS: Diltiazem CD 180 mg ER24 Capsule PO SCH (08:30)
--- NOTE | 2016-09-23 09:11 | NUR ---
Spoke with Montse in patient access at [facility] and they have no bed this morning. She would like to know if we can have someone evaluate patient for decisional capacity. 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
--- NOTE | 2016-09-23 11:49 | DRSVH ---
[facility] [address] [place] [address] Echocardiogram Report Name: JAYLEN LOPEZ RStudy Date : 09/22/2016 Height: 60 in Hospital Exam Location: [facility] Weight: 158 lb Gender: Male BSA: 1.7 m2 : 1940 Age: 76 yrs BP: 135/85 mmHg Reason For Study: PRE-OP Ordering Physician: HOSPITALIST ESHAHPerformed By: Tank Leon Referring Physician: NHUNG HENDRICKSON Interpretation Summary Patient had difficulty cooperating with exam 2 days ago and refused exam shortly into it. An abbreviated study was performed today to ensure that the requesting surgeon would get the needed information. Left ventricular systolic function grossly appears low normal with the ejection fraction visually estimated to be 50-55% with a mild dyssynchronous contraction pattern, consistent with a conduction abnormality but no obvious focal wall motion abnormalities. Left ventricular systolic function appears slightly less dynamic compared to the previous study. The left ventricle is normal in size with probable mild concentric left ventricular hypertrophy. Diastolic function could not be accurately assessed due to atrial fibrillation. The right ventricle is mild to moderately dilated and right ventricular systolic function is mild to moderately reduced. The right ventricle appears slightly larger and less dynamic compared to the previous study. The right ventricular systolic pressure is estimated at 40 mmHg assuming a right atrial pressure of 8 mm Hg, and is likely higher compared to the previous study. The atria are not well visualized but there grossly appears to be moderate biatrial enlargement. There is mild to moderate mitral regurgitation and mild to moderate tricuspid regurgitation that are both more prominent compared to the previous study. The aortic valve is moderately calcified but without hemodynamically significant valvular aortic stenosis. The ascending aorta is mildly enlarged and measures slightly larger compared to the previous study. There is a trivial to small pericardial effusion and a small left-sided pleural effusion that are new compared to the previous study but there are no echocardiographic or Doppler indications for cardiac tamponade. A reliable EKG could not be obtained due to patient movement but the patient was likely in atrial fibrillation with heart rates between 60-100 bpm during the exam. Procedure: A two-dimensional transthoracic echocardiogram with color flow and Doppler was performed in limited views only. The study quality was technically adequate. Comparison is made with the echocardiogram of 05/23/2016. A reliable EKG could not be obtained due to patient movement. The patient was in atrial fibrillation with heart rates between 60-100 bpm during the exam. Left Ventricle: The left ventricle is normal in size. There is mild concentric left ventricular hypertrophy. Left ventricular systolic function is low normal. The ejection fraction is estimated to be 50-55%. This is slightly less dynamic compared to the previous study. There is a mild dyssynchronous contraction pattern, consistent with a conduction abnormality. There are no focal wall motion abnormalities. Diastolic function could not be accurately assessed due to atrial fibrillation. Right Ventricle: The right ventricle is mild to moderately dilated. Right ventricular systolic function is mild to moderately reduced. This is slightly larger and less dynamic compared to the previous study. Atria: The left atrium is not well visualized. There is moderate biatrial enlargement. Mitral Valve: The mitral valve leaflets appear borderline thickened, but open well. There is mild to moderate mitral regurgitation. This is more prominent compared to the previous study. Aortic Valve: The aortic valve is trileaflet. There is mild aortic valve sclerosis. The aortic valve is moderately calcified. Leaflet mobility is mildly reduced. There is no hemodynamically significant valvular aortic stenosis. No aortic regurgitation is present. Tricuspid Valve: The tricuspid valve leaflets are thickened and/or calcified, but open well. There is mild to moderate tricuspid regurgitation. This is more prominent compared to the previous study. The right ventricular systolic pressure is estimated at 40 mmHg assuming a right atrial pressure of 8 mm Hg. Pulmonic Valve: The pulmonic valve is not well visualized. Great Vessels: The aortic root is normal size. The ascending aorta is mildly enlarged. This is slightly larger compared to the previous study. The pulmonary is not well visualized. The IVC is of normal diameter and collapses less than 50% with a sniff. This suggests a right atrial pressure of 8 mm Hg. Pericardium/ Pleura There is a trivial to small pericardial effusion noted. There are no echocardiographic or Doppler indications for cardiac tamponade. There is a small left-sided pleural effusion. This is new compared to the previous study. MMode/2D Measurements & Calculations IVC diam: 2.1 cm asc Aorta Diam: 3.9 cm Doppler Measurements & Calculations TR max lavern: 282.0 cm/sec TR max P.0 mmHg Reading Physician:11:48 AM
--- NOTE | 2016-09-23 13:35 | PCM.PNMED ---
Subjective Date of Service Sep 23, 2016 Subjective The patient remains somewhat delirious with oscillating level of orientation. He states he is not in [place] near the oil tanks at one point. He does note some left elbow pain. He has great difficulty answering specific questions today. Reviewing the situation with the nurse indicates that he is not sometimes more coherent than other times. Phone conversation with his DURABLE POWER OF OUTPATIENT RECEPTIONIST for healthcare, [place], has been visiting the patient every day indicates similar findings but overall he feels the patient has been clearing mentally progressively for the last 2 days since having his benzodiazepines and opiates discontinued. No other overnight events noted. Exam Vital Signs Vital Sign - Last Date Time Temp Pulse Resp B/P Pulse Ox O2 Delivery O2 Flow Rate FiO2 09/23/16 12:37 102 16 138/90 93 Room Air 09/23/16 08:30 36.9 09/21/16 02:03 2.00 Intake and Output 09/22/16 09/22/16 09/23/16 Cumulative From/Thru 15:00 23:00 07:00 08/31/16 15:43 - 09/23/16 06:46 Intake Total 350 ml 2003 ml 41923 ml Output Total 800 ml 86327 ml Balance -450 ml 2003 ml 5417 ml Intake Oral 350 ml 200 ml 10854 ml IV Total 1803 ml 7633 ml Output Urine Total 800 ml 90809 ml Stool Total 60 ml Drainage Total 50 ml # Voids 1 25 # Bowel Movements 0 35 Exam Alert and oriented to self but not place or year. Mostly fluent speech. Anicteric sclera. Lungs are clear with normal rate and effort Heart is regular without murmur gallop or rub Abdomen soft nontender, flat. Ostomy in place. Extremities are free of edema. Skin is free of rash or lesions. IVs and Medications Medications Reviewed: Medications were reviewed in detail Lab and Diagnostics Result Diagram: 09/21/16 1200 09/21/16 1200 X-Rays, CTs and MRIs CT CHEST WITHOUT CONTRAST IMPRESSION: Small to moderate bilateral pleural effusions with adjacent atelectasis. Additional patchy consolidation in the left lung base possibly pneumonia or aspiration. Please correlate clinically. Mild cardiomegaly. Circumferential lower chest wall edema, possibly third spacing/anasarca. Please correlate clinically. Dictated by: Rizwan Orta M.D. on 08/31/2016 at 18:13 X-RAY CHEST ONE VIEW, PORTABLE IMPRESSION: The bibasilar pneumonia, left greater than right, possible mild or early pneumonia right upper lobe. 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 Dictated by: William Baker M.D. on 08/31/2016 at 16:23 PROCEDURE: X-RAY CHEST, TWO VIEWS ([id number]) IMPRESSION: Retrocardiac left lower lobe pneumonia, while mild right upper lobe scarring. Dictated by: William Baker M.D. on 09/10/2016 at 17:23 Approved by: William Baker M.D. on 09/10/2016 at 17:23 PROCEDURE: CT BRAIN WITHOUT CONTRAST ([id number]) IMPRESSION: No CT evidence of acute intracranial pathology. Dictated by: Antwon Miller M.D. on 09/17/2016 at 13:33 PROCEDURE: X-RAY LEFT SHOULDER, MINIMUM TWO VIEWS ([id number]) IMPRESSION: 1. Mildly impacted acute fracture of the left humeral neck. 2. Nonacute nonunited lateral left clavicle fracture. 3. Severe left glenohumeral joint degeneration. Dictated by: Enoch Zhu M.D. on 09/18/2016 at 18:25 PROCEDURE: X-RAY LEFT ELBOW, TWO VIEWS ([id number]) IMPRESSION: Mildly displaced comminuted intra-articular fracture of the olecranon. Dictated by: Enoch Zhu M.D. on 09/18/2016 at 18:27 . Cardiac Echo Impressions Interpretation Summary Left ventricular systolic function is normal without focal wall motion abnormalities. The ejection fraction is estimated to be 60-65%. LVEF has not changed since priro study. Left ventricular wall thickness is mild-moderately increased. The right ventricle is at the upper limits of normal in size. The right ventricular systolic function is normal. Right ventricular systolic pressure is estimated to be 20 mmHg plus the clinically estimated CVP which cannot be estimated on this exam. The left atrium is severely dilated. The right atrium is severely dilated. There is mild mitral regurgitation. There is no other significant valvular heart disease. The aortic root is mildly dilated. The ascending aorta is mildly enlarged. The aortic arch is mildly enlarged. E/E' med: 15.1 Assessment & Plan #. Severe possible encephalopathy, relatively new. This may be slowly improving with discontinuance of benzodiazepines and opiates. We will continue to follow closely. Had a long discussion about this with his durable part for healthcare today. He does understand the situation. #. Left humeral and olecranon fracture, acute. Current pain management as an acute when he is inactive. Will require increased pain medicines when he is ready to engage with physical therapy. Currently left arm is in sling. - Orthopedics consult, Dr. Garcia contacted recommend surgery for 09/21/16. No change to this plan. - Nothing by mouth after midnight - Anesthesia requested repeat echocardiogram and hydration to improve creatinine. Unfortunately patient previously refused echocardiogram. Earlier this spring he had no systolic congestive heart failure, although he reportedly had DVT/PE since that time. - Pain management as needed Orthopedics signed off. However I believe it will be very difficult to coordinate outpatient follow-up with him down the road. We will continue to try to improve his encephalopathy by holding benzodiazepines and opiates over the weekend and readdress the possibility of operative repair with orthopedics Monday morning. #. Acute kidney injury. Not present on admission and improved.. He has chronic kidney disease 3a, with baseline creatinine 1.5. Creatinine is increased to 2.19 on 09/20, likely related to poor by mouth intake recently. - IV fluids at low rate today and overnight until recovery from surgery No changes. We will continue fluids at 75 miles an hour and follow creatinine every other day or so. #. Acute on chronic anxiety, History of PTSD and depression. Active and stable. Patient feels significantly anxious and claustrophobic. Processes limited trust with care providers at [facility]. Will leave the door open. We do not have accurate medication records and he claims [facility] him twice daily lorazepam. He seems intermittently somewhat sedated on this regimen - Lorazepam 1 mg twice a day, continue for now, if no encephalopathy - Resume sertraline. We will stop lorazepam as patient appears to be encephalopathic. 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 #. Acute exacerbation of chronic diastolic congestive heart failure, present on admission, Resolved. At time of admission Patient has noted orthopnea, exertional dyspnea and lower extremity edema over the last week. BNP is also significantly elevated at 25, 000. Clinical impression was acute diastolic CHF due to atrial fibrillation with RVR. He subsequently has developed poor by mouth fluid intake and rising serum creatinine - Currently holding his previous po Lasix 40 mg daily. He has diastolic CHF with good LVEF and no hypertension. Not clear that this needs to be resumed. - Daily BMP, intake and output no change to his daily dosing of medications. #. Falling episodes, acute on chronic. Stable. No recent falls in last 2 days. Several episodes during this inpatient hospitalization. Most recently with trauma and fracture of left arm. He is left-handed. - I have advised patient he must consider SNF placement due to his inability to manage at home even with significant assistance. #. Muscular deconditioning, not present on admission. Patient does not seem able to safely ambulate short distances. He is anticoagulated. Fall on did not result in brain bleeding. He refuses to consider discharge to SNF - Continue physical therapy after patient has been okayed by orthopedics - Plan discharge to SNF assuming patient is willing #. Recent history of pulmonary embolism, present on admission, active. We do not have records of this diagnosis. Patient's INR was subtherapeutic on admission. - Warfarin management per pharmacy. This is therapeutic, no change in current therapy. - Currently holding warfarin in advance of surgery, we will need to resume in the next day if he is not going to surgery. Will also consider unfractionated heparin if there is much more delayed. #. Chronic Atrial fibrillation with acute rapid ventricular response, present on admission, improved and now rate controlled. Active and stable. Cause of escape from rate control is unclear. Possibly related to worsened congestive heart failure or urinary infection. - Telemetry monitoring. - Continue diltiazem at current dose. Continue warfarin. No further changes. #. Troponin elevation, present on admission. Resolved. Troponin level 0.042- 0.066 with no clear temporal pattern to suggest coronary ischemia, even with heart rate greater than 160. - Troponin elevation likely secondary to demand ischemia from rapid rate. No further workup. #. ESBL proteus UTI, present on admission. Resolved. - No clinical symptoms aside from generalized weakness. He has history of relatively asymptomatic infections in the past. - Ertapenem initiated on 09/02/16, course completed on 09/15/16. Now discontinued - Infectious disease consult by Dr. Summers. There is one additional culture revealing ertapenem resistant species. Infectious disease is aware. #. Acute on chronic respiratory failure with hypercarbia and hypoxia, present on admission, Resolved. At time of admission, likely secondary to diastolic CHF from rapid A. fib. Moderate sized right sided pleural effusions on CT. Patient reports a recent thoracentesis at [facility] in [place]. Procalcitonin negative. - Continue his usual Ipratropium every 4 hours while awake, levalbuterol every 2 hours as needed for shortness of breath #. Diarrhea, not present on admission. Likely antibiotic related. No suspicious features to suggest C. difficile. Seems to be resolving now that antibiotic course is finished. - Resolved #. Acute on chronic anemia. not present on admission. Active and stable. Recent GI bleed and surgery at the [facility] within the last 2 mo. Hgb on admit 11.4, - 10.1 to 10.3 on repeat. Stool guiac negative. LDH, haptoglobin, and peripheral smear ordered. No evidence of GI blood loss anemia at this time. - Follow clinically #. Chronic kidney disease stage IV, POA and stable -Appears to be patient's baseline. -Continue to monitor #. Enterocutaneous fistula, chronic. - Continue ostomy care CODE STATUS: Full code VTE Prophylaxis: Theraputic Anticoag with Warfarin VTE Mechanical Devices: Intermittant Pneumatic CD Resuscitation Status: CPR: Attempt Resuscitation Joel Mckenna MD Sep 23, 2016 13:35
--- NOTE | 2016-09-23 18:33 | NUR ---
Mentation Pt more alert today than previous days. In the morning he believed he was in the kitchen and was observed saying "you are an excellent cook" when no one was present in the room. He asked staff to move him out of the kitchen and into a bedroom. Difficult to reorient him to the current place/situation. In the afternoon he did know that he was in "[place]" but was not able to state he was in the hospital. He did know that he had a broken arm and was awaiting surgery. He frequently requested pain medication. He became increasingly anxious by evening time and kept saying "I am not used to being around people all the time, I like to be by myself". He does not appear to know he is in the hospital and he is difficult to reorient again believing that staff are not telling him the truth "I don't believe you."
[2016-09-23] MEDS: Albuterol 2.5 mg/3 mL Inhalation Solution NEB PRN (19:49)
[2016-09-24] MEDS: Sodium Chloride LOK Flush 10 mL Syringe IVFLUSH SCH ×3 (01:10→15:38)
[2016-09-24 02:58] VITALS: BP 136/93; PULSE 115; RESP 22; O2SAT 90
[2016-09-24] MEDS: 0.9% Sodium Chloride 1,000 ML IV SCH ×2 (06:19→15:39)
--- NOTE | 2016-09-24 07:57 | NUR ---
Orientation Pt. oriented to self only. Increased confusion and poor ability to re-orient this shift. Pt. restless, attempted to climb oob on several occasions, incontinent, and picking at splint on L arm. Indicates [facility] Can you give me my pants". Redirected on the need to remain in bed and that he would be staying at this hospital with plans for surgery here. VSS. No Tele. Report given to on coming RN.
[2016-09-24 09:34] VITALS: BP 147/104; PULSE 77; RESP 28; O2SAT 93
[2016-09-24] MEDS: Pantoprazole 20 mg ER24 Tablet PO SCH (09:41)
[2016-09-24] MEDS: Diltiazem CD 180 mg ER24 Capsule PO SCH (09:41)
--- NOTE | 2016-09-24 10:37 | PCM.PNORTH ---
Subjective Date of Service: Sep 24, 2016 Visit Information: Reason for Visit Sob/Pneumonia/Acs/Chf Surgery/Surgery Date Post-Op Day # Date of Admission: Aug 31, 2016 at 19:38 Hospital Day # Subjective Patient seems more lucid today than when previously examined. Able to hold a conversation. Expresses concerns that he is in pain and cannot use his arm. He frequently asked about when his surgery would be and was able to repeat back the day. Postop General: No Shortness of Breath, No Chest Pain Pain Management: PO Objective Exam Objective Patient sitting up in bed. Splint is in place on the left upper extremity with a sleeve over the splint to stop patient from picking at it. Arm is down and hand is swollen. Ecchymosis proximal to the splint throughout the arm. Area of swelling also appreciated near ecchymosis. Able to abd/adduct and extend fingers, able to make a partial fist. Vital Signs and I/O Vital Sign - Last Date Time Temp Pulse Resp B/P Pulse Ox O2 Delivery O2 Flow Rate FiO2 09/24/16 09:47 Supplement Oxygen 09/24/16 09:34 36.4 77 28 147/104 93 2.00 Intake and Output 09/23/16 09/23/16 09/24/16 Cumulative From/Thru 15:00 23:00 07:00 08/31/16 15:43 - 09/24/16 06:39 Intake Total 1086 ml 50 ml 97289 ml Output Total 600 ml 100 ml 37314 ml Balance 486 ml -50 ml 5853 ml Intake Oral 220 ml 50 ml 76727 ml IV Total 866 ml 8499 ml Output Urine Total 600 ml 100 ml 05220 ml Stool Total 60 ml Drainage Total 50 ml # Voids 2 27 # Bowel Movements 35 Lab & Micro Results Microbiology 08/31/16 Blood Culture - Final, Complete NO GROWTH AFTER 5 DAYS 09/10/16 Campylobacter (PCR) - Final, Complete Not Detected 09/10/16 Clostridium difficile Toxin A&B (M) - Final, Complete Not Detected 09/10/16 Plesiomonas shigelloides (PCR) - Final, Complete Not Detected 09/10/16 Salmonella (PCR)(BURT) - Final, Complete Not Detected 09/10/16 Yersinia enterocolitica (PCR) - Final, Complete Not Detected 09/10/16 Vibrio Species (PCR) - Final, Complete Not Detected 09/10/16 Vibrio Cholerae (PCR) - Final, Complete Not Detected 09/10/16 Enteroaggregative E. coli (PCR) - Final, Complete Not Detected 09/10/16 Enteropathogenic E. coli (PCR) - Final, Complete Not Detected 09/10/16 Enterotoxigenic E. coli (PCR) - Final, Complete Not Detected 09/10/16 E. coli Shiga-like Toxin (PCR) - Final, Complete Not Detected 09/10/16 Escherichia coli 0157 (PCR) - Final, Complete Not Detected 09/10/16 Enteroinvasive E. coli/Shigella PCR - Final, Complete Not Detected 09/10/16 Cryptosporidium (PCR) - Final, Complete Not Detected 09/10/16 Cyclospora cayetanensis (PCR) - Final, Complete Not Detected 09/10/16 Entamoeba histolytica (PCR) - Final, Complete Not Detected 09/10/16 Giardia lamblia (PCR) - Final, Complete Not Detected 09/10/16 Adenovirus Type F 40/41 (PCR) - Final, Complete Not Detected 09/10/16 Astrovirus (PCR) - Final, Complete Not Detected 09/10/16 Norovirus (PCR) - Final, Complete Not Detected 09/10/16 Rotavirus A (PCR) - Final, Complete Not Detected 09/10/16 Sapovirus I/II/IV/V (PCR) - Final, Complete 09/11/16 Adenovirus DNA (PCR) - Final, Complete Not Detected 09/11/16 Coronavirus 229E PCR - Final, Complete Not Detected 09/11/16 Coronavirus HKU1 PCR - Final, Complete Not Detected 09/11/16 Coronavirus NL63 PCR - Final, Complete Not Detected 09/11/16 Coronavirus OC43 PCR - Final, Complete Not Detected 09/11/16 Influenza Type A (PCR) - Final, Complete Not Detected 09/11/16 Influenza Type B (PCR) - Final, Complete Not Detected 09/11/16 Human Metapneumovirus (PCR) (BURT) - Final, Complete Not Detected 09/11/16 Rhinovirus (PCR)(BURT) - Final, Complete Not Detected 09/11/16 Parainfluenza Virus Type 1 (PCR) - Final, Complete Not Detected 09/11/16 Parainfluenza Virus Type 2 (PCR) - Final, Complete Not Detected 09/11/16 Parainfluenza Virus Type 3 (PCR) - Final, Complete Not Detected 09/11/16 Parainfluenza Virus Type 4 (NAAT) - Final, Complete Not Detected 09/11/16 Respiratory Syncytial Virus (PCR)TX - Final, Complete Not Detected 09/11/16 Chlamydia pneumoniae (PCR) - Final, Complete Not Detected 09/11/16 Mycoplasma pneumoniae DNA Detection - Final, Complete 08/31/16 Urine Culture - Final, Complete Proteus Mirablis Esbl [employer] Inventory Clerk Mixed Urogenital Poonam 09/06/16 Gram Stain - Final, Complete 09/06/16 Culture & Sensitivity - Final, Complete Carbapenem R Klebsiella Spp. With Normal Poonam 09/06/16 Anaerobic Culture - Final, Complete No anaerobes isolated Result Diagram: 09/21/16 1200 09/21/16 1200 Extremities: Distal Pulses Palpable, Warm, No Edema, Cyanotic Postop Sensory Motor: Distal Motor Intact, Movement in Fingers, Distal Sensation Intact SURGICAL WOUND : Wound Location/Description Splint is intact. Drain Location Body Site: Abdomen Wound Drainage Type: ostomy Assessment & Plan Impression 1. Old clavicle fracture on the left side 2. Left humeral neck fracture in adequate position 3. Displaced left olecranon fracture Problems: Plan Weightbearing: Nonweightbearing with the LUE. DVT prophylaxis: Currently taking Heparin. Discussed with hospitalist and he will discontinue prior to surgery. Physical therapy for transfers, progressive ambulation, strengthening Immobilization: Splint should stay intact until patient is brought to the OR. Analgesia: Tylenol. Please ice above the splint at the shoulder to help decrease swelling. If tolerated, elevation with a pillow beneath the hand or elbow will help decrease swelling as well. Tentative plan for surgery on Monday. Currently on the schedule for 345pm. Surgeon will be out of town until that time and will likely be unable to complete a consent until he is back in town. VTE Prophylaxis: Theraputic Anticoag with Warfarin Resuscitation Status: CPR: Attempt Resuscitation Elina Fung PA-C Sep 24, 2016 10:37
--- NOTE | 2016-09-24 13:55 | PCM.PNMED ---
Subjective Date of Service Sep 24, 2016 Subjective He is doing fairly well. Is below more restless today trying to climb out of bed several times. He does know where he is, [place]. He knows what year it is, 2016. He is having some elbow pain but states he is doing relatively okay with Tylenol. He denies any chest pain or shortness of breath. No abdominal pain. He is feeling very anxious but he does understand with anxiety medication makes him very confused. No other overnight events noted. Exam Vital Signs Vital Sign - Last Date Time Temp Pulse Resp B/P Pulse Ox O2 Delivery O2 Flow Rate FiO2 09/24/16 09:47 Supplement Oxygen 09/24/16 09:34 36.4 77 28 147/104 93 2.00 Intake and Output 09/23/16 09/23/16 09/24/16 Cumulative From/Thru 15:00 23:00 07:00 08/31/16 15:43 - 09/24/16 06:39 Intake Total 1086 ml 50 ml 49288 ml Output Total 600 ml 100 ml 84271 ml Balance 486 ml -50 ml 5853 ml Intake Oral 220 ml 50 ml 17556 ml IV Total 866 ml 8499 ml Output Urine Total 600 ml 100 ml 74915 ml Stool Total 60 ml Drainage Total 50 ml # Voids 2 27 # Bowel Movements 35 Exam Alert and oriented -3, no distress. Fluent speech Anicteric sclera. Lungs are clear with normal rate and effort Heart is regular without murmur gallop or rub Abdomen soft nontender, flat Extremities are free of edema. Skin is notable for multiple ecchymosis over both forearms. His right foot IV. His left arm is in a splint of the elbow. He has good left arm radial pulse. IVs and Medications Medications Reviewed: Medications were reviewed in detail Lab and Diagnostics Result Diagram: 09/21/16 1200 09/21/16 1200 X-Rays, CTs and MRIs CT CHEST WITHOUT CONTRAST IMPRESSION: Small to moderate bilateral pleural effusions with adjacent atelectasis. Additional patchy consolidation in the left lung base possibly pneumonia or aspiration. Please correlate clinically. Mild cardiomegaly. Circumferential lower chest wall edema, possibly third spacing/anasarca. Please correlate clinically. Dictated by: Rizwan Orta M.D. on 08/31/2016 at 18:13 X-RAY CHEST ONE VIEW, PORTABLE IMPRESSION: The bibasilar pneumonia, left greater than right, possible mild or early pneumonia right upper lobe. 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 Dictated by: William Baker M.D. on 08/31/2016 at 16:23 PROCEDURE: X-RAY CHEST, TWO VIEWS ([id number]) IMPRESSION: Retrocardiac left lower lobe pneumonia, while mild right upper lobe scarring. Dictated by: William Baker M.D. on 09/10/2016 at 17:23 Approved by: William Baker M.D. on 09/10/2016 at 17:23 PROCEDURE: CT BRAIN WITHOUT CONTRAST ([id number]) IMPRESSION: No CT evidence of acute intracranial pathology. Dictated by: Antwon Miller M.D. on 09/17/2016 at 13:33 PROCEDURE: X-RAY LEFT SHOULDER, MINIMUM TWO VIEWS ([id number]) IMPRESSION: 1. Mildly impacted acute fracture of the left humeral neck. 2. Nonacute nonunited lateral left clavicle fracture. 3. Severe left glenohumeral joint degeneration. Dictated by: Enoch Zhu M.D. on 09/18/2016 at 18:25 PROCEDURE: X-RAY LEFT ELBOW, TWO VIEWS ([id number]) IMPRESSION: Mildly displaced comminuted intra-articular fracture of the olecranon. Dictated by: Enoch Zhu M.D. on 09/18/2016 at 18:27 . Cardiac Echo Impressions Interpretation Summary Left ventricular systolic function is normal without focal wall motion abnormalities. The ejection fraction is estimated to be 60-65%. LVEF has not changed since priro study. Left ventricular wall thickness is mild-moderately increased. The right ventricle is at the upper limits of normal in size. The right ventricular systolic function is normal. Right ventricular systolic pressure is estimated to be 20 mmHg plus the clinically estimated CVP which cannot be estimated on this exam. The left atrium is severely dilated. The right atrium is severely dilated. There is mild mitral regurgitation. There is no other significant valvular heart disease. The aortic root is mildly dilated. The ascending aorta is mildly enlarged. The aortic arch is mildly enlarged. E/E' med: 15.1 Assessment & Plan #. Severe metabolic encephalopathy, relatively new and slowly improving.. We will continue to hold opiates and benzodiazepines. Tylenol. To be relatively effective at treating his pain. #. Left humeral and olecranon fracture, acute. - Orthopedics consult, Dr. Garcia contacted recommend surgery for 09/21/16. No change to this plan. - Nothing by mouth after midnight - Anesthesia requested repeat echocardiogram and hydration to improve creatinine. Unfortunately patient previously refused echocardiogram. Earlier this spring he had no systolic congestive heart failure, although he reportedly had DVT/PE since that time. - Pain management as needed, we are limiting his pain controlled with Tylenol with seems to be relatively ineffective. Discussed with orthopedics yesterday and we are preparing for thank you operative fixation on Monday. #. Acute kidney injury. Not present on admission and improving. We will recheck creatinine today. Otherwise No changes. We will continue fluids at 75 miles an hour and follow creatinine. #. Acute on chronic anxiety, History of PTSD and depression. Active and stable. Patient feels significantly anxious and claustrophobic. Processes limited trust with care providers at [facility]. Will leave the door open. We do not have accurate medication records and he claims [facility] give him twice daily lorazepam. He seems intermittently somewhat sedated on this regimen - Lorazepam 1 mg twice a day, continue for now, if no encephalopathy - Resume sertraline. We will stop lorazepam as patient appears to be encephalopathic. 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 #. Acute exacerbation of chronic diastolic congestive heart failure, present on admission, Resolved. At time of admission Patient has noted orthopnea, exertional dyspnea and lower extremity edema over the last week. BNP is also significantly elevated at 25, 000. Clinical impression was acute diastolic CHF due to atrial fibrillation with RVR. He subsequently has developed poor by mouth fluid intake and rising serum creatinine - Currently holding his previous po Lasix 40 mg daily. He has diastolic CHF with good LVEF and no hypertension. Not clear that this needs to be resumed. - Daily BMP, intake and output no change to his daily dosing of medications. His IV fluids are currently at 75 miles an hour as he is eating very little. No evidence of decompensation. #. Falling episodes, acute on chronic. Stable. No recent falls in last 2 days. Several episodes during this inpatient hospitalization. Most recently with trauma and fracture of left arm. He is left-handed. - I have advised patient he must consider SNF placement due to his inability to manage at home even with significant assistance. A long conversation with the POA and have really discussed the fact that she not be able to discharge home safely and will require fpc facility care. #. Muscular deconditioning, not present on admission. Patient does not seem able to safely ambulate short distances. He is anticoagulated. Fall on did not result in brain bleeding. He refuses to consider discharge to SNF - Continue physical therapy after patient has been okayed by orthopedics - Plan discharge to SNF after operative repair of elbow fracture. #. Recent history of pulmonary embolism, present on admission, active. We do not have records of this diagnosis. Patient's INR was subtherapeutic on admission. - Warfarin management per pharmacy. This is therapeutic, no change in current therapy. - Currently holding warfarin in advance of surgery, we will need to resume in the next day if he is not going to surgery. Will also consider unfractionated heparin if there is much more delayed. #. Chronic Atrial fibrillation with acute rapid ventricular response, present on admission, improved and now rate controlled. Active and stable. Cause of escape from rate control is unclear. Possibly related to worsened congestive heart failure or urinary infection. - Telemetry monitoring. - Continue diltiazem at current dose. Continue warfarin. No further changes. #. Troponin elevation, present on admission. Resolved. Troponin level 0.042- 0.066 with no clear temporal pattern to suggest coronary ischemia, even with heart rate greater than 160. - Troponin elevation likely secondary to demand ischemia from rapid rate. No further workup. #. ESBL proteus UTI, present on admission. Resolved. - No clinical symptoms aside from generalized weakness. He has history of relatively asymptomatic infections in the past. - Ertapenem initiated on 09/02/16, course completed on 09/15/16. Now discontinued - Infectious disease consult by Dr. Summers. There is one additional culture revealing ertapenem resistant species. Infectious disease is aware. #. Acute on chronic respiratory failure with hypercarbia and hypoxia, present on admission, Resolved. At time of admission, likely secondary to diastolic CHF from rapid A. fib. Moderate sized right sided pleural effusions on CT. Patient reports a recent thoracentesis at [facility] in [place]. Procalcitonin negative. - Continue his usual Ipratropium every 4 hours while awake, levalbuterol every 2 hours as needed for shortness of breath #. Diarrhea, not present on admission. Likely antibiotic related. No suspicious features to suggest C. difficile. Seems to be resolving now that antibiotic course is finished. - Resolved #. Acute on chronic anemia. not present on admission. Active and stable. Recent GI bleed and surgery at the [facility] within the last 2 mo. Hgb on admit 11.4, - 10.1 to 10.3 on repeat. Stool guiac negative. LDH, haptoglobin, and peripheral smear ordered. No evidence of GI blood loss anemia at this time. - Follow clinically #. Chronic kidney disease stage IV, POA and stable -Appears to be patient's baseline. -Continue to monitor #. Enterocutaneous fistula, chronic. - Continue ostomy care CODE STATUS: Full code VTE Prophylaxis: Theraputic Anticoag with Warfarin VTE Mechanical Devices: Intermittant Pneumatic CD Resuscitation Status: CPR: Attempt Resuscitation Joel Mckenna MD Sep 24, 2016 13:55
[2016-09-24 14:44] LABS: Mean Corpuscular Hemoglobin 30.3 pg (27.0-35.0); Mean Corpuscular Volume 92.7 fL (81-100)
[2016-09-24 16:29] LABS: INR 1.75 ratio
[2016-09-24 16:30] VITALS: BP 145/96; PULSE 136; RESP 24; O2SAT 90
[2016-09-24 21:13] VITALS: BP 168/105; PULSE 85; RESP 20; O2SAT 92
[2016-09-25] MEDS: Sodium Chloride LOK Flush 10 mL Syringe IVFLUSH SCH ×3 (00:23→15:53)
[2016-09-25 04:10] VITALS: BP 133/98; PULSE 76; RESP 20; O2SAT 89
--- NOTE | 2016-09-25 06:34 | NUR ---
Confusion/Agitation Pt. oriented to self only. Observing increase in hallucinations, word salad, and agitation throughout shift. Agitation and restlessness demonstrated with constant picking at items within reach, throwing article within reach and grabbing at staff. Pt. removed ostomy (x3), clothing, and d/cd IV in foot. Has not demonstrated any significant periods of rest, refused meals, and oral intake. Consistent attempts toward reorientation, without resolve. MD notified (Dr. Pierre ), order received to apply soft restraints with PO dose of Seroquil (12.5mg). Restraints applied @ 0015 Q2 restraint observation documented. VSS. No Tele.
[2016-09-25 07:44] VITALS: BP 139/91; PULSE 122; RESP 40; O2SAT 90
[2016-09-25] MEDS: Pantoprazole 20 mg ER24 Tablet PO SCH (07:54)
[2016-09-25] MEDS: Diltiazem CD 180 mg ER24 Capsule PO SCH (07:54)
--- NOTE | 2016-09-25 08:20 | NUR ---
mentation/activity/restraints pt continues to be confused, oriented only to self. pt talking to self, about various topics. pt continues to be aggressive towards staff, pinching and gripping staff. pt appears very anxious with furrowed brow and tachypnea, and increase hr. Attempted to reorient patient after placing pt's external hearing aid on. pt opened eyes and followed directions to take water and meds. pt able to verbalize moderate abdominal pain, prn tylenol given. pt restless, scratching at pillow with left hand, and pulling at ostomy pouch. Attempted to direct patient in the necessity of the pouch. continuing bilateral wrist restraints. care continues.
[2016-09-25] MEDS: 0.9% Sodium Chloride 1,000 ML IV SCH (10:32)
--- NOTE | 2016-09-25 11:04 | PCM.PNORTH ---
Subjective Date of Service: Sep 25, 2016 Visit Information: Reason for Visit Sob/Pneumonia/Acs/Chf Surgery/Surgery Date Post-Op Day # Date of Admission: Aug 31, 2016 at 19:38 Hospital Day # Subjective Patient only moans at me today and will not give yes or no answers or follow instructions. Pain Management: PO Objective Exam Objective Patient laying in bed in restraints.Splint on, however wrist is in restraints so unlikely that he has remained nonweightbearing Vital Signs and I/O Vital Sign - Last Date Time Temp Pulse Resp B/P Pulse Ox O2 Delivery O2 Flow Rate FiO2 09/25/16 08:04 Supplement Oxygen 09/25/16 07:44 122 40 139/91 90 09/25/16 04:10 36.8 09/24/16 21:13 1.00 Intake and Output 09/24/16 09/24/16 09/25/16 Cumulative From/Thru 15:00 23:00 07:00 08/31/16 15:43 - 09/25/16 05:26 Intake Total 1723 ml 890 ml 54102 ml Output Total 450 ml 200 ml 23487 ml Balance 1273 ml 690 ml 7816 ml Intake Oral 300 ml 100 ml 32133 ml IV Total 1423 ml 790 ml 91852 ml Output Urine Total 450 ml 200 ml 42875 ml Stool Total 60 ml Drainage Total 50 ml # Voids 2 29 # Bowel Movements 35 Lab & Micro Results Laboratory Tests Test 09/24/16 14:30 09/24/16 15:50 White Blood Count 10.0th/mm3 (3.8-10.1) Red Blood Count 3.27mil/mm3 (4.40-5.80) Hemoglobin 9.9g/dL (13.8-17.2) Hematocrit 30.3% (41.0-50.0) Mean Corpuscular Volume 92.7fL (81-100) Mean Corpuscular Hemoglobin 30.3pg (27.0-35.0) Mean Corpuscular Hemoglobin Concent 32.7% (32.0-37.0) Red Cell Distribution Width 13.3% (12.3-15.4) Platelet Count 470bil/L (150-400) Sodium Level 137mEq/L (134-144) Potassium Level 3.7mEq/L (3.5-5.2) Chloride Level 99mEq/L (97-108) Carbon Dioxide Level 22mmol/L (18-29) Blood Urea Nitrogen 20mg/dL (8-27) Creatinine 1.39mg/dL (0.76-1.27) Estimat Glomerular Filtration Rate 53mL/min (>59) Glucose Level 124mg/dL (60-99) Calcium Level 8.4mg/dL (8.5-10.1) Prothrombin Time 18.9sec (8.1-12.5) Prothromb Time International Ratio 1.75ratio Microbiology 08/31/16 Blood Culture - Final, Complete NO GROWTH AFTER 5 DAYS 09/10/16 Campylobacter (PCR) - Final, Complete Not Detected 09/10/16 Clostridium difficile Toxin A&B (M) - Final, Complete Not Detected 09/10/16 Plesiomonas shigelloides (PCR) - Final, Complete Not Detected 09/10/16 Salmonella (PCR)(BURT) - Final, Complete Not Detected 09/10/16 Yersinia enterocolitica (PCR) - Final, Complete Not Detected 09/10/16 Vibrio Species (PCR) - Final, Complete Not Detected 09/10/16 Vibrio Cholerae (PCR) - Final, Complete Not Detected 09/10/16 Enteroaggregative E. coli (PCR) - Final, Complete Not Detected 09/10/16 Enteropathogenic E. coli (PCR) - Final, Complete Not Detected 09/10/16 Enterotoxigenic E. coli (PCR) - Final, Complete Not Detected 09/10/16 E. coli Shiga-like Toxin (PCR) - Final, Complete Not Detected 09/10/16 Escherichia coli 0157 (PCR) - Final, Complete Not Detected 09/10/16 Enteroinvasive E. coli/Shigella PCR - Final, Complete Not Detected 09/10/16 Cryptosporidium (PCR) - Final, Complete Not Detected 09/10/16 Cyclospora cayetanensis (PCR) - Final, Complete Not Detected 09/10/16 Entamoeba histolytica (PCR) - Final, Complete Not Detected 09/10/16 Giardia lamblia (PCR) - Final, Complete Not Detected 09/10/16 Adenovirus Type F 40/41 (PCR) - Final, Complete Not Detected 09/10/16 Astrovirus (PCR) - Final, Complete Not Detected 09/10/16 Norovirus (PCR) - Final, Complete Not Detected 09/10/16 Rotavirus A (PCR) - Final, Complete Not Detected 09/10/16 Sapovirus I/II/IV/V (PCR) - Final, Complete 09/11/16 Adenovirus DNA (PCR) - Final, Complete Not Detected 09/11/16 Coronavirus 229E PCR - Final, Complete Not Detected 09/11/16 Coronavirus HKU1 PCR - Final, Complete Not Detected 09/11/16 Coronavirus NL63 PCR - Final, Complete Not Detected 09/11/16 Coronavirus OC43 PCR - Final, Complete Not Detected 09/11/16 Influenza Type A (PCR) - Final, Complete Not Detected 09/11/16 Influenza Type B (PCR) - Final, Complete Not Detected 09/11/16 Human Metapneumovirus (PCR) (BURT) - Final, Complete Not Detected 09/11/16 Rhinovirus (PCR)(BURT) - Final, Complete Not Detected 09/11/16 Parainfluenza Virus Type 1 (PCR) - Final, Complete Not Detected 09/11/16 Parainfluenza Virus Type 2 (PCR) - Final, Complete Not Detected 09/11/16 Parainfluenza Virus Type 3 (PCR) - Final, Complete Not Detected 09/11/16 Parainfluenza Virus Type 4 (NAAT) - Final, Complete Not Detected 09/11/16 Respiratory Syncytial Virus (PCR)DE - Final, Complete Not Detected 09/11/16 Chlamydia pneumoniae (PCR) - Final, Complete Not Detected 09/11/16 Mycoplasma pneumoniae DNA Detection - Final, Complete 08/31/16 Urine Culture - Final, Complete Proteus Mirablis Esbl [employer] Mixed Urogenital Poonam 09/06/16 Gram Stain - Final, Complete 09/06/16 Culture & Sensitivity - Final, Complete Carbapenem R Klebsiella Spp. With Normal Poonam 09/06/16 Anaerobic Culture - Final, Complete No anaerobes isolated Result Diagram: 09/24/16 1430 09/24/16 1430 Extremities: Distal Pulses Palpable, No Compartment Syndrom Noted Postop Sensory Motor: Distal Motor Intact, Movement in Fingers SURGICAL WOUND : Drain Location Body Site: Abdomen Wound Drainage Type: ostomy Assessment & Plan Impression 1. Old clavicle fracture on the left side 2. Left humeral neck fracture in adequate position 3. Displaced left olecranon fracture Problems: Plan Patient is in restraints today so it is very unlikely that he has been nonweightbearing through the extremity. However, patient has repeatedly tried to get out bed so restraints were placed. Weightbearing: Nonweightbearing with the LUE. DVT prophylaxis: Currently taking Heparin. Discussed with hospitalist and he will discontinue prior to surgery. Physical therapy for transfers, progressive ambulation, strengthening Immobilization: Splint should stay intact until patient is brought to the OR. Analgesia: Tylenol. Please ice above the splint at the shoulder to help decrease swelling. If tolerated, elevation with a pillow beneath the hand or elbow will help decrease swelling as well. Tentative plan for surgery on Monday. Currently on the schedule for 345pm. Surgeon will be out of town until that time and will likely be unable to complete a consent until he is back in town. VTE Prophylaxis: Theraputic Anticoag with Warfarin Resuscitation Status: CPR: Attempt Resuscitation Elina Fung PA-C Sep 25, 2016 11:03
--- NOTE | 2016-09-25 11:49 | PCM.PNMED ---
Subjective Date of Service Sep 25, 2016 Subjective Patient is very confused today. Able to motor only a couple of words. He required restraints last night. He lost his IV and will have another one placed. He cannot really answer any questions regarding subjective. Overnight events include ongoing delirium, agitation and requiring restraints. Exam Vital Signs Vital Sign - Last Date Time Temp Pulse Resp B/P Pulse Ox O2 Delivery O2 Flow Rate FiO2 09/25/16 08:04 Supplement Oxygen 09/25/16 07:44 122 40 139/91 90 09/25/16 04:10 36.8 09/24/16 21:13 1.00 Intake and Output 09/24/16 09/24/16 09/25/16 Cumulative From/Thru 15:00 23:00 07:00 08/31/16 15:43 - 09/25/16 05:26 Intake Total 1723 ml 890 ml 47627 ml Output Total 450 ml 200 ml 55765 ml Balance 1273 ml 690 ml 7816 ml Intake Oral 300 ml 100 ml 99477 ml IV Total 1423 ml 790 ml 55869 ml Output Urine Total 450 ml 200 ml 24103 ml Stool Total 60 ml Drainage Total 50 ml # Voids 2 29 # Bowel Movements 35 Exam [place], monitoring. Riding. He denies any pain. He has somewhat slurred speech. Anicteric sclera. Lungs are clear with normal rate and effort Heart is irregular without murmur gallop or rub Abdomen soft nontender, flat with colostomy. He keeps pulling the bag off. Extremities are free of edema. Skin is free of rash or lesions. Lab and Diagnostics Result Diagram: 09/24/16 1430 09/24/16 1430 X-Rays, CTs and MRIs CT CHEST WITHOUT CONTRAST IMPRESSION: Small to moderate bilateral pleural effusions with adjacent atelectasis. Additional patchy consolidation in the left lung base possibly pneumonia or aspiration. Please correlate clinically. Mild cardiomegaly. Circumferential lower chest wall edema, possibly third spacing/anasarca. Please correlate clinically. Dictated by: Rizwan Orta M.D. on 08/31/2016 at 18:13 X-RAY CHEST ONE VIEW, PORTABLE IMPRESSION: The bibasilar pneumonia, left greater than right, possible mild or early pneumonia right upper lobe. 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 Dictated by: William Baker M.D. on 08/31/2016 at 16:23 PROCEDURE: X-RAY CHEST, TWO VIEWS ([id number]) IMPRESSION: Retrocardiac left lower lobe pneumonia, while mild right upper lobe scarring. Dictated by: William Baker M.D. on 09/10/2016 at 17:23 Approved by: William Baker M.D. on 09/10/2016 at 17:23 PROCEDURE: CT BRAIN WITHOUT CONTRAST ([id number]) IMPRESSION: No CT evidence of acute intracranial pathology. Dictated by: Antwon Miller M.D. on 09/17/2016 at 13:33 PROCEDURE: X-RAY LEFT SHOULDER, MINIMUM TWO VIEWS ([id number]) IMPRESSION: 1. Mildly impacted acute fracture of the left humeral neck. 2. Nonacute nonunited lateral left clavicle fracture. 3. Severe left glenohumeral joint degeneration. Dictated by: Enoch Zhu M.D. on 09/18/2016 at 18:25 PROCEDURE: X-RAY LEFT ELBOW, TWO VIEWS ([id number]) IMPRESSION: Mildly displaced comminuted intra-articular fracture of the olecranon. Dictated by: Enoch Zhu M.D. on 09/18/2016 at 18:27 . Cardiac Echo Impressions Interpretation Summary Left ventricular systolic function is normal without focal wall motion abnormalities. The ejection fraction is estimated to be 60-65%. LVEF has not changed since priro study. Left ventricular wall thickness is mild-moderately increased. The right ventricle is at the upper limits of normal in size. The right ventricular systolic function is normal. Right ventricular systolic pressure is estimated to be 20 mmHg plus the clinically estimated CVP which cannot be estimated on this exam. The left atrium is severely dilated. The right atrium is severely dilated. There is mild mitral regurgitation. There is no other significant valvular heart disease. The aortic root is mildly dilated. The ascending aorta is mildly enlarged. The aortic arch is mildly enlarged. E/E' med: 15.1 Assessment & Plan #. Severe metabolic encephalopathy, relatively new and active. We will continue to hold opiates and benzodiazepines. Tylenol. To be relatively effective at treating his pain. He appears to require something to decrease his night activity, will try at bedtime Seroquel. #. Left humeral and olecranon fracture, acute and active. - Orthopedics consult, Dr. Garcia contacted recommend surgery for 09/21/16. No change to this plan. - Nothing by mouth after midnight - Anesthesia requested repeat echocardiogram and hydration to improve creatinine. Unfortunately patient previously refused echocardiogram. Earlier this spring he had no systolic congestive heart failure, although he reportedly had DVT/PE since that time. - Pain management as needed, we are limiting his pain controlled with Tylenol with seems to be relatively ineffective. Discussed with orthopedics and we are preparing for thank you operative fixation on Monday. #. Acute kidney injury. Not present on admission and improving. Otherwise No changes. We will continue fluids at 75 miles an hour and follow creatinine. #. Atrial fibrillation, POA and active. The patient will require resumption of blood thinners. Given proximity to surgery and his therapeutic INR just up until 2 days ago we will possibly hold until postoperative phase and then resume anticoagulation. Fortunately patient continues to be a severe fall risk and this is a relative contraindication to anticoagulation. #. Acute on chronic anxiety, History of PTSD and depression. Active and stable. Patient feels significantly anxious and claustrophobic. Processes limited trust with care providers at [facility]. Will leave the door open. We do not have accurate medication records and he claims his [facility] give him twice daily lorazepam. He seems intermittently somewhat sedated on this regimen - Lorazepam 1 mg twice a day, continue for now, if no encephalopathy - Resume sertraline. We will stop lorazepam as patient appears to be encephalopathic. 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 #. Acute exacerbation of chronic diastolic congestive heart failure, present on admission, Resolved. At time of admission Patient has noted orthopnea, exertional dyspnea and lower extremity edema over the last week. BNP is also significantly elevated at 25, 000. Clinical impression was acute diastolic CHF due to atrial fibrillation with RVR. He subsequently has developed poor by mouth fluid intake and rising serum creatinine - Currently holding his previous po Lasix 40 mg daily. He has diastolic CHF with good LVEF and no hypertension. Not clear that this needs to be resumed. - Daily BMP, intake and output no change to his daily dosing of medications. His IV fluids are currently at 75 miles an hour as he is eating very little. No evidence of decompensation. #. Falling episodes, acute on chronic. Stable. No recent falls in last 2 days. Several episodes during this inpatient hospitalization. Most recently with trauma and fracture of left arm. He is left-handed. - I have advised patient he must consider SNF placement due to his inability to manage at home even with significant assistance. A long conversation with the POA and have really discussed the fact that she not be able to discharge home safely and will require [facility] facility care. #. Muscular deconditioning, not present on admission. Patient does not seem able to safely ambulate short distances. He is anticoagulated. Fall on did not result in brain bleeding. He refuses to consider discharge to SNF - Continue physical therapy after patient has been okayed by orthopedics - Plan discharge to SNF after operative repair of elbow fracture. #. Recent history of pulmonary embolism, present on admission, active. We do not have records of this diagnosis. Patient's INR was subtherapeutic on admission. - Warfarin management per pharmacy. This is therapeutic, no change in current therapy. - Currently holding warfarin in advance of surgery, we will need to resume in the next day if he is not going to surgery. Will also consider unfractionated heparin if there is much more delayed. #. Troponin elevation, present on admission. Resolved. Troponin level 0.042- 0.066 with no clear temporal pattern to suggest coronary ischemia, even with heart rate greater than 160. - Troponin elevation likely secondary to demand ischemia from rapid rate. No further workup. #. ESBL proteus UTI, present on admission. Resolved. - No clinical symptoms aside from generalized weakness. He has history of relatively asymptomatic infections in the past. - Ertapenem initiated on 09/02/16, course completed on 09/15/16. Now discontinued - Infectious disease consult by Dr. Summers. There is one additional culture revealing ertapenem resistant species. Infectious disease is aware. #. Acute on chronic respiratory failure with hypercarbia and hypoxia, present on admission, Resolved. At time of admission, likely secondary to diastolic CHF from rapid A. fib. Moderate sized right sided pleural effusions on CT. Patient reports a recent thoracentesis at [facility] in [place]. Procalcitonin negative. - Continue his usual Ipratropium every 4 hours while awake, levalbuterol every 2 hours as needed for shortness of breath #. Diarrhea, not present on admission. Likely antibiotic related. No suspicious features to suggest C. difficile. Seems to be resolving now that antibiotic course is finished. - Resolved #. Acute on chronic anemia. not present on admission. Active and stable. Recent GI bleed and surgery at the [facility] within the last 2 mo. Hgb on admit 11.4, - 10.1 to 10.3 on repeat. Stool guiac negative. LDH, haptoglobin, and peripheral smear ordered. No evidence of GI blood loss anemia at this time. - Follow clinically #. Chronic kidney disease stage IV, POA and stable -Appears to be patient's baseline. -Continue to monitor #. Enterocutaneous fistula, chronic. - Continue ostomy care #. CRE colonization around stoma, POA and active. The patient remains in double isolation. CODE STATUS: Full code VTE Prophylaxis: Theraputic Anticoag with Warfarin VTE Mechanical Devices: Intermittant Pneumatic CD Resuscitation Status: CPR: Attempt Resuscitation Joel Mckenna MD Sep 25, 2016 11:49
[2016-09-25 13:59] LABS: INR 2.65 ratio
[2016-09-25 15:38] VITALS: BP 142/92; PULSE 117; RESP 28; O2SAT 92
--- NOTE | 2016-09-25 17:55 | NUR ---
Social Work: Continued Discharge Planning/Multidisciplinary Rounds D: Pt discussed in multidisciplinary rounds. Pt is in bilateral restraints and on strict contact precautions. The patient's mentation continues to wax and wane. Sedative medications have been removed from the pt's medication list in attempts to orient the patient back to his baseline, but this has been unsuccessful thus far and medications continue to be adjusted. At this time, the patient's plan remains unknown. Treatment continues as allowed however there is no imminent plans for surgery and a discharge plan remains to be determined. Pt's doctors feel that pt is non decisional at this time. Treatment continues as allowed however there is no imminent plans for surgery and a discharge plan remains to be determined. A: Pt who lives alone in P: Evolving; no anticipated discharge plans at this time. NATALIE Davis Addendum: 09/25/16 at 1759 by LEV STANFORD SS Incorrect information above-- pt is anticipated to receive surgery on Tuesday 09/26. NATLAIE Davis
[2016-09-25 19:55] VITALS: BP 156/99; PULSE 125; RESP 30; O2SAT 94
[2016-09-26] MEDS: Sodium Chloride LOK Flush 10 mL Syringe IVFLUSH SCH ×4 (00:30→20:41)
[2016-09-26 03:50] VITALS: BP 142/92; PULSE 118; RESP 25; O2SAT 95
--- NOTE | 2016-09-26 05:11 | NUR ---
Nursing, NOC shift Patient is alert, oriented to self only. 1:1 sitter from [id number]. Bilat wrist restraints in place, + CSM checks. Patient remains restless, disoriented, pulling at linens, IV tubing, iliostomy. New RUE midline intact, kerlix dressing in place. Elevated on pillow. Patient denies pain/discomfort. Continues w/ isolation for colonized infection. NPO after midnight for planned LUE shoulder/elbow fx repair in AM. Accepted medications whole with sips of water. 0400: patient seems more alert, coherant. Cooperative w/ changing attends, assisting w/ bed mobility. Answering simple questions appropriately; continues to deny pain/discomfort at rest. Difficulty w/ turning side to side due to left shoulder fx/splint. NS @ 75cc/hour. Frequent safety/room checks thru the [facility]. Restraints removed [id number] for skin checks and ROM. Soft music playing on TV. CTM for changes.
[2016-09-26] MEDS: 0.9% Sodium Chloride 1,000 ML IV SCH ×2 (05:24→18:17)
[2016-09-26] MEDS: Pantoprazole 20 mg ER24 Tablet PO SCH (05:24)
[2016-09-26 08:00] VITALS: PULSE 76; RESP 22; O2SAT 92
[2016-09-26] MEDS: Diltiazem CD 180 mg ER24 Capsule PO SCH (08:30)
--- NOTE | 2016-09-26 14:13 | NUR ---
NUTRITION FOLLOW-UP: ASSESS: 76 YO male admitted with shortness of breath. Pt s/p fall with L humeral and olecranon fracture, plan for repair. Pt increasingly confused, requiring sitter. PO intake has been poor X 1 week. Pt NPO for procedure. PMHx: PTSD, anxiety and depression after being involved in combat in [place], bilateral cataracts, gastric bypass surgery, BPH, pyelonephritis, stage IV renal disease, RSV, enterocutaneous fistula requiring TPN. DIET: General, PB and crackers at 10, yogurt at 2, 2000 ML fluid restriction. PO intake 0-25%. LABS: Reviewed. Cr 1.41, Glu 102 MEDICATIONS: Reviewed. GI: 2 BM 09/21. SKIN: No issues reported. ANTHROPOMETRICS: Current Wt: 75.0 kg. BMI 32.3 kg/m2, Admit weight: 78.1 kg . ESTIMATED NEEDS Calories: 2869-0036 kcal/day (22-25 kcal/kg) Protein: 75-95 g/day (1.0-1.2 g/kg) NUTRITION DIAGNOSIS: 1) Inconsistent PO intake related to inability to consume sufficient energy, as evidenced by 0-100% trays, likely due to significant psychological issues.--PERSISTS. INTERVENTION: 1) Continue current diet with supplements of PB w/ crackers @ 10 am and yogurt @ 2 pm. MONITOR/EVALUATE: PO intake, weight, labs, GI status, POC, nutrition status. Follow per moderate nutrition risk guidelines.
--- NOTE | 2016-09-26 15:28 | PCM.PNMED ---
Subjective Date of Service Sep 26, 2016 Subjective Patients become more confused over the last several days. He is not able to eat really at this point. His surgery for left elbow repair was pushed back until tomorrow. The patient is not really able to participate mentally and any decisions at this point. He continues to decline. Review of systems and subjective are not obtainable due to his encephalopathy. No other overnight events noted. Exam Vital Signs Vital Sign - Last Date Time Temp Pulse Resp B/P Pulse Ox O2 Delivery O2 Flow Rate FiO2 09/26/16 08:00 Supplement Oxygen 09/26/16 08:00 36.9 76 22 92 2.00 Intake and Output 09/25/16 09/25/16 09/26/16 Cumulative From/Thru 15:00 23:00 07:00 08/31/16 15:43 - 09/26/16 05:17 Intake Total 200 ml 788 ml 79254 ml Output Total 73284 ml Balance 200 ml 788 ml 8804 ml Intake Oral 200 ml 0 ml 59093 ml IV Total 788 ml 47464 ml Output Urine Total 47651 ml Stool Total 60 ml Drainage Total 50 ml # Voids 2 2 33 # Bowel Movements 35 Exam Social pamphlet, monitoring. He appears to be relatively comfortable. Muffled and slurred speech. Anicteric sclera. Lungs are clear with normal rate and effort Heart is irregular without murmur gallop or rub Abdomen soft nontender, flat. Ostomy in place. Extremities are free of edema. Skin is free of rash or lesions. IVs and Medications Medications Reviewed: Medications were reviewed in detail Lab and Diagnostics Result Diagram: 09/24/16 1430 09/25/16 1330 X-Rays, CTs and MRIs CT CHEST WITHOUT CONTRAST IMPRESSION: Small to moderate bilateral pleural effusions with adjacent atelectasis. Additional patchy consolidation in the left lung base possibly pneumonia or aspiration. Please correlate clinically. Mild cardiomegaly. Circumferential lower chest wall edema, possibly third spacing/anasarca. Please correlate clinically. Dictated by: Rizwan Orta M.D. on 08/31/2016 at 18:13 X-RAY CHEST ONE VIEW, PORTABLE IMPRESSION: The bibasilar pneumonia, left greater than right, possible mild or early pneumonia right upper lobe. 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 Dictated by: William Baker M.D. on 08/31/2016 at 16:23 PROCEDURE: X-RAY CHEST, TWO VIEWS ([id number]) IMPRESSION: Retrocardiac left lower lobe pneumonia, while mild right upper lobe scarring. Dictated by: William Baker M.D. on 09/10/2016 at 17:23 Approved by: William Baker M.D. on 09/10/2016 at 17:23 PROCEDURE: CT BRAIN WITHOUT CONTRAST ([id number]) IMPRESSION: No CT evidence of acute intracranial pathology. Dictated by: Antwon Miller M.D. on 09/17/2016 at 13:33 PROCEDURE: X-RAY LEFT SHOULDER, MINIMUM TWO VIEWS ([id number]) IMPRESSION: 1. Mildly impacted acute fracture of the left humeral neck. 2. Nonacute nonunited lateral left clavicle fracture. 3. Severe left glenohumeral joint degeneration. Dictated by: Enoch Zhu M.D. on 09/18/2016 at 18:25 PROCEDURE: X-RAY LEFT ELBOW, TWO VIEWS ([id number]) IMPRESSION: Mildly displaced comminuted intra-articular fracture of the olecranon. Dictated by: Enoch Zhu M.D. on 09/18/2016 at 18:27 . Cardiac Echo Impressions Interpretation Summary Left ventricular systolic function is normal without focal wall motion abnormalities. The ejection fraction is estimated to be 60-65%. LVEF has not changed since priro study. Left ventricular wall thickness is mild-moderately increased. The right ventricle is at the upper limits of normal in size. The right ventricular systolic function is normal. Right ventricular systolic pressure is estimated to be 20 mmHg plus the clinically estimated CVP which cannot be estimated on this exam. The left atrium is severely dilated. The right atrium is severely dilated. There is mild mitral regurgitation. There is no other significant valvular heart disease. The aortic root is mildly dilated. The ascending aorta is mildly enlarged. The aortic arch is mildly enlarged. E/E' med: 15.1 Assessment & Plan #. Severe metabolic encephalopathy, relatively new and worsening. The patient continues to fail. He has no clear reason for his declining other than hospital delirium in general failure to thrive which has been progressive. At this point we will continue to support him. He is not safe to eat. We will begin discussions regarding the possibility of comfort care with his DPL age. #. Left humeral and olecranon fracture, acute and active. - Orthopedics consult, Dr. Garcia contacted recommend surgery for 09/21/16. No change to this plan. - Nothing by mouth after midnight - Anesthesia requested repeat echocardiogram and hydration to improve creatinine. Unfortunately patient previously refused echocardiogram. Earlier this spring he had no systolic congestive heart failure, although he reportedly had DVT/PE since that time. - Pain management as needed, we are limiting his pain controlled with Tylenol with seems to be relatively ineffective. The patient is operatively list tomorrow for an ORIF of the left elbow. We will discuss this with his OA today. It seems likely that there will be a preference to make the patient comfortable as he continues to decline and now cannot eat. #. Acute kidney injury. Not present on admission and stable. Continue IV fluids, check electrolytes and creatinine today. #. Atrial fibrillation, POA and active. The patient will require resumption of blood thinners. Given proximity to surgery and his therapeutic INR just up until 2 days ago we will possibly hold until postoperative phase and then resume anticoagulation. Fortunately patient continues to be a severe fall risk and this is a relative contraindication to anticoagulation. He will be given 1 dose of Lovenox today. However I do think he will is not a candidate for long- term anticoagulation. We will further discuss this with EtOH. #. Acute on chronic anxiety, History of PTSD and depression. Active and stable. Patient feels significantly anxious and claustrophobic. Processes limited trust with care providers at [facility]. Will leave the door open. We do not have accurate medication records and he claims [facility] him twice daily lorazepam. He seems intermittently somewhat sedated on this regimen - Lorazepam 1 mg twice a day, continue for now, if no encephalopathy - Resume sertraline. We will stop lorazepam as patient appears to be encephalopathic. 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 She was given Seroquel for general agitation and anxiety in hopes of making him more comfortable. We will continue for now. #. Acute exacerbation of chronic diastolic congestive heart failure, present on admission, Resolved. At time of admission Patient has noted orthopnea, exertional dyspnea and lower extremity edema over the last week. BNP is also significantly elevated at 25, 000. Clinical impression was acute diastolic CHF due to atrial fibrillation with RVR. He subsequently has developed poor by mouth fluid intake and rising serum creatinine - Currently holding his previous po Lasix 40 mg daily. He has diastolic CHF with good LVEF and no hypertension. Not clear that this needs to be resumed. - Daily BMP, intake and output no change to his daily dosing of medications. His IV fluids are currently at 75 miles an hour as he is eating very little. No evidence of decompensation. #. Falling episodes, acute on chronic. Stable. No recent falls in last 2 days. Several episodes during this inpatient hospitalization. Most recently with trauma and fracture of left arm. He is left-handed. - I have advised patient he must consider SNF placement due to his inability to manage at home even with significant assistance. A long conversation with the POA and have really discussed the fact that she not be able to discharge home safely and will require halfway facility care. #. Muscular deconditioning, not present on admission. Patient does not seem able to safely ambulate short distances. He is anticoagulated. Fall on did not result in brain bleeding. He refuses to consider discharge to SNF - Continue physical therapy after patient has been okayed by orthopedics - Plan discharge to SNF after operative repair of elbow fracture. #. Recent history of pulmonary embolism, present on admission, active. We do not have records of this diagnosis. Patient's INR was subtherapeutic on admission. - Warfarin management per pharmacy. This is therapeutic, no change in current therapy. - Currently holding warfarin in advance of surgery, we will need to resume in the next day if he is not going to surgery. Will also consider unfractionated heparin if there is much more delayed. #. Troponin elevation, present on admission. Resolved. Troponin level 0.042- 0.066 with no clear temporal pattern to suggest coronary ischemia, even with heart rate greater than 160. - Troponin elevation likely secondary to demand ischemia from rapid rate. No further workup. #. ESBL proteus UTI, present on admission. Resolved. - No clinical symptoms aside from generalized weakness. He has history of relatively asymptomatic infections in the past. - Ertapenem initiated on 09/02/16, course completed on 8/10/17. Now discontinued - Infectious disease consult by Dr. Summers. There is one additional culture revealing ertapenem resistant species. Infectious disease is aware. #. Acute on chronic respiratory failure with hypercarbia and hypoxia, present on admission, Resolved. At time of admission, likely secondary to diastolic CHF from rapid A. fib. Moderate sized right sided pleural effusions on CT. Patient reports a recent thoracentesis at [facility] in [place]. Procalcitonin negative. - Continue his usual Ipratropium every 4 hours while awake, levalbuterol every 2 hours as needed for shortness of breath #. Diarrhea, not present on admission. Likely antibiotic related. No suspicious features to suggest C. difficile. Seems to be resolving now that antibiotic course is finished. - Resolved #. Acute on chronic anemia. not present on admission. Active and stable. Recent GI bleed and surgery at the [facility] within the last 2 mo. Hgb on admit 11.4, - 10.1 to 10.3 on repeat. Stool guiac negative. LDH, haptoglobin, and peripheral smear ordered. No evidence of GI blood loss anemia at this time. - Follow clinically #. Chronic kidney disease stage IV, POA and stable -Appears to be patient's baseline. -Continue to monitor #. Enterocutaneous fistula, chronic. - Continue ostomy care #. CRE colonization around stoma, POA and active. The patient remains in double isolation. CODE STATUS: Full code We will have level care discussions with the patient's OA. This will include stance on further medical care, the possibility of comfort care as I believe that the patient is unlikely to improve at this point. We will also discuss the possibility of canceling ORIF of left elbow fracture and gentle perspective on tube feeds. VTE Prophylaxis: Theraputic Anticoag with Warfarin VTE Mechanical Devices: Intermittant Pneumatic CD Resuscitation Status: CPR: Attempt Resuscitation Joel Mckenna MD Sep 26, 2016 15:28
--- NOTE | 2016-09-26 16:12 | DRSVH ---
PROCEDURE: X-RAY CHEST ONE VIEW, PORTABLE ([id number]) INDICATIONS: dyspnea TECHNIQUE: One view of the chest was acquired. COMPARISON: [facility], CR, XR CHEST 2VW, 09/10/2016, 16:26. [facility], CR, XR CHEST 1VW (PORTABLE), 08/31/2016, 15:48. FINDINGS: Surgical changes and devices: Electronic device projected over left upper lung. Lungs and pleura: Persistent retrocardiac airspace opacity and there's been interval increase in mid right lung basilar patchy airspace opacity. Mild scarring within the right upper lobe. No pneumotho rax. Mediastinum: Mediastinal contours appear normal. Heart size is enlarged. Bones and chest wall: No suspicious bony lesions. Overlying soft tissues appear unremarkable. Bila teral shoulder arthropathy, left greater than right and probable right intra-articular body involving the glenohumeral joint. IMPRESSION: 1. Persistent retrocardiac airspace opacity and interval increase in mid right lung and basilar air s pace opacity suspicious for aspiration or pneumonia. Continued radiographic surveillance to resolutio n is recommended. Dictated by: Earl ALFARO Interpreted: Mitra Marshall MD on 09/26/2016 at 15:29 Approved by: Mitra Marshall M.D. on 09/26/2016 at 16:10
[2016-09-26 16:40] VITALS: BP 153/123; PULSE 124; RESP 20; O2SAT 97
[2016-09-26 18:03] LABS: INR 2.74 ratio
--- NOTE | 2016-09-26 18:26 | NUR ---
Mentation/Activity Patient somnolent this AM, speech slurred unable to hold up head or drink from cup. AM meds held and MD notified. Patient slept through most of shift, however became more alert and the past few hours. Patient speech clearer but pt continues to be confused, hallucinating and talking to dogs and people not in the room. Patient in soft restraints for safety, call light placed within patients reach.
[2016-09-26 19:46] LABS: Bilirubin, Direct 0.2 mg/dL (0.0-0.3)
[2016-09-26 20:47] VITALS: BP 141/102; PULSE 140; RESP 22; O2SAT 95
[2016-09-27 01:06] VITALS: BP 174/96; PULSE 100; RESP 22; O2SAT 96
[2016-09-27] MEDS ORDERED: Labetalol 5 mg/mL 20 mL Inj IVPUSH PRN (02:00)
[2016-09-27] MEDS: 0.9% Sodium Chloride 1,000 ML IV SCH ×2 (02:32→14:08)
[2016-09-27 04:37] VITALS: BP 172/99; PULSE 90; RESP 20; O2SAT 97
[2016-09-27 05:11] VITALS: BP 140/67
--- NOTE | 2016-09-27 06:05 | NUR ---
Mentation / Cardiovascular Pt AOx3 at HS to assessment; able to follow commands, answer questions, verbalize needs, and feed self in bed after verbalizing hunger. Progressive confusion throughout the night; patient still able to participate in care, but speaks to himself in his room with no apparent audience. During brief changes, patient will state his name and date of and request to be taken to the hospital. Reorientation attempted, patient intermittently verbalized understanding of present situation. Pt on 3L NC, VSS with the exception of hypertension this shift without apparent self-resolution. MD franz, NS IVF put on hold, and labetalol PRN ordered for blood pressure. Just prior to first dose of administration, blood pressure reduced to 140s. No labetalol given at this time. Bedrest, NPO after midnight. Soft wrist restraints in place at this time.
[2016-09-27] MEDS: Pantoprazole 20 mg ER24 Tablet PO SCH (06:36)
[2016-09-27 08:39] VITALS: BP 145/93; PULSE 118; RESP 20; O2SAT 92
[2016-09-27] MEDS: Sodium Chloride LOK Flush 10 mL Syringe IVFLUSH SCH ×3 (08:52→21:18)
[2016-09-27] MEDS: Diltiazem CD 180 mg ER24 Capsule PO SCH (08:52)
[2016-09-27 12:39] VITALS: BP 140/97; PULSE 129; RESP 22; O2SAT 97
--- NOTE | 2016-09-27 12:55 | PCM.PNMED ---
Subjective Date of Service Sep 27, 2016 Subjective He is doing a lot better today. Mentally he is more clear. He is able to tell the nurse where he was and what year it is. He notes some left shoulder pain. He does note low but her dyspnea but appears much more comfortable and yesterday. He denies any nausea or abdominal pain. He is thirsty and somewhat hungry. No overnight events He requires restraints because of pulling at lines including his midline. Exam Vital Signs Vital Sign - Last Date Time Temp Pulse Resp B/P Pulse Ox O2 Delivery O2 Flow Rate FiO2 09/27/16 12:39 36.6 129 22 140/97 97 Nasal Cannula 2.50 Intake and Output 09/26/16 09/26/16 09/27/16 Cumulative From/Thru 15:00 23:00 07:00 08/31/16 15:43 - 09/27/16 06:35 Intake Total 1275 ml 514 ml 30402 ml Output Total 80449 ml Balance 1275 ml 514 ml 21566 ml Intake Oral 200 ml 96603 ml IV Total 1075 ml 514 ml 74925 ml Output Urine Total 71432 ml Stool Total 60 ml Drainage Total 50 ml # Voids 2 35 # Bowel Movements 35 Exam Alert and oriented -3, no distress. Appearing, somewhat slurred speech. More oriented today. Anicteric sclera. Lungs are clear with normal effort and slight tachypnea. Heart is irregular without murmur gallop or rub Abdomen soft nontender, flat. Ostomy in place Extremities are free of edema. Skin is free of rash or lesions. IVs and Medications Medications Reviewed: Medications were reviewed in detail Lab and Diagnostics Result Diagram: 09/24/16 1430 09/26/16 1631 X-Rays, CTs and MRIs CT CHEST WITHOUT CONTRAST IMPRESSION: Small to moderate bilateral pleural effusions with adjacent atelectasis. Additional patchy consolidation in the left lung base possibly pneumonia or aspiration. Please correlate clinically. Mild cardiomegaly. Circumferential lower chest wall edema, possibly third spacing/anasarca. Please correlate clinically. Dictated by: Rizwan Orta M.D. on 08/31/2016 at 18:13 X-RAY CHEST ONE VIEW, PORTABLE IMPRESSION: The bibasilar pneumonia, left greater than right, possible mild or early pneumonia right upper lobe. 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 Dictated by: William Baker M.D. on 08/31/2016 at 16:23 PROCEDURE: X-RAY CHEST, TWO VIEWS ([id number]) IMPRESSION: Retrocardiac left lower lobe pneumonia, while mild right upper lobe scarring. Dictated by: William Baker M.D. on 09/10/2016 at 17:23 Approved by: William Baker M.D. on 09/10/2016 at 17:23 PROCEDURE: CT BRAIN WITHOUT CONTRAST ([id number]) IMPRESSION: No CT evidence of acute intracranial pathology. Dictated by: Antwon Miller M.D. on 09/17/2016 at 13:33 PROCEDURE: X-RAY LEFT SHOULDER, MINIMUM TWO VIEWS ([id number]) IMPRESSION: 1. Mildly impacted acute fracture of the left humeral neck. 2. Nonacute nonunited lateral left clavicle fracture. 3. Severe left glenohumeral joint degeneration. Dictated by: Enoch Zhu M.D. on 09/18/2016 at 18:25 PROCEDURE: X-RAY LEFT ELBOW, TWO VIEWS ([id number]) IMPRESSION: Mildly displaced comminuted intra-articular fracture of the olecranon. Dictated by: Enoch Zhu M.D. on 09/18/2016 at 18:27 . Cardiac Echo Impressions Interpretation Summary Left ventricular systolic function is normal without focal wall motion abnormalities. The ejection fraction is estimated to be 60-65%. LVEF has not changed since priro study. Left ventricular wall thickness is mild-moderately increased. The right ventricle is at the upper limits of normal in size. The right ventricular systolic function is normal. Right ventricular systolic pressure is estimated to be 20 mmHg plus the clinically estimated CVP which cannot be estimated on this exam. The left atrium is severely dilated. The right atrium is severely dilated. There is mild mitral regurgitation. There is no other significant valvular heart disease. The aortic root is mildly dilated. The ascending aorta is mildly enlarged. The aortic arch is mildly enlarged. E/E' med: 15.1 Assessment & Plan #. Severe metabolic encephalopathy, relatively new and worsening. His mental status is still oscillating. He is more clear today. We will continue to follow to see if he improves or not. There is really no reversible cause of his encephalopathy that is identifiable at this time. #. Left humeral and olecranon fracture, acute and active. Orthopedics is electing to not operate but rather to place a cast at this time. This seems very reasonable. The patient has a left elbow fracture and the left humeral head fracture. The patient cannot be placed in a sling after which will help with him humerus fracture pain as well as mitigate his impulsive movements. #. Acute kidney injury. Not present on admission and improving. Continue IV fluids, check electrolytes tomorrow #. Atrial fibrillation which is rate controlled, POA and active. The patient will require resumption of blood thinners. Given proximity to surgery and his therapeutic INR just up until 2 days ago we will possibly hold until postoperative phase and then resume anticoagulation. Fortunately patient continues to be a severe fall risk and this is a relative contraindication to anticoagulation. We will recheck his INR today. The patient has been on Coumadin which was held recently. The only role problem with visit the patient really is a very high fall risk and probably should not be anticoagulated but rather just converted to aspirin when his pro time drifts down a bit further. #. Acute on chronic anxiety, History of PTSD and depression. Active and stable. Patient feels significantly anxious and claustrophobic. Processes limited trust with care providers at [facility]. Will leave the door open. We do not have accurate medication records and he claims [facility] give him twice daily lorazepam. He seems intermittently somewhat sedated on this regimen - Lorazepam 1 mg twice a day, continue for now, if no encephalopathy - Resume sertraline. We will stop lorazepam as patient appears to be encephalopathic. 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 She was given Seroquel for general agitation and anxiety in hopes of making him more comfortable. We will continue for now. #. Acute exacerbation of chronic diastolic congestive heart failure, present on admission, Resolved. At time of admission Patient has noted orthopnea, exertional dyspnea and lower extremity edema over the last week. BNP is also significantly elevated at 25, 000. Clinical impression was acute diastolic CHF due to atrial fibrillation with RVR. He subsequently has developed poor by mouth fluid intake and rising serum creatinine His IV fluids are currently at 75 miles an hour as he is eating very little. No evidence of decompensation. #. Falling episodes, acute on chronic. Stable. No recent falls in last 2 days. Several episodes during this inpatient hospitalization. Most recently with trauma and fracture of left arm. He is left-handed. - I have advised patient he must consider SNF placement due to his inability to manage at home even with significant assistance. A long conversation with the POA and have really discussed the fact that she not be able to discharge home safely and will require long-term facility care. #. Muscular deconditioning, not present on admission and active and worsening. Patient does not seem able to safely ambulate short distances. He is anticoagulated. Fall on 09/16/16 did not result in brain bleeding. He refuses to consider discharge to SNF - Continue physical therapy after patient has been okayed by orthopedics - Plan discharge to SNF after testing of elbow fracture. #. Recent history of pulmonary embolism, present on admission, active. We do not have records of this diagnosis. Patient's INR was subtherapeutic on admission. - Warfarin management per pharmacy. This is therapeutic, no change in current therapy. - Currently had been holding warfarin in advance of surgery, this is now canceled. Medically anticoagulation is indicated, however the patient is such a high fall risk that the risks of using this are very high. We will continue to consider the best course of action. #. Troponin elevation, present on admission. Resolved. Troponin level 0.042- 0.066 with no clear temporal pattern to suggest coronary ischemia, even with heart rate greater than 160. - Troponin elevation likely secondary to demand ischemia from rapid rate. No further workup. #. ESBL proteus UTI, present on admission. Resolved. - No clinical symptoms aside from generalized weakness. He has history of relatively asymptomatic infections in the past. - Ertapenem initiated on 09/02/16, course completed on 09/15/16. Now discontinued - Infectious disease consult by Dr. Summers. There is one additional culture revealing ertapenem resistant species. Infectious disease is aware. #. Acute on chronic respiratory failure with hypercarbia and hypoxia, present on admission, Resolved. At time of admission, likely secondary to diastolic CHF from rapid A. fib. Moderate sized right sided pleural effusions on CT. Patient reports a recent thoracentesis at [facility] in [place]. Procalcitonin negative. - Continue his usual Ipratropium every 4 hours while awake, levalbuterol every 2 hours as needed for shortness of breath #. Diarrhea, not present on admission. Resolved. #. Chronic kidney disease stage IV, POA and stable -Appears to be patient's baseline. -Continue to monitor #. Enterocutaneous fistula, chronic. - Continue ostomy care #. Carboplatinum resistant Klebsiella colonization around stoma, POA and active. The patient remains in double isolation. CODE STATUS: Full code We will have level care discussions with the patient's DPOAH (friend Darwin whose name is on the white board with phone number). Will begin looking for long-term facilities that may be willing to accept him for ongoing care. VTE Prophylaxis: Theraputic Anticoag with Warfarin VTE Mechanical Devices: Intermittant Pneumatic CD Resuscitation Status: CPR: Attempt Resuscitation Joel Mckenna MD Sep 27, 2016 12:55 We will have level care discussions with the patient's DPOAH. This will include stance on further medical care, the possibility of comfort care as I believe that the patient is unlikely to improve at this point. We will also discuss the possibility of canceling ORIF of left elbow fracture and gentle perspective on tube feeds. VTE Prophylaxis: Theraputic Anticoag with Warfarin VTE Mechanical Devices: Intermittant Pneumatic CD Resuscitation Status: CPR: Attempt Resuscitation Joel Mckenna MD Sep 27, 2016 12:55
--- NOTE | 2016-09-27 14:00 | NUR ---
Faxed updated to Norma Ryder at [facility] per [employer]
[2016-09-27 14:29] LABS: INR 2.88 ratio
[2016-09-27 21:36] VITALS: BP 144/112; PULSE 136; RESP 22; O2SAT 95
[2016-09-28 02:30] VITALS: BP 165/98; PULSE 82; RESP 22; O2SAT 93
[2016-09-28] MEDS: 0.9% Sodium Chloride 1,000 ML IV SCH ×2 (05:49→16:47)
--- NOTE | 2016-09-28 05:50 | NUR ---
Pain/Arm Pt L arm giving him significant amount of pain. Was not casted yesterday or evening. PO meds given when care clustered. Pt reports gratitude but still remains in pain with movement. Care ongoing
[2016-09-28 07:51] VITALS: BP 132/93; PULSE 116; RESP 18; O2SAT 98
[2016-09-28] MEDS: Pantoprazole 20 mg ER24 Tablet PO SCH (08:03)
[2016-09-28] MEDS: Sodium Chloride LOK Flush 10 mL Syringe IVFLUSH SCH ×3 (08:03→22:36)
[2016-09-28] MEDS: Diltiazem CD 180 mg ER24 Capsule PO SCH (08:04)
--- NOTE | 2016-09-28 08:25 | NUR ---
arm/pain With am assessment noted splint and zaida wrap removed from left arm. pt reporting severe arm pain. splint and zaida wrap reapplied and prn pain meds, oxycodone and tylenol given. will monitor for effectiveness.
--- NOTE | 2016-09-28 10:28 | PCM.PNORTH ---
Subjective Date of Service: Sep 28, 2016 Visit Information: Reason for Visit Sob/Pneumonia/Acs/Chf Surgery/Surgery Date Post-Op Day # 6 Date of Admission: Aug 31, 2016 at 19:38 Hospital Day # Subjective Patient is alert today and introduced himself to me and shook my hand. He complains that his left arm is throbbing and painful. Pain Management: PO Objective Exam Objective Patient laying in bed, elbow on pillow slightly elevated. Vital Signs and I/O Vital Sign - Last Date Time Temp Pulse Resp B/P Pulse Ox O2 Delivery O2 Flow Rate FiO2 09/28/16 07:51 36.5 116 18 132/93 98 Nasal Cannula 2.00 Intake and Output 09/27/16 09/27/16 09/28/16 Cumulative From/Thru 15:00 23:00 07:00 08/31/16 15:43 - 09/28/16 05:30 Intake Total 481 ml 630 ml 237 ml 04258 ml Output Total 93922 ml Balance 481 ml 630 ml 237 ml 79929 ml Intake Oral 100 ml 400 ml 237 ml 24166 ml IV Total 381 ml 230 ml 86290 ml Output Urine Total 86454 ml Stool Total 60 ml Drainage Total 50 ml # Voids 2 2 39 # Bowel Movements 2 2 2 41 Lab & Micro Results Laboratory Tests Test 09/27/16 13:45 Prothrombin Time 31.5sec (8.1-12.5) Prothromb Time International Ratio 2.88ratio Microbiology 08/31/16 Blood Culture - Final, Complete NO GROWTH AFTER 5 DAYS 09/10/16 Campylobacter (PCR) - Final, Complete Not Detected 09/10/16 Clostridium difficile Toxin A&B (M) - Final, Complete Not Detected 09/10/16 Plesiomonas shigelloides (PCR) - Final, Complete Not Detected 09/10/16 Salmonella (PCR)(BURT) - Final, Complete Not Detected 09/10/16 Yersinia enterocolitica (PCR) - Final, Complete Not Detected 09/10/16 Vibrio Species (PCR) - Final, Complete Not Detected 09/10/16 Vibrio Cholerae (PCR) - Final, Complete Not Detected 09/10/16 Enteroaggregative E. coli (PCR) - Final, Complete Not Detected 09/10/16 Enteropathogenic E. coli (PCR) - Final, Complete Not Detected 09/10/16 Enterotoxigenic E. coli (PCR) - Final, Complete Not Detected 09/10/16 E. coli Shiga-like Toxin (PCR) - Final, Complete Not Detected 09/10/16 Escherichia coli 0157 (PCR) - Final, Complete Not Detected 09/10/16 Enteroinvasive E. coli/Shigella PCR - Final, Complete Not Detected 09/10/16 Cryptosporidium (PCR) - Final, Complete Not Detected 09/10/16 Cyclospora cayetanensis (PCR) - Final, Complete Not Detected 09/10/16 Entamoeba histolytica (PCR) - Final, Complete Not Detected 09/10/16 Giardia lamblia (PCR) - Final, Complete Not Detected 09/10/16 Adenovirus Type F 40/41 (PCR) - Final, Complete Not Detected 09/10/16 Astrovirus (PCR) - Final, Complete Not Detected 09/10/16 Norovirus (PCR) - Final, Complete Not Detected 09/10/16 Rotavirus A (PCR) - Final, Complete Not Detected 09/10/16 Sapovirus I/II/IV/V (PCR) - Final, Complete 09/11/16 Adenovirus DNA (PCR) - Final, Complete Not Detected 09/11/16 Coronavirus 229E PCR - Final, Complete Not Detected 09/11/16 Coronavirus HKU1 PCR - Final, Complete Not Detected 09/11/16 Coronavirus NL63 PCR - Final, Complete Not Detected 09/11/16 Coronavirus OC43 PCR - Final, Complete Not Detected 09/11/16 Influenza Type A (PCR) - Final, Complete Not Detected 09/11/16 Influenza Type B (PCR) - Final, Complete Not Detected 09/11/16 Human Metapneumovirus (PCR) (BURT) - Final, Complete Not Detected 09/11/16 Rhinovirus (PCR)(BURT) - Final, Complete Not Detected 09/11/16 Parainfluenza Virus Type 1 (PCR) - Final, Complete Not Detected 09/11/16 Parainfluenza Virus Type 2 (PCR) - Final, Complete Not Detected 09/11/16 Parainfluenza Virus Type 3 (PCR) - Final, Complete Not Detected 09/11/16 Parainfluenza Virus Type 4 (NAAT) - Final, Complete Not Detected 09/11/16 Respiratory Syncytial Virus (PCR)ME - Final, Complete Not Detected 09/11/16 Chlamydia pneumoniae (PCR) - Final, Complete Not Detected 09/11/16 Mycoplasma pneumoniae DNA Detection - Final, Complete 08/31/16 Urine Culture - Final, Complete Proteus [employer] Internship Mixed Urogenital Poonam 09/06/16 Gram Stain - Final, Complete 09/06/16 Culture & Sensitivity - Final, Complete Carbapenem R Klebsiella Spp. With Normal Poonam 09/06/16 Anaerobic Culture - Final, Complete No anaerobes isolated Result Diagram: 09/24/16 1430 09/26/16 1631 Extremities: Distal Pulses Palpable, Tenderness/Swelling Noted (At shoulder; mild-moderate in hand) Postop Sensory Motor: Movement in Fingers (Able to make a fist), NVI Distally SURGICAL WOUND : Wound Location/Description Splint appears to be intact however his arm looks twisted in it. I adjusted it today. Drain Location Body Site: Abdomen Wound Drainage Type: ostomy Assessment & Plan Impression 1. Old clavicle fracture on the left side 2. Left humeral neck fracture in adequate position 3. Displaced left olecranon fracture Problems: Plan It is not in the patient's best interest to proceed with surgery. Due to his health concerns, risks of surgery outweigh the benefits. Consequently, patient will likely lose some range of motion to his elbow if not fixed operatively due to the olecranon fracture. We will treat the patient with immobilization and follow with xrays to monitor his healing. Weightbearing: Nonweightbearing with the LUE. DVT prophylaxis: Currently taking Heparin. Discussed with hospitalist and he will discontinue prior to surgery. Physical therapy for transfers, progressive ambulation, strengthening Immobilization: Splint should stay intact. I recommend patient be placed into a sling with both a shoulder strap and a strap around the waist to work as an immobilizer. The proximal humerus fracture requires that the shoulder remain immobile as much as possible. Analgesia: Tylenol. Please ice above the splint at the shoulder to help decrease swelling. If tolerated, elevation with a pillow beneath the hand or elbow will help decrease swelling as well. Patient should follow up at [facility] Orthopedic office at the [facility] in one week, which will put him two weeks status post left olecranon and proximal humerus fracture. We will get xrays of the elbow and shoulder at that time. We will likely transition him into a cast or elbow brace depending on his mentation. Ortho will sign off at this point but please call with questions. VTE Prophylaxis: Theraputic Anticoag with Warfarin Resuscitation Status: CPR: Attempt Resuscitation Elina Fung PA-C Sep 28, 2016 10:28
--- NOTE | 2016-09-28 13:38 | PCM.PNMED ---
Subjective Date of Service Sep 28, 2016 Subjective Patient is alert but slow to answer questions. Exam Vital Signs Vital Sign - Last Date Time Temp Pulse Resp B/P Pulse Ox O2 Delivery O2 Flow Rate FiO2 09/28/16 07:51 36.5 116 18 132/93 98 Nasal Cannula 2.00 Intake and Output 09/27/16 09/27/16 09/28/16 Cumulative From/Thru 15:00 23:00 07:00 08/31/16 15:43 - 09/28/16 05:30 Intake Total 481 ml 630 ml 237 ml 70071 ml Output Total 52592 ml Balance 481 ml 630 ml 237 ml 25180 ml Intake Oral 100 ml 400 ml 237 ml 87867 ml IV Total 381 ml 230 ml 79347 ml Output Urine Total 26051 ml Stool Total 60 ml Drainage Total 50 ml # Voids 2 2 39 # Bowel Movements 2 2 2 41 Exam Constitutional: Elderly male in no acute distress Head: Normocephalic atraumatic Chest: Decreased breath sounds athis Cor: Irregular regular rate and rhythm S1-S2 without murmur Abdomen: Soft nontender ostomy in place with light brown stool looser in consistency present Extremities: No pedal edema Skin: No rashes Psych: Flat affect IVs and Medications Medications Reviewed: Medications were reviewed in detail Lab and Diagnostics Result Diagram: 09/24/16 1430 09/26/16 1631 X-Rays, CTs and MRIs CT CHEST WITHOUT CONTRAST IMPRESSION: Small to moderate bilateral pleural effusions with adjacent atelectasis. Additional patchy consolidation in the left lung base possibly pneumonia or aspiration. Please correlate clinically. Mild cardiomegaly. Circumferential lower chest wall edema, possibly third spacing/anasarca. Please correlate clinically. Dictated by: Rizwan Orta M.D. on 08/31/2016 at 18:13 X-RAY CHEST ONE VIEW, PORTABLE IMPRESSION: The bibasilar pneumonia, left greater than right, possible mild or early pneumonia right upper lobe. 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 Dictated by: William Baker M.D. on 08/31/2016 at 16:23 PROCEDURE: X-RAY CHEST, TWO VIEWS ([id number]) IMPRESSION: Retrocardiac left lower lobe pneumonia, while mild right upper lobe scarring. Dictated by: William Baker M.D. on 09/10/2016 at 17:23 Approved by: William Baker M.D. on 09/10/2016 at 17:23 PROCEDURE: CT BRAIN WITHOUT CONTRAST ([id number]) IMPRESSION: No CT evidence of acute intracranial pathology. Dictated by: Antwon Miller M.D. on 09/17/2016 at 13:33 PROCEDURE: X-RAY LEFT SHOULDER, MINIMUM TWO VIEWS ([id number]) IMPRESSION: 1. Mildly impacted acute fracture of the left humeral neck. 2. Nonacute nonunited lateral left clavicle fracture. 3. Severe left glenohumeral joint degeneration. Dictated by: Enoch Zhu M.D. on 09/18/2016 at 18:25 PROCEDURE: X-RAY LEFT ELBOW, TWO VIEWS ([id number]) IMPRESSION: Mildly displaced comminuted intra-articular fracture of the olecranon. Dictated by: Enoch Zhu M.D. on 09/18/2016 at 18:27 . Cardiac Echo Impressions Interpretation Summary Left ventricular systolic function is normal without focal wall motion abnormalities. The ejection fraction is estimated to be 60-65%. LVEF has not changed since priro study. Left ventricular wall thickness is mild-moderately increased. The right ventricle is at the upper limits of normal in size. The right ventricular systolic function is normal. Right ventricular systolic pressure is estimated to be 20 mmHg plus the clinically estimated CVP which cannot be estimated on this exam. The left atrium is severely dilated. The right atrium is severely dilated. There is mild mitral regurgitation. There is no other significant valvular heart disease. The aortic root is mildly dilated. The ascending aorta is mildly enlarged. The aortic arch is mildly enlarged. E/E' med: 15.1 Assessment & Plan #. Severe metabolic encephalopathy, relatively new and worsening. His mental status is still oscillating. He is more clear today. We will continue to follow to see if he improves or not. There is really no reversible cause of his encephalopathy that is identifiable at this time. Patient's mental status has been ongoing waxing and waning and hence he is not capable to be sent home and will need placement. Given his current altered mental status I do not think he has the capacity to make a decision for placement. The other issue is with his left humeral and olecranon fracture he will not be able to take care of his ostomy and hence needs placement if only from that perspective. Given his current mental status he will need placement to be in a safe environment. #. Left humeral and olecranon fracture, acute and active. Orthopedics is electing to not operate but rather to place a cast at this time. This seems very reasonable. The patient has a left elbow fracture and the left humeral head fracture. The patient cannot be placed in a sling after which will help with him humerus fracture pain as well as mitigate his impulsive movements. #. Acute kidney injury. Not present on admission and improving. Continue IV fluids, check electrolytes tomorrow #. Atrial fibrillation which is rate controlled, POA and active. The patient will require resumption of blood thinners. Given proximity to surgery and his therapeutic INR just up until 2 days ago we will possibly hold until postoperative phase and then resume anticoagulation. Fortunately patient continues to be a severe fall risk and this is a relative contraindication to anticoagulation. We will recheck his INR today. The patient has been on Coumadin which was held recently. The only role problem with visit the patient really is a very high fall risk and probably should not be anticoagulated but rather just converted to aspirin when his pro time drifts down a bit further. #. Acute on chronic anxiety, History of PTSD and depression. Active and stable. Patient feels significantly anxious and claustrophobic. Processes limited trust with care providers at [facility]. Will leave the door open. We do not have accurate medication records and he claims his [facility] give him twice daily lorazepam. He seems intermittently somewhat sedated on this regimen - Lorazepam 1 mg twice a day, continue for now, if no encephalopathy - Resume sertraline. We will stop lorazepam as patient appears to be encephalopathic. 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 She was given Seroquel for general agitation and anxiety in hopes of making him more comfortable. We will continue for now. #. Acute exacerbation of chronic diastolic congestive heart failure, present on admission, Resolved. At time of admission Patient has noted orthopnea, exertional dyspnea and lower extremity edema over the last week. BNP is also significantly elevated at 25, 000. Clinical impression was acute diastolic CHF due to atrial fibrillation with RVR. He subsequently has developed poor by mouth fluid intake and rising serum creatinine His IV fluids are currently at 75 miles an hour as he is eating very little. No evidence of decompensation. #. Falling episodes, acute on chronic. Stable. No recent falls in last 2 days. Several episodes during this inpatient hospitalization. Most recently with trauma and fracture of left arm. He is left-handed. - I have advised patient he must consider SNF placement due to his inability to manage at home even with significant assistance. Dr Mckenna did have a long conversation with the DPOA and have really discussed the fact that he not be able to discharge home safely and will require snf facility care. #. Muscular deconditioning, not present on admission and active and worsening. Patient does not seem able to safely ambulate short distances. He is anticoagulated. Fall on 09/16/16 did not result in brain bleeding. He refuses to consider discharge to SNF - Continue physical therapy after patient has been okayed by orthopedics - Plan discharge to SNF after testing of elbow fracture. #. Recent history of pulmonary embolism, present on admission, active. We do not have records of this diagnosis. Patient's INR was subtherapeutic on admission. - Warfarin management per pharmacy. This is therapeutic, no change in current therapy. - Currently had been holding warfarin in advance of surgery, this is now canceled. Medically anticoagulation is indicated, however the patient is such a high fall risk that the risks of using this are very high. We will continue to consider the best course of action. #. Troponin elevation, present on admission. Resolved. Troponin level 0.042- 0.066 with no clear temporal pattern to suggest coronary ischemia, even with heart rate greater than 160. - Troponin elevation likely secondary to demand ischemia from rapid rate. No further workup. #. ESBL proteus UTI, present on admission. Resolved. - No clinical symptoms aside from generalized weakness. He has history of relatively asymptomatic infections in the past. - Ertapenem initiated on 09/02/16, course completed on 09/15/16. Now discontinued - Infectious disease consult by Dr. Summers. There is one additional culture revealing ertapenem resistant species. Infectious disease is aware. #. Acute on chronic respiratory failure with hypercarbia and hypoxia, present on admission, Resolved. At time of admission, likely secondary to diastolic CHF from rapid A. fib. Moderate sized right sided pleural effusions on CT. Patient reports a recent thoracentesis at [facility] in [place]. Procalcitonin negative. - Continue his usual Ipratropium every 4 hours while awake, levalbuterol every 2 hours as needed for shortness of breath #. Diarrhea, not present on admission. Resolved. #. Chronic kidney disease stage IV, POA and stable -Appears to be patient's baseline. -Continue to monitor #. Enterocutaneous fistula, chronic. - Continue ostomy care #. Carboplatinum resistant Klebsiella colonization around stoma, POA and active. The patient remains in double isolation. CODE STATUS: Full code We will have level care discussions with the patient's DPOAH (friend Darwin whose name is on the white board with phone number). Will begin looking for snf facilities that may be willing to accept him for ongoing care. VTE Prophylaxis: Theraputic Anticoag with Warfarin VTE Mechanical Devices: Intermittant Pneumatic CD Resuscitation Status: CPR: Attempt Resuscitation Time spent 30 minutes Sanaz Zimmer MD Sep 28, 2016 13:38
--- NOTE | 2016-09-28 14:47 | NUR ---
mentation pt alert and oriented to self, place and loosely to time this morning. pleasant throughout day. As of recent patient continues to be oriented to self, but ask about "going back to his room, or if he will have a nice room?" pt reoriented to room and situation. resting quietly this afternoon. patient able to feed self his sandwich for lunch. will continue to monitor.
--- NOTE | 2016-09-28 15:27 | NUR ---
POST HOSPITAL FOLLOW UP: Called and spoke with Montse in patient access at [facility] [phone] and she saw that patient was scheduled for home visit in August 2016 and there was contract completed with [facility] through [place] as well. CLEANER TOUCH UP WORKER for this is Mony Siddiqi at [facility] and she can be reached at [phone], left message for her regarding plans for patient and what we could do instead of SNF and make sure has appropriate terminologist care placement. Updated CLEANER TOUCH UP WORKER
[2016-09-28 15:51] VITALS: BP 121/74; PULSE 104; RESP 22; O2SAT 93
--- NOTE | 2016-09-28 17:05 | NUR ---
Social Work: Continued Discharge Planning/Multidisciplinary Rounds D: Pt discussed in multidisciplinary rounds. Pt's care reviewed with the attending and resident providers. At this time, ortho is not moving forward with surgery and intends to cast the patient's arm once his swelling is reduced. Based on the current level of swelling since the patient's fall, this could take a substantial amount of time. Pt's mentation continues to wax and wane heavily with moments of lucidity combined with periods of hallucinations and disorientation. At this time, both the attending and resident providers following this case do not feel the patient is decisional according to the [facility] policy referencing decisional capacity. They have requested MACHINING MANAGER contact the patient's DPOA, Darwin Perez for ongoing discharge planning. MACHINING MANAGER met with pt's DPOA, Darwin. MACHINING MANAGER informed him of the aforementioned information and that he is now considered the pt's legal decision maker for healthcare purposed until pt's mentation improves/stabilizes. He states that he is not surprised and does not feel that the patient has capacity to make decisions at this time. He cites similar mentation shifts that staff have observed as well. MACHINING MANAGER introduced the subject of discharge/ferry terminal agent care planning. At this time, Darwin feels that the patient is not safe to go home and will need a higher level of care. It remains to be determined whether the patient has a skilled need for rehab/nursing or if he will need assisted living or memory care. DPOA states that the patient has a small savings and [facility]. DANIAL is going to pay the bill the patient owes at [facility] but is not sure that he wants for the patient to return there "because he hated it so much." He does not have any other preferences for SNF at this time but requested that it be local or in [facility] so that he could come to visit and easily manage his affairs. MACHINING MANAGER informed him that we would explore all of the options. Darwin will be coming back for a visit on Monday09/30/16; MACHINING MANAGER suggested a multidisciplinary meeting to discuss goals of care and discharge planning. He agreed. NATALIE has confirmed with attending provider that she will be available at 3:00pm. MACHINING MANAGER inquired if a palliative consult was appropriate. Attending provider agreed and would like them invited to the meeting with DPOA. MACHINING MANAGER has informed the case management transitions of manager care of this meeting as well. special effects specialist is exploring the patient's custodial care options covered through the [facility]; pt's director social welfare is Mony Siddiqi at the [facility]: She can be reached at [phone]. A message has been left for her. A: Pt who does not currently hold decisional capacity. P: Pt's discharge plan is being determined with his DPOA, Darwin Perez. Multidisicplinary Meeting with the DPOA is scheduled for Monday09/30/16 at 3:00pm. NATALIE Matias
[2016-09-28 22:13] VITALS: BP 150/98; PULSE 104; RESP 24; O2SAT 96
[2016-09-29 03:32] VITALS: BP 145/93; PULSE 91; RESP 18; O2SAT 95
[2016-09-29] MEDS: 0.9% Sodium Chloride 1,000 ML IV SCH ×2 (06:13→21:58)
[2016-09-29] MEDS: Pantoprazole 20 mg ER24 Tablet PO SCH (06:14)
--- NOTE | 2016-09-29 06:38 | NUR ---
Pain Pt c/o L arm and shoulder pain, difficulty with any movement. Pain treated with oxycodone 5mg PO x2 doses. Tolerated fair, seemed to be effective as patient slept most of the night.
[2016-09-29 07:48] VITALS: PULSE 96; RESP 18; O2SAT 95
[2016-09-29 09:12] VITALS: BP 127/87; PULSE 105; RESP 20; O2SAT 92
[2016-09-29] MEDS: Diltiazem CD 180 mg ER24 Capsule PO SCH (09:31)
[2016-09-29] MEDS: Sodium Chloride LOK Flush 10 mL Syringe IVFLUSH SCH ×2 (09:31→16:30)
--- NOTE | 2016-09-29 13:45 | PCM.PNMED ---
Subjective Date of Service Sep 29, 2016 Subjective Patient is alert this morning and we discuss need for possible assisted living versus SNIF placement until his physical therapy progresses and left arm fracture gets better. Exam Vital Signs Vital Sign - Last Date Time Temp Pulse Resp B/P Pulse Ox O2 Delivery O2 Flow Rate FiO2 09/29/16 09:12 36.4 105 20 127/87 92 Nasal Cannula 2.00 Intake and Output 09/28/16 09/28/16 09/29/16 Cumulative From/Thru 15:00 23:00 07:00 08/31/16 15:43 - 09/29/16 05:24 Intake Total 1076 ml 1285 ml 100 ml 04686 ml Output Total 76166 ml Balance 1076 ml 1285 ml 100 ml 99523 ml Intake Oral 680 ml 100 ml 42203 ml IV Total 1076 ml 605 ml 22574 ml Output Urine Total 45039 ml Stool Total 60 ml Drainage Total 50 ml # Voids 2 2 43 # Bowel Movements 1 2 44 Exam Constitutional: Elderly male in no acute distress Head: Normocephalic atraumatic Chest: Decreased breath sounds at bases Cor: Irregular regular rate and rhythm S1-S2 without murmur Abdomen: Soft nontender ostomy in place with light brown stool looser in consistency present Extremities: No pedal edema Skin: No rashes Psych: Flat affect Lab and Diagnostics Result Diagram: 09/24/16 1430 09/26/16 1631 X-Rays, CTs and MRIs CT CHEST WITHOUT CONTRAST IMPRESSION: Small to moderate bilateral pleural effusions with adjacent atelectasis. Additional patchy consolidation in the left lung base possibly pneumonia or aspiration. Please correlate clinically. Mild cardiomegaly. Circumferential lower chest wall edema, possibly third spacing/anasarca. Please correlate clinically. Dictated by: Rizwan Orta M.D. on 08/31/2016 at 18:13 X-RAY CHEST ONE VIEW, PORTABLE IMPRESSION: The bibasilar pneumonia, left greater than right, possible mild or early pneumonia right upper lobe. 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 Dictated by: William Baker M.D. on 08/31/2016 at 16:23 PROCEDURE: X-RAY CHEST, TWO VIEWS ([id number]) IMPRESSION: Retrocardiac left lower lobe pneumonia, while mild right upper lobe scarring. Dictated by: William Baker M.D. on 09/10/2016 at 17:23 Approved by: William Baker M.D. on 09/10/2016 at 17:23 PROCEDURE: CT BRAIN WITHOUT CONTRAST ([id number]) IMPRESSION: No CT evidence of acute intracranial pathology. Dictated by: Antwon Miller M.D. on 09/17/2016 at 13:33 PROCEDURE: X-RAY LEFT SHOULDER, MINIMUM TWO VIEWS ([id number]) IMPRESSION: 1. Mildly impacted acute fracture of the left humeral neck. 2. Nonacute nonunited lateral left clavicle fracture. 3. Severe left glenohumeral joint degeneration. Dictated by: Enoch Zhu M.D. on 09/18/2016 at 18:25 PROCEDURE: X-RAY LEFT ELBOW, TWO VIEWS ([id number]) IMPRESSION: Mildly displaced comminuted intra-articular fracture of the olecranon. Dictated by: Enoch Zhu M.D. on 09/18/2016 at 18:27 . Cardiac Echo Impressions Interpretation Summary Left ventricular systolic function is normal without focal wall motion abnormalities. The ejection fraction is estimated to be 60-65%. LVEF has not changed since priro study. Left ventricular wall thickness is mild-moderately increased. The right ventricle is at the upper limits of normal in size. The right ventricular systolic function is normal. Right ventricular systolic pressure is estimated to be 20 mmHg plus the clinically estimated CVP which cannot be estimated on this exam. The left atrium is severely dilated. The right atrium is severely dilated. There is mild mitral regurgitation. There is no other significant valvular heart disease. The aortic root is mildly dilated. The ascending aorta is mildly enlarged. The aortic arch is mildly enlarged. E/E' med: 15.1 Assessment & Plan #. Severe metabolic encephalopathy, relatively new and worsening. His mental status is still oscillating. He is more clear today. We will continue to follow to see if he improves or not. There is really no reversible cause of his encephalopathy that is identifiable at this time. Patient's mental status has been ongoing waxing and waning and hence he is not capable to be sent home and will need placement. Given his current altered mental status I do not think he has the capacity to make a decision for placement. The other issue is with his left humeral and olecranon fracture he will not be able to take care of his ostomy and hence needs placement if only from that perspective. Given his current mental status he will need placement to be in a safe environment. #. Left humeral and olecranon fracture, acute and active. Orthopedics is electing to not operate but rather to place a cast at this time. This seems very reasonable. The patient has a left elbow fracture and the left humeral head fracture. The patient cannot be placed in a sling after which will help with him humerus fracture pain as well as mitigate his impulsive movements. #. Acute kidney injury. Not present on admission and improving. Continue IV fluids, check electrolytes tomorrow #. Atrial fibrillation which is rate controlled, POA and active. The patient will require resumption of blood thinners. Given proximity to surgery and his therapeutic INR just up until 2 days ago we will possibly hold until postoperative phase and then resume anticoagulation. Fortunately patient continues to be a severe fall risk and this is a relative contraindication to anticoagulation. We will recheck his INR today. The patient has been on Coumadin which was held recently. The only role problem with visit the patient really is a very high fall risk and probably should not be anticoagulated but rather just converted to aspirin when his pro time drifts down a bit further. #. Acute on chronic anxiety, History of PTSD and depression. Active and stable. Patient feels significantly anxious and claustrophobic. Processes limited trust with care providers at [facility]. Will leave the door open. We do not have accurate medication records and he claims [facility] give him twice daily lorazepam. He seems intermittently somewhat sedated on this regimen - Lorazepam 1 mg twice a day, continue for now, if no encephalopathy - Resume sertraline. We will stop lorazepam as patient appears to be encephalopathic. 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 She was given Seroquel for general agitation and anxiety in hopes of making him more comfortable. We will continue for now. #. Acute exacerbation of chronic diastolic congestive heart failure, present on admission, Resolved. At time of admission Patient has noted orthopnea, exertional dyspnea and lower extremity edema over the last week. BNP is also significantly elevated at 25, 000. Clinical impression was acute diastolic CHF due to atrial fibrillation with RVR. He subsequently has developed poor by mouth fluid intake and rising serum creatinine His IV fluids are currently at 75 miles an hour as he is eating very little. No evidence of decompensation. #. Falling episodes, acute on chronic. Stable. No recent falls in last 2 days. Several episodes during this inpatient hospitalization. Most recently with trauma and fracture of left arm. He is left-handed. - I have advised patient he must consider SNF placement due to his inability to manage at home even with significant assistance. Dr Mckenna did have a long conversation with the DPOA and have really discussed the fact that he not be able to discharge home safely and will require [facility] facility care. -We will plan for family meeting with the POA regarding placement #. Muscular deconditioning, not present on admission and active and worsening. Patient does not seem able to safely ambulate short distances. He is anticoagulated. Fall on 09/16/16 did not result in brain bleeding. He refuses to consider discharge to SNF - Continue physical therapy after patient has been okayed by orthopedics - Plan discharge to SNF after testing of elbow fracture. #. Recent history of pulmonary embolism, present on admission, active. We do not have records of this diagnosis. Patient's INR was subtherapeutic on admission. - Warfarin management per pharmacy. This is therapeutic, no change in current therapy. - Currently had been holding warfarin in advance of surgery, this is now canceled. Medically anticoagulation is indicated, however the patient is such a high fall risk that the risks of using this are very high. We will continue to consider the best course of action. #. Troponin elevation, present on admission. Resolved. Troponin level 0.042- 0.066 with no clear temporal pattern to suggest coronary ischemia, even with heart rate greater than 160. - Troponin elevation likely secondary to demand ischemia from rapid rate. No further workup. #. ESBL proteus UTI, present on admission. Resolved. - No clinical symptoms aside from generalized weakness. He has history of relatively asymptomatic infections in the past. - Ertapenem initiated on 09/02/16, course completed on 09/15/16. Now discontinued - Infectious disease consult by Dr. Summers. There is one additional culture revealing ertapenem resistant species. Infectious disease is aware. #. Acute on chronic respiratory failure with hypercarbia and hypoxia, present on admission, Resolved. At time of admission, likely secondary to diastolic CHF from rapid A. fib. Moderate sized right sided pleural effusions on CT. Patient reports a recent thoracentesis at [facility] in [place]. Procalcitonin negative. - Continue his usual Ipratropium every 4 hours while awake, levalbuterol every 2 hours as needed for shortness of breath #. Diarrhea, not present on admission. Resolved. #. Chronic kidney disease stage IV, POA and stable -Appears to be patient's baseline. -Continue to monitor #. Enterocutaneous fistula, chronic. - Continue ostomy care #. Carboplatinum resistant Klebsiella colonization around stoma, POA and active. The patient remains in double isolation. CODE STATUS: Full code We will have level care discussions with the patient's DPOAH (friend Darwin whose name is on the white board with phone number). Will begin looking for [facility] facilities that may be willing to accept him for ongoing care. VTE Prophylaxis: Theraputic Anticoag with Warfarin VTE Mechanical Devices: Intermittant Pneumatic CD Resuscitation Status: CPR: Attempt Resuscitation Time spent 30 minutes Sanaz Zimmer MD Sep 29, 2016 13:45
--- NOTE | 2016-09-29 13:45 | NUR ---
NUTRITION FOLLOW-UP: ASSESS: 76 YO male admitted with shortness of breath. Pt s/p fall with L humeral and olecranon fracture. Pt's mentation continues to vary. He has been on and off NPO status for possible surgery. PO intake has been variable due to mental status from 0-50%. Pt's last recorded wt was 09/23. PMHx: PTSD, anxiety and depression after being involved in combat in [place], bilateral cataracts, gastric bypass surgery, BPH, pyelonephritis, stage IV renal disease, RSV, enterocutaneous fistula requiring TPN. DIET: General, PB and crackers at 10, yogurt at 2, 2000 ML fluid restriction. PO intake 0-50%. LABS: Reviewed. Last labs 09/26 MEDICATIONS: Reviewed. GI: 2 BM 09/29. SKIN: No issues reported. ANTHROPOMETRICS: Current Wt: 75.0 kg. BMI 32.3 kg/m2, Admit weight: 78.1 kg . ESTIMATED NEEDS Calories: 8907-3721 kcal/day (22-25 kcal/kg) Protein: 75-95 g/day (1.0-1.2 g/kg) NUTRITION DIAGNOSIS: 1) Inconsistent PO intake related to inability to consume sufficient energy, as evidenced by 0-100% trays, likely due to significant psychological issues.--PERSISTS. INTERVENTION: 1) Continue current diet with supplements of PB w/ crackers @ 10 am and yogurt @ 2 pm. 2) Will monitor for new wt. Recommend obtaining weekly wts MONITOR/EVALUATE: PO intake, weight, labs, GI status, POC, nutrition status. Follow per moderate nutrition risk guidelines.
--- NOTE | 2016-09-29 16:18 | NUR ---
mentation/pain/nutrition pt alert and oriented this morning, with moments of irritability and uncooperativeness. pt reporting moderate to severe pain of his left arm in to his left side. prn oxycodone given per md order. pt placed on insecticide mixer for monitoring. pt sleeping most of shift. pt arrousible for patient care and for lunch. pt able to feed self a portion of lunch. pt reposition as he allowed for health of skin. care continues.
[2016-09-29 18:41] VITALS: BP 136/96; PULSE 122; RESP 22; O2SAT 94
[2016-09-29 21:50] VITALS: BP 133/86; PULSE 141; RESP 20; O2SAT 90
[2016-09-30 04:29] VITALS: BP 160/73; PULSE 106; RESP 20; O2SAT 92
[2016-09-30 04:52] LABS: BASOPHILS % (AUTO) 0.1 % (0-3); EOSINOPHILS % (AUTO) 1.3 % (0-5); MONOCYTES % (AUTO) 6.1 % (4-12); Mean Corpuscular Hemoglobin 31.2 pg (27.0-35.0); Mean Corpuscular Volume 95.5 fL (81-100); NEUTROPHILS % (AUTO) 84.5 % (40-74); Platelet Count 449 bil/L (150-400)
--- NOTE | 2016-09-30 06:21 | NUR ---
Mentation/Rest/Pain Patient drowsy overnight with periods of sleep. Easily aroused, although confused about his location most of the time. Unaware of time or occasion. Calling out and conversing in his room when he is alone. Significant pain with turns, especially to the left.
[2016-09-30 07:41] VITALS: BP 179/118; PULSE 110; RESP 18; O2SAT 90
[2016-09-30] MEDS: Pantoprazole 20 mg ER24 Tablet PO SCH (09:17)
[2016-09-30] MEDS: Diltiazem CD 180 mg ER24 Capsule PO SCH (09:17)
[2016-09-30] MEDS: 0.9% Sodium Chloride 1,000 ML IV SCH ×2 (10:59→22:26)
--- NOTE | 2016-09-30 12:05 | PCM.PNMED ---
Subjective Date of Service Sep 30, 2016 Subjective Patient does have lots of discomfort when he gets moved for cleaning up by nursing. Did ask whether he wants a Elizondo catheter which she denies at this time. Exam Vital Signs Vital Sign - Last Date Time Temp Pulse Resp B/P Pulse Ox O2 Delivery O2 Flow Rate FiO2 09/30/16 09:10 Supplement Oxygen 09/30/16 07:41 36.9 110 18 179/118 90 2.00 Intake and Output 09/29/16 09/29/16 09/30/16 Cumulative From/Thru 15:00 23:00 07:00 08/31/16 15:43 - 09/30/16 06:53 Intake Total 1223 ml 1144 ml 100 ml 12853 ml Output Total 88281 ml Balance 1223 ml 1144 ml 100 ml 76907 ml Intake Oral 440 ml 100 ml 86859 ml IV Total 1223 ml 704 ml 62827 ml Output Urine Total 03567 ml Stool Total 60 ml Drainage Total 50 ml # Voids 3 1 47 # Bowel Movements 1 1 46 Exam Constitutional: Elderly male in no acute distress Head: Normocephalic atraumatic Chest: Decreased breath sounds at bases Cor: Irregular regular rate and rhythm S1-S2 without murmur Abdomen: Soft nontender ostomy in place with light brown stool looser in consistency present Extremities: No pedal edema Skin: No rashes Psych: Flat affect Lab and Diagnostics Laboratory Tests 72 Hours Test 09/27/16 13:45 09/30/16 04:39 Prothrombin Time 31.5sec (8.1-12.5) Prothromb Time International Ratio 2.88ratio White Blood Count 8.2th/mm3 (3.8-10.1) Red Blood Count 3.08mil/mm3 (4.40-5.80) Hemoglobin 9.6g/dL (13.8-17.2) Hematocrit 29.4% (41.0-50.0) Mean Corpuscular Volume 95.5fL (81-100) Mean Corpuscular Hemoglobin 31.2pg (27.0-35.0) Mean Corpuscular Hemoglobin Concent 32.7% (32.0-37.0) Red Cell Distribution Width 14.5% (12.3-15.4) Platelet Count 449bil/L (150-400) Neutrophils (%) (Auto) 84.5% (40-74) Lymphocytes (%) (Auto) 7.6% (14-46) Monocytes (%) (Auto) 6.1% (4-12) Eosinophils (%) (Auto) 1.3% (0-5) Basophils (%) (Auto) 0.1% (0-3) Sodium Level 142mEq/L (134-144) Potassium Level 3.6mEq/L (3.5-5.2) Chloride Level 108mEq/L (97-108) Carbon Dioxide Level 22mmol/L (18-29) Blood Urea Nitrogen 22mg/dL (8-27) Creatinine 1.42mg/dL (0.76-1.27) Estimat Glomerular Filtration Rate 52mL/min (>59) Glucose Level 86mg/dL (60-99) Calcium Level 8.3mg/dL (8.5-10.1) Total Bilirubin 0.2mg/dL (0.0-1.2) Aspartate Amino Transf (AST/SGOT) 27U/L (0-50) Alanine Aminotransferase (ALT/SGPT) 11U/L (0-44) Alkaline Phosphatase 85U/L (25-160) Total Protein 5.6g/dL (6.4-8.4) Albumin 3.0g/dL (3.4-5.0) Result Diagram: 09/30/169 09/30/16 0439 X-Rays, CTs and MRIs CT CHEST WITHOUT CONTRAST IMPRESSION: Small to moderate bilateral pleural effusions with adjacent atelectasis. Additional patchy consolidation in the left lung base possibly pneumonia or aspiration. Please correlate clinically. Mild cardiomegaly. Circumferential lower chest wall edema, possibly third spacing/anasarca. Please correlate clinically. Dictated by: Rizwan Orta M.D. on 08/31/2016 at 18:13 X-RAY CHEST ONE VIEW, PORTABLE IMPRESSION: The bibasilar pneumonia, left greater than right, possible mild or early pneumonia right upper lobe. 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 Dictated by: William Baker M.D. on 08/31/2016 at 16:23 PROCEDURE: X-RAY CHEST, TWO VIEWS ([id number]) IMPRESSION: Retrocardiac left lower lobe pneumonia, while mild right upper lobe scarring. Dictated by: William Baker M.D. on 09/10/2016 at 17:23 Approved by: William Baker M.D. on 09/10/2016 at 17:23 PROCEDURE: CT BRAIN WITHOUT CONTRAST ([id number]) IMPRESSION: No CT evidence of acute intracranial pathology. Dictated by: Antwon Miller M.D. on 09/17/2016 at 13:33 PROCEDURE: X-RAY LEFT SHOULDER, MINIMUM TWO VIEWS ([id number]) IMPRESSION: 1. Mildly impacted acute fracture of the left humeral neck. 2. Nonacute nonunited lateral left clavicle fracture. 3. Severe left glenohumeral joint degeneration. Dictated by: Enoch Zhu M.D. on 09/18/2016 at 18:25 PROCEDURE: X-RAY LEFT ELBOW, TWO VIEWS ([id number]) IMPRESSION: Mildly displaced comminuted intra-articular fracture of the olecranon. Dictated by: Enoch Zhu M.D. on 09/18/2016 at 18:27 . Cardiac Echo Impressions Interpretation Summary Left ventricular systolic function is normal without focal wall motion abnormalities. The ejection fraction is estimated to be 60-65%. LVEF has not changed since priro study. Left ventricular wall thickness is mild-moderately increased. The right ventricle is at the upper limits of normal in size. The right ventricular systolic function is normal. Right ventricular systolic pressure is estimated to be 20 mmHg plus the clinically estimated CVP which cannot be estimated on this exam. The left atrium is severely dilated. The right atrium is severely dilated. There is mild mitral regurgitation. There is no other significant valvular heart disease. The aortic root is mildly dilated. The ascending aorta is mildly enlarged. The aortic arch is mildly enlarged. E/E' med: 15.1 Assessment & Plan #. Severe metabolic encephalopathy, relatively new and worsening. His mental status is still oscillating. He is more clear today. We will continue to follow to see if he improves or not. There is really no reversible cause of his encephalopathy that is identifiable at this time. Patient's mental status has been ongoing waxing and waning and hence he is not capable to be sent home and will need placement. Given his current altered mental status I do not think he has the capacity to make a decision for placement. The other issue is with his left humeral and olecranon fracture he will not be able to take care of his ostomy and hence needs placement if only from that perspective. Given his current mental status he will need placement to be in a safe environment. #. Left humeral and olecranon fracture, acute and active. Orthopedics is electing to not operate but rather to place a cast at this time. This seems very reasonable. The patient has a left elbow fracture and the left humeral head fracture. The patient cannot be placed in a sling after which will help with him humerus fracture pain as well as mitigate his impulsive movements. #. Acute kidney injury. Not present on admission and improving. Continue IV fluids, check electrolytes tomorrow #. Atrial fibrillation which is rate controlled, POA and active. The patient will require resumption of blood thinners. Given proximity to surgery and his therapeutic INR just up until 2 days ago we will possibly hold until postoperative phase and then resume anticoagulation. Fortunately patient continues to be a severe fall risk and this is a relative contraindication to anticoagulation. We will recheck his INR today. The patient has been on Coumadin which was held recently. The only role problem with visit the patient really is a very high fall risk and probably should not be anticoagulated but rather just converted to aspirin when his pro time drifts down a bit further. #. Acute on chronic anxiety, History of PTSD and depression. Active and stable. Patient feels significantly anxious and claustrophobic. Processes limited trust with care providers at [facility]. Will leave the door open. We do not have accurate medication records and he claims his [facility] give him twice daily lorazepam. He seems intermittently somewhat sedated on this regimen - Lorazepam 1 mg twice a day, continue for now, if no encephalopathy - Resume sertraline. We will stop lorazepam as patient appears to be encephalopathic. 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 She was given Seroquel for general agitation and anxiety in hopes of making him more comfortable. We will continue for now. #. Acute exacerbation of chronic diastolic congestive heart failure, present on admission, Resolved. At time of admission Patient has noted orthopnea, exertional dyspnea and lower extremity edema over the last week. BNP is also significantly elevated at 25, 000. Clinical impression was acute diastolic CHF due to atrial fibrillation with RVR. He subsequently has developed poor by mouth fluid intake and rising serum creatinine His IV fluids are currently at 75 miles an hour as he is eating very little. No evidence of decompensation. #. Falling episodes, acute on chronic. Stable. No recent falls in last 2 days. Several episodes during this inpatient hospitalization. Most recently with trauma and fracture of left arm. He is left-handed. - I have advised patient he must consider SNF placement due to his inability to manage at home even with significant assistance. Dr Mckenna did have a long conversation with the DPOA and have really discussed the fact that he not be able to discharge home safely and will require longterm facility care. -We will plan for family meeting with the POA regarding placement #. Muscular deconditioning, not present on admission and active and worsening. Patient does not seem able to safely ambulate short distances. He is anticoagulated. Fall on 09/16/16 did not result in brain bleeding. He refuses to consider discharge to SNF - Continue physical therapy after patient has been okayed by orthopedics - Plan discharge to SNF after testing of elbow fracture. #. Recent history of pulmonary embolism, present on admission, active. We do not have records of this diagnosis. Patient's INR was subtherapeutic on admission. - Warfarin management per pharmacy. This is therapeutic, no change in current therapy. - Currently had been holding warfarin in advance of surgery, this is now canceled. Medically anticoagulation is indicated, however the patient is such a high fall risk that the risks of using this are very high. We will continue to consider the best course of action. #. Troponin elevation, present on admission. Resolved. Troponin level 0.042- 0.066 with no clear temporal pattern to suggest coronary ischemia, even with heart rate greater than 160. - Troponin elevation likely secondary to demand ischemia from rapid rate. No further workup. #. ESBL proteus UTI, present on admission. Resolved. - No clinical symptoms aside from generalized weakness. He has history of relatively asymptomatic infections in the past. - Ertapenem initiated on 09/02/16, course completed on 09/15/16. Now discontinued - Infectious disease consult by Dr. Summers. There is one additional culture revealing ertapenem resistant species. Infectious disease is aware. -Get repeat urinalysis on September 30 to make sure no recurrence of UTI. #. Acute on chronic respiratory failure with hypercarbia and hypoxia, present on admission, Resolved. At time of admission, likely secondary to diastolic CHF from rapid A. fib. Moderate sized right sided pleural effusions on CT. Patient reports a recent thoracentesis at [facility] in [place]. Procalcitonin negative. - Continue his usual Ipratropium every 4 hours while awake, levalbuterol every 2 hours as needed for shortness of breath #. Diarrhea, not present on admission. Resolved. #. Chronic kidney disease stage IV, POA and stable -Appears to be patient's baseline. -Continue to monitor #. Enterocutaneous fistula, chronic. - Continue ostomy care #. Carboplatinum resistant Klebsiella colonization around stoma, POA and active. The patient remains in double isolation. CODE STATUS: Full code We will have level care discussions with the patient's DPOAH (friend Darwin whose name is on the white board with phone number). Will begin looking for longterm facilities that may be willing to accept him for ongoing care. VTE Prophylaxis: Theraputic Anticoag with Warfarin VTE Mechanical Devices: Intermittant Pneumatic CD Resuscitation Status: CPR: Attempt Resuscitation Time spent 30 minutes Sanaz Zimmer MD Sep 30, 2016 12:05
--- NOTE | 2016-09-30 15:07 | NUR ---
ST attempted to complete Bedside swallow, however family meeting occurring in patients room per NSG. Pt unavailable for eval at this time. ST will F/U with bedside eval in the am. NSG informed that SENIOR ADVISORY will follow up with Bedside eval in the am.
--- NOTE | 2016-09-30 16:13 | NUR ---
Social Work- Family Care Conference Donovan Benítez and DANIAL Granados met with NATALIE Russell and Dr. Zimmer at bedside regarding goals of care. Pt is very hard of hearing and requires speaking into his microphone. With explanation, pt responding appropriately to simple questions. Doctor discussed code status with pt's input and pt requested CPR and to remain full code. Pt also expressed a goal of comfort, but also stated that he wanted to return home eventually. Pt is agreeable that he needs a facility to care for himself and that he is not able to return home with his arm in a splint. Pt has not been participating well with care during this admission. When it was discussed that pt would have to participate with all skilled therapies in a rehab setting, pt was agreeable to this. Pt's participation in the hospital has not been in line with this statement. SW spoke with pt's DPJOANNA Granados alone regarding goals of care and discharge planning. Explained the difference between hospice and rehab. Explained pt's habits and participation with care here at the hospital. Pt's DPOA is aware that pt's actions and statements are at odds. DPOA wonders if pt even understands enough to weigh in to the situation. DPOA expressed goal to keep pt as local as possible so that DPOA could be involved in his care/end of life as much as able. Pt's DPOA wondered out loud if pt is hospice appropriate as he acknowledges that pt has been steadily declining and is likely not going to return to his PLOF. SW explained the role of hospice, MCR coverage, and out of pocket room and board cost. Pt's DPOA does not have access to pt's finances at this time and pt has been working with a architect naval to obtain a financial picture for pt. [facility] then pt's room and board at a nursing facility will likely be covered to bring in hospice services. Pt's DPOA seemed overwhelmed by this information and requested some time to think about pt's needs in the future. Pt's DPOA is aware that pt likely does not have a full grasp on the complexity of his care and his prognosis. Pt is hopeful that he will improve. SW encouraged pt's DPOA to contact DOCUMENT MANAGEMENT CONSULTANT with any additional thoughts and questions, contact information provided. Pt's DPOA alluded that it would be next week before any decision was made. Pt's strict isolation precautions may be a concern and a barrier to referring facilities. Unclear if pt will require removal of isolation precautions prior to d/c to a SNF for rehab or hospice services. No clear d/c plan determined at this time. After this care conference, pt's financial planners were unwilling to enter the room to discuss finances with pt and DPOA. Unclear when accurate financial information will be known. SW will continue to follow this pt. Yvonne Lakhani MSW
--- NOTE | 2016-09-30 16:38 | PCM.ADCARE ---
Advance Care Planning Note Purpose of Encounter: To discuss goals of care and resuscitation status Parties in Attendance: Patient, case management, agents DPOA Decisional Capacity: He does have some decisional capacity although this does seem to wax and wane at times Subjective: Patient at times is not cooperative with physical therapy. He also at times refuses to get in aspiration precautions for eating. Objective: Please see progress note for physical exam today. Goals of Care Determinations: Patient wishes to maximize comfort and have this few interventions as necessary however when asked about resuscitation does wish full code at this time. Plan: Also upon review we discuss necessity to be placed in a care facility with progressive physical therapy and rehabilitation as a goal. Patient is amenable to this. CODE STATUS: Full code Time Spent Adv.Care Plannin minutes Sanaz Zimmer MD Sep 30, 2016 16:38
--- NOTE | 2016-09-30 18:46 | NUR ---
anxiety pt very anxious about things this shift. Concerned that he has to get out of bed, explained to pt that he is staying here in the hospital and he gets angry and upset. He slumps to the right side of the bed and will sometimes let staff reposition him and others he will refuse. Pt incontinent of urine, does not like having mike-care performed and will fight this sometimes. Pt removed the splint from his arm today himself. Stated that it was too tight and he had to take it off. Dr Thomas came to reapply it and he asked "well how am I going to take it off if you put it on?" explained that this was not supposed to happen, it needs to stay on as the bones are broken. Dr Thomas states PA will replace tomorrow.
--- NOTE | 2016-09-30 19:51 | CONS ---
[address] [address] CONSULTATION REPORT PATIENT: JAYLEN LOPEZ : 1940 MR#: [id number] ADMIT: 08/31/2016 JOB ID: [id number] DATE OF SERVICE: cpt code 87676 09/30/2016 ORTHOPEDIC CONSULTATION FOLLOWUP: This is a 76-year-old male with multiple medical problems who fell while in the hospital and sustained a comminuted left olecranon fracture. He was initially seen by Dr. Garcia. Evidently with all of his other multiple medical problems he had opted for no surgery. The patient has significant mental status issues. The patient was placed in a posterior splint but he removed the splint. The nurses asked me to replace the splint today. OBJECTIVE: Left upper extremity: The patient has ecchymoses but the skin is intact. He has some mild swelling. He is able to move his fingers. PLAN: The patient's arm was wrapped with cast padding and I placed him back in his posterior splint. I believe the posterior splint could be changed to a more conforming posterior splint and hopefully the patient will keep the splint in place. Evidently the patient is not a good surgical candidate. He currently has pneumonia. He also has a left humeral neck fracture. The patient also has exacerbation of his chronic congestive heart failure and problems with chronic episodes of falling and a recent history of pulmonary embolism. Will change the splint to a more well-molded cut splint some time over the weekend. The patient is not planning any surgical intervention. CC: [facility]
[2016-09-30 22:27] VITALS: BP 152/82; PULSE 137; RESP 16; O2SAT 93
--- NOTE | 2016-10-01 06:30 | NUR ---
Confusion Confused at baseline all shift. Removed ostomy bag and part of zaida wrap to soft cast. New ostomy appliance and zaida wrap applied. Multiple attempts to orient unsuccessful.
[2016-10-01] MEDS: Pantoprazole 20 mg ER24 Tablet PO SCH (06:36)
[2016-10-01 08:02] VITALS: BP 131/81; PULSE 65; RESP 24; O2SAT 98
[2016-10-01] MEDS: Diltiazem CD 180 mg ER24 Capsule PO SCH (08:19)
--- NOTE | 2016-10-01 09:23 | NUR ---
Evaluation completed. Please go to "Notes" then click on "Assessments and Notes" (bottom left corner of screen). Then select appropriate discipline tab on top of screen.
--- NOTE | 2016-10-01 10:06 | PCM.PNORTH ---
Subjective Date of Service: Oct 01, 2016 Visit Information: Reason for Visit Sob/Pneumonia/Acs/Chf Surgery/Surgery Date Post-Op Day # Date of Admission: Aug 31, 2016 at 19:38 Hospital Day # Subjective Found the patient awake and alert this morning with no complaints of elbow pain. Discussed changing patient's left arm splint per Dr. Hakeem Thomas's request and patient is agreeable to this. Postop General: No Complaints, No Shortness of Breath (labored and rapid breathing is noted.) Pain Management: PO Objective Exam Objective Patient is alert, communicative and follows directions. There appears to be some cognitive dysfunction. Left upper extremity is found to be in a posterior 4 inch fiberglass splint and is flexed approximately 45 at the elbow. Posterior splint is replaced with 3 inch fiberglass splint which is a better fit for the patient's arm size. Splint is placed and rewrapped with Cornell wrap and arm is placed in comfortable position while splint dries. Patient has wrist and finger function per baseline. Vital Signs and I/O Vital Sign - Last Date Time Temp Pulse Resp B/P Pulse Ox O2 Delivery O2 Flow Rate FiO2 10/01/16 08:02 Supplement Oxygen 10/01/16 08:02 36.8 65 24 131/81 98 09/30/16 07:41 2.00 Intake and Output 09/30/16 09/30/16 10/01/16 Cumulative From/Thru 15:00 23:00 07:00 08/31/16 15:43 - 10/01/16 06:27 Intake Total 400 ml 113 ml 10674 ml Output Total 19635 ml Balance 400 ml 113 ml 41142 ml Intake Oral 400 ml 113 ml 42157 ml IV Total 0 ml 20890 ml Output Urine Total 19493 ml Stool Total 60 ml Drainage Total 50 ml # Voids 3 2 52 # Bowel Movements 1 47 Lab & Micro Results Microbiology 08/31/16 Blood Culture - Final, Complete NO GROWTH AFTER 5 DAYS 09/10/16 Campylobacter (PCR) - Final, Complete Not Detected 09/10/16 Clostridium difficile Toxin A&B (M) - Final, Complete Not Detected 09/10/16 Plesiomonas shigelloides (PCR) - Final, Complete Not Detected 09/10/16 Salmonella (PCR)(BURT) - Final, Complete Not Detected 09/10/16 Yersinia enterocolitica (PCR) - Final, Complete Not Detected 09/10/16 Vibrio Species (PCR) - Final, Complete Not Detected 09/10/16 Vibrio Cholerae (PCR) - Final, Complete Not Detected 09/10/16 Enteroaggregative E. coli (PCR) - Final, Complete Not Detected 09/10/16 Enteropathogenic E. coli (PCR) - Final, Complete Not Detected 09/10/16 Enterotoxigenic E. coli (PCR) - Final, Complete Not Detected 09/10/16 E. coli Shiga-like Toxin (PCR) - Final, Complete Not Detected 09/10/16 Escherichia coli 0157 (PCR) - Final, Complete Not Detected 09/10/16 Enteroinvasive E. coli/Shigella PCR - Final, Complete Not Detected 09/10/16 Cryptosporidium (PCR) - Final, Complete Not Detected 09/10/16 Cyclospora cayetanensis (PCR) - Final, Complete Not Detected 09/10/16 Entamoeba histolytica (PCR) - Final, Complete Not Detected 09/10/16 Giardia lamblia (PCR) - Final, Complete Not Detected 09/10/16 Adenovirus Type F 40/41 (PCR) - Final, Complete Not Detected 09/10/16 Astrovirus (PCR) - Final, Complete Not Detected 09/10/16 Norovirus (PCR) - Final, Complete Not Detected 09/10/16 Rotavirus A (PCR) - Final, Complete Not Detected 09/10/16 Sapovirus I/II/IV/V (PCR) - Final, Complete 09/11/16 Adenovirus DNA (PCR) - Final, Complete Not Detected 09/11/16 Coronavirus 229E PCR - Final, Complete Not Detected 09/11/16 Coronavirus HKU1 PCR - Final, Complete Not Detected 09/11/16 Coronavirus NL63 PCR - Final, Complete Not Detected 09/11/16 Coronavirus OC43 PCR - Final, Complete Not Detected 09/11/16 Influenza Type A (PCR) - Final, Complete Not Detected 09/11/16 Influenza Type B (PCR) - Final, Complete Not Detected 09/11/16 Human Metapneumovirus (PCR) (BURT) - Final, Complete Not Detected 09/11/16 Rhinovirus (PCR)(BURT) - Final, Complete Not Detected 09/11/16 Parainfluenza Virus Type 1 (PCR) - Final, Complete Not Detected 09/11/16 Parainfluenza Virus Type 2 (PCR) - Final, Complete Not Detected 09/11/16 Parainfluenza Virus Type 3 (PCR) - Final, Complete Not Detected 09/11/16 Parainfluenza Virus Type 4 (NAAT) - Final, Complete Not Detected 09/11/16 Respiratory Syncytial Virus (PCR)ID - Final, Complete Not Detected 09/11/16 Chlamydia pneumoniae (PCR) - Final, Complete Not Detected 09/11/16 Mycoplasma pneumoniae DNA Detection - Final, Complete 08/31/16 Urine Culture - Final, Complete Proteus Mirablis Esbl Poll Clerk Mixed Urogenital Poonam 09/06/16 Gram Stain - Final, Complete 09/06/16 Culture & Sensitivity - Final, Complete Carbapenem R Klebsiella Spp. With Normal Poonam 09/06/16 Anaerobic Culture - Final, Complete No anaerobes isolated Result Diagram: 09/30/1643809/30/16438 General Appearance: Alert, Cooperative Extremities: No Compartment Syndrom Noted Postop Sensory Motor: Distal Motor Intact, Movement in Fingers SURGICAL WOUND : Drain Location Body Site: Abdomen Wound Drainage Type: Entercutaneous fistula Assessment & Plan Plan Post admission day #1 from left olecranon comminuted fracture with consult by Dr. Hakeem Thomas. Continue nonweightbearing at the left upper extremity using posterior wrap on fiberglass splint. Pain control and DVT prophylaxis per hospitalist service. Left elbow splint is changed today to improve fit as directed by Dr. Thomas. Nursing please complete neurovascular checks at left upper extremity distally. Per Dr. Hakeem Thomas patient is not planning on surgical treatment of this fracture at this time. Follow-up in 2 weeks at [facility] orthopedic clinic with Dr. Hakeem Thomas with x-rays. Orthopedics thanks hospitalist service for their help in the medical management of this patient. Orthopedics will sign off on this patient at this time but as always remain available for consultation and treatment as needed. Anticipate discharge by hospitalist service when patient is medically stable to do so to venue as required per his condition. VTE Prophylaxis: Theraputic Anticoag with Warfarin Resuscitation Status: CPR: Attempt Resuscitation Ronnie Cornejo PA-C Oct 01, 2016 10:06
[2016-10-01 11:20] VITALS: BP 144/78; PULSE 88; RESP 22; O2SAT 94
[2016-10-01] MEDS: 0.9% Sodium Chloride 1,000 ML IV SCH (13:42)
--- NOTE | 2016-10-01 15:10 | PCM.PNMED ---
Subjective Date of Service Oct 01, 2016 Subjective Patient complaining of some left upper leg pain which he notes has been present previously. Exam Vital Signs Vital Sign - Last Date Time Temp Pulse Resp B/P Pulse Ox O2 Delivery O2 Flow Rate FiO2 10/01/16 11:20 36.6 88 22 144/78 94 Room Air 09/30/16 07:41 2.00 Intake and Output 09/30/16 09/30/16 10/01/16 Cumulative From/Thru 15:00 23:00 07:00 08/31/16 15:43 - 10/01/16 06:27 Intake Total 400 ml 113 ml 44460 ml Output Total 02756 ml Balance 400 ml 113 ml 48697 ml Intake Oral 400 ml 113 ml 84514 ml IV Total 0 ml 73461 ml Output Urine Total 47759 ml Stool Total 60 ml Drainage Total 50 ml # Voids 3 2 52 # Bowel Movements 1 47 Exam Constitutional: Elderly male in no acute distress Head: Normocephalic atraumatic Chest: Decreased breath sounds at bases Cor: Irregular regular rate and rhythm S1-S2 without murmur Abdomen: Soft nontender ostomy in place with light brown stool looser in consistency present Extremities: No pedal edema Skin: No rashes Psych: Flat affect Lab and Diagnostics Laboratory Tests 72 Hours Test 09/30/16 04:39 White Blood Count 8.2th/mm3 (3.8-10.1) Red Blood Count 3.08mil/mm3 (4.40-5.80) Hemoglobin 9.6g/dL (13.8-17.2) Hematocrit 29.4% (41.0-50.0) Mean Corpuscular Volume 95.5fL (81-100) Mean Corpuscular Hemoglobin 31.2pg (27.0-35.0) Mean Corpuscular Hemoglobin Concent 32.7% (32.0-37.0) Red Cell Distribution Width 14.5% (12.3-15.4) Platelet Count 449bil/L (150-400) Neutrophils (%) (Auto) 84.5% (40-74) Lymphocytes (%) (Auto) 7.6% (14-46) Monocytes (%) (Auto) 6.1% (4-12) Eosinophils (%) (Auto) 1.3% (0-5) Basophils (%) (Auto) 0.1% (0-3) Sodium Level 142mEq/L (134-144) Potassium Level 3.6mEq/L (3.5-5.2) Chloride Level 108mEq/L (97-108) Carbon Dioxide Level 22mmol/L (18-29) Blood Urea Nitrogen 22mg/dL (8-27) Creatinine 1.42mg/dL (0.76-1.27) Estimat Glomerular Filtration Rate 52mL/min (>59) Glucose Level 86mg/dL (60-99) Calcium Level 8.3mg/dL (8.5-10.1) Total Bilirubin 0.2mg/dL (0.0-1.2) Aspartate Amino Transf (AST/SGOT) 27U/L (0-50) Alanine Aminotransferase (ALT/SGPT) 11U/L (0-44) Alkaline Phosphatase 85U/L (25-160) Total Protein 5.6g/dL (6.4-8.4) Albumin 3.0g/dL (3.4-5.0) Result Diagram: 09/30/16 0439 09/30/16 0439 X-Rays, CTs and MRIs CT CHEST WITHOUT CONTRAST IMPRESSION: Small to moderate bilateral pleural effusions with adjacent atelectasis. Additional patchy consolidation in the left lung base possibly pneumonia or aspiration. Please correlate clinically. Mild cardiomegaly. Circumferential lower chest wall edema, possibly third spacing/anasarca. Please correlate clinically. Dictated by: Rizwan Orta M.D. on 08/31/2016 at 18:13 X-RAY CHEST ONE VIEW, PORTABLE IMPRESSION: The bibasilar pneumonia, left greater than right, possible mild or early pneumonia right upper lobe. 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 Dictated by: William Baker M.D. on 08/31/2016 at 16:23 PROCEDURE: X-RAY CHEST, TWO VIEWS ([id number]) IMPRESSION: Retrocardiac left lower lobe pneumonia, while mild right upper lobe scarring. Dictated by: William Baker M.D. on 09/10/2016 at 17:23 Approved by: William Baker M.D. on 09/10/2016 at 17:23 PROCEDURE: CT BRAIN WITHOUT CONTRAST ([id number]) IMPRESSION: No CT evidence of acute intracranial pathology. Dictated by: Antwon Miller M.D. on 09/17/2016 at 13:33 PROCEDURE: X-RAY LEFT SHOULDER, MINIMUM TWO VIEWS ([id number]) IMPRESSION: 1. Mildly impacted acute fracture of the left humeral neck. 2. Nonacute nonunited lateral left clavicle fracture. 3. Severe left glenohumeral joint degeneration. Dictated by: Enoch Zhu M.D. on 09/18/2016 at 18:25 PROCEDURE: X-RAY LEFT ELBOW, TWO VIEWS ([id number]) IMPRESSION: Mildly displaced comminuted intra-articular fracture of the olecranon. Dictated by: Enoch Zhu M.D. on 09/18/2016 at 18:27 . Cardiac Echo Impressions Interpretation Summary Left ventricular systolic function is normal without focal wall motion abnormalities. The ejection fraction is estimated to be 60-65%. LVEF has not changed since priro study. Left ventricular wall thickness is mild-moderately increased. The right ventricle is at the upper limits of normal in size. The right ventricular systolic function is normal. Right ventricular systolic pressure is estimated to be 20 mmHg plus the clinically estimated CVP which cannot be estimated on this exam. The left atrium is severely dilated. The right atrium is severely dilated. There is mild mitral regurgitation. There is no other significant valvular heart disease. The aortic root is mildly dilated. The ascending aorta is mildly enlarged. The aortic arch is mildly enlarged. E/E' med: 15.1 Assessment & Plan #. Severe metabolic encephalopathy, relatively new and worsening. His mental status is still oscillating. He is more clear today. We will continue to follow to see if he improves or not. There is really no reversible cause of his encephalopathy that is identifiable at this time. Patient's mental status has been ongoing waxing and waning and hence he is not capable to be sent home and will need placement. Given his current altered mental status I do not think he has the capacity to make a decision for placement. The other issue is with his left humeral and olecranon fracture he will not be able to take care of his ostomy and hence needs placement if only from that perspective. Given his current mental status he will need placement to be in a safe environment. #. Left humeral and olecranon fracture, acute and active. Orthopedics is electing to not operate but rather to place a cast at this time. This seems very reasonable. The patient has a left elbow fracture and the left humeral head fracture. The patient cannot be placed in a sling after which will help with him humerus fracture pain as well as mitigate his impulsive movements. #. Acute kidney injury. Not present on admission and improving. Continue IV fluids, check electrolytes tomorrow #. Atrial fibrillation which is rate controlled, POA and active. The patient will require resumption of blood thinners. Given proximity to surgery and his therapeutic INR just up until 2 days ago we will possibly hold until postoperative phase and then resume anticoagulation. Fortunately patient continues to be a severe fall risk and this is a relative contraindication to anticoagulation. We will recheck his INR today. The patient has been on Coumadin which was held recently. The only role problem with visit the patient really is a very high fall risk and probably should not be anticoagulated but rather just converted to aspirin when his pro time drifts down a bit further. #. Acute on chronic anxiety, History of PTSD and depression. Active and stable. Patient feels significantly anxious and claustrophobic. Processes limited trust with care providers at [facility]. Will leave the door open. We do not have accurate medication records and he claims his [facility] give him twice daily lorazepam. He seems intermittently somewhat sedated on this regimen - Lorazepam 1 mg twice a day, continue for now, if no encephalopathy - Resume sertraline. We will stop lorazepam as patient appears to be encephalopathic. 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 She was given Seroquel for general agitation and anxiety in hopes of making him more comfortable. We will continue for now. #. Acute exacerbation of chronic diastolic congestive heart failure, present on admission, Resolved. At time of admission Patient has noted orthopnea, exertional dyspnea and lower extremity edema over the last week. BNP is also significantly elevated at 25, 000. Clinical impression was acute diastolic CHF due to atrial fibrillation with RVR. He subsequently has developed poor by mouth fluid intake and rising serum creatinine His IV fluids are currently at 75 miles an hour as he is eating very little. No evidence of decompensation. #. Falling episodes, acute on chronic. Stable. No recent falls in last 2 days. Several episodes during this inpatient hospitalization. Most recently with trauma and fracture of left arm. He is left-handed. - I have advised patient he must consider SNF placement due to his inability to manage at home even with significant assistance. Dr Mckenna did have a long conversation with the DPOA and have really discussed the fact that he not be able to discharge home safely and will require jail facility care. -We will plan for family meeting with the POA regarding placement #. Muscular deconditioning, not present on admission and active and worsening. Patient does not seem able to safely ambulate short distances. He is anticoagulated. Fall on 09/16/16 did not result in brain bleeding. He refuses to consider discharge to SNF - Continue physical therapy after patient has been okayed by orthopedics - Plan discharge to SNF after testing of elbow fracture. #. Recent history of pulmonary embolism, present on admission, active. We do not have records of this diagnosis. Patient's INR was subtherapeutic on admission. - Warfarin management per pharmacy. This is therapeutic, no change in current therapy. - Currently had been holding warfarin in advance of surgery, this is now canceled. Medically anticoagulation is indicated, however the patient is such a high fall risk that the risks of using this are very high. We will continue to consider the best course of action. #. Troponin elevation, present on admission. Resolved. Troponin level 0.042- 0.066 with no clear temporal pattern to suggest coronary ischemia, even with heart rate greater than 160. - Troponin elevation likely secondary to demand ischemia from rapid rate. No further workup. #. ESBL proteus UTI, present on admission. Resolved. - No clinical symptoms aside from generalized weakness. He has history of relatively asymptomatic infections in the past. - Ertapenem initiated on 09/02/16, course completed on 09/15/16. Now discontinued - Infectious disease consult by Dr. Summers. There is one additional culture revealing ertapenem resistant species. Infectious disease is aware. #. Acute on chronic respiratory failure with hypercarbia and hypoxia, present on admission, Resolved. At time of admission, likely secondary to diastolic CHF from rapid A. fib. Moderate sized right sided pleural effusions on CT. Patient reports a recent thoracentesis at [facility] in [place]. Procalcitonin negative. - Continue his usual Ipratropium every 4 hours while awake, levalbuterol every 2 hours as needed for shortness of breath #. Diarrhea, not present on admission. Resolved. #. Chronic kidney disease stage IV, POA and stable -Appears to be patient's baseline. -Continue to monitor #. Enterocutaneous fistula, chronic. - Continue ostomy care #. Carboplatinum resistant Klebsiella colonization around stoma, POA and active. The patient remains in double isolation. CODE STATUS: Full code We will have level care discussions with the patient's DPOAH (friend Darwin whose name is on the white board with phone number). Will begin looking for jail facilities that may be willing to accept him for ongoing care. VTE Prophylaxis: Theraputic Anticoag with Warfarin VTE Mechanical Devices: Intermittant Pneumatic CD Resuscitation Status: CPR: Attempt Resuscitation Time spent 20 minutes Sanaz Zimmer MD Oct 01, 2016 15:10
--- NOTE | 2016-10-01 17:56 | NUR ---
Refusing Care 0919 - Received a message from Speech Therapy saying his diet would be changed to Dysphagia Mechanical and that he would be placed on nectar thick liquids. Staff are unsure if he will cooperate with his diet as he tends to want to do things his own way. About 1000 - Assisted Ronnie Cornejo CARSON in changing his left elbow soft cast. He tolerated it fairly well, but was experiencing some pain with movement. Refusing Care - Staff have attempted multiple times to clean him up or turn him. He has accepted at times, but refused other times. He has also eaten very little today. He said he was hungry around lunch time, but when offer his tray by the CHEMICAL OPERATIONS SPECIALIST he refused. Care continues.
[2016-10-01 20:00] VITALS: BP 150/103; PULSE 118; RESP 20; O2SAT 91
[2016-10-02] MEDS: 0.9% Sodium Chloride 1,000 ML IV SCH ×2 (02:06→16:25)
[2016-10-02 03:45] VITALS: BP 135/100; PULSE 86; RESP 20; O2SAT 96
--- NOTE | 2016-10-02 05:34 | NUR ---
P) LOC/Pain/Sleep Pt. awake and calling out most of shift, seemed to be hallucinating, frequently asking for his gun, not knowing where he was, etc. When asked what we could help him with he would become almost tearful and say, "I don't know". seemed to do some intermittent dozing, but nothing longer than 20 minutes. Pt. unwrapped his soft cast x2 so far, moaned with pain when rewrapped, also tore off ostomy appliance. I) Meds per 's orders, oxycodone dose did not seem to help much, pt. unable to quantify pain or even say if it was better, soft cast rewrapped. E) Continues confused and pulling at anything he can reach.
[2016-10-02] MEDS: Pantoprazole 20 mg ER24 Tablet PO SCH (06:35)
[2016-10-02 08:31] VITALS: BP 145/98; PULSE 88; RESP 20; O2SAT 90
[2016-10-02] MEDS: Diltiazem CD 180 mg ER24 Capsule PO SCH (10:55)
--- NOTE | 2016-10-02 11:46 | NUR ---
Social Work: Continued Discharge Planning/Multidisciplinary Rounds D: EMR reviewed. Pt is on day 32 of hospitalization. Pt discussed in multidisciplinary rounds, per MD, pt is medically stable for discharge to SNF. WILIAM met with pt at bedside and discussed pt's willingness to go to SNF. Pt is not able to hear without his headphones/hearing device. SW discussed SNF with pt's headphones on. Pt agreeable to go to SNF. SW asked if it was okay to coordinate SNF with pt's DANIAL Granados - pt agreeable. Pt asked if SNF would be covered by insurance. SW explained that SW will determine coverage prior to SNF transfer and update pt. T/C to DANIAL/Darwin - Darwin stated that pt is decisional - despite previous ideas that he is not. Darwin stated that pt can make decisions but only when he can hear (he must have headphones on to hear) - Darwin agreeable that pt does not have capacity for self-care at this time and will need SNF and potential LTC. SW discussed pt's options. Pt can go to SNF using MCR part A at 100% (depending on how many days he has remaining) and then transfer to [facility] SNF once MCR days are not covered at 100%. Darwin stated he wanted pt to be closer to him. SW updated Darwin that pt said he would like [place] or [place]. WILIAM discussed transferring pt to [facility] ([facility] facility) where he could use his remaining MCR days and then the [facility] would cover the remainder of his stay. WILIAM also explained that [facility] in [place] ([facility] facility) would provide the same ease of transfer per insurances. WILIAM explained that SW will need to determine pt's remaining MCR days (covered at 100%) and will update Darwin with information. T/C to Elina at [facility] [place] ([phone]). WILIAM explained pt wanting to discharge to SNF using MCR benefits (whatever days remaining at 100%) and then transfer insurance coverage to VA coverage once MCR days are no longer covered at 100%. WILIAM confirmed that pt will be going for rehab but may need LTC based on progression in rehab. Elina agreeable to review and determine remaining MCR days at 100%. WILIAM faxed H&P, PT notes, face sheet, and progress note to [phone]. Elina to follow-up with WILIAM today regarding remaining MCR days and referral. T/C and voicemail to Hugo in admissions at [facility] in [place]. SW will await return call to refer pt. Darwin stated he was upset with how providers attempted to speak with head teller regarding pt being decisional. He stated it was not appropriate and there is no written documentation stating pt can't make his own decisions. Darwin stated that pt appears to be non-decisional at times because he needs his headphones/hearing device to hear what people are saying. WILIAM provided Darwin with pt advocate phone number. Darwin agreeable. WILIAM to follow-up with Darwin, pt, and [facility] regarding SNF referral. NATALIE Chau Addendum: 10/02/16 at 1453 by EDWIN COMBS T/C from Elina at [facility] ([phone]) who confirmed pt has 72 MCR days left with coverage at 80%. Pt does not have financial means to cover co-pay at this time and would need to be admitted and authorized by the [facility]. WILIAM confirmed with Elina to hold referral and WILIAM will work with [facility] to authorize pt's stay on Monday. Elina agreeable. Elina stated Maggie will be the utilization review coordinator available tomorrow and she will update Maggie on referral status. NATALIE Chau
--- NOTE | 2016-10-02 13:11 | PCM.PNMED ---
Subjective Date of Service Oct 02, 2016 Subjective Refuse hygiene care multiple times. Appetite continues to lessen, refusing food. Creatinine remains elevated at 1.4 At time of interview patient resting comfortable, somewhat difficult to arouse. Does not have specific complaint. Exam Vital Signs Vital Sign - Last Date Time Temp Pulse Resp B/P Pulse Ox O2 Delivery O2 Flow Rate FiO2 10/02/16 03:45 36.6 86 20 135/100 96 Nasal Cannula 2.00 Intake and Output 10/01/16 10/01/16 10/02/16 Cumulative From/Thru 15:00 23:00 07:00 08/31/16 15:43 - 10/02/16 06:35 Intake Total 100 ml 1703 ml 28442 ml Output Total 1 ml 130 ml 80514 ml Balance 99 ml 1573 ml 19185 ml Intake Oral 100 ml 0 ml 84547 ml IV Total 1703 ml 23198 ml Output Urine Total 100 ml 97900 ml Stool Total 30 ml 90 ml Urine/Stool Mix 1 ml 1 ml Drainage Total 50 ml # Voids 1 53 # Bowel Movements 1 48 Exam General: Lying in hospital bed asleep, in no acute distress HEENT: Normocephalic, atraumatic. Neck: No jugular venous distension. Cardiovascular: Irregular rhythm with regular rate. No murmurs appreciated Pulmonary: Decreased breath sounds bilaterally, normal respiratory effort with no use of accessory muscles Abdomen: Soft, nontender, nondistended. Extremities: No clubbing, cyanosis, edema Skin: Normal temperature, turgor, and texture Neurological: Cranial nerves grossly intact. IVs and Medications Medications Reviewed: Medications were reviewed in detail Lab and Diagnostics Result Diagram: 09/30/16 0439 09/30/16 0439 X-Rays, CTs and MRIs CT CHEST WITHOUT CONTRAST IMPRESSION: Small to moderate bilateral pleural effusions with adjacent atelectasis. Additional patchy consolidation in the left lung base possibly pneumonia or aspiration. Please correlate clinically. Mild cardiomegaly. Circumferential lower chest wall edema, possibly third spacing/anasarca. Please correlate clinically. Dictated by: Rizwan Orta M.D. on 08/31/2016 at 18:13 X-RAY CHEST ONE VIEW, PORTABLE IMPRESSION: The bibasilar pneumonia, left greater than right, possible mild or early pneumonia right upper lobe. 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 Dictated by: William Baker M.D. on 08/31/2016 at 16:23 PROCEDURE: X-RAY CHEST, TWO VIEWS ([id number]) IMPRESSION: Retrocardiac left lower lobe pneumonia, while mild right upper lobe scarring. Dictated by: William Baker M.D. on 09/10/2016 at 17:23 Approved by: William Baker M.D. on 09/10/2016 at 17:23 PROCEDURE: CT BRAIN WITHOUT CONTRAST ([id number]) IMPRESSION: No CT evidence of acute intracranial pathology. Dictated by: Antwon Miller M.D. on 09/17/2016 at 13:33 PROCEDURE: X-RAY LEFT SHOULDER, MINIMUM TWO VIEWS ([id number]) IMPRESSION: 1. Mildly impacted acute fracture of the left humeral neck. 2. Nonacute nonunited lateral left clavicle fracture. 3. Severe left glenohumeral joint degeneration. Dictated by: Enoch Zhu M.D. on 09/18/2016 at 18:25 PROCEDURE: X-RAY LEFT ELBOW, TWO VIEWS ([id number]) IMPRESSION: Mildly displaced comminuted intra-articular fracture of the olecranon. Dictated by: Enoch Zhu M.D. on 09/18/2016 at 18:27 X-RAY CHEST ONE VIEW, PORTABLE IMPRESSION: 1. Persistent retrocardiac airspace opacity and interval increase in mid right lung and basilar air space opacity suspicious for aspiration or pneumonia. Continued radiographic surveillance to resolution is recommended Approved by: Mitra Marshall M.D. on 09/26/2016 Cardiac Echo Impressions Interpretation Summary Left ventricular systolic function is normal without focal wall motion abnormalities. The ejection fraction is estimated to be 60-65%. LVEF has not changed since priro study. Left ventricular wall thickness is mild-moderately increased. The right ventricle is at the upper limits of normal in size. The right ventricular systolic function is normal. Right ventricular systolic pressure is estimated to be 20 mmHg plus the clinically estimated CVP which cannot be estimated on this exam. The left atrium is severely dilated. The right atrium is severely dilated. There is mild mitral regurgitation. There is no other significant valvular heart disease. The aortic root is mildly dilated. The ascending aorta is mildly enlarged. The aortic arch is mildly enlarged. E/E' med: 15.1 Assessment & Plan #. Severe metabolic encephalopathy, relatively new and worsening. His mental status is still oscillating. He is very somnolent today. We will continue to follow to see if he improves or not. There is really no reversible cause of his encephalopathy that is identifiable at this time. Patient's mental status has been ongoing waxing and waning and hence he is not capable to be sent home and will need placement. Given his current altered mental status I do not think he has the capacity to make a decision for placement. The other issue is with his left humeral and olecranon fracture he will not be able to take care of his ostomy and hence needs placement if only from that perspective. Given his current mental status he will need placement to be in a safe environment. #. Left humeral and olecranon fracture, acute and active. Orthopedics is electing to not operate but rather to place a cast at this time. This seems very reasonable. The patient has a left elbow fracture and the left humeral head fracture. The patient cannot be placed in a sling after which will help with him humerus fracture pain as well as mitigate his impulsive movements. #. Acute kidney injury. Not present on admission and improving. Continue IV fluids, creatinine trending down slightly, continue to monitor with a.m. labs #. Atrial fibrillation which is rate controlled, POA and active. The patient will require resumption of blood thinners. Given proximity to surgery and his therapeutic INR just up until 2 days ago we will possibly hold until postoperative phase and then resume anticoagulation. Fortunately patient continues to be a severe fall risk and this is a relative contraindication to anticoagulation. INR 2.88 09/27/2016. The patient has been on Coumadin which was held recently. The only role problem with visit the patient really is a very high fall risk and probably should not be anticoagulated but rather just converted to aspirin when his pro time drifts down a bit further. We will continue to monitor #. Acute on chronic anxiety, History of PTSD and depression. Active and stable. Patient feels significantly anxious and claustrophobic. Processes limited trust with care providers at [facility]. Will leave the door open. We do not have accurate medication records and he claims [facility] him twice daily lorazepam. He seems intermittently somewhat sedated on this regimen We will stop lorazepam as patient appears to be encephalopathic. 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 - Continue venlafaxine - He was given Seroquel for general agitation and anxiety in hopes of making him more comfortable. We will continue for now. #. Acute exacerbation of chronic diastolic congestive heart failure, present on admission, Resolved. At time of admission Patient has noted orthopnea, exertional dyspnea and lower extremity edema over the last week. BNP is also significantly elevated at 25, 000. Clinical impression was acute diastolic CHF due to atrial fibrillation with RVR. He subsequently has developed poor by mouth fluid intake and rising serum creatinine His IV fluids are currently at 75 ml an hour as he is eating very little. No evidence of decompensation. #. Falling episodes, acute on chronic. Stable. No recent falls in last 2 days. Several episodes during this inpatient hospitalization. Most recently with trauma and fracture of left arm. He is left-handed. - I have advised patient he must consider SNF placement due to his inability to manage at home even with significant assistance. Dr Mckenna did have a long conversation with the OA and have really discussed the fact that he not be able to discharge home safely and will require [facility] facility care. -Currently awaiting placement #. Muscular deconditioning, not present on admission and active and worsening. Patient does not seem able to safely ambulate short distances. He is anticoagulated. Fall on 09/16/16 did not result in brain bleeding. He refuses to consider discharge to SNF - Continue physical therapy after patient has been okayed by orthopedics - Plan discharge to SNF after testing of elbow fracture. #. Recent history of pulmonary embolism, present on admission, active. We do not have records of this diagnosis. Patient's INR was subtherapeutic on admission. - Warfarin management per pharmacy. This is therapeutic, no change in current therapy. - Currently had been holding warfarin in advance of surgery, this is now canceled. Medically anticoagulation is indicated, however the patient is such a high fall risk that the risks of using this are very high. We will continue to consider the best course of action. #. Troponin elevation, present on admission. Resolved. Troponin level 0.042- 0.066 with no clear temporal pattern to suggest coronary ischemia, even with heart rate greater than 160. - Troponin elevation likely secondary to demand ischemia from rapid rate. No further workup. #. ESBL proteus UTI, present on admission. Resolved. - No clinical symptoms aside from generalized weakness. He has history of relatively asymptomatic infections in the past. - Ertapenem initiated on 09/02/16, course completed on 09/15/16. Now discontinued - Infectious disease consult by Dr. Summers. There is one additional culture revealing ertapenem resistant species. Infectious disease is aware. #. Acute on chronic respiratory failure with hypercarbia and hypoxia, present on admission, Resolved. At time of admission, likely secondary to diastolic CHF from rapid A. fib. Moderate sized right sided pleural effusions on CT. Patient reports a recent thoracentesis at [facility] in [place]. Procalcitonin negative. - Continue his usual Ipratropium every 4 hours while awake, levalbuterol every 2 hours as needed for shortness of breath #. Diarrhea, not present on admission. Resolved. #. Chronic kidney disease stage IV, POA and stable -Appears to be patient's baseline. -Continue to monitor #. Enterocutaneous fistula, chronic. - Continue ostomy care #. Carboplatinum resistant Klebsiella colonization around stoma, POA and active. The patient remains in double isolation. CODE STATUS: Full code We will have level care discussions with the patient's DPOAH (friend Darwin whose name is on the white board with phone number). Will begin looking for [facility] facilities that may be willing to accept him for ongoing care. VTE Prophylaxis: Theraputic Anticoag with Warfarin VTE Mechanical Devices: Intermittant Pneumatic CD Resuscitation Status: CPR: Attempt Resuscitation Time spent 30 minutes Attending Statement Patient has been seen and examined by myself with medical cost consultant and agree with above history, physical, assessment and plan. BRANDON SANCHEZ DO Oct 02, 2016 07:54 Sanaz Zimmer MD Oct 02, 2016 16:38
[2016-10-02 13:28] VITALS: BP 141/89; PULSE 92; RESP 20; O2SAT 93
--- NOTE | 2016-10-02 14:53 | NUR ---
Social Work: [facility] SN[facility] Update - [facility] T/C from Elina at [facility] ([phone]) who confirmed pt has 72 MCR days left with coverage at 80%. Pt does not have financial means to cover co-pay at this time and would need to be admitted using MD insurance and authorized by the MD. WILIAM confirmed Elina will hold referral and WILIAM will work with [facility] to authorize pt's stay on Monday. Elina agreeable. Elina stated Maggie will be the apartment coordinator available tomorrow and she will update Maggie on referral status. NATALIE Chau Addendum: 10/02/16 at 1455 by EDWIN COMBS SS WILIAM updated DANIAL Granados on referral status. Darwin agreeable and will await to hear back from WILIAM once placement authorized by MD.
[2016-10-02 17:44] VITALS: BP 132/94; PULSE 105; RESP 18; O2SAT 97
--- NOTE | 2016-10-02 18:38 | NUR ---
Lethargy Pt was extremely drowsy/lethargic for entirety of shift. Did not eat any meals. Would not wake up for anything.No c/o pain or discomfort. No yelling out. Sleep appeared restless and twitchy. He did however take his AM pills. NS running @ 75cc/hour. Incontinent of urine X2. No BM this shift.
[2016-10-03 03:11] VITALS: BP 132/85; PULSE 70; RESP 18; O2SAT 94
[2016-10-03 03:41] LABS: BASOPHILS % (AUTO) 0.1 % (0-3); EOSINOPHILS % (AUTO) 0.4 % (0-5); MONOCYTES % (AUTO) 4.1 % (4-12); Mean Corpuscular Hemoglobin 30.6 pg (27.0-35.0); Mean Corpuscular Volume 97.6 fL (81-100); NEUTROPHILS % (AUTO) 89.2 % (40-74); Platelet Count 478 bil/L (150-400)
[2016-10-03 04:04] LABS: INR 1.31 ratio
[2016-10-03] MEDS: 0.9% Sodium Chloride 1,000 ML IV SCH ×2 (05:35→17:21)
--- NOTE | 2016-10-03 06:34 | NUR ---
MENTATION/REST Pt rested well throughout the night. Pt passive with care and more lethargic than previous nights. Pt c/o pain with repositioning, but denied pain meds. Pt bedrest, but able to help with turns.
[2016-10-03] MEDS: Diltiazem CD 180 mg ER24 Capsule PO SCH (09:18)
[2016-10-03] MEDS: Pantoprazole 20 mg ER24 Tablet PO SCH (09:18)
[2016-10-03 09:22] VITALS: BP 144/98; PULSE 129; RESP 18; O2SAT 96
--- NOTE | 2016-10-03 13:01 | PCM.PNMED ---
Subjective Date of Service Oct 03, 2016 Subjective Patient has no new complaints. He does say he is agreeable to work with physical therapy today. Exam Vital Signs Vital Sign - Last Date Time Temp Pulse Resp B/P Pulse Ox O2 Delivery O2 Flow Rate FiO2 10/03/16 09:26 Supplement Oxygen 10/03/16 09:22 36.6 129 18 144/98 96 2.00 Intake and Output 10/02/16 10/02/16 10/03/16 Cumulative From/Thru 15:00 23:00 07:00 08/31/16 15:43 - 10/03/16 05:47 Intake Total 738 ml 800 ml 18306 ml Output Total 30 ml 40651 ml Balance 738 ml 770 ml 71045 ml Intake Oral 50 ml 0 ml 10197 ml IV Total 688 ml 800 ml 74716 ml Output Urine Total 32707 ml Stool Total 90 ml Urine/Stool Mix 1 ml Drainage Total 30 ml 80 ml # Voids 2 1 56 # Bowel Movements 1 49 Exam Constitutional: Elderly male in no acute distress Head: Normocephalic atraumatic Chest: Decreased breath sounds at bases Cor: Irregular regular rate and rhythm S1-S2 without murmur Abdomen: Soft nontender ostomy in place with light brown stool looser in consistency present Extremities: No pedal edema Skin: No rashes Psych: Flat affect Lab and Diagnostics Laboratory Tests 72 Hours Test 10/03/16 03:35 White Blood Count 9.7th/mm3 (3.8-10.1) Red Blood Count 3.27mil/mm3 (4.40-5.80) Hemoglobin 10.0g/dL (13.8-17.2) Hematocrit 31.9% (41.0-50.0) Mean Corpuscular Volume 97.6fL (81-100) Mean Corpuscular Hemoglobin 30.6pg (27.0-35.0) Mean Corpuscular Hemoglobin Concent 31.3% (32.0-37.0) Red Cell Distribution Width 15.1% (12.3-15.4) Platelet Count 478bil/L (150-400) Neutrophils (%) (Auto) 89.2% (40-74) Lymphocytes (%) (Auto) 5.8% (14-46) Monocytes (%) (Auto) 4.1% (4-12) Eosinophils (%) (Auto) 0.4% (0-5) Basophils (%) (Auto) 0.1% (0-3) Prothrombin Time 14.1sec (8.1-12.5) Prothromb Time International Ratio 1.31ratio Sodium Level 142mEq/L (134-144) Potassium Level 3.5mEq/L (3.5-5.2) Chloride Level 108mEq/L (97-108) Carbon Dioxide Level 21mmol/L (18-29) Blood Urea Nitrogen 19mg/dL (8-27) Creatinine 1.36mg/dL (0.76-1.27) Estimat Glomerular Filtration Rate 54mL/min (>59) Glucose Level 90mg/dL (60-99) Calcium Level 8.3mg/dL (8.5-10.1) Total Bilirubin 0.3mg/dL (0.0-1.2) Aspartate Amino Transf (AST/SGOT) 21U/L (0-50) Alanine Aminotransferase (ALT/SGPT) 10U/L (0-44) Alkaline Phosphatase 104U/L (25-160) Total Protein 6.0g/dL (6.4-8.4) Albumin 2.9g/dL (3.4-5.0) Result Diagram: 10/03/16 0335 10/03/16 033 X-Rays, CTs and MRIs CT CHEST WITHOUT CONTRAST IMPRESSION: Small to moderate bilateral pleural effusions with adjacent atelectasis. Additional patchy consolidation in the left lung base possibly pneumonia or aspiration. Please correlate clinically. Mild cardiomegaly. Circumferential lower chest wall edema, possibly third spacing/anasarca. Please correlate clinically. Dictated by: Rizwan Orta M.D. on 08/31/2016 at 18:13 X-RAY CHEST ONE VIEW, PORTABLE IMPRESSION: The bibasilar pneumonia, left greater than right, possible mild or early pneumonia right upper lobe. 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 Dictated by: William Baker M.D. on 08/31/2016 at 16:23 PROCEDURE: X-RAY CHEST, TWO VIEWS ([id number]) IMPRESSION: Retrocardiac left lower lobe pneumonia, while mild right upper lobe scarring. Dictated by: William Baker M.D. on 09/10/2016 at 17:23 Approved by: William Baker M.D. on 09/10/2016 at 17:23 PROCEDURE: CT BRAIN WITHOUT CONTRAST ([id number]) IMPRESSION: No CT evidence of acute intracranial pathology. Dictated by: Antwon Miller M.D. on 09/17/2016 at 13:33 PROCEDURE: X-RAY LEFT SHOULDER, MINIMUM TWO VIEWS ([id number]) IMPRESSION: 1. Mildly impacted acute fracture of the left humeral neck. 2. Nonacute nonunited lateral left clavicle fracture. 3. Severe left glenohumeral joint degeneration. Dictated by: Enoch Zhu M.D. on 09/18/2016 at 18:25 PROCEDURE: X-RAY LEFT ELBOW, TWO VIEWS ([id number]) IMPRESSION: Mildly displaced comminuted intra-articular fracture of the olecranon. Dictated by: Enoch Zhu M.D. on 09/18/2016 at 18:27 X-RAY CHEST ONE VIEW, PORTABLE IMPRESSION: 1. Persistent retrocardiac airspace opacity and interval increase in mid right lung and basilar air space opacity suspicious for aspiration or pneumonia. Continued radiographic surveillance to resolution is recommended Approved by: Mitra Marshall M.D. on 09/26/2016 Cardiac Echo Impressions Interpretation Summary Left ventricular systolic function is normal without focal wall motion abnormalities. The ejection fraction is estimated to be 60-65%. LVEF has not changed since priro study. Left ventricular wall thickness is mild-moderately increased. The right ventricle is at the upper limits of normal in size. The right ventricular systolic function is normal. Right ventricular systolic pressure is estimated to be 20 mmHg plus the clinically estimated CVP which cannot be estimated on this exam. The left atrium is severely dilated. The right atrium is severely dilated. There is mild mitral regurgitation. There is no other significant valvular heart disease. The aortic root is mildly dilated. The ascending aorta is mildly enlarged. The aortic arch is mildly enlarged. E/E' med: 15.1 Assessment & Plan #. Severe metabolic encephalopathy, relatively new and worsening. His mental status is still oscillating. He is very somnolent today. We will continue to follow to see if he improves or not. There is really no reversible cause of his encephalopathy that is identifiable at this time. Patient's mental status has been ongoing waxing and waning and hence he is not capable to be sent home and will need placement. Given his current altered mental status I do not think he has the capacity to make a decision for placement. The other issue is with his left humeral and olecranon fracture he will not be able to take care of his ostomy and hence needs placement if only from that perspective. Given his current mental status he will need placement to be in a safe environment. #. Left humeral and olecranon fracture, acute and active. Orthopedics is electing to not operate but rather to place a cast at this time. This seems very reasonable. The patient has a left elbow fracture and the left humeral head fracture. The patient cannot be placed in a sling after which will help with him humerus fracture pain as well as mitigate his impulsive movements. #. Acute kidney injury. Not present on admission and improving. Continue IV fluids, creatinine trending down slightly, continue to monitor with a.m. labs #. Atrial fibrillation which is rate controlled, POA and active. The patient will require resumption of blood thinners. Given proximity to surgery and his therapeutic INR just up until 2 days ago we will possibly hold until postoperative phase and then resume anticoagulation. Fortunately patient continues to be a severe fall risk and this is a relative contraindication to anticoagulation. INR 2.88 09/27/2016. The patient has been on Coumadin which was held recently. The only role problem with visit the patient really is a very high fall risk and probably should not be anticoagulated but rather just converted to aspirin when his pro time drifts down a bit further. We will continue to monitor #. Acute on chronic anxiety, History of PTSD and depression. Active and stable. Patient feels significantly anxious and claustrophobic. Processes limited trust with care providers at [facility]. Will leave the door open. We do not have accurate medication records and he claims his [facility] doctors give him twice daily lorazepam. He seems intermittently somewhat sedated on this regimen We will stop lorazepam as patient appears to be encephalopathic. 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 - Continue venlafaxine - He was given Seroquel for general agitation and anxiety in hopes of making him more comfortable. We will continue for now. #. Acute exacerbation of chronic diastolic congestive heart failure, present on admission, Resolved. At time of admission Patient has noted orthopnea, exertional dyspnea and lower extremity edema over the last week. BNP is also significantly elevated at 25, 000. Clinical impression was acute diastolic CHF due to atrial fibrillation with RVR. He subsequently has developed poor by mouth fluid intake and rising serum creatinine His IV fluids are currently at 75 ml an hour as he is eating very little. No evidence of decompensation. #. Falling episodes, acute on chronic. Stable. No recent falls in last 2 days. Several episodes during this inpatient hospitalization. Most recently with trauma and fracture of left arm. He is left-handed. - I have advised patient he must consider SNF placement due to his inability to manage at home even with significant assistance. Dr Mckenna did have a long conversation with the DPOA and have really discussed the fact that he not be able to discharge home safely and will require nursing home facility care. -Currently awaiting placement #. Muscular deconditioning, not present on admission and active and worsening. Patient does not seem able to safely ambulate short distances. He is anticoagulated. Fall on 09/16/16 did not result in brain bleeding. He refuses to consider discharge to SNF - Continue physical therapy after patient has been okayed by orthopedics - Plan discharge to SNF after testing of elbow fracture. #. Recent history of pulmonary embolism, present on admission, active. We do not have records of this diagnosis. Patient's INR was subtherapeutic on admission. - Warfarin management per pharmacy. This is therapeutic, no change in current therapy. - Currently had been holding warfarin in advance of surgery, this is now canceled. Medically anticoagulation is indicated, however the patient is such a high fall risk that the risks of using this are very high. We will continue to consider the best course of action. #. Troponin elevation, present on admission. Resolved. Troponin level 0.042- 0.066 with no clear temporal pattern to suggest coronary ischemia, even with heart rate greater than 160. - Troponin elevation likely secondary to demand ischemia from rapid rate. No further workup. #. ESBL proteus UTI, present on admission. Resolved. - No clinical symptoms aside from generalized weakness. He has history of relatively asymptomatic infections in the past. - Ertapenem initiated on 09/02/16, course completed on 09/15/16. Now discontinued - Infectious disease consult by Dr. Summers. There is one additional culture revealing ertapenem resistant species. Infectious disease is aware. #. Acute on chronic respiratory failure with hypercarbia and hypoxia, present on admission, Resolved. At time of admission, likely secondary to diastolic CHF from rapid A. fib. Moderate sized right sided pleural effusions on CT. Patient reports a recent thoracentesis at [facility] in [place]. Procalcitonin negative. - Continue his usual Ipratropium every 4 hours while awake, levalbuterol every 2 hours as needed for shortness of breath #. Diarrhea, not present on admission. Resolved. #. Chronic kidney disease stage IV, POA and stable -Appears to be patient's baseline. -Continue to monitor #. Enterocutaneous fistula, chronic. - Continue ostomy care #. Carboplatinum resistant Klebsiella colonization around stoma, POA and active. The patient remains in double isolation. CODE STATUS: Full code We will have level care discussions with the patient's DPOAH (friend Darwin whose name is on the white board with phone number). Will begin looking for nursing home facilities that may be willing to accept him for ongoing care. VTE Prophylaxis: Theraputic Anticoag with Warfarin VTE Mechanical Devices: Intermittant Pneumatic CD Resuscitation Status: CPR: Attempt Resuscitation Time spent 20 minutes Sanaz Zimmer MD Oct 03, 2016 13:01
--- NOTE | 2016-10-03 14:35 | NUR ---
CARE HOME TRANSFER : Spoke with Maggie at [facility] and they are not able to meet that patient's needs at this time. They only have two private rooms in their whole facility. With any isolation precautions they would need to provide a private room for this patient. Maggie let me know that they may have a private room open in a week or so. She also let me know if patient was open to hospice [facility] holds two separate contracts and would cover hospice and room and Board. Called and spoke with Merrill Maria she is checking on their bed status and i faxed her the referral packet on this patient. Updated REGULATORY AUDITOR Addendum: 10/03/16 at 1602 by COLLEEN WEEMS CM Also gave access to [facility], Gracy and Vera. Looking to see if patient is clinically appropriate for a local facility where then LTC planning can continue to happen. Updated REGULATORY AUDITOR
--- NOTE | 2016-10-03 15:41 | NUR ---
More alert today Pt was mostly back to baseline today. A&O X3, answered questions appropriately. Still using 2L NC. Drank fluids, ate a meal, had an incontinent BM. Ostomy produced around 20cc of brown output. Took oxy X2 for left leg pain. Refused to participate in any physical therapy. L arm remains in a soft cast, wrapped in koban. NS running at 75/hr.
[2016-10-03 17:09] VITALS: BP 149/74; PULSE 108; RESP 20; O2SAT 92
--- NOTE | 2016-10-03 17:34 | NUR ---
Social Work: Continued Discharge Planning/Multidisciplinary Rounds D: Pt discussed in morning rounds; placement for this patient continues. Per CER[employer]IC [employer]ODUCTS SALES ENGINEER over the weekend, [facility] in [place] has accepted the patient. [employer] SALES ENGINEER has requested the Formation Testing Operator call the facility to confirm that they are aware of the strict contact precautions for CRE. Formation Testing Operator states to [employer] SAL[employer] ENGINEER that she has spoken with the weekday admissions worker and that they were not aware of the precautions and that they only have two rooms in their facility that can accommodate a single person. At this time, they are not able to manage the patient's care and cannot accept. This may change if the patient's precaution status is changed. C[employer] SALES ENGINEER has requested that attending provider review the patient's precaution status with the Infectious Disease provider to determine the patient's oil heaterman precautionary needs. She confirms that they will do this. [employer] SALES ENGINEER has requested the Formation Testing Operator place referral to [facility] and [facility] (the only other local [facility] contracted facility) to determine if they are able to accommodate the patient with his current care needs. C[employer] SALES ENGINEER has also requested that local facilities excluding [facility] ([facility] preference) be referred for possible Medicare placement. Clarification from social work notes from 10/02: the patient does have financial means to pay a Medicare Co-pay, per his DPOA, but it would be his preference to place the patient in a VA contracted facility if able. Per Formation Testing Operator, Denisse Coronado at [facility] states that they could manage the patient's current care and his level of precautions. They have not yet formally accepted as they are curious about the patient's halfway care needs/goals. C[employer] SALES ENGINEER spoke with the [facility] to discuss the process of going to a Medicare contracted facility. He confirms that at this point, he is agreeable to using the patient's medicare and paying the co-pay amount and working with the social workers at [facility] to determine a halfway plan/VA facility who could take the patient oil heaterman. [facility] is working on liquidating the patient's assets (boats, cars, etc) to get more swenson that can be used to pay for future care. C[employer] SALES ENGINEER will update [facility] of this tomorrow. DANIAL voiced concerns to [employer] SALES ENGINEER about interactions several days prior. [employer] SALES ENGINEER provided him with the patient complaint information and patient advocate phone number and encouraged him to report. A: Pt who will require halfway placement. P: [facility]; [employer] SALES ENGINEER to continue to seek placement for the patient. Merrill Rosario [facility], Gracy Traore, [facility] reviewing. Serene Mckinney MSW
[2016-10-03 20:32] VITALS: BP 155/101; PULSE 125; RESP 18; O2SAT 92
[2016-10-04 03:06] VITALS: BP 132/81; PULSE 91; RESP 18; O2SAT 93
[2016-10-04] MEDS: 0.9% Sodium Chloride 1,000 ML IV SCH ×2 (05:55→19:39)
[2016-10-04] MEDS: Diltiazem CD 180 mg ER24 Capsule PO SCH (09:36)
[2016-10-04] MEDS: Pantoprazole 20 mg ER24 Tablet PO SCH (09:36)
[2016-10-04 09:42] VITALS: BP 142/87; PULSE 132; RESP 18; O2SAT 95
--- NOTE | 2016-10-04 11:31 | NUR ---
NUTRITION FOLLOW-UP: ASSESS: 76 YO male admitted with shortness of breath. Pt s/p fall with L humeral and olecranon fracture. PO intake remains variable due to mental status from 0-50%. Pt awaiting placement. PMHx: PTSD, anxiety/depression after [place] combat, bilateral cataracts, gastric bypass surgery, BPH, pyelonephritis, stage IV renal disease, RSV, enterocutaneous fistula requiring TPN. DIET: General, PB and crackers at 10, yogurt at 2, 2000 ML fluid restriction. PO intake 0-50%. LABS: Reviewed. (10/03): Cr 1.36, Ca 8.3, Alb 2.9 MEDICATIONS: Reviewed. Colace. GI: 2 BM 10/03. SKIN: No issues reported. ANTHROPOMETRICS: Current Wt: 87.7 kg (10/04). BMI 37.8 kg/m2, Admit weight: 78.1 kg . ESTIMATED NEEDS Calories: 4380-5055 kcal/day (22-25 kcal/kg) Protein: 75-95 g/day (1.0-1.2 g/kg) NUTRITION DIAGNOSIS: 1) Inconsistent PO intake related to inability to consume sufficient energy, as evidenced by 0-100% trays, likely due to significant psychological issues.--PERSISTS. INTERVENTION: 1) Continue current diet with supplements of PB w/ crackers @ 10 am and yogurt @ 2 pm. MONITOR/EVALUATE: PO intake, weight, labs, GI status, POC, nutrition status. Follow per moderate nutrition risk guidelines.
--- NOTE | 2016-10-04 13:50 | NUR ---
HALF-WAY TRANSFER FOLLOW UP : Called and spoke with Colleen at [facility] and she is checking to see if outstanding balance was paid and she is working with her city designer to review most updated clinicals and make a decision about being able to accept patient. Called and spoke with Sloane Treat admissions clinician at [facility] and she is working with her nursing agency manager to make sure they can still meet patient needs. When they initially did an onsite with patient there was concerning regarding funding and payment status. Gave Sloane updated information about DPOA and that he is actively involved. Called and left a message for Hugo at [facility], let him know I was following up with him on the referral I sent to his coworker yesterday. Called and left message for [facility] regarding referral sent yesterday afternoon and potential for acceptance. [facility] has confirmed they can accommodate the isolation precautions but their main concern is what the buttermilk drier operator plan would be as they do not hold a VA contract. Faxed referral to [facility] in [place], they have been taken off stop placement and now have available beds. Called and spoke with Breanne and she is expecting the fax.
--- NOTE | 2016-10-04 14:21 | NUR ---
Social Work: Continued Discharge Planning/Multidisciplinary Rounds D: Pt discussed in multidisciplinary rounds; pt remains non-decisional though medically stable for discharge pending appropriate placement. Per attending provider consultation with ID provider, the patient's precaution status is specific to each facilities' policy regarding infections and that it is entirely up to the facility to determine whether the patient requires a private room with precautions at their facility. PODIATRY DOCTOR and scheduling specialist discussed the current facilities that are reviewing along with the potential barriers to placement amongst each. While [facility] was not the DPOA's preference, they have been referred as they have historically expressed that they would be able to accommodate the patient and must be considered if the patient exhausts his other options. Engineer [employer]ated Equipment will be calling all referred facilities for an update and to inquire about admission status. Please see separate note from [employer] for more detailed information. A: Pt who will require placement for further care. P: [facility]; Case Management team is actively pursuing placement for this patient and will coordinate discharge plan with pt and DPOA once a facility is located. NATALIE Matias
--- NOTE | 2016-10-04 15:33 | PCM.PNMED ---
Subjective Date of Service Oct 04, 2016 Subjective No acute complaints today. Exam Vital Signs Vital Sign - Last Date Time Temp Pulse Resp B/P Pulse Ox O2 Delivery O2 Flow Rate FiO2 10/04/16 09:42 36.4 132 18 142/87 95 Nasal Cannula 2.00 Intake and Output 10/03/16 10/03/16 10/04/16 Cumulative From/Thru 15:00 23:00 07:00 08/31/16 15:43 - 10/04/16 04:58 Intake Total 2236 ml 83862 ml Output Total 82244 ml Balance 2236 ml 60855 ml Intake Oral 400 ml 71870 ml IV Total 1836 ml 35994 ml Output Urine Total 84935 ml Stool Total 90 ml Urine/Stool Mix 1 ml Drainage Total 80 ml # Voids 1 57 # Bowel Movements 1 50 Exam Exam Constitutional: Elderly male in no acute distress Head: Normocephalic atraumatic Chest: Decreased breath sounds at bases Cor: Irregular regular rate and rhythm S1-S2 without murmur Abdomen: Soft nontender ostomy in place with light brown stool looser in consistency present Extremities: No pedal edema Skin: No rashes Psych: Flat affect Lab and Diagnostics Laboratory Tests 72 Hours Test 10/03/16 03:35 White Blood Count 9.7th/mm3 (3.8-10.1) Red Blood Count 3.27mil/mm3 (4.40-5.80) Hemoglobin 10.0g/dL (13.8-17.2) Hematocrit 31.9% (41.0-50.0) Mean Corpuscular Volume 97.6fL (81-100) Mean Corpuscular Hemoglobin 30.6pg (27.0-35.0) Mean Corpuscular Hemoglobin Concent 31.3% (32.0-37.0) Red Cell Distribution Width 15.1% (12.3-15.4) Platelet Count 478bil/L (150-400) Neutrophils (%) (Auto) 89.2% (40-74) Lymphocytes (%) (Auto) 5.8% (14-46) Monocytes (%) (Auto) 4.1% (4-12) Eosinophils (%) (Auto) 0.4% (0-5) Basophils (%) (Auto) 0.1% (0-3) Prothrombin Time 14.1sec (8.1-12.5) Prothromb Time International Ratio 1.31ratio Sodium Level 142mEq/L (134-144) Potassium Level 3.5mEq/L (3.5-5.2) Chloride Level 108mEq/L (97-108) Carbon Dioxide Level 21mmol/L (18-29) Blood Urea Nitrogen 19mg/dL (8-27) Creatinine 1.36mg/dL (0.76-1.27) Estimat Glomerular Filtration Rate 54mL/min (>59) Glucose Level 90mg/dL (60-99) Calcium Level 8.3mg/dL (8.5-10.1) Total Bilirubin 0.3mg/dL (0.0-1.2) Aspartate Amino Transf (AST/SGOT) 21U/L (0-50) Alanine Aminotransferase (ALT/SGPT) 10U/L (0-44) Alkaline Phosphatase 104U/L (25-160) Total Protein 6.0g/dL (6.4-8.4) Albumin 2.9g/dL (3.4-5.0) Result Diagram: 10/03/16 0335 10/03/16 0335 X-Rays, CTs and MRIs CT CHEST WITHOUT CONTRAST IMPRESSION: Small to moderate bilateral pleural effusions with adjacent atelectasis. Additional patchy consolidation in the left lung base possibly pneumonia or aspiration. Please correlate clinically. Mild cardiomegaly. Circumferential lower chest wall edema, possibly third spacing/anasarca. Please correlate clinically. Dictated by: Rizwan Orta M.D. on 08/31/2016 at 18:13 X-RAY CHEST ONE VIEW, PORTABLE IMPRESSION: The bibasilar pneumonia, left greater than right, possible mild or early pneumonia right upper lobe. 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 Dictated by: William Baker M.D. on 08/31/2016 at 16:23 PROCEDURE: X-RAY CHEST, TWO VIEWS ([id number]) IMPRESSION: Retrocardiac left lower lobe pneumonia, while mild right upper lobe scarring. Dictated by: William Baker M.D. on 09/10/2016 at 17:23 Approved by: William Baker M.D. on 09/10/2016 at 17:23 PROCEDURE: CT BRAIN WITHOUT CONTRAST ([id number]) IMPRESSION: No CT evidence of acute intracranial pathology. Dictated by: Antwon Miller M.D. on 09/17/2016 at 13:33 PROCEDURE: X-RAY LEFT SHOULDER, MINIMUM TWO VIEWS ([id number]) IMPRESSION: 1. Mildly impacted acute fracture of the left humeral neck. 2. Nonacute nonunited lateral left clavicle fracture. 3. Severe left glenohumeral joint degeneration. Dictated by: Enoch Zhu M.D. on 09/18/2016 at 18:25 PROCEDURE: X-RAY LEFT ELBOW, TWO VIEWS ([id number]) IMPRESSION: Mildly displaced comminuted intra-articular fracture of the olecranon. Dictated by: Enoch Zhu M.D. on 09/18/2016 at 18:27 X-RAY CHEST ONE VIEW, PORTABLE IMPRESSION: 1. Persistent retrocardiac airspace opacity and interval increase in mid right lung and basilar air space opacity suspicious for aspiration or pneumonia. Continued radiographic surveillance to resolution is recommended Approved by: Mitra Marshall M.D. on 09/26/2016 Cardiac Echo Impressions Interpretation Summary Left ventricular systolic function is normal without focal wall motion abnormalities. The ejection fraction is estimated to be 60-65%. LVEF has not changed since priro study. Left ventricular wall thickness is mild-moderately increased. The right ventricle is at the upper limits of normal in size. The right ventricular systolic function is normal. Right ventricular systolic pressure is estimated to be 20 mmHg plus the clinically estimated CVP which cannot be estimated on this exam. The left atrium is severely dilated. The right atrium is severely dilated. There is mild mitral regurgitation. There is no other significant valvular heart disease. The aortic root is mildly dilated. The ascending aorta is mildly enlarged. The aortic arch is mildly enlarged. E/E' med: 15.1 Assessment & Plan #. Severe metabolic encephalopathy, relatively new and worsening. His mental status is still oscillating. He is very somnolent today. We will continue to follow to see if he improves or not. There is really no reversible cause of his encephalopathy that is identifiable at this time. Patient's mental status has been ongoing waxing and waning and hence he is not capable to be sent home and will need placement. Given his current altered mental status I do not think he has the capacity to make a decision for placement. The other issue is with his left humeral and olecranon fracture he will not be able to take care of his ostomy and hence needs placement if only from that perspective. Given his current mental status he will need placement to be in a safe environment. #. Left humeral and olecranon fracture, acute and active. Orthopedics is electing to not operate but rather to place a cast at this time. This seems very reasonable. The patient has a left elbow fracture and the left humeral head fracture. The patient cannot be placed in a sling after which will help with him humerus fracture pain as well as mitigate his impulsive movements. #. Acute kidney injury. Not present on admission and improving. Continue IV fluids, creatinine trending down slightly, continue to monitor with a.m. labs #. Atrial fibrillation which is rate controlled, POA and active. The patient will require resumption of blood thinners. Given proximity to surgery and his therapeutic INR just up until 2 days ago we will possibly hold until postoperative phase and then resume anticoagulation. Fortunately patient continues to be a severe fall risk and this is a relative contraindication to anticoagulation. INR 2.88 09/27/2016. The patient has been on Coumadin which was held recently. The only role problem with visit the patient really is a very high fall risk and probably should not be anticoagulated but rather just converted to aspirin when his pro time drifts down a bit further. We will continue to monitor #. Acute on chronic anxiety, History of PTSD and depression. Active and stable. Patient feels significantly anxious and claustrophobic. Processes limited trust with care providers at [facility]. Will leave the door open. We do not have accurate medication records and he claims his [facility] doctors give him twice daily lorazepam. He seems intermittently somewhat sedated on this regimen We will stop lorazepam as patient appears to be encephalopathic. 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 - Continue venlafaxine - He was given Seroquel for general agitation and anxiety in hopes of making him more comfortable. We will continue for now. #. Acute exacerbation of chronic diastolic congestive heart failure, present on admission, Resolved. At time of admission Patient has noted orthopnea, exertional dyspnea and lower extremity edema over the last week. BNP is also significantly elevated at 25, 000. Clinical impression was acute diastolic CHF due to atrial fibrillation with RVR. He subsequently has developed poor by mouth fluid intake and rising serum creatinine His IV fluids are currently at 75 ml an hour as he is eating very little. No evidence of decompensation. #. Falling episodes, acute on chronic. Stable. No recent falls in last 2 days. Several episodes during this inpatient hospitalization. Most recently with trauma and fracture of left arm. He is left-handed. - I have advised patient he must consider SNF placement due to his inability to manage at home even with significant assistance. Dr Mckenna did have a long conversation with the DPOA and have really discussed the fact that he not be able to discharge home safely and will require jail facility care. -Currently awaiting placement #. Muscular deconditioning, not present on admission and active and worsening. Patient does not seem able to safely ambulate short distances. He is anticoagulated. Fall on 09/16/16 did not result in brain bleeding. He refuses to consider discharge to SNF - Continue physical therapy after patient has been okayed by orthopedics - Plan discharge to SNF after testing of elbow fracture. #. Recent history of pulmonary embolism, present on admission, active. We do not have records of this diagnosis. Patient's INR was subtherapeutic on admission. - Warfarin management per pharmacy. This is therapeutic, no change in current therapy. - Currently had been holding warfarin in advance of surgery, this is now canceled. Medically anticoagulation is indicated, however the patient is such a high fall risk that the risks of using this are very high. We will continue to consider the best course of action. #. Troponin elevation, present on admission. Resolved. Troponin level 0.042- 0.066 with no clear temporal pattern to suggest coronary ischemia, even with heart rate greater than 160. - Troponin elevation likely secondary to demand ischemia from rapid rate. No further workup. #. ESBL proteus UTI, present on admission. Resolved. - No clinical symptoms aside from generalized weakness. He has history of relatively asymptomatic infections in the past. - Ertapenem initiated on 09/02/16, course completed on 09/15/16. Now discontinued - Infectious disease consult by Dr. Summers. There is one additional culture revealing ertapenem resistant species. Infectious disease is aware. #. Acute on chronic respiratory failure with hypercarbia and hypoxia, present on admission, Resolved. At time of admission, likely secondary to diastolic CHF from rapid A. fib. Moderate sized right sided pleural effusions on CT. Patient reports a recent thoracentesis at [facility] in [place]. Procalcitonin negative. - Continue his usual Ipratropium every 4 hours while awake, levalbuterol every 2 hours as needed for shortness of breath #. Diarrhea, not present on admission. Resolved. #. Chronic kidney disease stage IV, POA and stable -Appears to be patient's baseline. -Continue to monitor #. Enterocutaneous fistula, chronic. - Continue ostomy care #. Carbapenem resistant Klebsiella colonization around stoma, POA and active. The patient remains in double isolation. CODE STATUS: Full code We will have level care discussions with the patient's DPOAH (friend Darwin whose name is on the white board with phone number). Will begin looking for jail facilities that may be willing to accept him for ongoing care. VTE Prophylaxis: Theraputic Anticoag with Warfarin VTE Mechanical Devices: Intermittant Pneumatic CD Resuscitation Status: CPR: Attempt Resuscitation Time spent 20 minutes Sanaz Zimmer MD Oct 04, 2016 15:33
[2016-10-04 16:50] VITALS: BP 107/68; PULSE 98; RESP 18; O2SAT 91
--- NOTE | 2016-10-04 17:23 | NUR ---
Mentation/intake/plans for tomorrow Pt was quite alert today but not oriented. Not sure where he was or why but he was lively and conversational. Ate about half of his meals with assistance. No issues with swallowing. Can only eat soft foods because he has no teeth. Incontinent of urine. Took pain pills twice for L leg pain. Did not ask for anything for anxiety. According to SANTIAGO, retort engineer will be in tomorrow to discuss issues with him. Patient is aware and wants to make sure he has his pocket talker on so he can hear them. Will pass this on to night RN.
[2016-10-04 21:11] VITALS: BP 118/75; PULSE 95; RESP 22; O2SAT 91
[2016-10-05 04:31] VITALS: PULSE 95; RESP 20; O2SAT 92
[2016-10-05 05:03] VITALS: BP 118/82; PULSE 125; RESP 20; O2SAT 94
--- NOTE | 2016-10-05 06:45 | NUR ---
Fluids/O2/Pain This morning pt was noted to have increased crackles, lung sounds moist, pt was encouraged to cough but not able to follow that direction well. Sats mid 90s on 2.5L NC as sats were about 90 on 2L. Pt also had some increased swelling noted this morning. MD was notified and stopped IV fluids for now. Pt appeared to sleep well overnight after HS meds and had no complaints. However when repositioned pt was noted to have increased pain and appears to have more pain in left leg as pt really jumps when this leg is moved even a little. MD was made aware. Addendum: 10/05/16 at 0721 by ROBERTO ARTHUR RN Pt appears comfortable at rest.
--- NOTE | 2016-10-05 08:55 | NUR ---
SHELTER TRANSFER FOLLOW UP: Called and left message for Hugo at [facility] regarding the [place] contract they hold and if they could accept patient with his 72 MCR days left. Called and left message for Vera, they were also reconsidering patient since financial options have changed. Updated OBSTETRICS GYNECOLOGY MD Addendum: 10/05/16 at 1047 by COLLEEN WEEMS CM [facility] can accept patient with MD Sanjuanita Desir to follow, faxed orders to [facility] and placed copy in chart. Also faxed DPOA PPWK to [facility]. Updated OBSTETRICS GYNECOLOGY MD
[2016-10-05 09:51] VITALS: BP 113/58; PULSE 116; RESP 16; O2SAT 93
--- NOTE | 2016-10-05 10:01 | PCM.DIMED ---
Discharge Instructions Date of Service Oct 05, 2016 Dates of Hospitalization Aug 31, 2016 at 19:38 Discharge Diagnosis Discharge Diagnosis #. Severe metabolic encephalopathy, stable. #. Left humeral and olecranon fracture, stable. #. Acute kidney injury. Improved. #. Atrial fibrillation , stable. #. Acute on chronic anxiety, History of PTSD and depression. stable. #. Acute exacerbation of chronic diastolic congestive heart failure, Resolved. #. Falling episodes, and gait instability. #. Recent history of pulmonary embolism, will resume coumdain and watch his safety closely at SNF. #. Troponin elevation, resolved. #. ESBL proteus UTI, resolved. #. Acute on chronic respiratory failure with hypercarbia and hypoxia, Resolved. #. Diarrhea, resolved. #. Chronic kidney disease stage IV, stable -Appears to be patient's baseline. -Continue to monitor #. Enterocutaneous fistula, chronic. Ostomy. #. Carbapenem resistant Klebsiella colonization around stoma, active. Diet Discharge Diet: Heart Healthy Activity Discharge Activity: Other (assist with PT ) Patient Instructions Patient Instructions Discharged to [facility] Mid-level Provider (F9): Elina Fung PA-C Follow-up with Mid-level in: 4 weeks Joel Mckenna MD Oct 05, 2016 10:01
[2016-10-05] MEDS ORDERED: OXYC-474 PO (10:02)
[2016-10-05] MEDS ORDERED: QUET25TA73 PO (10:02)
[2016-10-05] MEDS: 0.9% Sodium Chloride 1,000 ML IV SCH (10:13)
[2016-10-05] MEDS: Diltiazem CD 180 mg ER24 Capsule PO SCH (10:39)
[2016-10-05] MEDS: Pantoprazole 20 mg ER24 Tablet PO SCH (10:39)
--- NOTE | 2016-10-05 10:53 | NUR ---
Social Work: Discharge/Multidisciplinary Rounds D: Pt discussed in multidisciplinary rounds; the patient continues to be medically stable for discharge. Per Seam Steamer, [facility] the patient for admission with Dr. Sanjuanita Desir. They are requesting the DPOA paperwork and contact information for DPJOANNA to confirm that he understands pt's financial responsibility until a VA contract is authorized. Discharge paperwork, prescriptions and instructions faxed to Hugo at [facility]. t/c to DANIAL, Darwin to notify of the unfolding discharge plan. He confirms that he spoke with Hugo at [facility] and is able to pay for the share of cost/co-pay the patient may have. He would like to be here when the patient is transferred. He will be available at 1600 today. He understands that the patient will require BLS transport for safety reasons and understands the possible out of pocket expense if the patient is denied by Medicare for transport. NATALIE provided him with the contact information for the pt's [facility] [place] Operator, Mony Siddiqi ([phone]) who had stated in the past that she could help to expedite a VA Authorization. LUNCH COUNTER MANAGER has left her a message to notify of pt's discharge to [facility]. PASSR completed- pt requires a level II referral. LUNCH COUNTER MANAGER spoke with PASSR Head Loader, Luis Fernando ([phone]), who is covering for regional PASSR Coordinator, Mariana Kessler. She states that the patient is ok to discharge as long as the facility is willing to accept him. She will alert Mariana and informed LUNCH COUNTER MANAGER to faxed the PASSR to Mariana ([phone]). LUNCH COUNTER MANAGER has faxed PASSR and received confirmation fax. LUNCH COUNTER MANAGER met with the patient at bedside with the use of his hearing devise. LUNCH COUNTER MANAGER informed the patient that he is being discharged today to [facility]. Pt is amenable to this discharge and inquired about cost. LUNCH COUNTER MANAGER informed him that Darwin will be working to get his VA to pay for the admission. A: Pt who is ready for discharge P: Pt to discharge to [facility] today with Dr. Desir to follow. BLS transport arranged for 4:00pm when DPOA can be present to assist with patient. NATALIE Matias
--- NOTE | 2016-10-05 11:02 | NUR ---
HALFWAY TRANSFER : Spoke with Hugo and Merrill Maria and he did receive fax with all orders and prescriptions. He will also need the PASRR and Discharge Summary when ready. Updated Hugo on transport time and the wish from Darwin to be with him when he transfers. Scheduled BLS transport via [facility] for 1600. Updated RN and SPORTS MANAGER
--- NOTE | 2016-10-05 11:38 | PCM.DC.MED ---
Discharge Summary Date of Service Oct 05, 2016 Dates of Hospitalization Date of Hospital Admission Aug 31, 2016 at 19:38 Date of Discharge: Oct 05, 2016 Providers: Admitting Physician: Damien Vila MD [facility] Attending Physician: Joel Hendrickson MD Diagnosis at Time of Discharge Diagnosis at Time of Discharge #. Severe metabolic encephalopathy, stable. #. Left humeral and olecranon fracture, stable. #. Acute kidney injury. Improved. #. Atrial fibrillation , stable. #. Acute on chronic anxiety, History of PTSD and depression. stable. #. Acute exacerbation of chronic diastolic congestive heart failure, Resolved. #. Falling episodes, and gait instability. #. Recent history of pulmonary embolism, will resume coumdain and watch his safety closely at SNF. #. Troponin elevation, resolved. #. ESBL proteus UTI, resolved. #. Acute on chronic respiratory failure with hypercarbia and hypoxia, Resolved. #. Diarrhea, resolved. #. Chronic kidney disease stage IV, stable -Appears to be patient's baseline. -Continue to monitor #. Enterocutaneous fistula, chronic. Ostomy. #. Carbapenem resistant Klebsiella colonization around stoma, active. Consultations Orthopedics, infectious disease. Procedures XRay, CTs & MRIs CT CHEST WITHOUT CONTRAST IMPRESSION: Small to moderate bilateral pleural effusions with adjacent atelectasis. Additional patchy consolidation in the left lung base possibly pneumonia or aspiration. Please correlate clinically. Mild cardiomegaly. Circumferential lower chest wall edema, possibly third spacing/anasarca. Please correlate clinically. Dictated by: Rizwan Orta M.D. on 08/31/2016 at 18:13 X-RAY CHEST ONE VIEW, PORTABLE IMPRESSION: The bibasilar pneumonia, left greater than right, possible mild or early pneumonia right upper lobe. 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 Dictated by: William Baker M.D. on 08/31/2016 at 16:23 PROCEDURE: X-RAY CHEST, TWO VIEWS ([id number]) IMPRESSION: Retrocardiac left lower lobe pneumonia, while mild right upper lobe scarring. Dictated by: William Baker M.D. on 09/10/2016 at 17:23 Approved by: William Baker M.D. on 09/10/2016 at 17:23 PROCEDURE: CT BRAIN WITHOUT CONTRAST ([id number]) IMPRESSION: No CT evidence of acute intracranial pathology. Dictated by: Antwon Miller M.D. on 09/17/2016 at 13:33 PROCEDURE: X-RAY LEFT SHOULDER, MINIMUM TWO VIEWS ([id number]) IMPRESSION: 1. Mildly impacted acute fracture of the left humeral neck. 2. Nonacute nonunited lateral left clavicle fracture. 3. Severe left glenohumeral joint degeneration. Dictated by: Enoch Zhu M.D. on 09/18/2016 at 18:25 PROCEDURE: X-RAY LEFT ELBOW, TWO VIEWS ([id number]) IMPRESSION: Mildly displaced comminuted intra-articular fracture of the olecranon. Dictated by: Enoch Zhu M.D. on 09/18/2016 at 18:27 X-RAY CHEST ONE VIEW, PORTABLE IMPRESSION: 1. Persistent retrocardiac airspace opacity and interval increase in mid right lung and basilar air space opacity suspicious for aspiration or pneumonia. Continued radiographic surveillance to resolution is recommended Approved by: Mitra Marshall M.D. on 09/26/2016 Cardiac Echo Impression Interpretation Summary Left ventricular systolic function is normal without focal wall motion abnormalities. The ejection fraction is estimated to be 60-65%. LVEF has not changed since priro study. Left ventricular wall thickness is mild-moderately increased. The right ventricle is at the upper limits of normal in size. The right ventricular systolic function is normal. Right ventricular systolic pressure is estimated to be 20 mmHg plus the clinically estimated CVP which cannot be estimated on this exam. The left atrium is severely dilated. The right atrium is severely dilated. There is mild mitral regurgitation. There is no other significant valvular heart disease. The aortic root is mildly dilated. The ascending aorta is mildly enlarged. The aortic arch is mildly enlarged. E/E' med: 15.1 Brief History Donovan Benítez is a 76 -year-old man with past medical history significant for COPD, diastolic congestive heart failure, pacemaker placement, atrial fibrillation, PTSD requiring admission in a psychiatric facility, with multiple recurrent admissions for pneumonia who was recently admitted to an outside facility for pulmonary embolism now on warfarin who presented to the [facility] emergency department today via EMS due to shortness of breath that started 4 days ago. Patient noted dyspnea on exertion, chest pain, palpitations, chills, subjective fever, lightheadedness and swelling in his legs that has been worsening for about last week and a half. Patient noticed that he became her breath while walking a few steps which is new for him. Patient also noticed orthopnea. Patient notes that his chest pain but states that this chest pain is similar to his anxiety events. Medics noted that the patient was found in fibrillation with rapid ventricular response. Patient denies any nausea or vomiting. He does state that he feels very anxious and claustrophobic. In the emergency department his vital signs were notable for a pulse of 162. Patient was afebrile with a temperature of 36.1. Patient underwent evaluation with chest x-ray which noted some possible pneumonia and then a chest CT which noted likely atelectasis and bilateral pleural effusions more consistent with fluid overload rather than pneumonia. Patient's EKG was notable for atrial fibrillation with left ventricular hypertrophy and intraventricular block. Patient's INR was found to be subtherapeutic in the setting of a elevated d- dimer and a past history of pulmonary and was not patient was initiated on a heparin drip until his warfarin could be therapeutic. Patient was also started on given IV doses of Cardizem with good response. She was also given vancomycin , Levaquin, Zosyn 4 possible healthcare associated pneumonia. Patient was also given 125 mg of Solu-Medrol for possible COPD exacerbation. Hospital Course #. Severe metabolic encephalopathy, relatively new and worsening. The patient developed a severe septic encephalopathy. This would wax and wane throughout the hospitalization but generally worsened. The patient became really unable to participate in rehabilitative efforts or medical decision making. #. Left humeral and olecranon fracture, acute and active. Hospitalization was complicated by a fall. The patient had a lot of impulsivity. This resulted in the left humeral head and olecranon fracture. Initially operative fixation was considered but given his progressive encephalopathy he was ultimately splinted. Patient was relatively comfortable with this approach. #. Acute kidney injury. Improved. The patient was fluid resuscitated no acute kidney injury did improve. #. Atrial fibrillation which is rate controlled, POA and active. The patient will require resumption of blood thinners. Given proximity to surgery and his therapeutic INR just up until 2 days ago we will possibly hold until postoperative phase and then resume anticoagulation. Fortunately patient continues to be a severe fall risk and this is a relative contraindication to anticoagulation. INR 2.88 09/27/2016. Since anticoagulation was held for periods of time during hospitalization relating to preparation for possible operative fixation of fracture as well as concerns for his general safety with his impulsivity and ongoing fall risk. However one senior care facility was obtained it was felt that he could be resumed on low-dose Coumadin with ongoing assessment of his safety and risk for falls. He continues to remain tenuous in terms of being a candidate for anticoagulation but with his comorbid conditions we will resume and follow closely. #. Acute on chronic anxiety, History of PTSD and depression. Active and stable. Patient feels significantly anxious and claustrophobic. Processes limited trust with care providers at [facility]. Will leave the door open. We do not have accurate medication records and he claims [facility] give him twice daily lorazepam. He seems intermittently somewhat sedated on this regimen We will stop lorazepam as patient appears to be encephalopathic. 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 - Continue venlafaxine - The patient was started on low-dose Seroquel for for sleep and this did seem to provide some degree of comfort. #. Acute exacerbation of chronic diastolic congestive heart failure, present on admission, Resolved. At time of admission Patient has noted orthopnea, exertional dyspnea and lower extremity edema over the last week. BNP is also significantly elevated at 25, 000. Clinical impression was acute diastolic CHF due to atrial fibrillation with RVR. He subsequently has developed poor by mouth fluid intake and rising serum creatinine The patient improved with medical treatment for acute diastolic heart failure remained euvolemic throughout the rest of his hospitalization. #. Falling episodes, acute on chronic. Stable. No recent falls in last 2 days. Several episodes during this inpatient hospitalization. Most recently with trauma and fracture of left arm. He is left-handed. - I have advised patient he must consider SNF placement due to his inability to manage at home even with significant assistance. #. Muscular deconditioning, worsening. Patient does not seem able to safely ambulate short distances. He is anticoagulated. Fall on 09/16/16 did not result in brain bleeding. He refuses to consider discharge to SNF - Continue physical therapy after patient has been okayed by orthopedics The patient has had a long slow decompensation and I really believe he is unlikely to recover in any meaningful way. I did share his very poor prognosis on the day of discharge again with his partner treated for healthcare, Darwin. I repeated I do not really believe that Mr. Benítez has any likely possibility of improvement from his medical conditions. I continue to have acute for comfort. The patient does remain full resuscitation time of discharge but I continue to urge Darwin to reconsider this as I think that resuscitation efforts would be futile. #. Recent history of pulmonary embolism, active The patient be resumed on Coumadin however he remains a very poor candidate with regards to safety and fall risk. This will need to continue to be reassessed on a weekly basis. #. Troponin elevation, resolved. - Troponin elevation likely secondary to demand ischemia from rapid rate. No further workup. #. ESBL proteus UTI, resolved. - No clinical symptoms aside from generalized weakness. He has history of relatively asymptomatic infections in the past. - Ertapenem initiated on 09/02/16, course completed on 09/15/16. Now discontinued - Infectious disease consult by Dr. Summers. There is one additional culture revealing ertapenem resistant species. Infectious disease is aware. #. Acute on chronic respiratory failure with hypercarbia and hypoxia, present on admission, Resolved. At time of admission, likely secondary to diastolic CHF from rapid A. fib. Moderate sized right sided pleural effusions on CT. Patient reports a recent thoracentesis at [facility] in [place]. Procalcitonin negative. #. Diarrhea, not present on admission. Resolved. CDToxin negative. #. Chronic kidney disease stage IV, POA and stable -Appears to be patient's baseline. -Continue to monitor #. Enterocutaneous fistula, chronic. With ostomy. - Continue ostomy care #. Carbapenem resistant Klebsiella colonization around stoma, POA and active. The patient remains in double isolation. CODE STATUS: Full code DPCONCETTA is his friend Darwin. Paperwork accompanies. Exam Vital Signs (Last) Date Time Temp Pulse Resp B/P Pulse Ox O2 Delivery O2 Flow Rate FiO2 10/05/16 10:36 36.7 10/05/16 10:23 Supplement Oxygen 10/05/16 09:51 116 16 113/58 93 3.00 Exam Patient was seen and examined on the day of discharge Test 08/31/16 16:29 08/31/16 19:10 09/01/16 04:20 09/01/16 10:30 Magnesium Level 1.9mg/dL (1.6-2.6) Urine Color Yellow (YELLOW) Urine Appearance Hazy (CLEAR,HAZY) Urine pH 6.5 (5.0-8.0) Urine Specific [place] 1.020 (1.003-1.035) Urine Protein 30mg/dL (NEG,TRACE) Urine Glucose (UA) Negativemg/dL (NEGATIVE) Urine Ketones Negativemg/dL (NEGATIVE) Urine Occult Blood Trace (NEGATIVE) Urine Nitrite Positive (NEGATIVE) Urine Bilirubin Negative (NEGATIVE) Urine Urobilinogen Normalmg/dL (NORMAL) Urine Leukocyte Esterase Small (NEGATIVE) Urine RBC 0-2/hpf (0-2) Urine WBC Packed/hpf (0-5) Urine Epithelial Cells Few/hpf (NONE-MOD) Urine Crystals None seen (NONE SEEN) Urine Bacteria Many/hpf (NONE-FEW) Urine Hyaline Casts None/lpf (NONE) Urine Granular Casts None seen (NONE SEEN) Urine Waxy Casts None seen (NONE SEEN) Urine Red Blood Cell Casts None seen (NONE SEEN) Urine White Blood Cell Casts None seen (NONE SEEN) Urine Mucus None seen (None Seen) Urine Trichomonas None seen (NONE SEEN) Urine Yeast None (NONE SEEN) Urinalysis Comment None Urine Culture Reflexed Indicated Phosphorus Level 5.0mg/dL (2.5-4.9) D-Dimer 0.52mg/L FEU (<0.50) Test 09/01/16 20:38 09/02/16 13:32 09/02/16 14:15 09/04/16 02:35 Troponin T 0.066ug/L (0.0-0.011) Hematology Comments Haptoglobin < 10mg/dL (34-200) Lactate Dehydrogenase 242U/L (100-190) Procalcitonin 0.04ng/mL (0.00-0.08) Test 09/10/16 05:32 09/10/16 17:10 09/26/16 17:24 10/03/16 03:35 Pro-B-Type Natriuretic Peptide 91931um/mL (0-486) Lactic Acid Level 1.0mmol/L (0.4-2.0) Direct Bilirubin 0.2mg/dL (0.0-0.3) White Blood Count 9.7th/mm3 (3.8-10.1) Red Blood Count 3.27mil/mm3 (4.40-5.80) Hemoglobin 10.0g/dL (13.8-17.2) Hematocrit 31.9% (41.0-50.0) Mean Corpuscular Volume 97.6fL (81-100) Mean Corpuscular Hemoglobin 30.6pg (27.0-35.0) Mean Corpuscular Hemoglobin Concent 31.3% (32.0-37.0) Red Cell Distribution Width 15.1% (12.3-15.4) Platelet Count 478bil/L (150-400) Neutrophils (%) (Auto) 89.2% (40-74) Lymphocytes (%) (Auto) 5.8% (14-46) Monocytes (%) (Auto) 4.1% (4-12) Eosinophils (%) (Auto) 0.4% (0-5) Basophils (%) (Auto) 0.1% (0-3) Prothrombin Time 14.1sec (8.1-12.5) Prothromb Time International Ratio 1.31ratio Sodium Level 142mEq/L (134-144) Potassium Level 3.5mEq/L (3.5-5.2) Chloride Level 108mEq/L (97-108) Carbon Dioxide Level 21mmol/L (18-29) Blood Urea Nitrogen 19mg/dL (8-27) Creatinine 1.36mg/dL (0.76-1.27) Estimat Glomerular Filtration Rate 54mL/min (>59) Glucose Level 90mg/dL (60-99) Calcium Level 8.3mg/dL (8.5-10.1) Total Bilirubin 0.3mg/dL (0.0-1.2) Aspartate Amino Transf (AST/SGOT) 21U/L (0-50) Alanine Aminotransferase (ALT/SGPT) 10U/L (0-44) Alkaline Phosphatase 104U/L (25-160) Total Protein 6.0g/dL (6.4-8.4) Albumin 2.9g/dL (3.4-5.0) Discharge Medications Discharge Medications Cholecalciferol (Vitamin D3) (Vitamin D3) 2,000 Unit Capsule 2,000 UNIT PO DAILY (Reported) Citalopram Hydrobromide (Celexa) 20 Mg Tablet 10 MG PO DAILY Prescribed by: JANEY SANCHEZ DO Docusate Sodium (Docusate Sodium) 250 Mg Capsule 250 MG PO QAM (Reported) Gabapentin (Gabapentin) 300 Mg Capsule 300 MG PO TID (Reported) Metoprolol Tartrate (Metoprolol Tartrate) 25 Mg Tablet 25 MG PO BID (Reported) Omeprazole (Omeprazole) 20 Mg Capsule.dr 20 MG PO DAILY (Reported) Prazosin (Prazosin) 1 Mg Capsule 3 MG PO HS (Reported) Quetiapine Fumarate (Quetiapine Fumarate) 25 Mg Tablet 50 MG PO HS Prescribed by: JOEL HENDRICKSON MD Tamsulosin (Flomax) 0.4 Mg Capsule 0.4 MG PO DAILY (Reported) Venlafaxine (Venlafaxine) 75 Mg Tablet 75 MG PO TID (Reported) Warfarin Sodium (Warfarin Sodium) 5 Mg Tablet 5 MG PO DAILY (Reported) As needed Acetaminophen (Acetaminophen) 500 Mg Tablet 500 MG PO BID PRN PRN For Pain ( Reported) Melatonin/Pyridoxine HCl (B6) (Melatonin 3 mg Tablet) 1 Each Tablet 1 EACH PO HS PRN PRN Insomnia (Reported) Oxycodone (Roxicodone) 5 Mg Tablet 5 MG PO Q4H PRN PRN For Pain Prescribed by: JOEL HENDRICKSON MD Followup Plan Disposition: [facility] Discharge Diet: Heart Healthy Discharge Activity: Other (assist with PT ) Patient Instructions Discharged to [facility] Mid-level Provider: Elina Fung PA-C Follow-up with Mid-level in: 4 weeks Time spent 45 min Joel Hendrickson MD Oct 05, 2016 11:38
--- NOTE | 2016-10-05 16:15 | NUR ---
Discharge 0854 - Spoke Erik Mueller from Physical Therapy (PT) who said he would try to work with the patient one more time. He said the patient had refused PT multiple times. 0945 - Discussed his care with Dr. Mckenna, Dr. Marx, and the rest of the multidisciplinary care team. 1000 - Erik called to say that he had attempted to work with the patient, but he had been complaining of severe pain in his left hip/leg, was very weak, and was swollen all over. He said he didn't feel it was safe to work with the patient. About 1100 - Went to assess the patient and noted how weak and pale he was. Also noted, the generalized pitting edema he had and that his lungs sounded wet. Dr. Mckenna came in to assess him as well and was notified of his situation. He said that unfortunately he was failing to thrive and our goal of care was comfort for the patient and transport to a assisted facility. 1414 - Called [facility] to give a [id number] report, but the nurses were in the middle of shift change and were unavailable. Told the medical supply technician that this nurse would try to call back later. About 1500 - IV Therapy came by and discontinued his Midline. 1510 - Called [facility] as they had wanted to come early to pick him up instead of the originally scheduled time of 1600. Informed them that, unfortunately, they could not as the patient's DPOA wanted to be present during the transport and was planning to come in at 1600. 1524 - Called [facility] again and spoke to Nurse Whyte who was given report. 1545 - Retrieved his two sealed bags of home medications from the pharmacy. One of the bags had Oxycodone in it. Also, retrieved his sealed bag of valuables from the ED safe with $100 dollars in it. These were placed in a patient belonging bag and given to the two pan washer hand who came to pick him up. 1615 - He left at this time with all his belongings. Called the facility again to notify them of his departure, the medications, and his money. Unable to get in contact with Pato so the message was passed on to Desiree. Darwin, his DPOA, was present and saw him off on the stretcher. He thanked staff for their care of the patient. Addendum: 10/05/16 at 1829 by TREV LAKE RN 0945 - During morning rounds this nurse notified the team that he had been complaining of left leg pain for the last 24 hours, he did not appear to be on any DVT prophylaxis, and was refusing the SCDs. This information was acknowledged.
== END 2016-10-05 16:19 | DRG 291 ==
LOC: SED 15:31 → PCC 19:38 → MPC 09-09 13:27 → PCC 09-10 19:39
PROVIDERS: ADMIT Hospitalist; ATTEND Hospitalist
PROC: 5A09358 Assistance with Respiratory Ventilation, Less than 24 Consecutive Hours, Intermittent Positive Airway Pressure (ICD-10-PCS; principal; 2016-09-10)
PROC: 4A033R1 Measurement of Arterial Saturation, Peripheral, Percutaneous Approach (ICD-10-PCS; 2016-09-10)
DX: I50.33 Acute on chronic diastolic (congestive) heart failure (principal); J96.20 Acute and chronic respiratory failure, unspecified whether with hypoxia or hypercapnia; J96.02 Acute respiratory failure with hypercapnia; G93.41 Metabolic encephalopathy; N39.0 Urinary tract infection, site not specified; I24.8 Other forms of acute ischemic heart disease; N18.4 Chronic kidney disease, stage 4 (severe); N17.9 Acute kidney failure, unspecified; K63.2 Fistula of intestine; S42.292A Other displaced fracture of upper end of left humerus, initial encounter for closed fracture; I48.2 Chronic atrial fibrillation; Z95.0 Presence of cardiac pacemaker; Z86.711 Personal history of pulmonary embolism; Z79.01 Long term (current) use of anticoagulants; Z98.84 Bariatric surgery status; R79.1 Abnormal coagulation profile; Z79.52 Long term (current) use of systemic steroids; Z87.891 Personal history of nicotine dependence; F43.12 Post-traumatic stress disorder, chronic; F41.9 Anxiety disorder, unspecified; F32.9 Major depressive disorder, single episode, unspecified; Z87.01 Personal history of pneumonia (recurrent); D64.9 Anemia, unspecified; R82.99 Other abnormal findings in urine; Z16.12 Extended spectrum beta lactamase (ESBL) resistance; R53.81 Other malaise; R19.7 Diarrhea, unspecified; R29.6 Repeated falls; Z93.3 Colostomy status; Z22.39 Carrier of other specified bacterial diseases; S42.032A Displaced fracture of lateral end of left clavicle, initial encounter for closed fracture; S52.032A Displaced fracture of olecranon process with intraarticular extension of left ulna, initial encounter for closed fracture; W19.XXXA Unspecified fall, initial encounter; Z51.5 Encounter for palliative care